=== PATIENT | female | born 1975 | race Caucasian/White ===

== ENCOUNTER 2017-12-13 01:00 | Emergency (ER) | payer SELFPAY ==
[2017-12-13 01:10] VITALS: BP 169/105; PULSE 89; RESP 18; TEMP 98.4
--- NOTE | 2017-12-13 01:27 | ED ---
Upper Extremity HPI - General Chief Complaint: Extremity Injury, Lower Stated Complaint: R Thumb Injury Time Seen by Provider: 12/13/17 01:17 Source: patient Mode of arrival: ambulatory Limitations: no limitations - History of Present Illness Initial Comments: This patient is a 42-year-old woman who presents to be evaluated for right thumb injury. The patient states that about 3 days ago she was doing some work with her hands and then "jammed" her thumb. She states that when she moved her hand she struck the end of her thumb directly. She indicates pain through the entire length of her thumb and the nail as well. Complaint: Injury to:: right, finger Onset/Timin -: days(s) (First) Other Extremity Injury: Fingers: Right (Thumb) Other Injuries: none Handedness: right Improves With: immobilization, medication Worsens With: movement of extremity Context: direct blow Associated Symptoms: denies other symptoms - Related Data Home Medications Medication Instructions Recorded Confirmed Ibuprofen [Motrin] 800 mg PO Q8HR PRN 12/22/15 10/17/16 Loperamide [Imodium] 2 mg PO QID 12/22/15 10/17/16 Dicyclomine HCl [Bentyl] 20 mg PO TID 04/02/16 10/17/16 Hydrochlorothiazide [Hydrodiuril] 12.5 mg PO DAILY 10/17/16 10/17/16 Previous Rx's Medication Instructions Recorded Cyclobenzaprine [Flexeril] 10 mg PO TID #14 tab 10/17/16 Ibuprofen [Motrin] 800 mg PO Q6HR PRN #20 tab 10/17/16 traMADol HCl [Ultram] 50 mg PO Q6H PRN #20 tab 12/13/17 Allergies Allergy/AdvReac Type Severity Reaction Status Date / Time Penicillins Allergy Unknown Verified 12/13/17 01:10 prochlorperazine edisylate Allergy Unknown Verified 12/13/17 01:10 [From Compazine] prochlorperazine maleate Allergy Unknown Verified 12/13/17 01:10 [From Compazine] Review of Systems ROS Statement: Those systems with pertinent positive or pertinent negative responses have been documented in the HPI. ROS Other: All systems not noted in ROS Statement are negative. Constitutional: Denies: fever, chills, weakness Musculoskeletal: Reports: as per HPI, arthralgia Skin: Denies: lesions Neurological: Denies: weakness, numbness, paresthesias Past Medical History Additional Past Medical History / Comment(s): anxiety,depression, irritable bowel, ptsd, crohn's disease History of Any Multi-Drug Resistant Organisms: None Reported Past Surgical History: No Surgical Hx Reported Additional Past Surgical History / Comment(s): laprascopy Past Psychological History: Anxiety, Depression, Panic Disorder, PTSD Smoking Status: Never smoker Past Alcohol Use History: None Reported Past Drug Use History: Marijuana General Exam Limitations: no limitations General appearance: alert, in no apparent distress Cardiovascular Exam: Present: other (Normal radial pulse and normal capillary refill) Right Forearm Wrist exam: Present: normal inspection, full ROM. Absent: tenderness, swelling Hand Wrist exam: Present: normal inspection, full ROM, tenderness (Right thumb) , swelling (Right thumb), subungual hematoma (There is approximately 5% subungual hematoma, not large enough for drainage), other (Patient does have some mild swelling and diffuse tenderness or upper thumb without point tenderness or palpable deformity.). Absent: abrasion, laceration, deformity, crepitus, dislocation, erythema, amputation, nail avulsion Neuro motor exam: Present: thumb opposition intact, thumb IP flexion intact, thumb adduction intact Neurosensory exam: Present: 2-point discrimination, radial nerve intact, ulnar nerve intact, median nerve intact Vascular: Present: normal capillary refill, radial pulse (Normal) Neurological exam: Present: alert. Absent: motor sensory deficit Course Vital Signs 12/13/17 01:06 Temperature 98.4 F Pulse Rate 89 Respiratory 18 Rate Blood Pressure 169/105 O2 Sat by Pulse 100 Oximetry Procedures - Orthopedic Splinting/Casting Injury #1 Side: right Upper Extremity Injury Location: finger (Thumb) Upper Extremity Immobilizer: thumb spica Disposition Clinical Impression: Sprain of hand, thumb, right Disposition: HOME SELF-CARE Condition: Good Instructions: Finger Sprain (ED) Prescriptions: traMADol HCl [Ultram] 50 mg PO Q6H PRN #20 tab PRN Reason: Pain Referrals: None,Stated [Primary Care Provider] - 1-2 days
--- NOTE | 2017-12-13 01:40 | XR ---
EXAMINATION TYPE: XR hand complete RT DATE OF EXAM: 12/13/2017 COMPARISON: NONE HISTORY: Thumb injury and pain TECHNIQUE: 4 views FINDINGS: I see no fracture nor dislocation. There is minor spurring of the IP joints. There are no e rosions. The thumb appears intact. Metacarpals are intact. IMPRESSION: No acute abnormality of the right hand.
[2017-12-13] MEDS ORDERED: traMADol 50 MG TAB PO STA (01:43)
== END 2017-12-13 02:25 | disposition home or self-care (01) ==
LOC: EC 01:00
DX: S63.601A Unspecified sprain of right thumb, initial encounter (principal); K58.9 Irritable bowel syndrome, unspecified; K50.90 Crohn's disease, unspecified, without complications; Z79.899 Other long term (current) drug therapy; Z88.0 Allergy status to penicillin; Z88.8 Allergy status to other drugs, medicaments and biological substances; W22.8XXA Striking against or struck by other objects, initial encounter; Y93.89 Activity, other specified
CPT/HCPCS: 29125; 99283

== ENCOUNTER 2018-02-03 13:49 | Emergency (ER) | payer OTHER ==
[2018-02-03 14:45] LABS: Basophils % (A) 1 %; Eosinophils # (A) 0.1 k/uL (0-0.7); Eosinophils % (A) 2 %; HCT 38.7 % (34.0-46.0); HGB 13.5 gm/dL (11.4-16.0); Lymphocytes # (A) 1.5 k/uL (1.0-4.8); Lymphocytes % (A) 19 %; MCH 30.3 pg (25.0-35.0); MCHC 34.8 g/dL (31.0-37.0); MCV 87.1 fL (80.0-100.0); Mean Platelet Volume 6.6; Monocytes # (A) 0.5 k/uL (0-1.0); Monocytes % (A) 6 %; Neutrophils # (A) 5.7 k/uL (1.3-7.7); Neutrophils % (A) 71 %; Platelet Count 323 k/uL (150-450); RBC 4.44 m/uL (3.80-5.40); RDW 12.8 % (11.5-15.5)
[2018-02-03 14:51] LABS: ALT 32 U/L (9-52); AST 26 U/L (14-36); Albumin 3.9 g/dL (3.5-5.0); Alkaline Phosphatase 65 U/L (38-126); Anion Gap 14 mmol/L; Blood Urea Nitrogen 12 mg/dL (7-17); Calcium 9.5 mg/dL (8.4-10.2); Carbon Dioxide 26 mmol/L (22-30); Chloride 105 mmol/L (98-107); Glucose 76 mg/dL (74-99); Potassium 3.3 mmol/L (3.5-5.1); Sodium 145 mmol/L (137-145); Total Bilirubin 0.4 mg/dL (0.2-1.3); Total Protein 7.2 g/dL (6.3-8.2)
[2018-02-03] MEDS ORDERED: SODIUM CHLORIDE 0.9% 1,000 ML IV STA (16:52)
[2018-02-03] MEDS ORDERED: MECLIZINE 12.5 MG TAB PO STA (16:53)
[2018-02-03] MEDS ORDERED: METOCLOPRAMIDE 5 MG/ML 2 ML VIAL IVP STA (16:54)
[2018-02-03 17:33] LABS: Partial Thromboplastin Time 24.1 sec (22.0-30.0); Prothrombin Time 9.7 sec (9.0-12.0)
[2018-02-03 17:35] LABS: Creatine Kinase 225 U/L (30-135)
[2018-02-03 17:48] LABS: Troponin I <0.012 ng/mL (0.000-0.034)
--- NOTE | 2018-02-03 18:02 | ED ---
Dizziness HPI - General Chief Complaint: Dizziness Stated Complaint: Weakness Time Seen by Provider: 02/03/18 16:03 Source: patient, RN notes reviewed, old records reviewed Mode of arrival: ambulatory Limitations: no limitations - History of Present Illness Initial Comments: 42-year-old female presents emergency department today chief complaint of back of balance. She reports that she's been having some headaches and complains of some right sharp ear pain. She also states that she is just been feeling generally weak and fatigued. Complains of chest pain, short of breath and some nausea episodes. She relates that she's been having some chest pain and dyspnea with exertion. Denies any fever or chills. She states she has no significant cardiac history. She reports that she feels like the room is spinning when she is at work. - Related Data Home Medications Medication Instructions Recorded Confirmed Loperamide [Imodium] 2 mg PO TID 12/22/15 02/03/18 Dextroamphetamine/Amphetamine 30 mg PO BID 02/03/18 02/03/18 [Adderall] Escitalopram [Lexapro] 5 mg PO DAILY 02/03/18 02/03/18 Ibuprofen [Motrin Ib] 400 mg PO Q6H PRN 02/03/18 02/03/18 clonazePAM [KlonoPIN] 0.5 mg PO BID 02/03/18 02/03/18 traZODone HCL 100 mg PO HS 02/03/18 02/03/18 Previous Rx's Medication Instructions Recorded Meclizine [Antivert] 25 mg PO BID #15 tab 02/03/18 Ondansetron Odt [Zofran Odt] 4 mg PO Q12HR PRN #20 tab 02/03/18 Allergies Allergy/AdvReac Type Severity Reaction Status Date / Time Penicillins Allergy Unknown Verified 02/03/18 16:39 prochlorperazine edisylate Allergy Unknown Verified 02/03/18 16:39 [From Compazine] prochlorperazine maleate Allergy Unknown Verified 02/03/18 16:39 [From Compazine] Review of Systems ROS Statement: Those systems with pertinent positive or pertinent negative responses have been documented in the HPI. ROS Other: All systems not noted in ROS Statement are negative. Past Medical History Additional Past Medical History / Comment(s): anxiety,depression, irritable bowel, ptsd, crohn's disease History of Any Multi-Drug Resistant Organisms: None Reported Past Surgical History: No Surgical Hx Reported Additional Past Surgical History / Comment(s): laprascopy Past Psychological History: Anxiety, Depression, Panic Disorder, PTSD Smoking Status: Never smoker Past Alcohol Use History: None Reported Past Drug Use History: Marijuana General Exam - General Exam Comments Initial Comments: 42-year-old female multiple chief complaints. Does not appear to be in any acute distress. Does complain of some dizziness. Only onto the bed rail to keep her per stable. Limitations: no limitations General appearance: alert, in no apparent distress Head exam: Present: atraumatic, normocephalic, normal inspection Eye exam: Present: normal appearance, PERRL, EOMI. Absent: scleral icterus, conjunctival injection, periorbital swelling ENT exam: Present: normal exam, normal oropharynx, mucous membranes moist Neck exam: Present: normal inspection. Absent: tenderness, meningismus, lymphadenopathy Respiratory exam: Present: normal lung sounds bilaterally. Absent: respiratory distress, wheezes, rales, rhonchi, stridor Cardiovascular Exam: Present: regular rate, normal rhythm, normal heart sounds. Absent: systolic murmur, diastolic murmur, rubs, gallop, clicks GI/Abdominal exam: Present: soft, normal bowel sounds. Absent: distended, tenderness, guarding, rebound, rigid Extremities exam: Present: normal inspection, full ROM, normal capillary refill. Absent: tenderness, pedal edema, joint swelling, calf tenderness Back exam: Present: normal inspection Neurological exam: Present: alert, oriented X3, CN II-XII intact Psychiatric exam: Present: normal affect, normal mood Skin exam: Present: warm, dry, intact, normal color. Absent: rash Course Vital Signs 02/03/18 02/03/18 02/03/18 13:50 17:47 19:04 Temperature 98.6 F Pulse Rate 100 91 76 Respiratory 18 16 16 Rate Blood Pressure 169/94 138/93 140/81 O2 Sat by Pulse 100 99 98 Oximetry - Reevaluation(s) Reevaluation #1: 02/03/18 20:04 Patient is reevaluated and resting comfortably in bed and sleeping. She reports her dizziness is resolving. At this time I discussed with the patient possible admission. 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 Medical Decision Making - Medical Decision Making This patient's a 42-year-old female presents emergency department today chief complaint of dizziness, room spinning. She also reports occasional chest pain and dyspnea on exertion. At this time patient is given IV fluids and lab work obtained. She is given Reglan and Benadryl for dizziness and nausea. She also given meclizine. Patient reports she's also had some episodes of hitting her head due to dizziness. CT brain was ordered negative for any abnormality's. Chest x-ray and EKG reviewed and normal. Patient's other lab work was unremarkable. She did have a mildly elevated CK-MB. When I review out of patient she was sleeping and resting comfortably. I informed her of all the results. I discussed possible admission for workup for the dyspnea on exertion and occasional chest pain. Patient states that she would actually prefer to go home. I will give the patient referral for us for cardiology and primary care provider. Discussed with normal EKG and normal troponin at that time they can be acceptable. I did discuss very strict return parameters and regards to further episodes of chest pain or shortness of breath. I at this time I do believe patient's dizziness is consistent with vertigo with her description of the room spinning. I will discharge the patient with meclizine nausea medication. Patient agrees to treatment plan will comply. - Lab Data Result diagrams: 02/03/18 14:21 02/03/18 14:21 Lab Results 02/03/18 02/03/18 02/03/18 Range/Units 14:21 14:21 14:21 WBC 8.0 (3.8-10.6) k/uL RBC 4.44 (3.80-5.40) m/uL Hgb 13.5 (11.4-16.0) gm/dL Hct 38.7 (34.0-46.0) % MCV 87.1 (80.0-100.0) fL MCH 30.3 (25.0-35.0) pg MCHC 34.8 (31.0-37.0) g/dL RDW 12.8 (11.5-15.5) % Plt Count 323 (150-450) k/uL Neutrophils % 71 % Lymphocytes % 19 % Monocytes % 6 % Eosinophils % 2 % Basophils % 1 % Neutrophils # 5.7 (1.3-7.7) k/uL Lymphocytes # 1.5 (1.0-4.8) k/uL Monocytes # 0.5 (0-1.0) k/uL Eosinophils # 0.1 (0-0.7) k/uL Basophils # 0.0 (0-0.2) k/uL PT (9.0-12.0) sec INR (<1.2) APTT (22.0-30.0) sec Sodium 145 (137-145) mmol/L Potassium 3.3 L (3.5-5.1) mmol/L Chloride 105 (98-107) mmol/L Carbon Dioxide 26 (22-30) mmol/L Anion Gap 14 mmol/L BUN 12 (7-17) mg/dL Creatinine 0.63 (0.52-1.04) mg/dL Est GFR (CKD-EPI)AfAm >90 (>60 ml/min/1.73 sqM) Est GFR (CKD-EPI)NonAf >90 (>60 ml/min/1.73 sqM) Glucose 76 (74-99) mg/dL Calcium 9.5 (8.4-10.2) mg/dL Magnesium (1.6-2.3) mg/dL Total Bilirubin 0.4 (0.2-1.3) mg/dL AST 26 (14-36) U/L ALT 32 (9-52) U/L Alkaline Phosphatase 65 (38-126) U/L Total Creatine Kinase 225 H (30-135) U/L CK-MB (CK-2) 5.0 H* (0.0-2.4) ng/mL CK-MB (CK-2) Rel Index 2.2 Troponin I <0.012 (0.000-0.034) ng/mL Total Protein 7.2 (6.3-8.2) g/dL Albumin 3.9 (3.5-5.0) g/dL Urine Color Urine Appearance (Clear) Urine pH (5.0-8.0) Ur Specific [place] (1.001-1.035) Urine Protein (Negative) Urine Glucose (UA) (Negative) Urine Ketones (Negative) Urine Blood (Negative) Urine Nitrite (Negative) Urine Bilirubin (Negative) Urine Urobilinogen (<2.0) mg/dL Ur Leukocyte Esterase (Negative) Ur Squamous Epith Cells (0-4) /hpf Urine Mucus (None) /hpf Urine Yeast (Budding) (None) /hpf Urine HCG, Qual (Not Detectd) 02/03/18 02/03/18 02/03/18 Range/Units 14:21 14:21 18:04 WBC (3.8-10.6) k/uL RBC (3.80-5.40) m/uL Hgb (11.4-16.0) gm/dL Hct (34.0-46.0) % MCV (80.0-100.0) fL MCH (25.0-35.0) pg MCHC (31.0-37.0) g/dL RDW (11.5-15.5) % Plt Count (150-450) k/uL Neutrophils % % Lymphocytes % % Monocytes % % Eosinophils % % Basophils % % Neutrophils # (1.3-7.7) k/uL Lymphocytes # (1.0-4.8) k/uL Monocytes # (0-1.0) k/uL Eosinophils # (0-0.7) k/uL Basophils # (0-0.2) k/uL PT 9.7 (9.0-12.0) sec INR 1.0 (<1.2) APTT 24.1 (22.0-30.0) sec Sodium (137-145) mmol/L Potassium (3.5-5.1) mmol/L Chloride (98-107) mmol/L Carbon Dioxide (22-30) mmol/L Anion Gap mmol/L BUN (7-17) mg/dL Creatinine (0.52-1.04) mg/dL Est GFR (CKD-EPI)AfAm (>60 ml/min/1.73 sqM) Est GFR (CKD-EPI)NonAf (>60 ml/min/1.73 sqM) Glucose (74-99) mg/dL Calcium (8.4-10.2) mg/dL Magnesium 1.8 (1.6-2.3) mg/dL Total Bilirubin (0.2-1.3) mg/dL AST (14-36) U/L ALT (9-52) U/L Alkaline Phosphatase (38-126) U/L Total Creatine Kinase (30-135) U/L CK-MB (CK-2) (0.0-2.4) ng/mL CK-MB (CK-2) Rel Index Troponin I (0.000-0.034) ng/mL Total Protein (6.3-8.2) g/dL Albumin (3.5-5.0) g/dL Urine Color Yellow Urine Appearance Cloudy H (Clear) Urine pH 6.5 (5.0-8.0) Ur Specific [place] 1.022 (1.001-1.035) Urine Protein Trace H (Negative) Urine Glucose (UA) Negative (Negative) Urine Ketones Negative (Negative) Urine Blood Negative (Negative) Urine Nitrite Negative (Negative) Urine Bilirubin Negative (Negative) Urine Urobilinogen <2.0 (<2.0) mg/dL Ur Leukocyte Esterase Negative (Negative) Ur Squamous Epith Cells 5 H (0-4) /hpf Urine Mucus Rare H (None) /hpf Urine Yeast (Budding) Many H (None) /hpf Urine HCG, Qual (Not Detectd) 02/03/18 Range/Units 18:04 WBC (3.8-10.6) k/uL RBC (3.80-5.40) m/uL Hgb (11.4-16.0) gm/dL Hct (34.0-46.0) % MCV (80.0-100.0) fL MCH (25.0-35.0) pg MCHC (31.0-37.0) g/dL RDW (11.5-15.5) % Plt Count (150-450) k/uL Neutrophils % % Lymphocytes % % Monocytes % % Eosinophils % % Basophils % % Neutrophils # (1.3-7.7) k/uL Lymphocytes # (1.0-4.8) k/uL Monocytes # (0-1.0) k/uL Eosinophils # (0-0.7) k/uL Basophils # (0-0.2) k/uL PT (9.0-12.0) sec INR (<1.2) APTT (22.0-30.0) sec Sodium (137-145) mmol/L Potassium (3.5-5.1) mmol/L Chloride (98-107) mmol/L Carbon Dioxide (22-30) mmol/L Anion Gap mmol/L BUN (7-17) mg/dL Creatinine (0.52-1.04) mg/dL Est GFR (CKD-EPI)AfAm (>60 ml/min/1.73 sqM) Est GFR (CKD-EPI)NonAf (>60 ml/min/1.73 sqM) Glucose (74-99) mg/dL Calcium (8.4-10.2) mg/dL Magnesium (1.6-2.3) mg/dL Total Bilirubin (0.2-1.3) mg/dL AST (14-36) U/L ALT (9-52) U/L Alkaline Phosphatase (38-126) U/L Total Creatine Kinase (30-135) U/L CK-MB (CK-2) (0.0-2.4) ng/mL CK-MB (CK-2) Rel Index Troponin I (0.000-0.034) ng/mL Total Protein (6.3-8.2) g/dL Albumin (3.5-5.0) g/dL Urine Color Urine Appearance (Clear) Urine pH (5.0-8.0) Ur Specific [place] (1.001-1.035) Urine Protein (Negative) Urine Glucose (UA) (Negative) Urine Ketones (Negative) Urine Blood (Negative) Urine Nitrite (Negative) Urine Bilirubin (Negative) Urine Urobilinogen (<2.0) mg/dL Ur Leukocyte Esterase (Negative) Ur Squamous Epith Cells (0-4) /hpf Urine Mucus (None) /hpf Urine Yeast (Budding) (None) /hpf Urine HCG, Qual Not Detected (Not Detectd) 02/03/18 20:04 EKG performed at 1421 cm number sinus rhythm, ventricular rate 94 bpm. VT interval 140 ms. QRS duration 96 ms. QT QTc is 366/457 ms. No evidence of ST elevation or T-wave inversion. No evidence of atrial or ventricular arrhythmias. - Radiology Data Radiology results: report reviewed Chest x-ray was reviewed and negative for any abnormalities. CT brain was negative for any abnormalities. Disposition Clinical Impression: Vertigo, Dizziness Disposition: HOME SELF-CARE Condition: Good Instructions: Dizziness (ED) Additional Instructions: Patient advised to follow-up with primary care provider. Return to emergency department if any alarming signs or symptoms occur. Prescriptions: Meclizine [Antivert] 25 mg PO BID #15 tab Ondansetron Odt [Zofran Odt] 4 mg PO Q12HR PRN #20 tab PRN Reason: Nausea Referrals: None,Stated [Primary Care Provider] - 1-2 days Trae Yanes MD [STAFF PHYSICIAN] - 1-2 days Silva Paredes MD [STAFF PHYSICIAN] - 1-2 days Carson East MD [STAFF PHYSICIAN] - 1-2 days Sukhdev Winters MD [STAFF PHYSICIAN] - 1-2 days Time of Disposition: 20:07
[2018-02-03 18:19] LABS: Appearance,Urine Cloudy (Clear); Bilirubin,Urine Negative (Negative); Blood,Urine Negative (Negative); Budding Yeast,Urine Many /hpf; Color,Urine Yellow; Glucose,Urine (UA) Negative (Negative); Ketones,Urine Negative (Negative); Leukocyte Esterase,Urine Negative (Negative); Mucus,Urine Rare /hpf; Nitrite,Urine Negative (Negative); PH, Urine 6.5 (5.0-8.0); Protein,Urine Trace (Negative); Specific Gravity,Urine 1.022 (1.001-1.035); Squamous Epithelial Cell,Urine 5 /hpf (0-4); Urobilinogen,Urine <2.0 mg/dL (<2.0)
--- NOTE | 2018-02-03 18:49 | CT ---
EXAMINATION TYPE: CT brain wo con DATE OF EXAM: 02/03/2018 COMPARISON: NONE HISTORY: Weakness and dizziness CT DLP: 822.6 mGycm. Automated Exposure Control for Dose Reduction was Utilized. TECHNIQUE: CT scan of the head is performed without contrast. FINDINGS: Ventricles and sulci appear normal. There is no mass effect nor midline shift. There is n o sign of intracranial hemorrhage. The calvarium is intact. CONCLUSION: Normal CT scan of the brain.
[2018-02-03] MEDS ORDERED: SODIUM CHLORIDE 0.9% 1,000 ML IV SCH (19:00)
--- NOTE | 2018-02-03 19:30 | XR ---
EXAMINATION TYPE: XR chest 2V DATE OF EXAM: 02/03/2018 COMPARISON: 10/17/2016 HISTORY: Weakness TECHNIQUE: Frontal and lateral views of the chest are obtained. FINDINGS: Heart and mediastinum are within normal limits. Lungs are clear. Diaphragm is normal. Bony thorax appears intact. IMPRESSION: Normal chest. No change.
[2018-02-03 20:31] VITALS: BP 119/84; PULSE 84; RESP 18; TEMP 97.8
== END 2018-02-03 20:30 | disposition home or self-care (01) ==
LOC: EC 13:49
DX: R42 Dizziness and giddiness (principal); R51 Headache; H92.01 Otalgia, right ear; R07.9 Chest pain, unspecified; R06.02 Shortness of breath; R11.0 Nausea; R53.83 Other fatigue; R53.1 Weakness; K58.9 Irritable bowel syndrome, unspecified; F32.9 Major depressive disorder, single episode, unspecified; F41.9 Anxiety disorder, unspecified; F41.0 Panic disorder [episodic paroxysmal anxiety]; Z79.899 Other long term (current) drug therapy; Z88.0 Allergy status to penicillin; Z88.8 Allergy status to other drugs, medicaments and biological substances
CPT/HCPCS: 36415; 93005; 80053; 82550; 82553; 83735; 84484; 85025; 85610; 85730; 81001; 81025; 71046; 70450; 99285; 96374; 96361; J2765

== ENCOUNTER 2018-04-02 20:46 | Emergency (ER) | payer SELFPAY ==
[2018-04-02] MEDS ORDERED: SODIUM CHLORIDE 0.9% 500 ML IV STA (21:56)
[2018-04-02] MEDS ORDERED: LORazepam 2 MG/ML INJ IV STA (21:56)
[2018-04-02] MEDS ORDERED: SCOPOLAMINE 1.5MG/72HR PATCH TRANSDERM STA (21:57)
--- NOTE | 2018-04-02 22:01 | ED ---
General Adult HPI - General Chief complaint: Dizziness Stated complaint: Dizziness Time Seen by Provider: 04/02/18 21:36 Source: patient, RN notes reviewed Mode of arrival: wheelchair Limitations: no limitations - History of Present Illness Initial comments: Patient is a pleasant 42-year-old female presenting to the emergency department complaining of dizziness. Symptoms have been intermittent for the past couple of days. Patient does have a history of similar symptoms previously at least 6 times. Patient has been seen in the emergency department previously for this and had reported negative head CT. Patient states symptoms are worse with getting up and better with lying down or rest. Patient just started new job and feels stress is a contributing factor. No confusion. No weakness. Patient also adds that she has lumps in her breast for over a year. - Related Data Home Medications Medication Instructions Recorded Confirmed Loperamide [Imodium] 2 mg PO TID 12/22/15 04/02/18 Dextroamphetamine/Amphetamine 30 mg PO BID 02/03/18 04/02/18 [Adderall] Escitalopram [Lexapro] 5 mg PO DAILY 02/03/18 04/02/18 Ibuprofen [Motrin Ib] 400 mg PO Q6H PRN 02/03/18 04/02/18 clonazePAM [KlonoPIN] 0.5 mg PO BID 02/03/18 04/02/18 traZODone HCL 100 mg PO HS 02/03/18 04/02/18 Previous Rx's Medication Instructions Recorded Meclizine [Antivert] 25 mg PO BID #15 tab 02/03/18 Ondansetron Odt [Zofran Odt] 4 mg PO Q12HR PRN #20 tab 02/03/18 Allergies Allergy/AdvReac Type Severity Reaction Status Date / Time Penicillins Allergy Unknown Verified 04/02/18 22:02 prochlorperazine edisylate Allergy Unknown Verified 04/02/18 22:02 [From Compazine] prochlorperazine maleate Allergy Unknown Verified 04/02/18 22:02 [From Compazine] Review of Systems ROS Statement: Those systems with pertinent positive or pertinent negative responses have been documented in the HPI. ROS Other: All systems not noted in ROS Statement are negative. Constitutional: Denies: fever Eyes: Denies: eye pain ENT: Denies: ear pain Respiratory: Denies: cough, dyspnea Cardiovascular: Denies: chest pain Endocrine: Reports: fatigue Gastrointestinal: Reports: nausea. Denies: abdominal pain Genitourinary: Denies: dysuria Musculoskeletal: Denies: back pain Skin: Denies: rash Neurological: Reports: vertigo. Denies: headache, weakness, confusion Psychiatric: Reports: anxiety Past Medical History Additional Past Medical History / Comment(s): anxiety,depression, irritable bowel, ptsd, crohn's disease. vertigo. History of Any Multi-Drug Resistant Organisms: None Reported Past Surgical History: No Surgical Hx Reported Additional Past Surgical History / Comment(s): laprascopy Past Psychological History: Anxiety, Depression, Panic Disorder, PTSD Smoking Status: Never smoker Past Alcohol Use History: None Reported Past Drug Use History: Marijuana General Exam Limitations: no limitations General appearance: alert, in no apparent distress, other (left breast Exam with mild fibrotic feeling lumps. Nontender and mobile. Small. RN Claudette is present.) Head exam: Present: atraumatic Eye exam: Present: normal appearance, PERRL, EOMI. Absent: nystagmus ENT exam: Present: normal oropharynx Neck exam: Present: normal inspection Respiratory exam: Present: normal lung sounds bilaterally Cardiovascular Exam: Present: regular rate, normal rhythm GI/Abdominal exam: Present: soft. Absent: tenderness Extremities exam: Present: normal inspection Neurological exam: Present: alert, oriented X3, CN II-XII intact. Absent: motor sensory deficit Expanded Cranial nerves: EOM's Intact: Normal, Facial Sensation: Normal Cerebellar function: Finger to Nose: Normal Sensory exam: Upper Extremity Light Touch: Normal, Lower Extremity Light Touch: Normal Motor strength exam: RUE: 5, LUE: 5, RLE: 5, LLE: 5 Eye Response: (4) open spontaneously Motor Response: (6) obeys commands Verbal Response: (5) oriented Psychiatric exam: Present: anxious Skin exam: Present: normal color Course Vital Signs 04/02/18 20:57 Temperature 98.7 F Pulse Rate 93 Respiratory 20 Rate Blood Pressure 132/88 O2 Sat by Pulse 100 Oximetry - Reevaluation(s) Reevaluation #1: 04/02/18 21:59 Patient is advised of need for follow-up regarding concerns for her breast. Patient is advised follow-up with the primary care physician and possible surgeon. Patient is advised that she should have ultrasound done as well as mammogram. EKG Findings - EKG Comments: EKG Findings:: Normal sinus rhythm 80. W[place] 158. QRS 82. QT 408. QTC 470. Normal axis. Normal QRS. No acute ST change. Medical Decision Making - Medical Decision Making Patient requesting discharge. Patient states she feels much better after scopolamine patch. Patient had refused further evaluation or other medications. Patient requests a work note for tonight. Patient was again advised for need for close follow-up with primary care physician and breast surgeon. Disposition Clinical Impression: Dizziness Disposition: HOME SELF-CARE Condition: Stable Instructions: Dizziness (ED) Additional Instructions: Please follow-up with primary care physician in the next day or 2 for recheck. Also consider follow-up with breast surgeon, numbers have been provided. Consider mammogram and ultrasound of the breast. Return for confusion, weakness , increased dizziness, speech problems, worsening or changing symptoms or other concerns. Is patient prescribed a controlled substance at d/c from ED?: No Referrals: Amelia Anna MD [STAFF PHYSICIAN] - 1-2 days Funmi Rao MD [STAFF PHYSICIAN] - 1-2 days Time of Disposition: 23:06
[2018-04-02 23:17] VITALS: BP 125/83; PULSE 82; RESP 18; TEMP 98.1
== END 2018-04-02 23:16 | disposition home or self-care (01) ==
LOC: EC 20:46
DX: R42 Dizziness and giddiness (principal); K58.9 Irritable bowel syndrome, unspecified; F32.9 Major depressive disorder, single episode, unspecified; F41.0 Panic disorder [episodic paroxysmal anxiety]; F43.10 Post-traumatic stress disorder, unspecified; Z79.899 Other long term (current) drug therapy; Z88.0 Allergy status to penicillin; Z88.8 Allergy status to other drugs, medicaments and biological substances; Z53.29 Procedure and treatment not carried out because of patient's decision for other reasons
CPT/HCPCS: 93005; 99284

== ENCOUNTER 2018-05-30 08:11 | Emergency (ER) | payer OTHER ==
[2018-05-30 08:17] VITALS: RESP 18; TEMP 98.4
--- NOTE | 2018-05-30 08:32 | ED ---
General Adult HPI - General Chief complaint: Skin/Abscess/Foreign Body Stated complaint: FB left ear (insect) Time Seen by Provider: 05/30/18 08:26 Source: patient, RN notes reviewed Mode of arrival: ambulatory Limitations: no limitations - History of Present Illness Initial comments: Patient is a 43-year-old female presenting to the emergency room today with a chief complaint of a bump to the left ear. She states she woke up this morning and she felt something crawling. She felt the inside of her ear. She states she pushed down on the tragus and believes she killed it. She states she does not feel it moving anymore been strapped. Patient denies any other complaints or symptoms. - Related Data Home Medications Medication Instructions Recorded Confirmed Loperamide [Imodium] 2 mg PO TID 12/22/15 05/30/18 Dextroamphetamine/Amphetamine 30 mg PO BID 02/03/18 05/30/18 [Adderall] Escitalopram [Lexapro] 5 mg PO DAILY 02/03/18 05/30/18 Ibuprofen [Motrin Ib] 400 mg PO Q6H PRN 02/03/18 05/30/18 clonazePAM [KlonoPIN] 0.5 mg PO BID 02/03/18 05/30/18 traZODone HCL 100 mg PO HS 02/03/18 05/30/18 Previous Rx's Medication Instructions Recorded Meclizine [Antivert] 25 mg PO BID #15 tab 02/03/18 Ondansetron Odt [Zofran Odt] 4 mg PO Q12HR PRN #20 tab 02/03/18 Allergies Allergy/AdvReac Type Severity Reaction Status Date / Time Penicillins Allergy Unknown Verified 05/30/18 08:17 prochlorperazine edisylate Allergy Unknown Verified 05/30/18 08:17 [From Compazine] prochlorperazine maleate Allergy Unknown Verified 05/30/18 08:17 [From Compazine] Review of Systems ROS Statement: Those systems with pertinent positive or pertinent negative responses have been documented in the HPI. ROS Other: All systems not noted in ROS Statement are negative. Past Medical History Additional Past Medical History / Comment(s): anxiety,depression, irritable bowel, ptsd, crohn's disease. vertigo. hypoglycemia History of Any Multi-Drug Resistant Organisms: None Reported Past Surgical History: No Surgical Hx Reported Additional Past Surgical History / Comment(s): laprascopy Past Psychological History: Anxiety, Depression, Panic Disorder, PTSD Smoking Status: Never smoker Past Alcohol Use History: None Reported Past Drug Use History: Marijuana General Exam - General Exam Comments Initial Comments: General: The patient is awake and alert, in no distress, and does not appear acutely ill. Ears, nose, mouth and throat: There are moist mucous membranes and no oral lesions. There is a insect located to left ear canal. Right TM is clear. Neck: The neck is supple. Musculoskeletal: Normal ROM, no tenderness. Strength 5/5. Sensation intact. Neurological: A&O x 3. CN II-XII intact, There are no obvious motor or sensory deficits. Coordination appears grossly intact. Speech is normal. Skin: Skin is warm and dry and no rashes or lesions are noted. Psychiatric: Cooperative, appropriate mood & affect, normal judgment. Limitations: no limitations Course Vital Signs 05/30/18 05/30/18 08:15 08:40 Temperature 98.4 F Pulse Rate 87 84 Respiratory 18 18 Rate Blood Pressure 119/80 126/82 O2 Sat by Pulse 100 98 Oximetry Procedures - Procedures Initial comment: Attempt was made by nursing staff to irrigate the ear. Patient became dizzy. Does have a history of vertigo. She was given meclizine. Patient did have a insect located to the left ear canal. Forceps were used by attending physician Dr. Emmanuel was able to retrieve the insect intact. TM behind it is not clear Disposition Clinical Impression: Ear foreign body Disposition: HOME SELF-CARE Condition: Good Instructions: Ear Foreign Body (ED) Additional Instructions: Please follow-up with family doctor or ENT specialist if symptoms do not completely resolve over the next 2-5 days. Please return to emergency room for any other concerns. Is patient prescribed a controlled substance at d/c from ED?: No Referrals: None,Stated [Primary Care Provider] - 1-2 days Time of Disposition: 09:34
[2018-05-30] MEDS ORDERED: MECLIZINE 12.5 MG TAB PO STA (08:36)
[2018-05-30 08:46] VITALS: BP 126/82; PULSE 84
== END 2018-05-30 09:49 | disposition home or self-care (01) ==
LOC: EC 08:11
DX: T16.2XXA Foreign body in left ear, initial encounter (principal); F41.9 Anxiety disorder, unspecified; F32.9 Major depressive disorder, single episode, unspecified; F43.10 Post-traumatic stress disorder, unspecified; K58.9 Irritable bowel syndrome, unspecified; Z79.899 Other long term (current) drug therapy; Z88.0 Allergy status to penicillin; Z88.8 Allergy status to other drugs, medicaments and biological substances
CPT/HCPCS: 69200; 99282

== ENCOUNTER 2018-06-17 05:19 | Emergency (ER) | payer OTHER ==
[2018-06-17 05:25] VITALS: RESP 16
[2018-06-17 06:24] LABS: Basophils # (A) 0.1 k/uL (0-0.2); Basophils % (A) 0 %; Eosinophils # (A) 0.1 k/uL (0-0.7); Eosinophils % (A) 1 %; HGB 14.9 gm/dL (11.4-16.0); Lymphocytes # (A) 3.1 k/uL (1.0-4.8); Lymphocytes % (A) 21 %; MCH 30.5 pg (25.0-35.0); MCHC 33.1 g/dL (31.0-37.0); MCV 92.1 fL (80.0-100.0); Mean Platelet Volume 6.7; Monocytes # (A) 1.2 k/uL (0-1.0); Monocytes % (A) 8 %; Neutrophils # (A) 9.9 k/uL (1.3-7.7); Neutrophils % (A) 68 %; Platelet Count 352 k/uL (150-450); RBC 4.89 m/uL (3.80-5.40); WBC 14.6 k/uL (3.8-10.6)
[2018-06-17 06:30] LABS: Appearance,Urine Clear (Clear); Bacteria,Urine Rare /hpf; Bilirubin,Urine Negative (Negative); Blood,Urine Trace (Negative); Color,Urine Yellow; Glucose,Urine (UA) Negative (Negative); Hyaline Casts,Urine 36 /lpf (0-2); Ketones,Urine Negative (Negative); Leukocyte Esterase,Urine Negative (Negative); Mucus,Urine Rare /hpf; Nitrite,Urine Negative (Negative); PH, Urine 5.5 (5.0-8.0); Protein,Urine Trace (Negative); RBC,Urine 1 /hpf (0-5); Specific Gravity,Urine 1.022 (1.001-1.035); Urobilinogen,Urine <2.0 mg/dL (<2.0); WBC,Urine 7 /hpf (0-5)
[2018-06-17 06:34] LABS: Albumin 5.1 g/dL (3.5-5.0); Calcium 11.5 mg/dL (8.4-10.2); Total Bilirubin 0.8 mg/dL (0.2-1.3); Total Protein 9.4 g/dL (6.3-8.2)
[2018-06-17 07:05] LABS: Potassium 4.3 mmol/L (3.5-5.1)
[2018-06-17] MEDS ORDERED: SODIUM CHLORIDE 0.9% 1,000 ML IV ONE ×2 (07:20→07:28)
--- NOTE | 2018-06-17 07:23 | ED ---
General Adult HPI - General Chief complaint: Abdominal Pain Stated complaint: Abd pain Time Seen by Provider: 06/17/18 05:30 Source: patient Mode of arrival: ambulatory Limitations: no limitations - History of Present Illness Initial comments: Tabitha is a 43-year-old female with past medical history of Crohn's disease since the emergency department today for evaluation of lower abdominal pain. 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 She reports that she's been doing well. However the past couple days she's developed some lower abdominal pain. Pain is primarily in the suprapubic and right lower abdomen but radiates as a cramping throughout the entire abdomen. Pain is worse with palpation or movement. Pain improved somewhat when laying flat and relaxing. Pain is not associated with eating the patient reports that she's had decreased appetite today. Her last bowel movement was 2 days ago. Patient denies any dysuria or hematuria. Patient does report that approximately 2 years ago she was hospitalized at an outside hospital for a bowel obstruction, she reports that this pain is somewhat similar but lower in her abdomen than previous. Patient reports that her last period was last month, she reports that she is currently sexually active and not use any form of control. She reports there is possibility that she is . - Related Data Home Medications Medication Instructions Recorded Confirmed Loperamide [Imodium] 2 mg PO TID 12/22/15 05/30/18 Dextroamphetamine/Amphetamine 30 mg PO BID 02/03/18 05/30/18 [Adderall] Escitalopram [Lexapro] 5 mg PO DAILY 02/03/18 05/30/18 Ibuprofen [Motrin Ib] 400 mg PO Q6H PRN 02/03/18 05/30/18 clonazePAM [KlonoPIN] 0.5 mg PO BID 02/03/18 05/30/18 traZODone HCL 100 mg PO HS 02/03/18 05/30/18 Previous Rx's Medication Instructions Recorded Meclizine [Antivert] 25 mg PO BID #15 tab 02/03/18 Ondansetron Odt [Zofran Odt] 4 mg PO Q12HR PRN #20 tab 02/03/18 Allergies Allergy/AdvReac Type Severity Reaction Status Date / Time Penicillins Allergy Unknown Verified 08/05/18 08:17 prochlorperazine edisylate Allergy Unknown Verified 05/30/18 08:17 [From Compazine] prochlorperazine maleate Allergy Unknown Verified 05/30/18 08:17 [From streamitazine] Review of Systems ROS Statement: Those systems with pertinent positive or pertinent negative responses have been documented in the HPI. ROS Other: All systems not noted in ROS Statement are negative. Past Medical History Additional Past Medical History / Comment(s): anxiety,depression, irritable bowel, ptsd, crohn's disease. vertigo. hypoglycemia History of Any Multi-Drug Resistant Organisms: None Reported Past Surgical History: No Surgical Hx Reported Additional Past Surgical History / Comment(s): laprascopy Past Psychological History: Anxiety, Depression, Panic Disorder, PTSD Smoking Status: Never smoker Past Alcohol Use History: None Reported Past Drug Use History: Marijuana General Exam Limitations: no limitations Course Vital Signs 06/17/18 05:22 Temperature 97.7 F Pulse Rate 108 H Respiratory 16 Rate Blood Pressure 155/92 O2 Sat by Pulse 100 Oximetry Medical Decision Making - Medical Decision Making Patient with vague abdominal pain, history of Crohn's and bowel obstructions per the patient Labs and imaging were ordered Labs with mild leukocytosis as well as significant acute kidney injury with a creatinine of 1.7, baseline creatinine was 0.6 Urine with no evidence of urinary tract infection or hematuria, however multiple hyaline casts 2L fluid bolus was ordered Computed tomography scan of the abdomen revealed no acute pathology Results were discussed with the patient, patient expresses relief. Patient requesting Motrin for her rheumatoid arthritis pain. I advised patient that due to her kidney injury we should avoid Motrin but she can have Tylenol. Bise patient to follow up with primary care physician and pharmacologist for management of room toyed pain. Also advised her to follow up with gastroenterology due to her history of Crohn's disease not currently being treated Questions pertaining to care were answered to the best of my ability, return parameters were discussed, patient was discharged home in stable condition - Lab Data Result diagrams: 06/17/18 06:08 06/17/18 06:08 Lab Results 06/17/18 06/17/18 06/17/18 Range/Units 06:08 06:08 06:08 WBC 14.6 H (3.8-10.6) k/uL RBC 4.89 (3.80-5.40) m/uL Hgb 14.9 (11.4-16.0) gm/dL Hct 45.0 (34.0-46.0) % MCV 92.1 (80.0-100.0) fL MCH 30.5 (25.0-35.0) pg MCHC 33.1 (31.0-37.0) g/dL RDW 13.0 (11.5-15.5) % Plt Count 352 (150-450) k/uL Neutrophils % 68 % Lymphocytes % 21 % Monocytes % 8 % Eosinophils % 1 % Basophils % 0 % Neutrophils # 9.9 H (1.3-7.7) k/uL Lymphocytes # 3.1 (1.0-4.8) k/uL Monocytes # 1.2 H (0-1.0) k/uL Eosinophils # 0.1 (0-0.7) k/uL Basophils # 0.1 (0-0.2) k/uL Sodium 139 (137-145) mmol/L Potassium 4.3 (3.5-5.1) mmol/L Chloride 99 (98-107) mmol/L Carbon Dioxide 25 (22-30) mmol/L Anion Gap 15 mmol/L BUN 36 H (7-17) mg/dL Creatinine 1.70 H (0.52-1.04) mg/dL Est GFR (CKD-EPI)AfAm 42 (>60 ml/min/1.73 sqM) Est GFR (CKD-EPI)NonAf 36 (>60 ml/min/1.73 sqM) Glucose 85 (74-99) mg/dL Calcium 11.5 H (8.4-10.2) mg/dL Total Bilirubin 0.8 (0.2-1.3) mg/dL AST 35 (14-36) U/L ALT 79 H (9-52) U/L Alkaline Phosphatase 70 (38-126) U/L Total Protein 9.4 H (6.3-8.2) g/dL Albumin 5.1 H (3.5-5.0) g/dL Lipase 34 (23-300) U/L Urine Color Yellow Urine Appearance Clear (Clear) Urine pH 5.5 (5.0-8.0) Ur Specific [place] 1.022 (1.001-1.035) Urine Protein Trace H (Negative) Urine Glucose (UA) Negative (Negative) Urine Ketones Negative (Negative) Urine Blood Trace H (Negative) Urine Nitrite Negative (Negative) Urine Bilirubin Negative (Negative) Urine Urobilinogen <2.0 (<2.0) mg/dL Ur Leukocyte Esterase Negative (Negative) Urine RBC 1 (0-5) /hpf Urine WBC 7 H (0-5) /hpf Urine Bacteria Rare H (None) /hpf Hyaline Casts 36 H (0-2) /lpf Urine Mucus Rare H (None) /hpf Urine HCG, Qual (Not Detectd) 06/17/18 Range/Units 06:08 WBC (3.8-10.6) k/uL RBC (3.80-5.40) m/uL Hgb (11.4-16.0) gm/dL Hct (34.0-46.0) % MCV (80.0-100.0) fL MCH (25.0-35.0) pg MCHC (31.0-37.0) g/dL RDW (11.5-15.5) % Plt Count (150-450) k/uL Neutrophils % % Lymphocytes % % Monocytes % % Eosinophils % % Basophils % % Neutrophils # (1.3-7.7) k/uL Lymphocytes # (1.0-4.8) k/uL Monocytes # (0-1.0) k/uL Eosinophils # (0-0.7) k/uL Basophils # (0-0.2) k/uL Sodium (137-145) mmol/L Potassium (3.5-5.1) mmol/L Chloride (98-107) mmol/L Carbon Dioxide (22-30) mmol/L Anion Gap mmol/L BUN (7-17) mg/dL Creatinine (0.52-1.04) mg/dL Est GFR (CKD-EPI)AfAm (>60 ml/min/1.73 sqM) Est GFR (CKD-EPI)NonAf (>60 ml/min/1.73 sqM) Glucose (74-99) mg/dL Calcium (8.4-10.2) mg/dL Total Bilirubin (0.2-1.3) mg/dL AST (14-36) U/L ALT (9-52) U/L Alkaline Phosphatase (38-126) U/L Total Protein (6.3-8.2) g/dL Albumin (3.5-5.0) g/dL Lipase (23-300) U/L Urine Color Urine Appearance (Clear) Urine pH (5.0-8.0) Ur Specific [place] (1.001-1.035) Urine Protein (Negative) Urine Glucose (UA) (Negative) Urine Ketones (Negative) Urine Blood (Negative) Urine Nitrite (Negative) Urine Bilirubin (Negative) Urine Urobilinogen (<2.0) mg/dL Ur Leukocyte Esterase (Negative) Urine RBC (0-5) /hpf Urine WBC (0-5) /hpf Urine Bacteria (None) /hpf Hyaline Casts (0-2) /lpf Urine Mucus (None) /hpf Urine HCG, Qual Not Detected (Not Detectd) Disposition Clinical Impression: Abdominal pain, Dehydration, Acute kidney injury Disposition: HOME SELF-CARE Condition: Good Instructions: Abdominal Pain (ED), Dehydration (ED) Is patient prescribed a controlled substance at d/c from ED?: No Referrals: None,Stated [Primary Care Provider] - 1-2 days Ayala Phelps MD [REFERRING] - 1-2 days Sahra Bernstein MD [STAFF PHYSICIAN] - 1-2 days Time of Disposition: 08:13
--- NOTE | 2018-06-17 07:41 | CT ---
EXAMINATION TYPE: CT abdomen pelvis w con DATE OF EXAM: 06/17/2018 COMPARISON: None INDICATION: Abdominal pain DLP: 991.00 mGycm, Automated exposure control for dose reduction was used. CONTRAST: 100 ml mL of Isovue 300. Study performed without Oral Contrast TECHNIQUE: Axial images were obtained from above the diaphragm to the pubic rami in the axial plane a t 5 mm thick sections. Reconstructed images are reviewed on the computer in the coronal plane. FINDINGS: Limited CT sections are obtained the lung bases. The lung bases are clear. CT ABDOMEN: Liver: Normal Spleen: Normal Pancreas: Normal Adrenal glands: The adrenal glands are normal. Gallbladder: Surgically absent Kidneys: No masses are evident. No hydronephrosis is present. No cysts are present. Delayed images were obtained through the kidneys, which remain unremarkable. There is a 0.5 cm calcification within the lateral right renal cortex. Aorta: Vascular calcification is within the aorta. Inferior vena cava: Normal. CT PELVIS: Loops of bowel within the abdomen and pelvis are normal. There are loops of bowel which are incom pletely distended or lack oral contrast limiting their evaluation. Appendix: Not identified. No suspicious inflammatory changes are identified. Urinary bladder: Decompressed with some limitation on evaluation Genitourinary structures: Uterus is unremarkable. Adnexal regions are clear. Osseous structures: No suspicious lytic or sclerotic lesions. IMPRESSIONS: 1. No suspicious abnormality to account for abdominal pain.
[2018-06-17] MEDS ORDERED: ACETAMINOPHEN TAB 325 MG TAB PO STA (08:13)
[2018-06-17 10:08] VITALS: BP 142/90; PULSE 100; TEMP 97.2
== END 2018-06-17 10:08 | disposition home or self-care (01) ==
LOC: EC 05:19
DX: E86.0 Dehydration (principal); N17.9 Acute kidney failure, unspecified; D72.829 Elevated white blood cell count, unspecified; R10.84 Generalized abdominal pain; R63.8 Other symptoms and signs concerning food and fluid intake; F32.9 Major depressive disorder, single episode, unspecified; F41.9 Anxiety disorder, unspecified; Z88.0 Allergy status to penicillin; Z88.8 Allergy status to other drugs, medicaments and biological substances; Z79.899 Other long term (current) drug therapy
CPT/HCPCS: 99284; 96360; 96361 ×2; 36415; 80053; 83690; 85025; 81001; 81025; 87086; 74177; Q9967

== ENCOUNTER 2018-07-01 04:36 | Emergency (ER) | payer OTHER ==
[2018-07-01 04:43] VITALS: BP 162/104; PULSE 89; RESP 18; TEMP 98.2
[2018-07-01 05:03] LABS: Glucose,Whole Blood 96 mg/dL (75-99)
[2018-07-01 06:48] LABS: Basophils # (A) 0.1 k/uL (0-0.2); Basophils % (A) 0 %; Eosinophils # (A) 0.1 k/uL (0-0.7); Eosinophils % (A) 1 %; HCT 43.1 % (34.0-46.0); HGB 14.2 gm/dL (11.4-16.0); Lymphocytes # (A) 2.6 k/uL (1.0-4.8); Lymphocytes % (A) 19 %; MCH 30.4 pg (25.0-35.0); Mean Platelet Volume 6.5; Monocytes # (A) 0.8 k/uL (0-1.0); Monocytes % (A) 6 %; Neutrophils # (A) 9.8 k/uL (1.3-7.7); Neutrophils % (A) 72 %; Platelet Count 374 k/uL (150-450); RBC 4.68 m/uL (3.80-5.40); RDW 13.1 % (11.5-15.5); WBC 13.6 k/uL (3.8-10.6)
[2018-07-01 06:59] LABS: Albumin 4.7 g/dL (3.5-5.0); Anion Gap 13 mmol/L; Calcium 9.6 mg/dL (8.4-10.2); Carbon Dioxide 25 mmol/L (22-30); Chloride 102 mmol/L (98-107); Glucose 87 mg/dL (74-99); Sodium 140 mmol/L (137-145); Total Bilirubin 0.7 mg/dL (0.2-1.3); Total Protein 8.7 g/dL (6.3-8.2)
[2018-07-01 07:16] LABS: ALT 34 U/L (9-52); AST 35 U/L (14-36); Alkaline Phosphatase 62 U/L (38-126); Blood Urea Nitrogen 22 mg/dL (7-17)
[2018-07-01] MEDS ORDERED: ONDANSETRON 4 MG/2 ML VIAL IVP STA (08:22)
[2018-07-01] MEDS ORDERED: MECLIZINE 12.5 MG TAB PO STA (08:22)
[2018-07-01] MEDS ORDERED: KETOROLAC 30 MG/ML 1 ML VIAL IVP STA (08:22)
--- NOTE | 2018-07-01 08:23 | ED ---
General Adult HPI - General Chief complaint: Dizziness Stated complaint: Dizziness Time Seen by Provider: 07/01/18 07:27 Source: patient, RN notes reviewed, old records reviewed Mode of arrival: EMS Limitations: no limitations - History of Present Illness Initial comments: This is a 43-year-old female to the ER for evaluation. Patient was essay for evaluation regards to dizziness. Spinning, vertiginous type symptoms. Patient denies any headache no chest pain or shortness of breath no abdominal pain, no nausea vomiting or diarrhea. No recent medication changes denies drugs rel call. No modifying factors for symptoms. Patient currently symptom free. She does admit that it feels like prior ear infection - Related Data Home Medications Medication Instructions Recorded Confirmed Loperamide [Imodium] 2 mg PO TID 12/22/15 07/07/18 Dextroamphetamine/Amphetamine 30 mg PO BID 02/03/18 07/07/18 [Adderall] Escitalopram [Lexapro] 20 mg PO DAILY 02/03/18 07/07/18 clonazePAM [KlonoPIN] 0.5 mg PO BID 02/03/18 07/07/18 traZODone HCL 150 mg PO HS 02/03/18 07/07/18 Lisinopril [Prinivil] 20 mg PO DAILY 07/07/18 07/07/18 Meclizine [Antivert] 25 mg PO TID PRN 07/07/18 07/07/18 Previous Rx's Medication Instructions Recorded Ondansetron Odt [Zofran ODT] 4 mg PO Q8HR PRN #30 tab 07/01/18 Lisinopril [Prinivil] 20 mg PO DAILY #30 tablet 07/07/18 Allergies Allergy/AdvReac Type Severity Reaction Status Date / Time Penicillins Allergy Unknown Verified 07/07/18 14:25 prochlorperazine edisylate Allergy Unknown Verified 07/07/18 14:25 [From Compazine] prochlorperazine maleate Allergy Unknown Verified 07/07/18 14:25 [From Compazine] Review of Systems ROS Statement: Those systems with pertinent positive or pertinent negative responses have been documented in the HPI. ROS Other: All systems not noted in ROS Statement are negative. Past Medical History Additional Past Medical History / Comment(s): anxiety,depression, irritable bowel, ptsd, crohn's disease. vertigo. hypoglycemia History of Any Multi-Drug Resistant Organisms: None Reported Past Surgical History: No Surgical Hx Reported Additional Past Surgical History / Comment(s): laprascopy, Past Psychological History: Anxiety, Depression, Panic Disorder, PTSD Smoking Status: Never smoker Past Alcohol Use History: None Reported Past Drug Use History: None Reported General Exam Limitations: no limitations General appearance: anxious Head exam: Present: atraumatic, normocephalic, normal inspection Eye exam: Present: normal appearance, PERRL, EOMI. Absent: scleral icterus, conjunctival injection, periorbital swelling ENT exam: Present: normal exam, mucous membranes moist Neck exam: Present: normal inspection. Absent: tenderness, meningismus, lymphadenopathy Respiratory exam: Present: normal lung sounds bilaterally. Absent: respiratory distress, wheezes, rales, rhonchi, stridor Cardiovascular Exam: Present: regular rate, normal rhythm, normal heart sounds. Absent: systolic murmur, diastolic murmur, rubs, gallop, clicks GI/Abdominal exam: Present: soft, normal bowel sounds. Absent: distended, tenderness, guarding, rebound, rigid Extremities exam: Present: normal inspection, full ROM, normal capillary refill. Absent: tenderness, pedal edema, joint swelling, calf tenderness Back exam: Present: normal inspection Neurological exam: Present: alert, oriented X3, CN II-XII intact Psychiatric exam: Present: normal affect, normal mood Skin exam: Present: warm, dry, intact, normal color. Absent: rash Course Vital Signs 07/01/18 04:37 Temperature 98.2 F Pulse Rate 89 Respiratory 18 Rate Blood Pressure 162/104 O2 Sat by Pulse 100 Oximetry Medical Decision Making - Medical Decision Making 43 female with nonspecific dizziness, vertiginous type symptoms. Occasional chest pain. Patient is really without symptoms currently. Does feel mildly anxious. Lab values are normal. Patient can be discharged home - Lab Data Result diagrams: 07/01/18 06:27 07/01/18 06:27 Lab Results 07/01/18 07/01/18 07/01/18 Range/Units 04:44 06:27 06:27 WBC 13.6 H (3.8-10.6) k/uL RBC 4.68 (3.80-5.40) m/uL Hgb 14.2 (11.4-16.0) gm/dL Hct 43.1 (34.0-46.0) % MCV 92.0 (80.0-100.0) fL MCH 30.4 (25.0-35.0) pg MCHC 33.0 (31.0-37.0) g/dL RDW 13.1 (11.5-15.5) % Plt Count 374 (150-450) k/uL Neutrophils % 72 % Lymphocytes % 19 % Monocytes % 6 % Eosinophils % 1 % Basophils % 0 % Neutrophils # 9.8 H (1.3-7.7) k/uL Lymphocytes # 2.6 (1.0-4.8) k/uL Monocytes # 0.8 (0-1.0) k/uL Eosinophils # 0.1 (0-0.7) k/uL Basophils # 0.1 (0-0.2) k/uL Sodium 140 (137-145) mmol/L Potassium 4.0 (3.5-5.1) mmol/L Chloride 102 (98-107) mmol/L Carbon Dioxide 25 (22-30) mmol/L Anion Gap 13 mmol/L BUN 22 H (7-17) mg/dL Creatinine 0.76 (0.52-1.04) mg/dL Est GFR (CKD-EPI)AfAm >90 (>60 ml/min/1.73 sqM) Est GFR (CKD-EPI)NonAf >90 (>60 ml/min/1.73 sqM) Glucose 87 (74-99) mg/dL POC Glucose (mg/dL) 96 (75-99) mg/dL POC Glu Seed Laboratory Technician ID Damaris Edward Calcium 9.6 (8.4-10.2) mg/dL Total Bilirubin 0.7 (0.2-1.3) mg/dL AST 35 (14-36) U/L ALT 34 (9-52) U/L Alkaline Phosphatase 62 (38-126) U/L Total Protein 8.7 H (6.3-8.2) g/dL Albumin 4.7 (3.5-5.0) g/dL - Radiology Data Radiology results: report reviewed (Chest x-rays negative), image reviewed Disposition Clinical Impression: Dizziness, Anxiety Disposition: HOME SELF-CARE Condition: Good Instructions: Dizziness (ED) Prescriptions: Ondansetron Odt [Zofran ODT] 4 mg PO Q8HR PRN #30 tab PRN Reason: nausea/vomiting Is patient prescribed a controlled substance at d/c from ED?: No Referrals: None,Stated [Primary Care Provider] - 1-2 days
== END 2018-07-01 08:36 | disposition home or self-care (01) ==
LOC: EC 04:36
DX: F41.9 Anxiety disorder, unspecified (principal); R42 Dizziness and giddiness; R07.9 Chest pain, unspecified; F32.9 Major depressive disorder, single episode, unspecified; Z88.0 Allergy status to penicillin; Z88.8 Allergy status to other drugs, medicaments and biological substances; Z79.899 Other long term (current) drug therapy
CPT/HCPCS: 36415; 93005; 80053; 85025; 99285; 96374; 96375; J2405; J1885

== ENCOUNTER 2018-07-07 13:19 | Emergency (ER) | payer OTHER ==
[2018-07-07 13:30] VITALS: RESP 16
[2018-07-07] MEDS ORDERED: KETOROLAC 30 MG/ML 1 ML VIAL IM STA (13:48)
[2018-07-07] MEDS ORDERED: LORazepam 1 MG TAB PO STA (13:48)
--- NOTE | 2018-07-07 13:53 | ED ---
General Adult HPI - General Chief complaint: Chest Pain Stated complaint: HYPERTENSION, HEADACHE, ANXIETY Source: patient Mode of arrival: EMS Limitations: no limitations - History of Present Illness Initial comments: Dictation was produced using [employer] dictation software. please excuse any grammatical, word or spelling errors. Chief Complaint: 43-year-old female presents with chest tightness, neuro symptoms after having argument with her boyfriend. History of Present Illness: Patient is tearful upon giving HPI. Patient states that over the past week patient has been having a lot of confrontations with her boyfriend. She states that over the weekend she had an argument. She is a recovering narcotic abuser. She was upset because her boyfriend brought narcotic pills to the house. They had a huge argument. Today patient was at the cell phone store when she began receiving texts from her boyfriend which caused her to become severely anxious. Patient has any cardiac history. Patient denies any medical history. The ROS documented in this emergency department record has been reviewed and confirmed by me. Those systems with pertinent positive or negative responses have been documented in the HPI. All other systems are other negative and/or noncontributory. - Related Data Home Medications Medication Instructions Recorded Confirmed Loperamide [Imodium] 2 mg PO TID 12/22/15 07/07/18 Dextroamphetamine/Amphetamine 30 mg PO BID 02/03/18 07/07/18 [Adderall] Escitalopram [Lexapro] 20 mg PO DAILY 02/03/18 07/07/18 clonazePAM [KlonoPIN] 0.5 mg PO BID 02/03/18 07/07/18 traZODone HCL 150 mg PO HS 02/03/18 07/07/18 Lisinopril [Prinivil] 20 mg PO DAILY 07/07/18 07/07/18 Meclizine [Antivert] 25 mg PO TID PRN 07/07/18 07/07/18 Previous Rx's Medication Instructions Recorded Ondansetron Odt [Zofran ODT] 4 mg PO Q8HR PRN #30 tab 07/01/18 Lisinopril [Prinivil] 20 mg PO DAILY #30 tablet 07/07/18 Allergies Allergy/AdvReac Type Severity Reaction Status Date / Time Penicillins Allergy Unknown Verified 07/07/18 14:25 prochlorperazine edisylate Allergy Unknown Verified 07/07/18 14:25 [From Compazine] prochlorperazine maleate Allergy Unknown Verified 07/07/18 14:25 [From Compazine] Review of Systems ROS Statement: Those systems with pertinent positive or pertinent negative responses have been documented in the HPI. ROS Other: All systems not noted in ROS Statement are negative. Past Medical History Additional Past Medical History / Comment(s): anxiety,depression, irritable bowel, ptsd, crohn's disease. vertigo. hypoglycemia History of Any Multi-Drug Resistant Organisms: None Reported Past Surgical History: No Surgical Hx Reported Additional Past Surgical History / Comment(s): laprascopy, Past Psychological History: Anxiety, Depression, Panic Disorder, PTSD Smoking Status: Never smoker Past Alcohol Use History: None Reported Past Drug Use History: None Reported General Exam - General Exam Comments Initial Comments: PHYSICAL EXAM: General Impression: Alert and oriented x3, not in acute distress HEENT: Normocephalic atraumatic, extra-ocular movements intact, pupils equal and reactive to light bilaterally, mucous membranes moist. Cardiovascular: Heart regular rate and rhythm, S1&S2 audible, no murmurs, rubs or gallops Chest: Lungs clear to auscultation bilaterally, no rhonchi, no wheeze, no rales Abdomen: Bowel sounds present, abdomen soft, non-tender, non-distended, no organomegaly Musculoskeletal: Pulses present and equal in all extremities, no peripheral edema Motor: Power 5/5 bilaterally, no focal deficits noted Neurological: CN II-XII grossly intact, no focal motor or sensory deficits noted Skin: Intact with no visualized rashes Limitations: no limitations Course Vital Signs 07/07/18 07/07/18 13:22 14:56 Temperature 98.5 F Pulse Rate 102 H 95 Respiratory 16 16 Rate Blood Pressure 183/100 179/95 O2 Sat by Pulse 99 98 Oximetry Medical Decision Making - Medical Decision Making ED course: 43-year-old female no significant past medical history presents with anxiety reaction. She is well-appearing at this time no acute distress. She does appear anxious and tearful. Vital signs upon arrival shows heart rate of 102, rest of vital signs within normal limits. Patient has a blood pressure 183. 100. She specifically lisinopril however is not taken due to financial reasons. EKG is obtained with no acute processes. Patient given Ativan by mouth and IM Toradol for request to alleviate some of her back symptoms. Patient reevaluated found to be stable medical condition. She feels she feels a lot better. Patient has a primary care physician. She is told to follow up with that person. Refill provided for lisinopril per patient request. Patient's critical presentation is consistent with anxiety reaction. Patient denies any chest pain at this time. EKG Interpretation: A 12 lead EKG was obtained. It was interpreted by myself and attending physician. There is a P wave before every QRS complex. Rate is 102. Rhythm is sinus tachycardia, IA interval 124, care is 84, QTC 479. QT is not prolonged. No ST segment depression or elevation.. Overall, this EKG is unremarkable Disposition Clinical Impression: Anxiety reaction Disposition: HOME SELF-CARE Condition: Good Instructions: Anxiety (ED) Prescriptions: Lisinopril [Prinivil] 20 mg PO DAILY #30 tablet Is patient prescribed a controlled substance at d/c from ED?: No Referrals: None,Stated [Primary Care Provider] - 1-2 days Time of Disposition: 15:48
[2018-07-07 16:26] VITALS: BP 164/70; PULSE 79; TEMP 97.9
== END 2018-07-07 16:24 | disposition home or self-care (01) ==
LOC: EC 13:19
DX: F41.0 Panic disorder [episodic paroxysmal anxiety] (principal); R07.89 Other chest pain; K58.9 Irritable bowel syndrome, unspecified; F32.9 Major depressive disorder, single episode, unspecified; F43.11 Post-traumatic stress disorder, acute; Z87.19 Personal history of other diseases of the digestive system; Z79.899 Other long term (current) drug therapy; Z88.0 Allergy status to penicillin; Z88.8 Allergy status to other drugs, medicaments and biological substances
CPT/HCPCS: 93005; 99285; 96372; J1885

== ENCOUNTER 2018-08-24 00:21 | Emergency (ER) | payer OTHER ==
[2018-08-24] MEDS ORDERED: SODIUM CHLORIDE 0.9% 1,000 ML IV ONE ×2 (00:48)
[2018-08-24 01:11] LABS: Basophils % (A) 1 %; Eosinophils # (A) 0.1 k/uL (0-0.7); Eosinophils % (A) 1 %; HCT 38.6 % (34.0-46.0); HGB 12.9 gm/dL (11.4-16.0); Lymphocytes # (A) 3.3 k/uL (1.0-4.8); Lymphocytes % (A) 36 %; MCH 30.5 pg (25.0-35.0); MCHC 33.3 g/dL (31.0-37.0); MCV 91.5 fL (80.0-100.0); Mean Platelet Volume 6.7; Monocytes # (A) 0.7 k/uL (0-1.0); Monocytes % (A) 8 %; Neutrophils # (A) 4.8 k/uL (1.3-7.7); Neutrophils % (A) 52 %; Platelet Count 283 k/uL (150-450); RBC 4.22 m/uL (3.80-5.40); WBC 9.1 k/uL (3.8-10.6)
[2018-08-24 01:16] LABS: ALT 86 U/L (9-52); AST 157 U/L (14-36); Albumin 3.6 g/dL (3.5-5.0); Alkaline Phosphatase 53 U/L (38-126); Anion Gap 5 mmol/L; Blood Urea Nitrogen 15 mg/dL (7-17); Calcium 8.6 mg/dL (8.4-10.2); Carbon Dioxide 26 mmol/L (22-30); Chloride 107 mmol/L (98-107); Glucose 74 mg/dL (74-99); Potassium 3.8 mmol/L (3.5-5.1); Sodium 138 mmol/L (137-145); Total Bilirubin 0.6 mg/dL (0.2-1.3); Total Protein 7.1 g/dL (6.3-8.2)
[2018-08-24 01:21] LABS: Partial Thromboplastin Time 24.3 sec (22.0-30.0); Prothrombin Time 9.8 sec (9.0-12.0)
[2018-08-24 01:22] LABS: Appearance,Urine Clear (Clear); Bilirubin,Urine Negative (Negative); Blood,Urine Large (Negative); Color,Urine Yellow; Glucose,Urine (UA) Negative (Negative); Ketones,Urine Negative (Negative); Leukocyte Esterase,Urine Negative (Negative); Mucus,Urine Rare /hpf; Nitrite,Urine Negative (Negative); PH, Urine 6.5 (5.0-8.0); Protein,Urine Trace (Negative); RBC,Urine >182 /hpf (0-5); Specific Gravity,Urine 1.024 (1.001-1.035); Squamous Epithelial Cell,Urine 2 /hpf (0-4); WBC,Urine 5 /hpf (0-5)
--- NOTE | 2018-08-24 01:43 | ED ---
Female Urogenital HPI - General Source: patient, RN notes reviewed, old records reviewed Mode of arrival: wheelchair Limitations: no limitations - History of Present Illness Last Menstrual Period: 08/23/18 <Eugenia Adames - Last Filed: 08/24/18 02:39> <Ladi Gomes - Last Filed: 08/24/18 04:23> - General Chief complaint: Vaginal Bleeding Stated complaint: Vaginal bleeding, weak Time Seen by Provider: 08/24/18 00:31 - History of Present Illness Initial comments: Patient is a 43-year-old female who presents emergency Department today with chief complaint of increased vaginal bleeding. Patient reports she started having heavy vaginal bleeding today. She states she just feels generally weak and ill. She states that she also complains of vertigo like dizziness. Patient states that she has been using multiple tampons. Patient reports that she has not seen HEM INSPECTOR at this time. Patient states that she's had some lower abdominal pain and cramping. She denies any fevers or chills. Normal urination or bowel habits. She reports history of IBS. (Eugenia Adames) - Related Data Home Medications Medication Instructions Recorded Confirmed Loperamide [Imodium] 2 mg PO TID 12/22/15 07/07/18 Dextroamphetamine/Amphetamine 30 mg PO BID 02/03/18 07/07/18 [Adderall] Escitalopram [Lexapro] 20 mg PO DAILY 02/03/18 07/07/18 clonazePAM [KlonoPIN] 0.5 mg PO BID 02/03/18 07/07/18 traZODone HCL 150 mg PO HS 02/03/18 07/07/18 Lisinopril [Prinivil] 20 mg PO DAILY 07/07/18 07/07/18 Meclizine [Antivert] 25 mg PO TID PRN 07/07/18 07/07/18 Previous Rx's Medication Instructions Recorded Ondansetron Odt [Zofran ODT] 4 mg PO Q8HR PRN #30 tab 07/01/18 Lisinopril [Prinivil] 20 mg PO DAILY #30 tablet 07/07/18 Ibuprofen 600 mg PO TID #20 tablet 08/24/18 Orphenadrine [Norflex] 100 mg PO ONCE #10 tablet.er 08/24/18 Allergies Allergy/AdvReac Type Severity Reaction Status Date / Time Penicillins Allergy Unknown Verified 08/24/18 00:26 prochlorperazine edisylate Allergy Unknown Verified 08/24/18 00:26 [From Compazine] prochlorperazine maleate Allergy Unknown Verified 08/24/18 00:26 [From Compazine] Review of Systems ROS Other: All systems not noted in ROS Statement are negative. <Eugenia Adames - Last Filed: 08/24/18 02:39> ROS Other: All systems not noted in ROS Statement are negative. <Ladi Gomes - Last Filed: 08/24/18 04:23> ROS Statement: Those systems with pertinent positive or pertinent negative responses have been documented in the HPI. Past Medical History Additional Past Medical History / Comment(s): anxiety,depression, irritable bowel, ptsd, crohn's disease. vertigo. hypoglycemia History of Any Multi-Drug Resistant Organisms: None Reported Past Surgical History: No Surgical Hx Reported Additional Past Surgical History / Comment(s): laprascopy, Past Psychological History: Anxiety, Depression, Panic Disorder, PTSD Smoking Status: Never smoker Past Alcohol Use History: None Reported Past Drug Use History: None Reported <Eugenia Adames - Last Filed: 08/24/18 02:39> General Exam Limitations: no limitations General appearance: alert, in no apparent distress Head exam: Present: atraumatic, normocephalic, normal inspection Eye exam: Present: normal appearance, PERRL, EOMI. Absent: scleral icterus, conjunctival injection, periorbital swelling ENT exam: Present: normal exam, mucous membranes moist Neck exam: Present: normal inspection. Absent: tenderness, meningismus, lymphadenopathy Respiratory exam: Present: normal lung sounds bilaterally Cardiovascular Exam: Present: regular rate, normal rhythm, normal heart sounds. Absent: systolic murmur, diastolic murmur, rubs, gallop, clicks GI/Abdominal exam: Present: soft, normal bowel sounds. Absent: distended, tenderness, guarding, rebound, rigid External exam: Absent: normal external exam Speculum exam: Present: vaginal bleeding. Absent: normal speculum exam, erythema, vaginal discharge By manual exam: Present: normal by manual exam. Absent: cervical motion tenderness, adnexal tenderness Extremities exam: Present: normal inspection, full ROM, normal capillary refill. Absent: tenderness, pedal edema, joint swelling, calf tenderness Back exam: Present: normal inspection Neurological exam: Present: alert, oriented X3, CN II-XII intact Psychiatric exam: Present: normal affect, normal mood Skin exam: Present: warm, dry, intact, normal color. Absent: rash <Eugenia Adames - Last Filed: 08/24/18 02:39> <Ladi Gomes - Last Filed: 08/24/18 04:23> - General Exam Comments Initial Comments: 43-year-old female who presents emergency Department today. Patient appears in no acute distress. (Eugenia Adames) Vital Signs 08/24/18 08/24/18 00:23 03:21 Temperature 98.4 F 98.3 F Pulse Rate 114 H 97 Respiratory 18 16 Rate Blood Pressure 164/94 148/82 O2 Sat by Pulse 92 L 97 Oximetry Medical Decision Making - Lab Data Result diagrams: 08/24/18 00:58 08/24/18 00:58 - Radiology Data Radiology results: report reviewed <Eugenia dAames - Last Filed: 08/24/18 02:39> - Lab Data Result diagrams: 08/24/18 00:58 08/24/18 00:58 <Ladi Gomes - Last Filed: 08/24/18 04:23> - Medical Decision Making 43-year-old female presents returns a with onset of heavy vaginal bleeding times one day. She reports she feels more weak and lightheaded. Patient was given IV fluids labwork obtained. She did have significant bleeding on pelvic exam. No cervical motion tenderness. No palpable masses. Abdomen is soft and nontender. Patient's EKG was reviewed and negative for any acute process. Her hemoglobin is stable at 12.9. Transfer attacks. Patient states that she did believe that she could possibly be and having this abnormal bleeding due to a miscarriage. Her hCG level was negative at this time. (Eugenia Adames ) I was available for consultation in the emergency department. The history and physical exam were done by the midlevel provider. I was consulted for this patient's care. I reviewed the case with the midlevel provider and based on their presentation of the patient, I agree with the assessment, medical decision making and plan of care as documented. (Ladi Gomes) - Lab Data Lab Results 08/24/18 08/24/18 08/24/18 Range/Units 00:58 00:58 00:58 WBC 9.1 (3.8-10.6) k/uL RBC 4.22 (3.80-5.40) m/uL Hgb 12.9 (11.4-16.0) gm/dL Hct 38.6 (34.0-46.0) % MCV 91.5 (80.0-100.0) fL MCH 30.5 (25.0-35.0) pg MCHC 33.3 (31.0-37.0) g/dL RDW 13.0 (11.5-15.5) % Plt Count 283 (150-450) k/uL Neutrophils % 52 % Lymphocytes % 36 % Monocytes % 8 % Eosinophils % 1 % Basophils % 1 % Neutrophils # 4.8 (1.3-7.7) k/uL Lymphocytes # 3.3 (1.0-4.8) k/uL Monocytes # 0.7 (0-1.0) k/uL Eosinophils # 0.1 (0-0.7) k/uL Basophils # 0.0 (0-0.2) k/uL PT 9.8 (9.0-12.0) sec INR 1.0 (<1.2) APTT 24.3 (22.0-30.0) sec Sodium 138 (137-145) mmol/L Potassium 3.8 (3.5-5.1) mmol/L Chloride 107 (98-107) mmol/L Carbon Dioxide 26 (22-30) mmol/L Anion Gap 5 mmol/L BUN 15 (7-17) mg/dL Creatinine 0.62 (0.52-1.04) mg/dL Est GFR (CKD-EPI)AfAm >90 (>60 ml/min/1.73 sqM) Est GFR (CKD-EPI)NonAf >90 (>60 ml/min/1.73 sqM) Glucose 74 (74-99) mg/dL Calcium 8.6 (8.4-10.2) mg/dL Total Bilirubin 0.6 (0.2-1.3) mg/dL AST 157 H (14-36) U/L ALT 86 H (9-52) U/L Alkaline Phosphatase 53 (38-126) U/L Total Protein 7.1 (6.3-8.2) g/dL Albumin 3.6 (3.5-5.0) g/dL Urine Color Urine Appearance (Clear) Urine pH (5.0-8.0) Ur Specific [place] (1.001-1.035) Urine Protein (Negative) Urine Glucose (UA) (Negative) Urine Ketones (Negative) Urine Blood (Negative) Urine Nitrite (Negative) Urine Bilirubin (Negative) Urine Urobilinogen (<2.0) mg/dL Ur Leukocyte Esterase (Negative) Urine RBC (0-5) /hpf Urine WBC (0-5) /hpf Ur Squamous Epith Cells (0-4) /hpf Urine Mucus (None) /hpf Urine HCG, Qual (Not Detectd) Trichomonas Ag (Rapid) (Negative) Blood Type Blood Type Confirm Blood Type Recheck Antibody Screen Spec Expiration Date 08/24/18 08/24/18 08/24/18 Range/Units 00:58 01:06 01:06 WBC (3.8-10.6) k/uL RBC (3.80-5.40) m/uL Hgb (11.4-16.0) gm/dL Hct (34.0-46.0) % MCV (80.0-100.0) fL MCH (25.0-35.0) pg MCHC (31.0-37.0) g/dL RDW (11.5-15.5) % Plt Count (150-450) k/uL Neutrophils % % Lymphocytes % % Monocytes % % Eosinophils % % Basophils % % Neutrophils # (1.3-7.7) k/uL Lymphocytes # (1.0-4.8) k/uL Monocytes # (0-1.0) k/uL Eosinophils # (0-0.7) k/uL Basophils # (0-0.2) k/uL PT (9.0-12.0) sec INR (<1.2) APTT (22.0-30.0) sec Sodium (137-145) mmol/L Potassium (3.5-5.1) mmol/L Chloride (98-107) mmol/L Carbon Dioxide (22-30) mmol/L Anion Gap mmol/L BUN (7-17) mg/dL Creatinine (0.52-1.04) mg/dL Est GFR (CKD-EPI)AfAm (>60 ml/min/1.73 sqM) Est GFR (CKD-EPI)NonAf (>60 ml/min/1.73 sqM) Glucose (74-99) mg/dL Calcium (8.4-10.2) mg/dL Total Bilirubin (0.2-1.3) mg/dL AST (14-36) U/L ALT (9-52) U/L Alkaline Phosphatase (38-126) U/L Total Protein (6.3-8.2) g/dL Albumin (3.5-5.0) g/dL Urine Color Yellow Urine Appearance Clear (Clear) Urine pH 6.5 (5.0-8.0) Ur Specific [place] 1.024 (1.001-1.035) Urine Protein Trace H (Negative) Urine Glucose (UA) Negative (Negative) Urine Ketones Negative (Negative) Urine Blood Large H (Negative) Urine Nitrite Negative (Negative) Urine Bilirubin Negative (Negative) Urine Urobilinogen 6.0 (<2.0) mg/dL Ur Leukocyte Esterase Negative (Negative) Urine RBC >182 H (0-5) /hpf Urine WBC 5 (0-5) /hpf Ur Squamous Epith Cells 2 (0-4) /hpf Urine Mucus Rare H (None) /hpf Urine HCG, Qual Not Detected (Not Detectd) Trichomonas Ag (Rapid) (Negative) Blood Type A Positive Blood Type Confirm Blood Type Recheck CABO Indicated Antibody Screen NEGATIVE Spec Expiration Date 08/27/2018235708/24/18 08/24/18 Range/Units 01:14 01:48 WBC (3.8-10.6) k/uL RBC (3.80-5.40) m/uL Hgb (11.4-16.0) gm/dL Hct (34.0-46.0) % MCV (80.0-100.0) fL MCH (25.0-35.0) pg MCHC (31.0-37.0) g/dL RDW (11.5-15.5) % Plt Count (150-450) k/uL Neutrophils % % Lymphocytes % % Monocytes % % Eosinophils % % Basophils % % Neutrophils # (1.3-7.7) k/uL Lymphocytes # (1.0-4.8) k/uL Monocytes # (0-1.0) k/uL Eosinophils # (0-0.7) k/uL Basophils # (0-0.2) k/uL PT (9.0-12.0) sec INR (<1.2) APTT (22.0-30.0) sec Sodium (137-145) mmol/L Potassium (3.5-5.1) mmol/L Chloride (98-107) mmol/L Carbon Dioxide (22-30) mmol/L Anion Gap mmol/L BUN (7-17) mg/dL Creatinine (0.52-1.04) mg/dL Est GFR (CKD-EPI)AfAm (>60 ml/min/1.73 sqM) Est GFR (CKD-EPI)NonAf (>60 ml/min/1.73 sqM) Glucose (74-99) mg/dL Calcium (8.4-10.2) mg/dL Total Bilirubin (0.2-1.3) mg/dL AST (14-36) U/L ALT (9-52) U/L Alkaline Phosphatase (38-126) U/L Total Protein (6.3-8.2) g/dL Albumin (3.5-5.0) g/dL Urine Color Urine Appearance (Clear) Urine pH (5.0-8.0) Ur Specific [place] (1.001-1.035) Urine Protein (Negative) Urine Glucose (UA) (Negative) Urine Ketones (Negative) Urine Blood (Negative) Urine Nitrite (Negative) Urine Bilirubin (Negative) Urine Urobilinogen (<2.0) mg/dL Ur Leukocyte Esterase (Negative) Urine RBC (0-5) /hpf Urine WBC (0-5) /hpf Ur Squamous Epith Cells (0-4) /hpf Urine Mucus (None) /hpf Urine HCG, Qual (Not Detectd) Trichomonas Ag (Rapid) Negative (Negative) Blood Type Blood Type Confirm A Positive Blood Type Recheck Antibody Screen Spec Expiration Date 08/24/18 02:42 EKG performed at 10 2 in the morning shows a sinus rhythm and normal EKG. Ventricular rate of 85 bpm. IA interval is 148 ms. QRS ration 88ms. QT QTc is 368/437 ms. (Eugenia Adames) - Radiology Data Unremarkable appearnace to the uterus. No free fluid noted. Left and Right ovaries are obscured by bowel gas (Eugenia Adames) Disposition Is patient prescribed a controlled substance at d/c from ED?: No Time of Disposition: 02:49 <Eugenia Adames - Last Filed: 08/24/18 02:39> <Ladi Gomes - Last Filed: 08/24/18 04:23> Clinical Impression: Abnormal uterine bleeding Disposition: HOME SELF-CARE Condition: Good Instructions: Menstruation (ED) Additional Instructions: Patient is advised to follow-up with HEM INSPECTOR. Take the medication as prescribed. Return to emergency department if any alarming signs or symptoms occur. Prescriptions: Ibuprofen 600 mg PO TID #20 tablet Orphenadrine [Norflex] 100 mg PO ONCE #10 tablet.er Referrals: None,Stated [Primary Care Provider] - 1-2 days Zoë Ha MD [STAFF PHYSICIAN] - 1-2 days
--- NOTE | 2018-08-24 02:15 | US ---
EXAM: US Pelvis, Transvaginal CLINICAL HISTORY: Pain TECHNIQUE: Real-time transvaginal pelvic ultrasound (complete) with image documentation. Transvaginal imaging was used for better evaluation of the endometrium and adnexa. COMPARISON: No relevant prior studies available. FINDINGS: Uterus/cervix: Uterus measures 8.8 x 4.0 5.2 cm. Normal endometrial stripe thickness of 3.8 mm. No myometrial mass. Right ovary: Obscured by bowel gas Left ovary: Obscured by bowel gas Free fluid: No free fluid. IMPRESSION: Unremarkable appearance to the uterus. No free fluid noted. Left and right ovaries are obscured by bowel gas
[2018-08-24] MEDS ORDERED: KETOROLAC 30 MG/ML 1 ML VIAL IVP STA (02:47)
[2018-08-24] MEDS ORDERED: ORPHENADRINE 30 MG/ML 2 ML VIAL IVP STA (02:47)
[2018-08-24 03:21] VITALS: BP 148/82; PULSE 97; RESP 16; TEMP 98.3
== END 2018-08-24 03:21 | disposition home or self-care (01) ==
LOC: EC 00:21
DX: N93.8 Other specified abnormal uterine and vaginal bleeding (principal); R53.1 Weakness; R10.30 Lower abdominal pain, unspecified; R42 Dizziness and giddiness; K58.9 Irritable bowel syndrome, unspecified; F41.9 Anxiety disorder, unspecified; F32.9 Major depressive disorder, single episode, unspecified; F43.10 Post-traumatic stress disorder, unspecified; Z87.19 Personal history of other diseases of the digestive system; Z79.899 Other long term (current) drug therapy; Z88.0 Allergy status to penicillin; Z88.8 Allergy status to other drugs, medicaments and biological substances
CPT/HCPCS: 36415; 93005; 86900; 86901; 80053; 85025; 85610; 85730; 86850; 81001; 81025; 87808; 87491; 87591; 87070; 87205; 76830; 99285; 96374; 96375; 96361; J2360; J1885

== ENCOUNTER 2018-11-20 18:55 | Emergency (ER) | payer OTHER ==
[2018-11-21 00:45] LABS: Appearance,Urine Clear (Clear); Bilirubin,Urine Negative (Negative); Blood,Urine Negative (Negative); Color,Urine Yellow; Glucose,Urine (UA) Negative (Negative); Ketones,Urine Trace (Negative); Leukocyte Esterase,Urine Negative (Negative); Mucus,Urine Rare /hpf; Nitrite,Urine Negative (Negative); PH, Urine 6.5 (5.0-8.0); Protein,Urine Negative (Negative); RBC,Urine <1 /hpf (0-5); Specific Gravity,Urine 1.008 (1.001-1.035); Squamous Epithelial Cell,Urine 2 /hpf (0-4); Urobilinogen,Urine <2.0 mg/dL (<2.0); WBC,Urine 1 /hpf (0-5)
[2018-11-21 00:46] LABS: Amphetamine Screen,Urine Detected (NotDetected); Barbiturate Screen,Urine Not Detected (NotDetected); Benzodiazepines Screen,Urine Not Detected (NotDetected); Cocaine Screen,Urine Not Detected (NotDetected); Methadone Screen, Urine Not Detected (NotDetected); Opiate Screen,Urine Not Detected (NotDetected); Oxycodone Screen, Urine Not Detected (NotDetected); Phencyclidine Screen,Urine Not Detected (NotDetected); Tricyclic Antidepressant,Urine Not Detected (NotDetected); Urn Cannabinoid Scrn Not Detected (NotDetected)
[2018-11-21 02:31] LABS: Basophils # (A) 0.1 k/uL (0-0.2); Basophils % (A) 1 %; Eosinophils # (A) 0.1 k/uL (0-0.7); Eosinophils % (A) 1 %; HCT 41.7 % (34.0-46.0); Lymphocytes # (A) 2.8 k/uL (1.0-4.8); Lymphocytes % (A) 44 %; MCH 30.3 pg (25.0-35.0); MCHC 33.7 g/dL (31.0-37.0); MCV 89.9 fL (80.0-100.0); Mean Platelet Volume 6.4; Monocytes # (A) 0.4 k/uL (0-1.0); Monocytes % (A) 6 %; Neutrophils # (A) 2.9 k/uL (1.3-7.7); Neutrophils % (A) 45 %; Platelet Count 316 k/uL (150-450); RBC 4.64 m/uL (3.80-5.40); RDW 13.3 % (11.5-15.5); WBC 6.5 k/uL (3.8-10.6)
[2018-11-21 12:08] LABS: ALT 34 U/L (9-52); AST 26 U/L (14-36); Albumin 4.6 g/dL (3.5-5.0); Alkaline Phosphatase 73 U/L (38-126); Anion Gap 13 mmol/L; Blood Urea Nitrogen 11 mg/dL (7-17); Calcium 9.8 mg/dL (8.4-10.2); Carbon Dioxide 20 mmol/L (22-30); Chloride 109 mmol/L (98-107); Glucose 113 mg/dL (74-99); Potassium 2.9 mmol/L (3.5-5.1); Sodium 142 mmol/L (137-145); Total Bilirubin 1.4 mg/dL (0.2-1.3); Total Protein 8.4 g/dL (6.3-8.2)
== END 2018-11-20 21:05 | disposition left against medical advice (07) ==
LOC: EC 18:55
DX: R06.4 Hyperventilation (principal); F41.9 Anxiety disorder, unspecified; R06.82 Tachypnea, not elsewhere classified; F17.200 Nicotine dependence, unspecified, uncomplicated; Z53.29 Procedure and treatment not carried out because of patient's decision for other reasons; Z88.0 Allergy status to penicillin; Z88.8 Allergy status to other drugs, medicaments and biological substances
CPT/HCPCS: 36415; 80053; 80306; 81003; 85025; 99285

== ENCOUNTER 2019-06-06 10:19 | Emergency (ER) | payer OTHER ==
[2019-06-06 10:35] VITALS: RESP 18
[2019-06-06] MEDS ORDERED: ONDANSETRON 4 MG/2 ML VIAL IVP STA (11:13)
[2019-06-06] MEDS ORDERED: SODIUM CHLORIDE 0.9% 1,000 ML IV STA (11:13)
[2019-06-06] MEDS ORDERED: KETOROLAC 30 MG/ML 1 ML VIAL IVP STA (11:13)
--- NOTE | 2019-06-06 11:20 | ED ---
Abdominal Pain HPI - General Chief Complaint: Abdominal Pain Stated Complaint: UTI Time Seen by Provider: 06/06/19 10:39 Source: patient Mode of arrival: ambulatory Limitations: no limitations - History of Present Illness Initial Comments: Patient is a 44-year-old female presenting to the emergency Department with complaints of lower abdominal pain, right-sided flank pain, vaginal discharge 4 days. Patient admits to having history of kidney stones. Patient states pain started in the right flank area and has progressed down to the right groin area. Patient admits to urinary frequency, pain, pressure, and cramping. Patient states her boyfriend admitted to testing positive for Trichomonas, so she is worried that she has that. Patient has not been tested for this before. Patient has a fear of vaginal exams due to history of right. Patient denies fever, chills, vomiting, diarrhea. No recent changes in medication. No other complaints at this time. - Related Data Home Medications Medication Instructions Recorded Confirmed Loperamide [Imodium] 2 mg PO TID PRN 12/22/15 06/06/19 Dextroamphetamine/Amphetamine 30 mg PO BID 02/03/18 06/06/19 [Adderall] clonazePAM [KlonoPIN] 0.5 mg PO BID 02/03/18 06/06/19 traZODone HCL 150 mg PO HS 02/03/18 06/06/19 Lisinopril [Prinivil] 20 mg PO DAILY 07/07/18 06/06/19 Meclizine [Antivert] 25 mg PO TID PRN 07/07/18 06/06/19 Escitalopram Oxalate [Lexapro] 20 mg PO DAILY 06/06/19 06/06/19 lamoTRIgine [LaMICtal] 25 mg PO BID 06/06/19 06/06/19 Previous Rx's Medication Instructions Recorded Ibuprofen 600 mg PO TID #20 tablet 08/24/18 Cephalexin [Keflex] 500 mg PO BID 14 Days #28 cap 06/06/19 Fluconazole [Diflucan] 150 mg PO ONCE #1 tab 06/06/19 Allergies Allergy/AdvReac Type Severity Reaction Status Date / Time latex Allergy Unknown Verified 06/06/19 11:01 Penicillins Allergy Unknown Verified 06/06/19 11:01 prochlorperazine edisylate Allergy Unknown Verified 06/06/19 11:01 [From Compazine] prochlorperazine maleate Allergy Unknown Verified 06/06/19 11:01 [From Compazine] Review of Systems ROS Statement: Those systems with pertinent positive or pertinent negative responses have been documented in the HPI. ROS Other: All systems not noted in ROS Statement are negative. Past Medical History Additional Past Medical History / Comment(s): anxiety,depression, irritable bowel, ptsd, crohn's disease. vertigo. hypoglycemia History of Any Multi-Drug Resistant Organisms: None Reported Past Surgical History: No Surgical Hx Reported Additional Past Surgical History / Comment(s): laprascopy, Past Psychological History: Anxiety, Depression, Panic Disorder, PTSD Smoking Status: Never smoker Past Alcohol Use History: None Reported Past Drug Use History: None Reported General Exam - General Exam Comments Initial Comments: GENERAL: Well-appearing, well-nourished and in no acute distress. HEAD: Atraumatic, normocephalic. EYES: Pupils equal round and reactive to light, extraocular movements intact, sclera anicteric, conjunctiva are normal. ENT: TMs normal, nares patent, oropharynx clear without exudates. Moist mucous membranes. NECK: Normal range of motion, supple without lymphadenopathy or JVD. LUNGS: Breath sounds clear to auscultation bilaterally and equal. No wheezes rales or rhonchi. HEART: Regular rate and rhythm without murmurs, rubs or gallops. ABDOMEN: Mild tenderness to the right lower quadrant, right flank. Soft, nontender, normoactive bowel sounds. No guarding, no rebound. No masses appreciated. : Deferred, patient declined at this time. EXTREMITIES: Normal range of motion, no pitting or edema. No clubbing or cyanosis. NEUROLOGICAL: Cranial nerves II through XII grossly intact. Normal speech, normal gait. PSYCH: Normal mood, normal affect. SKIN: Warm, Dry, normal turgor, no rashes or lesions noted. Limitations: no limitations Course Vital Signs 06/06/19 06/06/19 06/06/19 10:30 14:00 14:56 Temperature 98.2 F 98.0 F 97.8 F Pulse Rate 88 70 70 Respiratory 18 18 18 Rate Blood Pressure 127/93 132/79 124/80 O2 Sat by Pulse 98 99 97 Oximetry Medical Decision Making - Medical Decision Making Patient is a 44-year-old female presenting with right-sided flank pain, dysuria 4 days. Upon arrival, vital signs stable, afebrile. On exam patient has right-sided tenderness and right lower quadrant pain. CBC shows 17.2 white count with neutrophils 14.7. BMP is within normal limits. UA shows large amount of blood, greater than 182 WBCs. Moderate amount of bacteria. Urine will be cultured. CT was obtained to rule out infected stone. Tiny nonobstructive bilateral renal calculi. No hydronephrosis. Patient will be treated for pyelonephritis. Patient was given fluids, Zofran, Toradol which did improve her pain. Patient was also given 1 g of Rocephin. Patient will continue outpatient with Keflex for 14 days. Patient will follow up with PCP. Return parameters were discussed with the patient she verbalized understanding. Case discussed with Dr. Munoz. - Lab Data Result diagrams: 06/06/19 11:55 06/06/19 11:55 Lab Results 06/06/19 06/06/19 06/06/19 Range/Units 11:55 11:55 11:55 WBC 17.2 H (3.8-10.6) k/uL RBC 4.88 (3.80-5.40) m/uL Hgb 15.0 (11.4-16.0) gm/dL Hct 45.5 (34.0-46.0) % MCV 93.3 (80.0-100.0) fL MCH 30.7 (25.0-35.0) pg MCHC 32.9 (31.0-37.0) g/dL RDW 13.5 (11.5-15.5) % Plt Count 285 (150-450) k/uL Neutrophils % 85 % Lymphocytes % 9 % Monocytes % 4 % Eosinophils % 1 % Basophils % 0 % Neutrophils # 14.7 H (1.3-7.7) k/uL Lymphocytes # 1.6 (1.0-4.8) k/uL Monocytes # 0.7 (0-1.0) k/uL Eosinophils # 0.1 (0-0.7) k/uL Basophils # 0.0 (0-0.2) k/uL Sodium 140 (137-145) mmol/L Potassium 4.1 (3.5-5.1) mmol/L Chloride 106 (98-107) mmol/L Carbon Dioxide 26 (22-30) mmol/L Anion Gap 8 mmol/L BUN 11 (7-17) mg/dL Creatinine 0.66 (0.52-1.04) mg/dL Est GFR (CKD-EPI)AfAm >90 (>60 ml/min/1.73 sqM) Est GFR (CKD-EPI)NonAf >90 (>60 ml/min/1.73 sqM) Glucose 89 (74-99) mg/dL Calcium 9.1 (8.4-10.2) mg/dL Urine Color Urine Appearance (Clear) Urine pH (5.0-8.0) Ur Specific [place] (1.001-1.035) Urine Protein (Negative) Urine Glucose (UA) (Negative) Urine Ketones (Negative) Urine Blood (Negative) Urine Nitrite (Negative) Urine Bilirubin (Negative) Urine Urobilinogen (<2.0) mg/dL Ur Leukocyte Esterase (Negative) Urine RBC (0-5) /hpf Urine WBC (0-5) /hpf Urine WBC Clumps (None) /hpf Ur Squamous Epith Cells (0-4) /hpf Urine Bacteria (None) /hpf Urine HCG, Qual Not Detected (Not Detectd) 06/06/19 Range/Units 11:55 WBC (3.8-10.6) k/uL RBC (3.80-5.40) m/uL Hgb (11.4-16.0) gm/dL Hct (34.0-46.0) % MCV (80.0-100.0) fL MCH (25.0-35.0) pg MCHC (31.0-37.0) g/dL RDW (11.5-15.5) % Plt Count (150-450) k/uL Neutrophils % % Lymphocytes % % Monocytes % % Eosinophils % % Basophils % % Neutrophils # (1.3-7.7) k/uL Lymphocytes # (1.0-4.8) k/uL Monocytes # (0-1.0) k/uL Eosinophils # (0-0.7) k/uL Basophils # (0-0.2) k/uL Sodium (137-145) mmol/L Potassium (3.5-5.1) mmol/L Chloride (98-107) mmol/L Carbon Dioxide (22-30) mmol/L Anion Gap mmol/L BUN (7-17) mg/dL Creatinine (0.52-1.04) mg/dL Est GFR (CKD-EPI)AfAm (>60 ml/min/1.73 sqM) Est GFR (CKD-EPI)NonAf (>60 ml/min/1.73 sqM) Glucose (74-99) mg/dL Calcium (8.4-10.2) mg/dL Urine Color Yellow Urine Appearance Turbid H (Clear) Urine pH 6.5 (5.0-8.0) Ur Specific [place] 1.020 (1.001-1.035) Urine Protein 1+ H (Negative) Urine Glucose (UA) Negative (Negative) Urine Ketones Negative (Negative) Urine Blood Large H (Negative) Urine Nitrite Negative (Negative) Urine Bilirubin Negative (Negative) Urine Urobilinogen <2.0 (<2.0) mg/dL Ur Leukocyte Esterase Large H (Negative) Urine RBC >182 H (0-5) /hpf Urine WBC >182 H (0-5) /hpf Urine WBC Clumps Many H (None) /hpf Ur Squamous Epith Cells 7 H (0-4) /hpf Urine Bacteria Moderate H (None) /hpf Urine HCG, Qual (Not Detectd) Disposition Clinical Impression: Abdominal pain, Pyelonephritis Disposition: HOME SELF-CARE Condition: Stable Instructions (If sedation given, give patient instructions): Kidney Infection (ED) Additional Instructions: Please return to the Emergency Department if symptoms worsen or any other concerns. Follow-up with PCP in 3-4 days. Prescriptions: Fluconazole [Diflucan] 150 mg PO ONCE #1 tab Cephalexin [Keflex] 500 mg PO BID 14 Days #28 cap Is patient prescribed a controlled substance at d/c from ED?: No Referrals: None,Stated [Primary Care Provider] - 1-2 days Ayala Phelps MD [REFERRING] - 1-2 days
[2019-06-06 12:10] LABS: Basophils % (A) 0 %; Eosinophils # (A) 0.1 k/uL (0-0.7); Eosinophils % (A) 1 %; HCT 45.5 % (34.0-46.0); Lymphocytes # (A) 1.6 k/uL (1.0-4.8); Lymphocytes % (A) 9 %; MCH 30.7 pg (25.0-35.0); MCHC 32.9 g/dL (31.0-37.0); MCV 93.3 fL (80.0-100.0); Mean Platelet Volume 6.9; Monocytes # (A) 0.7 k/uL (0-1.0); Monocytes % (A) 4 %; Neutrophils # (A) 14.7 k/uL (1.3-7.7); Neutrophils % (A) 85 %; Platelet Count 285 k/uL (150-450); RBC 4.88 m/uL (3.80-5.40); RDW 13.5 % (11.5-15.5); WBC 17.2 k/uL (3.8-10.6)
[2019-06-06 12:15] LABS: Appearance,Urine Turbid (Clear); Bacteria,Urine Moderate /hpf; Bilirubin,Urine Negative (Negative); Blood,Urine Large (Negative); Color,Urine Yellow; Glucose,Urine (UA) Negative (Negative); Ketones,Urine Negative (Negative); Leukocyte Esterase,Urine Large (Negative); Nitrite,Urine Negative (Negative); PH, Urine 6.5 (5.0-8.0); Protein,Urine 1+ (Negative); RBC,Urine >182 /hpf (0-5); Squamous Epithelial Cell,Urine 7 /hpf (0-4); Urobilinogen,Urine <2.0 mg/dL (<2.0); WBC,Urine >182 /hpf (0-5)
[2019-06-06 12:20] LABS: African American GFR (CKD) >90 (>60 ml/min/1.73 sqM); Anion Gap 8 mmol/L; Blood Urea Nitrogen 11 mg/dL (7-17); Calcium 9.1 mg/dL (8.4-10.2); Carbon Dioxide 26 mmol/L (22-30); Chloride 106 mmol/L (98-107); Glucose 89 mg/dL (74-99); Non-African American GFR(CKD) >90 (>60 ml/min/1.73 sqM); Potassium 4.1 mmol/L (3.5-5.1); Sodium 140 mmol/L (137-145)
--- NOTE | 2019-06-06 13:57 | CT ---
EXAMINATION TYPE: CT abdomen pelvis wo con DATE OF EXAM: 06/06/2019 COMPARISON: 06/17/2018 HISTORY: UTI, abdominal pain CT DLP: 548.9 mGycm Automated exposure control for dose reduction was used. TECHNIQUE: Helical acquisition of images was performed from the lung bases through the pelvis. FINDINGS: LUNG BASES: No significant abnormality is appreciated. LIVER/GB: Gallbladder surgically absent. Liver is normal in size. No intrahepatic lesion identified. PANCREAS: No significant abnormality is seen. SPLEEN: No significant abnormality is seen. ADRENALS: No significant abnormality is seen. KIDNEYS: Parenchymal calcification is seen in the superior pole on the right measuring up to 0.5 cm, similar to prior. Additional nonobstructive tiny calculus is seen in the inferior pole on the left me asuring less than 1 mm. No hydronephrosis. No perinephric stranding. FREE AIR: No free air is visualized RETROPERITONEAL ADENOPATHY: None visualized REPRODUCTIVE ORGANS: No significant abnormality is seen URINARY BLADDER: No significant abnormality is seen. PELVIC ADENOPATHY: None visualized. OSSEOUS STRUCTURES: Moderate severe facet arthropathy at T9-T10 and T10-11 causing spinal canal sten osis and right-sided neural foraminal stenosis. Mild degenerative changes are seen in the lumbar spin e. BOWEL: No significant abnormality is seen. OTHER: No significant abnormality is seen. IMPRESSION: TINY NONOBSTRUCTIVE BILATERAL RENAL CALCULI. NO HYDRONEPHROSIS. CHOLECYSTECTOMY. T9-10 AND T10-11 SPINAL CANAL STENOSIS MOST SEVERE AT T10-11. IF FOCAL NEUROLOGIC SYMPTOMS ARE PRESEN T, CONSIDER MRI OF THE THORACIC SPINE FOR FURTHER EVALUATION.
[2019-06-06 14:02] VITALS: PULSE 70
[2019-06-06] MEDS ORDERED: cefTRIAXone IN SWFI 1,000 MG/10 ML SYRINGE IVP STA (14:21)
[2019-06-06 14:57] VITALS: BP 124/80; TEMP 97.8
[2019-06-08 15:53] LABS: C. trachomatis,PCR Equivocal (Neg,Equiv); Chlamydia trachomatis Source Urine; N. gonorrhoeae,PCR Equivocal (Neg,Equiv); Neisseria Source Urine
== END 2019-06-06 14:56 | disposition home or self-care (01) ==
LOC: EC 10:19
DX: N20.0 Calculus of kidney (principal); F41.9 Anxiety disorder, unspecified; F32.9 Major depressive disorder, single episode, unspecified; F43.10 Post-traumatic stress disorder, unspecified; Z87.19 Personal history of other diseases of the digestive system; Z79.899 Other long term (current) drug therapy; Z91.040 Latex allergy status; Z88.0 Allergy status to penicillin; Z88.8 Allergy status to other drugs, medicaments and biological substances
CPT/HCPCS: 36415; 80048; 85025; 81001; 81025; 87491; 87591; 87086; 87077; 87186; 74176; 99284; 96374; 96375 ×2; 96361 ×2; J2405; J0696; J1885

== ENCOUNTER 2020-06-09 05:37 | Inpatient (IN) | payer BC, OTHER ==
[2020-06-09] MEDS ORDERED: ALBUTEROL NEBULIZED 2.5 MG/3 ML INHALATION STA (06:18)
--- NOTE | 2020-06-09 06:40 | ED ---
General Adult HPI - General Chief complaint: Upper Respiratory Infection Stated complaint: SOB, Cough Time Seen by Provider: 06/09/20 06:07 Source: patient, RN notes reviewed, old records reviewed Mode of arrival: ambulatory Limitations: no limitations - History of Present Illness Initial comments: Tabitha is a 45-year-old female who presents emergency room today with chief complaint of cough shortness of breath muscle aches and a headache for the past few days. She initially thought related to taking Macrobid for urinary tract infection. Patient states that she's had UTI symptoms with frequent urination the past week. She started on Macrobid at urgent care. Patient states that she's had a hard time catching her breath. - Related Data Home Medications Medication Instructions Recorded Confirmed Loperamide [Imodium] 2 mg PO TID PRN 12/22/15 06/06/19 Dextroamphetamine/Amphetamine 30 mg PO BID 02/03/18 06/06/19 [Adderall] clonazePAM [KlonoPIN] 0.5 mg PO BID 02/03/18 06/06/19 traZODone HCL 150 mg PO HS 02/03/18 06/06/19 Meclizine [Antivert] 25 mg PO TID PRN 07/07/18 06/06/19 lisinopriL [Prinivil] 20 mg PO DAILY 07/07/18 06/06/19 Escitalopram Oxalate [Lexapro] 20 mg PO DAILY 06/06/19 06/06/19 lamoTRIgine [LaMICtal] 25 mg PO BID 06/06/19 06/06/19 Previous Rx's Medication Instructions Recorded Ibuprofen 600 mg PO TID #20 tablet 08/24/18 Cephalexin [Keflex] 500 mg PO BID 14 Days #28 cap 06/06/19 Fluconazole [Diflucan] 150 mg PO ONCE #1 tab 06/06/19 Allergies Allergy/AdvReac Type Severity Reaction Status Date / Time latex Allergy Unknown Verified 06/09/20 05:45 Penicillins Allergy Unknown Verified 06/09/20 05:45 prochlorperazine edisylate Allergy Unknown Verified 06/09/20 05:45 [From Compazine] prochlorperazine maleate Allergy Unknown Verified 06/09/20 05:45 [From Compazine] Review of Systems ROS Statement: Those systems with pertinent positive or pertinent negative responses have been documented in the HPI. ROS Other: All systems not noted in ROS Statement are negative. Past Medical History Additional Past Medical History / Comment(s): anxiety,depression, irritable bowel, ptsd, crohn's disease. vertigo. hypoglycemia History of Any Multi-Drug Resistant Organisms: None Reported Past Surgical History: No Surgical Hx Reported Additional Past Surgical History / Comment(s): laprascopy, Past Psychological History: Anxiety, Depression, Panic Disorder, PTSD Smoking Status: Never smoker Past Alcohol Use History: None Reported Past Drug Use History: None Reported General Exam - General Exam Comments Initial Comments: 45-year-old female. Limitations: no limitations General appearance: alert, in no apparent distress Head exam: Present: atraumatic, normocephalic, normal inspection Eye exam: Present: normal appearance, PERRL, EOMI. Absent: scleral icterus, conjunctival injection, periorbital swelling ENT exam: Present: normal exam, mucous membranes moist Neck exam: Present: normal inspection. Absent: tenderness, meningismus, lymphadenopathy Respiratory exam: Present: normal lung sounds bilaterally. Absent: respiratory distress, wheezes, rales, rhonchi, stridor Cardiovascular Exam: Present: regular rate, normal rhythm, normal heart sounds. Absent: systolic murmur, diastolic murmur, rubs, gallop, clicks GI/Abdominal exam: Present: soft, normal bowel sounds. Absent: distended, tenderness, guarding, rebound, rigid Extremities exam: Present: normal inspection, full ROM, normal capillary refill. Absent: tenderness, pedal edema, joint swelling, calf tenderness Back exam: Present: normal inspection Neurological exam: Present: alert, oriented X3, CN II-XII intact Psychiatric exam: Present: normal affect, normal mood Skin exam: Present: warm, dry, intact, normal color. Absent: rash Course Vital Signs 06/09/20 06/09/20 06/09/20 05:42 06:05 06:50 Temperature 98.9 F Pulse Rate 101 H 94 Respiratory 20 18 Rate Blood Pressure 165/98 O2 Sat by Pulse 100 Oximetry 06/09/20 06:57 Temperature Pulse Rate 96 Respiratory Rate Blood Pressure O2 Sat by Pulse Oximetry EKG Findings - EKG Comments: EKG Findings:: EKG performed at 6:01 AM shows normal sinus rhythm possible left atrial enlargement. Prolonged QT. Abnormal EKG. Ventricular rate 94 bpm. Verbal 152 ms. Restriction 74 ms. QT QTc is 386/482 ms. Medical Decision Making - Medical Decision Making 35-year-old female presents to return today with shortness of breath dry cough stating she has difficulty breathing with lying down flat. She never had history of this before. She denies any significant chest pain at this time. Patient is given IV fluids labwork obtained. Chest x-ray showed small pleural effusions and central venous congestion. She denies any pleuritic chest pain at this time. Patient's BNP is mildly elevated 1000. She never had this history before. I discussed the case with Dr. Brandon who recommended admission. Discussed the case with sounds physician. - Lab Data Result diagrams: 06/09/20 07:48 06/09/20 07:48 Lab Results 06/09/20 06/09/20 06/09/20 Range/Units 06:34 07:48 07:48 WBC 11.3 H (3.8-10.6) k/uL RBC 4.70 (3.80-5.40) m/uL Hgb 14.3 (11.4-16.0) gm/dL Hct 43.4 (34.0-46.0) % MCV 92.3 (80.0-100.0) fL MCH 30.4 (25.0-35.0) pg MCHC 32.9 (31.0-37.0) g/dL RDW 13.4 (11.5-15.5) % Plt Count 286 (150-450) k/uL Neutrophils % 61 % Lymphocytes % 28 % Monocytes % 7 % Eosinophils % 2 % Basophils % 1 % Neutrophils # 6.9 (1.3-7.7) k/uL Lymphocytes # 3.1 (1.0-4.8) k/uL Monocytes # 0.7 (0-1.0) k/uL Eosinophils # 0.2 (0-0.7) k/uL Basophils # 0.1 (0-0.2) k/uL PT 10.1 (9.0-12.0) sec INR 1.0 (<1.2) APTT 24.7 (22.0-30.0) sec Sodium (137-145) mmol/L Potassium (3.5-5.1) mmol/L Chloride (98-107) mmol/L Carbon Dioxide (22-30) mmol/L Anion Gap mmol/L BUN (7-17) mg/dL Creatinine (0.52-1.04) mg/dL Est GFR (CKD-EPI)AfAm (>60 ml/min/1.73 sqM) Est GFR (CKD-EPI)NonAf (>60 ml/min/1.73 sqM) Glucose (74-99) mg/dL Calcium (8.4-10.2) mg/dL Total Bilirubin (0.2-1.3) mg/dL AST (14-36) U/L ALT (4-34) U/L Alkaline Phosphatase (38-126) U/L Troponin I (0.000-0.034) ng/mL NT-Pro-B Natriuret Pep pg/mL Total Protein (6.3-8.2) g/dL Albumin (3.5-5.0) g/dL Urine Color Molly Urine Appearance Slightly Cloudy H (Clear) Urine pH 7.0 (5.0-8.0) Ur Specific [place] 1.005 (1.001-1.035) Urine Protein Negative (Negative) Urine Glucose (UA) Negative (Negative) Urine Ketones Negative (Negative) Urine Blood Negative (Negative) Urine Nitrite Negative (Negative) Urine Bilirubin Negative (Negative) Urine Urobilinogen <2.0 (<2.0) mg/dL Ur Leukocyte Esterase Negative (Negative) Urine RBC <1 (0-5) /hpf Urine WBC 5 (0-5) /hpf Ur Squamous Epith Cells 3 (0-4) /hpf Urine Mucus Occasional H (None) /hpf 06/09/20 06/09/20 06/09/20 Range/Units 07:48 07:48 07:48 WBC (3.8-10.6) k/uL RBC (3.80-5.40) m/uL Hgb (11.4-16.0) gm/dL Hct (34.0-46.0) % MCV (80.0-100.0) fL MCH (25.0-35.0) pg MCHC (31.0-37.0) g/dL RDW (11.5-15.5) % Plt Count (150-450) k/uL Neutrophils % % Lymphocytes % % Monocytes % % Eosinophils % % Basophils % % Neutrophils # (1.3-7.7) k/uL Lymphocytes # (1.0-4.8) k/uL Monocytes # (0-1.0) k/uL Eosinophils # (0-0.7) k/uL Basophils # (0-0.2) k/uL PT (9.0-12.0) sec INR (<1.2) APTT (22.0-30.0) sec Sodium 138 (137-145) mmol/L Potassium 3.8 (3.5-5.1) mmol/L Chloride 104 (98-107) mmol/L Carbon Dioxide 26 (22-30) mmol/L Anion Gap 8 mmol/L BUN 9 (7-17) mg/dL Creatinine 0.50 L (0.52-1.04) mg/dL Est GFR (CKD-EPI)AfAm >90 (>60 ml/min/1.73 sqM) Est GFR (CKD-EPI)NonAf >90 (>60 ml/min/1.73 sqM) Glucose 86 (74-99) mg/dL Calcium 9.2 (8.4-10.2) mg/dL Total Bilirubin 1.3 (0.2-1.3) mg/dL AST 51 H (14-36) U/L ALT 25 (4-34) U/L Alkaline Phosphatase 67 (38-126) U/L Troponin I <0.012 (0.000-0.034) ng/mL NT-Pro-B Natriuret Pep 1030 pg/mL Total Protein 8.0 (6.3-8.2) g/dL Albumin 4.3 (3.5-5.0) g/dL Urine Color Urine Appearance (Clear) Urine pH (5.0-8.0) Ur Specific [place] (1.001-1.035) Urine Protein (Negative) Urine Glucose (UA) (Negative) Urine Ketones (Negative) Urine Blood (Negative) Urine Nitrite (Negative) Urine Bilirubin (Negative) Urine Urobilinogen (<2.0) mg/dL Ur Leukocyte Esterase (Negative) Urine RBC (0-5) /hpf Urine WBC (0-5) /hpf Ur Squamous Epith Cells (0-4) /hpf Urine Mucus (None) /hpf - Radiology Data Radiology results: report reviewed Chest x-ray shows no acute infiltrate. Correlate for mild fluid overload status as this tiny bilateral pleural effusions seen on the lateral view with blunting of the posterior costophrenic angles and mild central vascular congestion both felt new from prior chest x-ray. Disposition Clinical Impression: Shortness of breath, Pleural effusion Disposition: ADMITTED IP TO THIS HOSP Condition: Stable Is patient prescribed a controlled substance at d/c from ED?: No Referrals: None,Stated [Primary Care Provider] - 1-2 days Time of Disposition: 09:03
[2020-06-09 06:51] LABS: Color,Urine Amber
[2020-06-09 06:52] LABS: Appearance,Urine Slightly Cloudy (Clear); Bilirubin,Urine Negative (Negative); Blood,Urine Negative (Negative); Glucose,Urine (UA) Negative (Negative); Ketones,Urine Negative (Negative); Protein,Urine Negative (Negative); Specific Gravity,Urine 1.005 (1.001-1.035); Urobilinogen,Urine <2.0 mg/dL (<2.0)
[2020-06-09 06:53] LABS: Leukocyte Esterase,Urine Negative (Negative); Nitrite,Urine Negative (Negative)
--- NOTE | 2020-06-09 06:55 | XR ---
EXAMINATION TYPE: XR chest 2V DATE OF EXAM: 06/09/2020 COMPARISON: Chest x-ray February 03, 2018 HISTORY: Cough. TECHNIQUE: Frontal and lateral views of the chest are obtained. FINDINGS: There is no focal air space opacity or pneumothorax seen. The cardiac silhouette size rem ains within normal limits. Some atherosclerotic change in the aortic knob. Some increased central va scular congestion and tiny bilateral pleural effusions seen best on lateral view. The osseous structu res are intact. Cholecystectomy clips noted on lateral view. IMPRESSION: No new acute infiltrate. Correlate for mild fluid overload status there are tiny bilater al pleural effusions seen on lateral view with blunting of posterior costophrenic angles and mild hannah tral vascular congestion both felt new from prior x-ray.
[2020-06-09 08:11] LABS: Basophils # (A) 0.1 k/uL (0-0.2); Basophils % (A) 1 %; Eosinophils # (A) 0.2 k/uL (0-0.7); Eosinophils % (A) 2 %; HCT 43.4 % (34.0-46.0); HGB 14.3 gm/dL (11.4-16.0); Lymphocytes # (A) 3.1 k/uL (1.0-4.8); Lymphocytes % (A) 28 %; MCH 30.4 pg (25.0-35.0); MCHC 32.9 g/dL (31.0-37.0); MCV 92.3 fL (80.0-100.0); Mean Platelet Volume 7.7; Monocytes # (A) 0.7 k/uL (0-1.0); Monocytes % (A) 7 %; Neutrophils # (A) 6.9 k/uL (1.3-7.7); Neutrophils % (A) 61 %; Platelet Count 286 k/uL (150-450); RDW 13.4 % (11.5-15.5); WBC 11.3 k/uL (3.8-10.6)
[2020-06-09 08:20] LABS: ALT 25 U/L (4-34); African American GFR (CKD) >90 (>60 ml/min/1.73 sqM); Albumin 4.3 g/dL (3.5-5.0); Anion Gap 8 mmol/L; Blood Urea Nitrogen 9 mg/dL (7-17); Calcium 9.2 mg/dL (8.4-10.2); Carbon Dioxide 26 mmol/L (22-30); Chloride 104 mmol/L (98-107); Glucose 86 mg/dL (74-99); Non-African American GFR(CKD) >90 (>60 ml/min/1.73 sqM); Sodium 138 mmol/L (137-145); Total Bilirubin 1.3 mg/dL (0.2-1.3)
[2020-06-09 08:24] LABS: Mucus,Urine Occasional /hpf; RBC,Urine <1 /hpf (0-5); Squamous Epithelial Cell,Urine 3 /hpf (0-4); WBC,Urine 5 /hpf (0-5)
[2020-06-09 08:24] LABS: Partial Thromboplastin Time 24.7 sec (22.0-30.0); Prothrombin Time 10.1 sec (9.0-12.0)
[2020-06-09 08:30] LABS: AST 51 U/L (14-36); Alkaline Phosphatase 67 U/L (38-126)
[2020-06-09 08:41] LABS: Potassium 3.8 mmol/L (3.5-5.1)
[2020-06-09] MEDS ORDERED: KETOROLAC 15 MG/ML 1 ML VIAL IVP PRN (09:03)
[2020-06-09] MEDS ORDERED: NALOXONE 0.4 MG/ML 1 ML VIAL IV PRN ×2 (09:03→11:58)
[2020-06-09] MEDS ORDERED: IBUPROFEN 400 MG TAB PO PRN (09:03)
[2020-06-09] MEDS: ACETAMINOPHEN TAB 325 MG TAB PO PRN ×2 (09:25→19:19)
[2020-06-09] MEDS: clonazePAM 0.5 MG TAB PO SCH ×2 (12:59→20:10)
--- NOTE | 2020-06-09 15:00 | ECHOF ---
Referral Reason:pleural effusion, sob MEASUREMENTS -------- HEIGHT: 172.7 cm WEIGHT: 81.6 kg BP: RVIDd: 2.0 cm (< 3.3) IVSd: 1.2 cm (0.6 - 1.1) LVIDd: 3.8 cm (3.9 - 5.3) LVPWd: 1.1 cm (0.6 - 1.1) IVSs: 1.5 cm LVIDs: 1.9 cm LVPWs: 1.9 cm LAESV Index (A-L): 31.44 ml/m Ao Diam: 2.5 cm (2.0 - 3.7) AV Cusp: 1.8 cm (1.5 - 2.6) LA Diam: 3.9 cm (2.7 - 3.8) MV EXCURSION: 13.536 mm (> 18.000) MV EF SLOPE: 39 mm/s (70 - 150) EPSS: 0.4 cm MV E Dieter: 2.38 m/s MV DecT: 175 ms MV A Dieter: 2.34 m/s MV E/A Ratio: 1.02 AR PHT: 334 ms RAP: 5.00 mmHg RVSP: 52.33 mmHg FINDINGS -------- Sinus rhythm. This was a technically good study. The left ventricular size is normal. There is borderline concentric left ventricular hypertrophy. Overall left ventricular systolic function is normal with, an EF between 55 - 60 %. Sigmoid shaped septum with focal hypertrophy of the basal septum. The remaining wall thickness is normal. Increas ed LAP Grade 2 Diastolic Dysfunction. The right ventricle is normal in size. LA is midly dilated 29-33ml/m2. The right atrial size is normal. Interatrial and interventricular septum intact. The aortic valve was not well visualized. There is moderate aortic regurgitation. The mitral valve leaflets are mildly thickened. Severe mitral regurgitation is present. The tricuspid valve appears structurally normal. Mild tricuspid regurgitation present. There is m oderate pulmonary hypertension. The right ventricular systolic pressure, as measured by Doppler, is 52.33mmHg. Trace/mild (physiologic) pulmonic regurgitation. The aortic root size is normal. Normal inferior vena cava with normal inspiratory collapse consistent with estimated right atrial pre ssure of 5 mmHg. There is no pericardial effusion. CONCLUSIONS -------- 1. The left ventricular size is normal. 2. There is borderline concentric left ventricular hypertrophy. 3. Overall left ventricular systolic function is normal with, an EF between 55 - 60 %. 4. Sigmoid shaped septum with focal hypertrophy of the basal septum. The remaining wall thickness is normal. 5. Increased LAP Grade 2 Diastolic Dysfunction. 6. LA is midly dilated 29-33ml/m2. 7. There is moderate aortic regurgitation. 8. The mitral valve leaflets are mildly thickened. 9. Severe mitral regurgitation is present. 10. Mild tricuspid regurgitation present. 11. There is moderate pulmonary hypertension. 12. Trace/mild (physiologic) pulmonic regurgitation. GRADE CHECKER: Raisa Hernandez RDCS
--- NOTE | 2020-06-09 16:29 | P.HPIM ---
History of Present Illness H&P Date: 06/09/20 Chief Complaint: Gen weakness, muscle aches, orthopnea, dyspnea 45-year-old woman past medical history of anxiety/depression, Crohn's disease, ADHD, hypertension presented with complaints of muscle aches, generalized weakness/fatigue, chills, increasing dyspnea on exertion/orthopnea for the last several weeks, worsening last several days. Patient tells me that these sympt oms have become so severe that she can barely get out of bed to her bathroom without feeling significantly fatigued afterwards. She also feels such restriction of oxygen that if her puts her arm around her chest she starts to feel dyspneic. She doesn't have much energy to go to work/B at work for very long. She is also started to notice some increase in swelling in her belly, which feels different than her Crohn's flares. She denies fevers, nausea, vomiting, abdominal pain, diarrhea, hematochezia, melena, chest pain, syncope. She does report weakness, intermittent palpitations. On arrival patient was afebrile, 174/91, heart rate 96, 99% on room air. CBC showed a mild leukocytosis to 11.3, otherwise unremarkable. Chemistries are unremarkable. LFTs show an AST to ALT value of 51-25, otherwise unremarkable. BNP was over thousand. Troponin is negative. EKG showed normal sinus rhythm with evidence of increased left atrial enlargement. Chest x-ray showed mild vascular congestion with trace bilateral effusions. Review of Systems All Systems reviewed and pertinent positives and negatives noted in HPI, all other symptoms are negative Past Medical History Past Medical History: Fibromyalgia, Hypertension, Memory Impairment, Rheumatoid Arthritis (RA) Additional Past Medical History / Comment(s): anxiety,depression, irritable bowel, ptsd, crohn's disease. vertigo. hypoglycemia History of Any Multi-Drug Resistant Organisms: None Reported Past Surgical History: No Surgical Hx Reported, Cholecystectomy Additional Past Surgical History / Comment(s): laprascopy 1994 D&C Past Anesthesia/Blood Transfusion Reactions: No Reported Reaction Past Psychological History: ADD/ADHD, Anxiety, Depression, Panic Disorder, PTSD Smoking Status: Never smoker Past Alcohol Use History: None Reported Past Drug Use History: None Reported - Past Family History Mother Family Medical History: Congestive Heart Failure (CHF) Medications and Allergies Home Medications Medication Instructions Recorded Confirmed Type Loperamide [Imodium] 2 mg PO TID PRN 12/22/15 06/09/20 History clonazePAM [KlonoPIN] 0.5 mg PO BID 02/03/18 06/09/20 History traZODone HCL 150 mg PO HS 02/03/18 06/09/20 History Acetaminophen [Tylenol Extra 1,000 mg PO Q6H PRN 06/09/20 06/09/20 History Strength] Cranberry Fruit Extract [Cranberry] 500 mg PO DAILY 06/09/20 06/09/20 History Dextroamphetamine/Amphetamine 20 mg PO BID 06/09/20 06/09/20 History [Adderall] Escitalopram Oxalate [Lexapro] 10 mg PO HS 06/09/20 06/09/20 History Nitrofurantoin Monohyd/M-Cryst 100 mg PO BID 06/09/20 06/09/20 History [Macrobid] Allergies Allergy/AdvReac Type Severity Reaction Status Date / Time latex Allergy Unknown Verified 06/09/20 12:31 Penicillins Allergy Unknown Verified 06/09/20 12:31 prochlorperazine edisylate Allergy Unknown Verified 06/09/20 12:31 [From Compazine] prochlorperazine maleate Allergy Unknown Verified 06/09/20 12:31 [From Compazine] Physical Exam Osteopathic Statement: *. No significant issues noted on an osteopathic structural exam other than those noted in the History and Physical/Consult. Vitals: Vital Signs Temp Pulse Pulse Resp BP BP Pulse Ox 06/09/20 16:00 16 06/09/20 12:00 96 16 06/09/20 11:13 97.1 F L 96 16 171/91 99 06/09/20 09:49 98.9 F 891 H 18 136/98 99 06/09/20 09:00 89 18 136/98 99 06/09/20 08:00 18 06/09/20 06:57 96 06/09/20 06:50 94 06/09/20 06:05 18 06/09/20 05:42 98.9 F 101 H 20 165/98 100 Intake and Output 06/09/20 06/09/20 06/09/20 06:59 14:59 22:59 Intake Total 230 Balance 230 Intake: Oral 230 Other: Weight 81.647 kg 81.647 kg Gen: awake, alert HEENT: normocephalic, atraumatic, good hearing acuity, moist mucous membranes Resp: Bilateral posterior crackles, good air exchange, adequate lung expansion, no accessory muscle use CVS: Regular rhythm, normal rate, loud crescendo/decrescendo murmur GI: soft, NTTP, mildly distended : no SPT, no CVAT, hernandez catheter not present MSK: no pitting edema, no clubbing Neuro: non-focal, no sensory deficits, appropriate tone Psych: cooperative, euthymic mood Results CBC & Chem 7: 06/09/20 07:48 06/09/20 07:48 Labs: Abnormal Lab Results - Last 24 Hours (Table) 06/09/20 06/09/20 06/09/20 Range/Units 06:34 07:48 07:48 WBC 11.3 H (3.8-10.6) k/uL Creatinine 0.50 L (0.52-1.04) mg/dL AST 51 H (14-36) U/L Cholesterol (<200) mg/dL LDL Cholesterol, Calc (0-99) mg/dL HDL Cholesterol (40-60) mg/dL Urine Appearance Slightly Cloudy H (Clear) Urine Mucus Occasional H (None) /hpf 06/09/20 Range/Units 07:48 WBC (3.8-10.6) k/uL Creatinine (0.52-1.04) mg/dL AST (14-36) U/L Cholesterol 202 H (<200) mg/dL LDL Cholesterol, Calc 113 H (0-99) mg/dL HDL Cholesterol 71 H (40-60) mg/dL Urine Appearance (Clear) Urine Mucus (None) /hpf Thrombosis Risk Factor Assmnt - Choose All That Apply Each Factor Represents 1 point: Age 41-60 years Thrombosis Risk Factor Assessment Total Risk Factor Score: 1 Thrombosis Risk Factor Assessment Level: Low Risk Assessment and Plan Assessment: 1. Congestive heart failure exacerbation 2. Anxiety and depression 3. Hypertension, essential 4. ADHD 5. Crohn's disease next 45-year-old woman with past medical history of Crohn's disease, ADHD, hypertension, anxiety/depression presented with several weeks of increasing chills, muscle aches, with new onset dyspnea on exertion and orthopnea and was found to have elevated BNP, where chest x-ray concerning for newly diagnosed heart failure exacerbation. Plan: #HF exacerbation - I/Os, daily weights - f/u echo - cardiology c/s - lasix 40mg IV daily - BCx - Procalcitonin, ESR/CRP, if elevated consider SAMUEL, ANCA panel - TSH, A1c, Lipid Panel - monitor on telemetry Chronic Medical Conditions: #Anxiety/Depression #HTN #ADHD #Crohn's - continue home meds as per med rec Full Code is DPOA DVT PPx: early ambulation + enoxaparin 40mg SQ
--- NOTE | 2020-06-09 18:40 | CONS ---
CONSULTATION Mrs. Knox is a 45-year-old female who does not follow with a physician on a regular basis, who presented with symptoms of recurrent dyspnea, PND, not feeling well with cough. She had multiple visits to Urgent Care with the same symptoms recently. She has been having worsening dyspnea and because of that, came into the emergency room and subsequently admitted. In the emergency room, she was noted to have mild NT proBNP elevation. The patient has been told that she has a heart murmur in the past when she was a child, but not evaluated recently. She is active physically and has been having dyspnea on exertion. She has some chest discomfort recently, but some of the discomfort is worse with deep breathing and coughing. She has noted symptoms of PND. No palpitation. No syncope, but she feels quite anxious and does not feel well. She has no prior documented history of obstructive coronary disease or congestive heart failure. Her coronary risk factors are remarkable for hypertension. She is a nonsmoker, nondiabetic. Her lipid profile is not available. Past medical is remarkable for history of anxiety. MEDICATION: Prinivil 20 mg daily, Klonopin 0.5 mg twice a day, trazodone, Lexapro and Adderall. REVIEW OF SYSTEMS: RESPIRATORY system: She has the dyspnea on exertion and the cough. No fever. Occasional wheezing. She has been told that she had asthma in the past. system: No dysuria or hematuria. NERVOUS SYSTEM: No history of stroke or seizure. PHYSICAL EXAMINATION: 45-year-old female, alert, oriented, in no apparent distress. Blood pressure running in the 130s-170s with a heart rate in the 80s. HEAD: Normocephalic. EYES: Sclerae anicteric. NECK: No bruit. LUNGS: No wheezes or rales appreciated. HEART: Regular rate and rhythm S1, S2. No S3 with a systolic murmur at the base 2/6 and a holosystolic murmur at the apex 2/6. ABDOMEN: Soft, nontender. Positive bowel sounds. No organomegaly. EXTREMITIES: No significant edema. LAB DATA: Revealed a hemoglobin 14.3, white blood cell of 11.3, BUN and creatinine of 9 and 0.5. Troponin less than 0.012. NT proBNP of 1030. EKG revealed a sinus mechanism, normal axis and intervals. No acute changes. Chest x-ray shows a small pleural effusion with mild congestion. IMPRESSION: 1. Symptoms of progressive dyspnea with mild elevation of NT proBNP suggestive of congestive heart failure, of unclear etiology. Patient has what appears to be a mitral regurgitation murmur. She has been told that she had a heart murmur in the past. 2. History of anxiety. 3. Hypertension. RECOMMENDATIONS: I will re-initiate treatment with the lisinopril. Continue IV diuretics. I will await the results for echocardiogram and depending on that, further recommendation will be made. Thank you for this consult. We will follow with you. MMODL / IJN: [id number] /
[2020-06-09] MEDS: FUROSEMIDE 10 MG/ML 4 ML VIAL IV SCH (20:09)
[2020-06-09] MEDS: traZODone HCL 100 MG TAB PO SCH (20:10)
[2020-06-09] MEDS: ESCITALOPRAM 10 MG TAB PO SCH (20:10)
[2020-06-09] MEDS ORDERED: clonazePAM 0.5 MG TAB PO SCH (21:00)
[2020-06-09 23:32] LABS: Urine Alcohol Negative (Negative); Urine Barbiturate Negative (Negative); Urine Cocaine Negative (Negative); Urine Methadone Negative (Negative); Urine Opiates Negative (Negative); Urine Phencyclidine Negative (Negative)
[2020-06-09 23:53] LABS: Hemoglobin A1C 4.7 % (4.0-6.0)
[2020-06-10] MEDS: ACETAMINOPHEN TAB 325 MG TAB PO PRN ×3 (03:43→20:28)
[2020-06-10 06:28] LABS: Basophils # (A) 0.1 k/uL (0-0.2); Basophils % (A) 1 %; Eosinophils # (A) 0.3 k/uL (0-0.7); Eosinophils % (A) 4 %; HCT 42.6 % (34.0-46.0); HGB 13.6 gm/dL (11.4-16.0); Lymphocytes # (A) 2.3 k/uL (1.0-4.8); Lymphocytes % (A) 35 %; MCH 29.7 pg (25.0-35.0); MCHC 31.9 g/dL (31.0-37.0); Mean Platelet Volume 7.5; Monocytes # (A) 0.5 k/uL (0-1.0); Monocytes % (A) 8 %; Neutrophils # (A) 3.1 k/uL (1.3-7.7); Neutrophils % (A) 48 %; Platelet Count 286 k/uL (150-450); RBC 4.58 m/uL (3.80-5.40); RDW 13.4 % (11.5-15.5); WBC 6.5 k/uL (3.8-10.6)
[2020-06-10 06:34] LABS: African American GFR (CKD) >90 (>60 ml/min/1.73 sqM); Anion Gap 8 mmol/L; Blood Urea Nitrogen 12 mg/dL (7-17); Calcium 8.7 mg/dL (8.4-10.2); Carbon Dioxide 24 mmol/L (22-30); Chloride 105 mmol/L (98-107); Glucose 90 mg/dL (74-99); Magnesium 1.8 mg/dL (1.6-2.3); Non-African American GFR(CKD) >90 (>60 ml/min/1.73 sqM); Potassium 4.1 mmol/L (3.5-5.1); Sodium 137 mmol/L (137-145)
[2020-06-10] MEDS: FUROSEMIDE 10 MG/ML 4 ML VIAL IV SCH (08:56)
[2020-06-10] MEDS: ENOXAPARIN 40 MG/0.4 ML SYRINGE SQ SCH (08:57)
[2020-06-10] MEDS: clonazePAM 0.5 MG TAB PO SCH ×2 (08:57→21:22)
[2020-06-10] MEDS ORDERED: FUROSEMIDE 10 MG/ML 4 ML VIAL IV SCH (09:00)
[2020-06-10] MEDS ORDERED: lisinopriL 20 MG TAB PO SCH (09:00)
[2020-06-10] MEDS ORDERED: NON FORMULARY DRUG (Cranberry Fruit Extract [Cranberry] 500 MG) PO SCH (09:00)
--- NOTE | 2020-06-10 11:24 | P.PN ---
Subjective Progress Note Date: 06/10/20 Pt has no new complaints today. Continues to report anxiety. Objective - Vital Signs Vital signs: Vital Signs Temp 98.3 F 06/10/20 08:00 Pulse 87 06/10/20 08:00 Resp 17 06/10/20 08:00 BP 133/73 06/10/20 08:00 Pulse Ox 97 06/10/20 08:00 Intake & Output 06/09/20 06/10/20 06/10/20 18:59 06:59 18:59 Intake Total 410 Output Total 1300 Balance 410 -1300 Weight 81.647 kg 83.4 kg Intake: Oral 410 Output: Urine 1300 Other: Voiding Method Toilet Toilet # Voids 1 - Exam Gen: awake, alert HEENT: normocephalic, atraumatic, good hearing acuity, moist mucous membranes Resp: Bilateral posterior crackles, good air exchange, adequate lung expansion, no accessory muscle use CVS: Regular rhythm, normal rate, loud crescendo/decrescendo murmur GI: soft, NTTP, mildly distended : no SPT, no CVAT, hernandez catheter not present MSK: no pitting edema, no clubbing Neuro: non-focal, no sensory deficits, appropriate tone Psych: cooperative, euthymic mood - Labs CBC & Chem 7: 06/10/20 05:31 06/10/20 05:31 Labs: Abnormal Lab Results - Last 24 Hours (Table) 06/09/20 06/09/20 06/09/20 Range/Units 07:48 14:57 14:57 C-Reactive Protein 24.3 H (<10.0) mg/L Cholesterol 202 H (<200) mg/dL LDL Cholesterol, Calc 113 H (0-99) mg/dL HDL Cholesterol 71 H (40-60) mg/dL Procalcitonin 0.11 H (0.02-0.09) ng/mL Ur Amphetamine Screen (Negative) ng/mL U Cannabinoids Screen (Negative) ng/mL 06/09/20 Range/Units 20:03 C-Reactive Protein (<10.0) mg/L Cholesterol (<200) mg/dL LDL Cholesterol, Calc (0-99) mg/dL HDL Cholesterol (40-60) mg/dL Procalcitonin (0.02-0.09) ng/mL Ur Amphetamine Screen Positive H (Negative) ng/mL U Cannabinoids Screen Positive H (Negative) ng/mL Assessment and Plan Assessment: 1. Congestive heart failure exacerbation 2. Anxiety and depression 3. Hypertension, essential 4. ADHD 5. Crohn's disease next 45-year-old woman with past medical history of Crohn's disease, ADHD, hypertension, anxiety/depression presented with several weeks of increasing chills, muscle aches, with new onset dyspnea on exertion and orthopnea and was found to have elevated BNP, where chest x-ray concerning for newly diagnosed heart failure exacerbation. Plan: #HF exacerbation - I/Os, daily weights - f/u echo = significant valvular disease, grade II diastolic dysfunction + pulm HTN - cardiology c/s, pending - lasix 40mg IV daily - BCx, pending - Procalcitonin = 0.11, ESR/CRP = 20/24.3, - will consider SAMUEL, ANCA panel if cardiology agrees - TSH, A1c, Lipid Panel = 2.25, 4.7, HDL/LDL/TG = 71/113/90 - monitor on telemetry = no events overnight Chronic Medical Conditions: #Anxiety/Depression #HTN #ADHD #Crohn's - continue home meds as per med rec Full Code is DPOA DVT PPx: early ambulation + enoxaparin 40mg SQ
--- NOTE | 2020-06-10 16:02 | PN ---
PROGRESS NOTE Mrs. Knox is a 45-year-old female who presented with symptoms of progressive dyspnea and evidence of congestive heart failure. She is feeling better today. Her breathing is better. She denies any chest pain. She denies any dizziness or palpitation. She denies any nausea. She continues to be on furosemide 40 mg IV q.12 hours, lisinopril 20 mg daily, Klonopin. PHYSICAL EXAMINATION: Blood pressure 113/70 with a heart rate in the 80s. LUNGS: Clear. HEART: Regular rate and rhythm S1, S2. No S3 with a holosystolic murmur in the apex and a systolic ejection murmur at the base. No rub. ABDOMEN: Soft and nontender. EXTREMITIES: No edema. LAB DATA: BUN and creatinine 12 and 0.6, hemoglobin of 13.6. Her echocardiogram showed a preserved ventricular systolic function with severe mitral regurgitation and moderate aortic regurgitation with moderate pulmonary hypertension. IMPRESSION: 1. Symptoms of congestive heart failure with severe mitral regurgitation of unclear etiology. 2. Moderate pulmonary hypertension and moderate aortic regurgitation. 3. History of heart murmur as a child, although details are not available. 4. History of anxiety. 5. History of hypertension. RECOMMENDATION: I will stop the IV Lasix and switch her to oral. I would recommend to proceed with transesophageal echocardiogram to further assess her mitral valve apparatus and guide her treatment. I have discussed with her the findings and recommendation, as well as the risks of the procedure. Depending on results of testing, further recommendation will be made. MMODL / IJN: [id number] /
[2020-06-10] MEDS: LOPERAMIDE 2 MG CAP PO PRN (16:10)
[2020-06-10] MEDS: FUROSEMIDE 40 MG TAB PO SCH (16:10)
[2020-06-10] MEDS: traZODone HCL 100 MG TAB PO SCH (21:21)
[2020-06-10] MEDS: ESCITALOPRAM 10 MG TAB PO SCH (21:22)
[2020-06-10] MEDS: SODIUM CHLORIDE 0.9% 1,000 ML IV SCH ×2 (21:23→21:24)
[2020-06-11] MEDS ORDERED: SODIUM CHLORIDE 0.9% 250 ML IV SCH ×2 (04:30)
[2020-06-11] MEDS ORDERED: SODIUM CHLORIDE 0.9% 1,000 ML IV SCH (04:30)
[2020-06-11 07:01] LABS: Calcium 8.2 mg/dL (8.4-10.2); Potassium 4.1 mmol/L (3.5-5.1)
[2020-06-11] MEDS: ENOXAPARIN 40 MG/0.4 ML SYRINGE SQ SCH (08:01)
[2020-06-11] MEDS ORDERED: IV FLUID CONTINUATION 1,000 ML IV ONE (11:21)
[2020-06-11] MEDS: BENZOCAINE SPRAY 1 CAN MUCOUS MEM ONE ×2 (11:21→11:29)
--- NOTE | 2020-06-11 11:30 | P.PN ---
Subjective Progress Note Date: 06/11/20 No new complaints at this time. Pending SHELBY today for further evaluation of mitral valve. Objective - Vital Signs Vital signs: Vital Signs Temp 97.9 F 06/11/20 08:00 Pulse 85 06/11/20 11:22 Resp 19 06/11/20 11:22 BP 123/70 06/11/20 11:22 Pulse Ox 100 06/11/20 11:22 Intake & Output 06/10/20 06/11/20 06/11/20 18:59 06:59 18:59 Intake Total 230 Output Total 1200 Balance -970 Weight 83.2 kg Intake: Oral 230 Output: Urine 1200 Other: Voiding Method Toilet Toilet Toilet # Voids 2 1 - Exam Gen: awake, alert HEENT: normocephalic, atraumatic, good hearing acuity, moist mucous membranes Resp: Bilateral posterior crackles, good air exchange, adequate lung expansion, no accessory muscle use CVS: Regular rhythm, normal rate, loud crescendo/decrescendo murmur GI: soft, NTTP, mildly distended : no SPT, no CVAT, hernandez catheter not present MSK: no pitting edema, no clubbing Neuro: non-focal, no sensory deficits, appropriate tone Psych: cooperative, euthymic mood - Labs CBC & Chem 7: 06/10/20 05:31 06/11/20 06:00 Labs: Abnormal Lab Results - Last 24 Hours (Table) 06/11/20 Range/Units 06:00 Sodium 135 L (137-145) mmol/L BUN 23 H (7-17) mg/dL Creatinine 1.09 H (0.52-1.04) mg/dL Calcium 8.2 L (8.4-10.2) mg/dL Microbiology - Last 24 Hours (Table) 06/09/20 16:52 Blood Culture - Preliminary Blood No Growth after 24 hours Assessment and Plan Assessment: 1. Congestive heart failure exacerbation 2. Anxiety and depression 3. Hypertension, essential 4. ADHD 5. Crohn's disease next 45-year-old woman with past medical history of Crohn's disease, ADHD, hypertension, anxiety/depression presented with several weeks of increasing chills, muscle aches, with new onset dyspnea on exertion and orthopnea and was found to have elevated BNP, where chest x-ray concerning for newly diagnosed heart failure exacerbation. Plan: #HF exacerbation - I/Os, daily weights - f/u echo = significant valvular disease, grade II diastolic dysfunction + pulm HTN - cardiology c/s, SHELBY pending today. - lasix 40mg IV daily --> lasix 40mg PO BID - BCx, NGTD - Procalcitonin = 0.11, ESR/CRP = 20/24.3, - will consider SAMUEL, ANCA panel if cardiology agrees - TSH, A1c, Lipid Panel = 2.25, 4.7, HDL/LDL/TG = 71/113/90 - monitor on telemetry = no events overnight Chronic Medical Conditions: #Anxiety/Depression #HTN #ADHD #Crohn's - continue home meds as per med rec Full Code is DPOA DVT PPx: early ambulation + enoxaparin 40mg SQ
[2020-06-11] MEDS ORDERED: fentaNYL (PF) 50 MCG/ML 2 ML AMP IV ONE (11:43)
[2020-06-11] MEDS ORDERED: MIDAZOLAM 2 MG/2 ML VIAL IV ONE (11:43)
[2020-06-11] MEDS: MIDAZOLAM 2 MG/2 ML VIAL IV ONE (11:45)
[2020-06-11] MEDS ORDERED: SODIUM CHLORIDE 0.9% 1,000 ML in EMPTY BAG 1 BAG IV ONE (12:03)
[2020-06-11] MEDS ORDERED: ASPIRIN 325 MG TAB PO STA (12:03)
[2020-06-11] MEDS ORDERED: ALPRAZolam 0.25 MG TAB PO PRN (12:03)
[2020-06-11] MEDS ORDERED: ALPRAZolam 0.5 MG TAB PO PRN (12:03)
[2020-06-11] MEDS ORDERED: ATORVASTATIN 80 MG TAB PO STA (12:03)
[2020-06-11] MEDS ORDERED: NITROGLYCERIN SL TABS 0.4 MG TAB SUBLINGUAL PRN (12:03)
[2020-06-11] MEDS: clonazePAM 0.5 MG TAB PO SCH ×2 (12:25→21:09)
--- NOTE | 2020-06-11 12:37 | ECHOT ---
TRANSESOPHAGEAL ECHOCARDIOGRAM DATE OF SERVICE: 06/11/2020 PERFORMING PHYSICIAN: Dr. Winters PROCEDURE PERFORMED: Transesophageal echocardiogram INDICATIONS: Evaluation of mitral valve. COMPLICATIONS: LEVEL OF SEDATION: PROCEDURE DESCRIPTION: After explaining the procedure to the patient, risks and complications, blood pressure, heart rate and O2 saturation was monitored. The throat was sprayed with Cetacaine. She received 3 mg intravenous Versed, 50 mcg intravenous fentanyl. The probe was introduced into the esophagus without difficulties. Images were obtained. Following that, the probe was removed. There was no immediate complications. FINDINGS: Left atrial size is dilated. Left atrial appendage is normal. Left ventricular size and systolic function normal. The aortic valve and tricuspid and pulmonic valve is normal. The mitral valve is mildly thickened with mild prolapse of the posterior mitral valve leaflets. The descending thoracic aorta appears to be normal. Contrast bubble study revealed no evidence of shunting across the interatrial septum. Pulse wave and color Doppler obtained and revealed severe eccentric mitral regurgitation with moderate aortic regurgitation and mild tricuspid regurgitation. There was no shunting by color Doppler study. CONCLUSION: 1. Dilated left atrium. 2. Normal left ventricular size and systolic function. 3. Mild thickening of the mitral valve leaflets with prolapse of the posterior mitral leaflet and severe eccentric mitral regurgitation. 4. Moderate aortic and mild tricuspid regurgitation. 5. No shunting across the interatrial septum. 6. Normal appearance of the descending thoracic aorta. MMODL / IJN: [id number] / MTDD
[2020-06-11] MEDS: traZODone HCL 100 MG TAB PO SCH (21:09)
[2020-06-11] MEDS: ESCITALOPRAM 10 MG TAB PO SCH (21:09)
[2020-06-11] MEDS: SODIUM CHLORIDE 0.9% 1,000 ML IV SCH (21:10)
[2020-06-11] MEDS: ACETAMINOPHEN TAB 325 MG TAB PO PRN (21:10)
[2020-06-11 21:34] VITALS: RESP 18
[2020-06-12] MEDS: SODIUM CHLORIDE 0.9% 1,000 ML IV SCH ×3 (00:29→12:45)
[2020-06-12] MEDS ORDERED: ASPIRIN 325 MG TAB PO STA (07:20)
[2020-06-12 07:30] LABS: African American GFR (CKD) >90 (>60 ml/min/1.73 sqM); Anion Gap 4 mmol/L; Blood Urea Nitrogen 12 mg/dL (7-17); Calcium 8.3 mg/dL (8.4-10.2); Carbon Dioxide 23 mmol/L (22-30); Chloride 109 mmol/L (98-107); Glucose 92 mg/dL (74-99); Non-African American GFR(CKD) >90 (>60 ml/min/1.73 sqM); Potassium 4.2 mmol/L (3.5-5.1); Sodium 136 mmol/L (137-145)
[2020-06-12] MEDS ORDERED: IV FLUID CONTINUATION 1,000 ML IV ONE (07:30)
[2020-06-12] MEDS ORDERED: VERAPAMIL 2.5 MG/ML 2 ML AMP ONE ×2 (07:39→08:12)
[2020-06-12] MEDS ORDERED: LIDOCAINE 1% INJ 10MG/ML (20 ML MDV) ONE (07:39)
[2020-06-12] MEDS ORDERED: fentaNYL (PF) 50 MCG/ML 2 ML AMP ONE (07:39)
[2020-06-12] MEDS ORDERED: fentaNYL (PF) 50 MCG/ML 2 ML AMP IV ONE (07:50)
[2020-06-12] MEDS ORDERED: MIDAZOLAM 2 MG/2 ML VIAL IV ONE ×2 (07:54→08:14)
[2020-06-12] MEDS ORDERED: LIDOCAINE 1% INJ 10MG/ML (20 ML MDV) SQ ONE (07:55)
[2020-06-12] MEDS: VERAPAMIL SYRINGE (5 MG/10 ML) INTRAARTER ONE ×2 (07:56→08:10)
[2020-06-12] MEDS: MIDAZOLAM 2 MG/2 ML VIAL IV ONE (08:07)
[2020-06-12] MEDS ORDERED: HYDROmorphone 1 MG/ML 1 ML SYRINGE IVP ONE (08:10)
[2020-06-12] MEDS ORDERED: VERAPAMIL SYRINGE (5 MG/10 ML) INTRAARTER ONE (08:14)
[2020-06-12] MEDS ORDERED: HEPARIN SODIUM 1,000 UN/ML (10ML VL) ONE (08:17)
[2020-06-12] MEDS ORDERED: IOPAMIDOL-370 100ML BTL INJ ONE (08:21)
[2020-06-12] MEDS ORDERED: RX INFO: IV CONTRAST WAS GIVEN 1 EACH MISC MISCELLANE PRN (08:37)
[2020-06-12 08:40] LABS: O2 Sat Blood Gas 71.3 %
[2020-06-12 08:42] LABS: O2 Sat Blood Gas 72.4 %
[2020-06-12 08:44] LABS: O2 Sat Blood Gas 94.3 %
[2020-06-12] MEDS ORDERED: SODIUM CHLORIDE 0.9% 1,000 ML IV SCH (08:45)
--- NOTE | 2020-06-12 09:20 | CDI ---
Documentation Clarification Form Date: 06/12/2020 08:53:06 AM From: Susan Pineda RN, CCDS Admit Date: 06/11/2020 09:50:00 AM Patient Name: Tabitha Knox Visit Number: [id number] Discharge Date: ATTENTION: The Clinical Documentation Specialists (CDI) and [facility] Coding Staff appreciate your assistance in clarifying documentation. Please respond to the clarification below the line at the bottom and electronically sign. The CDI & [facility] Coding staff will review the response and follow-up if needed. Please note: Queries are made part of the Legal Health Record. If you have any questions, please contact the author of this message via ITS. Dr. Sukhdev Winters CHF is documented in the consult and subsequent progress notes. ECHO results has EF between 55-60 %. Please clarify acuity and type of congestive heart failure. History/Risk Factors: Chron's disease, ,ADHD, Hypertension, Rhumatoid Arthritis Clinical Indicators: 45-year-old female present to ED on 06/09 with complaints of muscle ache, generalized weakness, fatigue, chills, increasing dyspnea on exertion, orthopnea for the last sever weeks per ED evaluation. 06/09 Vital signs 05:42: 165/98 101 20 98.9 100 % RA 06/09 Chest x-ray: mild vascular congestion with trace bilateral effusions 06/09 Labs: WBC 11.3 BNP 1030, Troponin < 0.012, 06/09 Echocardiogram Results: Overall left ventricular systolic function is normal with, an EF between 55-60 %. Severe mitral regurgitation is present. There is moderate pulmonary hypertension. Treatment: Lasix 40 mg IV q 12 06/09-06/10, change to 40 po bid 06/10 06/11 SHELBY (Transesophageal Echocardiogram): Left atrial size is dilated. The mitral valve is mildly thickened with mild prolapse of the posterior mitral valve leaflets and severe eccentric mitral regurgitation In your professional opinion, can you please clarify the acuity and type of CHF if known? Acute Systolic Heart Failure: Acute on Chronic Systolic Heart Failure Acute Diastolic Heart Failure: Acute on Chronic Diastolic Heart Failure Acute Systolic & Diastolic Heart Failure Unable to Determine Other, please specify Severe MR (Last Revision: January 2018) MTDD
--- NOTE | 2020-06-12 09:33 | CC ---
CARDIAC CATHETERIZATION REPORT PROCEDURE PERFORMED: Cardiac catheterization. Mrs. Knox is a 45-year-old female who presented with symptoms of progressive dyspnea and evidence of congestive heart failure. She was found to have severe mitral regurgitation. In view of that, recommendation regarding cardiac catheterization. The procedures, risks, and complication were discussed with the patient who is in full understanding and agreement. PROCEDURE: Patient was brought to laboratory clerk in a fasting state. After receiving fentanyl and Benadryl and achieving moderate conscious sedated state, using Xylocaine anesthesia and Seldinger technique, a 6-Icelandic sheath was introduced in the right radial artery and an 8-Icelandic sheath in the right femoral vein. Selective right and left coronary angiography performed using 5-Icelandic, 3.5 bend right and left Gissell catheter multiple views of coronary arteries including isabelle-axial views were obtained. Following that, right heart catheterization was performed using [place] catheter. Multiple pressure and samples were obtained. Cardiac output by thermodilution was calculated. Following that, catheter and sheath were removed. Hemostasis was obtained with deployment of a TR band on the right radial artery and compression of the right femoral vein. Of note, the patient received 4500 units of intravenous heparin as well intra-arterial verapamil. She had severe vasospasm in the radial artery. FINDINGS: Left main: This is a short size vessel bifurcating in the left circumflex, left anterior descending artery. Left main coronary artery has no evidence of high-grade stenosis. Left anterior descending artery: This is a large-sized vessel reaching toward the apex, tapers down distal third. The left anterior descending artery gives rise to 2 diagonal branches of moderate caliber. The left anterior descending artery as well as branches have no evidence of obstructive coronary artery disease. Left circumflex: This is a nondominant vessel giving rise to a large obtuse marginal branch. The left circumflex as well as its branches have no evidence of obstructive coronary artery disease. Right coronary artery: This is a large dominant vessel bifurcating into PDA and posterolateral segment branches. The right coronary artery as well as branches have no evidence of obstructive coronary artery disease. HEMODYNAMICS: Pulmonary artery systolic pressure of 36 with a diastolic of 14 and a mean of 26 mmHg. Pulmonary capillary wedge pressure A-wave of 20 and a V-wave of 30 with a mean of 18 mmHg. Right ventricle systolic pressure of 40 with an end-diastolic of 6 mmHg. Right atrial A-wave of 6, V-wave of 4 with a mean of 3 mmHg. CARDIAC OUTPUT: Cardiac output by thermodilution is 6.9 L/minute. Pulmonary artery saturation 71%, right atrial saturation 72%, arterial saturation 94%. CONCLUSION: 1. Normal coronary arteries. 2. Giant V-wave consistent with severe mitral regurgitation. RECOMMENDATION: In view of finding anatomy, I recommend proceeding with evaluation for mitral valve repair. Those findings and recommendation were discussed with the patient and her family and they are in full understanding and agreement. Duration of procedure was 42 minutes. MMODL / IJN: [id number] /
[2020-06-12] MEDS: ACETAMINOPHEN TAB 325 MG TAB PO PRN (12:43)
[2020-06-12] MEDS: clonazePAM 0.5 MG TAB PO SCH ×2 (12:43→20:36)
[2020-06-12] MEDS: ENOXAPARIN 40 MG/0.4 ML SYRINGE SQ SCH (12:44)
[2020-06-12] MEDS: FUROSEMIDE 40 MG TAB PO SCH (12:44)
[2020-06-12] MEDS: CYCLOBENZAPRINE 5 MG TAB PO PRN (12:46)
--- NOTE | 2020-06-12 12:46 | P.PN ---
Subjective Progress Note Date: 06/12/20 Pt tolerated LHC/RHC today well. C/o right arm pain on LHC access side. CT Sx recommendations pending. Objective - Vital Signs Vital signs: Vital Signs Temp 98.0 F 06/12/20 09:00 Pulse 73 06/12/20 09:00 Resp 18 06/12/20 09:00 BP 98/56 06/12/20 09:00 Pulse Ox 97 06/12/20 09:00 Intake & Output 06/11/20 06/12/20 06/12/20 18:59 06:59 18:59 Intake Total 420 100 Output Total 250 Balance 420 -250 100 Weight 83 kg Intake: IV 100 100 Intake, IV Titration 320 Amount Sodium Chloride 0.9% 1, 320 000 ml In Empty Bag 1 bag @ 1 ML/KG/HR 83.2 mls/hr IV .Q12H2M ONE Rx#: [id number] Output: Urine 250 Other: Voiding Method Toilet Toilet # Voids 1 # Bowel Movements 1 - Exam Gen: awake, alert HEENT: normocephalic, atraumatic, good hearing acuity, moist mucous membranes Resp: Bilateral posterior crackles, good air exchange, adequate lung expansion, no accessory muscle use CVS: Regular rhythm, normal rate, loud crescendo/decrescendo murmur GI: soft, NTTP, mildly distended : no SPT, no CVAT, hernandez catheter not present MSK: no pitting edema, no clubbing Neuro: non-focal, no sensory deficits, appropriate tone Psych: cooperative, euthymic mood - Labs CBC & Chem 7: 06/10/20 05:31 06/12/20 06:43 Labs: Abnormal Lab Results - Last 24 Hours (Table) 06/12/20 Range/Units 06:43 Sodium 136 L (137-145) mmol/L Chloride 109 H (98-107) mmol/L Calcium 8.3 L (8.4-10.2) mg/dL Microbiology - Last 24 Hours (Table) 06/09/20 16:52 Blood Culture - Preliminary Blood No Growth after 48 hours Assessment and Plan Assessment: 1. Congestive heart failure exacerbation 2. Anxiety and depression 3. Hypertension, essential 4. ADHD 5. Crohn's disease next 45-year-old woman with past medical history of Crohn's disease, ADHD, hypertension, anxiety/depression presented with several weeks of increasing chills, muscle aches, with new onset dyspnea on exertion and orthopnea and was found to have elevated BNP, where chest x-ray concerning for newly diagnosed heart failure exacerbation. Plan: #HF exacerbation - I/Os, daily weights - f/u echo = significant valvular disease, grade II diastolic dysfunction + pulm HTN - cardiology c/s, s/p SHELBY/RHC/LHC - plan for eval by CT surgery. - lasix 40mg IV daily --> lasix 40mg PO BID - BCx, NGTD - Procalcitonin = 0.11, ESR/CRP = 20/24.3, - will consider SAMUEL, ANCA panel if cardiology agrees - TSH, A1c, Lipid Panel = 2.25, 4.7, HDL/LDL/TG = 71/113/90 - monitor on telemetry = no events overnight Chronic Medical Conditions: #Anxiety/Depression #HTN #ADHD #Crohn's - continue home meds as per med rec Full Code is DPOA DVT PPx: early ambulation + enoxaparin 40mg SQ
[2020-06-12] MEDS: LOPERAMIDE 2 MG CAP PO PRN (12:58)
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
--- NOTE | 2020-06-12 14:20 | US ---
EXAMINATION TYPE: US carotid duplex BILAT DATE OF EXAM: 06/12/2020 COMPARISON: NONE CLINICAL HISTORY: preop open heart. Pre op open heart, exam done portable. EXAM MEASUREMENTS: RIGHT: Peak Systolic Velocity (PSV) cm/sec ----- Right CCA: 76.5 ----- Right ICA: 101.7 ----- Right ECA: 102.9 ICA/CCA ratio: 1.3 RIGHT: End Diastole cm/sec ----- Right CCA: 23.7 ----- Right ICA: 34.0 ----- Right ECA: 22.1 LEFT: Peak Systolic Velocity (PSV) cm/sec ----- Left CCA: 87.5 ----- Left ICA: 99.3 ----- Left ECA: 84.2 ICA/CCA ratio: 1.1 LEFT: End Diastole cm/sec ----- Left CCA: 27.0 ----- Left ICA: 41.1 ----- Left ECA: 13.1 VERTEBRALS (direction of flow): Right Vertebral: Antegrade Left Vertebral: Antegrade Rhythm: Normal garcia scale images show no significant focal plaque at carotid bulb level. IMPRESSION: No hemodynamically significant stenosis seen in either internal carotid artery. Criteria for Assigning % of Stenosis / Diameter reduction (Estimation based on the indirect measurements of the internal carotid artery velocities (ICA PSV). 1. Normal (no stenosis)=ICA PSV < 125 cm/s: ratio < 2.0: ICA EDV<40 cm/s. 2. Less than 50% stenosis=ICA PSV < 125 cm/s: ratio < 2.0: ICA EDV<40 cm/s. 3. 50 to 69% stenosis=ICA PSV of 125 to 230 cm/s: ration 2.0 ? 4.0: ICA EDV 40-100 cm/s. 4. Greater than 70% stenosis to near occlusion= ICA PSV > 230 cm/s: ratio > 4.0: ICA EDV > 100 cm/s. 5. Near occlusion= ICA PSV velocities may be low or undetectable: variable ratio and ICA EDV. 6. Total occlusion=unable to detect flow.
--- NOTE | 2020-06-12 15:58 | CT ---
EXAMINATION TYPE: CT facial bones wo con DATE OF EXAM: 06/12/2020 COMPARISON: None HISTORY: Pre op for mitral valve surgery, tooth decay CT DLP: 457.5 mGycm Automated exposure control for dose reduction was used. TECHNIQUE: CT scan of the sinuses is performed without contrast, axial images are obtained, coronal r eformatted images are also reviewed. FINDINGS: There are no remaining maxillary teeth. The floors of the maxillary sinuses are intact with no eviden ce of erosion. The maxillary sinuses are clear. The remaining frontal mandibular teeth demonstrate di ffuse periapical lucency of up to 2 mm, and multiple teeth with dental caries. No adjacent sclerosis of the mandibular bone. The paranasal sinuses including the frontal, ethmoid, sphenoid, and maxillary sinuses bilaterally ar e well-aerated without abnormal opacification. The ostiomeatal complex is patent bilaterally on the coronal images. Visualized portion of mastoid air cells show no abnormal opacification. The globes are grossly symme tric. IMPRESSION: The remaining frontal mandibular teeth demonstrate diffuse periapical lucencies up to 2 mm, likely ti ny periapical abscesses, and multiple dental caries.
[2020-06-12] MEDS: ESCITALOPRAM 10 MG TAB PO SCH (20:36)
[2020-06-12] MEDS: traZODone HCL 100 MG TAB PO SCH (20:36)
[2020-06-13 06:39] LABS: African American GFR (CKD) >90 (>60 ml/min/1.73 sqM); Anion Gap 5 mmol/L; Blood Urea Nitrogen 10 mg/dL (7-17); Calcium 8.3 mg/dL (8.4-10.2); Carbon Dioxide 24 mmol/L (22-30); Chloride 107 mmol/L (98-107); Glucose 86 mg/dL (74-99); Non-African American GFR(CKD) >90 (>60 ml/min/1.73 sqM); Potassium 4.1 mmol/L (3.5-5.1); Sodium 136 mmol/L (137-145)
[2020-06-13] MEDS: clonazePAM 0.5 MG TAB PO SCH ×2 (09:27→21:59)
[2020-06-13] MEDS: FUROSEMIDE 40 MG TAB PO SCH (09:27)
[2020-06-13] MEDS: ENOXAPARIN 40 MG/0.4 ML SYRINGE SQ SCH (09:27)
[2020-06-13] MEDS: SODIUM CHLORIDE 0.9% 1,000 ML IV SCH (10:40)
--- NOTE | 2020-06-13 11:31 | P.PN ---
Subjective Progress Note Date: 06/13/20 No new complaints. Ongoing pre-operative work up prior to scheduling elective mitral valve repair. PFTs pending. Dental evaluation due today. Objective - Vital Signs Vital signs: Vital Signs Temp 98.9 F 06/13/20 09:00 Pulse 79 06/13/20 09:00 Resp 18 06/13/20 09:00 BP 114/64 06/13/20 09:00 Pulse Ox 97 06/13/20 09:00 Intake & Output 06/12/20 06/13/20 06/13/20 18:59 06:59 18:59 Intake Total 1000 120 Balance 1000 120 Weight 82.6 kg Intake: IV 100 Intake, IV Titration 300 Amount Sodium Chloride 0.9% 1, 300 000 ml @ 100 mls/hr IV . Q10H KOKI Rx#:[id number] Oral 600 120 Other: Voiding Method Toilet # Voids 2 1 - Exam Gen: awake, alert HEENT: normocephalic, atraumatic, good hearing acuity, moist mucous membranes Resp: Bilateral posterior crackles, good air exchange, adequate lung expansion, no accessory muscle use CVS: Regular rhythm, normal rate, loud crescendo/decrescendo murmur GI: soft, NTTP, mildly distended : no SPT, no CVAT, hernandez catheter not present MSK: no pitting edema, no clubbing Neuro: non-focal, no sensory deficits, appropriate tone Psych: cooperative, euthymic mood - Labs CBC & Chem 7: 06/10/20 05:31 06/13/20 05:51 Labs: Abnormal Lab Results - Last 24 Hours (Table) 06/13/20 Range/Units 05:51 Sodium 136 L (137-145) mmol/L Calcium 8.3 L (8.4-10.2) mg/dL Microbiology - Last 24 Hours (Table) 06/09/20 16:52 Blood Culture - Preliminary Blood No Growth after 72 hours Assessment and Plan Assessment: 1. Congestive heart failure exacerbation 2. Anxiety and depression 3. Hypertension, essential 4. ADHD 5. Crohn's disease next 45-year-old woman with past medical history of Crohn's disease, ADHD, hypertension, anxiety/depression presented with several weeks of increasing chills, muscle aches, with new onset dyspnea on exertion and orthopnea and was found to have elevated BNP, where chest x-ray concerning for newly diagnosed heart failure exacerbation. Plan: #HF exacerbation - I/Os, daily weights - f/u echo = significant valvular disease, grade II diastolic dysfunction + pulm HTN - cardiology c/s, s/p SHELBY/RHC/LHC - CT surgery following --> Dental evaluation pending today, PFTs completed - lasix 40mg IV daily --> lasix 40mg PO BID - BCx, NGTD - Procalcitonin = 0.11, ESR/CRP = 20/24.3, - TSH, A1c, Lipid Panel = 2.25, 4.7, HDL/LDL/TG = 71/113/90 - monitor on telemetry = no events overnight Chronic Medical Conditions: #Anxiety/Depression #HTN #ADHD #Crohn's - continue home meds as per med rec Full Code is DPOA DVT PPx: early ambulation + enoxaparin 40mg SQ
[2020-06-13] MEDS: ACETAMINOPHEN TAB 325 MG TAB PO PRN ×2 (11:37→17:39)
[2020-06-13] MEDS: CYCLOBENZAPRINE 5 MG TAB PO PRN (11:37)
[2020-06-13] MEDS ORDERED: CLINDAMYCIN 600 MG in DEXTROSE 5% IN WATER 50 ML IVPB STA ×2 (11:46)
--- NOTE | 2020-06-13 12:34 | CDI ---
Documentation Clarification Form Date: 06/12/2020 08:53:00 AM From: Susan Pineda RN, CCDS Admit Date: 06/11/2020 09:50:00 AM Patient Name: Tabitha Knox Visit Number: [id number] Discharge Date: ATTENTION: The Clinical Documentation Specialists (CDI) and [facility] Coding Staff appreciate your assistance in clarifying documentation. Please respond to the clarification below the line at the bottom and electronically sign. The CDI & [facility] Coding staff will review the response and follow-up if needed. Please note: Queries are made part of the Legal Health Record. If you have any questions, please contact the author of this message via ITS. Dr. Sukhdev Winters CHF is documented in the consult and subsequent progress notes. ECHO results has EF between 55-60 %. Please clarify acuity and type of congestive heart failure History/Risk Factors: Chron's disease, ,ADHD, Hypertension, Rheumatoid Arthritis Clinical Indicators: 45-year-old female present to ED on 06/09 with complaints of muscle ache, generalized weakness, fatigue, chills, increasing dyspnea on exertion, orthopnea for the last sever weeks per ED evaluation. 06/09 Vital signs 05:42: 165/98 101 20 98.9 100 % RA 06/09 Chest x-ray: mild vascular congestion with trace bilateral effusions 06/09 Labs: WBC 11.3 BNP 1030, Troponin < 0.012, 06/09 Echocardiogram Results: Overall left ventricular systolic function is normal with, an EF between 55-60 %. Severe mitral regurgitation is present. There is moderate pulmonary hypertension. Treatment: Lasix 40 mg IV q 12 06/09-06/10, change to 40 po bid 06/10 06/11 SHELBY (Transesophageal Echocardiogram): Left atrial size is dilated. The mitral valve is mildly thickened with mild prolapse of the posterior mitral valve leaflets and severe eccentric mitral regurgitation In your professional opinion, can you please clarify the acuity and type of CHF if known? Acute Systolic Heart Failure: Acute on Chronic Systolic Heart Failure Acute Diastolic Heart Failure: Acute on Chronic Diastolic Heart Failure Acute Systolic & Diastolic Heart Failure Unable to Determine Other, please specify Severe mr XXX (Last Revision: January 2018) MTDD
--- NOTE | 2020-06-13 12:46 | P.GSCN ---
History of Present Illness Consult date: 06/13/20 Reason for Consult: Dental Clearance for heart surgery Past Medical History Past Medical History: Chest Pain / Angina, Fibromyalgia, Hypertension, Memory Impairment, Rheumatoid Arthritis (RA), Syncope Additional Past Medical History / Comment(s): anxiety,depression, irritable bowel, ptsd, crohn's disease. vertigo. hypoglycemia History of Any Multi-Drug Resistant Organisms: None Reported Past Surgical History: No Surgical Hx Reported, Cholecystectomy Additional Past Surgical History / Comment(s): laprascopy 1994 D&C Past Anesthesia/Blood Transfusion Reactions: No Reported Reaction Past Psychological History: ADD/ADHD, Anxiety, Depression, Panic Disorder, PTSD Smoking Status: Never smoker Past Alcohol Use History: None Reported Past Drug Use History: None Reported Additional Drug Use History / Comment(s): Drug screen positive for cannabis, amphetamine - Past Family History Mother Family Medical History: Congestive Heart Failure (CHF) Father Additional Family Medical History / Comment(s): ETOH, unknown history Medications and Allergies Home Medications Medication Instructions Recorded Confirmed Type Loperamide [Imodium] 2 mg PO TID PRN 12/22/15 06/09/20 History clonazePAM [KlonoPIN] 0.5 mg PO BID 02/03/18 06/09/20 History traZODone HCL 150 mg PO HS 02/03/18 06/09/20 History Acetaminophen [Tylenol Extra 1,000 mg PO Q6H PRN 06/09/20 06/09/20 History Strength] Cranberry Fruit Extract [Cranberry] 500 mg PO DAILY 06/09/20 06/09/20 History Dextroamphetamine/Amphetamine 20 mg PO BID 06/09/20 06/09/20 History [Adderall] Escitalopram Oxalate [Lexapro] 10 mg PO HS 06/09/20 06/09/20 History Nitrofurantoin Monohyd/M-Cryst 100 mg PO BID 06/09/20 06/09/20 History [Macrobid] Allergies Allergy/AdvReac Type Severity Reaction Status Date / Time latex Allergy Unknown Verified 06/09/20 12:31 Penicillins Allergy Unknown Verified 06/09/20 12:31 prochlorperazine edisylate Allergy Unknown Verified 06/09/20 12:31 [From Compazine] prochlorperazine maleate Allergy Unknown Verified 06/09/20 12:31 [From Compazine] Surgical - Exam Vital Signs Temp Pulse Resp BP Pulse Ox 98.9 F 101 H 20 165/98 100 06/09/20 05:42 06/09/20 05:42 06/09/20 05:42 06/09/20 05:42 06/09/20 05:42 Examination revealed multiple mandibular teeth with periapical radiolucencies requiring extractions prior to heart surgery. Results Patient had retained root tips #28, 27, 26, 25, 24, 23, 22, 21 with perioapical radiolucencies requiring extractions. Anesthetic: 5 carpules Citanest plain local infiltration on buccal and lingual. -21-Simple EXT -22-Sipmle EXT -23-Siples EXT -24-Simple EXT -25-Simple EXT -26-Simple EXT -27-Simple EXT -28-Simple EXT Gauze placed under pressure. Pt tolerated procedure well. Pt is cleared dentally for heart surgery - Labs 06/10/20 05:31 06/13/20 05:51 Abnormal Lab Results - Last 24 Hours (Table) 06/13/20 Range/Units 05:51 Sodium 136 L (137-145) mmol/L Calcium 8.3 L (8.4-10.2) mg/dL Microbiology - Last 24 Hours (Table) 06/09/20 16:52 Blood Culture - Preliminary Blood No Growth after 72 hours Diabetes panel 06/13/20 Range/Units 05:51 Sodium 136 L (137-145) mmol/L Potassium 4.1 (3.5-5.1) mmol/L Chloride 107 (98-107) mmol/L Carbon Dioxide 24 (22-30) mmol/L BUN 10 (7-17) mg/dL Creatinine 0.60 (0.52-1.04) mg/dL Glucose 86 (74-99) mg/dL Calcium 8.3 L (8.4-10.2) mg/dL Calcium panel 06/13/20 Range/Units 05:51 Calcium 8.3 L (8.4-10.2) mg/dL Pituitary panel 06/13/20 Range/Units 05:51 Sodium 136 L (137-145) mmol/L Potassium 4.1 (3.5-5.1) mmol/L Chloride 107 (98-107) mmol/L Carbon Dioxide 24 (22-30) mmol/L BUN 10 (7-17) mg/dL Creatinine 0.60 (0.52-1.04) mg/dL Glucose 86 (74-99) mg/dL Calcium 8.3 L (8.4-10.2) mg/dL Adrenal panel 06/13/20 Range/Units 05:51 Sodium 136 L (137-145) mmol/L Potassium 4.1 (3.5-5.1) mmol/L Chloride 107 (98-107) mmol/L Carbon Dioxide 24 (22-30) mmol/L BUN 10 (7-17) mg/dL Creatinine 0.60 (0.52-1.04) mg/dL Glucose 86 (74-99) mg/dL Calcium 8.3 L (8.4-10.2) mg/dL
--- NOTE | 2020-06-13 14:04 | P.PN ---
<Awilda Soto - Last Filed: 06/13/20 14:03> Subjective Progress Note Date: 06/13/20 CHIEF COMPLAINT: Mitral regurg HISTORY OF PRESENT ILLNESS: Patient underwent cardiac cath yesterday revealing severe mitral regurgitation. Cardiothoracic surgery was consulted for further e valuation. They are recommending patient to undergo elective mitral valve repair. She is agreeable to proceed. She denies chest pain or shortness of breath. BP 114/64. HR 70s PHYSICAL EXAM: VITAL SIGNS: Reviewed. GENERAL: Well-developed in no acute distress. NECK: Supple. No JVD or thyromegaly LUNGS: Respirations even and unlabored. Lungs essentially clear to auscultation bilaterally. HEART: Regular rate and rhythm. S1 and S2 heard. Systolic murmur. EXTREMITIES: Normal range of motion. No clubbing or cyanosis. Peripheral pulses intact. No lower extremity edema ASSESSMENT: 1. Severe mitral regurgitation 2. Hypertension PLAN: -Continue current cardiac medications -Patient to undergo elective mitral valve repair with cardiothoracic surgery. Timing to be determined by CTS. Nurse practitioner note has been reviewed by physician. Signing provider agrees with the documented findings, assessment, and plan of care. Objective - Vital Signs Vital signs: Vital Signs Temp 98.9 F 06/13/20 09:00 Pulse 79 06/13/20 09:00 Resp 18 06/13/20 09:00 BP 114/64 06/13/20 09:00 Pulse Ox 97 06/13/20 09:00 Intake & Output 06/12/20 06/13/20 06/13/20 18:59 06:59 18:59 Intake Total 1000 120 Balance 1000 120 Weight 82.6 kg Intake: IV 100 Intake, IV Titration 300 Amount Sodium Chloride 0.9% 1, 300 000 ml @ 100 mls/hr IV . Q10H [facility] Rx#:[id number] Oral 600 120 Other: Voiding Method Toilet # Voids 2 1 - Labs CBC & Chem 7: 06/10/20 05:31 06/13/20 05:51 Labs: Abnormal Lab Results - Last 24 Hours (Table) 06/13/20 Range/Units 05:51 Sodium 136 L (137-145) mmol/L Calcium 8.3 L (8.4-10.2) mg/dL Microbiology - Last 24 Hours (Table) 06/09/20 16:52 Blood Culture - Preliminary Blood No Growth after 72 hours <Shiva Mittal - Last Filed: 06/13/20 16:14> Subjective Patient had teeth pulled this afternoon and report of an underlying infection and was placed on antibiotics. SHELBY with severe mitral regurgitation she is eccentric and heart catheterization showing normal coronary arteries. We will continue to monitor and await further recommendations from cardiothoracic surgery. Objective - Vital Signs Vital signs: Vital Signs Temp 98.9 F 06/13/20 09:00 Pulse 79 06/13/20 09:00 Resp 18 06/13/20 09:00 BP 114/64 06/13/20 09:00 Pulse Ox 97 06/13/20 09:00 Intake & Output 06/12/20 06/13/20 06/13/20 18:59 06:59 18:59 Intake Total 1000 120 Balance 1000 120 Weight 82.6 kg Intake: IV 100 Intake, IV Titration 300 Amount Sodium Chloride 0.9% 1, 300 000 ml @ 100 mls/hr IV . Q10H [facility] Rx#:[id number] Oral 600 120 Other: Voiding Method Toilet # Voids 2 1 - Labs CBC & Chem 7: 06/10/20 05:31 06/13/20 05:51 Labs: Abnormal Lab Results - Last 24 Hours (Table) 06/13/20 Range/Units 05:51 Sodium 136 L (137-145) mmol/L Calcium 8.3 L (8.4-10.2) mg/dL Microbiology - Last 24 Hours (Table) 06/09/20 16:52 Blood Culture - Preliminary Blood No Growth after 72 hours
--- NOTE | 2020-06-13 14:32 | P.PN ---
Subjective Progress Note Date: 06/13/20 Principal diagnosis: Severe mitral regurgitation. Previous medical history of hypertension, Crohn's disease, anxiety/depression, ADHD, rheumatoid arthritis, PTSD. Patient's currently laying in bed in no acute distress. Denies any chest pain or shortness of breath. She was seen yesterday by Dr. Powell and recommendations were made for mitral valve repair. Preoperative testing was initiated. Consultation was placed for dentist for dental clearance. All questions were answered. No new concerns Objective - Vital Signs Vital signs: Vital Signs Temp 98.9 F 06/13/20 09:00 Pulse 79 06/13/20 09:00 Resp 18 06/13/20 09:00 BP 114/64 06/13/20 09:00 Pulse Ox 97 06/13/20 09:00 Intake & Output 06/12/20 06/13/20 06/13/20 18:59 06:59 18:59 Intake Total 1000 120 Balance 1000 120 Weight 82.6 kg Intake: IV 100 Intake, IV Titration 300 Amount Sodium Chloride 0.9% 1, 300 000 ml @ 100 mls/hr IV . Q10H [facility] Rx#:[id number] Oral 600 120 Other: Voiding Method Toilet # Voids 2 1 - Constitutional General appearance: Present: cooperative, no acute distress - Respiratory Details: Lungs clear to auscultation. Respirations equal and symmetrical, in no acute distress. Currently on room air with oxygen saturation 97%. Able to achieve 3000 mL on incentive spirometry. - Cardiovascular Details: S1/soft S2, systolic murmur noted. Regular rate and rhythm, NSR on telemetry. Palpable peripheral pulses bilaterally. No edema present. - Gastrointestinal Gastrointestinal Comment(s): Abdomen soft, nontender, nondistended. Active bowel sounds present 4 quadrants. Tolerating diet. - Genitourinary Genitourinary Comment(s): Continues to void - Integumentary Integumentary Comment(s): Skin is dry with evidence of good perfusion - Neurologic Neurologic: Present: CNII-XII intact - Musculoskeletal Musculoskeletal: Present: gait normal, strength equal bilaterally - Psychiatric Psychiatric: Present: A&O x's 3, appropriate affect, intact judgment & insight - Allied health notes Allied health notes reviewed: nursing - Labs CBC & Chem 7: 06/10/20 05:31 06/13/20 05:51 Labs: Abnormal Lab Results - Last 24 Hours (Table) 06/13/20 Range/Units 05:51 Sodium 136 L (137-145) mmol/L Calcium 8.3 L (8.4-10.2) mg/dL Microbiology - Last 24 Hours (Table) 06/09/20 16:52 Blood Culture - Preliminary Blood No Growth after 72 hours Assessment and Plan Assessment: 1. Severe mitral regurgitation with an EF of 55-60% 2. History of hypertension 3. History Crohn's disease 4. History anxiety/depression 5. History of ADHD 6. History of PTSD 7. History of rheumatoid arthritis 9. History of cholecystectomy Plan: 1. Our plan is for elective mitral valve repair, possible replacement, date to be determined 2. Patient had 8 retained root extractions today by dentist, patient is cleared for mitral valve surgery 3. Continue to encourage incentive spirometry use 4. Increase activity, ambulate as tolerated 5. We will calculate STS risk score and discussed with the patient 6. Medical management of other comorbidities per primary care service. 7. More recommendations to follow Time with Patient: Greater than 30
[2020-06-13] MEDS: MORPHINE SULFATE 2 MG/ML SYRINGE IVP PRN ×2 (15:23→20:21)
[2020-06-13] MEDS: ESCITALOPRAM 10 MG TAB PO SCH (21:59)
[2020-06-13] MEDS: traZODone HCL 100 MG TAB PO SCH (22:00)
[2020-06-13] MEDS: HYDROcodone/APAP 5-325MG 1 EACH TAB PO PRN (22:00)
[2020-06-14] MEDS: MORPHINE SULFATE 2 MG/ML SYRINGE IVP PRN ×2 (01:56→08:44)
[2020-06-14] MEDS: HYDROcodone/APAP 5-325MG 1 EACH TAB PO PRN ×3 (03:32→13:43)
[2020-06-14] MEDS: CYCLOBENZAPRINE 5 MG TAB PO PRN ×2 (03:32→13:43)
[2020-06-14] MEDS: SODIUM CHLORIDE 0.9% 1,000 ML IV SCH ×3 (08:36→13:00)
[2020-06-14] MEDS: FUROSEMIDE 40 MG TAB PO SCH ×2 (08:37→08:45)
[2020-06-14] MEDS: ENOXAPARIN 40 MG/0.4 ML SYRINGE SQ SCH (08:45)
[2020-06-14] MEDS: clonazePAM 0.5 MG TAB PO SCH (08:45)
--- NOTE | 2020-06-14 11:25 | P.DS ---
Providers Date of admission: 06/11/20 09:50 Attending physician: Nellie Dale MD Consults: 06/09/20 09:03 Consult Physician Stat Consulting Provider: Sukhdev Winters Consult Reason/Comments: Pleural effusion Do you want consulting provider notified?: Yes 06/12/20 08:39 Consult Physician Routine Consulting Provider: Agustin Powell Consult Reason/Comments: mvr Do you want consulting provider notified?: Already Contacted 06/13/20 06:48 Consult Physician Routine Consulting Provider: Bronwyn Barrett Consult Reason/Comments: dental clearance for mitral valve surgery Do you want consulting provider notified?: Yes Primary care physician: Stated None Hospital Course: 1. Congestive heart failure exacerbation secondary to severe Mitral Regurgitation. 2. Anxiety and depression 3. Hypertension, essential 4. ADHD 5. Crohn's disease next 45-year-old woman with past medical history of Crohn's disease, ADHD, hypertension, anxiety/depression presented with several weeks of increasing chills, muscle aches, with new onset dyspnea on exertion and orthopnea and was found to have elevated BNP, where chest x-ray concerning for newly diagnosed heart failure exacerbation. Echo demonstrated significant valvular disease, grade II diastolic dysfunction + pulm HTN. Cardiology was consulted for severe MR shown on SHELBY. She underwent LHC/RHC, PFTs, dental clearance. Evaluated by CT surgery for mitral valve repair, and will be scheduled for this on an outpatient basis. Had several teeth pulled for preparation for surgery. She was volume optimized and transitioned to PO diuretics. She was given short script for PO narcotics for dental pain. Remainder of outpatient care regarding mitral valve will be coordinated via CT surgery, appreciate their help. Pt will follow up with PCP and cardiology as well. I spent more than 30 minutes coordinating this discharge. Patient Condition at Discharge: Stable Plan - Discharge Summary Discharge Rx Participant: No New Discharge Prescriptions: New Cyclobenzaprine [Flexeril] 5 mg PO TID PRN #30 tab PRN Reason: Muscle Spasm Furosemide [Lasix] 40 mg PO DAILY #30 tab Nitroglycerin Sl Tabs [Nitrostat] 0.4 mg SUBLINGUAL Q5M PRN #30 tab PRN Reason: Chest Pain HYDROcodone/APAP 5-325MG [[place] 5-325] 1 each PO Q4HR PRN #18 tab PRN Reason: Pain Continue Loperamide [Imodium] 2 mg PO TID PRN PRN Reason: Diarrhea traZODone HCL 150 mg PO HS clonazePAM [KlonoPIN] 0.5 mg PO BID Acetaminophen [Tylenol Extra Strength] 1,000 mg PO Q6H PRN PRN Reason: Pain Escitalopram Oxalate [Lexapro] 10 mg PO HS Cranberry Fruit Extract [Cranberry] 500 mg PO DAILY Discontinued Nitrofurantoin Monohyd/M-Cryst [Macrobid] 100 mg PO BID Dextroamphetamine/Amphetamine [Adderall] 20 mg PO BID Discharge Medication List Loperamide [Imodium] 2 mg PO TID PRN 12/22/15 [History] clonazePAM [KlonoPIN] 0.5 mg PO BID 02/03/18 [History] traZODone HCL 150 mg PO HS 02/03/18 [History] Acetaminophen [Tylenol Extra Strength] 1,000 mg PO Q6H PRN 06/09/20 [History] Cranberry Fruit Extract [Cranberry] 500 mg PO DAILY 06/09/20 [History] Escitalopram Oxalate [Lexapro] 10 mg PO HS 06/09/20 [History] Cyclobenzaprine [Flexeril] 5 mg PO TID PRN #30 tab 06/14/20 [Rx] Furosemide [Lasix] 40 mg PO DAILY #30 tab 06/14/20 [Rx] HYDROcodone/APAP 5-325MG [[place]ona 5-325] 1 each PO Q4HR PRN #18 tab 06/14/20 [Rx] Nitroglycerin Sl Tabs [Nitrostat] 0.4 mg SUBLINGUAL Q5M PRN #30 tab 06/14/20 [Rx] Follow up Appointment(s)/Referral(s): Agustin Powell MD [STAFF PHYSICIAN] - 06/21/20 (Plan is for Mitral valve repair, possible replacement on 06/21/[address] Powell. The OR will call the day before to tell you what time to be at the hospital) None,Stated [Primary Care Provider] - 1-2 days
--- NOTE | 2020-06-14 11:25 | P.PN ---
Subjective Progress Note Date: 06/14/20 Principal diagnosis: Severe mitral regurgitation. Previous medical history of hypertension, Crohn's disease, anxiety/depression, ADHD, rheumatoid arthritis, PTSD. Patient's currently laying in bed in no acute distress. Denies any chest pain or shortness of breath. She was seen today by Dr. Powell and recommendations were made for mitral valve repair next week now that she has dental clearance. All questions were answered. No new concerns Objective - Vital Signs Vital signs: Vital Signs Temp 97.9 F 06/14/20 03:56 Pulse 79 06/14/20 03:56 Resp 18 06/14/20 03:56 BP 126/77 06/14/20 03:56 Pulse Ox 96 06/14/20 03:56 Intake & Output 06/13/20 06/14/20 06/14/20 18:59 06:59 18:59 Intake Total 370 236 Balance 370 236 Weight 82.7 kg Intake: Intake, IV Titration 50 Amount Clindamycin 600 mg In 50 Dextrose 5% in Water 50 ml @ 50 mls/hr IVPB [facility] Rx#:[id number] Oral 320 236 Other: Voiding Method Toilet # Voids 1 1 - Constitutional General appearance: Present: cooperative, no acute distress - Respiratory Details: Lungs clear to auscultation. Respirations equal and symmetrical, in no acute distress. Currently on room air with oxygen saturation 96%. Able to achieve 3000 mL on incentive spirometry. - Cardiovascular Details: S1/soft S2, systolic murmur noted. Regular rate and rhythm, NSR on telemetry. Palpable peripheral pulses bilaterally. No edema present. - Gastrointestinal Gastrointestinal Comment(s): Abdomen soft, nontender, nondistended. Active bowel sounds present 4 quadrants. Tolerating diet. - Genitourinary Genitourinary Comment(s): Continues to void - Integumentary Integumentary Comment(s): Skin is dry with evidence of good perfusion - Neurologic Neurologic: Present: CNII-XII intact - Musculoskeletal Musculoskeletal: Present: gait normal, strength equal bilaterally - Psychiatric Psychiatric: Present: A&O x's 3, appropriate affect, intact judgment & insight - Allied health notes Allied health notes reviewed: nursing - Labs CBC & Chem 7: 06/10/20 05:31 06/13/20 05:51 Labs: Microbiology - Last 24 Hours (Table) 06/09/20 16:52 Blood Culture - Preliminary Blood No Growth after 96 hours Assessment and Plan Assessment: 1. Severe mitral regurgitation with an EF of 55-60% 2. History of hypertension 3. History Crohn's disease 4. History anxiety/depression 5. History of ADHD 6. History of PTSD 7. History of rheumatoid arthritis 9. History of cholecystectomy Plan: 1. Our plan is for elective mitral valve repair, possible replacement next June 21 Dr. Powell. This was discussed with the patient and she is in agreement 2. Patient had 8 retained root extractions yesterday by dentist, patient is cleared for mitral valve surgery 3. Continue to encourage incentive spirometry use 4. Increase activity, ambulate as tolerated 5. STS risk score calculated and discussed with the patient 6. Medical management of other comorbidities per primary care service. 7. Patient may be discharged home from cardiothoracic surgery standpoint to return next week for elective surgery Time with Patient: Greater than 30
[2020-06-14 12:57] VITALS: BP 104/76; PULSE 77; TEMP 98.8
== END 2020-06-14 14:12 | disposition home or self-care (01) | DRG 287 ==
LOC: EC 05:37 → 3SCARD 09:03 → OBSVTOIN 06-11 09:50
PROVIDERS: ADMIT Internal Medicine; ATTEND Internal Medicine
PROC: B24BZZ4 Ultrasonography of Heart with Aorta, Transesophageal (ICD-10-PCS; 2020-06-11)
PROC: B2111ZZ Fluoroscopy of Multiple Coronary Arteries using Low Osmolar Contrast (ICD-10-PCS; 2020-06-12)
PROC: 4A023N6 Measurement of Cardiac Sampling and Pressure, Right Heart, Percutaneous Approach (ICD-10-PCS; principal; 2020-06-12 07:30)
PROC: 0CDXXZ1 Extraction of Lower Tooth, Multiple, External Approach (ICD-10-PCS; 2020-06-13)
DX: I11.0 Hypertensive heart disease with heart failure (principal); N39.0 Urinary tract infection, site not specified; K50.90 Crohn's disease, unspecified, without complications; I50.33 Acute on chronic diastolic (congestive) heart failure; I27.20 Pulmonary hypertension, unspecified; M06.9 Rheumatoid arthritis, unspecified; Z20.828 Contact with and (suspected) exposure to other viral communicable diseases; I08.3 Combined rheumatic disorders of mitral, aortic and tricuspid valves; M79.7 Fibromyalgia; F32.9 Major depressive disorder, single episode, unspecified; F41.0 Panic disorder [episodic paroxysmal anxiety]; F43.10 Post-traumatic stress disorder, unspecified; K58.9 Irritable bowel syndrome, unspecified; F90.9 Attention-deficit hyperactivity disorder, unspecified type; K08.3 Retained dental root; K08.9 Disorder of teeth and supporting structures, unspecified; K08.89 Other specified disorders of teeth and supporting structures; Z79.899 Other long term (current) drug therapy; Z90.49 Acquired absence of other specified parts of digestive tract; Z87.42 Personal history of other diseases of the female genital tract; Z98.890 Other specified postprocedural states; Z62.810 Personal history of physical and sexual abuse in childhood; Z88.0 Allergy status to penicillin; Z88.8 Allergy status to other drugs, medicaments and biological substances; Z91.040 Latex allergy status; Z82.49 Family history of ischemic heart disease and other diseases of the circulatory system
CPT/HCPCS: 36415; 70486; 71046; 80048; 80053; 80061; 80074; 80306; 81001; 82810; 83036; 83735; 83880; 84145; 84443; 84484; 85018; 85025; 85610; 85652; 85730; 86140; 86850; 86900; 86901; 86920; 87040; 87070; 93005; 93306; 93312; 93320; 93325; 93460; 93880; 94150; 94640; 99285

== ENCOUNTER 2020-06-21 05:32 | Inpatient (IN) | payer BC ==
[2020-06-14 20:07] LABS: Hepatitis A Antibody IgM Non-Reactive (Non-Reactive); Hepatitis B Core IgM Non-Reactive (Non-Reactive); Hepatitis B Surface Antigen Non-Reactive (Non-Reactive); Hepatitis C IgG Antibody Non-Reactive (Non-Reactive)
[~2020-06-21 05:32] MED LIST: ALBUMIN HUMAN 25% 50 ML IV ONE; ASPIRIN 325 MG TAB PO ONE; ATORVASTATIN 10 MG TAB PO ONE; CALCIUM CHLORIDE 100 MG/ML 10 ML SYRINGE IV ONE; CARDIOPLEGIC SOLN (K+ 16 MEQ/L 1,000 ML with SODIUM BICARB (1 MEQ/ML) 20 ML, LIDOCAINE ... PERFUSION ONE; CHLORHEXIDINE GLUCONATE 15 ML CUP MUCOUS MEM ONE; CLEVIDIPINE BUTYRATE 25 MG in EMPTY BAG 1 BAG IV ONE; HEPARIN SODIUM 1,000 UN/ML (10ML VL) IV ONE; HEPARIN SODIUM,PORCINE 5,000 UNIT in SODIUM CHLORIDE 0.9% 500 ML 500 ML IV ONE; INSULIN REGULAR 100 UNIT in SODIUM CHLORIDE 0.9% 100 ML IV ONE; LACTATED RINGERS 1,000 ML IV ONE; MAGNESIUM SULFATE MG 500 MG/ML IV ONE; MANNITOL 25% 12.5 GM/50 ML VIAL IV ONE; METOPROLOL TARTRATE 12.5 MG TAB PO ONE; NITROGLYCERIN-D5W PMX 25 MG/250 ML BTL IV ONE; NITROGLYCERIN-D5W PMX 50 MG in DEXTROSE/WATER 1 250ML.BAG IV ONE; NOREPINEPHRINE 4 MG in SODIUM CHLORIDE 0.9% 250 ML IV ONE; PHENYLEPHRINE 10 MG/ML VIAL IV ONE; PHENYLEPHRINE 40 MG in SODIUM CHLORIDE 0.9% 250 ML IV ONE; PROTAMINE SULFATE 10 MG/ML 25 ML VIAL IV ONE; PROTAMINE SULFATE 250 MG in EMPTY BAG 1 BAG IV ONE; SODIUM BICARB 8.4% 50 ML SYR (1 MEQ/ML) IV ONE; SODIUM CHLORIDE 0.9% 1,000 ML IV ONE; TRANEXAMIC ACID 2,000 MG in SODIUM CHLORIDE 0.9% 80 ML IV ONE; VANCOMYCIN 1,000 MG in SODIUM CHLORIDE 0.9% IRRIGATIO 1,000 ML IRRIGATION ONE; VANCOMYCIN 1,250 MG in SODIUM CHLORIDE 0.9% 100 ML IVPB ONE; propofoL 1,000 MG/100 ML VIAL IV ONE
[2020-06-21] MEDS ORDERED: LACTATED RINGERS 1,000 ML IV ONE (06:01)
[2020-06-21 06:13] LABS: Glucose,Whole Blood 89 mg/dL (75-99)
--- NOTE | 2020-06-21 06:24 | P.PN ---
Progress Note - Text Progress Note Date: 06/21/20 5 meter walk test completed: #1 3.37 sec #2 3.44 sec #3 3.64 sec Patient tolerated well without chest pain or shortness of breath
[2020-06-21] MEDS ORDERED: POTASSIUM CHLORIDE OPEN HEART 20 MEQ/50 ML BAG IVPB ONE (07:24)
[2020-06-21] MEDS ORDERED: PROPOFOL 10 MG/ML 20 ML VIAL IV ONE (07:24)
[2020-06-21] MEDS ORDERED: HEPARIN SODIUM,PORCINE 5,000 UNIT/ML 1 ML VIAL ONE (07:24)
[2020-06-21] MEDS ORDERED: LIDOCAINE 2% SYG (PF) 100 MG/5 ML ONE (07:24)
[2020-06-21] MEDS ORDERED: PROTAMINE SULFATE 10 MG/ML 25 ML VIAL IV ONE (07:24)
[2020-06-21] MEDS ORDERED: SODIUM CHLORIDE 0.9% IRRIG 1,000 ML BTL IRRIGATION ONE (07:24)
[2020-06-21] MEDS ORDERED: fentaNYL (PF) 50 MCG/ML 2 ML AMP ONE (07:24)
[2020-06-21] MEDS ORDERED: ELECTROLYTE-R (PH 7.4) 1,000 ML IV.SOLN IV ONE (07:24)
[2020-06-21] MEDS ORDERED: SODIUM CHLORIDE 0.9% 250 ML BAG ONE (07:24)
[2020-06-21] MEDS ORDERED: VECURONIUM 10 MG VIAL IV ONE (07:24)
[2020-06-21] MEDS ORDERED: HEPARIN SODIUM,PORCINE 10,000 UNIT/ML 1 ML VIAL ONE (07:24)
[2020-06-21] MEDS ORDERED: fentaNYL (PF) 50 MCG/ML 50 ML VIAL ONE (07:24)
[2020-06-21] MEDS ORDERED: TRANEXAMIC ACID 1,000 MG/10 ML VIAL ONE (07:24)
[2020-06-21] MEDS ORDERED: MIDAZOLAM 2 MG/2 ML VIAL ONE (07:24)
[2020-06-21 08:12] LABS: ABG Base Excess -0.9 mmol/L; ABG Glucose Whole Blood 86 mg/dL (75-99); ABG HCO3 23 mmol/L (21-25); ABG Hematocrit 35 % (34.0-46.0); ABG Ionized Calcium 4.5 mg/dL (4.5-5.3); ABG Lactic Acid Whole Blood 1.6 mmol/L (0.5-1.6); ABG PCO2 36 mmHg (35-45); ABG PH 7.42 (7.35-7.45); ABG Potassium Whole Blood 3.9 mmol/L (3.4-4.5); ABG Sodium Whole Blood 139 mmol/L (135-146); ABG TCO2 24 mmol/L (19-24)
[2020-06-21 09:08] LABS: ABG Glucose Whole Blood 112 mg/dL (75-99); ABG HCO3 23 mmol/L (21-25); ABG Hematocrit 35 % (34.0-46.0); ABG Ionized Calcium 4.4 mg/dL (4.5-5.3); ABG Lactic Acid Whole Blood 1.8 mmol/L (0.5-1.6); ABG Oxygen Saturation 99.8 % (94-97); ABG PCO2 40 mmHg (35-45); ABG PH 7.37 (7.35-7.45); ABG PO2 224 mmHg (83-108); ABG Potassium Whole Blood 4.2 mmol/L (3.4-4.5); ABG Sodium Whole Blood 137 mmol/L (135-146); ABG TCO2 24 mmol/L (19-24)
[2020-06-21] MEDS ORDERED: SODIUM CHLORIDE 0.9% 500 ML 500 ML with HEPARIN SODIUM,PORCINE 5,000 UNIT IV ONE ×2 (09:08)
[2020-06-21] MEDS ORDERED: ceFAZolin 1,000 MG in SODIUM CHLORIDE 0.9% 1,000 ML IRRIGATION ONE (09:10)
[2020-06-21 09:44] LABS: ABG Base Excess -4.5 mmol/L; ABG Glucose Whole Blood 108 mg/dL (75-99); ABG HCO3 22 mmol/L (21-25); ABG Hematocrit 26 % (34.0-46.0); ABG Ionized Calcium 4.3 mg/dL (4.5-5.3); ABG Lactic Acid Whole Blood 1.6 mmol/L (0.5-1.6); ABG PCO2 45 mmHg (35-45); ABG PO2 379 mmHg (83-108); ABG Potassium Whole Blood 4.7 mmol/L (3.4-4.5); ABG Sodium Whole Blood 136 mmol/L (135-146); ABG TCO2 23 mmol/L (19-24)
[2020-06-21 10:17] LABS: ABG Glucose Whole Blood 132 mg/dL (75-99); ABG HCO3 24 mmol/L (21-25); ABG Hematocrit 26 % (34.0-46.0); ABG Ionized Calcium 4.1 mg/dL (4.5-5.3); ABG Lactic Acid Whole Blood 1.8 mmol/L (0.5-1.6); ABG Oxygen Saturation 99.9 % (94-97); ABG PCO2 48 mmHg (35-45); ABG PO2 338 mmHg (83-108); ABG Potassium Whole Blood 4.1 mmol/L (3.4-4.5); ABG Sodium Whole Blood 136 mmol/L (135-146); ABG TCO2 25 mmol/L (19-24)
[2020-06-21 10:25] LABS: ABG Base Excess 2.8 mmol/L; ABG Glucose Whole Blood 141 mg/dL (75-99); ABG HCO3 28 mmol/L (21-25); ABG Hematocrit 27 % (34.0-46.0); ABG Lactic Acid Whole Blood 1.8 mmol/L (0.5-1.6); ABG PCO2 43 mmHg (35-45); ABG PH 7.42 (7.35-7.45); ABG PO2 363 mmHg (83-108); ABG Potassium Whole Blood 4.5 mmol/L (3.4-4.5); ABG Sodium Whole Blood 140 mmol/L (135-146); ABG TCO2 29 mmol/L (19-24)
[2020-06-21] MEDS ORDERED: CYCLOBENZAPRINE 5 MG TAB PO PRN (10:50)
[2020-06-21] MEDS ORDERED: VANCOMYCIN 1,000 MG in SODIUM CHLORIDE 0.9% IRRIGATIO 1,000 ML IRRIGATION ONE (11:18)
[2020-06-21 11:21] LABS: ABG Base Excess -1.5 mmol/L; ABG Glucose Whole Blood 117 mg/dL (75-99); ABG HCO3 24 mmol/L (21-25); ABG Hematocrit 31 % (34.0-46.0); ABG Ionized Calcium 4.3 mg/dL (4.5-5.3); ABG Oxygen Saturation 99.4 % (94-97); ABG PCO2 42 mmHg (35-45); ABG PH 7.36 (7.35-7.45); ABG PO2 190 mmHg (83-108); ABG Potassium Whole Blood 3.8 mmol/L (3.4-4.5); ABG Sodium Whole Blood 139 mmol/L (135-146); ABG TCO2 25 mmol/L (19-24)
[2020-06-21 11:46] LABS: ABG PO2 >420 mmHg (83-108)
[2020-06-21] MEDS ORDERED: INSULIN REGULAR 100 UNIT in SODIUM CHLORIDE 0.9% 100 ML IV SCH (11:52)
[2020-06-21] MEDS ORDERED: DEXTROSE 5% IN WATER 100 ML with AMIODARONE 150 MG IV PRN (11:52)
[2020-06-21] MEDS ORDERED: METOCLOPRAMIDE 5 MG/ML 2 ML VIAL IVP PRN (11:52)
[2020-06-21] MEDS ORDERED: BENZOCAINE/MENTHOL LOZENG 1 EACH LOZENGE MUCOUS MEM PRN (11:52)
[2020-06-21] MEDS ORDERED: VANCOMYCIN IV PER PHARMACY 1 EACH MISC MISCELLANE PRN (11:52)
[2020-06-21] MEDS ORDERED: AMIODARONE 300 MG in DEXTROSE 5% IN WATER 250 ML IV PRN ×2 (11:52)
[2020-06-21] MEDS ORDERED: hydrALAZINE HCL 20 MG/ML 1 ML VIAL IVP PRN (11:52)
[2020-06-21] MEDS ORDERED: CLEVIDIPINE BUTYRATE 25 MG in EMPTY BAG 1 BAG IV SCH (11:52)
[2020-06-21] MEDS ORDERED: DEXMEDETOMIDINE/0.9% NACL(PMX) 400 MCG in EMPTY BAG 1 BAG IV SCH (11:52)
[2020-06-21] MEDS ORDERED: Potassium Replacement Protocol 1 EACH MISC MISCELLANE PRN (11:52)
[2020-06-21] MEDS ORDERED: Magnesium Replacement Protocol 1 EACH MISC MISCELLANE PRN (11:52)
[2020-06-21] MEDS ORDERED: IPRATROPIUM-ALBUTEROL 3 ML NEB INHALATION PRN (11:52)
[2020-06-21] MEDS ORDERED: Phosphorus Replacement Protoco 1 EACH MISC MISCELLANE PRN (11:52)
[2020-06-21] MEDS ORDERED: AMIODARONE 360 MG in DEXTROSE 5% IN WATER 200 ML IV PRN ×2 (11:52)
--- NOTE | 2020-06-21 11:52 | P.ANPRN ---
Procedure Note - Anesthesia - Invasive Line Right Central Line Time Out Performed: Yes (704) Date of Procedure: 06/21/20 Time of Procedure: 07:05 Location of Patient: PreOp Preparation: Sterile Prep Arterial Line Location: Radial Ultrasound Used: Yes Purpose - Visualization and Identification of Vasculature: Yes Needle Guage: 18g ang Image Stored and Saved: Yes Narrative: Central line placement per sterile protocol utilized. + local + angio +CVP +j wire + uneventful introduction and dilation right IJ cordis. Free flow. Nonpulsitile. Right [place] Time Out Performed: Yes (704) Date of Procedure: 06/21/20 Time of Procedure: 07:15 Location of Patient: PreOp Preparation: Sterile Prep Arterial Line Location: Radial Ultrasound Used: No Purpose - Visualization and Identification of Vasculature: No Image Stored and Saved: No Narrative: Central line placement per sterile protocol utilized. [place] floated sterile fashion in sheath to PA @ 46 cm no wedge.
[2020-06-21] MEDS: IPRATROPIUM-ALBUTEROL 3 ML NEB INHALATION SCH ×4 (12:00→19:47)
--- NOTE | 2020-06-21 12:11 | P.OP ---
Date of Procedure: 06/21/20 Preoperative Diagnosis: Mitral regurgitation Postoperative Diagnosis: Same Procedure(s) Performed: Mitral valve replacement with a 25/33 mm On-X mechanical mitral valve, ligation of the left atrial appendage, epi-aortic ultrasonography Implants: 25/33 mm On-X mechanical mitral valve prosthesis Anesthesia: GETA Surgeon: Agustin Powell Etiquette Teacher #1: Fab Napier Etiquette Teacher #2: Gordo Page Estimated Blood Loss (ml): 100 IV fluids (ml): 1,500 Urine output (ml): 500 Pathology: other (Mitral valve) Condition: stable Disposition: ICU Indications for Procedure: 45-year-old female who presents with heart failure and shortness of breath. She was treated for heart failure. She was noted to have severe mitral regurgitation. This appeared to be central with a slightly eccentric jet however the exact etiology of the mitral regurgitation cannot be precisely determined by either surface or transesophageal echocardiography. Ventricular function was good. Cardiac catheterization demonstrated normal coronary arteries. Mitral valve repair versus replacement was recommended and the patient was scheduled electively. Operative Findings: Heart was of normal size. Examining the mitral valve, it was immediately evident that the leaflets were markedly thickened and the chordae were severely thickened and shortened with fusion of the leaflets basically directly to the papillary muscles a large amount of scar tissue. This was consistent with rheumatic valvular heart disease. We therefore decided to replace the valve. Postoperative SHELBY demonstrated excellent function of the mitral valve with no evidence of obstruction of the left ventricular outflow tract and only trivial aortic valve regurgitation. The aortic valve leaflets themselves appeared fairly supple. There was no evidence of aortic stenosis. Ventricular function was good. Description of Procedure: The patient was brought to the operating room, placed supine on the operating table, anesthetized and intubated. T probe was placed. Again we couldn't demonstrate central slightly eccentric severe mitral regurgitation with out o bvious etiology. Ventricular function was good. The aortic valve had mild regurgitation preoperatively. The anterior torso and lower extremities were sterilely prepped and draped in standard fashion. After appropriate timeout midline sternotomy was performed. Bilateral pleural spaces were opened. The pericardium was opened in the midline. Patient was systemically heparinized. The heart was exposed with pericardial sutures. Epi-aortic ultrasonography was performed in the ascending aorta appeared normal. Patient was cannulated for cardiopulmonary bypass with a 7 mm soft flow cannula in the distal ascending aorta, 36 straight venous cannula through the right atrial appendage into the inferior vena cava and a 30 right angle cannula superior vena cava antegrade and retrograde cardioplegia lines were placed in standard fashion. The patient was placed on court-appointed bypass and stabilized. The interatrial groove was developed. The aorta was crossclamped and the heart arrested with cold crystalloid antegrade cardioplegia followed by retrograde cardioplegia. Left atrium was opened through the interatrial groove and the mitral valve was exposed with the [place] retractor. The left atrial appendage was oversewn from within the left atrium using a 2 layer running closure of 3-0 Prolene. Excellent fit examined the mitral valve. It was clearly a rheumatic valve. The valve was excised. Circumferential valve sutures of pledgeted 2-0 Tycron were placed with the pledgets on the ventricular side. The annulus was sized and a 27 mm sizer passed fairly easily. We chose a 25/33 On-X valve. This was brought up onto the field. Valve sutures were placed through the sewing cuff of the next valve and the valve was seated without difficulty. Valve sutures were tied and cut. The valve was noted to seat well. The leaflets moved easily without obstruction. We now proceeded with closure of the left atrium with a running single layer 3-0 Prolene closure. On completion of the closure the atrium was de-aired and the suture was tied. The cross-clamp was removed. Patient returned to a spontaneous sinus rhythm. Atrial and ventricular pacing wires were placed but not used. The inferior vena caval cannula was pulled back into the left atrium the superior vena caval cannula removed. The left ventricle was de-aired under SHELBY guidance with a 16 Angiocath in the apex of the left ventricle. Following this, the aortic vent line was removed and site reinforced with a 40 pledgeted Prolene suture. Patient was weaned from cardioplegic bypass without the use of inotropic support. She easily. Heparin was reversed with protamine and the heart decannulated in standard fashion. The aortic cannulation site was reinforced with a 4 pledgeted Prolene suture. Bilateral pleural spaces were drained with 32-[place] chest tubes in the mediastinum with a 36-[place] chest tube. Which we assured good hemostasis the mediastinum was irrigated with antibiotic solution. The pericardium was tacked closed in the midline. The sternum was closed with 8 sternal wires. 3 double wires were used in the sternal body. Fascia was closed with 0 Ethibond suture. Continue subcuticular layers were closed with layers of Vicryl suture. Dry sterile dressings were applied and the patient was transferred to the CVICU in stable hemodynamic condition on no inotropic agents. She did not receive any blood transfusions of banked blood or blood products.
[2020-06-21 12:18] LABS: Glucose,Whole Blood 102 mg/dL (75-99)
[2020-06-21 12:36] LABS: Basophils % (A) 0 %; Eosinophils # (A) 0.1 k/uL (0-0.7); Eosinophils % (A) 0 %; HCT 34.3 % (34.0-46.0); HGB 11.1 gm/dL (11.4-16.0); Lymphocytes # (A) 1.4 k/uL (1.0-4.8); Lymphocytes % (A) 8 %; MCH 29.9 pg (25.0-35.0); MCHC 32.4 g/dL (31.0-37.0); MCV 92.3 fL (80.0-100.0); Mean Platelet Volume 7.2; Monocytes # (A) 0.7 k/uL (0-1.0); Monocytes % (A) 4 %; Neutrophils # (A) 15.7 k/uL (1.3-7.7); Neutrophils % (A) 87 %; Platelet Count 164 k/uL (150-450); RBC 3.72 m/uL (3.80-5.40); RDW 13.4 % (11.5-15.5)
[2020-06-21 12:41] LABS: ABG Base Excess -0.2 mmol/L; ABG HCO3 27 mmol/L (21-25); ABG Oxygen Saturation 99.4 % (94-97); ABG PCO2 59 mmHg (35-45); ABG PH 7.27 (7.35-7.45); ABG PO2 >400 mmHg (83-108); ABG TCO2 29 mmol/L (19-24); Allen Test Performed? Yes
[2020-06-21 12:44] LABS: INR 1.1 (<1.2); Partial Thromboplastin Time 29.4 sec (22.0-30.0); Prothrombin Time 11.4 sec (9.0-12.0)
[2020-06-21 12:45] LABS: Ionized Calcium 4.7 mg/dL (4.5-5.3)
[2020-06-21 12:55] LABS: ALT 143 U/L (4-34); AST 363 U/L (14-36); African American GFR (CKD) >90 (>60 ml/min/1.73 sqM); Albumin 2.6 g/dL (3.5-5.0); Alkaline Phosphatase 54 U/L (38-126); Anion Gap 4 mmol/L; Blood Urea Nitrogen 12 mg/dL (7-17); Calcium 7.8 mg/dL (8.4-10.2); Carbon Dioxide 24 mmol/L (22-30); Chloride 108 mmol/L (98-107); Glucose 102 mg/dL (74-99); Magnesium 3.1 mg/dL (1.6-2.3); Non-African American GFR(CKD) >90 (>60 ml/min/1.73 sqM); Potassium 4.8 mmol/L (3.5-5.1); Sodium 136 mmol/L (137-145); Total Bilirubin 1.1 mg/dL (0.2-1.3); Total Protein 4.9 g/dL (6.3-8.2)
--- NOTE | 2020-06-21 13:04 | XR ---
EXAMINATION TYPE: XR chest 1V portable DATE OF EXAM: 06/21/2020 Comparison: 06/09/2020 Clinical History: 45-year-old female Post Operative Cardiac Surgery Findings: Satisfactory ET and NG tubes. Median sternotomy wires are present with an prosthetic cardiac valve. M ediastinal drain is demonstrated with bilateral chest tubes. Right IJ [place] catheter with tip in the proximal right main pulmonary artery. Unable to exclude a trace 4 mm right apical pneumothorax. Some strandy atelectasis in the mid and low er lungs. No pleural effusion. Heart normal size. Impression: Bilateral chest tubes. Postoperative changes with strandy bibasilar atelectasis. Unable to exclude a trace 4 mm right apical pneumothorax.
[2020-06-21 13:05] LABS: Glucose,Whole Blood 109 mg/dL (75-99)
[2020-06-21] MEDS: LACTATED RINGERS 1,000 ML IV SCH (13:21)
[2020-06-21] MEDS ORDERED: KETOROLAC 15 MG/ML 1 ML VIAL IM SCH (13:30)
[2020-06-21] MEDS: ALBUMIN HUMAN 5% 250 ML in EMPTY BAG 1 BAG IVPB PRN ×3 (13:48→23:38)
[2020-06-21 14:12] LABS: Glucose,Whole Blood 132 mg/dL (75-99)
--- NOTE | 2020-06-21 14:41 | P.CNPUL ---
History of Present Illness Consult date: 06/21/20 Requesting physician: Agustin Powell Chief complaint: Mitral regurgitation, CHF History of present illness: 45-year-old white female patient, who was recently hospitalized from 06/09/2020 through 06/14/2020 and the patient presented to the emergency department for evaluation of progressive shortness of breath, orthopnea and her evaluation revealed elevated proBNP, chest x-ray showed congestive heart failure, echocard iogram demonstrated significant valvular disease, grade 2 diastolic dysfunction and pulmonary hypertension with right-sided pressures of 52 mmHg. Cardiology was consulted, transesophageal echocardiogram showed severe mitral regurgitation, cardiac catheterization showed normal coronary arteries. Patient was a volume optimized and transitioned to oral diuretics, CT surgery was consulted for mitral valve repair surgery. On 06/21/2020 patient had mitral valve replacement with a 25/33 mm On-X mechanical mitral valve, ligation of the left atrial appendage, appendectomy aortic ultrasonography. She was seen in the postoperative period in the intensive care unit, sedated, on mechanical ventilator, with current vent settings of SIMV mode of ventilation with a rate of 12, tidal volume of 400, FiO2 of 100%, and PEEP of 5, postoperative blood gases showed pO2 of greater than 400, pCO2 59, and pH of 7.26. Hemodynamically patient is very stable, [address], mediastinal chest tube with 100 mL of saline was output, left pleural and right pleural chest tubes with the 30 mL of sanguinous output. His rhythm on the monitor, AV wires connected to external pacemaker with the backup rate of 50, on DDD mode. PA pressures 20/7, CVP is 4, cardiac output is 4.0, cardiac index is 2.0. Lactated Ringer's at a rate of 50, Diprivan infusing only at a rate of 10 mics per kilo per minute, and is currently off. Postoperative blood work shows white blood cell count of 18.0, hemoglobin of 11.1, sodium is 136, potassium is 4.8, chloride is 108, BUN is 12 creatinine 0.47, AST is 363, ALT of 143. Postoperative chest x-ray shows bilateral chest tubes, postoperative changes with straining bibasilar atelectasis and trace 4 mm right apical pneumothorax. Review of Systems All systems: negative Constitutional: Denies chills, Denies fever Eyes: denies blurred vision, denies pain Ears, nose, mouth and throat: Denies headache, Denies sore throat Cardiovascular: Denies chest pain, Denies shortness of breath Respiratory: Reports dyspnea, Denies cough Gastrointestinal: Denies abdominal pain, Denies diarrhea, Denies nausea, Denies vomiting Genitourinary: Denies dysuria, Denies hematuria Musculoskeletal: Denies myalgias Integumentary: Denies pruritus, Denies rash Neurological: Denies numbness, Denies weakness Psychiatric: Denies anxiety, Denies depression Endocrine: Denies fatigue, Denies weight change Past Medical History Past Medical History: Chest Pain / Angina, Fibromyalgia, Hypertension, Memory Impairment, Rheumatoid Arthritis (RA), Syncope Additional Past Medical History / Comment(s): irritable bowel, crohn's disease, vertigo, hypoglycemia History of Any Multi-Drug Resistant Organisms: None Reported Past Surgical History: Cholecystectomy, Heart Catheterization Additional Past Surgical History / Comment(s): laparoscopy 1994, D&C, colonoscopies Past Anesthesia/Blood Transfusion Reactions: No Reported Reaction Additional Past Anesthesia/Blood Transfusion Reaction / Comment(s): slow to wake up @times Smoking Status: Never smoker - Past Family History Mother Family Medical History: Congestive Heart Failure (CHF) Father Additional Family Medical History / Comment(s): ETOH, unknown history Medications and Allergies Home Medications Medication Instructions Recorded Confirmed Type Loperamide [Imodium] 2 mg PO TID PRN 12/22/15 06/19/20 History clonazePAM [KlonoPIN] 0.5 mg PO BID 02/03/18 06/19/20 History traZODone HCL 150 mg PO HS 02/03/18 06/19/20 History Acetaminophen [Tylenol Extra 1,000 mg PO Q6H PRN 06/09/20 06/19/20 History Strength] Cranberry Fruit Extract [Cranberry] 500 mg PO DAILY 06/09/20 06/19/20 History Escitalopram Oxalate [Lexapro] 10 mg PO HS 06/09/20 06/19/20 History Cyclobenzaprine [Flexeril] 5 mg PO TID PRN #30 tab 06/14/20 06/19/20 Rx Furosemide [Lasix] 40 mg PO DAILY #30 tab 06/14/20 06/19/20 Rx Nitroglycerin Sl Tabs [Nitrostat] 0.4 mg SUBLINGUAL Q5M PRN #30 tab 06/14/20 06/19/20 Rx Allergies Allergy/AdvReac Type Severity Reaction Status Date / Time latex Allergy Rash/Hives Verified 06/19/20 10:23 Penicillins Allergy Anaphylaxis Verified 06/19/20 10:23 prochlorperazine edisylate Allergy Anaphylaxis Verified 06/19/20 10:23 [From Compazine] prochlorperazine maleate Allergy Anaphylaxis Verified 06/19/20 10:23 [From Compazine] Physical Exam Vitals: Vital Signs Temp Pulse Pulse Resp BP BP Pulse Ox 06/21/20 13:45 74 16 98 06/21/20 13:30 76 18 97 06/21/20 13:15 74 18 82 L 06/21/20 13:00 70 12 100 06/21/20 12:45 70 12 100 06/21/20 12:30 96.8 F L 67 12 100 06/21/20 12:20 64 12 100 06/21/20 06:01 99.8 F H 82 18 112/77 112/78 99 Intake and Output 06/20/20 06/21/20 06/21/20 22:59 06:59 14:59 Intake Total 108.226 Output Total 150 Balance -41.774 Intake: IV 3 Intake, IV Titration 105.226 Amount Lactated Ringers 1,000 ml 100 @ 50 mls/hr IV .Q20H [facility] Rx#:[id number] propofoL 1,000 mg In 5.226 Empty Bag 1 bag @ Titrate IV .Q0M [facility] Rx#: [id number] Output: Chest Tube Drainage 70 Chest Tube Bilateral 5 Chest Tube Mediastinal 65 Urine 80 Other: Weight 87.1 kg ABP, PAP, CO, CI - Last 8 Hours Arterial Blood Pressure 114/68 Arterial Blood Pressure 131/79 Arterial Blood Pressure 134/77 Arterial Blood Pressure 116/66 Arterial Blood Pressure 121/69 Arterial Blood Pressure 138/80 Arterial Blood Pressure 130/78 Pulmonary Artery Pressure 20/7 Pulmonary Artery Pressure 22/9 Pulmonary Artery Pressure 27/9 Pulmonary Artery Pressure 30/13 Pulmonary Artery Pressure 29/14 Pulmonary Artery Pressure 27/13 Pulmonary Artery Pressure 31/18 Cardiac Output 4.0 Cardiac Index 2.0 GENERAL EXAM: Sedated 45 -year-old white female, intubated, sedated, on SIMV mode of ventilation, with FiO2 at 50%, comfortable in no apparent distress. HEAD: Normocephalic/atraumatic. EYES: Normal reaction of pupils, equal size. Conjunctiva pink, sclera white. NOSE: Clear with pink turbinates. THROAT: No erythema or exudates. NECK: No masses, no JVD, no thyroid enlargement, no adenopathy. CHEST: No chest wall deformity. Symmetrical expansion. Midsternal incision is clean dry and intact, 3 chest tubes, one mediastinal, right and left pleural, AV wires connected to the external pacemaker box, with backup rate of 50, with the DDD mode LUNGS: Equal air entry with no crackles, wheeze, rhonchi or dullness. CVS: Regular rate and rhythm, normal S1 and S2, no gallops, no murmurs, no rubs ABDOMEN: Soft, nontender. No hepatosplenomegaly, normal bowel sounds, no guarding or rigidity. EXTREMITIES: No clubbing, no edema, no cyanosis, 2+ pulses and upper and lower extremities. MUSCULOSKELETAL: Muscle strength and tone normal. SPINE: No scoliosis or deformity SKIN: No rashes CENTRAL NERVOUS SYSTEM: No focal deficits, tone is normal in all 4 extremities. Results - Laboratory Findings CBC and BMP: 06/21/20 12:15 06/21/20 12:15 ABG ABG pH 7.27 (7.35-7.45) L 06/21/20 12:35 ABG pCO2 59 mmHg (35-45) H 06/21/20 12:35 ABG pO2 >400 mmHg (83-108) H 06/21/20 12:35 ABG O2 Saturation 99.4 % (94-97) H 06/21/20 12:35 PT/INR, D-dimer PT 11.4 sec (9.0-12.0) 06/21/20 12:15 INR 1.1 (<1.2) 06/21/20 12:15 Abnormal lab findings: Abnormal Labs 06/14/20 06/21/20 06/21/20 10:59 08:18 09:12 WBC RBC Hgb Neutrophils # ABG pH ABG pCO2 ABG pO2 >420 H 224 H ABG HCO3 ABG Total CO2 ABG O2 Saturation 100.0 H 99.8 H ABG Hematocrit ABG Potassium ABG Ionized Calcium 4.4 L ABG Glucose 112 H ABG Lactic Acid 1.8 H Hemoglobin 11.2 L Sodium Chloride Creatinine Glucose POC Glucose (mg/dL) Calcium Magnesium AST ALT Total Protein Albumin Arterial Blood Potassium Arterial Blood Glucose 112 H Crossmatch See Detail 06/21/20 06/21/20 06/21/20 09:48 10:21 10:29 WBC RBC Hgb Neutrophils # ABG pH 7.30 L 7.30 L ABG pCO2 48 H ABG pO2 379 H 338 H 363 H ABG HCO3 28 H ABG Total CO2 25 H 29 H ABG O2 Saturation 100.0 H 99.9 H 100.0 H ABG Hematocrit 26 L 26 L 27 L ABG Potassium 4.7 H ABG Ionized Calcium 4.3 L 4.1 L 4.0 L ABG Glucose 108 H 132 H 141 H ABG Lactic Acid 1.8 H 1.8 H Hemoglobin 8.5 L 8.4 L 8.7 L Sodium Chloride Creatinine Glucose POC Glucose (mg/dL) Calcium Magnesium AST ALT Total Protein Albumin Arterial Blood Potassium 4.7 H Arterial Blood Glucose 108 H 132 H 141 H Crossmatch 06/21/20 06/21/20 06/21/20 11:25 12:15 12:15 WBC 18.0 H RBC 3.72 L Hgb 11.1 L Neutrophils # 15.7 H ABG pH ABG pCO2 ABG pO2 190 H ABG HCO3 ABG Total CO2 25 H ABG O2 Saturation 99.4 H ABG Hematocrit 31 L ABG Potassium ABG Ionized Calcium 4.3 L ABG Glucose 117 H ABG Lactic Acid 2.0 H Hemoglobin 10.1 L Sodium Chloride Creatinine Glucose POC Glucose (mg/dL) 102 H Calcium Magnesium AST ALT Total Protein Albumin Arterial Blood Potassium Arterial Blood Glucose 117 H Crossmatch 06/21/20 06/21/20 06/21/20 12:15 12:35 13:03 WBC RBC Hgb Neutrophils # ABG pH 7.27 L ABG pCO2 59 H ABG pO2 >400 H ABG HCO3 27 H ABG Total CO2 29 H ABG O2 Saturation 99.4 H ABG Hematocrit ABG Potassium ABG Ionized Calcium ABG Glucose ABG Lactic Acid Hemoglobin Sodium 136 L Chloride 108 H Creatinine 0.47 L Glucose 102 H POC Glucose (mg/dL) 109 H Calcium 7.8 L Magnesium 3.1 H AST 363 H ALT 143 H Total Protein 4.9 L Albumin 2.6 L Arterial Blood Potassium Arterial Blood Glucose Crossmatch - Diagnostic Findings Chest x-ray: report reviewed, image reviewed Assessment and Plan Plan: Assessment: #1. Severe mitral valve regurgitation, CHF, with diastolic dysfunction, status post mitral valve replacement, ligation of the left atrial appendage, and AP aortic ultrasonography, postoperative day 0, OR exit time at 1212 #2. Routine postoperative ventilator management #3. Leukocytosis, possibly reactive #4. Recent hospitalization for acute exacerbation of CHF secondary to severe mitral regurgitation, and diastolic dysfunction #5. Straight of anxiety and depression #6. Essential hypertension #7. History of Crohn's disease #8. ADHD #9. History of pulmonary hypertension likely related to valvular heart disease Plan: Hemodynamically patient is stable, no significant bleeding from the chest tubes, not on any vasoactive drips, wean FiO2 per protocol, patient is waking up, she started to follow commands, chest x-ray has been reviewed, postoperative gas has been reviewed. Once the patient is more awake, we'll proceed with spontaneous breathing trials, Incentive spirometry to the bedside after extubation, breathing treatments as needed after extubation, 4 times a day while on the ventilator. Maintain pain control, GI and DVT prophylaxis per CT surgery, daily chest x-ray daily lab work. Close hemodynamic monitoring, monitor for arrhythmias. I performed a history & physical examination of the patient and discussed their management with my nurse practitioner, Silva Pepper. I reviewed the nurse practitioner's note and agree with the documented findings and plan of care. Lung sounds are positive for clear breath sounds. The findings and the impression was discussed with the patient. I attest to the documentation by the nurse practitioner. Time with Patient: Greater than 30
[2020-06-21 14:54] LABS: Glucose,Whole Blood 140 mg/dL (75-99)
[2020-06-21] MEDS: KETOROLAC 15 MG/ML 1 ML VIAL IVP SCH ×2 (14:55→20:12)
[2020-06-21 16:12] LABS: Glucose,Whole Blood 145 mg/dL (75-99)
[2020-06-21 16:32] LABS: ABG Base Excess -1.9 mmol/L; ABG HCO3 24 mmol/L (21-25); ABG PCO2 45 mmHg (35-45); ABG PH 7.33 (7.35-7.45); ABG PO2 168 mmHg (83-108); ABG TCO2 25 mmol/L (19-24); Allen Test Performed? Yes
[2020-06-21 17:04] LABS: Glucose,Whole Blood 133 mg/dL (75-99)
--- NOTE | 2020-06-21 17:26 | P.CONS ---
History of Present Illness - Reason for Consult Consult date: 06/21/20 crohn's disease, fibromyalgia Requesting physician: Agustin Powell - Chief Complaint mitral regurg - History of Present Illness Patient is a 45-year-old female with a history of hypertension, fibromyalgia, rheumatoid arthritis, IBS, and severe mitral regurgitation who presented to the hospital for mitral valve replacement. She was recently hospitalized here from 06/09/2020 - 06/14/2020 secondary to acute congestive heart failure. During that evaluation she was found to have severe mitral regurgitation, and normal coronary arteries on cath. Subsequently they've planned for mitral valve replacement. On 06/21/2020 she underwent mitral valve replacement, ligation of the last atrial appendage, and epi-aortic US. She was subsequently admitted to the ICU. She is intubated, sedated, with mediastinal and chest tubes in place. Patient seen and examined at bedside. Propofol was recently turned off and she is guarding to wake up and is minimally responsive. She is requiring some albumin secondary to elevated liver enzymes. Vital signs have been stable. Urine output good. Due to patient being sedated all information is obtained from prior hospitali zation from 06/09-06/14/2020. Review of Systems ROS unobtainable: due to endotracheal tube Past Medical History Past Medical History: Chest Pain / Angina, Fibromyalgia, Hypertension, Memory Impairment, Rheumatoid Arthritis (RA), Syncope Additional Past Medical History / Comment(s): irritable bowel, crohn's disease, vertigo, hypoglycemia History of Any Multi-Drug Resistant Organisms: None Reported Past Surgical History: Cholecystectomy, Heart Catheterization Additional Past Surgical History / Comment(s): laparoscopy 1994, D&C, colonoscopies Past Anesthesia/Blood Transfusion Reactions: No Reported Reaction Additional Past Anesthesia/Blood Transfusion Reaction / Comm: slow to wake up @times Smoking Status: Never smoker - Past Family History Mother Family Medical History: Congestive Heart Failure (CHF) Father Additional Family Medical History / Comment(s): ETOH, unknown history Medications and Allergies Home Medications Medication Instructions Recorded Confirmed Type Loperamide [Imodium] 2 mg PO TID PRN 12/22/15 06/19/20 History clonazePAM [KlonoPIN] 0.5 mg PO BID 02/03/18 06/19/20 History traZODone HCL 150 mg PO HS 02/03/18 06/19/20 History Acetaminophen [Tylenol Extra 1,000 mg PO Q6H PRN 06/09/20 06/19/20 History Strength] Cranberry Fruit Extract [Cranberry] 500 mg PO DAILY 06/09/20 06/19/20 History Escitalopram Oxalate [Lexapro] 10 mg PO HS 06/09/20 06/19/20 History Cyclobenzaprine [Flexeril] 5 mg PO TID PRN #30 tab 06/14/20 06/19/20 Rx Furosemide [Lasix] 40 mg PO DAILY #30 tab 06/14/20 06/19/20 Rx Nitroglycerin Sl Tabs [Nitrostat] 0.4 mg SUBLINGUAL Q5M PRN #30 tab 06/14/20 06/19/20 Rx Allergies Allergy/AdvReac Type Severity Reaction Status Date / Time latex Allergy Rash/Hives Verified 06/19/20 10:23 Penicillins Allergy Anaphylaxis Verified 06/19/20 10:23 prochlorperazine edisylate Allergy Anaphylaxis Verified 06/19/20 10:23 [From Compazine] prochlorperazine maleate Allergy Anaphylaxis Verified 06/19/20 10:23 [From Compazine] Physical Exam Osteopathic Statement: *. No significant issues noted on an osteopathic structural exam other than those noted in the History and Physical/Consult. Vitals: Vital Signs Temp Pulse Pulse Resp BP BP Pulse Ox 06/21/20 17:00 75 17 99 06/21/20 16:30 74 13 98 06/21/20 16:00 98.4 F 72 13 98 06/21/20 15:30 98.4 F 74 22 98 06/21/20 15:12 74 06/21/20 15:00 74 16 99 06/21/20 14:30 73 18 99 06/21/20 14:00 97.2 F L 72 16 100 06/21/20 13:45 74 16 98 06/21/20 13:30 76 18 97 06/21/20 13:15 74 18 82 L 06/21/20 13:00 70 12 100 06/21/20 12:45 70 12 100 06/21/20 12:30 96.8 F L 67 12 100 06/21/20 12:20 64 12 100 06/21/20 06:01 99.8 F H 82 18 112/77 112/78 99 Intake and Output 06/21/20 06/21/20 06/21/20 06:59 14:59 22:59 Intake Total 408.226 150 Output Total 395 365 Balance 13.226 -215 Intake: IV 3 Intake, IV Titration 405.226 150 Amount Albumin Human 5% 250 ml 250 In Empty Bag 1 bag @ 250 mls/hr IVPB Q1HR PRN Rx#: [id number] Lactated Ringers 1,000 ml 150 150 @ 50 mls/hr IV .Q20H [facility] Rx#:[id number] propofoL 1,000 mg In 5.226 Empty Bag 1 bag @ Titrate IV .Q0M [facility] Rx#: [id number] Output: Chest Tube Drainage 160 95 Chest Tube Bilateral 40 45 Chest Tube Mediastinal 120 50 Urine 235 270 Other: Voiding Method Indwelling Catheter Indwelling Catheter Weight 87.1 kg ABP, PAP, CO, CI - Last 8 Hours Arterial Blood Pressure 117/68 Arterial Blood Pressure 122/118 Arterial Blood Pressure 92/57 Arterial Blood Pressure 117/73 Arterial Blood Pressure 134/79 Arterial Blood Pressure 132/76 Arterial Blood Pressure 109/71 Arterial Blood Pressure 114/68 Arterial Blood Pressure 131/79 Arterial Blood Pressure 134/77 Arterial Blood Pressure 116/66 Arterial Blood Pressure 121/69 Arterial Blood Pressure 138/80 Arterial Blood Pressure 130/78 Pulmonary Artery Pressure 19/6 Pulmonary Artery Pressure 24/8 Pulmonary Artery Pressure 22/9 Pulmonary Artery Pressure 21/10 Pulmonary Artery Pressure 26/10 Pulmonary Artery Pressure 28/11 Pulmonary Artery Pressure 19/10 Pulmonary Artery Pressure 20/7 Pulmonary Artery Pressure 22/9 Pulmonary Artery Pressure 27/9 Pulmonary Artery Pressure 30/13 Pulmonary Artery Pressure 29/14 Pulmonary Artery Pressure 27/13 Pulmonary Artery Pressure 31/18 Cardiac Output 4.7 Cardiac Output 5.0 Cardiac Output 4.0 Cardiac Index 2.4 Cardiac Index 2.5 Cardiac Index 2.0 General: non toxic, mod distress, appears at stated age Derm: warm, dry Head: atraumatic, normocephalic, symmetric Eyes: EOMI, no lid lag, anicteric sclera, pupils equal round reactive to light ENT: Nose and ears atraumatic, no thrush, Neck: No thyromegaly, no cervical lymphadenopathy, trachea midline, supple Mouth: no lip lesion, mucus membranes dry, ET tube in place Cardiovascular: S1S2 reg, no murmur, no edema, capillary refill less than 2 seconds Lungs: course bs b/l, no wheeze, no accessory muscle use, Mediastinal and Chest tubes Abdominal: soft, nontender to palpation, no guarding, no appreciable organomegaly, normal bowel sounds Ext: b/l LE ACEI wraps, no gross muscle atrophy, no contractures Neuro: Moving all extremities independently. Psych: sedated on vent Results CBC & Chem 7: 06/21/20 12:15 06/21/20 12:15 Labs: Abnormal Lab Results - Last 24 Hours (Table) 06/14/20 06/21/20 06/21/20 Range/Units 10:59 08:18 09:12 WBC (3.8-10.6) k/uL RBC (3.80-5.40) m/uL Hgb (11.4-16.0) gm/dL Neutrophils # (1.3-7.7) k/uL ABG pH (7.35-7.45) ABG pCO2 (35-45) mmHg ABG pO2 >420 H 224 H (83-108) mmHg ABG HCO3 (21-25) mmol/L ABG Total CO2 (19-24) mmol/L ABG O2 Saturation 100.0 H 99.8 H (94-97) % ABG Hematocrit (34.0-46.0) % ABG Potassium (3.4-4.5) mmol/L ABG Ionized Calcium 4.4 L (4.5-5.3) mg/dL ABG Glucose 112 H (75-99) mg/dL ABG Lactic Acid 1.8 H (0.5-1.6) mmol/L Hemoglobin 11.2 L (11.4-16.0) gm/dL Sodium (137-145) mmol/L Chloride (98-107) mmol/L Creatinine (0.52-1.04) mg/dL Glucose (74-99) mg/dL POC Glucose (mg/dL) (75-99) mg/dL Calcium (8.4-10.2) mg/dL Magnesium (1.6-2.3) mg/dL AST (14-36) U/L ALT (4-34) U/L Total Protein (6.3-8.2) g/dL Albumin (3.5-5.0) g/dL Arterial Blood Potassium (3.4-4.5) mmol/L Arterial Blood Glucose 112 H (75-99) mg/dL Crossmatch See Detail 06/21/20 06/21/20 06/21/20 Range/Units 09:48 10:21 10:29 WBC (3.8-10.6) k/uL RBC (3.80-5.40) m/uL Hgb (11.4-16.0) gm/dL Neutrophils # (1.3-7.7) k/uL ABG pH 7.30 L 7.30 L (7.35-7.45) ABG pCO2 48 H (35-45) mmHg ABG pO2 379 H 338 H 363 H (83-108) mmHg ABG HCO3 28 H (21-25) mmol/L ABG Total CO2 25 H 29 H (19-24) mmol/L ABG O2 Saturation 100.0 H 99.9 H 100.0 H (94-97) % ABG Hematocrit 26 L 26 L 27 L (34.0-46.0) % ABG Potassium 4.7 H (3.4-4.5) mmol/L ABG Ionized Calcium 4.3 L 4.1 L 4.0 L (4.5-5.3) mg/dL ABG Glucose 108 H 132 H 141 H (75-99) mg/dL ABG Lactic Acid 1.8 H 1.8 H (0.5-1.6) mmol/L Hemoglobin 8.5 L 8.4 L 8.7 L (11.4-16.0) gm/dL Sodium (137-145) mmol/L Chloride (98-107) mmol/L Creatinine (0.52-1.04) mg/dL Glucose (74-99) mg/dL POC Glucose (mg/dL) (75-99) mg/dL Calcium (8.4-10.2) mg/dL Magnesium (1.6-2.3) mg/dL AST (14-36) U/L ALT (4-34) U/L Total Protein (6.3-8.2) g/dL Albumin (3.5-5.0) g/dL Arterial Blood Potassium 4.7 H (3.4-4.5) mmol/L Arterial Blood Glucose 108 H 132 H 141 H (75-99) mg/dL Crossmatch 06/21/20 06/21/20 06/21/20 Range/Units 11:25 12:15 12:15 WBC 18.0 H (3.8-10.6) k/uL RBC 3.72 L (3.80-5.40) m/uL Hgb 11.1 L (11.4-16.0) gm/dL Neutrophils # 15.7 H (1.3-7.7) k/uL ABG pH (7.35-7.45) ABG pCO2 (35-45) mmHg ABG pO2 190 H (83-108) mmHg ABG HCO3 (21-25) mmol/L ABG Total CO2 25 H (19-24) mmol/L ABG O2 Saturation 99.4 H (94-97) % ABG Hematocrit 31 L (34.0-46.0) % ABG Potassium (3.4-4.5) mmol/L ABG Ionized Calcium 4.3 L (4.5-5.3) mg/dL ABG Glucose 117 H (75-99) mg/dL ABG Lactic Acid 2.0 H (0.5-1.6) mmol/L Hemoglobin 10.1 L (11.4-16.0) gm/dL Sodium (137-145) mmol/L Chloride (98-107) mmol/L Creatinine (0.52-1.04) mg/dL Glucose (74-99) mg/dL POC Glucose (mg/dL) 102 H (75-99) mg/dL Calcium (8.4-10.2) mg/dL Magnesium (1.6-2.3) mg/dL AST (14-36) U/L ALT (4-34) U/L Total Protein (6.3-8.2) g/dL Albumin (3.5-5.0) g/dL Arterial Blood Potassium (3.4-4.5) mmol/L Arterial Blood Glucose 117 H (75-99) mg/dL Crossmatch 06/21/20 06/21/20 06/21/20 Range/Units 12:15 12:35 13:03 WBC (3.8-10.6) k/uL RBC (3.80-5.40) m/uL Hgb (11.4-16.0) gm/dL Neutrophils # (1.3-7.7) k/uL ABG pH 7.27 L (7.35-7.45) ABG pCO2 59 H (35-45) mmHg ABG pO2 >400 H (83-108) mmHg ABG HCO3 27 H (21-25) mmol/L ABG Total CO2 29 H (19-24) mmol/L ABG O2 Saturation 99.4 H (94-97) % ABG Hematocrit (34.0-46.0) % ABG Potassium (3.4-4.5) mmol/L ABG Ionized Calcium (4.5-5.3) mg/dL ABG Glucose (75-99) mg/dL ABG Lactic Acid (0.5-1.6) mmol/L Hemoglobin (11.4-16.0) gm/dL Sodium 136 L (137-145) mmol/L Chloride 108 H (98-107) mmol/L Creatinine 0.47 L (0.52-1.04) mg/dL Glucose 102 H (74-99) mg/dL POC Glucose (mg/dL) 109 H (75-99) mg/dL Calcium 7.8 L (8.4-10.2) mg/dL Magnesium 3.1 H (1.6-2.3) mg/dL AST 363 H (14-36) U/L ALT 143 H (4-34) U/L Total Protein 4.9 L (6.3-8.2) g/dL Albumin 2.6 L (3.5-5.0) g/dL Arterial Blood Potassium (3.4-4.5) mmol/L Arterial Blood Glucose (75-99) mg/dL Crossmatch 06/21/20 06/21/20 06/21/20 Range/Units 14:11 14:53 15:54 WBC (3.8-10.6) k/uL RBC (3.80-5.40) m/uL Hgb (11.4-16.0) gm/dL Neutrophils # (1.3-7.7) k/uL ABG pH (7.35-7.45) ABG pCO2 (35-45) mmHg ABG pO2 (83-108) mmHg ABG HCO3 (21-25) mmol/L ABG Total CO2 (19-24) mmol/L ABG O2 Saturation (94-97) % ABG Hematocrit (34.0-46.0) % ABG Potassium (3.4-4.5) mmol/L ABG Ionized Calcium (4.5-5.3) mg/dL ABG Glucose (75-99) mg/dL ABG Lactic Acid (0.5-1.6) mmol/L Hemoglobin (11.4-16.0) gm/dL Sodium (137-145) mmol/L Chloride (98-107) mmol/L Creatinine (0.52-1.04) mg/dL Glucose (74-99) mg/dL POC Glucose (mg/dL) 132 H 140 H 145 H (75-99) mg/dL Calcium (8.4-10.2) mg/dL Magnesium (1.6-2.3) mg/dL AST (14-36) U/L ALT (4-34) U/L Total Protein (6.3-8.2) g/dL Albumin (3.5-5.0) g/dL Arterial Blood Potassium (3.4-4.5) mmol/L Arterial Blood Glucose (75-99) mg/dL Crossmatch 06/21/20 06/21/20 Range/Units 16:30 17:02 WBC (3.8-10.6) k/uL RBC (3.80-5.40) m/uL Hgb (11.4-16.0) gm/dL Neutrophils # (1.3-7.7) k/uL ABG pH 7.33 L (7.35-7.45) ABG pCO2 (35-45) mmHg ABG pO2 168 H (83-108) mmHg ABG HCO3 (21-25) mmol/L ABG Total CO2 25 H (19-24) mmol/L ABG O2 Saturation 99.0 H (94-97) % ABG Hematocrit (34.0-46.0) % ABG Potassium (3.4-4.5) mmol/L ABG Ionized Calcium (4.5-5.3) mg/dL ABG Glucose (75-99) mg/dL ABG Lactic Acid (0.5-1.6) mmol/L Hemoglobin (11.4-16.0) gm/dL Sodium (137-145) mmol/L Chloride (98-107) mmol/L Creatinine (0.52-1.04) mg/dL Glucose (74-99) mg/dL POC Glucose (mg/dL) 133 H (75-99) mg/dL Calcium (8.4-10.2) mg/dL Magnesium (1.6-2.3) mg/dL AST (14-36) U/L ALT (4-34) U/L Total Protein (6.3-8.2) g/dL Albumin (3.5-5.0) g/dL Arterial Blood Potassium (3.4-4.5) mmol/L Arterial Blood Glucose (75-99) mg/dL Crossmatch Chest x-ray: report reviewed Assessment and Plan Assessment: Severe mitral regurg s/p replacement- management by CVT Transaminitis - suspect reactive to volume changes - repeat in AM - hepatitis profile is negative Diastolic CHF, EF 55%, pulm HTN - no exacerbated - Metoprolol Leukocytosis - suspect reactive - follow CBC HTN, currently controlled - lopressor - follow BP Fibromyalgia - anticipate this will make pain management more difficult - resume flexaril IBS - not chronically on treatment - As need immodium if needed Anxiety - Klonopin - Lexapro Thank you for allowing us to participate in the care of this pleasant patient. Do not hesitate to contact us with questions. Someone can be reached from the [facility] hospitalist group all hours of the day at [phone] or via perfect serve.
[2020-06-21 18:32] LABS: Glucose,Whole Blood 119 mg/dL (75-99)
[2020-06-21 18:34] LABS: Basophils % (A) 0 %; Eosinophils % (A) 0 %; HCT 32.5 % (34.0-46.0); HGB 10.5 gm/dL (11.4-16.0); Lymphocytes # (A) 0.7 k/uL (1.0-4.8); Lymphocytes % (A) 4 %; MCHC 32.4 g/dL (31.0-37.0); MCV 92.8 fL (80.0-100.0); Mean Platelet Volume 7.6; Monocytes # (A) 0.8 k/uL (0-1.0); Monocytes % (A) 5 %; Neutrophils # (A) 14.8 k/uL (1.3-7.7); Neutrophils % (A) 90 %; Platelet Count 172 k/uL (150-450); RDW 13.4 % (11.5-15.5); WBC 16.4 k/uL (3.8-10.6)
[2020-06-21] MEDS: VANCOMYCIN 1,500 MG in SODIUM CHLORIDE 0.9% 250 ML IVPB SCH (18:38)
[2020-06-21] MEDS: HEPARIN SODIUM,PORCINE 5,000 UNIT/ML 1 ML VIAL SQ SCH (18:38)
[2020-06-21 19:00] LABS: Glucose,Whole Blood 103 mg/dL (75-99)
[2020-06-21 20:10] LABS: Glucose,Whole Blood 125 mg/dL (75-99)
[2020-06-21 20:59] LABS: Glucose,Whole Blood 143 mg/dL (75-99)
[2020-06-21] MEDS: ESCITALOPRAM 10 MG TAB PO SCH (21:01)
[2020-06-21] MEDS: clonazePAM 0.5 MG TAB PO SCH (21:01)
[2020-06-21] MEDS: CYCLOBENZAPRINE 10 MG TAB PO PRN (21:02)
[2020-06-21] MEDS ORDERED: traZODone HCL 50 MG TAB PO ONE (21:24)
[2020-06-21 21:59] LABS: Glucose,Whole Blood 134 mg/dL (75-99)
[2020-06-21] MEDS: HYDROcodone/APAP 5-325MG 1 EACH TAB PO PRN (22:43)
[2020-06-21] MEDS ORDERED: HYDROcodone/APAP 5-325MG 1 EACH TAB PO PRN (22:55)
[2020-06-21 23:00] LABS: Glucose,Whole Blood 114 mg/dL (75-99)
[2020-06-21 23:52] LABS: Glucose,Whole Blood 108 mg/dL (75-99)
[2020-06-22 00:51] LABS: Glucose,Whole Blood 121 mg/dL (75-99)
[2020-06-22] MEDS: KETOROLAC 15 MG/ML 1 ML VIAL IVP SCH ×4 (01:31→20:22)
[2020-06-22] MEDS: ONDANSETRON 4 MG/2 ML VIAL IVP PRN (02:23)
[2020-06-22 02:50] LABS: Glucose,Whole Blood 124 mg/dL (75-99)
[2020-06-22] MEDS: CYCLOBENZAPRINE 10 MG TAB PO PRN ×3 (02:54→20:22)
[2020-06-22] MEDS: VANCOMYCIN 1,500 MG in SODIUM CHLORIDE 0.9% 250 ML IVPB SCH ×3 (02:54→18:26)
[2020-06-22 04:12] LABS: Glucose,Whole Blood 109 mg/dL (75-99)
[2020-06-22 04:30] LABS: Ionized Calcium 4.3 mg/dL (4.5-5.3)
[2020-06-22 04:31] LABS: INR 1.2 (<1.2); Prothrombin Time 12.1 sec (9.0-12.0)
[2020-06-22 04:34] LABS: Basophils % (A) 0 %; Eosinophils # (A) 0.1 k/uL (0-0.7); Eosinophils % (A) 1 %; HCT 23.8 % (34.0-46.0); Lymphocytes # (A) 1.3 k/uL (1.0-4.8); Lymphocytes % (A) 11 %; MCH 30.4 pg (25.0-35.0); MCHC 31.8 g/dL (31.0-37.0); MCV 95.6 fL (80.0-100.0); Mean Platelet Volume 7.8; Monocytes # (A) 0.7 k/uL (0-1.0); Monocytes % (A) 6 %; Neutrophils # (A) 9.5 k/uL (1.3-7.7); Neutrophils % (A) 81 %; Platelet Count 126 k/uL (150-450); RBC 2.49 m/uL (3.80-5.40); RDW 13.1 % (11.5-15.5); WBC 11.7 k/uL (3.8-10.6)
[2020-06-22 04:36] LABS: HGB 7.6 gm/dL (11.4-16.0)
[2020-06-22 04:40] LABS: ALT 107 U/L (4-34); AST 134 U/L (14-36); African American GFR (CKD) >90 (>60 ml/min/1.73 sqM); Albumin 2.6 g/dL (3.5-5.0); Alkaline Phosphatase 45 U/L (38-126); Anion Gap 2 mmol/L; Blood Urea Nitrogen 9 mg/dL (7-17); Calcium 6.5 mg/dL (8.4-10.2); Carbon Dioxide 21 mmol/L (22-30); Chloride 110 mmol/L (98-107); Glucose 105 mg/dL (74-99); Magnesium 1.8 mg/dL (1.6-2.3); Non-African American GFR(CKD) >90 (>60 ml/min/1.73 sqM); Potassium 4.2 mmol/L (3.5-5.1); Sodium 133 mmol/L (137-145); Total Protein 4.5 g/dL (6.3-8.2)
[2020-06-22] MEDS: MAGNESIUM SULFATE-D5W PMX 1 GM in DEXTROSE/WATER 1 100ML.BAG IVPB SCH ×2 (05:12→08:01)
[2020-06-22 05:58] LABS: Glucose,Whole Blood 102 mg/dL (75-99)
[2020-06-22] MEDS: HYDROcodone/APAP 5-325MG 1 EACH TAB PO PRN ×2 (06:15→10:57)
[2020-06-22] MEDS: CALCIUM GLUCONATE 2 GM in SODIUM CHLORIDE 0.9% 100 ML IVPB PRN ×2 (06:17→06:20)
[2020-06-22] MEDS: clonazePAM 0.5 MG TAB PO SCH ×2 (06:23→20:22)
--- NOTE | 2020-06-22 07:08 | XR ---
EXAMINATION TYPE: XR chest 1V portable DATE OF EXAM: 06/22/2020 COMPARISON: NONE HISTORY: SOB, Follow Up FINDINGS: Indwelling tubes and catheters are unchanged. Tiny right apical pneumothorax persists. No evidence fo r left-sided pneumothorax. Increasing perihilar opacities may reflect atelectasis or developing infiltrate. Stable appearance of the cardio-mediastinal structures at this time. IMPRESSION: 1. Increasing perihilar opacities may reflect atelectasis or developing infiltrate. Tiny right apica l pneumothorax persists.
[2020-06-22 07:11] LABS: Glucose,Whole Blood 112 mg/dL (75-99)
[2020-06-22] MEDS: IPRATROPIUM-ALBUTEROL 3 ML NEB INHALATION SCH ×4 (07:27→19:56)
--- NOTE | 2020-06-22 07:42 | P.PN ---
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 Previous medical history of hypertension, chronic grade 2 diastolic heart failur e, chronic low back pain/fibromyalgia, Crohn's disease, anxiety/depression, ADHD, rheumatoid arthritis, PTSD, obesity POD #1 mitral valve replacement with a 25/33 mm On-X mechanical mitral valve, ligation of the left atrial appendage, epi-aortic ultrasonography Postoperative acute blood loss anemia, expected outcome of surgery given hemodilution and cardiopulmonary bypass pump Postoperative transaminitis, unexpected, likely due to volume changes Postoperative leukocytosis, likely reactive The patient is currently sitting up in a recliner in no acute distress. Successfully extubated last night at 17:00. Was complaining of significant lower back pain and spasms this morning, states she was only given 5 mg of Flexeril but her home dose is 20 mg. Denies shortness of breath. Remains in normal sinus rhythm and hemodynamically stable on no inotropes or pressors. Currently has right internal jugular [place]/Cordis and epicardial pacemaker wires present along with mediastinal, left and right pleural chest tubes. Uneventful night other than issues with pain control Objective - Vital Signs Vital signs: Vital Signs Temp 99.1 F 06/22/20 04:00 Pulse 84 06/22/20 06:00 Resp 28 H 06/22/20 06:00 BP 98/65 06/22/20 06:00 Pulse Ox 96 06/22/20 06:00 Intake & Output 06/21/20 06/22/20 06/22/20 18:59 06:59 18:59 Intake Total 236.830 8993.618 Output Total 965 980 Balance -42.027 1079.618 Intake: IV 63 367 0.9 ns CO/CI 60 280 Pressure bags 87 Intake, IV Titration 482.324 8854.618 Amount Albumin Human 5% 250 ml 250 500 In Empty Bag 1 bag @ 250 mls/hr IVPB Q1HR PRN Rx#: [id number] Insulin Regular 100 unit 4.747 2.618 In Sodium Chloride 0.9% 100 ml @ Per Protocol IV .Q0M [facility] Rx#:[id number] Lactated Ringers 1,000 ml 350 550 @ 50 mls/hr IV .Q20H [facility] Rx#:[id number] Magnesium Sulfate-D5w Pmx 100 1 gm In Dextrose/Water 1 100ml.bag @ 100 mls/hr IVPB Q1H [facility] Rx#: [id number] Vancomycin 1,500 mg In 250 250 Sodium Chloride 0.9% 250 ml @ 125 mls/hr IVPB Q8H [facility] Rx#:[id number] propofoL 1,000 mg In 5.226 Empty Bag 1 bag @ Titrate IV .Q0M [facility] Rx#: [id number] Oral 290 Output: Chest Tube Drainage 270 340 Chest Tube Bilateral 85 155 Chest Tube Mediastinal 185 185 Urine 695 640 Other: Voiding Method Indwelling Catheter Indwelling Catheter ABP, PAP, CO, CI - Last Documented Arterial Blood Pressure 91/56 Pulmonary Artery Pressure 36/18 Cardiac Output 5.5 Cardiac Index 2.8 - Constitutional General appearance: Present: cooperative, no acute distress, obese - Respiratory Details: Lungs sounds diminished bilaterally. Respirations even, nonlabored. Currently on room air with oxygen saturation 96%. Weak cough. Mediastinal chest tubes present continuous wall suction, 120 mL of serosanguineous drainage overnight, 400 mL since surgery. Left/right pleural chest tubes present to continuous wall suction, 110 mL serosanguineous drainage overnight, 250 mL since surgery. No air leaks present. - Cardiovascular Details: S1, S2 present. Regular rate and rhythm, sinus rhythm on telemetry. Sternum stable. A/V epicardial pacemaker wires present, connected to generator, VVI mode with backup rate 50 bpm. Palpable peripheral pulses bilaterally. Trace bilateral lower extremity edema present. Right internal jugular [place]/Cordis present. Last CO/CI 5.5/2.8 on no inotropes or pressors. Heart hugger in place with patient demonstrating appropriate use. Antiembolism stockings, SCDs present. - Gastrointestinal Gastrointestinal Comment(s): Abdomen soft, nontender, nondistended. Hypoactive bowel sounds present 4 quadrants. Tolerating sips of liquids. Negative flatus. - Genitourinary Genitourinary Comment(s): Carvajal present draining clear, yellow urine. Output 30-50 mL per hour overnight. - Integumentary Integumentary Comment(s): Skin is warm and dry with evidence of good perfusion. Anterior chest incision well approximated and covered with dry intact dressing. - Neurologic Neurologic: Present: CNII-XII intact - Musculoskeletal Musculoskeletal: Present: strength equal bilaterally - Psychiatric Psychiatric: Present: A&O x's 3, appropriate affect, intact judgment & insight - Allied health notes Allied health notes reviewed: nursing - Labs CBC & Chem 7: 06/22/20 04:10 06/22/20 04:10 Labs: Abnormal Lab Results - Last 24 Hours (Table) 06/14/20 06/21/20 06/21/20 Range/Units 10:59 08:18 09:12 WBC (3.8-10.6) k/uL RBC (3.80-5.40) m/uL Hgb (11.4-16.0) gm/dL Hct (34.0-46.0) % Plt Count (150-450) k/uL Neutrophils # (1.3-7.7) k/uL Lymphocytes # (1.0-4.8) k/uL PT (9.0-12.0) sec INR (<1.2) ABG pH (7.35-7.45) ABG pCO2 (35-45) mmHg ABG pO2 >420 H 224 H (83-108) mmHg ABG HCO3 (21-25) mmol/L ABG Total CO2 (19-24) mmol/L ABG O2 Saturation 100.0 H 99.8 H (94-97) % ABG Hematocrit (34.0-46.0) % ABG Potassium (3.4-4.5) mmol/L ABG Ionized Calcium 4.4 L (4.5-5.3) mg/dL ABG Glucose 112 H (75-99) mg/dL ABG Lactic Acid 1.8 H (0.5-1.6) mmol/L Hemoglobin 11.2 L (11.4-16.0) gm/dL Sodium (137-145) mmol/L Chloride (98-107) mmol/L Carbon Dioxide (22-30) mmol/L Creatinine (0.52-1.04) mg/dL Glucose (74-99) mg/dL POC Glucose (mg/dL) (75-99) mg/dL Calcium (8.4-10.2) mg/dL Ionized Calcium Brenda (4.5-5.3) mg/dL Magnesium (1.6-2.3) mg/dL AST (14-36) U/L ALT (4-34) U/L Total Protein (6.3-8.2) g/dL Albumin (3.5-5.0) g/dL Arterial Blood Potassium (3.4-4.5) mmol/L Arterial Blood Glucose 112 H (75-99) mg/dL Crossmatch See Detail 06/21/20 06/21/20 06/21/20 Range/Units 09:48 10:21 10:29 WBC (3.8-10.6) k/uL RBC (3.80-5.40) m/uL Hgb (11.4-16.0) gm/dL Hct (34.0-46.0) % Plt Count (150-450) k/uL Neutrophils # (1.3-7.7) k/uL Lymphocytes # (1.0-4.8) k/uL PT (9.0-12.0) sec INR (<1.2) ABG pH 7.30 L 7.30 L (7.35-7.45) ABG pCO2 48 H (35-45) mmHg ABG pO2 379 H 338 H 363 H (83-108) mmHg ABG HCO3 28 H (21-25) mmol/L ABG Total CO2 25 H 29 H (19-24) mmol/L ABG O2 Saturation 100.0 H 99.9 H 100.0 H (94-97) % ABG Hematocrit 26 L 26 L 27 L (34.0-46.0) % ABG Potassium 4.7 H (3.4-4.5) mmol/L ABG Ionized Calcium 4.3 L 4.1 L 4.0 L (4.5-5.3) mg/dL ABG Glucose 108 H 132 H 141 H (75-99) mg/dL ABG Lactic Acid 1.8 H 1.8 H (0.5-1.6) mmol/L Hemoglobin 8.5 L 8.4 L 8.7 L (11.4-16.0) gm/dL Sodium (137-145) mmol/L Chloride (98-107) mmol/L Carbon Dioxide (22-30) mmol/L Creatinine (0.52-1.04) mg/dL Glucose (74-99) mg/dL POC Glucose (mg/dL) (75-99) mg/dL Calcium (8.4-10.2) mg/dL Ionized Calcium Brenda (4.5-5.3) mg/dL Magnesium (1.6-2.3) mg/dL AST (14-36) U/L ALT (4-34) U/L Total Protein (6.3-8.2) g/dL Albumin (3.5-5.0) g/dL Arterial Blood Potassium 4.7 H (3.4-4.5) mmol/L Arterial Blood Glucose 108 H 132 H 141 H (75-99) mg/dL Crossmatch 06/21/20 06/21/20 06/21/20 Range/Units 11:25 12:15 12:15 WBC 18.0 H (3.8-10.6) k/uL RBC 3.72 L (3.80-5.40) m/uL Hgb 11.1 L (11.4-16.0) gm/dL Hct (34.0-46.0) % Plt Count (150-450) k/uL Neutrophils # 15.7 H (1.3-7.7) k/uL Lymphocytes # (1.0-4.8) k/uL PT (9.0-12.0) sec INR (<1.2) ABG pH (7.35-7.45) ABG pCO2 (35-45) mmHg ABG pO2 190 H (83-108) mmHg ABG HCO3 (21-25) mmol/L ABG Total CO2 25 H (19-24) mmol/L ABG O2 Saturation 99.4 H (94-97) % ABG Hematocrit 31 L (34.0-46.0) % ABG Potassium (3.4-4.5) mmol/L ABG Ionized Calcium 4.3 L (4.5-5.3) mg/dL ABG Glucose 117 H (75-99) mg/dL ABG Lactic Acid 2.0 H (0.5-1.6) mmol/L Hemoglobin 10.1 L (11.4-16.0) gm/dL Sodium (137-145) mmol/L Chloride (98-107) mmol/L Carbon Dioxide (22-30) mmol/L Creatinine (0.52-1.04) mg/dL Glucose (74-99) mg/dL POC Glucose (mg/dL) 102 H (75-99) mg/dL Calcium (8.4-10.2) mg/dL Ionized Calcium Brenda (4.5-5.3) mg/dL Magnesium (1.6-2.3) mg/dL AST (14-36) U/L ALT (4-34) U/L Total Protein (6.3-8.2) g/dL Albumin (3.5-5.0) g/dL Arterial Blood Potassium (3.4-4.5) mmol/L Arterial Blood Glucose 117 H (75-99) mg/dL Crossmatch 06/21/20 06/21/20 06/21/20 Range/Units 12:15 12:35 13:03 WBC (3.8-10.6) k/uL RBC (3.80-5.40) m/uL Hgb (11.4-16.0) gm/dL Hct (34.0-46.0) % Plt Count (150-450) k/uL Neutrophils # (1.3-7.7) k/uL Lymphocytes # (1.0-4.8) k/uL PT (9.0-12.0) sec INR (<1.2) ABG pH 7.27 L (7.35-7.45) ABG pCO2 59 H (35-45) mmHg ABG pO2 >400 H (83-108) mmHg ABG HCO3 27 H (21-25) mmol/L ABG Total CO2 29 H (19-24) mmol/L ABG O2 Saturation 99.4 H (94-97) % ABG Hematocrit (34.0-46.0) % ABG Potassium (3.4-4.5) mmol/L ABG Ionized Calcium (4.5-5.3) mg/dL ABG Glucose (75-99) mg/dL ABG Lactic Acid (0.5-1.6) mmol/L Hemoglobin (11.4-16.0) gm/dL Sodium 136 L (137-145) mmol/L Chloride 108 H (98-107) mmol/L Carbon Dioxide (22-30) mmol/L Creatinine 0.47 L (0.52-1.04) mg/dL Glucose 102 H (74-99) mg/dL POC Glucose (mg/dL) 109 H (75-99) mg/dL Calcium 7.8 L (8.4-10.2) mg/dL Ionized Calcium Brenda (4.5-5.3) mg/dL Magnesium 3.1 H (1.6-2.3) mg/dL AST 363 H (14-36) U/L ALT 143 H (4-34) U/L Total Protein 4.9 L (6.3-8.2) g/dL Albumin 2.6 L (3.5-5.0) g/dL Arterial Blood Potassium (3.4-4.5) mmol/L Arterial Blood Glucose (75-99) mg/dL Crossmatch 06/21/20 06/21/20 06/21/20 Range/Units 14:11 14:53 15:54 WBC (3.8-10.6) k/uL RBC (3.80-5.40) m/uL Hgb (11.4-16.0) gm/dL Hct (34.0-46.0) % Plt Count (150-450) k/uL Neutrophils # (1.3-7.7) k/uL Lymphocytes # (1.0-4.8) k/uL PT (9.0-12.0) sec INR (<1.2) ABG pH (7.35-7.45) ABG pCO2 (35-45) mmHg ABG pO2 (83-108) mmHg ABG HCO3 (21-25) mmol/L ABG Total CO2 (19-24) mmol/L ABG O2 Saturation (94-97) % ABG Hematocrit (34.0-46.0) % ABG Potassium (3.4-4.5) mmol/L ABG Ionized Calcium (4.5-5.3) mg/dL ABG Glucose (75-99) mg/dL ABG Lactic Acid (0.5-1.6) mmol/L Hemoglobin (11.4-16.0) gm/dL Sodium (137-145) mmol/L Chloride (98-107) mmol/L Carbon Dioxide (22-30) mmol/L Creatinine (0.52-1.04) mg/dL Glucose (74-99) mg/dL POC Glucose (mg/dL) 132 H 140 H 145 H (75-99) mg/dL Calcium (8.4-10.2) mg/dL Ionized Calcium Brenda (4.5-5.3) mg/dL Magnesium (1.6-2.3) mg/dL AST (14-36) U/L ALT (4-34) U/L Total Protein (6.3-8.2) g/dL Albumin (3.5-5.0) g/dL Arterial Blood Potassium (3.4-4.5) mmol/L Arterial Blood Glucose (75-99) mg/dL Crossmatch 06/21/20 06/21/20 06/21/20 Range/Units 16:30 17:02 18:22 WBC 16.4 H (3.8-10.6) k/uL RBC 3.50 L (3.80-5.40) m/uL Hgb 10.5 L (11.4-16.0) gm/dL Hct 32.5 L (34.0-46.0) % Plt Count (150-450) k/uL Neutrophils # 14.8 H (1.3-7.7) k/uL Lymphocytes # 0.7 L (1.0-4.8) k/uL PT (9.0-12.0) sec INR (<1.2) ABG pH 7.33 L (7.35-7.45) ABG pCO2 (35-45) mmHg ABG pO2 168 H (83-108) mmHg ABG HCO3 (21-25) mmol/L ABG Total CO2 25 H (19-24) mmol/L ABG O2 Saturation 99.0 H (94-97) % ABG Hematocrit (34.0-46.0) % ABG Potassium (3.4-4.5) mmol/L ABG Ionized Calcium (4.5-5.3) mg/dL ABG Glucose (75-99) mg/dL ABG Lactic Acid (0.5-1.6) mmol/L Hemoglobin (11.4-16.0) gm/dL Sodium (137-145) mmol/L Chloride (98-107) mmol/L Carbon Dioxide (22-30) mmol/L Creatinine (0.52-1.04) mg/dL Glucose (74-99) mg/dL POC Glucose (mg/dL) 133 H (75-99) mg/dL Calcium (8.4-10.2) mg/dL Ionized Calcium Brenda (4.5-5.3) mg/dL Magnesium (1.6-2.3) mg/dL AST (14-36) U/L ALT (4-34) U/L Total Protein (6.3-8.2) g/dL Albumin (3.5-5.0) g/dL Arterial Blood Potassium (3.4-4.5) mmol/L Arterial Blood Glucose (75-99) mg/dL Crossmatch 06/21/20 06/21/20 06/21/20 Range/Units 18:22 18:59 20:08 WBC (3.8-10.6) k/uL RBC (3.80-5.40) m/uL Hgb (11.4-16.0) gm/dL Hct (34.0-46.0) % Plt Count (150-450) k/uL Neutrophils # (1.3-7.7) k/uL Lymphocytes # (1.0-4.8) k/uL PT (9.0-12.0) sec INR (<1.2) ABG pH (7.35-7.45) ABG pCO2 (35-45) mmHg ABG pO2 (83-108) mmHg ABG HCO3 (21-25) mmol/L ABG Total CO2 (19-24) mmol/L ABG O2 Saturation (94-97) % ABG Hematocrit (34.0-46.0) % ABG Potassium (3.4-4.5) mmol/L ABG Ionized Calcium (4.5-5.3) mg/dL ABG Glucose (75-99) mg/dL ABG Lactic Acid (0.5-1.6) mmol/L Hemoglobin (11.4-16.0) gm/dL Sodium (137-145) mmol/L Chloride (98-107) mmol/L Carbon Dioxide (22-30) mmol/L Creatinine (0.52-1.04) mg/dL Glucose (74-99) mg/dL POC Glucose (mg/dL) 119 H 103 H 125 H (75-99) mg/dL Calcium (8.4-10.2) mg/dL Ionized Calcium Brenda (4.5-5.3) mg/dL Magnesium (1.6-2.3) mg/dL AST (14-36) U/L ALT (4-34) U/L Total Protein (6.3-8.2) g/dL Albumin (3.5-5.0) g/dL Arterial Blood Potassium (3.4-4.5) mmol/L Arterial Blood Glucose (75-99) mg/dL Crossmatch 06/21/20 06/21/20 06/21/20 Range/Units 20:58 21:58 22:59 WBC (3.8-10.6) k/uL RBC (3.80-5.40) m/uL Hgb (11.4-16.0) gm/dL Hct (34.0-46.0) % Plt Count (150-450) k/uL Neutrophils # (1.3-7.7) k/uL Lymphocytes # (1.0-4.8) k/uL PT (9.0-12.0) sec INR (<1.2) ABG pH (7.35-7.45) ABG pCO2 (35-45) mmHg ABG pO2 (83-108) mmHg ABG HCO3 (21-25) mmol/L ABG Total CO2 (19-24) mmol/L ABG O2 Saturation (94-97) % ABG Hematocrit (34.0-46.0) % ABG Potassium (3.4-4.5) mmol/L ABG Ionized Calcium (4.5-5.3) mg/dL ABG Glucose (75-99) mg/dL ABG Lactic Acid (0.5-1.6) mmol/L Hemoglobin (11.4-16.0) gm/dL Sodium (137-145) mmol/L Chloride (98-107) mmol/L Carbon Dioxide (22-30) mmol/L Creatinine (0.52-1.04) mg/dL Glucose (74-99) mg/dL POC Glucose (mg/dL) 143 H 134 H 114 H (75-99) mg/dL Calcium (8.4-10.2) mg/dL Ionized Calcium Brenda (4.5-5.3) mg/dL Magnesium (1.6-2.3) mg/dL AST (14-36) U/L ALT (4-34) U/L Total Protein (6.3-8.2) g/dL Albumin (3.5-5.0) g/dL Arterial Blood Potassium (3.4-4.5) mmol/L Arterial Blood Glucose (75-99) mg/dL Crossmatch 06/21/20 06/22/20 06/22/20 Range/Units 23:50 00:49 02:49 WBC (3.8-10.6) k/uL RBC (3.80-5.40) m/uL Hgb (11.4-16.0) gm/dL Hct (34.0-46.0) % Plt Count (150-450) k/uL Neutrophils # (1.3-7.7) k/uL Lymphocytes # (1.0-4.8) k/uL PT (9.0-12.0) sec INR (<1.2) ABG pH (7.35-7.45) ABG pCO2 (35-45) mmHg ABG pO2 (83-108) mmHg ABG HCO3 (21-25) mmol/L ABG Total CO2 (19-24) mmol/L ABG O2 Saturation (94-97) % ABG Hematocrit (34.0-46.0) % ABG Potassium (3.4-4.5) mmol/L ABG Ionized Calcium (4.5-5.3) mg/dL ABG Glucose (75-99) mg/dL ABG Lactic Acid (0.5-1.6) mmol/L Hemoglobin (11.4-16.0) gm/dL Sodium (137-145) mmol/L Chloride (98-107) mmol/L Carbon Dioxide (22-30) mmol/L Creatinine (0.52-1.04) mg/dL Glucose (74-99) mg/dL POC Glucose (mg/dL) 108 H 121 H 124 H (75-99) mg/dL Calcium (8.4-10.2) mg/dL Ionized Calcium Brenda (4.5-5.3) mg/dL Magnesium (1.6-2.3) mg/dL AST (14-36) U/L ALT (4-34) U/L Total Protein (6.3-8.2) g/dL Albumin (3.5-5.0) g/dL Arterial Blood Potassium (3.4-4.5) mmol/L Arterial Blood Glucose (75-99) mg/dL Crossmatch 06/22/20 06/22/2020 Range/Units 04:09 04:10 04:10 WBC 11.7 H (3.8-10.6) k/uL RBC 2.49 L (3.80-5.40) m/uL Hgb 7.6 L D (11.4-16.0) gm/dL Hct 23.8 L (34.0-46.0) % Plt Count 126 L (150-450) k/uL Neutrophils # 9.5 H (1.3-7.7) k/uL Lymphocytes # (1.0-4.8) k/uL PT (9.0-12.0) sec INR (<1.2) ABG pH (7.35-7.45) ABG pCO2 (35-45) mmHg ABG pO2 (83-108) mmHg ABG HCO3 (21-25) mmol/L ABG Total CO2 (19-24) mmol/L ABG O2 Saturation (94-97) % ABG Hematocrit (34.0-46.0) % ABG Potassium (3.4-4.5) mmol/L ABG Ionized Calcium (4.5-5.3) mg/dL ABG Glucose (75-99) mg/dL ABG Lactic Acid (0.5-1.6) mmol/L Hemoglobin (11.4-16.0) gm/dL Sodium 133 L (137-145) mmol/L Chloride 110 H (98-107) mmol/L Carbon Dioxide 21 L (22-30) mmol/L Creatinine 0.39 L (0.52-1.04) mg/dL Glucose 105 H (74-99) mg/dL POC Glucose (mg/dL) 109 H (75-99) mg/dL Calcium 6.5 L (8.4-10.2) mg/dL Ionized Calcium Rbenda 4.3 L (4.5-5.3) mg/dL Magnesium (1.6-2.3) mg/dL AST 134 H (14-36) U/L ALT 107 H (4-34) U/L Total Protein 4.5 L (6.3-8.2) g/dL Albumin 2.6 L (3.5-5.0) g/dL Arterial Blood Potassium (3.4-4.5) mmol/L Arterial Blood Glucose (75-99) mg/dL Crossmatch 06/22/20 06/22/20 06/22/20 Range/Units 04:10 05:56 07:09 WBC (3.8-10.6) k/uL RBC (3.80-5.40) m/uL Hgb (11.4-16.0) gm/dL Hct (34.0-46.0) % Plt Count (150-450) k/uL Neutrophils # (1.3-7.7) k/uL Lymphocytes # (1.0-4.8) k/uL PT 12.1 H (9.0-12.0) sec INR 1.2 H (<1.2) ABG pH (7.35-7.45) ABG pCO2 (35-45) mmHg ABG pO2 (83-108) mmHg ABG HCO3 (21-25) mmol/L ABG Total CO2 (19-24) mmol/L ABG O2 Saturation (94-97) % ABG Hematocrit (34.0-46.0) % ABG Potassium (3.4-4.5) mmol/L ABG Ionized Calcium (4.5-5.3) mg/dL ABG Glucose (75-99) mg/dL ABG Lactic Acid (0.5-1.6) mmol/L Hemoglobin (11.4-16.0) gm/dL Sodium (137-145) mmol/L Chloride (98-107) mmol/L Carbon Dioxide (22-30) mmol/L Creatinine (0.52-1.04) mg/dL Glucose (74-99) mg/dL POC Glucose (mg/dL) 102 H 112 H (75-99) mg/dL Calcium (8.4-10.2) mg/dL Ionized Calcium Brenda (4.5-5.3) mg/dL Magnesium (1.6-2.3) mg/dL AST (14-36) U/L ALT (4-34) U/L Total Protein (6.3-8.2) g/dL Albumin (3.5-5.0) g/dL Arterial Blood Potassium (3.4-4.5) mmol/L Arterial Blood Glucose (75-99) mg/dL Crossmatch - Imaging and Cardiology Chest x-ray: report reviewed, image reviewed Assessment and Plan Assessment: 1. 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 Hypertension 3. Chronic grade 2 diastolic heart failure 4. Chronic low back pain/fibromyalgia 5. Crohn's disease 6. Anxiety/depression 7. ADHD 8. Rheumatoid arthritis 9. PTSD 10. Obesity 11. Postoperative acute blood loss anemia 12. Postoperative transaminitis 13. Postoperative leukocytosis Plan: 1. Continue aspirin, statin, beta imani therapy. Will increase beta imani therapy as tolerated 2. Encourage and so spirometry is 10 times every hour while awake. [facility] hodilators per pulmonology 3. Increase activity, ambulate as tolerated. PT/OT/cardiac rehab following 4. Will initiate anticoagulation with Coumadin when appropriate. Goal INR 2-3 for 3 months, then 1.5-2 thereafter. Will draw daily PT/INR 5. Will monitor daily labs and x-rays. Electrolyte replacement per protocol. No transfusion at this time 6. GI/DVT prophylaxis 7. Pain control with current medication regimen. 8. Will increase Flexeril to 10 mg 3 times daily. We will inquire with the patient's pharmacy ([facility]) as to patient's home dose 9. Insulin management per primary care service. Patient is not diabetic, preoperative hemoglobin A1c 4.7% 10. Discontinue [place]. Connect cordis to continuous CVP monitoring 11. Will continue chest tubes for another 24 hours 12. Continue Carvajal for another 24 hours for strict accurate intake and output 13. More recommendations to follow Time with Patient: Greater than 30
[2020-06-22 07:59] LABS: Glucose,Whole Blood 107 mg/dL (75-99)
[2020-06-22] MEDS: ASPIRIN 325 MG TAB PO SCH (07:59)
[2020-06-22] MEDS: ASCORBIC ACID 500 MG TAB PO SCH ×2 (08:00→17:07)
[2020-06-22] MEDS: HEPARIN SODIUM,PORCINE 5,000 UNIT/ML 1 ML VIAL SQ SCH ×2 (08:00→15:36)
[2020-06-22] MEDS: METOPROLOL TARTRATE 12.5 MG TAB PO SCH ×3 (08:00→20:22)
[2020-06-22] MEDS: ATORVASTATIN 40 MG TAB PO SCH (08:01)
[2020-06-22] MEDS: LACTATED RINGERS 1,000 ML IV SCH (08:02)
[2020-06-22] MEDS: FERROUS SULFATE 325 MG TAB PO SCH ×2 (08:04→17:09)
[2020-06-22] MEDS ORDERED: PANTOPRAZOLE 40 MG/10 ML VIAL IVP SCH (09:00)
[2020-06-22] MEDS ORDERED: bisacodyL 10 MG SUPP RECTAL PRN (09:00)
--- NOTE | 2020-06-22 11:45 | P.CRDCN ---
History of Present Illness Consult date: 06/22/20 History of present illness: This is a 45-year-old female with history of mitral regurgitation and moderate aortic regurgitation and history of congestive heart failure. Patient had outpatient evaluation to [facility] and cardiac catheterization. [facility] was reported as showing eccentric severe mitral regurgitation and prolapse of the posterior leaflet. Moderate aortic regurgitation was seen. A cardiac catheterization revealed normal coronary arteries. Patient had mild pulmonary hypertension. She underwent surgery yesterday with replacement of the mitral valve with mecha nical valve. Aortic valve disease did not appear to be severe coronary intervention. Patient is sitting up in the chair. Complaining of chest pain. He is maintaining sinus rhythm. Liver enzymes are elevated. The kidney functions are normal. [place] was removed. Overall patient seemed to make good progress. We'll continue current management. We'll follow Review of Systems As per the chart Past Medical History Past Medical History: Chest Pain / Angina, Fibromyalgia, Hypertension, Memory Impairment, Rheumatoid Arthritis (RA), Syncope Additional Past Medical History / Comment(s): irritable bowel, crohn's disease, vertigo, hypoglycemia History of Any Multi-Drug Resistant Organisms: None Reported Past Surgical History: Cholecystectomy, Heart Catheterization Additional Past Surgical History / Comment(s): laparoscopy 1994, D&C, colonoscopies Past Anesthesia/Blood Transfusion Reactions: No Reported Reaction Additional Past Anesthesia/Blood Transfusion Reaction / Comment(s): slow to wake up @times Smoking Status: Never smoker - Past Family History Mother Family Medical History: Congestive Heart Failure (CHF) Father Additional Family Medical History / Comment(s): ETOH, unknown history Medications and Allergies Home Medications Medication Instructions Recorded Confirmed Type Loperamide [Imodium] 2 mg PO TID PRN 12/22/15 06/19/20 History clonazePAM [KlonoPIN] 0.5 mg PO BID 02/03/18 06/19/20 History traZODone HCL 150 mg PO HS 02/03/18 06/19/20 History Acetaminophen [Tylenol Extra 1,000 mg PO Q6H PRN 06/09/20 06/19/20 History Strength] Cranberry Fruit Extract [Cranberry] 500 mg PO DAILY 06/09/20 06/19/20 History Escitalopram Oxalate [Lexapro] 10 mg PO HS 06/09/20 06/19/20 History Cyclobenzaprine [Flexeril] 5 mg PO TID PRN #30 tab 06/14/20 06/19/20 Rx Furosemide [Lasix] 40 mg PO DAILY #30 tab 06/14/20 06/19/20 Rx Nitroglycerin Sl Tabs [Nitrostat] 0.4 mg SUBLINGUAL Q5M PRN #30 tab 06/14/20 06/19/20 Rx Allergies Allergy/AdvReac Type Severity Reaction Status Date / Time latex Allergy Rash/Hives Verified 06/19/20 10:23 Penicillins Allergy Anaphylaxis Verified 06/19/20 10:23 prochlorperazine edisylate Allergy Anaphylaxis Verified 06/19/20 10:23 [From Compazine] prochlorperazine maleate Allergy Anaphylaxis Verified 06/19/20 10:23 [From Compazine] Physical Exam Vitals: Vital Signs Temp Pulse Resp BP Pulse Ox 06/22/20 11:00 83 24 88/54 96 06/22/20 10:30 84 23 85/57 95 06/22/20 10:00 85 14 92/49 98 06/22/20 09:30 105 H 32 H 96/70 97 06/22/20 09:00 94 18 100/63 93 L 06/22/20 08:30 93 20 96/47 93 L 06/22/20 08:00 98.5 F 92 24 103/62 95 06/22/20 07:39 17 06/22/20 07:37 88 06/22/20 07:30 84 27 H 90/61 97 06/22/20 07:27 84 06/22/20 07:00 89 17 95/61 97 06/22/20 06:30 85 24 99/55 96 06/22/20 06:00 84 28 H 98/65 96 06/22/20 05:30 83 22 94/56 95 06/22/20 05:00 84 20 96/61 95 06/22/20 04:30 85 18 95/63 96 06/22/20 04:00 99.1 F 84 20 96/61 95 06/22/20 03:30 82 26 H 91/63 95 06/22/20 03:00 81 20 102/58 96 06/22/20 02:30 80 28 H 97/57 96 06/22/20 02:00 78 18 90/59 98 08/28/20 01:30 78 20 96/56 98 06/22/20 01:00 77 16 103/64 97 06/22/20 00:30 77 20 116/70 100 06/22/20 00:02 75 18 116/70 100 06/22/20 00:00 75 20 100 06/21/20 23:30 98.2 F 75 11 L 116/70 99 06/21/20 23:00 75 22 100 06/21/20 22:30 76 20 100 06/21/20 22:00 75 22 114/71 100 06/21/20 21:30 75 18 100 06/21/20 21:00 76 24 100 06/21/20 20:30 75 20 99 06/21/20 20:05 74 06/21/20 20:00 98.2 F 73 12 99 06/21/20 19:51 70 06/21/20 19:30 73 13 98 06/21/20 19:00 75 19 100 06/21/20 18:30 74 22 100 06/21/20 18:00 73 12 98 06/21/20 17:30 73 20 99 06/21/20 17:00 75 17 99 06/21/20 16:30 74 13 98 06/21/20 16:00 98.4 F 72 13 98 06/21/20 15:30 98.4 F 74 22 98 06/21/20 15:22 74 06/21/20 15:12 74 06/21/20 15:00 74 16 99 06/21/20 14:30 73 18 99 06/21/20 14:00 97.2 F L 72 16 100 06/21/20 13:45 74 16 98 06/21/20 13:30 76 18 97 06/21/20 13:15 74 18 82 L 06/21/20 13:00 70 12 100 06/21/20 12:45 70 12 100 06/21/20 12:30 96.8 F L 67 12 100 06/21/20 12:20 64 12 100 Intake and Output 06/21/20 06/22/20 06/22/20 22:59 06:59 14:59 Intake Total 5009.698 4102.96 704 Output Total 955 675 550 Balance 148.405 801.96 154 Intake: IV 157 276 204 0.9 ns CO/CI 130 210 20 Lactated Ringers 1,000 ml 160 @ 20 mls/hr IV .Q24H [facility] Rx#:[id number] Pressure bags 27 66 24 Intake, IV Titration 489.768 7929.96 100 Amount Albumin Human 5% 250 ml 500 In Empty Bag 1 bag @ 250 mls/hr IVPB Q1HR PRN Rx#: [id number] Calcium Gluconate 2 gm In 100 Sodium Chloride 0.9% 100 ml @ 100 mls/hr IVPB ONCE PRN Rx#:[id number] Insulin Regular 100 unit 6.405 0.96 In Sodium Chloride 0.9% 100 ml @ Per Protocol IV .Q0M [facility] Rx#:[id number] Lactated Ringers 1,000 ml 400 350 @ 20 mls/hr IV .Q24H [facility] Rx#:[id number] Magnesium Sulfate-D5w Pmx 100 1 gm In Dextrose/Water 1 100ml.bag @ 100 mls/hr IVPB Q1H [facility] Rx#: [id number] Vancomycin 1,500 mg In 250 250 Sodium Chloride 0.9% 250 ml @ 125 mls/hr IVPB Q8H [facility] Rx#:[id number] Oral 290 400 Output: Chest Tube Drainage 220 270 290 Chest Tube Bilateral 90 120 140 Chest Tube Mediastinal 130 150 150 Urine 735 405 260 Other: Voiding Method Indwelling Catheter Indwelling Catheter Indwelling Catheter ABP, PAP, CO, CI - Last 8 Hours Pulmonary Artery Pressure 42/25 Pulmonary Artery Pressure 29/16 Pulmonary Artery Pressure 25/15 Pulmonary Artery Pressure 23/13 Pulmonary Artery Pressure 29/16 Pulmonary Artery Pressure 28/15 Pulmonary Artery Pressure 36/18 Pulmonary Artery Pressure 34/16 Pulmonary Artery Pressure 33/17 Pulmonary Artery Pressure 39/23 Pulmonary Artery Pressure 32/15 Cardiac Output 7.9 Cardiac Output 7.9 Cardiac Output 7.9 Cardiac Output 7.9 Cardiac Output 7.9 Cardiac Output 7.9 Cardiac Output 5.5 Cardiac Output 5.5 Cardiac Output 5.5 Cardiac Output 5.6 Cardiac Output 6.2 Cardiac Index 4 Cardiac Index 4 Cardiac Index 4 Cardiac Index 4 Cardiac Index 4 Cardiac Index 4 Cardiac Index 2.8 Cardiac Index 2.8 Cardiac Index 2.8 Cardiac Index 2.8 Cardiac Index 3.1 GENERAL EXAM: Patient is alert and oriented and doesn't appear to be in any acute distress HEENT: Normocephalic. Normal reaction of pupils, equal size, normal range of extraocular motion. No erythema or exudates in the throat. NECK: No masses, no nuchal rigidity. CHEST: No chest wall deformity. LUNGS: Diminished breath sounds at bases HEART: Distant heart sounds ABDOMEN: No hepatosplenomegaly, normal bowel sounds, no guarding or rigidity. SKIN: No rashes CENTRAL NERVOUS SYSTEM: No focal deficits. EXTREMITIES: No cyanosis, clubbing or edema. Results 06/22/20 04:10 06/22/20 04:10 Cardiac Enzymes 06/21/20 06/22/20 Range/Units 12:15 04:10 AST 363 H 134 H (14-36) U/L Coagulation 06/21/20 06/22/20 Range/Units 12:15 04:10 PT 11.4 12.1 H (9.0-12.0) sec APTT 29.4 (22.0-30.0) sec CBC 06/21/20 06/21/20 06/22/20 Range/Units 12:15 18:22 04:10 WBC 18.0 H 16.4 H 11.7 H (3.8-10.6) k/uL RBC 3.72 L 3.50 L 2.49 L (3.80-5.40) m/uL Hgb 11.1 L 10.5 L 7.6 L D (11.4-16.0) gm/dL Hct 34.3 32.5 L 23.8 L (34.0-46.0) % Plt Count 164 172 126 L (150-450) k/uL Comprehensive Metabolic Panel 06/21/20 06/22/20 Range/Units 12:15 04:10 Sodium 136 L 133 L (137-145) mmol/L Potassium 4.8 4.2 (3.5-5.1) mmol/L Chloride 108 H 110 H (98-107) mmol/L Carbon Dioxide 24 21 L (22-30) mmol/L BUN 12 9 (7-17) mg/dL Creatinine 0.47 L 0.39 L (0.52-1.04) mg/dL Glucose 102 H 105 H (74-99) mg/dL Calcium 7.8 L 6.5 L (8.4-10.2) mg/dL AST 363 H 134 H (14-36) U/L ALT 143 H 107 H (4-34) U/L Alkaline Phosphatase 54 45 (38-126) U/L Total Protein 4.9 L 4.5 L (6.3-8.2) g/dL Albumin 2.6 L 2.6 L (3.5-5.0) g/dL Current Medications Generic Name Dose Route Start Last Admin Trade Name Freq PRN Reason Stop Dose Admin Acetaminophen 1,000 mg 06/22/20 06:21 Tylenol Tab PO Q6HR PRN Fever and/ or Pain Hydrocodone Bitart/Acetaminophen 2 each 06/21/20 22:55 06/22/20 10:57 [place] 5-325 PO 2 each Q4HR PRN Administration Severe Pain Hydrocodone Bitart/Acetaminophen 1 each 06/21/20 22:55 [place] 5-325 PO Q4HR PRN Moderate Pain Albuterol/Ipratropium 3 ml 06/21/20 11:52 Duoneb 0.5 Mg-3 Mg/3 Ml Soln INHALATION RT-Q2H PRN Shortness Of Breath Or Wheezing Albuterol/Ipratropium 3 ml 06/21/20 16:57 06/22/20 07:27 Duoneb 0.5 Mg-3 Mg/3 Ml Soln INHALATION 3 ml RT-QID [facility] Administration Ascorbic Acid 500 mg 06/22/20 07:30 06/22/20 08:00 Vitamin C PO 500 mg BID-W/MEALS [facility] Administration Aspirin 325 mg 06/22/20 09:00 06/22/20 07:59 Aspirin PO 325 mg DAILY [facility] Administration Atorvastatin Calcium 40 mg 06/22/20 09:00 06/22/20 08:01 Lipitor PO 40 mg DAILY [facility] Administration Benzocaine/Menthol 1 each 06/21/20 11:52 Cepacol Lozenge MUCOUS MEM Q2H PRN Sore Throat Bisacodyl 10 mg 06/22/20 09:00 Dulcolax RECTAL DAILY PRN Constipation Clonazepam 0.5 mg 06/21/20 21:00 06/22/20 06:23 Klonopin PO 0.5 mg BID [facility] Administration Cyclobenzaprine HCl 10 mg 06/22/20 06:49 06/22/20 08:01 Flexeril PO 10 mg TID PRN Administration Muscle Spasm Escitalopram Oxalate 10 mg 06/21/20 21:00 06/21/20 21:01 Lexapro PO 10 mg HS [facility] Administration Ferrous Sulfate 325 mg 06/22/20 07:30 06/22/20 08:04 Feosol PO 325 mg BID-W/MEALS [facility] Administration Furosemide 20 mg 06/22/20 10:00 Lasix IV Q12HR [facility] Heparin Sodium (Porcine) 5,000 unit 06/21/20 19:00 06/22/20 08:00 Heparin SQ 5,000 unit Q8HR [facility] Administration Hydralazine HCl 10 mg 06/21/20 11:52 Apresoline IVP Q1H PRN Blood Pressure - High Clevidipine 25 mg/ IV Solution 50 mls @ 2 mls/hr 06/21/20 11:52 06/21/20 13:23 IV Not Given .Q24H [facility] Protocol 1 MG/HR Amiodarone HCl 150 mg/ 103 mls @ 618 mls/hr 06/21/20 11:52 Dextrose/Water IV .Q10M PRN A.FIB/FLUTTER Protocol Amiodarone HCl 360 mg/ 200 mls @ 33.333 mls/hr 06/21/20 11:52 Dextrose/Water IV .Q6H PRN A.FIB/FLUTTER Protocol 1 MG/MIN Amiodarone HCl 300 mg/ 250 mls @ 25 mls/hr 06/21/20 11:52 Dextrose/Water IV .Q10H PRN A.FIB/FLUTTER Protocol 0.5 MG/MIN Albumin Human 250 ml/ IV 250 mls @ 250 mls/hr 06/21/20 11:52 06/21/20 23:38 Solution IVPB 06/23/20 11:53 250 mls/hr Q1HR PRN Administration For Volume Lactated Ringer's 1,000 mls @ 20 mls/hr 06/21/20 11:52 06/22/20 08:02 Lactated Ringers IV 20 mls/hr .Q24H [facility] Administration Vancomycin HCl 1,500 mg/ 250 mls @ 125 mls/hr 06/21/20 18:00 06/22/20 09:57 Sodium Chloride IVPB 125 mls/hr Q8H [facility] Administration Insulin Aspart 0 unit 06/22/20 12:30 Novolog SQ ACHS [facility] Protocol Ketorolac Tromethamine 15 mg 06/21/20 15:00 06/22/20 08:04 Toradol IVP 06/24/20 15:01 15 mg Q6H [facility] Administration Magnesium Hydroxide 2,400 mg 06/22/20 09:00 Milk Of Magnesia PO BID PRN Constipation Metoclopramide HCl 10 mg 06/21/20 11:52 Reglan IVP Q4H PRN Nausea And Vomiting Metoprolol Tartrate 12.5 mg 06/22/20 09:00 06/22/20 09:57 Lopressor PO 12.5 mg BID [facility] Administration Miscellaneous Information 1 each 06/21/20 11:52 Potassium Per Protocol MISCELLANE DAILY PRN Per Protocol Protocol Miscellaneous Information 1 each 06/21/20 11:52 Magnesium Per Protocol MISCELLANE DAILY PRN Per Protocol Protocol Miscellaneous Information 1 each 06/21/20 11:52 Phosphorus Per Protocol MISCELLANE DAILY PRN Per Protocol Protocol Miscellaneous Information 0 each 06/22/20 17:00 Vancomycin Trough Due MISCELLANE 06/22/20 17:01 DIRECTED ONE Ondansetron HCl 4 mg 06/21/20 11:52 06/22/20 02:23 Zofran IVP 4 mg Q6HR PRN Administration Nausea And Vomiting Pantoprazole Sodium 40 mg 06/23/20 07:30 Protonix PO AC-[id number] [facility] Senna/Docusate Sodium 2 each 06/22/20 21:00 Senokot-S PO HS [facility] Sodium Chloride 10 ml 06/21/20 21:00 06/22/20 09:59 Saline Flush IV 10 ml BID [facility] Administration Trazodone HCl 150 mg 06/22/20 21:00 Desyrel PO HS [facility] Intake and Output 06/21/20 06/22/20 06/22/20 22:59 06:59 14:59 Intake Total 8163.939 2221.96 704 Output Total 955 675 550 Balance 148.405 801.96 154 Intake: IV 157 276 204 0.9 ns CO/CI 130 210 20 Lactated Ringers 1,000 ml 160 @ 20 mls/hr IV .Q24H [facility] Rx#:[id number] Pressure bags 27 66 24 Intake, IV Titration 737.689 3533.96 100 Amount Albumin Human 5% 250 ml 500 In Empty Bag 1 bag @ 250 mls/hr IVPB Q1HR PRN Rx#: [id number] Calcium Gluconate 2 gm In 100 Sodium Chloride 0.9% 100 ml @ 100 mls/hr IVPB ONCE PRN Rx#:[id number] Insulin Regular 100 unit 6.405 0.96 In Sodium Chloride 0.9% 100 ml @ Per Protocol IV .Q0M [facility] Rx#:[id number] Lactated Ringers 1,000 ml 400 350 @ 20 mls/hr IV .Q24H [facility] Rx#:[id number] Magnesium Sulfate-D5w Pmx 100 1 gm In Dextrose/Water 1 100ml.bag @ 100 mls/hr IVPB Q1H [facility] Rx#: [id number] Vancomycin 1,500 mg In 250 250 Sodium Chloride 0.9% 250 ml @ 125 mls/hr IVPB Q8H [facility] Rx#:[id number] Oral 290 400 Output: Chest Tube Drainage 220 270 290 Chest Tube Bilateral 90 120 140 Chest Tube Mediastinal 130 150 150 Urine 735 405 260 Other: Voiding Method Indwelling Catheter Indwelling Catheter Indwelling Catheter 06/22/20 04:10 06/22/20 04:10 Assessment and Plan (1) Status post mitral valve replacement Current Visit: Yes Status: Acute Code(s): Z95.2 - PRESENCE OF PROSTHETIC HEART VALVE SNOMED Code(s): 2641902755664 (2) History of mitral valve prolapse Current Visit: Yes Status: Acute Code(s): Z86.79 - PERSONAL HISTORY OF OTHER DISEASES OF THE CIRCULATORY SYSTEM SNOMED Code(s): 705402789 (3) History of congestive heart failure Current Visit: Yes Status: Acute Code(s): Z86.79 - PERSONAL HISTORY OF OTHER DISEASES OF THE CIRCULATORY SYSTEM SNOMED Code(s): 493437546 Plan: Continue current management. Incentive spirometry. Increase activity as t olerated. We will follow
[2020-06-22 11:51] VITALS: BMI 29.2
[2020-06-22 11:57] LABS: Glucose,Whole Blood 127 mg/dL (75-99)
[2020-06-22] MEDS ORDERED: HYDROcodone/APAP 7.5-325MG 1 EACH TAB PO PRN (13:27)
[2020-06-22 13:32] LABS: Glucose,Whole Blood 148 mg/dL (75-99)
--- NOTE | 2020-06-22 13:51 | P.PN ---
Subjective Progress Note Date: 06/22/20 Principal diagnosis: Severe mitral regurgitation, CHF 45-year-old white female patient, who was recently hospitalized from 06/09/2020 through 06/14/2020 and the patient presented to the emergency department for evaluation of progressive shortness of breath, orthopnea and her evaluation revealed elevated proBNP, chest x-ray showed congestive heart failure, echocardiogram demonstrated significant valvular disease, grade 2 diastolic dysfunction and pulmonary hypertension with right-sided pressures of 52 mmHg. Cardiology was consulted, transesophageal echocardiogram showed severe mitral regurgitation, cardiac catheterization showed normal coronary arteries. Patient was a volume optimized and transitioned to oral diuretics, CT surgery was consulted for mitral valve repair surgery. On 06/21/2020 patient had mitral valve replacement with a 25/33 mm On-X mechanical mitral valve, ligation of the left atrial appendage, appendectomy aortic ultrasonography. She was seen in the postoperative period in the intensive care unit, sedated, on mechanical ventilator, with current vent settings of SIMV mode of ventilation with a rate of 12, tidal volume of 400, FiO2 of 100%, and PEEP of 5, postoperative blood gases showed pO2 of greater than 400, pCO2 59, and pH of 7.26. Hemodynamically patient is very stable, [address], mediastinal chest tube with 100 mL of saline was output, left pleural and right pleural chest tubes with the 30 mL of sanguinous output. His rhythm on the monitor, AV wires connected to external pacemaker with the backup rate of 50, on DDD mode. PA pressures 20/7, CVP is 4, cardiac output is 4.0, cardiac index is 2.0. Lactated Ringer's at a rate of 50, Diprivan infusing only at a rate of 10 mics per kilo per minute, and is currently off. Postoperative blood work shows white blood cell count of 18.0, hemoglobin of 11.1, sodium is 136, potassium is 4.8, chloride is 108, BUN is 12 creatinine 0.47, AST is 363, ALT of 143. Postoperative chest x-ray shows bilateral chest tubes, postoperative changes with straining bibasilar atele ctasis and trace 4 mm right apical pneumothorax. On 06/22/2020 patient seen in follow-up in the intensive care unit, today is postoperative day #1, status post mitral valve replacement, ligation of the left atrial appendage, and epiaortic ultrasonography. Patient was successfully weaned and extubated from mechanical ventilator at 1700 on postop day 0. Hemodynamically patient is very stable, she is awake and alert, oriented 3, room air pulse ox is 96%, PA catheter was discontinued this morning, Patient is on lactated Ringer's at a rate of 40 mL per hour, no vasoactive drips, she is on room air, denies any shortness of breath, she is achieving 1000 mL on the incentive spirometer today. Lung sounds are clear, diminished at the bases, today's labs have been reviewed, showing white blood cell count of 11.7, hemoglobin 7.6, sodium is 133, potassium is 4.2, chloride is 110, CO2 is 21, BUN of 9, creatinine 0.39. Right and left pleural chest tubes, and mediastinal chest tube are in place, mediastinal chest tube output is 150 ML in the last 24 hours, bilateral pleural chest tube output is about 140 mL. Patient is ambulating with physical therapy, tolerating activity very well. Chest x-ray today showed increasing perihilar opacities that may reflect atelectasis or developing infiltrate. An tiny right apical pneumothorax. Objective - Vital Signs Vital signs: Vital Signs Temp 98.5 F 06/22/20 08:00 Pulse 83 06/22/20 11:00 Resp 24 06/22/20 11:00 BP 88/54 06/22/20 11:00 Pulse Ox 96 06/22/20 11:00 Intake & Output 06/21/20 06/22/20 06/22/20 18:59 06:59 18:59 Intake Total 775.187 6302.618 704 Output Total 965 1060 550 Balance -42.027 1035.618 154 Weight 87.1 kg Intake: IV 63 403 204 0.9 ns CO/CI 60 310 20 Lactated Ringers 1,000 ml 160 @ 20 mls/hr IV .Q24H [facility] Rx#:[id number] Pressure bags 93 24 Intake, IV Titration 743.858 7084.618 100 Amount Albumin Human 5% 250 ml 250 500 In Empty Bag 1 bag @ 250 mls/hr IVPB Q1HR PRN Rx#: [id number] Calcium Gluconate 2 gm In 100 Sodium Chloride 0.9% 100 ml @ 100 mls/hr IVPB ONCE PRN Rx#:[id number] Insulin Regular 100 unit 4.747 2.618 In Sodium Chloride 0.9% 100 ml @ Per Protocol IV .Q0M [facility] Rx#:[id number] Lactated Ringers 1,000 ml 350 550 @ 20 mls/hr IV .Q24H [facility] Rx#:[id number] Magnesium Sulfate-D5w Pmx 100 1 gm In Dextrose/Water 1 100ml.bag @ 100 mls/hr IVPB Q1H [facility] Rx#: [id number] Vancomycin 1,500 mg In 250 250 Sodium Chloride 0.9% 250 ml @ 125 mls/hr IVPB Q8H [facility] Rx#:[id number] propofoL 1,000 mg In 5.226 Empty Bag 1 bag @ Titrate IV .Q0M [facility] Rx#: [id number] Oral 290 400 Output: Chest Tube Drainage 270 380 290 Chest Tube Bilateral 85 165 140 Chest Tube Mediastinal 185 215 150 Urine 695 680 260 Other: Voiding Method Indwelling Catheter Indwelling Catheter Indwelling Catheter ABP, PAP, CO, CI - Last Documented Arterial Blood Pressure 91/56 Pulmonary Artery Pressure 42/25 Cardiac Output 7.9 Cardiac Index 4 - Exam GENERAL EXAM: Sedated 45 -year-old white female, on room air pulse ox of 96% comfortable in no apparent distress. HEAD: Normocephalic/atraumatic. EYES: Normal reaction of pupils, equal size. Conjunctiva pink, sclera white. NOSE: Clear with pink turbinates. THROAT: No erythema or exudates. NECK: No masses, no JVD, no thyroid enlargement, no adenopathy. CHEST: No chest wall deformity. Symmetrical expansion. Midsternal incision is clean dry and intact, 3 chest tubes, one mediastinal, right and left pleural, AV wires connected to the external pacemaker box, with backup rate of 50, with the DDD mode LUNGS: Equal air entry with no crackles, wheeze, rhonchi or dullness. CVS: Regular rate and rhythm, normal S1 and S2, no gallops, no murmurs, no rubs ABDOMEN: Soft, nontender. No hepatosplenomegaly, normal bowel sounds, no guard ing or rigidity. EXTREMITIES: No clubbing, no edema, no cyanosis, 2+ pulses and upper and lower extremities. MUSCULOSKELETAL: Muscle strength and tone normal. SPINE: No scoliosis or deformity SKIN: No rashes CENTRAL NERVOUS SYSTEM: No focal deficits, tone is normal in all 4 extremities. - Labs CBC & Chem 7: 06/22/20 04:10 06/22/20 04:10 Labs: Abnormal Lab Results - Last 24 Hours (Table) 06/14/20 06/21/20 06/21/20 Range/Units 10:59 14:11 14:53 WBC (3.8-10.6) k/uL RBC (3.80-5.40) m/uL Hgb (11.4-16.0) gm/dL Hct (34.0-46.0) % Plt Count (150-450) k/uL Neutrophils # (1.3-7.7) k/uL Lymphocytes # (1.0-4.8) k/uL PT (9.0-12.0) sec INR (<1.2) ABG pH (7.35-7.45) ABG pO2 (83-108) mmHg ABG Total CO2 (19-24) mmol/L ABG O2 Saturation (94-97) % Sodium (137-145) mmol/L Chloride (98-107) mmol/L Carbon Dioxide (22-30) mmol/L Creatinine (0.52-1.04) mg/dL Glucose (74-99) mg/dL POC Glucose (mg/dL) 132 H 140 H (75-99) mg/dL Calcium (8.4-10.2) mg/dL Ionized Calcium Brenda (4.5-5.3) mg/dL AST (14-36) U/L ALT (4-34) U/L Total Protein (6.3-8.2) g/dL Albumin (3.5-5.0) g/dL Crossmatch See Detail 06/21/20 06/21/20 06/21/20 Range/Units 15:54 16:30 17:02 WBC (3.8-10.6) k/uL RBC (3.80-5.40) m/uL Hgb (11.4-16.0) gm/dL Hct (34.0-46.0) % Plt Count (150-450) k/uL Neutrophils # (1.3-7.7) k/uL Lymphocytes # (1.0-4.8) k/uL PT (9.0-12.0) sec INR (<1.2) ABG pH 7.33 L (7.35-7.45) ABG pO2 168 H (83-108) mmHg ABG Total CO2 25 H (19-24) mmol/L ABG O2 Saturation 99.0 H (94-97) % Sodium (137-145) mmol/L Chloride (98-107) mmol/L Carbon Dioxide (22-30) mmol/L Creatinine (0.52-1.04) mg/dL Glucose (74-99) mg/dL POC Glucose (mg/dL) 145 H 133 H (75-99) mg/dL Calcium (8.4-10.2) mg/dL Ionized Calcium Brenda (4.5-5.3) mg/dL AST (14-36) U/L ALT (4-34) U/L Total Protein (6.3-8.2) g/dL Albumin (3.5-5.0) g/dL Crossmatch 06/21/20 06/21/20 06/21/20 Range/Units 18:22 18:22 18:59 WBC 16.4 H (3.8-10.6) k/uL RBC 3.50 L (3.80-5.40) m/uL Hgb 10.5 L (11.4-16.0) gm/dL Hct 32.5 L (34.0-46.0) % Plt Count (150-450) k/uL Neutrophils # 14.8 H (1.3-7.7) k/uL Lymphocytes # 0.7 L (1.0-4.8) k/uL PT (9.0-12.0) sec INR (<1.2) ABG pH (7.35-7.45) ABG pO2 (83-108) mmHg ABG Total CO2 (19-24) mmol/L ABG O2 Saturation (94-97) % Sodium (137-145) mmol/L Chloride (98-107) mmol/L Carbon Dioxide (22-30) mmol/L Creatinine (0.52-1.04) mg/dL Glucose (74-99) mg/dL POC Glucose (mg/dL) 119 H 103 H (75-99) mg/dL Calcium (8.4-10.2) mg/dL Ionized Calcium Brenda (4.5-5.3) mg/dL AST (14-36) U/L ALT (4-34) U/L Total Protein (6.3-8.2) g/dL Albumin (3.5-5.0) g/dL Crossmatch 06/21/20 06/21/20 06/21/20 Range/Units 20:08 20:58 21:58 WBC (3.8-10.6) k/uL RBC (3.80-5.40) m/uL Hgb (11.4-16.0) gm/dL Hct (34.0-46.0) % Plt Count (150-450) k/uL Neutrophils # (1.3-7.7) k/uL Lymphocytes # (1.0-4.8) k/uL PT (9.0-12.0) sec INR (<1.2) ABG pH (7.35-7.45) ABG pO2 (83-108) mmHg ABG Total CO2 (19-24) mmol/L ABG O2 Saturation (94-97) % Sodium (137-145) mmol/L Chloride (98-107) mmol/L Carbon Dioxide (22-30) mmol/L Creatinine (0.52-1.04) mg/dL Glucose (74-99) mg/dL POC Glucose (mg/dL) 125 H 143 H 134 H (75-99) mg/dL Calcium (8.4-10.2) mg/dL Ionized Calcium Brenda (4.5-5.3) mg/dL AST (14-36) U/L ALT (4-34) U/L Total Protein (6.3-8.2) g/dL Albumin (3.5-5.0) g/dL Crossmatch 06/21/20 06/21/20 06/22/20 Range/Units 22:59 23:50 00:49 WBC (3.8-10.6) k/uL RBC (3.80-5.40) m/uL Hgb (11.4-16.0) gm/dL Hct (34.0-46.0) % Plt Count (150-450) k/uL Neutrophils # (1.3-7.7) k/uL Lymphocytes # (1.0-4.8) k/uL PT (9.0-12.0) sec INR (<1.2) ABG pH (7.35-7.45) ABG pO2 (83-108) mmHg ABG Total CO2 (19-24) mmol/L ABG O2 Saturation (94-97) % Sodium (137-145) mmol/L Chloride (98-107) mmol/L Carbon Dioxide (22-30) mmol/L Creatinine (0.52-1.04) mg/dL Glucose (74-99) mg/dL POC Glucose (mg/dL) 114 H 108 H 121 H (75-99) mg/dL Calcium (8.4-10.2) mg/dL Ionized Calcium Brenda (4.5-5.3) mg/dL AST (14-36) U/L ALT (4-34) U/L Total Protein (6.3-8.2) g/dL Albumin (3.5-5.0) g/dL Crossmatch 06/22/20 06/22/20 06/22/20 Range/Units 02:49 04:09 04:10 WBC 11.7 H (3.8-10.6) k/uL RBC 2.49 L (3.80-5.40) m/uL Hgb 7.6 L D (11.4-16.0) gm/dL Hct 23.8 L (34.0-46.0) % Plt Count 126 L (150-450) k/uL Neutrophils # 9.5 H (1.3-7.7) k/uL Lymphocytes # (1.0-4.8) k/uL PT (9.0-12.0) sec INR (<1.2) ABG pH (7.35-7.45) ABG pO2 (83-108) mmHg ABG Total CO2 (19-24) mmol/L ABG O2 Saturation (94-97) % Sodium (137-145) mmol/L Chloride (98-107) mmol/L Carbon Dioxide (22-30) mmol/L Creatinine (0.52-1.04) mg/dL Glucose (74-99) mg/dL POC Glucose (mg/dL) 124 H 109 H (75-99) mg/dL Calcium (8.4-10.2) mg/dL Ionized Calcium Brenda (4.5-5.3) mg/dL AST (14-36) U/L ALT (4-34) U/L Total Protein (6.3-8.2) g/dL Albumin (3.5-5.0) g/dL Crossmatch 06/22/20 06/22/20 06/22/20 Range/Units 04:10 04:10 05:56 WBC (3.8-10.6) k/uL RBC (3.80-5.40) m/uL Hgb (11.4-16.0) gm/dL Hct (34.0-46.0) % Plt Count (150-450) k/uL Neutrophils # (1.3-7.7) k/uL Lymphocytes # (1.0-4.8) k/uL PT 12.1 H (9.0-12.0) sec INR 1.2 H (<1.2) ABG pH (7.35-7.45) ABG pO2 (83-108) mmHg ABG Total CO2 (19-24) mmol/L ABG O2 Saturation (94-97) % Sodium 133 L (137-145) mmol/L Chloride 110 H (98-107) mmol/L Carbon Dioxide 21 L (22-30) mmol/L Creatinine 0.39 L (0.52-1.04) mg/dL Glucose 105 H (74-99) mg/dL POC Glucose (mg/dL) 102 H (75-99) mg/dL Calcium 6.5 L (8.4-10.2) mg/dL Ionized Calcium Brenda 4.3 L (4.5-5.3) mg/dL AST 134 H (14-36) U/L ALT 107 H (4-34) U/L Total Protein 4.5 L (6.3-8.2) g/dL Albumin 2.6 L (3.5-5.0) g/dL Crossmatch 06/22/20 06/22/20 06/22/20 Range/Units 07:09 07:58 11:55 WBC (3.8-10.6) k/uL RBC (3.80-5.40) m/uL Hgb (11.4-16.0) gm/dL Hct (34.0-46.0) % Plt Count (150-450) k/uL Neutrophils # (1.3-7.7) k/uL Lymphocytes # (1.0-4.8) k/uL PT (9.0-12.0) sec INR (<1.2) ABG pH (7.35-7.45) ABG pO2 (83-108) mmHg ABG Total CO2 (19-24) mmol/L ABG O2 Saturation (94-97) % Sodium (137-145) mmol/L Chloride (98-107) mmol/L Carbon Dioxide (22-30) mmol/L Creatinine (0.52-1.04) mg/dL Glucose (74-99) mg/dL POC Glucose (mg/dL) 112 H 107 H 127 H (75-99) mg/dL Calcium (8.4-10.2) mg/dL Ionized Calcium Brenda (4.5-5.3) mg/dL AST (14-36) U/L ALT (4-34) U/L Total Protein (6.3-8.2) g/dL Albumin (3.5-5.0) g/dL Crossmatch 06/22/20 Range/Units 13:29 WBC (3.8-10.6) k/uL RBC (3.80-5.40) m/uL Hgb (11.4-16.0) gm/dL Hct (34.0-46.0) % Plt Count (150-450) k/uL Neutrophils # (1.3-7.7) k/uL Lymphocytes # (1.0-4.8) k/uL PT (9.0-12.0) sec INR (<1.2) ABG pH (7.35-7.45) ABG pO2 (83-108) mmHg ABG Total CO2 (19-24) mmol/L ABG O2 Saturation (94-97) % Sodium (137-145) mmol/L Chloride (98-107) mmol/L Carbon Dioxide (22-30) mmol/L Creatinine (0.52-1.04) mg/dL Glucose (74-99) mg/dL POC Glucose (mg/dL) 148 H (75-99) mg/dL Calcium (8.4-10.2) mg/dL Ionized Calcium Brenda (4.5-5.3) mg/dL AST (14-36) U/L ALT (4-34) U/L Total Protein (6.3-8.2) g/dL Albumin (3.5-5.0) g/dL Crossmatch Assessment and Plan Plan: Assessment: #1. Severe mitral valve regurgitation, CHF, with diastolic dysfunction, status post mitral valve replacement, ligation of the left atrial appendage, and AP aortic ultrasonography, postoperative day 1, OR exit time at 1212 #2. Routine postoperative ventilator management, and patient was successfully extubated at 5 hours and 12 minutes following OR exit time, at 1700 on postoperative day 0 #3. Leukocytosis, possibly reactive, improving #4. Recent hospitalization for acute exacerbation of CHF secondary to severe mitral regurgitation, and diastolic dysfunction #5. Straight of anxiety and depression #6. Essential hypertension #7. History of Crohn's disease #8. ADHD #9. History of pulmonary hypertension likely related to valvular heart disease #10. Acute blood loss anemia, expected outcome of mitral valve repair surgery Plan: Continue encouraging deep breathing and coughing, continue encouraging ambulation, incentive spirometry use, hemodynamically patient is very stable, PA catheter has been removed, chest tube output noted, today's chest x-ray has been reviewed, patient is on room air. Patient is doing well postoperative day 1. We'll continue to closely follow with CT surgery. Continue breathing treatments as needed, deep breathing and coughing, continue monitoring the intensive care unit. I performed a history & physical examination of the patient and discussed their management with my nurse practitioner, Silva Pepper. I reviewed the nurse practitioner's note and agree with the documented findings and plan of care. L zoe sounds are positive for clear breath sounds. The findings and the impression was discussed with the patient. I attest to the documentation by the nurse practitioner. Time with Patient: Less than 30
[2020-06-22] MEDS: INSULIN ASPART (NovoLOG) 100 UNIT/ML VIAL SQ SCH ×3 (15:34→20:25)
[2020-06-22] MEDS: LIDOCAINE 5% PATCH TOPICAL SCH (15:36)
[2020-06-22] MEDS: FUROSEMIDE 10 MG/ML 2 ML VIAL IV SCH ×2 (15:45→21:59)
--- NOTE | 2020-06-22 16:09 | P.PN ---
Subjective Progress Note Date: 06/22/20 (delayed charting seen at 1100) Principal diagnosis: CHF Patient is a 45-year-old female with a history of hypertension, fibromyalgia, rheumatoid arthritis, IBS, and severe mitral regurgitation who presented to the hospital for mitral valve replacement. She was recently hospitalized here from 06/09/2020 - 06/14/2020 secondary to acute congestive heart failure. During that evaluation she was found to have severe mitral regurgitation, and normal coronary arteries on cath. Subsequently they've planned for mitral valve replacement. On 06/21/2020 she underwent mitral valve replacement, ligation of the last atrial appendage, and epi-aortic US. She was subsequently admitted to the ICU. She was intubated, sedated, with mediastinal and chest tubes in place. She was successfully extubated the evening of 06/21. Patient seen and examined at bedside. She states she was having back spasms earlier today but those have resolved. She denies any nausea, her chest disc omfort is well controlled, back pain getting better, no shortness of breath. Feels overall well. We discussed that she would like a new PCP and is considering Ladi Sanon. She also is in need of a new psychiatrist is Dr. Trujillo which has left. General: non toxic, mild distress, appears at stated age Derm: warm, dry Head: atraumatic, normocephalic, symmetric Eyes: EOMI, no lid lag, anicteric sclera Mouth: no lip lesion, mucus membranes moist Cardiovascular: S1S2 reg, no murmur, positive posterior tibial pulse bilateral, mediastinal and chest tubes Lungs: Decreased bs bilateral, no rhonchi, no rales , no accessory muscle use Abdominal: soft, nontender to palpation, no guarding, no appreciable organomegaly Ext: no gross muscle atrophy, no edema, no contractures Neuro: CN II-XI grossly intact, no focal neuro deficits Psych: Alert, oriented, appropriate affect Severe mitral regurg s/p replacement- management by CVT Transaminitis, improving - suspect reactive to volume changes - repeat in AM - hepatitis profile is negative Hyponatremia, - possibly related to fluids use - receiving Lasix - repeat in AM Acute blood loss anemia and thromobocytopenia, post op anticipated - follow CBC - After first post-op BM start oral iron X 30 days Diastolic CHF, EF 55%, pulm HTN - not exacerbated - Metoprolol Leukocytosis, improving - suspect reactive - follow CBC HTN, currently controlled - lopressor - follow BP Fibromyalgia - anticipate this will make pain management more difficult - resume flexaril, norco IBS - not chronically on treatment - As need immodium if needed Anxiety - Klonopin - Lexapro Thank you for allowing us to participate in the care of this pleasant patient. Do not hesitate to contact us with questions. Someone can be reached from the [facility] hospitalist group all hours of the day at [phone] or via perfect serve. Objective - Vital Signs Vital signs: Vital Signs Temp 98 F 06/22/20 12:00 Pulse 77 06/22/20 15:00 Resp 19 06/22/20 15:00 BP 84/56 06/22/20 15:00 Pulse Ox 93 L 06/22/20 15:00 Intake & Output 06/21/20 06/22/20 06/22/20 18:59 06:59 18:59 Intake Total 971.621 8925.618 1196 Output Total 965 1060 794 Balance -42.027 1035.618 402 Weight 94.8 kg Intake: IV 63 403 336 0.9 ns CO/CI 60 310 20 Lactated Ringers 1,000 ml 280 @ 20 mls/hr IV .Q24H [facility] Rx#:[id number] Pressure bags 93 36 Intake, IV Titration 907.900 9482.618 100 Amount Albumin Human 5% 250 ml 250 500 In Empty Bag 1 bag @ 250 mls/hr IVPB Q1HR PRN Rx#: [id number] Calcium Gluconate 2 gm In 100 Sodium Chloride 0.9% 100 ml @ 100 mls/hr IVPB ONCE PRN Rx#:[id number] Insulin Regular 100 unit 4.747 2.618 In Sodium Chloride 0.9% 100 ml @ Per Protocol IV .Q0M [facility] Rx#:[id number] Lactated Ringers 1,000 ml 350 550 @ 20 mls/hr IV .Q24H [facility] Rx#:[id number] Magnesium Sulfate-D5w Pmx 100 1 gm In Dextrose/Water 1 100ml.bag @ 100 mls/hr IVPB Q1H [facility] Rx#: [id number] Vancomycin 1,500 mg In 250 250 Sodium Chloride 0.9% 250 ml @ 125 mls/hr IVPB Q8H [facility] Rx#:[id number] propofoL 1,000 mg In 5.226 Empty Bag 1 bag @ Titrate IV .Q0M [facility] Rx#: [id number] Oral 290 760 Output: Chest Tube Drainage 270 380 390 Chest Tube Bilateral 85 165 180 Chest Tube Mediastinal 185 215 210 Urine 695 680 404 Other: Voiding Method Indwelling Catheter Indwelling Catheter Indwelling Catheter ABP, PAP, CO, CI - Last Documented Arterial Blood Pressure 91/56 Pulmonary Artery Pressure 42/25 Cardiac Output 7.9 Cardiac Index 4 - Labs CBC & Chem 7: 06/22/20 04:10 06/22/20 04:10 Labs: Abnormal Lab Results - Last 24 Hours (Table) 06/14/20 06/21/20 06/21/20 Range/Units 10:59 15:54 16:30 WBC (3.8-10.6) k/uL RBC (3.80-5.40) m/uL Hgb (11.4-16.0) gm/dL Hct (34.0-46.0) % Plt Count (150-450) k/uL Neutrophils # (1.3-7.7) k/uL Lymphocytes # (1.0-4.8) k/uL PT (9.0-12.0) sec INR (<1.2) ABG pH 7.33 L (7.35-7.45) ABG pO2 168 H (83-108) mmHg ABG Total CO2 25 H (19-24) mmol/L ABG O2 Saturation 99.0 H (94-97) % Sodium (137-145) mmol/L Chloride (98-107) mmol/L Carbon Dioxide (22-30) mmol/L Creatinine (0.52-1.04) mg/dL Glucose (74-99) mg/dL POC Glucose (mg/dL) 145 H (75-99) mg/dL Calcium (8.4-10.2) mg/dL Ionized Calcium Brenda (4.5-5.3) mg/dL AST (14-36) U/L ALT (4-34) U/L Total Protein (6.3-8.2) g/dL Albumin (3.5-5.0) g/dL Crossmatch See Detail 08/27/20 08/27/20 08/27/20 Range/Units 17:02 18:22 18:22 WBC 16.4 H (3.8-10.6) k/uL RBC 3.50 L (3.80-5.40) m/uL Hgb 10.5 L (11.4-16.0) gm/dL Hct 32.5 L (34.0-46.0) % Plt Count (150-450) k/uL Neutrophils # 14.8 H (1.3-7.7) k/uL Lymphocytes # 0.7 L (1.0-4.8) k/uL PT (9.0-12.0) sec INR (<1.2) ABG pH (7.35-7.45) ABG pO2 (83-108) mmHg ABG Total CO2 (19-24) mmol/L ABG O2 Saturation (94-97) % Sodium (137-145) mmol/L Chloride (98-107) mmol/L Carbon Dioxide (22-30) mmol/L Creatinine (0.52-1.04) mg/dL Glucose (74-99) mg/dL POC Glucose (mg/dL) 133 H 119 H (75-99) mg/dL Calcium (8.4-10.2) mg/dL Ionized Calcium Brenda (4.5-5.3) mg/dL AST (14-36) U/L ALT (4-34) U/L Total Protein (6.3-8.2) g/dL Albumin (3.5-5.0) g/dL Crossmatch 06/21/20 06/21/20 06/21/20 Range/Units 18:59 20:08 20:58 WBC (3.8-10.6) k/uL RBC (3.80-5.40) m/uL Hgb (11.4-16.0) gm/dL Hct (34.0-46.0) % Plt Count (150-450) k/uL Neutrophils # (1.3-7.7) k/uL Lymphocytes # (1.0-4.8) k/uL PT (9.0-12.0) sec INR (<1.2) ABG pH (7.35-7.45) ABG pO2 (83-108) mmHg ABG Total CO2 (19-24) mmol/L ABG O2 Saturation (94-97) % Sodium (137-145) mmol/L Chloride (98-107) mmol/L Carbon Dioxide (22-30) mmol/L Creatinine (0.52-1.04) mg/dL Glucose (74-99) mg/dL POC Glucose (mg/dL) 103 H 125 H 143 H (75-99) mg/dL Calcium (8.4-10.2) mg/dL Ionized Calcium Brenda (4.5-5.3) mg/dL AST (14-36) U/L ALT (4-34) U/L Total Protein (6.3-8.2) g/dL Albumin (3.5-5.0) g/dL Crossmatch 06/21/20 06/21/20 06/21/20 Range/Units 21:58 22:59 23:50 WBC (3.8-10.6) k/uL RBC (3.80-5.40) m/uL Hgb (11.4-16.0) gm/dL Hct (34.0-46.0) % Plt Count (150-450) k/uL Neutrophils # (1.3-7.7) k/uL Lymphocytes # (1.0-4.8) k/uL PT (9.0-12.0) sec INR (<1.2) ABG pH (7.35-7.45) ABG pO2 (83-108) mmHg ABG Total CO2 (19-24) mmol/L ABG O2 Saturation (94-97) % Sodium (137-145) mmol/L Chloride (98-107) mmol/L Carbon Dioxide (22-30) mmol/L Creatinine (0.52-1.04) mg/dL Glucose (74-99) mg/dL POC Glucose (mg/dL) 134 H 114 H 108 H (75-99) mg/dL Calcium (8.4-10.2) mg/dL Ionized Calcium Brenda (4.5-5.3) mg/dL AST (14-36) U/L ALT (4-34) U/L Total Protein (6.3-8.2) g/dL Albumin (3.5-5.0) g/dL Crossmatch 06/22/20 06/22/20 06/22/20 Range/Units 00:49 02:49 04:09 WBC (3.8-10.6) k/uL RBC (3.80-5.40) m/uL Hgb (11.4-16.0) gm/dL Hct (34.0-46.0) % Plt Count (150-450) k/uL Neutrophils # (1.3-7.7) k/uL Lymphocytes # (1.0-4.8) k/uL PT (9.0-12.0) sec INR (<1.2) ABG pH (7.35-7.45) ABG pO2 (83-108) mmHg ABG Total CO2 (19-24) mmol/L ABG O2 Saturation (94-97) % Sodium (137-145) mmol/L Chloride (98-107) mmol/L Carbon Dioxide (22-30) mmol/L Creatinine (0.52-1.04) mg/dL Glucose (74-99) mg/dL POC Glucose (mg/dL) 121 H 124 H 109 H (75-99) mg/dL Calcium (8.4-10.2) mg/dL Ionized Calcium Brenda (4.5-5.3) mg/dL AST (14-36) U/L ALT (4-34) U/L Total Protein (6.3-8.2) g/dL Albumin (3.5-5.0) g/dL Crossmatch 06/22/20 06/22/20 06/22/20 Range/Units 04:10 04:10 04:10 WBC 11.7 H (3.8-10.6) k/uL RBC 2.49 L (3.80-5.40) m/uL Hgb 7.6 L D (11.4-16.0) gm/dL Hct 23.8 L (34.0-46.0) % Plt Count 126 L (150-450) k/uL Neutrophils # 9.5 H (1.3-7.7) k/uL Lymphocytes # (1.0-4.8) k/uL PT 12.1 H (9.0-12.0) sec INR 1.2 H (<1.2) ABG pH (7.35-7.45) ABG pO2 (83-108) mmHg ABG Total CO2 (19-24) mmol/L ABG O2 Saturation (94-97) % Sodium 133 L (137-145) mmol/L Chloride 110 H (98-107) mmol/L Carbon Dioxide 21 L (22-30) mmol/L Creatinine 0.39 L (0.52-1.04) mg/dL Glucose 105 H (74-99) mg/dL POC Glucose (mg/dL) (75-99) mg/dL Calcium 6.5 L (8.4-10.2) mg/dL Ionized Calcium Brenda 4.3 L (4.5-5.3) mg/dL AST 134 H (14-36) U/L ALT 107 H (4-34) U/L Total Protein 4.5 L (6.3-8.2) g/dL Albumin 2.6 L (3.5-5.0) g/dL Crossmatch 06/22/20 06/22/20 06/22/20 Range/Units 05:56 07:09 07:58 WBC (3.8-10.6) k/uL RBC (3.80-5.40) m/uL Hgb (11.4-16.0) gm/dL Hct (34.0-46.0) % Plt Count (150-450) k/uL Neutrophils # (1.3-7.7) k/uL Lymphocytes # (1.0-4.8) k/uL PT (9.0-12.0) sec INR (<1.2) ABG pH (7.35-7.45) ABG pO2 (83-108) mmHg ABG Total CO2 (19-24) mmol/L ABG O2 Saturation (94-97) % Sodium (137-145) mmol/L Chloride (98-107) mmol/L Carbon Dioxide (22-30) mmol/L Creatinine (0.52-1.04) mg/dL Glucose (74-99) mg/dL POC Glucose (mg/dL) 102 H 112 H 107 H (75-99) mg/dL Calcium (8.4-10.2) mg/dL Ionized Calcium Brenda (4.5-5.3) mg/dL AST (14-36) U/L ALT (4-34) U/L Total Protein (6.3-8.2) g/dL Albumin (3.5-5.0) g/dL Crossmatch 06/22/20 06/22/20 Range/Units 11:55 13:29 WBC (3.8-10.6) k/uL RBC (3.80-5.40) m/uL Hgb (11.4-16.0) gm/dL Hct (34.0-46.0) % Plt Count (150-450) k/uL Neutrophils # (1.3-7.7) k/uL Lymphocytes # (1.0-4.8) k/uL PT (9.0-12.0) sec INR (<1.2) ABG pH (7.35-7.45) ABG pO2 (83-108) mmHg ABG Total CO2 (19-24) mmol/L ABG O2 Saturation (94-97) % Sodium (137-145) mmol/L Chloride (98-107) mmol/L Carbon Dioxide (22-30) mmol/L Creatinine (0.52-1.04) mg/dL Glucose (74-99) mg/dL POC Glucose (mg/dL) 127 H 148 H (75-99) mg/dL Calcium (8.4-10.2) mg/dL Ionized Calcium Brenda (4.5-5.3) mg/dL AST (14-36) U/L ALT (4-34) U/L Total Protein (6.3-8.2) g/dL Albumin (3.5-5.0) g/dL Crossmatch
[2020-06-22 16:58] LABS: Glucose,Whole Blood 92 mg/dL (75-99)
[2020-06-22] MEDS ORDERED: VANCOMYCIN TROUGH DUE 1 EACH MISC MISCELLANE ONE (17:00)
[2020-06-22] MEDS: HYDROcodone/APAP 7.5-325MG 1 EACH TAB PO PRN (17:07)
[2020-06-22 20:21] LABS: Glucose,Whole Blood 96 mg/dL (75-99)
[2020-06-22] MEDS: SENNOSIDES-DOCUSATE SODIUM 1 EACH TAB PO SCH (20:22)
[2020-06-22] MEDS: ESCITALOPRAM 10 MG TAB PO SCH (20:48)
[2020-06-22] MEDS: traZODone HCL 50 MG TAB PO SCH (20:48)
[2020-06-22] MEDS ORDERED: traZODone HCL 50 MG TAB PO ONE (21:24)
[2020-06-23] MEDS: HYDROcodone/APAP 7.5-325MG 1 EACH TAB PO PRN ×4 (00:16→20:28)
[2020-06-23] MEDS: VANCOMYCIN 1,500 MG in SODIUM CHLORIDE 0.9% 250 ML IVPB SCH ×2 (02:38→10:38)
[2020-06-23] MEDS: KETOROLAC 15 MG/ML 1 ML VIAL IVP SCH ×4 (03:28→20:29)
[2020-06-23 05:17] LABS: Basophils % (A) 0 %; Eosinophils # (A) 0.1 k/uL (0-0.7); Eosinophils % (A) 1 %; HCT 23.7 % (34.0-46.0); HGB 7.7 gm/dL (11.4-16.0); Lymphocytes # (A) 1.6 k/uL (1.0-4.8); Lymphocytes % (A) 16 %; MCH 30.7 pg (25.0-35.0); MCHC 32.5 g/dL (31.0-37.0); MCV 94.6 fL (80.0-100.0); Mean Platelet Volume 8.1; Monocytes # (A) 0.6 k/uL (0-1.0); Monocytes % (A) 6 %; Neutrophils # (A) 7.7 k/uL (1.3-7.7); Neutrophils % (A) 76 %; Platelet Count 118 k/uL (150-450); RDW 13.4 % (11.5-15.5); WBC 10.2 k/uL (3.8-10.6)
[2020-06-23 05:22] LABS: Ionized Calcium 4.8 mg/dL (4.5-5.3)
[2020-06-23 05:24] LABS: INR 1.1 (<1.2)
[2020-06-23 05:29] LABS: ALT 80 U/L (4-34); AST 66 U/L (14-36); African American GFR (CKD) >90 (>60 ml/min/1.73 sqM); Albumin 2.8 g/dL (3.5-5.0); Alkaline Phosphatase 46 U/L (38-126); Anion Gap 4 mmol/L; Blood Urea Nitrogen 10 mg/dL (7-17); Calcium 8.1 mg/dL (8.4-10.2); Carbon Dioxide 25 mmol/L (22-30); Chloride 104 mmol/L (98-107); Glucose 122 mg/dL (74-99); Magnesium 1.8 mg/dL (1.6-2.3); Non-African American GFR(CKD) >90 (>60 ml/min/1.73 sqM); Potassium 4.5 mmol/L (3.5-5.1); Sodium 133 mmol/L (137-145); Total Bilirubin 0.4 mg/dL (0.2-1.3)
[2020-06-23] MEDS: INSULIN ASPART (NovoLOG) 100 UNIT/ML VIAL SQ SCH ×4 (06:37→20:21)
[2020-06-23] MEDS: ASCORBIC ACID 500 MG TAB PO SCH ×2 (06:50→17:39)
[2020-06-23] MEDS: PANTOPRAZOLE 40 MG TABLET PO SCH (06:50)
[2020-06-23] MEDS: CYCLOBENZAPRINE 10 MG TAB PO PRN ×3 (06:50→17:40)
[2020-06-23] MEDS: FERROUS SULFATE 325 MG TAB PO SCH ×2 (06:50→17:40)
[2020-06-23] MEDS: MAGNESIUM SULFATE-D5W PMX 1 GM in DEXTROSE/WATER 1 100ML.BAG IVPB SCH ×2 (07:46→09:16)
--- NOTE | 2020-06-23 07:58 | P.PN ---
Subjective Progress Note Date: 06/23/20 Principal diagnosis: Severe mitral regurgitation consistent with rheumatic valvular heart disease. Previous medical history of hypertension, chronic grade 2 diastolic heart failur e, chronic low back pain/fibromyalgia, Crohn's disease, anxiety/depression, ADHD, rheumatoid arthritis, PTSD, obesity POD #2 mitral valve replacement with a 25/33 mm On-X mechanical mitral valve, ligation of the left atrial appendage, epi-aortic ultrasonography Postoperative acute blood loss anemia, expected outcome of surgery given hemodilution and cardiopulmonary bypass pump Postoperative transaminitis, unexpected, likely due to volume changes Postoperative leukocytosis, likely reactive The patient is currently sitting up in a recliner in no acute distress. States pain is much better controlled. Denies shortness of breath. Remains in normal sinus rhythm and hemodynamically stable, blood pressures have been marginal-mid 80s to low 100s systolic but mean pressures have been adequate with mid 60s-mid 70s. Currently has epicardial pacemaker wires present along with left and right pleural chest tubes. Patient ambulated in the hallway multiple times yesterday without difficulty. No new concerns. Objective - Vital Signs Vital signs: Vital Signs Temp 98.4 F 06/23/20 04:00 Pulse 79 06/23/20 07:00 Resp 12 06/23/20 07:00 BP 93/62 06/23/20 07:00 Pulse Ox 95 06/23/20 07:00 Intake & Output 06/22/20 06/23/20 06/23/20 18:59 06:59 18:59 Intake Total 1275 913 Output Total 1329 1266 Balance -54 -353 Weight 94.8 kg Intake: IV 415 123 0.9 ns CO/CI 20 Lactated Ringers 1,000 ml 350 120 @ 20 mls/hr IV .Q24H [facility] Rx#:[id number] Pressure bags 45 3 Intake, IV Titration 100 Amount Calcium Gluconate 2 gm In 100 Sodium Chloride 0.9% 100 ml @ 100 mls/hr IVPB ONCE PRN Rx#:[id number] Oral 760 790 Output: Chest Tube Drainage 450 239 Chest Tube Bilateral 180 Chest Tube Mediastinal 210 Left Pleural 32 67 Right PLeural 28 172 Urine 879 1027 Other: Voiding Method Indwelling Catheter Indwelling Catheter ABP, PAP, CO, CI - Last Documented Arterial Blood Pressure 91/56 Pulmonary Artery Pressure 42/25 Cardiac Output 7.9 Cardiac Index 4 - Constitutional General appearance: Present: cooperative, no acute distress, obese - Respiratory Details: Lungs sounds diminished bilaterally. Respirations even, nonlabored. Currently on room air with oxygen saturation 96%. Able to achieve 750 mL on her incentive spirometry. Strong cough. Left pleural chest tube present to continuous wall suction, 35 mL serosanguineous drainage overnight, 150 mL since splitting tubes yesterday afternoon. Right pleural chest tube to continuous wall suction, 60 mL serosanguineous drainage overnight, 210 mL since splitting tubes yesterday a fternoon. No air leaks present. - Cardiovascular Details: S1, S2 present, positive valvular click. Regular rate and rhythm, sinus rhythm on telemetry. Sternum stable. A/V epicardial pacemaker wires present, grounded. Palpable peripheral pulses bilaterally. Trace bilateral lower extremity edema present. Heart hugger in place with patient demonstrating appropriate use. Antiembolism stockings, SCDs present. - Gastrointestinal Gastrointestinal Comment(s): Abdomen soft, nontender, nondistended. Active bowel sounds present 4 quadrants. Tolerating diet. Positive flatus, negative bowel movement. - Genitourinary Genitourinary Comment(s): Carvajal present draining clear, yellow urine. Output 30-50 mL per hour overnight, excellent diuresis with Lasix, 1876 mL output in the last 24 hours. - Integumentary Integumentary Comment(s): Skin is warm and dry with evidence of good perfusion. Anterior chest incision well approximated and covered with dry intact dressing. - Neurologic Neurologic: Present: CNII-XII intact - Musculoskeletal Musculoskeletal: Present: gait normal, strength equal bilaterally - Psychiatric Psychiatric: Present: A&O x's 3, appropriate affect, intact judgment & insight - Allied health notes Allied health notes reviewed: nursing - Labs CBC & Chem 7: 06/23/20 04:35 06/23/20 04:35 Labs: Abnormal Lab Results - Last 24 Hours (Table) 06/22/20 06/22/20 06/22/20 Range/Units 07:58 11:55 13:29 RBC (3.80-5.40) m/uL Hgb (11.4-16.0) gm/dL Hct (34.0-46.0) % Plt Count (150-450) k/uL Sodium (137-145) mmol/L Glucose (74-99) mg/dL POC Glucose (mg/dL) 107 H 127 H 148 H (75-99) mg/dL Calcium (8.4-10.2) mg/dL AST (14-36) U/L ALT (4-34) U/L Total Protein (6.3-8.2) g/dL Albumin (3.5-5.0) g/dL 06/23/20 06/23/20 Range/Units 04:35 04:35 RBC 2.50 L (3.80-5.40) m/uL Hgb 7.7 L (11.4-16.0) gm/dL Hct 23.7 L (34.0-46.0) % Plt Count 118 L (150-450) k/uL Sodium 133 L (137-145) mmol/L Glucose 122 H (74-99) mg/dL POC Glucose (mg/dL) (75-99) mg/dL Calcium 8.1 L (8.4-10.2) mg/dL AST 66 H (14-36) U/L ALT 80 H (4-34) U/L Total Protein 5.0 L (6.3-8.2) g/dL Albumin 2.8 L (3.5-5.0) g/dL - Imaging and Cardiology Chest x-ray: image reviewed Assessment and Plan Assessment: 1. 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 Hypertension 3. Chronic grade 2 diastolic heart failure 4. Chronic low back pain/fibromyalgia 5. Crohn's disease 6. Anxiety/depression 7. ADHD 8. Rheumatoid arthritis 9. PTSD 10. Obesity 11. Postoperative acute blood loss anemia 12. Postoperative transaminitis 13. Postoperative leukocytosis Plan: 1. Continue aspirin, statin, beta imani therapy. Will increase beta imani therapy as tolerated 2. Encourage incentive spirometry 10 times every hour while awake. Bronchodilators per pulmonology 3. Increase activity, ambulate as tolerated. PT/OT/cardiac rehab following 4. Will initiate anticoagulation with Coumadin, 7.5 mg today. Goal INR 2-3 for 3 months, then 1.5-2 thereafter. Will draw daily PT/INR 5. Will monitor daily labs and x-rays. Electrolyte replacement per protocol. No transfusion at this time, iron/vitamin C added yesterday. Continue IV Lasix 6. GI/DVT prophylaxis 7. Pain control with current medication regimen. 8. Continue Flexeril to 10 mg 3 times daily as needed. 9. Insulin management per primary care service. Patient is not diabetic, preoperative hemoglobin A1c 4.7% 10. Will discontinue epicardial pacemaker wires. Patient should remain on bedrest 1 hour post-removal 11. Will discontinue pleural chest tubes 12. Discontinue Carvajal. May bladder scan and straight cath for greater than [address] transfer orders for 3 S. cardiac stepdown unit. May transfer when bed available 14. Discharge planning in progress. Anticipate discharge to home with home care in 48-72 hours dependent on when patient's Coumadin level becomes therapeutic 15. More recommendations to follow Time with Patient: Greater than 30
--- NOTE | 2020-06-23 08:12 | XR ---
EXAMINATION TYPE: XR chest 1V portable DATE OF EXAM: 06/23/2020 Comparison: 06/22/2020 Clinical History: 45-year-old female Post Operative Cardiac Surgery Findings: Bilateral chest tubes are in place. No appreciable pneumothorax. Some linear external artifact projec ts over the apex but the density continues outside the thoracic cage. Some patchy bibasilar opacities remain. Median sternotomy wires with prosthetic cardiac valve. Heart normal size. Somewhat low lung volumes. Impression: Somewhat low lung volumes with bilateral chest tubes. No appreciable pneumothorax. Patchy bibasilar o pacities, likely atelectasis.
[2020-06-23] MEDS: IPRATROPIUM-ALBUTEROL 3 ML NEB INHALATION SCH ×4 (08:15→18:48)
[2020-06-23] MEDS: HEPARIN SODIUM,PORCINE 5,000 UNIT/ML 1 ML VIAL SQ SCH ×3 (08:42→15:39)
[2020-06-23] MEDS: ASPIRIN 325 MG TAB PO SCH (09:16)
[2020-06-23] MEDS: ATORVASTATIN 40 MG TAB PO SCH (09:16)
[2020-06-23] MEDS: LIDOCAINE 5% PATCH TOPICAL SCH (09:18)
[2020-06-23] MEDS: clonazePAM 0.5 MG TAB PO SCH ×2 (09:21→20:28)
[2020-06-23] MEDS: FUROSEMIDE 10 MG/ML 2 ML VIAL IV SCH ×2 (09:26→20:29)
--- NOTE | 2020-06-23 11:57 | P.PN ---
Subjective Progress Note Date: 06/23/20 On 06/23/2020, the patient is postop day #2 following a mitral valve replacement. She also underwent a left atrial appendage ligation. The patient was extubated without any major difficulties and currently she is on room air oxygen. Chest x-rays showing some limited atelectatic changes in the upper lo bes bilaterally. She is using incentive spirometer. She is ambulating. She is pulling and more than 1000 on incentive spirometer. She is hemodynamically stable. The mediastinal chest tube was removed yesterday. Is possible also that the patient will have the left-sided pleural chest tube also taken out. No evidence of any pneumothorax and a chest x-ray patient with limited stable. She is producing adequate amount of urine output. No altered mentation. Pain is under good control for now. Note that she had severe mitral valve regurgitation consistent with rheumatic heart disease. She also has history of hypertension, diastolic heart failure, chronic back pain and fibromyalgia in addition to chronic anxiety and depression. She has history of RA PTSD and ADHD. Objective - Vital Signs Vital signs: Vital Signs Temp 98.2 F 06/23/20 08:30 Pulse 80 06/23/20 11:30 Resp 18 06/23/20 11:30 BP 92/80 06/23/20 11:30 Pulse Ox 92 L 06/23/20 11:30 Intake & Output 06/22/20 06/23/20 06/23/20 18:59 06:59 18:59 Intake Total 1275 913 490 Output Total 1329 1266 495 Balance -54 -353 -5 Weight 94.8 kg Intake: IV 415 123 490 0.9 ns CO/CI 20 Lactated Ringers 1,000 ml 350 120 40 @ 20 mls/hr IV .Q24H [facility] Rx#:[id number] Magnesium Sulfate-D5w Pmx 200 1 gm In Dextrose/Water 1 100ml.bag @ 100 mls/hr IVPB Q1H [facility] Rx#: [id number] Pressure bags 45 3 Vancomycin 1,500 mg In 250 Sodium Chloride 0.9% 250 ml @ 125 mls/hr IVPB Q8H [facility] Rx#:[id number] Intake, IV Titration 100 Amount Calcium Gluconate 2 gm In 100 Sodium Chloride 0.9% 100 ml @ 100 mls/hr IVPB ONCE [facility]N Rx#:[id number] Oral 760 790 Output: Chest Tube Drainage 450 239 130 Chest Tube Bilateral 180 Chest Tube Mediastinal 210 Left Pleural 32 67 30 Right PLeural 28 172 100 Urine 879 1027 365 Other: Voiding Method Indwelling Catheter Indwelling Catheter Indwelling Catheter ABP, PAP, CO, CI - Last Documented Arterial Blood Pressure 91/56 Pulmonary Artery Pressure 42/25 Cardiac Output 7.9 Cardiac Index 4 - Exam - Constitutional General appearance: Present: cooperative, no acute distress, obese - Respiratory Details: Lungs sounds diminished bilaterally. Respirations even, nonlabored. Currently on room air with oxygen saturation 96%. Able to achieve 750 mL on her incentive spirometry. Strong cough. Left pleural chest tube present to continuous wall suction, 35 mL serosanguineous drainage overnight, 150 mL since splitting tubes yesterday afternoon. Right pleural chest tube to continuous wall suction, 60 mL serosanguineous drainage overnight, 210 mL since splitting tubes yesterday afternoon. No air leaks present. - Cardiovascular Details: S1, S2 present, positive valvular click. Regular rate and rhythm, sinus rhythm on telemetry. Sternum stable. A/V epicardial pacemaker wires present, grounded. Palpable peripheral pulses bilaterally. Trace bilateral lower extremity edema present. Heart hugger in place with patient demonstrating appropriate use. Antiembolism stockings, SCDs present. - Gastrointestinal Gastrointestinal Comment(s): Abdomen soft, nontender, nondistended. Active bowel sounds present 4 quadrants. Tolerating diet. Positive flatus, negative bowel movement. - Genitourinary Genitourinary Comment(s): Carvajal present draining clear, yellow urine. Output 30-50 mL per hour overnight, excellent diuresis with Lasix, 1876 mL output in the last 24 hours. - Integumentary Integumentary Comment(s): Skin is warm and dry with evidence of good perfusion. Anterior chest incision well approximated and covered with dry intact dressing. - Neurologic Neurologic: Present: CNII-XII intact - Musculoskeletal Musculoskeletal: Present: gait normal, strength equal bilaterally - Psychiatric Psychiatric: Present: A&O x's 3, appropriate affect, intact judgment & insight - Labs CBC & Chem 7: 06/23/20 04:35 06/23/20 04:35 Labs: Abnormal Lab Results - Last 24 Hours (Table) 06/22/20 06/22/20 06/23/20 Range/Units 11:55 13:29 04:35 RBC 2.50 L (3.80-5.40) m/uL Hgb 7.7 L (11.4-16.0) gm/dL Hct 23.7 L (34.0-46.0) % Plt Count 118 L (150-450) k/uL Sodium (137-145) mmol/L Glucose (74-99) mg/dL POC Glucose (mg/dL) 127 H 148 H (75-99) mg/dL Calcium (8.4-10.2) mg/dL AST (14-36) U/L ALT (4-34) U/L Total Protein (6.3-8.2) g/dL Albumin (3.5-5.0) g/dL 06/23/20 Range/Units 04:35 RBC (3.80-5.40) m/uL Hgb (11.4-16.0) gm/dL Hct (34.0-46.0) % Plt Count (150-450) k/uL Sodium 133 L (137-145) mmol/L Glucose 122 H (74-99) mg/dL POC Glucose (mg/dL) (75-99) mg/dL Calcium 8.1 L (8.4-10.2) mg/dL AST 66 H (14-36) U/L ALT 80 H (4-34) U/L Total Protein 5.0 L (6.3-8.2) g/dL Albumin 2.8 L (3.5-5.0) g/dL Assessment and Plan Plan: 1 severe mitral regurgitation post mitral valve replacement. The patient had a placement of a mechanical mitral valve and the patient is postop day #2. 2 post thoracotomy and the patient was extubated without any major difficulties and currently she is on room air oxygen, , and the patient has mediastinal chest tubes removed and the patient has bilateral pleural chest tube still in place with out any evidence of air leak. The chest x-ray from today shows some atelectatic changes in lung bilaterally. Nevertheless, the patient is using incentive spirometer. 3 grade 3 diastolic heart failure 4 hypertension 5 chronic disease 6 chronic back pain of her neurologic 7 chronic anxiety and depression 8 PTSD 9 rheumatoid arthritis 10 . ADHD Plan The patient will need to start on Coumadin. We'll start Unasyn 0.5 mg of Coumadin with an INR to be itchy between 2.5 and 3 Daily PT/INR monitoring Continue using incentive spirometer as today's chest x-ray shows some atelec tatic changes in the upper lobes Currently on room air oxygen We'll discontinue the epicardial pacemaker wires We'll discontinue pleural chest tube Discontinue the Carvajal catheter Continue aspirin and beta blockers May need to stay in ICU for 24 hours
[2020-06-23 12:02] LABS: Glucose,Whole Blood 122 mg/dL (75-99)
--- NOTE | 2020-06-23 12:20 | P.PN ---
Subjective Progress Note Date: 06/23/20 Principal diagnosis: CHF Patient is a 45-year-old female with a history of hypertension, fibromyalgia, rheumatoid arthritis, IBS, and severe mitral regurgitation who presented to the hospital for mitral valve replacement. She was recently hospitalized here from 06/09/2020 - 06/14/2020 secondary to acute congestive heart failure. During that evaluation she was found to have severe mitral regurgitation, and normal coronary arteries on cath. Subsequently they've plan armond for mitral valve replacement. On 06/21/2020 she underwent mitral valve replacement, ligation of the last atrial appendage, and epi-aortic US. She was subsequently admitted to the ICU. She was intubated, sedated, with mediastinal and chest tubes in place. She was successfully extubated the evening of 06/21 all tubes have been removed. Patient seen and examined at bedside. Had a rough night. Pain is better this morning does better sitting in a chair. No nausea, no shortness of breath, pain manageable Feels as though she will have a bowel movement today. Was up and walking yesterday and today. General: non toxic, mild distress, appears at stated age Derm: warm, dry Head: atraumatic, normocephalic, symmetric Eyes: EOMI, no lid lag, anicteric sclera Mouth: no lip lesion, mucus membranes moist Cardiovascular: S1S2 reg, no murmur, positive posterior tibial pulse bilateral Lungs: Decreased bs bilateral, no rhonchi, no rales , no accessory muscle use Abdominal: soft, nontender to palpation, no guarding, no appreciable organomegaly Ext: no gross muscle atrophy, no edema, no contractures Neuro: CN II-XI grossly intact, no focal neuro deficits Psych: Alert, oriented, appropriate affect Severe mitral regurg s/p valve replacement- management by CVT Transaminitis, improving - suspect reactive to volume changes - no need to continue to follow - hepatitis profile is negative Acute blood loss anemia and thromobocytopenia, post op anticipated - follow CBC - After first post-op BM start oral iron X 30 days Diastolic CHF, EF 55%, pulm HTN - not exacerbated - Metoprolol Hyponatremia, stable - likely related to volume status and lasix use - repeat in AM HTN, currently controlled - lopressor - follow BP Fibromyalgia - flexaril, norco IBS/ Crohn's disease - not chronically on treatment - As need immodium if needed Anxiety/ depression/ PTSD - Klonopin - Lexapro Obesity, BMI 31.8 - outpatient structured weight loss Leukocytosis, resolved Objective - Vital Signs Vital signs: Vital Signs Temp 98.2 F 06/23/20 08:30 Pulse 80 06/23/20 11:30 Resp 18 06/23/20 11:30 BP 92/80 06/23/20 11:30 Pulse Ox 92 L 06/23/20 11:30 Intake & Output 06/22/20 06/23/20 06/23/20 18:59 06:59 18:59 Intake Total 1275 913 490 Output Total 1329 1266 495 Balance -54 -353 -5 Weight 94.8 kg Intake: IV 415 123 490 0.9 ns CO/CI 20 Lactated Ringers 1,000 ml 350 120 40 @ 20 mls/hr IV .Q24H [facility] Rx#:[id number] Magnesium Sulfate-D5w Pmx 200 1 gm In Dextrose/Water 1 100ml.bag @ 100 mls/hr IVPB Q1H [facility] Rx#: [id number] Pressure bags 45 3 Vancomycin 1,500 mg In 250 Sodium Chloride 0.9% 250 ml @ 125 mls/hr IVPB Q8H [facility] Rx#:[id number] Intake, IV Titration 100 Amount Calcium Gluconate 2 gm In 100 Sodium Chloride 0.9% 100 ml @ 100 mls/hr IVPB ONCE [facility] Rx#:[id number] Oral 760 790 Output: Chest Tube Drainage 450 239 130 Chest Tube Bilateral 180 Chest Tube Mediastinal 210 Left Pleural 32 67 30 Right PLeural 28 172 100 Urine 879 1027 365 Other: Voiding Method Indwelling Catheter Indwelling Catheter Indwelling Catheter ABP, PAP, CO, CI - Last Documented Arterial Blood Pressure 91/56 Pulmonary Artery Pressure 42/25 Cardiac Output 7.9 Cardiac Index 4 - Labs CBC & Chem 7: 06/23/20 04:35 06/23/20 04:35 Labs: Abnormal Lab Results - Last 24 Hours (Table) 06/22/20 06/23/20 06/23/20 Range/Units 13:29 04:35 04:35 RBC 2.50 L (3.80-5.40) m/uL Hgb 7.7 L (11.4-16.0) gm/dL Hct 23.7 L (34.0-46.0) % Plt Count 118 L (150-450) k/uL Sodium 133 L (137-145) mmol/L Glucose 122 H (74-99) mg/dL POC Glucose (mg/dL) 148 H (75-99) mg/dL Calcium 8.1 L (8.4-10.2) mg/dL AST 66 H (14-36) U/L ALT 80 H (4-34) U/L Total Protein 5.0 L (6.3-8.2) g/dL Albumin 2.8 L (3.5-5.0) g/dL
[2020-06-23] MEDS: MAGNESIUM HYDROXIDE 2,400 MG/10 ML CUP PO PRN (13:02)
--- NOTE | 2020-06-23 14:47 | P.PN ---
Subjective Progress Note Date: 06/23/20 This is a 45-year-old female status post mitral replacement. Patient seemed to be doing well. Sitting in the chair without any discomfort. No respiratory distress. No arrhythmias. Overall patient is doing well, receiving incentive spirometry. Patient is being transferred to stepdown unit. Increase activity as tolerated. Possible discharge within next 48 hours Objective - Vital Signs Vital signs: Vital Signs Temp 98.4 F 06/23/20 12:30 Pulse 78 06/23/20 14:30 Resp 24 06/23/20 14:30 BP 88/51 06/23/20 14:30 Pulse Ox 92 L 06/23/20 14:30 Intake & Output 06/22/20 06/23/20 06/23/20 18:59 06:59 18:59 Intake Total 1275 913 490 Output Total 1329 1266 780 Balance -54 -353 -290 Weight 94.8 kg Intake: IV 415 123 490 0.9 ns CO/CI 20 Lactated Ringers 1,000 ml 350 120 40 @ 20 mls/hr IV .Q24H [facility] Rx#:[id number] Magnesium Sulfate-D5w Pmx 200 1 gm In Dextrose/Water 1 100ml.bag @ 100 mls/hr IVPB Q1H [facility] Rx#: [id number] Pressure bags 45 3 Vancomycin 1,500 mg In 250 Sodium Chloride 0.9% 250 ml @ 125 mls/hr IVPB Q8H [facility] Rx#:[id number] Intake, IV Titration 100 Amount Calcium Gluconate 2 gm In 100 Sodium Chloride 0.9% 100 ml @ 100 mls/hr IVPB ONCE [facility] Rx#:[id number] Oral 760 790 Output: Chest Tube Drainage 450 239 130 Chest Tube Bilateral 180 Chest Tube Mediastinal 210 Left Pleural 32 67 30 Right PLeural 28 172 100 Urine 879 1027 650 Other: Voiding Method Indwelling Catheter Indwelling Catheter Indwelling Catheter ABP, PAP, CO, CI - Last Documented Arterial Blood Pressure 91/56 Pulmonary Artery Pressure 42/25 Cardiac Output 7.9 Cardiac Index 4 - Exam GENERAL EXAM: Patient is alert and oriented and doesn't appear to be in any acute distress HEENT: Normocephalic. Normal reaction of pupils, equal size, normal range of extraocular motion. No erythema or exudates in the throat. NECK: No masses, no nuchal rigidity. CHEST: No chest wall deformity. LUNGS: Diminished air exchange HEART: S1 and S2 normal with no audible mumurs or gallops. Regular rhythm, femorals equal on both sides.. ABDOMEN: No hepatosplenomegaly, normal bowel sounds, no guarding or rigidity. SKIN: No rashes CENTRAL NERVOUS SYSTEM: No focal deficits. EXTREMITIES: No cyanosis, clubbing or edema. - Labs CBC & Chem 7: 06/23/20 04:35 06/23/20 04:35 Labs: Abnormal Lab Results - Last 24 Hours (Table) 06/23/20 06/23/20 06/23/20 Range/Units 04:35 04:35 12:00 RBC 2.50 L (3.80-5.40) m/uL Hgb 7.7 L (11.4-16.0) gm/dL Hct 23.7 L (34.0-46.0) % Plt Count 118 L (150-450) k/uL Sodium 133 L (137-145) mmol/L Glucose 122 H (74-99) mg/dL POC Glucose (mg/dL) 122 H (75-99) mg/dL Calcium 8.1 L (8.4-10.2) mg/dL AST 66 H (14-36) U/L ALT 80 H (4-34) U/L Total Protein 5.0 L (6.3-8.2) g/dL Albumin 2.8 L (3.5-5.0) g/dL Assessment and Plan (1) Status post mitral valve replacement Current Visit: Yes Status: Acute Code(s): Z95.2 - PRESENCE OF PROSTHETIC HEART VALVE SNOMED Code(s): 9329325104679 (2) History of mitral valve prolapse Current Visit: Yes Status: Acute Code(s): Z86.79 - PERSONAL HISTORY OF OTHER DISEASES OF THE CIRCULATORY SYSTEM SNOMED Code(s): 324388904 (3) History of congestive heart failure Current Visit: Yes Status: Acute Code(s): Z86.79 - PERSONAL HISTORY OF OTHER DISEASES OF THE CIRCULATORY SYSTEM SNOMED Code(s): 119503299 Plan: Status post mitral valve repair. Clinically stable. Increase activity and transfer to stepdown unit
[2020-06-23] MEDS: METOPROLOL TARTRATE 12.5 MG TAB PO SCH ×2 (15:54→20:28)
[2020-06-23 17:01] LABS: Glucose,Whole Blood 153 mg/dL (75-99)
[2020-06-23] MEDS ORDERED: WARFARIN 7.5 MG TAB PO ONE (18:00)
[2020-06-23 20:18] LABS: Glucose,Whole Blood 106 mg/dL (75-99)
[2020-06-23] MEDS: ESCITALOPRAM 10 MG TAB PO SCH (20:28)
[2020-06-23] MEDS: SENNOSIDES-DOCUSATE SODIUM 1 EACH TAB PO SCH (20:28)
[2020-06-23] MEDS: traZODone HCL 50 MG TAB PO SCH (20:28)
[2020-06-24] MEDS: HEPARIN SODIUM,PORCINE 5,000 UNIT/ML 1 ML VIAL SQ SCH ×3 (00:35→16:45)
[2020-06-24] MEDS: KETOROLAC 15 MG/ML 1 ML VIAL IVP SCH ×3 (03:45→16:45)
[2020-06-24] MEDS: INSULIN ASPART (NovoLOG) 100 UNIT/ML VIAL SQ SCH ×3 (06:06→17:31)
[2020-06-24 06:10] LABS: Glucose,Whole Blood 129 mg/dL (75-99)
[2020-06-24] MEDS: FERROUS SULFATE 325 MG TAB PO SCH ×2 (06:13→17:42)
[2020-06-24] MEDS: HYDROcodone/APAP 7.5-325MG 1 EACH TAB PO PRN (06:13)
[2020-06-24] MEDS: PANTOPRAZOLE 40 MG TABLET PO SCH (06:13)
[2020-06-24] MEDS: ASCORBIC ACID 500 MG TAB PO SCH ×2 (06:13→17:42)
[2020-06-24 07:34] LABS: HCT 23.4 % (34.0-46.0); HGB 7.4 gm/dL (11.4-16.0); MCH 30.1 pg (25.0-35.0); MCHC 31.7 g/dL (31.0-37.0); Mean Platelet Volume 7.9; Platelet Count 151 k/uL (150-450); RBC 2.47 m/uL (3.80-5.40); RDW 13.6 % (11.5-15.5); WBC 10.2 k/uL (3.8-10.6)
[2020-06-24 07:45] LABS: Prothrombin Time 10.1 sec (9.0-12.0)
[2020-06-24 07:52] LABS: African American GFR (CKD) >90 (>60 ml/min/1.73 sqM); Anion Gap 5 mmol/L; Blood Urea Nitrogen 16 mg/dL (7-17); Calcium 7.8 mg/dL (8.4-10.2); Carbon Dioxide 26 mmol/L (22-30); Chloride 105 mmol/L (98-107); Glucose 99 mg/dL (74-99); Magnesium 2.2 mg/dL (1.6-2.3); Non-African American GFR(CKD) >90 (>60 ml/min/1.73 sqM); Potassium 4.2 mmol/L (3.5-5.1); Sodium 136 mmol/L (137-145)
--- NOTE | 2020-06-24 07:52 | XR ---
EXAMINATION TYPE: XR chest 2V DATE OF EXAM: 06/24/2020 COMPARISON: 06/23/2020 INDICATION: Post cardiac surgery TECHNIQUE: Frontal and lateral views of the chest are obtained. FINDINGS: The heart size is normal. Cardiac valve surgery is evident. Sternotomy wires are present. The pulmonary vasculature is normal. There is mild left lower lobe infiltrate most likely on the basis of atelectasis. Pneumonia could be considered. Chest tubes been removed. No pneumothorax is evident. No radiopaque foreign body overlies the thoracic inlet region.. IMPRESSION: 1. Left lower lobe infiltrate likely atelectasis. 2. No pneumothorax post chest tube removal
[2020-06-24] MEDS: IPRATROPIUM-ALBUTEROL 3 ML NEB INHALATION SCH ×4 (08:03→19:56)
--- NOTE | 2020-06-24 08:56 | P.PN ---
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 Previous medical history of hypertension, chronic grade 2 diastolic heart failur e, chronic low back pain/fibromyalgia, Crohn's disease, anxiety/depression, ADHD, rheumatoid arthritis, PTSD, obesity POD #3 mitral valve replacement with a 25/33 mm On-X mechanical mitral valve, ligation of the left atrial appendage, epi-aortic ultrasonography Postoperative acute blood loss anemia, expected outcome of surgery given hemodilution and cardiopulmonary bypass pump Postoperative transaminitis, unexpected, likely due to volume changes Postoperative leukocytosis, likely reactive The patient is currently sitting up in a recliner in no acute distress. Was transferred to the cardiac stepdown unit yesterday evening. States pain is controlled. Denies shortness of breath. Remains in normal sinus rhythm and hemodynamically stable. All lines and tubes were discontinued yesterday. Patient was started on Coumadin. Patient ambulated in the hallway multiple times yesterday without difficulty. No new concerns. Objective - Vital Signs Vital signs: Vital Signs Temp 98.8 F 06/24/20 03:55 Pulse 77 06/24/20 08:14 Resp 17 06/24/20 03:55 BP 100/55 06/24/20 03:55 Pulse Ox 97 06/24/20 03:55 Intake & Output 06/23/20 06/24/20 06/24/20 18:59 06:59 18:59 Intake Total 1070 Output Total 880 350 Balance 190 -350 Weight 92.8 kg 92.5 kg Intake: IV 490 Lactated Ringers 1,000 ml 40 @ 20 mls/hr IV .Q24H [facility] Rx#:[id number] Magnesium Sulfate-D5w Pmx 200 1 gm In Dextrose/Water 1 100ml.bag @ 100 mls/hr IVPB Q1H [facility] Rx#: [id number] Vancomycin 1,500 mg In 250 Sodium Chloride 0.9% 250 ml @ 125 mls/hr IVPB Q8H [facility] Rx#:[id number] Oral 580 Output: Chest Tube Drainage 130 Left Pleural 30 Right PLeural 100 Urine 750 350 Other: Voiding Method Indwelling Catheter ABP, PAP, CO, CI - Last Documented Arterial Blood Pressure 91/56 Pulmonary Artery Pressure 42/25 Cardiac Output 7.9 Cardiac Index 4 - Constitutional General appearance: Present: cooperative, no acute distress, obese - Respiratory Details: Lungs sounds diminished bilaterally. Respirations even, nonlabored. Currently on room air with oxygen saturation 97%. Able to achieve 1000 mL on her incentive spirometry. Strong cough. - Cardiovascular Details: S1, S2 present, positive valvular click. Regular rate and rhythm, sinus rhythm on telemetry. Sternum stable. Palpable peripheral pulses bilaterally. Trace bilateral lower extremity edema present. Heart hugger in place with patient demonstrating appropriate use. Antiembolism stockings, SCDs present. - Gastrointestinal Gastrointestinal Comment(s): Abdomen soft, nontender, nondistended. Active bowel sounds present 4 quadrants. Tolerating diet. Positive flatus, negative bowel movement. - Genitourinary Genitourinary Comment(s): Carvajal discontinued yesterday. Patient has voided - Integumentary Integumentary Comment(s): Skin is warm and dry with evidence of good perfusion. Anterior chest incision well approximated and covered with dry intact dressing. - Neurologic Neurologic: Present: CNII-XII intact - Musculoskeletal Musculoskeletal: Present: gait normal, strength equal bilaterally - Psychiatric Psychiatric: Present: A&O x's 3, appropriate affect, intact judgment & insight - Allied health notes Allied health notes reviewed: nursing - Labs CBC & Chem 7: 06/24/20 06:57 06/24/20 06:57 Labs: Abnormal Lab Results - Last 24 Hours (Table) 06/23/20 06/23/20 06/23/20 Range/Units 12:00 16:51 20:16 RBC (3.80-5.40) m/uL Hgb (11.4-16.0) gm/dL Hct (34.0-46.0) % Sodium (137-145) mmol/L POC Glucose (mg/dL) 122 H 153 H 106 H (75-99) mg/dL Calcium (8.4-10.2) mg/dL 06/24/20 06/24/20 06/24/20 Range/Units 06:06 06:57 06:57 RBC 2.47 L (3.80-5.40) m/uL Hgb 7.4 L (11.4-16.0) gm/dL Hct 23.4 L (34.0-46.0) % Sodium 136 L (137-145) mmol/L POC Glucose (mg/dL) 129 H (75-99) mg/dL Calcium 7.8 L (8.4-10.2) mg/dL - Imaging and Cardiology Chest x-ray: report reviewed, image reviewed Assessment and Plan Assessment: 1. 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 Hypertension 3. Chronic grade 2 diastolic heart failure 4. Chronic low back pain/fibromyalgia 5. Crohn's disease 6. Anxiety/depression 7. ADHD 8. Rheumatoid arthritis 9. PTSD 10. Obesity 11. Postoperative acute blood loss anemia 12. Postoperative transaminitis 13. Postoperative leukocytosis Plan: 1. Continue aspirin, statin, beta imani therapy. Will increase beta imani therapy as tolerated 2. Encourage incentive spirometry 10 times every hour while awake. Bronchodilators per pulmonology 3. Increase activity, ambulate as tolerated. PT/OT/cardiac rehab following. First postop shower today 4. Will initiate anticoagulation with Coumadin, 5 mg today. Goal INR 2-3 for 3 months, then 1.5-2 thereafter. Will draw daily PT/INR 5. Will monitor daily labs and x-rays. Electrolyte replacement per protocol. No transfusion at this time, iron/vitamin C added yesterday. Continue IV Lasix 6. GI/DVT prophylaxis 7. Pain control with current medication regimen. 8. Continue Flexeril to 10 mg 3 times daily as needed. 9. Insulin management per primary care service. Patient is not diabetic, preoperative hemoglobin A1c 4.7% 10. Discharge planning in progress. Anticipate discharge to home with home care in 48-72 hours dependent on when patient's Coumadin level becomes therapeutic 11. More recommendations to follow Time with Patient: Greater than 30
[2020-06-24] MEDS ORDERED: VANCOMYCIN TROUGH DUE 1 EACH MISC MISCELLANE ONE (09:00)
[2020-06-24] MEDS ORDERED: CALCIUM GLUCONATE 2 GM in SODIUM CHLORIDE 0.9% 100 ML IVPB ONE (09:00)
[2020-06-24] MEDS: ASPIRIN 325 MG TAB PO SCH (09:07)
[2020-06-24] MEDS: ATORVASTATIN 40 MG TAB PO SCH (09:08)
[2020-06-24] MEDS: LIDOCAINE 5% PATCH TOPICAL SCH (09:08)
[2020-06-24] MEDS: clonazePAM 0.5 MG TAB PO SCH ×2 (09:08→20:33)
[2020-06-24] MEDS: FUROSEMIDE 10 MG/ML 2 ML VIAL IV SCH ×2 (09:08→20:33)
[2020-06-24] MEDS: MAGNESIUM HYDROXIDE 2,400 MG/10 ML CUP PO PRN (09:09)
--- NOTE | 2020-06-24 11:11 | P.PN ---
Subjective Progress Note Date: 06/24/20 Principal diagnosis: Mitral valve stenosis, mitral valve replacement postoperative day #3 The patient is seen today 06/24/2020 in follow-up on the selective care unit. She is currently sitting up in a chair at the bedside. This is postoperative day #3 following a mitral valve replacement. She is doing quite well. She is maintaining good O2 saturations in the 90s on room air. She's working well with the incentive spirometer. Chest tubes have been removed. Chest x-ray reveals left lower lobe infiltrate/atelectasis. No pneumothorax. White count 10.2. Hemoglobin 7.4. Platelet count 151. Sodium 136. Potassium 4.2. Creatinine 0.69. Remains on bronchodilators and IV diuretics. Objective - Vital Signs Vital signs: Vital Signs Temp 98.5 F 06/24/20 08:50 Pulse 92 06/24/20 09:05 Resp 18 06/24/20 09:05 BP 108/64 06/24/20 09:05 Pulse Ox 100 06/24/20 09:05 Intake & Output 06/23/20 06/24/20 06/24/20 18:59 06:59 18:59 Intake Total 1070 Output Total 880 350 Balance 190 -350 Weight 92.8 kg 92.5 kg Intake: IV 490 Lactated Ringers 1,000 ml 40 @ 20 mls/hr IV .Q24H [facility] Rx#:[id number] Magnesium Sulfate-D5w Pmx 200 1 gm In Dextrose/Water 1 100ml.bag @ 100 mls/hr IVPB Q1H [facility] Rx#: [id number] Vancomycin 1,500 mg In 250 Sodium Chloride 0.9% 250 ml @ 125 mls/hr IVPB Q8H [facility] Rx#:[id number] Oral 580 Output: Chest Tube Drainage 130 Left Pleural 30 Right PLeural 100 Urine 750 350 Other: Voiding Method Indwelling Catheter Indwelling Catheter ABP, PAP, CO, CI - Last Documented Arterial Blood Pressure 91/56 Pulmonary Artery Pressure 42/25 Cardiac Output 7.9 Cardiac Index 4 - Exam GENERAL EXAM: Alert, active, very pleasant 45-year-old female patient, on room air, comfortable in no apparent distress. HEAD: Normocephalic. EYES: Normal reaction of pupils, equal size. NOSE: Clear with pink turbinates. THROAT: No erythema or exudates. NECK: No masses, no JVD. CHEST: Sternal dressing dry and intact, her are in place LUNGS: Equal air entry with no crackles, wheeze, rhonchi or dullness. CVS: S1 and S2 normal with no audible murmur, regular rhythm. ABDOMEN: No hepatosplenomegaly, normal bowel sounds, no guarding or rigidity. SPINE: No scoliosis or deformity SKIN: No rashes CENTRAL NERVOUS SYSTEM: No focal deficits, tone is normal in all 4 extremities. EXTREMITIES: There is no peripheral edema. No clubbing, no cyanosis. Peripheral pulses are intact. - Labs CBC & Chem 7: 06/24/20 06:57 06/24/20 06:57 Labs: Abnormal Lab Results - Last 24 Hours (Table) 06/23/20 06/23/20 06/23/20 Range/Units 12:00 16:51 20:16 RBC (3.80-5.40) m/uL Hgb (11.4-16.0) gm/dL Hct (34.0-46.0) % Sodium (137-145) mmol/L POC Glucose (mg/dL) 122 H 153 H 106 H (75-99) mg/dL Calcium (8.4-10.2) mg/dL 06/24/20 06/24/20 06/24/20 Range/Units 06:06 06:57 06:57 RBC 2.47 L (3.80-5.40) m/uL Hgb 7.4 L (11.4-16.0) gm/dL Hct 23.4 L (34.0-46.0) % Sodium 136 L (137-145) mmol/L POC Glucose (mg/dL) 129 H (75-99) mg/dL Calcium 7.8 L (8.4-10.2) mg/dL Assessment and Plan Assessment: 1 severe mitral regurgitation post mitral valve replacement. The patient had a placement of a mechanical mitral valve and the patient is postop day #3. 2 post thoracotomy and the patient was extubated without any major difficulties and currently she is on room air oxygen, , and the patient has mediastinal chest tubes removed and the bilateral pleural chest tubes have been removed with no evidence of pneumothorax on the chest x-ray. The chest x-ray from today shows s ome atelectatic changes in lung bilaterally. Nevertheless, the patient is using incentive spirometer. 3 grade 3 diastolic heart failure 4 hypertension 5 chronic disease 6 chronic back pain of her neurologic 7 chronic anxiety and depression 8 PTSD 9 rheumatoid arthritis 10 ADHD Plan The patient was seen and evaluated by Dr. Zaragoza Chest x-ray and labs reviewed Increase her activity as tolerated Increase the use of the incentive spirometer and cough and deep breathing exercises Possible discharge in the a.m. Continue to follow I, the cosigning physician, performed a history & physical examination of the patient. Lungs sounds are clear. Maintaining good O2 saturations in the 90s on room air. I discussed the assessment and plan of care with my nurse practition er, Nadia Bishop. I attest to the above note as dictated by her.
[2020-06-24] MEDS ORDERED: LACTULOSE 20 GM/30 ML CUP PO PRN (11:20)
[2020-06-24 12:18] LABS: Glucose,Whole Blood 89 mg/dL (75-99)
[2020-06-24] MEDS: METOPROLOL TARTRATE 12.5 MG TAB PO SCH ×2 (12:46→20:33)
[2020-06-24] MEDS: HYDROcodone/APAP 5-325MG 1 EACH TAB PO PRN ×2 (12:47→20:34)
[2020-06-24] MEDS: CYCLOBENZAPRINE 10 MG TAB PO PRN ×2 (12:47→17:42)
--- NOTE | 2020-06-24 13:07 | P.PN ---
Subjective Patient is seen and examined sitting up in the chair in no acute distress. She is status post mitral valve replacement. She denies symptoms of chest pain, shortness of breath or palpitations. She states she feels dizzy and lightheaded when she ambulates. Blood pressure has been running on the low side. This morning was 84/53 heart rate of 80 afebrile maintaining oxygen saturation on room air. Laboratory data reviewed, WBC 10.2, hemoglobin 7.4, platelets 151, sodium 136, potassium 4.2, creatinine 0.69 and magnesium 2.2. Currently mainta ined on Lasix 20 mg IV twice a day and metoprolol 12.5 mg twice a day. GENERAL: Well-appearing, well-nourished and in no acute distress. NECK: Supple without JVD or thyromegaly. LUNGS: Breath sounds clear to auscultation bilaterally. Respiration equal and unlabored. No wheezes, rales or rhonchi. HEART: Regular rate and rhythm with mechanical click, no rubs or gallops. S1 and S2 heard. Heart heart rate in place. EXTREMITIES: Normal range of motion, trace bilateral lower extremity edema. No clubbing or cyanosis. Peripheral pulses intact. ASSESSMENT Severe mitral regurgitation status post mechanical mitral valve replacement maintained on coumadin Hypertension with episodes of hypotension History of diastolic heart failure PLAN Consider decreasing diuretic secondary to hypotension. Continue beta blockers. Nurse Practitioner note has been reviewed, I agree with a documented findings and plan of care. Patient was seen and examined. Objective - Vital Signs Vital signs: Vital Signs Temp 98.5 F 06/24/20 08:50 Pulse 82 06/24/20 12:41 Resp 18 06/24/20 11:00 BP 97/52 06/24/20 12:41 Pulse Ox 97 06/24/20 11:00 Intake & Output 06/23/20 06/24/20 06/24/20 18:59 06:59 18:59 Intake Total 1070 Output Total 880 350 200 Balance 190 -350 -200 Weight 92.8 kg 92.5 kg Intake: IV 490 Lactated Ringers 1,000 ml 40 @ 20 mls/hr IV .Q24H [facility] Rx#:[id number] Magnesium Sulfate-D5w Pmx 200 1 gm In Dextrose/Water 1 100ml.bag @ 100 mls/hr IVPB Q1H [facility] Rx#: [id number] Vancomycin 1,500 mg In 250 Sodium Chloride 0.9% 250 ml @ 125 mls/hr IVPB Q8H [facility] Rx#:[id number] Oral 580 Output: Chest Tube Drainage 130 Left Pleural 30 Right PLeural 100 Urine 750 350 200 Other: Voiding Method Indwelling Catheter Indwelling Catheter # Voids 1 ABP, PAP, CO, CI - Last Documented Arterial Blood Pressure 91/56 Pulmonary Artery Pressure 42/25 Cardiac Output 7.9 Cardiac Index 4 - Labs CBC & Chem 7: 06/24/20 06:57 06/24/20 06:57 Labs: Abnormal Lab Results - Last 24 Hours (Table) 06/23/20 06/23/20 06/24/20 Range/Units 16:51 20:16 06:06 RBC (3.80-5.40) m/uL Hgb (11.4-16.0) gm/dL Hct (34.0-46.0) % Sodium (137-145) mmol/L POC Glucose (mg/dL) 153 H 106 H 129 H (75-99) mg/dL Calcium (8.4-10.2) mg/dL 06/24/20 06/24/20 Range/Units 06:57 06:57 RBC 2.47 L (3.80-5.40) m/uL Hgb 7.4 L (11.4-16.0) gm/dL Hct 23.4 L (34.0-46.0) % Sodium 136 L (137-145) mmol/L POC Glucose (mg/dL) (75-99) mg/dL Calcium 7.8 L (8.4-10.2) mg/dL
--- NOTE | 2020-06-24 14:14 | P.PN ---
Subjective Progress Note Date: 06/24/20 (delayed charting seen at 1130) Principal diagnosis: CHF Patient is a 45-year-old female with a history of hypertension, fibromyalgia, rheumatoid arthritis, IBS, and severe mitral regurgitation who presented to the hospital for mitral valve replacement. She was recently hospitalized here from 06/09/2020 - 06/14/2020 secondary to acute congestive heart failure. During that evaluation she was found to have severe mitral regurgitation, and normal coronary arteries on cath. Subsequently they've planned for mitral valve replacement. On 06/21/2020 she underwent mitral valve replacement, ligation of the last atrial appendage, and epi-aortic US. She was subsequently admitted to the ICU. She was intubated, sedated, with mediastinal and chest tubes in place. She was successfully extubated the evening of 06/21 all tubes have been removed. Patient seen and examined at bedside. Slept better last night. Feeling good today. No shortness of breath, chest pain remains manageable. Was up and walking. Still no bowel movement. Does not feel a bowel movement coming. General: non toxic, no distress, appears at stated age Derm: warm, dry Head: atraumatic, normocephalic, symmetric Eyes: EOMI, no lid lag, anicteric sclera Mouth: no lip lesion, mucus membranes moist Cardiovascular: S1S2 reg, no murmur, positive posterior tibial pulse bilateral Lungs: Decreased bs bilateral, no rhonchi, no rales , no accessory muscle use Abdominal: soft, nontender to palpation, no guarding, no appreciable organomegaly Ext: no gross muscle atrophy, no edema, no contractures Neuro: CN II-XI grossly intact, no focal neuro deficits Psych: Alert, oriented, appropriate affect Severe mitral regurg s/p valve replacement- management by CVT, on coumadin goal INR 2.5-3.5 Acute blood loss anemia, post op anticipated - stable - follow CBC - oral iron X 30 days Constipation - add lactulose X 1 to bowel regiment as she refuses suppository Chronic Diastolic CHF, EF 55%, pulm HTN - Metoprolol Hyponatremia, stable - likely related to volume status - lasix stopped 06/24 - repeat in AM HTN, currently controlled - lopressor - follow BP Fibromyalgia - flexaril, norco IBS/ Crohn's disease - not chronically on treatment - As need immodium if needed Anxiety/ depression/ PTSD - Klonopin - Lexapro Obesity, BMI 31.8 - outpatient structured weight loss Leukocytosis, resolved Transaminitis, improved Thrombocytopenia resolved Objective - Vital Signs Vital signs: Vital Signs Temp 98.5 F 06/24/20 08:50 Pulse 82 06/24/20 12:41 Resp 18 06/24/20 11:00 BP 97/52 06/24/20 12:41 Pulse Ox 97 06/24/20 11:00 Intake & Output 06/23/20 06/24/20 06/24/20 18:59 06:59 18:59 Intake Total 1070 Output Total 880 350 200 Balance 190 -350 -200 Weight 92.8 kg 92.5 kg Intake: IV 490 Lactated Ringers 1,000 ml 40 @ 20 mls/hr IV .Q24H [facility] Rx#:[id number] Magnesium Sulfate-D5w Pmx 200 1 gm In Dextrose/Water 1 100ml.bag @ 100 mls/hr IVPB Q1H [facility] Rx#: [id number] Vancomycin 1,500 mg In 250 Sodium Chloride 0.9% 250 ml @ 125 mls/hr IVPB Q8H [facility] Rx#:[id number] Oral 580 Output: Chest Tube Drainage 130 Left Pleural 30 Right PLeural 100 Urine 750 350 200 Other: Voiding Method Indwelling Catheter Indwelling Catheter # Voids 1 ABP, PAP, CO, CI - Last Documented Arterial Blood Pressure 91/56 Pulmonary Artery Pressure 42/25 Cardiac Output 7.9 Cardiac Index 4 - Labs CBC & Chem 7: 06/24/20 06:57 06/24/20 06:57 Labs: Abnormal Lab Results - Last 24 Hours (Table) 06/23/20 06/23/20 06/24/20 Range/Units 16:51 20:16 06:06 RBC (3.80-5.40) m/uL Hgb (11.4-16.0) gm/dL Hct (34.0-46.0) % Sodium (137-145) mmol/L POC Glucose (mg/dL) 153 H 106 H 129 H (75-99) mg/dL Calcium (8.4-10.2) mg/dL 06/24/20 06/24/20 Range/Units 06:57 06:57 RBC 2.47 L (3.80-5.40) m/uL Hgb 7.4 L (11.4-16.0) gm/dL Hct 23.4 L (34.0-46.0) % Sodium 136 L (137-145) mmol/L POC Glucose (mg/dL) (75-99) mg/dL Calcium 7.8 L (8.4-10.2) mg/dL
[2020-06-24 17:06] LABS: Glucose,Whole Blood 102 mg/dL (75-99)
[2020-06-24] MEDS ORDERED: WARFARIN 5 MG TAB PO ONE (18:00)
[2020-06-24] MEDS: SENNOSIDES-DOCUSATE SODIUM 1 EACH TAB PO SCH (20:24)
[2020-06-24] MEDS: ESCITALOPRAM 10 MG TAB PO SCH (20:33)
[2020-06-24] MEDS: traZODone HCL 50 MG TAB PO SCH (20:33)
[2020-06-24 21:10] LABS: Glucose,Whole Blood 107 mg/dL (75-99)
[2020-06-25] MEDS: INSULIN ASPART (NovoLOG) 100 UNIT/ML VIAL SQ SCH ×5 (00:22→21:01)
[2020-06-25] MEDS: HEPARIN SODIUM,PORCINE 5,000 UNIT/ML 1 ML VIAL SQ SCH ×3 (00:24→16:59)
[2020-06-25] MEDS: HYDROcodone/APAP 5-325MG 1 EACH TAB PO PRN (02:20)
[2020-06-25] MEDS: PANTOPRAZOLE 40 MG TABLET PO SCH (06:10)
[2020-06-25] MEDS: ASCORBIC ACID 500 MG TAB PO SCH ×2 (06:10→16:59)
[2020-06-25] MEDS: CYCLOBENZAPRINE 10 MG TAB PO PRN ×3 (06:10→22:36)
[2020-06-25] MEDS: FERROUS SULFATE 325 MG TAB PO SCH ×2 (06:11→16:59)
[2020-06-25 06:15] LABS: Glucose,Whole Blood 106 mg/dL (75-99)
[2020-06-25] MEDS ORDERED: SENNOSIDES-DOCUSATE SODIUM 1 EACH TAB PO PRN (07:59)
[2020-06-25] MEDS ORDERED: KETOROLAC 15 MG/ML 1 ML VIAL IVP SCH (08:00)
--- NOTE | 2020-06-25 08:02 | P.PN ---
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 Previous medical history of hypertension, chronic grade 2 diastolic heart failur e, chronic low back pain/fibromyalgia, Crohn's disease, anxiety/depression, ADHD, rheumatoid arthritis, PTSD, obesity POD #4 mitral valve replacement with a 25/33 mm On-X mechanical mitral valve, ligation of the left atrial appendage, epi-aortic ultrasonography Postoperative acute blood loss anemia, expected outcome of surgery given hemodilution and cardiopulmonary bypass pump Postoperative transaminitis, unexpected, likely due to volume changes Postoperative leukocytosis, likely reactive The patient is currently sitting up in a recliner in no acute distress on the cardiac stepdown unit. States pain is controlled. Denies shortness of breath. Remains in normal sinus rhythm and hemodynamically stable. Patient was started on Coumadin. Patient ambulated in the hallway multiple times yesterday without difficulty, received first postop shower. No new concerns, anxious to go home. Objective - Vital Signs Vital signs: Vital Signs Temp 98.3 F 06/25/20 03:29 Pulse 77 06/25/20 03:29 Resp 16 06/25/20 03:29 BP 93/55 06/25/20 03:29 Pulse Ox 96 06/25/20 03:29 Intake & Output 06/24/20 06/25/20 06/25/20 18:59 06:59 18:59 Intake Total 600 Output Total 300 Balance -300 600 Weight 92.5 kg Intake: Oral 600 Output: Urine 300 Other: Voiding Method Indwelling Catheter # Voids 1 1 ABP, PAP, CO, CI - Last Documented Arterial Blood Pressure 91/56 Pulmonary Artery Pressure 42/25 Cardiac Output 7.9 Cardiac Index 4 - Constitutional General appearance: Present: cooperative, no acute distress, obese - Respiratory Details: Lungs sounds diminished bilaterally. Respirations even, nonlabored. Currently on room air with oxygen saturation 96%. Able to achieve 8760-5390 mL on her incentive spirometry. Strong dry cough. - Cardiovascular Details: S1, S2 present, positive valvular click. Regular rate and rhythm, sinus rhythm on telemetry. Sternum stable. Palpable peripheral pulses bilaterally. Trace bilateral lower extremity edema present. Heart hugger in place with patient demonstrating appropriate use. Antiembolism stockings, SCDs present. - Gastrointestinal Gastrointestinal Comment(s): Abdomen soft, nontender, nondistended. Active bowel sounds present 4 quadrants. Tolerating diet. Positive bowel movement 3 yesterday per patient. - Genitourinary Genitourinary Comment(s): Continues to void - Integumentary Integumentary Comment(s): Skin is warm and dry with evidence of good perfusion. Anterior chest incision well approximated and covered with dry intact dressing. - Neurologic Neurologic: Present: CNII-XII intact - Musculoskeletal Musculoskeletal: Present: gait normal, strength equal bilaterally - Psychiatric Psychiatric: Present: A&O x's 3, appropriate affect, intact judgment & insight - Allied health notes Allied health notes reviewed: nursing - Labs CBC & Chem 7: 06/24/20 06:57 06/24/20 06:57 Labs: Abnormal Lab Results - Last 24 Hours (Table) 06/24/20 06/24/20 06/25/20 Range/Units 16:39 20:55 06:14 POC Glucose (mg/dL) 102 H 107 H 106 H (75-99) mg/dL - Imaging and Cardiology Chest x-ray: image reviewed Assessment and Plan Assessment: 1. 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 Hypertension 3. Chronic grade 2 diastolic heart failure 4. Chronic low back pain/fibromyalgia 5. Crohn's disease 6. Anxiety/depression 7. ADHD 8. Rheumatoid arthritis 9. PTSD 10. Obesity 11. Postoperative acute blood loss anemia 12. Postoperative transaminitis, resolving 13. Postoperative leukocytosis, resolved Plan: 1. Continue aspirin, statin, beta imani therapy. Will increase beta imani therapy as tolerated 2. Encourage incentive spirometry 10 times every hour while awake. Br onchodilators per pulmonology 3. Increase activity, ambulate as tolerated. PT/OT/cardiac rehab following. Continue to shower daily 4. Continue anticoagulation with Coumadin, today's dose dependent on INR which is pending. Goal INR 2-3 for 3 months, then 1.5-2 thereafter. Will draw daily PT/INR 5. Will monitor daily labs and x-rays. Electrolyte replacement per protocol. No transfusion at this time. IV Lasix decreased to daily 6. GI/DVT prophylaxis 7. Pain control with current medication regimen. Narcotics discontinued 8. Continue Flexeril to 10 mg 3 times daily as needed. 9. Insulin management per primary care service. Patient is not diabetic, preoperative hemoglobin A1c 4.7% 10. Discharge planning in progress. Anticipate discharge to home with home care once patient's Coumadin level becomes therapeutic 11. More recommendations to follow Time with Patient: Greater than 30
[2020-06-25 08:33] LABS: HCT 22.1 % (34.0-46.0); HGB 7.2 gm/dL (11.4-16.0); MCHC 32.6 g/dL (31.0-37.0); MCV 94.9 fL (80.0-100.0); Mean Platelet Volume 7.7; Platelet Count 222 k/uL (150-450); RBC 2.33 m/uL (3.80-5.40); WBC 10.6 k/uL (3.8-10.6)
[2020-06-25] MEDS: clonazePAM 0.5 MG TAB PO SCH ×2 (08:40→21:01)
[2020-06-25] MEDS: METOPROLOL TARTRATE 12.5 MG TAB PO SCH ×2 (08:40→21:01)
[2020-06-25] MEDS: ATORVASTATIN 40 MG TAB PO SCH (08:40)
[2020-06-25] MEDS: ASPIRIN 325 MG TAB PO SCH (08:40)
[2020-06-25 08:45] LABS: INR 1.3 (<1.2); Prothrombin Time 12.6 sec (9.0-12.0)
[2020-06-25] MEDS ORDERED: KETOROLAC 15 MG/ML 1 ML VIAL IVP PRN (08:48)
[2020-06-25] MEDS: ACETAMINOPHEN TAB 500 MG TAB PO PRN ×3 (08:49→22:35)
[2020-06-25 08:57] LABS: ALT 39 U/L (4-34); AST 26 U/L (14-36); African American GFR (CKD) >90 (>60 ml/min/1.73 sqM); Albumin 2.8 g/dL (3.5-5.0); Alkaline Phosphatase 78 U/L (38-126); Anion Gap 7 mmol/L; Blood Urea Nitrogen 17 mg/dL (7-17); Calcium 7.9 mg/dL (8.4-10.2); Carbon Dioxide 25 mmol/L (22-30); Chloride 105 mmol/L (98-107); Glucose 120 mg/dL (74-99); Magnesium 1.8 mg/dL (1.6-2.3); Non-African American GFR(CKD) >90 (>60 ml/min/1.73 sqM); Sodium 137 mmol/L (137-145); Total Bilirubin 0.5 mg/dL (0.2-1.3); Total Protein 5.2 g/dL (6.3-8.2)
[2020-06-25] MEDS ORDERED: FUROSEMIDE 10 MG/ML 2 ML VIAL IV SCH (09:00)
[2020-06-25] MEDS: IPRATROPIUM-ALBUTEROL 3 ML NEB INHALATION SCH ×4 (09:05→19:54)
--- NOTE | 2020-06-25 09:09 | XR ---
EXAMINATION TYPE: XR chest 2V DATE OF EXAM: 06/25/2020 COMPARISON: 06/24/2020 INDICATION: Post cardiac surgery TECHNIQUE: Frontal and lateral views of the chest are obtained. FINDINGS: The heart size is normal. The pulmonary vasculature is normal. Mild subsegmental atelectasis is likely present at the left lung base. Sternotomy wires from cardiac valve surgery are evident.. IMPRESSION: 1. Mild infiltrate at the left base, likely subsegmental atelectasis. Continued follow-up is recommen ded.
[2020-06-25 12:19] LABS: Glucose,Whole Blood 135 mg/dL (75-99)
[2020-06-25] MEDS: FUROSEMIDE 20 MG TAB PO SCH (13:55)
[2020-06-25] MEDS: LIDOCAINE 5% PATCH TOPICAL SCH (13:55)
[2020-06-25] MEDS ORDERED: IBUPROFEN 400 MG TAB PO PRN (13:55)
[2020-06-25] MEDS: traMADol 50 MG TAB PO PRN ×2 (14:04→21:00)
[2020-06-25] MEDS: CALCIUM CARB-VIT D 500MG-200UN 1 EACH TAB PO SCH ×2 (14:05→19:01)
--- NOTE | 2020-06-25 14:05 | PN ---
PROGRESS NOTE Mrs. Knox is status post mitral valve replacement for significant mitral regurgitation performed by Dr. Powell. She has a mechanical mitral valve and she is currently being anticoagulated. INR is 1.3. Plan is to continue anticoagulation which is being addressed by the surgeons. At the time of my evaluation, she is resting comfortably without symptoms. She has no significant CAD. Blood pressure today is 108/70, pulse rate is 70, sinus. No JVD. S1- S2 heard normally. Prosthetic valve clicks are audible. Lungs revealed diminished air entry. Abdomen and lower extremity exam otherwise is unchanged. Plan is to continue incentive spirometry, pulmonary toilet and optimize anticoagulation prior to discharge. MMODL / IJN: [id number] /
[2020-06-25] MEDS: MAGNESIUM OXIDE 400 MG TAB PO SCH ×2 (14:06→21:01)
[2020-06-25 17:00] LABS: Glucose,Whole Blood 108 mg/dL (75-99)
[2020-06-25] MEDS ORDERED: WARFARIN 7.5 MG TAB PO ONE (18:00)
--- NOTE | 2020-06-25 18:05 | P.PN ---
Subjective Progress Note Date: 06/25/20 (Delayed charting seen at 1530) Principal diagnosis: CHF Patient is a 45-year-old female with a history of hypertension, fibromyalgia, rheumatoid arthritis, IBS, and severe mitral regurgitation who presented to the hospital for mitral valve replacement. She was recently hospitalized here from 06/09/2020 - 06/14/2020 secondary to acute congestive heart failure. During that evaluation she was found to have severe mitral regurgitation, and normal coronary arteries on cath. Subsequently they've planned for mitral valve replacement. On 06/21/2020 she underwent mitral valve replacement, ligation of the last atrial appendage, and epi-aortic US. She was subsequently admitted to the ICU. She was intubated, sedated, with mediastinal and chest tubes in place. She was successfully extubated the evening of 06/21 all tubes have been removed. Patient seen and examined at bedside. Feeling more depressed today as she cannot go home but she is waiting for her INR to gap. Denies any increased chest pain, difficulty breathing, or nausea and vomiting. General: non toxic, no distress, appears at stated age Derm: warm, dry Head: atraumatic, normocephalic, symmetric Eyes: EOMI, no lid lag, anicteric sclera Mouth: no lip lesion, mucus membranes moist Cardiovascular: S1S2 reg, no murmur, positive posterior tibial pulse bilateral Lungs: Decreased bs bilateral, no rhonchi, no rales , no accessory muscle use Abdominal: soft, nontender to palpation, no guarding, no appreciable organomegaly Ext: no gross muscle atrophy, no edema, no contractures Neuro: CN II-XI grossly intact, no focal neuro deficits Psych: Alert, oriented, appears depressed and anxious Severe mitral regurg s/p valve replacement- management by CVT, on coumadin goal INR 2.5-3.5 Acute blood loss anemia, post op anticipated - stable - follow CBC - oral iron X 30 days Chronic Diastolic CHF, EF 55%, pulm HTN - Metoprolol HTN, currently controlled - lopressor - follow BP Fibromyalgia - flexaril, norco IBS/ Crohn's disease - not chronically on treatment Anxiety/ depression/ PTSD - Klonopin - Lexapro Obesity, BMI 31.8 - outpatient structured weight loss Leukocytosis, resolved Transaminitis, improved Thrombocytopenia resolved Constipation, resolved Hyponatremia, resolved Outpatient follow-up with Ladi johnson for PCP and Osmin Solomon for psych on discharge tab. Objective - Vital Signs Vital signs: Vital Signs Temp 98.9 F 06/25/20 08:00 Pulse 80 06/25/20 12:37 Resp 17 06/25/20 12:00 BP 95/54 06/25/20 12:00 Pulse Ox 96 06/25/20 12:00 Intake & Output 06/24/20 06/25/20 06/25/20 18:59 06:59 18:59 Intake Total 600 240 Output Total 300 Balance -300 600 240 Weight 92.5 kg Intake: Oral 600 240 Output: Urine 300 Other: Voiding Method Indwelling Catheter # Voids 1 1 ABP, PAP, CO, CI - Last Documented Arterial Blood Pressure 91/56 Pulmonary Artery Pressure 42/25 Cardiac Output 7.9 Cardiac Index 4 - Labs CBC & Chem 7: 06/25/20 08:04 06/25/20 08:04 Labs: Abnormal Lab Results - Last 24 Hours (Table) 06/24/20 06/25/20 06/25/20 Range/Units 20:55 06:14 08:04 RBC (3.80-5.40) m/uL Hgb (11.4-16.0) gm/dL Hct (34.0-46.0) % PT 12.6 H (9.0-12.0) sec INR 1.3 H (<1.2) Glucose (74-99) mg/dL POC Glucose (mg/dL) 107 H 106 H (75-99) mg/dL Calcium (8.4-10.2) mg/dL ALT (4-34) U/L Total Protein (6.3-8.2) g/dL Albumin (3.5-5.0) g/dL 06/25/20 06/25/20 06/25/20 Range/Units 08:04 08:04 12:18 RBC 2.33 L (3.80-5.40) m/uL Hgb 7.2 L (11.4-16.0) gm/dL Hct 22.1 L (34.0-46.0) % PT (9.0-12.0) sec INR (<1.2) Glucose 120 H (74-99) mg/dL POC Glucose (mg/dL) 135 H (75-99) mg/dL Calcium 7.9 L (8.4-10.2) mg/dL ALT 39 H (4-34) U/L Total Protein 5.2 L (6.3-8.2) g/dL Albumin 2.8 L (3.5-5.0) g/dL 06/25/20 Range/Units 16:59 RBC (3.80-5.40) m/uL Hgb (11.4-16.0) gm/dL Hct (34.0-46.0) % PT (9.0-12.0) sec INR (<1.2) Glucose (74-99) mg/dL POC Glucose (mg/dL) 108 H (75-99) mg/dL Calcium (8.4-10.2) mg/dL ALT (4-34) U/L Total Protein (6.3-8.2) g/dL Albumin (3.5-5.0) g/dL
[2020-06-25 20:26] LABS: Glucose,Whole Blood 136 mg/dL (75-99)
[2020-06-25] MEDS: traZODone HCL 50 MG TAB PO SCH (20:59)
[2020-06-25] MEDS: ESCITALOPRAM 10 MG TAB PO SCH (21:01)
[2020-06-26] MEDS: traMADol 50 MG TAB PO PRN ×4 (03:21→21:03)
[2020-06-26] MEDS: HEPARIN SODIUM,PORCINE 5,000 UNIT/ML 1 ML VIAL SQ SCH ×3 (03:24→15:30)
[2020-06-26 05:23] VITALS: RESP 18
[2020-06-26 06:16] LABS: Glucose,Whole Blood 94 mg/dL (75-99)
[2020-06-26] MEDS: ACETAMINOPHEN TAB 500 MG TAB PO PRN ×3 (06:48→18:31)
[2020-06-26] MEDS: PANTOPRAZOLE 40 MG TABLET PO SCH (06:48)
[2020-06-26] MEDS: FERROUS SULFATE 325 MG TAB PO SCH ×2 (06:48→17:19)
[2020-06-26] MEDS: ASCORBIC ACID 500 MG TAB PO SCH ×2 (06:48→17:19)
[2020-06-26] MEDS: CALCIUM CARB-VIT D 500MG-200UN 1 EACH TAB PO SCH ×2 (06:48→17:19)
[2020-06-26 07:34] LABS: HCT 24.4 % (34.0-46.0); HGB 7.7 gm/dL (11.4-16.0); MCH 30.3 pg (25.0-35.0); MCHC 31.6 g/dL (31.0-37.0); Mean Platelet Volume 8.2; Platelet Count 276 k/uL (150-450); RBC 2.55 m/uL (3.80-5.40); RDW 14.1 % (11.5-15.5); WBC 9.9 k/uL (3.8-10.6)
[2020-06-26] MEDS: IPRATROPIUM-ALBUTEROL 3 ML NEB INHALATION SCH ×4 (07:40→20:09)
[2020-06-26 07:44] LABS: INR 1.4 (<1.2); Prothrombin Time 14.2 sec (9.0-12.0)
[2020-06-26 07:52] LABS: African American GFR (CKD) >90 (>60 ml/min/1.73 sqM); Anion Gap 5 mmol/L; Blood Urea Nitrogen 15 mg/dL (7-17); Calcium 8.2 mg/dL (8.4-10.2); Carbon Dioxide 27 mmol/L (22-30); Chloride 106 mmol/L (98-107); Glucose 89 mg/dL (74-99); Magnesium 1.8 mg/dL (1.6-2.3); Non-African American GFR(CKD) >90 (>60 ml/min/1.73 sqM); Potassium 3.8 mmol/L (3.5-5.1); Sodium 138 mmol/L (137-145)
[2020-06-26] MEDS: INSULIN ASPART (NovoLOG) 100 UNIT/ML VIAL SQ SCH ×4 (08:16→21:04)
[2020-06-26] MEDS: ATORVASTATIN 40 MG TAB PO SCH (08:32)
[2020-06-26] MEDS: MAGNESIUM OXIDE 400 MG TAB PO SCH ×2 (08:32→21:03)
[2020-06-26] MEDS: METOPROLOL TARTRATE 12.5 MG TAB PO SCH ×2 (08:33→21:03)
[2020-06-26] MEDS: clonazePAM 0.5 MG TAB PO SCH ×2 (08:33→21:02)
[2020-06-26] MEDS: ASPIRIN 325 MG TAB PO SCH (08:33)
[2020-06-26] MEDS: FUROSEMIDE 20 MG TAB PO SCH (08:33)
[2020-06-26] MEDS: CYCLOBENZAPRINE 10 MG TAB PO PRN ×2 (08:33→21:04)
[2020-06-26] MEDS: LIDOCAINE 5% PATCH TOPICAL SCH (08:34)
--- NOTE | 2020-06-26 08:39 | XR ---
EXAMINATION TYPE: XR chest 2V DATE OF EXAM: 06/26/2020 COMPARISON: Chest x-ray from yesterday and older studies. HISTORY: Post open cardiac surgery. TECHNIQUE: Frontal and lateral views of the chest are obtained. FINDINGS: Overlying sternal wires along with circular cardiac closure device redemonstrated. There ar e small bilateral pleural effusions with bibasilar atelectasis. Upper lungs remain clear without pneu mothorax. Cardiac silhouette size stable and within normal limits. Osseous structures are intact. IMPRESSION: Stable small bilateral pleural effusions and associated bibasilar compressive atelectasi s.
--- NOTE | 2020-06-26 09:46 | P.PN ---
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 Previous medical history of hypertension, chronic grade 2 diastolic heart failur e, chronic low back pain/fibromyalgia, Crohn's disease, anxiety/depression, ADHD, rheumatoid arthritis, PTSD, obesity POD #5 mitral valve replacement with a 25/33 mm On-X mechanical mitral valve, ligation of the left atrial appendage, epi-aortic ultrasonography Postoperative acute blood loss anemia, expected outcome of surgery given hemodilution and cardiopulmonary bypass pump Postoperative transaminitis, unexpected, likely due to volume changes, resolving Postoperative leukocytosis, likely reactive, resolved The patient is currently sitting up in a recliner in no acute distress [facility]. States pain is mostly controlled. Denies shortness of breath. Remains in normal sinus rhythm and hemodynamically stable. Patient was started on Coumadin, continue to wait for INR to be therapeutic. Patient is frustrated with being in the hospital, states she has not getting any sleep and really wants to go home. Discussed with the patient the importance of achieving and maintaining a therapeutic INR. Objective - Vital Signs Vital signs: Vital Signs Temp 98.9 F 06/26/20 08:00 Pulse 77 06/26/20 08:00 Resp 18 06/26/20 08:00 BP 88/56 06/26/20 08:00 Pulse Ox 95 06/26/20 08:00 Intake & Output 06/25/20 06/26/20 06/26/20 18:59 06:59 18:59 Intake Total 480 240 Balance 480 240 Weight 93.1 kg Intake: Oral 480 240 Other: Voiding Method Indwelling Catheter # Voids 3 ABP, PAP, CO, CI - Last Documented Arterial Blood Pressure 91/56 Pulmonary Artery Pressure 42/25 Cardiac Output 7.9 Cardiac Index 4 - Constitutional General appearance: Present: cooperative, no acute distress, obese - Respiratory Details: Lungs sounds diminished bilaterally. Respirations even, nonlabored. Currently on room air with oxygen saturation 94%. Able to achieve 1500 mL on her incentive spirometry. Strong dry cough. - Cardiovascular Details: S1, S2 present, positive valvular click. Regular rate and rhythm, sinus rhythm on telemetry. Sternum stable. Palpable peripheral pulses bilaterally. Trace bilateral lower extremity edema present. Heart hugger in place with patient demonstrating appropriate use. Antiembolism stockings, SCDs present. - Gastrointestinal Gastrointestinal Comment(s): Abdomen soft, nontender, nondistended. Active bowel sounds present 4 quadrants. Tolerating diet. Positive bowel movement - Genitourinary Genitourinary Comment(s): Continues to void - Integumentary Integumentary Comment(s): Skin is warm and dry with evidence of good perfusion. Anterior chest incision well approximated without redness or drainage - Neurologic Neurologic: Present: CNII-XII intact - Musculoskeletal Musculoskeletal: Present: gait normal, strength equal bilaterally - Psychiatric Psychiatric: Present: A&O x's 3, appropriate affect, intact judgment & insight - Allied health notes Allied health notes reviewed: nursing - Labs CBC & Chem 7: 06/26/20 07:04 06/26/20 07:04 Labs: Abnormal Lab Results - Last 24 Hours (Table) 06/25/20 06/25/20 06/25/20 Range/Units 12:18 16:59 20:24 RBC (3.80-5.40) m/uL Hgb (11.4-16.0) gm/dL Hct (34.0-46.0) % PT (9.0-12.0) sec INR (<1.2) POC Glucose (mg/dL) 135 H 108 H 136 H (75-99) mg/dL Calcium (8.4-10.2) mg/dL 06/26/20 06/26/20 06/26/20 Range/Units 07:04 07:04 07:04 RBC 2.55 L (3.80-5.40) m/uL Hgb 7.7 L (11.4-16.0) gm/dL Hct 24.4 L (34.0-46.0) % PT 14.2 H (9.0-12.0) sec INR 1.4 H (<1.2) POC Glucose (mg/dL) (75-99) mg/dL Calcium 8.2 L (8.4-10.2) mg/dL - Imaging and Cardiology Chest x-ray: report reviewed, image reviewed Assessment and Plan Assessment: 1. 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 Hypertension 3. Chronic grade 2 diastolic heart failure 4. Chronic low back pain/fibromyalgia 5. Crohn's disease 6. Anxiety/depression 7. ADHD 8. Rheumatoid arthritis 9. PTSD 10. Obesity 11. Postoperative acute blood loss anemia 12. Postoperative transaminitis, resolving 13. Postoperative leukocytosis, resolved Plan: 1. Continue aspirin, statin, beta imani therapy. Will increase beta imani therapy as tolerated 2. Encourage incentive spirometry 10 times every hour while awake. Bronchodilators per pulmonology 3. Increase activity, ambulate as tolerated. PT/OT/cardiac rehab following. Continue to shower daily 4. Continue anticoagulation with Coumadin, today's dose 10 mg for INR 1.4. Goal INR 2.5-3. Will draw daily PT/INR 5. Will monitor daily labs and x-rays. Electrolyte replacement per protocol. No transfusion at this time. 6. GI/DVT prophylaxis 7. Pain control with current medication regimen. 8. Continue Flexeril to 10 mg 3 times daily as needed. 9. Insulin management per primary care service. Patient is not diabetic, pr eoperative hemoglobin A1c 4.7% 10. Discharge planning in progress. Anticipate discharge to home with home care once patient's Coumadin level greater than 2. Post-discharge INR to be drawn on Mondays and with results sent to Dr. Powell's office for Coumadin dosage adjustment 11. More recommendations to follow Time with Patient: Greater than 30
[2020-06-26 11:18] LABS: Glucose,Whole Blood 104 mg/dL (75-99)
[2020-06-26] MEDS: POTASSIUM CHLORIDE ER 20 MEQ TAB.ER PO SCH (11:24)
--- NOTE | 2020-06-26 12:12 | P.PN ---
Subjective Progress Note Date: 06/26/20 Principal diagnosis: CHF Patient seen and examined at chair side. Patient is in good spirits today. Patient is just awaiting for her INR to be between 2.5 and 3.5. Today INR love btherapeutic at 1.4. She denies shortness of breath, postsurgical chest pain is minimal, denies nausea vomiting fevers or chills. Patient is a 45-year-old female with a history of hypertension, fibromyalgia, rheumatoid arthritis, IBS, and severe mitral regurgitation who presented to the hospital for mitral valve replacement. She was recently hospitalized here from 06/09/2020 - 06/14/2020 secondary to acute congestive heart failure. During that evaluation she was found to have severe mitral regurgitation, and normal coronary arteries on cath. Subsequently they've planned for mitral valve replacement. On 06/21/2020 she underwent mitral valve replacement, ligation of the last atrial appendage, and epi-aortic US. She was subsequently admitted to the ICU. She was intubated, sedated, with mediastinal and chest tubes in place. She was successfully extubated the evening of 06/21 all tubes have been removed. Objective - Vital Signs Vital signs: Vital Signs Temp 98.9 F 06/26/20 08:00 Pulse 76 06/26/20 11:29 Resp 18 06/26/20 11:29 BP 107/60 06/26/20 11:29 Pulse Ox 96 06/26/20 11:29 Intake & Output 06/25/20 06/26/20 06/26/20 18:59 06:59 18:59 Intake Total 480 240 Balance 480 240 Weight 93.1 kg Intake: Oral 480 240 Other: Voiding Method Indwelling Catheter # Voids 3 ABP, PAP, CO, CI - Last Documented Arterial Blood Pressure 91/56 Pulmonary Artery Pressure 42/25 Cardiac Output 7.9 Cardiac Index 4 - Exam General: [non toxic], [no distress], [appears at stated age] Derm: [warm], [dry] Head: [atraumatic], [normocephalic], [symmetric] Eyes: [EOMI], [no lid lag], [anicteric sclera] Mouth: [no lip lesion], [mucus membranes moist] Cardiovascular: [S1S2 reg], [no murmur], [positive posterior tibial pulse bilateral], Lungs: [CTA bilateral], [no rhonchi, no rales] , [no accessory muscle use] Abdominal: [soft], [ nontender to palpation], [no guarding], [no appreciable organomegaly] Ext: [no gross muscle atrophy], [no edema], [no contractures] Neuro: [ CN II-XI grossly intact], [no focal neuro deficits] Psych: [Alert], [oriented], [appropriate affect] - Labs CBC & Chem 7: 06/26/20 07:04 06/26/20 07:04 Labs: Abnormal Lab Results - Last 24 Hours (Table) 06/25/20 06/25/20 06/25/20 Range/Units 12:18 16:59 20:24 RBC (3.80-5.40) m/uL Hgb (11.4-16.0) gm/dL Hct (34.0-46.0) % PT (9.0-12.0) sec INR (<1.2) POC Glucose (mg/dL) 135 H 108 H 136 H (75-99) mg/dL Calcium (8.4-10.2) mg/dL 06/26/20 06/26/20 06/26/20 Range/Units 07:04 07:04 07:04 RBC 2.55 L (3.80-5.40) m/uL Hgb 7.7 L (11.4-16.0) gm/dL Hct 24.4 L (34.0-46.0) % PT 14.2 H (9.0-12.0) sec INR 1.4 H (<1.2) POC Glucose (mg/dL) (75-99) mg/dL Calcium 8.2 L (8.4-10.2) mg/dL 06/26/20 Range/Units 11:16 RBC (3.80-5.40) m/uL Hgb (11.4-16.0) gm/dL Hct (34.0-46.0) % PT (9.0-12.0) sec INR (<1.2) POC Glucose (mg/dL) 104 H (75-99) mg/dL Calcium (8.4-10.2) mg/dL Assessment and Plan Assessment: 1. Severe mitral regurg s/p valve replacement - management by CVT, - on coumadin goal INR 2.5-3.5 - INR is subtherapeutic at 1.4 today patient will be given 10 mg of Coumadin tonight 2. Acute blood loss anemia, post op anticipated - stable - follow CBC - oral iron X 30 days 3. Chronic Diastolic CHF, EF 55%, pulm HTN - Metoprolol 4. HTN, currently controlled - lopressor - follow BP 5. Fibromyalgia - flexaril, norco 6. IBS/ Crohn's disease - not chronically on treatment 7. Anxiety/ depression/ PTSD - Klonopin - Lexapro 8. Obesity, BMI 31.8 - outpatient structured weight loss Leukocytosis, resolved Transaminitis, improved Thrombocytopenia resolved Constipation, resolved Hyponatremia, resolved Outpatient follow-up with Ladi johnson for PCP and Osmin Solomon for psych on discharge tab. Time with Patient: Greater than 30
--- NOTE | 2020-06-26 14:05 | PN ---
PROGRESS NOTE This is the lady who has had a mitral valve replacement performed by Dr. Powell. She has a mechanical mitral valve. She is doing well, maintaining sinus rhythm. Denies chest pain. She is ambulating without symptoms. Vitals are stable, no JVD, S1, S2 heard normally. Prosthetic valve clicks are audible. Lungs are clear. Abdomen and lower extremity exam unchanged. The patient's INR is not therapeutic yet. She is going to be staying one more day with additional Coumadin given today. From a cardiac standpoint, I would recommend that we continue current medications. Check PT, INR tomorrow. She can hopefully be discharged tomorrow if the PT, INR is acceptable. MMODL / IJN: [id number] /
[2020-06-26 17:00] LABS: Glucose,Whole Blood 108 mg/dL (75-99)
[2020-06-26] MEDS ORDERED: WARFARIN 10 MG TAB PO ONE (18:00)
[2020-06-26] MEDS: traZODone HCL 50 MG TAB PO SCH (21:04)
[2020-06-26] MEDS: ESCITALOPRAM 10 MG TAB PO SCH (21:04)
[2020-06-27] MEDS: ACETAMINOPHEN TAB 500 MG TAB PO PRN ×2 (01:00→06:58)
[2020-06-27] MEDS: HEPARIN SODIUM,PORCINE 5,000 UNIT/ML 1 ML VIAL SQ SCH ×2 (02:25→08:28)
[2020-06-27] MEDS: traMADol 50 MG TAB PO PRN ×2 (03:46→09:33)
[2020-06-27 06:18] LABS: Glucose,Whole Blood 103 mg/dL (75-99)
[2020-06-27 06:39] LABS: Basophils # (A) 0.1 k/uL (0-0.2); Basophils % (A) 1 %; Eosinophils # (A) 0.3 k/uL (0-0.7); Eosinophils % (A) 4 %; HCT 25.1 % (34.0-46.0); HGB 8.1 gm/dL (11.4-16.0); Lymphocytes % (A) 21 %; MCH 30.3 pg (25.0-35.0); MCHC 32.4 g/dL (31.0-37.0); MCV 93.5 fL (80.0-100.0); Mean Platelet Volume 7.9; Monocytes # (A) 0.9 k/uL (0-1.0); Monocytes % (A) 9 %; Neutrophils # (A) 6.3 k/uL (1.3-7.7); Neutrophils % (A) 65 %; Platelet Count 323 k/uL (150-450); RBC 2.68 m/uL (3.80-5.40); WBC 9.7 k/uL (3.8-10.6)
[2020-06-27 06:45] LABS: INR 2.7 (<1.2); Prothrombin Time 25.9 sec (9.0-12.0)
[2020-06-27] MEDS: PANTOPRAZOLE 40 MG TABLET PO SCH (06:52)
[2020-06-27] MEDS: CYCLOBENZAPRINE 10 MG TAB PO PRN (06:52)
[2020-06-27] MEDS: ASCORBIC ACID 500 MG TAB PO SCH (06:52)
[2020-06-27] MEDS: CALCIUM CARB-VIT D 500MG-200UN 1 EACH TAB PO SCH (06:52)
[2020-06-27] MEDS: FERROUS SULFATE 325 MG TAB PO SCH (06:52)
[2020-06-27 07:01] LABS: ALT 28 U/L (4-34); AST 27 U/L (14-36); African American GFR (CKD) >90 (>60 ml/min/1.73 sqM); Albumin 2.9 g/dL (3.5-5.0); Alkaline Phosphatase 84 U/L (38-126); Anion Gap 7 mmol/L; Blood Urea Nitrogen 15 mg/dL (7-17); Calcium 8.1 mg/dL (8.4-10.2); Carbon Dioxide 25 mmol/L (22-30); Chloride 107 mmol/L (98-107); Glucose 94 mg/dL (74-99); Non-African American GFR(CKD) >90 (>60 ml/min/1.73 sqM); Potassium 4.1 mmol/L (3.5-5.1); Sodium 139 mmol/L (137-145); Total Bilirubin 0.4 mg/dL (0.2-1.3); Total Protein 5.9 g/dL (6.3-8.2)
[2020-06-27] MEDS: IPRATROPIUM-ALBUTEROL 3 ML NEB INHALATION SCH ×2 (07:29→12:31)
--- NOTE | 2020-06-27 07:40 | XR ---
EXAMINATION TYPE: XR chest 2V DATE OF EXAM: 06/27/2020 COMPARISON: 06/26/2020 HISTORY: Chest pain TECHNIQUE: Frontal and lateral views of the chest are obtained. FINDINGS: Basilar infiltrates and/or atelectasis persist without significant interval change. No evidence for pneumothorax. No pleural effusion. The cardiac silhouette size is within normal limits. The osseous structures are grossly intact. IMPRESSION: 1. Basilar infiltrates and/or atelectasis persist without significant interval change.
--- NOTE | 2020-06-27 08:15 | P.PN ---
Subjective Principal diagnosis: CHF. Patient seen and examined at chair side. Patient's INR is 2.7 today and will be discharged by cardiothoracic surgery. Patient denies chest pain, shortness of breath, nausea, vomiting, fever, or chills. Patient is a 45-year-old female with a history of hypertension, fibromyalgia, rheumatoid arthritis, IBS, and severe mitral regurgitation who presented to the hospital for mitral valve replacement. She was recently hospitalized here from 06/09/2020 - 06/14/2020 secondary to acute congestive h eart failure. During that evaluation she was found to have severe mitral regurgitation, and normal coronary arteries on cath. Subsequently they've planned for mitral valve replacement. On 06/21/2020 she underwent mitral valve replacement, ligation of the last atrial appendage, and epi-aortic US. She was subsequently admitted to the ICU. She was intubated, sedated, with mediastinal and chest tubes in place. She was successfully extubated the evening of 06/21 all tubes have been removed. Objective - Vital Signs Vital signs: Vital Signs Temp 98.5 F 06/27/20 04:00 Pulse 72 06/27/20 07:45 Resp 18 06/27/20 04:00 BP 102/65 06/27/20 04:00 Pulse Ox 97 06/27/20 04:00 Intake & Output 06/26/20 06/27/20 06/27/20 18:59 06:59 18:59 Intake Total 480 100 Balance 480 100 Weight 92.8 kg Intake: Oral 480 100 Other: Voiding Method Toilet # Voids 1 ABP, PAP, CO, CI - Last Documented Arterial Blood Pressure 91/56 Pulmonary Artery Pressure 42/25 Cardiac Output 7.9 Cardiac Index 4 - Exam General: [non toxic], [no distress], [appears at stated age] Derm: [warm], [dry] Head: [atraumatic], [normocephalic], [symmetric] Eyes: [EOMI], [no lid lag], [anicteric sclera] Mouth: [no lip lesion], [mucus membranes moist] Cardiovascular: [S1S2 reg], [no murmur], [positive posterior tibial pulse bilateral], Lungs: [CTA bilateral], [no rhonchi, no rales] , [no accessory muscle use] Abdominal: [soft], [ nontender to palpation], [no guarding], [no appreciable organomegaly] Ext: [no gross muscle atrophy], [no edema], [no contractures] Neuro: [ CN II-XI grossly intact], [no focal neuro deficits] Psych: [Alert], [oriented], [appropriate affect.] - Labs CBC & Chem 7: 06/27/20 06:15 06/27/20 06:15 Labs: Abnormal Lab Results - Last 24 Hours (Table) 06/26/20 06/26/20 06/27/20 Range/Units 11:16 16:58 06:15 RBC 2.68 L (3.80-5.40) m/uL Hgb 8.1 L (11.4-16.0) gm/dL Hct 25.1 L (34.0-46.0) % PT (9.0-12.0) sec INR (<1.2) POC Glucose (mg/dL) 104 H 108 H (75-99) mg/dL Calcium (8.4-10.2) mg/dL Total Protein (6.3-8.2) g/dL Albumin (3.5-5.0) g/dL 06/27/20 06/27/20 06/27/20 Range/Units 06:15 06:15 06:16 RBC (3.80-5.40) m/uL Hgb (11.4-16.0) gm/dL Hct (34.0-46.0) % PT 25.9 H (9.0-12.0) sec INR 2.7 H (<1.2) POC Glucose (mg/dL) 103 H (75-99) mg/dL Calcium 8.1 L (8.4-10.2) mg/dL Total Protein 5.9 L (6.3-8.2) g/dL Albumin 2.9 L (3.5-5.0) g/dL Assessment and Plan Assessment: 1. Severe mitral regurg s/p valve replacement - management by CVT, - on coumadin goal INR 2.5-3.5 - INR is therapeutic at 2.7 - discharge planning initiated by cardiothoracic surgery 2. Acute blood loss anemia, post op anticipated - stable - follow CBC - oral iron X 30 days 3. Chronic Diastolic CHF, EF 55%, pulm HTN - Metoprolol 4. HTN, currently controlled - lopressor - follow BP 5. Fibromyalgia - flexaril, norco 6. IBS/ Crohn's disease - not chronically on treatment 7. Anxiety/ depression/ PTSD - Klonopin - Lexapro 8. Obesity, BMI 31.8 - outpatient structured weight loss Leukocytosis, resolved Transaminitis, improved Thrombocytopenia resolved Constipation, resolved Hyponatremia, resolved Outpatient follow-up with Ladi johnson for PCP and Osmin Solomon for psych on discharge tab. Time with Patient: Greater than 30
[2020-06-27] MEDS: INSULIN ASPART (NovoLOG) 100 UNIT/ML VIAL SQ SCH ×2 (08:28→12:05)
[2020-06-27] MEDS: ASPIRIN 325 MG TAB PO SCH (08:35)
[2020-06-27] MEDS: ATORVASTATIN 40 MG TAB PO SCH (08:35)
[2020-06-27] MEDS: clonazePAM 0.5 MG TAB PO SCH (08:35)
[2020-06-27] MEDS: FUROSEMIDE 20 MG TAB PO SCH (08:35)
[2020-06-27] MEDS: MAGNESIUM OXIDE 400 MG TAB PO SCH (08:35)
[2020-06-27] MEDS: LIDOCAINE 5% PATCH TOPICAL SCH (08:35)
[2020-06-27] MEDS: METOPROLOL TARTRATE 12.5 MG TAB PO SCH (08:36)
[2020-06-27] MEDS: POTASSIUM CHLORIDE ER 20 MEQ TAB.ER PO SCH (08:36)
[2020-06-27] MEDS ORDERED: METOPROLOL TARTRATE 12.5 MG TAB PO STA (09:15)
--- NOTE | 2020-06-27 10:19 | P.PN ---
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 Previous medical history of hypertension, chronic grade 2 diastolic heart failur e, chronic low back pain/fibromyalgia, Crohn's disease, anxiety/depression, ADHD, rheumatoid arthritis, PTSD, obesity POD #6 mitral valve replacement with a 25/33 mm On-X mechanical mitral valve, ligation of the left atrial appendage, epi-aortic ultrasonography Postoperative acute blood loss anemia, expected outcome of surgery given hemodilution and cardiopulmonary bypass pump Postoperative transaminitis, unexpected, likely due to volume changes, resolved Postoperative leukocytosis, likely reactive, resolved The patient is currently sitting up in a recliner in no acute distress on the cardiac stepdown unit. States pain is mostly controlled. Denies shortness of breath. Remains in normal sinus rhythm and hemodynamically stable. Patient was started on Coumadin, INR therapeutic this morning at 2.7. Anticipate discharge to home this afternoon. Patient has been ambulatory in the hallway without difficulty Objective - Vital Signs Vital signs: Vital Signs Temp 98.8 F 06/27/20 08:00 Pulse 78 06/27/20 08:00 Resp 18 06/27/20 08:00 BP 107/63 06/27/20 08:00 Pulse Ox 95 06/27/20 08:00 Intake & Output 06/26/20 06/27/20 06/27/20 18:59 06:59 18:59 Intake Total 480 100 Balance 480 100 Weight 92.8 kg Intake: Oral 480 100 Other: Voiding Method Toilet # Voids 1 ABP, PAP, CO, CI - Last Documented Arterial Blood Pressure 91/56 Pulmonary Artery Pressure 42/25 Cardiac Output 7.9 Cardiac Index 4 - Constitutional General appearance: Present: cooperative, no acute distress, obese - Respiratory Details: Lungs sounds diminished bilaterally. Respirations even, nonlabored. Currently on room air with oxygen saturation 97%. Able to achieve 1250 mL on her incentive spirometry. Strong dry cough. - Cardiovascular Details: S1, S2 present, positive valvular click. Regular rate and rhythm, sinus rhythm on telemetry. Sternum stable. Palpable peripheral pulses bilaterally. Trace bilateral lower extremity edema present. Heart hugger in place with patient demonstrating appropriate use. Antiembolism stockings, SCDs present. - Gastrointestinal Gastrointestinal Comment(s): Abdomen soft, nontender, nondistended. Active bowel sounds present 4 quadrants. Tolerating diet. Positive bowel movement - Genitourinary Genitourinary Comment(s): Continues to void - Integumentary Integumentary Comment(s): Skin is warm and dry with evidence of good perfusion. Anterior chest incision well approximated without redness or drainage - Neurologic Neurologic: Present: CNII-XII intact - Musculoskeletal Musculoskeletal: Present: gait normal, strength equal bilaterally - Psychiatric Psychiatric: Present: A&O x's 3, appropriate affect, intact judgment & insight - Allied health notes Allied health notes reviewed: nursing - Labs CBC & Chem 7: 06/27/20 06:15 06/27/20 06:15 Labs: Abnormal Lab Results - Last 24 Hours (Table) 06/26/20 06/26/20 06/27/20 Range/Units 11:16 16:58 06:15 RBC 2.68 L (3.80-5.40) m/uL Hgb 8.1 L (11.4-16.0) gm/dL Hct 25.1 L (34.0-46.0) % PT (9.0-12.0) sec INR (<1.2) POC Glucose (mg/dL) 104 H 108 H (75-99) mg/dL Calcium (8.4-10.2) mg/dL Total Protein (6.3-8.2) g/dL Albumin (3.5-5.0) g/dL 06/27/20 06/27/20 06/27/20 Range/Units 06:15 06:15 06:16 RBC (3.80-5.40) m/uL Hgb (11.4-16.0) gm/dL Hct (34.0-46.0) % PT 25.9 H (9.0-12.0) sec INR 2.7 H (<1.2) POC Glucose (mg/dL) 103 H (75-99) mg/dL Calcium 8.1 L (8.4-10.2) mg/dL Total Protein 5.9 L (6.3-8.2) g/dL Albumin 2.9 L (3.5-5.0) g/dL - Imaging and Cardiology Chest x-ray: report reviewed, image reviewed Assessment and Plan Assessment: 1. 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 Hypertension 3. Chronic grade 2 diastolic heart failure 4. Chronic low back pain/fibromyalgia 5. Crohn's disease 6. Anxiety/depression 7. ADHD 8. Rheumatoid arthritis 9. PTSD 10. Obesity 11. Postoperative acute blood loss anemia 12. Postoperative transaminitis, resolving 13. Postoperative leukocytosis, resolved Plan: 1. Continue aspirin, statin, beta imani therapy. 2. Encourage incentive spirometry 10 times every hour while awake. Bronchodilators per pulmonology 3. Increase activity, ambulate as tolerated. PT/OT/cardiac rehab following. Continue to shower daily 4. Continue anticoagulation with Coumadin, today's dose 5 mg for INR 2.7. Goal INR 2.5-3. Will draw daily PT/INR 5. Will monitor daily labs and x-rays. Electrolyte replacement per protocol. No transfusion at this time. 6. GI/DVT prophylaxis 7. Pain control with current medication regimen. 8. Continue Flexeril to 10 mg 3 times daily as needed. 9. Insulin management per primary care service. Patient is not diabetic, preoperative hemoglobin A1c 4.7% 10. Discharge planning in progress. Anticipate discharge to home with home care this afternoon. Post-discharge INR to be drawn on Mondays and with results sent to Dr. Powell's office for Coumadin dosage adjustment 11. More recommendations to follow Time with Patient: Greater than 30
[2020-06-27 11:16] VITALS: BP 103/53; PULSE 103; TEMP 98.4
[2020-06-27 11:57] LABS: Glucose,Whole Blood 92 mg/dL (75-99)
--- NOTE | 2020-06-27 12:17 | PN ---
PROGRESS NOTE This lady is status post mitral valve repair and vent replacement. She is doing well, maintaining sinus rhythm. INR is 2.7, asymptomatic, ambulating without symptoms. Vitals are stable, JVD not evident, S1-S2 heard normally. Prosthetic valve clicks are audible. Lungs are clear. Abdomen and lower extremity exam unchanged. Patient is being prepared for discharge today and she will see Dr. Winters in 10-14 days. Advised to continue current medical regimen. MMODL / IJN: [id number] /
[2020-06-27] MEDS: ONDANSETRON 4 MG/2 ML VIAL IVP PRN (12:57)
--- NOTE | 2020-06-27 15:10 | P.DS ---
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 History of hypertension 3. Chronic grade 2 diastolic heart failure 4. Chronic low back pain/fibromyalgia 5. IVS/Crohn's disease 6. Anxiety/depression 7. ADHD 8. Rheumatoid arthritis 9. PTSD 10. Obesity 11. Postoperative acute blood loss anemia 12. Postoperative transaminitis 13. Postoperative leukocytosis PRINCIPAL PROCEDURE: 1. Mitral valve replacement with 25/33 mm On-X mechanical mitral valve 2. Ligation of the left atrial appendage 3. Epi-aortic ultrasonography HISTORY OF PRESENT ILLNESS: This is a 45-year-old active female who does not follow with a primary care physician on an outpatient basis. She presented to [facility] emergency department a couple of weeks, complaints of cough and shortness of breath after multiple visits to urgent care for the same symptoms. She also reported's periods of dizziness and syncope occurring for the last 7-8 years. She was admitted for evaluation and treatment which included a transthoracic echocardiogram revealing normal systolic function, EF 55-60%, grade 2 diastolic dysfunction, moderate aortic regurgitation, mildly thickened mitral valve leaflets, severe mitral regurgitation, mild tricuspid regurgitation with moderate pulmonary hypertension. In addition she had a heart catheterization which revealed normal coronary arteries but confirmed severe mitral regurgitation. Further workup included transesophageal echocardiogram which again confirmed severe eccentric mitral regurgitation with mild thickening of the mitral valve leaflets with prolapse of the posterior mitral leaflet. Consultation was placed at that time to Dr. Powell from cardiothoracic surgery. She was recommended to undergo mitral valve repair, possible replacement. The usual perioperative course was discussed in detail with the patient and her family, all risks and benefits were explained, all questions were answered, and consent was obtained to proceed with surgery. The patient was discharged to home on maximal medical therapy to return as an outpatient for surgery. She did receive a dental clearance after having multiple teeth extracted. HOSPITAL COURSE: The patient was brought to the hospital on 06/21/2020, taken to the preoperative area, prepared in the usual fashion, and subsequently taken to the operating room where Dr. Powell found evidence of severe mitral regurgitation consistent with rheumatic valvular heart disease and he performed a mitral valve replacement with a mechanical mitral valve. Upon completion of surgery the patient was transferred to the cardiovascular intensive care unit where she was recovered, monitored hemodynamically, and where she progressed to cardiac rehabilitation phase 1. She was extubated, all lines, tubes, and drips were discontinued when appropriate, and she was transferred to S cardiac stepdown unit for further monitoring and rehabilitation. She was initiated on Coumadin. Her oxygen was titrated down, she continued to work with physical and occupational therapy, she was tolerating oral diet, her pain was controlled, her INR became therapeutic at 2.7, and she was ready to be discharged to home with [facility] on postoperative day #6. She received written and verbal instruction regarding her medications, activity restrictions, signs and symptoms requiring physician notification, and follow-up appointments. The patient is to have her PT/INR drawn every Thursday and with results called to cardiothoracic surgeon for dosing of Coumadin. COMPLICATIONS: The patient experienced postoperative acute blood loss anemia, transaminitis, and leukocytosis, all which required no treatment. Patient Condition at Discharge: Stable Plan - Discharge Summary Discharge Rx Participant: Yes New Discharge Prescriptions: New Aspirin 325 mg PO DAILY #30 tab Warfarin [Coumadin] 5 mg PO DAILY@1800 #30 tab Ferrous Sulfate [Iron (65 MG Elemental)] 325 mg PO BID-W/MEALS #60 tab Furosemide [Lasix] 20 mg PO DAILY #30 tab Atorvastatin [Lipitor] 40 mg PO DAILY #30 tab Metoprolol Tartrate [Lopressor] 25 mg PO BID #60 tab Pantoprazole [Protonix] 40 mg PO AC-BRKFST #[address] tablet.[address] Chow-Docusate Sodium [Senokot-S] 2 each PO HS PRN tab PRN Reason: Constipation traMADol HCl [Ultram] 50 mg PO Q6HR PRN #12 tab PRN Reason: Pain Ascorbic Acid [Vitamin C] 500 mg PO BID-W/MEALS #60 tab Continue traZODone HCL 150 mg PO HS clonazePAM [KlonoPIN] 0.5 mg PO BID Acetaminophen [Tylenol Extra Strength] 1,000 mg PO Q6H PRN PRN Reason: Pain Escitalopram Oxalate [Lexapro] 10 mg PO HS Cranberry Fruit Extract [Cranberry] 500 mg PO DAILY Cyclobenzaprine [Flexeril] 5 mg PO TID PRN #30 tab PRN Reason: Muscle Spasm Discontinued Loperamide [Imodium] 2 mg PO TID PRN PRN Reason: Diarrhea Furosemide [Lasix] 40 mg PO DAILY #30 tab Nitroglycerin Sl Tabs [Nitrostat] 0.4 mg SUBLINGUAL Q5M PRN #30 tab PRN Reason: Chest Pain Discharge Medication List clonazePAM [KlonoPIN] 0.5 mg PO BID 02/03/18 [History] traZODone HCL 150 mg PO HS 02/03/18 [History] Acetaminophen [Tylenol Extra Strength] 1,000 mg PO Q6H PRN 06/09/20 [History] Cranberry Fruit Extract [Cranberry] 500 mg PO DAILY 06/09/20 [History] Escitalopram Oxalate [Lexapro] 10 mg PO HS 06/09/20 [History] Cyclobenzaprine [Flexeril] 5 mg PO TID PRN #30 tab 06/14/20 [Rx] Ascorbic Acid [Vitamin C] 500 mg PO BID-W/MEALS #60 tab 06/27/20 [Rx] Aspirin 325 mg PO DAILY #30 tab 06/27/20 [Rx] Atorvastatin [Lipitor] 40 mg PO DAILY #30 tab 06/27/20 [Rx] Ferrous Sulfate [Iron (65 MG Elemental)] 325 mg PO BID-W/MEALS #60 tab 06/27/20 [Rx] Furosemide [Lasix] 20 mg PO DAILY #30 tab 06/27/20 [Rx] Metoprolol Tartrate [Lopressor] 25 mg PO BID #60 tab 06/27/20 [Rx] Pantoprazole [Protonix] 40 mg PO AC-BRKFST #30 tablet. 06/27/20 [Rx] Sennosides-Docusate Sodium [Senokot-S] 2 each PO HS PRN tab 06/27/20 [Rx] Warfarin [Coumadin] 5 mg PO DAILY@1800 #30 tab 06/27/20 [Rx] traMADol HCl [Ultram] 50 mg PO Q6HR PRN #12 tab 06/27/20 [Rx] Follow up Appointment(s)/Referral(s): Raisa Ly, LON [Nurse Practitioner] - 07/05/20 12:00 pm (in the surgeons office, [address] [facility] [address], [address], ([facility]) behind the hospital) Sukhdev Winters MD [STAFF PHYSICIAN] - 2 Weeks (Dr. Winters's office will call with appointment) Rehab [facility],Cardiac [NON-STAFF] - 4 Weeks (You will receive a phone call for evaluation for cardiac rehab approximately 4-6 weeks after surgery) Osmin Solomon NPC [REFERRING] - 1 Week (Psychiatry nurse practitioner) Nadia Bishop NPC [Nurse Practitioner] - 07/19/20 3:00 pm Agustin Powell MD [STAFF PHYSICIAN] - 07/12/20 9:30 am Ladi Sanon PAC [REFERRING] - 07/11/20 9:15 am ([place] office @ [address] [place] [address] ) [facility] Visiting Nurse, [NON-STAFF] - 1-2 Days Ambulatory/Diagnostic Orders: Complete Blood Count w/diff [LAB.AMB] Time Frame: 3 Days, Location: None Selected Comprehensive Metabolic Panel [LAB.AMB] Time Frame: 3 Days, Location: None Selected Prothrombin Time INR [LAB.AMB] Location: None Selected Activity/Diet/Wound Care/Special Instructions: DISCHARGE INSTRUCTIONS: 1. No driving for 4 weeks, or until physician gives their ok. 2. The patient should sleep in their own bed, no medical bed needed. 3. Stairs are not an issue. If the bedroom is upstairs, it is advised that the patient go up at night and down in the morning for the first week. Go slowly, using handrail and take 1 step at a time. 4. LISBETH hose are to be worn for 30 days or until physician discontinues. 5. Heart hugger is to be worn 100% of the time until physician discontinues.(except when showering) 6. No lifting, pushing, or pulling more than 10 pounds for 12 weeks. The physician will advise of any restriction changes. 7. The patient is expected to continue the prescribed walking program. 8. Continue pain control per as needed orders. 9. Continue with incentive spirometry and splinting/heart hugger until otherwise directed by the physician. 10. Must shower daily using liquid antibacterial soap and a separate white washcloth for each individual incision. 11. Routine sternal incision care. No powders, lotions, ointments on incisions. No dressings are necessary on incisions unless they are draining. Dermabond tape is to remain on sternal incision until surgeon follow-up. 12. Please call surgeon/DROP WIRER for temp greater than 101 F or purulent drainage from incisions. 13. Narcotic medications were discussed with the patient, including the potential for misuse, addiction, and abuse. Opiod Start Talking form was reviewed with the patient. 14. All prescriptions given by surgeon for 30 days. Refills need to be filled through bisque placer/primary care physician. 15. A Red armband has been placed on the patient. It should be worn for 30 days post surgery and will be removed by the cardiac surgeons. If an ER visit is necessary, please make sure the number on the Red armband is called. 16. You have been referred to and are expected to begin Cardiac Rehab in approximately 4-6 weeks. HOME HEALTH SERVICES TO PROVIDE: RN SKILLED HOME CARE SERVICES FOR POST-OP SURGICAL PATIENTS WITH THE FOLLOWING: Coronary Artery Bypass Surgery (CABG), Mitral Valve Replacement/Repair ( MVR), Aortic Valve Replacement/Repair (AVR) RN TO CONTINUE EDUCATION FROM ``ROAD TO A HEALTH HEART PATIENT EDUCATION MANUAL (GIVEN TO PATIENT IN THE HOSPITAL) MEDICATION RECONCILIATION WITH EDUCATION NEEDED ON FIRST HOME VISIT EMPHASIZE IMPORTANCE OF WEARING BREAST SUPPORT/HEART HUGGER ENCOURAGE USE OF INCENTIVE SPIROMETER 10 X EVERY HOUR WHILE AWAKE ENCOURAGE UTILIZATION OF LOWER EXTREMITY COMPRESSION STOCKINGS/LISBETH HOSE and ELEVATE LEGS ABOVE LEVEL OF HEART WHILE AT REST. ENCOURAGE AMBULATION 3-5x/day INCREASING TOLERATES, WHILE AVOIDING EXTREMES IN TEMPERATURE FREQUENCY: RN TO OPEN THE PATIENT WITHIN 24 HOURS OF DISCHARGE FROM THE HOSPITAL WITH TELEHEALTH INSTALLED AT [facility], RN TO VISIT 2-3 X A WEEK FOR 4 WEEKS ESTABLISHED BY PATIENT NEEDS. LABORATORY: CBC, CMP TO BE DRAWN ON THE THIRD DAY HOME, (RAN STAT) FAX RESULTS TO [phone]. For patients on Coumadin, PT/INR to be drawn every and Thursday, ran as STAT, and results called to Cardiothoracic Surgery at or . TELEHEALTH PARAMETERS: WEIGHT: NOTIFY MD OF WEIGHT GAIN OF 2 LBS IN 24 HOURS OR 5 LBS IN ONE WEEK HR: NOTIFY MD OF HR <55 BPM OR HR>100 BPM BP: NOTIFY MD IF BP <90/55 OR BP>140/100 O2 SAT: NOTIFY MD IF PO2<93% ON ROOM AIR SEND TELEHEALTH REPORT TO FINANCIAL INVESTIGATOR AND CARDIOVASCULAR SURGEON THE FIRST WEEK OF CARE AND THEN BI-WEEKLY. PLEASE ADDITIONALLY COMMUNICATE ANY ABNORMALS AND NEW FINDINGS TO THE SURGEONS OFFICE. For any questions or concerns please call drag down Raisa @ or Michael @
[2020-06-27] MEDS ORDERED: WARFARIN 5 MG TAB PO SCH (18:00)
[2020-06-27] MEDS ORDERED: METOPROLOL TARTRATE 25 MG TAB PO SCH (21:00)
--- NOTE | 2020-06-28 15:26 | CDI ---
Documentation Clarification Form Date: 06/28/20 From: Kely Wagner CCS Phone: If you have a question about this query, please contact Elizabeth Lozano, Erp Consultant at [phone] between 8am and 5pm. Admit Date: 06/21/20 Discharge Date:06/27/20 Patient Name: Tabitha Knox Visit Number: [id number] ATTENTION: The Clinical Documentation Specialists (CDI) and [facility] Coding Staff appreciate your assistance in clarifying documentation. Please respond to the clarification below the line at the bottom and electronically sign. The CDI & [facility] Coding staff will review the response and follow-up if needed. Please note: Queries are made part of the Legal Health Record. If you have any questions, please contact the author of this message via ITS. Dear Dr. Powell, Hypotension is documented in the PN dated 06/24. PLAN : Consider decreasing diuretic secondary to hypotension. Continue beta blockers History/Risk Factors: Post valve replacement, ABLA, HHD, CHF Clinical Indicators: Hypotension Patients B/P: 84/53, 81/45 , 97/52 Labs: Hgb 7.4, Hct 23.4, Treatment: Monitor, Decrease diuretic In your professional opinion, can you please specify the etiology of the hypotension if known? Drug Induced Hypotension (please specify drug) Postoperative Hypotension - complication of procedure Postoperative Hypotension- expected outcome of procedure Other Condition, please specify Unable to determine Hypotension not clinically significant MTDD
== END 2020-06-27 14:55 | disposition home health service (06) | DRG 220 ==
LOC: 2ORMAIN 05:32 → 2SICU 12:33 → 3SCARD 06-23 16:20
PROVIDERS: ADMIT Thoracic Surgery (Cardiothoracic Vascular Surgery); ATTEND Thoracic Surgery (Cardiothoracic Vascular Surgery)
PROC: 5A1221Z Performance of Cardiac Output, Continuous (ICD-10-PCS; principal; 2020-06-21 08:00)
PROC: 02L70ZK Occlusion of Left Atrial Appendage, Open Approach (ICD-10-PCS; principal; 2020-06-21 08:00)
PROC: 3E033XZ Introduction of Vasopressor into Peripheral Vein, Percutaneous Approach (ICD-10-PCS; principal; 2020-06-21 08:00)
PROC: 02RG0JZ Replacement of Mitral Valve with Synthetic Substitute, Open Approach (ICD-10-PCS; principal; 2020-06-21 08:00)
DX: I08.0 Rheumatic disorders of both mitral and aortic valves (principal); I50.32 Chronic diastolic (congestive) heart failure; K50.90 Crohn's disease, unspecified, without complications; D62 Acute posthemorrhagic anemia; J98.11 Atelectasis; E87.1 Hypo-osmolality and hyponatremia; I27.22 Pulmonary hypertension due to left heart disease; D69.6 Thrombocytopenia, unspecified; I11.0 Hypertensive heart disease with heart failure; I95.9 Hypotension, unspecified; M06.9 Rheumatoid arthritis, unspecified; D72.829 Elevated white blood cell count, unspecified; F32.9 Major depressive disorder, single episode, unspecified; F43.10 Post-traumatic stress disorder, unspecified; M79.7 Fibromyalgia; F41.9 Anxiety disorder, unspecified; F90.9 Attention-deficit hyperactivity disorder, unspecified type; R74.8 Abnormal levels of other serum enzymes; R74.0 Nonspecific elevation of levels of transaminase and lactic acid dehydrogenase [LDH]; E66.9 Obesity, unspecified; M62.830 Muscle spasm of back; K59.00 Constipation, unspecified; Z68.29 Body mass index [BMI] 29.0-29.9, adult; Z71.3 Dietary counseling and surveillance; Z79.899 Other long term (current) drug therapy; Z90.49 Acquired absence of other specified parts of digestive tract; Z98.890 Other specified postprocedural states; Z88.0 Allergy status to penicillin; Z88.8 Allergy status to other drugs, medicaments and biological substances; Z91.040 Latex allergy status; Z82.49 Family history of ischemic heart disease and other diseases of the circulatory system
CPT/HCPCS: 71045; 71046; 80048; 80053; 80074; 80202; 81025; 82330; 82805; 83735; 85025; 85027; 85520; 85610; 85730; 86850; 86891; 86900; 86901; 86920; 88305; 94002; 94640

== ENCOUNTER → 2020-07-05 | Outpatient (CLI) | payer BC ==
[2020-07-05 20:19] LABS: INR 2.52 (0.90-1.11)
== END | disposition home or self-care (01) ==
LOC: LABWHC1 12:44
PROVIDERS: ATTEND Thoracic Surgery (Cardiothoracic Vascular Surgery)
DX: D68.9 Coagulation defect, unspecified (principal)
CPT/HCPCS: 36415; 85610

== ENCOUNTER → 2020-07-12 | Outpatient (CLI) | payer BC ==
[2020-07-12 14:25] LABS: Prothrombin Time 19.6 sec (9.0-12.0)
== END | disposition home or self-care (01) ==
LOC: LABWHC1 10:03
PROVIDERS: ATTEND Thoracic Surgery (Cardiothoracic Vascular Surgery)
DX: I34.0 Nonrheumatic mitral (valve) insufficiency (principal)
CPT/HCPCS: 36415; 85610

== ENCOUNTER → 2020-08-09 | Outpatient (CLI) | payer BC ==
[2020-08-10 00:50] LABS: INR 1.96 (0.90-1.11); Prothrombin Time 20.4 sec (9.9-11.9)
== END | disposition home or self-care (01) ==
LOC: LABWHC1 15:48
PROVIDERS: ATTEND Thoracic Surgery (Cardiothoracic Vascular Surgery)
DX: Z51.81 Encounter for therapeutic drug level monitoring (principal); Z79.01 Long term (current) use of anticoagulants
CPT/HCPCS: 36415; 85610

== ENCOUNTER 2020-10-30 20:07 | Observation (INO) | payer BC ==
[2020-10-30] MEDS ORDERED: ASPIRIN 81 MG PO STA (20:43)
[2020-10-30] MEDS ORDERED: NITROGLYCERIN OINT 1 INCH/GM PACKET TOPICAL STA (20:43)
--- NOTE | 2020-10-30 20:45 | ED ---
General Adult HPI - General Chief complaint: Chest Pain Stated complaint: Chest pain,SOB Time Seen by Provider: 10/30/20 20:20 Source: patient, RN notes reviewed Mode of arrival: wheelchair Limitations: no limitations - History of Present Illness Initial comments: Patient is a pleasant 45-year-old female presenting to the emergency Department with chest discomfort. Onset of symptoms was 2 days ago. Symptoms do worsen with exertion. Discomfort feels like pressure. Patient does have some associated exertional dyspnea. Patient has been more fatigued lately. Patient did have a mechanical heart valve of the mitral valve done back in May. Dee ent is on Coumadin for this. No leg pain or leg swelling. No fever. Patient did have a single episode of lightheadedness. - Related Data Home Medications Medication Instructions Recorded Confirmed traZODone HCL 150 mg PO HS 02/03/18 10/30/20 Acetaminophen [Tylenol Extra 1,000 mg PO Q6H PRN 06/09/20 10/30/20 Strength] Cranberry Fruit Extract [Cranberry] 500 mg PO DAILY 06/09/20 10/30/20 Ascorbic Acid [Vitamin C] 500 mg PO AC-BID 10/30/20 10/30/20 Cyclobenzaprine [Flexeril] 5 mg PO BID 10/30/20 10/30/20 Dextroamphetamine/Amphetamine 20 mg PO BID 10/30/20 10/30/20 [Adderall] Ferrous Sulfate [Iron (65 MG 325 mg PO AC-BID 10/30/20 10/30/20 Elemental)] Loperamide HCl [Imodium A-D] 2 mg PO BID 10/30/20 10/30/20 Sennosides-Docusate Sodium 2 tab PO HS PRN 10/30/20 10/30/20 [Senokot-S] Warfarin [Coumadin] 5 mg PO MOWEFR@1800 10/30/20 10/30/20 Warfarin [Coumadin] 7.5 mg PO SUTUTHSA@1800 10/30/20 10/30/20 clonazePAM [KlonoPIN] 1 mg PO BID 10/30/20 10/30/20 traMADol HCl [Ultram] 50 mg PO TID PRN 10/30/20 10/30/20 Previous Rx's Medication Instructions Recorded Aspirin 325 mg PO DAILY #30 tab 09/02/20 Furosemide [Lasix] 20 mg PO DAILY #30 tab 06/27/20 Pantoprazole [Protonix] 40 mg PO FABIANO-BRKFST #30 tablet. 06/27/20 Allergies Allergy/AdvReac Type Severity Reaction Status Date / Time latex Allergy Rash/Hives Verified 10/30/20 21:28 Penicillins Allergy Anaphylaxis Verified 10/30/20 21:28 prochlorperazine edisylate Allergy Anaphylaxis Verified 10/30/20 21:28 [From Compazine] prochlorperazine maleate Allergy Anaphylaxis Verified 10/30/20 21:28 [From Compazine] Review of Systems ROS Statement: Those systems with pertinent positive or pertinent negative responses have been documented in the HPI. ROS Other: All systems not noted in ROS Statement are negative. Constitutional: Denies: fever Eyes: Denies: eye pain ENT: Denies: ear pain Respiratory: Reports: dyspnea. Denies: cough Cardiovascular: Reports: chest pain Endocrine: Reports: fatigue Gastrointestinal: Denies: abdominal pain Genitourinary: Denies: dysuria Musculoskeletal: Denies: back pain Skin: Denies: rash Neurological: Denies: weakness Past Medical History Past Medical History: Chest Pain / Angina, Fibromyalgia, Hypertension, Memory Impairment, Rheumatoid Arthritis (RA), Syncope Additional Past Medical History / Comment(s): irritable bowel, crohn's disease, vertigo, hypoglycemia History of Any Multi-Drug Resistant Organisms: None Reported Past Surgical History: Cholecystectomy, Heart Catheterization Additional Past Surgical History / Comment(s): laparoscopy 1994, D&C, colonoscopies Past Anesthesia/Blood Transfusion Reactions: No Reported Reaction Additional Past Anesthesia/Blood Transfusion Reaction / Comment(s): slow to wake up @times Past Psychological History: ADD/ADHD, Anxiety, Depression, Panic Disorder, PTSD Smoking Status: Never smoker - Past Family History Mother Family Medical History: Congestive Heart Failure (CHF) Father Additional Family Medical History / Comment(s): ETOH, unknown history General Exam Limitations: no limitations General appearance: alert, in no apparent distress Head exam: Present: normocephalic Eye exam: Present: normal appearance, PERRL, EOMI Neck exam: Present: normal inspection Respiratory exam: Present: normal lung sounds bilaterally Cardiovascular Exam: Present: regular rate, normal rhythm, systolic murmur Expanded Peripheral pulses: 2+: Radial (R), Radial (L), Dorsalis Pedis (R), Dorsalis Pedis (L) GI/Abdominal exam: Present: soft. Absent: tenderness Extremities exam: Present: normal inspection. Absent: pedal edema, calf tenderness Neurological exam: Present: alert Psychiatric exam: Present: normal affect, normal mood Skin exam: Present: normal color Course Vital Signs 10/30/20 20:12 Temperature 98.4 F Pulse Rate 108 H Respiratory 18 Rate Blood Pressure 129/91 O2 Sat by Pulse 100 Oximetry EKG Findings - EKG Comments: EKG Findings:: Normal sinus rhythm and 97. [place] 144. QRS 82. QT 410. QTc 520. Normal axis. Q waves in leads V1 through V3. No acute ST change. Medical Decision Making - Medical Decision Making Patient reevaluated and resting comfortably in bed. Mild improvement from previous. Patient updated on results and plan. Case was discussed in detail with Carson Wright, who will admit his patient. - Lab Data Result diagrams: 10/30/20 20:52 10/30/20 20:52 Lab Results 10/30/20 10/30/20 10/30/20 Range/Units 20:52 20:52 20:52 WBC 6.5 (3.8-10.6) k/uL RBC 4.55 (3.80-5.40) m/uL Hgb 12.4 (11.4-16.0) gm/dL Hct 36.9 (34.0-46.0) % MCV 81.0 (80.0-100.0) fL MCH 27.2 (25.0-35.0) pg MCHC 33.6 (31.0-37.0) g/dL RDW 15.7 H (11.5-15.5) % Plt Count 312 (150-450) k/uL MPV 6.6 Neutrophils % 54 % Lymphocytes % 29 % Monocytes % 10 % Eosinophils % 3 % Basophils % 1 % Neutrophils # 3.5 (1.3-7.7) k/uL Lymphocytes # 1.9 (1.0-4.8) k/uL Monocytes # 0.7 (0-1.0) k/uL Eosinophils # 0.2 (0-0.7) k/uL Basophils # 0.1 (0-0.2) k/uL PT 29.7 H (9.0-12.0) sec INR 3.1 H (<1.2) APTT 40.0 H (22.0-30.0) sec Sodium 136 L (137-145) mmol/L Potassium 3.6 (3.5-5.1) mmol/L Chloride 104 (98-107) mmol/L Carbon Dioxide 26 (22-30) mmol/L Anion Gap 6 mmol/L BUN 12 (7-17) mg/dL Creatinine 0.59 (0.52-1.04) mg/dL Est GFR (CKD-EPI)AfAm >90 (>60 ml/min/1.73 sqM) Est GFR (CKD-EPI)NonAf >90 (>60 ml/min/1.73 sqM) Glucose 135 H (74-99) mg/dL Calcium 8.9 (8.4-10.2) mg/dL Magnesium 1.7 (1.6-2.3) mg/dL Total Bilirubin 0.7 (0.2-1.3) mg/dL AST 33 (14-36) U/L ALT 21 (4-34) U/L Alkaline Phosphatase 86 (38-126) U/L Troponin I (0.000-0.034) ng/mL NT-Pro-B Natriuret Pep pg/mL Total Protein 7.8 (6.3-8.2) g/dL Albumin 4.0 (3.5-5.0) g/dL 10/30/20 10/30/20 Range/Units 20:52 20:52 WBC (3.8-10.6) k/uL RBC (3.80-5.40) m/uL Hgb (11.4-16.0) gm/dL Hct (34.0-46.0) % MCV (80.0-100.0) fL MCH (25.0-35.0) pg MCHC (31.0-37.0) g/dL RDW (11.5-15.5) % Plt Count (150-450) k/uL MPV Neutrophils % % Lymphocytes % % Monocytes % % Eosinophils % % Basophils % % Neutrophils # (1.3-7.7) k/uL Lymphocytes # (1.0-4.8) k/uL Monocytes # (0-1.0) k/uL Eosinophils # (0-0.7) k/uL Basophils # (0-0.2) k/uL PT (9.0-12.0) sec INR (<1.2) APTT (22.0-30.0) sec Sodium (137-145) mmol/L Potassium (3.5-5.1) mmol/L Chloride (98-107) mmol/L Carbon Dioxide (22-30) mmol/L Anion Gap mmol/L BUN (7-17) mg/dL Creatinine (0.52-1.04) mg/dL Est GFR (CKD-EPI)AfAm (>60 ml/min/1.73 sqM) Est GFR (CKD-EPI)NonAf (>60 ml/min/1.73 sqM) Glucose (74-99) mg/dL Calcium (8.4-10.2) mg/dL Magnesium (1.6-2.3) mg/dL Total Bilirubin (0.2-1.3) mg/dL AST (14-36) U/L ALT (4-34) U/L Alkaline Phosphatase (38-126) U/L Troponin I <0.012 (0.000-0.034) ng/mL NT-Pro-B Natriuret Pep 406 pg/mL Total Protein (6.3-8.2) g/dL Albumin (3.5-5.0) g/dL - Radiology Data Radiology results: image reviewed (Chest x-ray shows no acute process.) Disposition Clinical Impression: Chest pain Disposition: ADMITTED IP TO THIS [facility] Is patient prescribed a controlled substance at d/c from ED?: No Referrals: Carson East MD [Primary Care Provider] - 1-2 days Decision Time: 22:07
[2020-10-30 21:13] LABS: Basophils # (A) 0.1 k/uL (0-0.2); Basophils % (A) 1 %; Eosinophils # (A) 0.2 k/uL (0-0.7); Eosinophils % (A) 3 %; HCT 36.9 % (34.0-46.0); HGB 12.4 gm/dL (11.4-16.0); Lymphocytes # (A) 1.9 k/uL (1.0-4.8); Lymphocytes % (A) 29 %; MCH 27.2 pg (25.0-35.0); MCHC 33.6 g/dL (31.0-37.0); Mean Platelet Volume 6.6; Monocytes # (A) 0.7 k/uL (0-1.0); Monocytes % (A) 10 %; Neutrophils # (A) 3.5 k/uL (1.3-7.7); Neutrophils % (A) 54 %; Platelet Count 312 k/uL (150-450); RBC 4.55 m/uL (3.80-5.40); RDW 15.7 % (11.5-15.5); WBC 6.5 k/uL (3.8-10.6)
[2020-10-30 21:24] LABS: ALT 21 U/L (4-34); AST 33 U/L (14-36); African American GFR (CKD) >90 (>60 ml/min/1.73 sqM); Alkaline Phosphatase 86 U/L (38-126); Anion Gap 6 mmol/L; Blood Urea Nitrogen 12 mg/dL (7-17); Calcium 8.9 mg/dL (8.4-10.2); Carbon Dioxide 26 mmol/L (22-30); Chloride 104 mmol/L (98-107); Glucose 135 mg/dL (74-99); Magnesium 1.7 mg/dL (1.6-2.3); Non-African American GFR(CKD) >90 (>60 ml/min/1.73 sqM); Potassium 3.6 mmol/L (3.5-5.1); Sodium 136 mmol/L (137-145); Total Bilirubin 0.7 mg/dL (0.2-1.3); Total Protein 7.8 g/dL (6.3-8.2)
[2020-10-30 21:29] LABS: INR 3.1 (<1.2); Prothrombin Time 29.7 sec (9.0-12.0)
--- NOTE | 2020-10-30 21:55 | XR ---
EXAMINATION TYPE: XR chest 2V DATE OF EXAM: 10/30/2020 COMPARISON: June 27, 2020 HISTORY: Chest pain TECHNIQUE: FINDINGS: Heart is normal. Lungs are clear. There are sternal wires. Costophrenic angles are clear. T here is cardiac valve surgery. There are chest leads. Bony thorax is intact. IMPRESSION: No active cardiopulmonary disease. There is clearing of the pleural fluid and infiltrates compared to old exam.
[2020-10-30] MEDS ORDERED: NITROGLYCERIN SL TABS 0.4 MG TAB SUBLINGUAL PRN (22:07)
[2020-10-31] MEDS ORDERED: traZODone HCL 50 MG TAB PO SCH
[2020-10-31] MEDS ORDERED: ACETAMINOPHEN TAB 500 MG TAB PO PRN
[2020-10-31] MEDS: clonazePAM 1 MG TAB PO SCH ×2 (00:19→08:55)
[2020-10-31] MEDS: NITROGLYCERIN OINT 1 INCH/GM PACKET TOPICAL SCH ×2 (00:19→06:09)
[2020-10-31 03:53] LABS: Cholesterol 165 mg/dL (<200); HDL Cholesterol 57 mg/dL (40-60); LDL Cholesterol,Calculated 94 mg/dL (0-99); Triglycerides 71 mg/dL (<150)
[2020-10-31 04:18] VITALS: RESP 18
[2020-10-31] MEDS ORDERED: PANTOPRAZOLE 40 MG TABLET PO SCH (07:30)
[2020-10-31] MEDS ORDERED: ASPIRIN 325 MG TAB PO SCH (09:00)
[2020-10-31] MEDS ORDERED: traMADol 50 MG TAB PO PRN (09:00)
[2020-10-31] MEDS ORDERED: NON FORMULARY DRUG (Dextroamphetamine/Amphetamine [Adderall] 20 MG Tablet) PO SCH (09:00)
[2020-10-31] MEDS ORDERED: CYCLOBENZAPRINE 5 MG TAB PO SCH (09:00)
[2020-10-31] MEDS ORDERED: ASPIRIN 81 MG PO SCH (09:00)
[2020-10-31] MEDS ORDERED: FUROSEMIDE 20 MG TAB PO SCH (09:00)
--- NOTE | 2020-10-31 09:10 | CONS ---
CONSULTATION Mrs. Knox is a 45-year-old female who presented with symptoms of progressive fatigue and vague chest discomfort. The patient was admitted in May with symptoms of progressive congestive heart failure, was found to have severe mitral regurgitation, underwent a cardiac catheterization, has no evidence of obstructive coronary artery disease with severe mitral regurgitation and subsequently underwent mitral valve replacement with an On-X mechanical valve. Recently, she has been complaining of some fatigue, although she has been working. She has vague chest discomfort. Her breathing has been stable. She has no dizziness or palpitation. No clear PND nor orthopnea. She denies any cough or fever. No dizziness and no palpitation. Her coronary risk factors negative for smoking. She is a nondiabetic. MEDICATION: Her medications include Lasix, Coumadin, Klonopin, and aspirin once a day. REVIEW OF SYSTEMS: RESPIRATORY SYSTEM: She has no recent wheezing or cough. No obstructive lung disease. GI SYSTEM: No recent GI bleeding. No peptic ulcer disease. SYSTEM: No dysuria or hematuria. NERVOUS SYSTEM: No stroke or seizure. PHYSICAL EXAMINATION: A 45-year-old female, alert, oriented, no apparent distress. Blood pressure 127/70 with the heart rate in the 90s. HEAD: Normocephalic. EYES: Sclerae anicteric. NECK: Good carotid upstroke. No bruit. No jugular venous distention. LUNGS: Clear to auscultation. HEART: Regular rate and rhythm. S1, S2. No S3 with prosthetic mitral sound. No significant murmur. ABDOMEN: Soft, nontender. Positive bowel sounds. No organomegaly. EXTREMITIES: No edema. Intact distal pulses. LAB DATA: Lab data revealed INR of 3.1. Troponin less than 0.012 for 3 samples. Cholesterol 165, LDL of 94. Hemoglobin of 12.4. EKG revealed a sinus mechanism normal axis and intervals. No acute ST-segment changes. Chest x-ray revealed no acute infiltrate. IMPRESSION: 1. Chest discomfort atypical for ischemic heart disease, probably noncardiac. 2. Status post mitral valve replacement in May with no evidence on examination of prosthetic failure. RECOMMENDATION: From the cardiac standpoint, I would stop her nitrate. I would recommend to obtain an echocardiogram with Doppler. Increase her activity. If there is no evidence of abnormality on her echo, then I would expect she should be able to be discharged home today and followed as an outpatient. Thank you for this consult. We will follow with you. MMODL / IJN: [id number] /
--- NOTE | 2020-10-31 12:15 | ECHOF ---
Referral Reason:mvr MEASUREMENTS -------- HEIGHT: 170.2 cm WEIGHT: 92.5 kg BP: RVIDd: 2.8 cm (< 3.3) IVSd: 1.4 cm (0.6 - 1.1) LVIDd: 3.3 cm (3.9 - 5.3) LVPWd: 1.0 cm (0.6 - 1.1) IVSs: 1.5 cm LVIDs: 2.8 cm LVPWs: 1.3 cm LA Diam: 3.8 cm (2.7 - 3.8) Ao Diam: 3.0 cm (2.0 - 3.7) AV Cusp: 1.8 cm (1.5 - 2.6) MV E Dieter: 0.91 m/s MV DecT: 383 ms MV A Dieter: 0.95 m/s MV E/A Ratio: 0.95 AR PHT: 593 ms RAP: 5.00 mmHg RVSP: 23.67 mmHg FINDINGS -------- Sinus rhythm. This was a technically adequate study. The left ventricular size is normal. There is mild concentric left ventricular hypertrophy. Overa ll left ventricular systolic function is low-normal with, an EF between 50 - 55 %. The right ventricle is normal in size. The left atrial size is normal. The right atrial size is normal. There is mild aortic regurgitation. Normal functioning mechanical mv. Mild tricuspid regurgitation present. Right ventricular systolic pressure is normal at < 35 mmHg. There is no pulmonic regurgitation present. The aortic root size is normal. There is a small, generalized pericardial effusion present. CONCLUSIONS -------- 1. The left ventricular size is normal. 2. There is mild concentric left ventricular hypertrophy. 3. Overall left ventricular systolic function is low-normal with, an EF between 50 - 55 %. 4. The right ventricle is normal in size. 5. The left atrial size is normal. 6. The right atrial size is normal. 7. There is mild aortic regurgitation. 8. Normal functioning mechanical mv. 9. Mild tricuspid regurgitation present. 10. There is no pulmonic regurgitation present. 11. The aortic root size is normal. 12. There is a small, generalized pericardial effusion present. STITCH MARKER: Christine Irwin RDCS
--- NOTE | 2020-10-31 17:23 | HP ---
HISTORY AND PHYSICAL This patient is a 45-year-old white female fatigue, atypical chest pain, progressive congestive heart failure, severe mitral regurgitation, underwent heart catheterization. Had no evidence of coronary artery disease. Severe mitral regurgitation, had mitral valve replacement. No clear PND, orthopnea, dizziness. Nondiabetic. Medications are Lasix, Coumadin, Klonopin, aspirin. INR is 3.2. Fourteen- point review of systems otherwise is negative. Blood pressure 127/70, heart rate in the 90s, respiratory rate 20 to 14, temperature afebrile. HEAD: Normocephalic, atraumatic. Pupils equal, round, reactive. Lungs are clear. HEART: S1, S2. ABDOMEN: Soft, nontender. EXTREMITIES: No cyanosis, clubbing, edema. Troponin negative x3. Cholesterol is low. Hemoglobin 12.4. No ST-T changes. Chest x- ray is negative. Noncardiac chest pain most likely, status post mitral valve replacement. Going to do an echo, possibly D-dimer. Rule out PE and then will possibly discharge home once cleared. MMODL / IJN: [id number] /
[2020-10-31 17:45] VITALS: BP 129/75; PULSE 92; TEMP 98.6
[2020-10-31] MEDS ORDERED: WARFARIN 5 MG TAB PO SCH (18:00)
[2020-10-31] MEDS ORDERED: SENNOSIDES-DOCUSATE SODIUM 1 EACH TAB PO PRN (21:00)
[2020-11-01] MEDS ORDERED: WARFARIN 7.5 MG TAB PO SCH (18:00)
== END 2020-10-31 20:01 | disposition left against medical advice (07) ==
LOC: EC 20:07 → 3SCARD 22:07
PROVIDERS: ADMIT Family Medicine; ATTEND Family Medicine
DX: R07.89 Other chest pain (principal); R53.83 Other fatigue; R06.02 Shortness of breath; R06.09 Other forms of dyspnea; R42 Dizziness and giddiness; Z95.2 Presence of prosthetic heart valve; I34.0 Nonrheumatic mitral (valve) insufficiency; I11.0 Hypertensive heart disease with heart failure; I50.9 Heart failure, unspecified; M79.7 Fibromyalgia; M06.9 Rheumatoid arthritis, unspecified; R41.3 Other amnesia; K58.9 Irritable bowel syndrome, unspecified; F41.0 Panic disorder [episodic paroxysmal anxiety]; F43.10 Post-traumatic stress disorder, unspecified; F32.9 Major depressive disorder, single episode, unspecified; F41.9 Anxiety disorder, unspecified; F90.9 Attention-deficit hyperactivity disorder, unspecified type; Z79.01 Long term (current) use of anticoagulants; Z79.899 Other long term (current) drug therapy; Z79.891 Long term (current) use of opiate analgesic; Z88.0 Allergy status to penicillin; Z88.8 Allergy status to other drugs, medicaments and biological substances; Z91.040 Latex allergy status; Z90.49 Acquired absence of other specified parts of digestive tract; Z82.49 Family history of ischemic heart disease and other diseases of the circulatory system
CPT/HCPCS: 93005 ×2; 99285; 36415; 93306; 85379; 83880; 80061; 80053; 83735; 84484 ×2; 85025; 85610; 85730; 71046; G0378 ×2

== ENCOUNTER → 2020-12-24 | Outpatient (CLI) | payer BC, OTHER ==
--- NOTE | 2020-12-24 11:45 | XR ---
EXAMINATION TYPE: XR knee complete RT DATE OF EXAM: 12/24/2020 COMPARISON: 05/13/2012 HISTORY: 45-year-old female M2 5.561 TECHNIQUE: 3 views FINDINGS: There has been interval progression and degenerative spurring within all 3 compartments of the knee. Weightbearing view could better assess the degree of joint space narrowing. Extensor mechanism is int act. No sizable joint effusion. No acute fracture, subluxation, or dislocation. IMPRESSION: Interval progression in tricompartmental degenerative spurring. A weight-bearing view could better as sess the degree of cartilage and joint space loss.
== END ==
LOC: RADXRMAIN 09:36
PROVIDERS: ATTEND Family Medicine
DX: M76.891 Other specified enthesopathies of right lower limb, excluding foot (principal)

== ENCOUNTER 2021-01-13 16:01 | Emergency (ER) | payer BC, OTHER ==
[2021-01-13 16:06] VITALS: TEMP 98.5
--- NOTE | 2021-01-13 16:09 | ED ---
General Adult HPI - General Chief complaint: Shortness of Breath Stated complaint: CALE, possible covid Time Seen by Provider: 01/13/21 16:07 Source: patient Mode of arrival: ambulatory Limitations: no limitations - History of Present Illness Initial comments: Patient presents the ED stating that her brother, who she was recently exposed to, recently tested positive for Covid, and she states that for the past 4 days, she has had diffuse myalgias, a cough, dyspnea and a headache. Patient denies trauma or injury, sudden onset of headache, LOC, neck pain or stiffness, fever or chills, focal numbness/weakness/neuro deficit, visual changes, speech diff iculty, chest pain, hemoptysis, palpitations, dizziness, abdominal pain, nausea/vomiting/diarrhea, dysuria or urinary symptoms, leg or calf swelling or pain, or any other symptoms or complaints. - Related Data Home Medications Medication Instructions Recorded Confirmed Acetaminophen [Tylenol Extra 1,000 mg PO Q6H PRN 06/09/20 01/13/21 Strength] Cyclobenzaprine [Flexeril] 5 mg PO BID 10/30/20 01/13/21 Dextroamphetamine/Amphetamine 20 mg PO BID 10/30/20 01/13/21 [Adderall] Warfarin [Coumadin] 5 mg PO MOWEFR@1800 10/30/20 01/13/21 Warfarin [Coumadin] 7.5 mg PO SUTUTHSA@1800 10/30/20 01/13/21 clonazePAM [KlonoPIN] 1 mg PO BID 10/30/20 01/13/21 traMADol HCl [Ultram] 50 mg PO TID PRN 10/30/20 01/13/21 Furosemide [Lasix] 40 mg PO DAILY 01/13/21 01/13/21 Meclizine [Antivert] 12.5 mg PO Q8H PRN 01/13/21 01/13/21 Ondansetron [Zofran] 4 mg PO Q6H PRN 01/13/21 01/13/21 traZODone HCL 150 mg PO HS 01/13/21 01/13/21 Previous Rx's Medication Instructions Recorded Aspirin 325 mg PO DAILY #30 tab 06/27/20 Pantoprazole [Protonix] 40 mg PO ROSEMARY #30 toby. 06/27/20 Allergies Allergy/AdvReac Type Severity Reaction Status Date / Time latex Allergy Rash/Hives Verified 01/13/21 17:19 Penicillins Allergy Anaphylaxis Verified 01/13/21 17:19 prochlorperazine edisylate Allergy Anaphylaxis Verified 01/13/21 17:19 [From Compazine] prochlorperazine maleate Allergy Anaphylaxis Verified 01/13/21 17:19 [From Compazine] Review of Systems ROS Statement: Those systems with pertinent positive or pertinent negative responses have been documented in the HPI. ROS Other: All systems not noted in ROS Statement are negative. Past Medical History Past Medical History: Chest Pain / Angina, Fibromyalgia, Hypertension, Memory Impairment, Rheumatoid Arthritis (RA), Syncope Additional Past Medical History / Comment(s): irritable bowel, crohn's disease, vertigo, hypoglycemia, mechanical heart valve History of Any Multi-Drug Resistant Organisms: None Reported Past Surgical History: Cardiac Valve Replacement, Cholecystectomy, Heart Catheterization Additional Past Surgical History / Comment(s): laparoscopy 1994, D&C, colonoscopies, mitral valve replacememnt in 06/14. Past Anesthesia/Blood Transfusion Reactions: No Reported Reaction Additional Past Anesthesia/Blood Transfusion Reaction / Comment(s): slow to wake up @times Past Psychological History: ADD/ADHD, Anxiety, Depression, Panic Disorder, PTSD Smoking Status: Never smoker Past Alcohol Use History: None Reported Past Drug Use History: Marijuana - Past Family History Mother Family Medical History: Congestive Heart Failure (CHF) Father Additional Family Medical History / Comment(s): ETOH, unknown history General Exam Limitations: no limitations General appearance: alert, in no apparent distress Head exam: Present: atraumatic, normocephalic Eye exam: Present: normal appearance, EOMI ENT exam: Present: normal oropharynx, mucous membranes moist Neck exam: Present: other (Trachea is in midline). Absent: tenderness, meningismus Respiratory exam: Present: normal lung sounds bilaterally. Absent: respiratory distress, wheezes, rales, rhonchi, stridor Cardiovascular Exam: Present: regular rate, normal rhythm, normal heart sounds, other (Normal radial pulses bilaterally) GI/Abdominal exam: Present: soft. Absent: distended, tenderness, guarding Extremities exam: Present: other (Negative Homans sign bilaterally). Absent: tenderness, pedal edema, calf tenderness Neurological exam: Present: alert, oriented X3, CN II-XII intact. Absent: motor sensory deficit Psychiatric exam: Present: normal affect, normal mood Skin exam: Present: warm, dry, intact, normal color Course Vital Signs 01/13/21 01/13/21 01/13/21 16:03 17:10 19:00 Temperature 98.5 F Pulse Rate 101 H 76 Respiratory 22 18 20 Rate Blood Pressure 190/102 151/105 O2 Sat by Pulse 98 100 Oximetry 01/13/21 19:22 Temperature Pulse Rate 76 Respiratory 16 Rate Blood Pressure 144/92 O2 Sat by Pulse 99 Oximetry - Reevaluation(s) Reevaluation #1: 01/13/21 19:30 Patient denies development of any new symptoms while in the ED. Patient remains alert and breathing comfortably with a normal room air oxygen saturation. Patient's vital signs remained stable and reassuring. Patient is aware of her t est results, and she feels comfortable going home at this time. Patient was counseled about her symptoms and viral URIs. Patient was clearly explained return and follow-up instructions, and she was instructed to follow up closely with her primary care provider. Patient was instructed to have a low threshold for return to the ED should she develop new or worsening symptoms. Patient feels comfortable with this plan. EKG Findings - EKG Comments: EKG Findings:: Normal sinus rhythm, ventricular rate of 84 bpm, no ectopy, normal NE and QRS intervals, slightly prolonged QTc interval of 482 ms, normal axis, no ST or T-wave abnormality Medical Decision Making - Medical Decision Making Patient's EKG, labs and chest x-ray are fairly unremarkable. Patient is afebrile and without leukocytosis. Patient's Covid study is negative. Patient's troponin and BNP are within normal limits. Patient's vital signs are stable and reassuring. I suspect the patient's symptoms may be secondary to a viral URI, and I do not think that they're from an emergent medical condition. Will discharge patient home at this time. Patient was given clear return and follow-up instructions. Patient feels comfortable with this plan. - Lab Data Result diagrams: 01/13/21 16:42 01/13/21 16:42 Lab Results 01/13/21 01/13/21 01/13/21 Range/Units 16:42 16:42 16:42 WBC 4.1 (3.8-10.6) k/uL RBC 4.43 (3.80-5.40) m/uL Hgb 12.1 (11.4-16.0) gm/dL Hct 36.7 (34.0-46.0) % MCV 82.7 (80.0-100.0) fL MCH 27.3 (25.0-35.0) pg MCHC 33.0 (31.0-37.0) g/dL RDW 15.3 (11.5-15.5) % Plt Count 208 (150-450) k/uL MPV 6.9 Neutrophils % 58 % Lymphocytes % 24 % Monocytes % 12 % Eosinophils % 2 % Basophils % 1 % Neutrophils # 2.4 (1.3-7.7) k/uL Lymphocytes # 1.0 (1.0-4.8) k/uL Monocytes # 0.5 (0-1.0) k/uL Eosinophils # 0.1 (0-0.7) k/uL Basophils # 0.0 (0-0.2) k/uL PT 19.3 H (9.0-12.0) sec INR 2.0 H (<1.2) APTT 29.9 (22.0-30.0) sec D-Dimer 0.33 (<0.60) mg/L FEU Sodium 134 L (137-145) mmol/L Potassium 3.4 L (3.5-5.1) mmol/L Chloride 104 (98-107) mmol/L Carbon Dioxide 24 (22-30) mmol/L Anion Gap 6 mmol/L BUN 8 (7-17) mg/dL Creatinine 0.53 (0.52-1.04) mg/dL Est GFR (CKD-EPI)AfAm >90 (>60 ml/min/1.73 sqM) Est GFR (CKD-EPI)NonAf >90 (>60 ml/min/1.73 sqM) Glucose 99 (74-99) mg/dL Plasma Lactic Acid Donnie (0.7-2.0) mmol/L Calcium 8.3 L (8.4-10.2) mg/dL Magnesium 1.5 L (1.6-2.3) mg/dL Total Bilirubin 0.5 (0.2-1.3) mg/dL AST 27 (14-36) U/L ALT 17 (4-34) U/L Alkaline Phosphatase 61 (38-126) U/L Lactate Dehydrogenase 526 (313-618) U/L Troponin I (0.000-0.034) ng/mL C-Reactive Protein <5.0 (<10.0) mg/L NT-Pro-B Natriuret Pep pg/mL Total Protein 7.1 (6.3-8.2) g/dL Albumin 3.7 (3.5-5.0) g/dL Coronavirus (PCR) (Not Detectd) 01/13/21 01/13/21 01/13/21 Range/Units 16:42 16:42 16:42 WBC (3.8-10.6) k/uL RBC (3.80-5.40) m/uL Hgb (11.4-16.0) gm/dL Hct (34.0-46.0) % MCV (80.0-100.0) fL MCH (25.0-35.0) pg MCHC (31.0-37.0) g/dL RDW (11.5-15.5) % Plt Count (150-450) k/uL MPV Neutrophils % % Lymphocytes % % Monocytes % % Eosinophils % % Basophils % % Neutrophils # (1.3-7.7) k/uL Lymphocytes # (1.0-4.8) k/uL Monocytes # (0-1.0) k/uL Eosinophils # (0-0.7) k/uL Basophils # (0-0.2) k/uL PT (9.0-12.0) sec INR (<1.2) APTT (22.0-30.0) sec D-Dimer (<0.60) mg/L FEU Sodium (137-145) mmol/L Potassium (3.5-5.1) mmol/L Chloride (98-107) mmol/L Carbon Dioxide (22-30) mmol/L Anion Gap mmol/L BUN (7-17) mg/dL Creatinine (0.52-1.04) mg/dL Est GFR (CKD-EPI)AfAm (>60 ml/min/1.73 sqM) Est GFR (CKD-EPI)NonAf (>60 ml/min/1.73 sqM) Glucose (74-99) mg/dL Plasma Lactic Acid Donnie 1.3 (0.7-2.0) mmol/L Calcium (8.4-10.2) mg/dL Magnesium (1.6-2.3) mg/dL Total Bilirubin (0.2-1.3) mg/dL AST (14-36) U/L ALT (4-34) U/L Alkaline Phosphatase (38-126) U/L Lactate Dehydrogenase (313-618) U/L Troponin I <0.012 (0.000-0.034) ng/mL C-Reactive Protein (<10.0) mg/L NT-Pro-B Natriuret Pep 347 pg/mL Total Protein (6.3-8.2) g/dL Albumin (3.5-5.0) g/dL Coronavirus (PCR) (Not Detectd) 01/13/21 Range/Units 17:09 WBC (3.8-10.6) k/uL RBC (3.80-5.40) m/uL Hgb (11.4-16.0) gm/dL Hct (34.0-46.0) % MCV (80.0-100.0) fL MCH (25.0-35.0) pg MCHC (31.0-37.0) g/dL RDW (11.5-15.5) % Plt Count (150-450) k/uL MPV Neutrophils % % Lymphocytes % % Monocytes % % Eosinophils % % Basophils % % Neutrophils # (1.3-7.7) k/uL Lymphocytes # (1.0-4.8) k/uL Monocytes # (0-1.0) k/uL Eosinophils # (0-0.7) k/uL Basophils # (0-0.2) k/uL PT (9.0-12.0) sec INR (<1.2) APTT (22.0-30.0) sec D-Dimer (<0.60) mg/L FEU Sodium (137-145) mmol/L Potassium (3.5-5.1) mmol/L Chloride (98-107) mmol/L Carbon Dioxide (22-30) mmol/L Anion Gap mmol/L BUN (7-17) mg/dL Creatinine (0.52-1.04) mg/dL Est GFR (CKD-EPI)AfAm (>60 ml/min/1.73 sqM) Est GFR (CKD-EPI)NonAf (>60 ml/min/1.73 sqM) Glucose (74-99) mg/dL Plasma Lactic Acid Donnie (0.7-2.0) mmol/L Calcium (8.4-10.2) mg/dL Magnesium (1.6-2.3) mg/dL Total Bilirubin (0.2-1.3) mg/dL AST (14-36) U/L ALT (4-34) U/L Alkaline Phosphatase (38-126) U/L Lactate Dehydrogenase (313-618) U/L Troponin I (0.000-0.034) ng/mL C-Reactive Protein (<10.0) mg/L NT-Pro-B Natriuret Pep pg/mL Total Protein (6.3-8.2) g/dL Albumin (3.5-5.0) g/dL Coronavirus (PCR) Not Detected (Not Detectd) - Radiology Data Radiology results: report reviewed (Chest x-ray shows no active cardiopulmonary disease) Disposition Clinical Impression: Upper respiratory infection Disposition: HOME SELF-CARE Condition: Stable Instructions (If sedation given, give patient instructions): Upper Respiratory Infection (ED) Additional Instructions: Return to the ER immediately should you develop increased shortness of breath, new or worsening pain, a high fever, feeling dizzy or faint, or new or worsening symptoms. Follow up closely with your primary care provider. Is patient prescribed a controlled substance at d/c from ED?: No Referrals: Carson East MD [Primary Care Provider] - 1-2 days Time of Disposition: 19:29
[2021-01-13 16:53] LABS: Basophils % (A) 1 %; Eosinophils # (A) 0.1 k/uL (0-0.7); Eosinophils % (A) 2 %; HCT 36.7 % (34.0-46.0); HGB 12.1 gm/dL (11.4-16.0); Lymphocytes % (A) 24 %; MCH 27.3 pg (25.0-35.0); MCV 82.7 fL (80.0-100.0); Mean Platelet Volume 6.9; Monocytes # (A) 0.5 k/uL (0-1.0); Monocytes % (A) 12 %; Neutrophils # (A) 2.4 k/uL (1.3-7.7); Neutrophils % (A) 58 %; Platelet Count 208 k/uL (150-450); RBC 4.43 m/uL (3.80-5.40); RDW 15.3 % (11.5-15.5); WBC 4.1 k/uL (3.8-10.6)
[2021-01-13 17:15] LABS: ALT 17 U/L (4-34); AST 27 U/L (14-36); African American GFR (CKD) >90 (>60 ml/min/1.73 sqM); Albumin 3.7 g/dL (3.5-5.0); Alkaline Phosphatase 61 U/L (38-126); Anion Gap 6 mmol/L; Blood Urea Nitrogen 8 mg/dL (7-17); C Reactive Protein <5.0 mg/L (<10.0); Calcium 8.3 mg/dL (8.4-10.2); Carbon Dioxide 24 mmol/L (22-30); Chloride 104 mmol/L (98-107); D-Dimer 0.33 mg/L FEU (<0.60); Glucose 99 mg/dL (74-99); LDH 526 U/L (313-618); Magnesium 1.5 mg/dL (1.6-2.3); Non-African American GFR(CKD) >90 (>60 ml/min/1.73 sqM); Partial Thromboplastin Time 29.9 sec (22.0-30.0); Potassium 3.4 mmol/L (3.5-5.1); Prothrombin Time 19.3 sec (9.0-12.0); Sodium 134 mmol/L (137-145); Total Bilirubin 0.5 mg/dL (0.2-1.3); Total Protein 7.1 g/dL (6.3-8.2)
--- NOTE | 2021-01-13 17:27 | XR ---
EXAMINATION TYPE: XR chest 1V portable DATE OF EXAM: 01/13/2021 COMPARISON: 10/30/2020 HISTORY: Short of breath. Cough TECHNIQUE: FINDINGS: There is no heart failure nor confluent pneumonic infiltrate. Costophrenic angles are clear . There are sternal wires. There are chest leads. IMPRESSION: No active cardiopulmonary disease. No change.
[2021-01-13 19:10] VITALS: PULSE 76
[2021-01-13 19:25] VITALS: BP 144/92; RESP 16
[2021-01-13 23:01] LABS: Ferritin 10.6 ng/mL (10.0-291.0)
== END 2021-01-13 19:36 | disposition home or self-care (01) ==
LOC: EC 16:01
DX: J06.9 Acute upper respiratory infection, unspecified (principal); I10 Essential (primary) hypertension; M06.9 Rheumatoid arthritis, unspecified; M79.7 Fibromyalgia; F32.9 Major depressive disorder, single episode, unspecified; F90.9 Attention-deficit hyperactivity disorder, unspecified type; F41.9 Anxiety disorder, unspecified
CPT/HCPCS: 36415; 71045; 80053; 82728; 83605; 83615; 83735; 83880; 84145; 84484; 85025; 85379; 85610; 85730; 86140; 87040; 87635; 93005; 99284

== ENCOUNTER 2021-01-19 11:15 | Emergency (ER) | payer BC, OTHER ==
--- NOTE | 2021-01-19 11:55 | XR ---
EXAMINATION TYPE: XR chest 2V DATE OF EXAM: 01/19/2021 COMPARISON: 01/13/2021 HISTORY: Chest pain TECHNIQUE: Frontal and lateral views of the chest are obtained. FINDINGS: There is no focal air space opacity. No evidence for pneumothorax. No pleural effusion. The cardiac silhouette size is within normal limits. The osseous structures are grossly intact. IMPRESSION: 1. No acute cardiopulmonary process.
[2021-01-19] MEDS ORDERED: ACETAMINOPHEN TAB 325 MG TAB PO STA (11:56)
--- NOTE | 2021-01-19 12:01 | ED ---
URI HPI - General Chief Complaint: Upper Respiratory Infection Stated Complaint: Chest pain,SOB Time Seen by Provider: 01/19/21 11:26 Source: patient, RN notes reviewed Mode of arrival: ambulatory Limitations: no limitations - History of Present Illness Initial Comments: This a 44-year-old female presents emergency Department chief complaint of cough congestion, loss of smell. Patient states started last few days. Patient states she was exposed multiple times with [employer]. Patient elopement. No sick for chest pain shortness of breath headache or dizziness. Patient denies any abdominal complaints including nausea vomiting diarrhea constipation. - Related Data Home Medications Medication Instructions Recorded Confirmed Acetaminophen [Tylenol Extra 1,000 mg PO Q6H PRN 06/09/20 01/13/21 Strength] Cyclobenzaprine [Flexeril] 5 mg PO BID 10/30/20 01/13/21 Dextroamphetamine/Amphetamine 20 mg PO BID 10/30/20 01/13/21 [Adderall] Warfarin [Coumadin] 5 mg PO MOWEFR@1800 10/30/20 01/13/21 Warfarin [Coumadin] 7.5 mg PO SUTUTHSA@1800 10/30/20 01/13/21 clonazePAM [KlonoPIN] 1 mg PO BID 10/30/20 01/13/21 traMADol HCl [Ultram] 50 mg PO TID PRN 10/30/20 01/13/21 Furosemide [Lasix] 40 mg PO DAILY 01/13/21 01/13/21 Meclizine [Antivert] 12.5 mg PO Q8H PRN 01/13/21 01/13/21 Ondansetron [Zofran] 4 mg PO Q6H PRN 01/13/21 01/13/21 traZODone HCL 150 mg PO HS 01/13/21 01/13/21 Previous Rx's Medication Instructions Recorded Aspirin 325 mg PO DAILY #30 tab 06/27/20 Pantoprazole [Protonix] 40 mg PO AC-BRKFST #30 tablet. 06/27/20 Allergies Allergy/AdvReac Type Severity Reaction Status Date / Time latex Allergy Rash/Hives Verified 01/19/21 11:19 Penicillins Allergy Anaphylaxis Verified 01/19/21 11:19 prochlorperazine edisylate Allergy Anaphylaxis Verified 01/19/21 11:19 [From Compazine] prochlorperazine maleate Allergy Anaphylaxis Verified 01/19/21 11:19 [From Compazine] Review of Systems ROS Statement: Those systems with pertinent positive or pertinent negative responses have been documented in the HPI. ROS Other: All systems not noted in ROS Statement are negative. Past Medical History Past Medical History: Chest Pain / Angina, Fibromyalgia, Hypertension, Memory Impairment, Rheumatoid Arthritis (RA), Syncope Additional Past Medical History / Comment(s): irritable bowel, crohn's disease, vertigo, hypoglycemia, mechanical heart valve History of Any Multi-Drug Resistant Organisms: None Reported Past Surgical History: Cardiac Valve Replacement, Cholecystectomy, Heart Catheterization Additional Past Surgical History / Comment(s): laparoscopy 1994, D&C, colonoscopies, mitral valve replacememnt in 06/14. Past Anesthesia/Blood Transfusion Reactions: No Reported Reaction Additional Past Anesthesia/Blood Transfusion Reaction / Comment(s): slow to wake up @times Past Psychological History: ADD/ADHD, Anxiety, Depression, Panic Disorder, PTSD Smoking Status: Never smoker Past Alcohol Use History: None Reported Past Drug Use History: None Reported - Past Family History Mother Family Medical History: Congestive Heart Failure (CHF) Father Additional Family Medical History / Comment(s): ETOH, unknown history General Exam Limitations: no limitations General appearance: alert, in no apparent distress Head exam: Present: atraumatic, normocephalic, normal inspection Eye exam: Present: normal appearance, PERRL, EOMI. Absent: scleral icterus, conjunctival injection, periorbital swelling ENT exam: Present: normal exam, normal oropharynx, mucous membranes moist, TM's normal bilaterally Neck exam: Present: normal inspection, full ROM. Absent: tenderness, meningismus, lymphadenopathy Respiratory exam: Present: normal lung sounds bilaterally. Absent: respiratory distress, wheezes, rales, rhonchi, stridor Cardiovascular Exam: Present: normal rhythm, tachycardia, normal heart sounds, systolic murmur (Mechanical valve). Absent: diastolic murmur, rubs, gallop, clicks Course Vital Signs 01/19/21 11:19 Temperature 99.5 F Pulse Rate 104 H Respiratory 18 Rate Blood Pressure 152/99 O2 Sat by Pulse 100 Oximetry Medical Decision Making - Medical Decision Making X-rays unremarkable patient is positive for covid19. Patient has a viral is stable and no hypoxia. Patient be discharged in stable condition. Patient does not qualify for monoclonal antibodies - Lab Data Lab Results 01/19/21 Range/Units 11:55 Coronavirus (PCR) Detected A (Not Detectd) Disposition Clinical Impression: COVID-19 Disposition: HOME SELF-CARE Condition: Stable Instructions (If sedation given, give patient instructions): Coronavirus Disease 2019 (COVID-19) Additional Instructions: Please return to the Emergency Department if symptoms worsen or any other concerns. Is patient prescribed a controlled substance at d/c from ED?: No Referrals: Carson East MD [Primary Care Provider] - 1-2 days Time of Disposition: 12:44
[2021-01-19 13:05] VITALS: BP 137/83; PULSE 82; RESP 20; TEMP 99.3
== END 2021-01-19 13:00 | disposition home or self-care (01) ==
LOC: EC 11:15
DX: U07.1 COVID-19 (principal); I10 Essential (primary) hypertension; F41.9 Anxiety disorder, unspecified; F32.9 Major depressive disorder, single episode, unspecified
CPT/HCPCS: 71046; 87635; 93005; 99285

== ENCOUNTER 2021-02-22 21:18 | Emergency (ER) | payer BC, OTHER ==
[2021-02-22 21:25] VITALS: TEMP 98.1
[2021-02-22] MEDS ORDERED: ONDANSETRON 4 MG/2 ML VIAL IVP STA (21:49)
[2021-02-22] MEDS ORDERED: SODIUM CHLORIDE 0.9% 1,000 ML IV STA (21:49)
[2021-02-22] MEDS ORDERED: diphenhydrAMINE 50 MG/ML 1 ML VIAL IVP STA (21:49)
[2021-02-22] MEDS ORDERED: methylPREDNISolone SOD SUCCI 125 MG/2 ML VIAL IV STA (21:51)
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
[2021-02-22 22:36] LABS: Basophils % (A) 1 %; Eosinophils # (A) 0.1 k/uL (0-0.7); Eosinophils % (A) 2 %; HCT 36.5 % (34.0-46.0); HGB 12.2 gm/dL (11.4-16.0); Lymphocytes # (A) 1.8 k/uL (1.0-4.8); Lymphocytes % (A) 38 %; MCH 28.3 pg (25.0-35.0); MCHC 33.6 g/dL (31.0-37.0); MCV 84.3 fL (80.0-100.0); Monocytes # (A) 0.4 k/uL (0-1.0); Monocytes % (A) 8 %; Neutrophils # (A) 2.3 k/uL (1.3-7.7); Neutrophils % (A) 49 %; Platelet Count 257 k/uL (150-450); RBC 4.32 m/uL (3.80-5.40); WBC 4.7 k/uL (3.8-10.6)
[2021-02-22 22:38] LABS: Amorphous Sediment,Urine Rare /hpf; Appearance,Urine Cloudy (Clear); Bacteria,Urine Rare /hpf; Bilirubin,Urine Negative (Negative); Blood,Urine Moderate (Negative); Color,Urine Yellow; Glucose,Urine (UA) Negative (Negative); Ketones,Urine Negative (Negative); Leukocyte Esterase,Urine Negative (Negative); Mucus,Urine Occasional /hpf; Nitrite,Urine Negative (Negative); Protein,Urine Trace (Negative); RBC,Urine 59 /hpf (0-5); Specific Gravity,Urine 1.031 (1.001-1.035); Squamous Epithelial Cell,Urine 2 /hpf (0-4); Urobilinogen,Urine <2.0 mg/dL (<2.0); WBC,Urine 2 /hpf (0-5)
--- NOTE | 2021-02-22 22:40 | XR ---
EXAMINATION TYPE: XR KUB DATE OF EXAM: 02/22/2021 COMPARISON: 11/11/2012 HISTORY: Abdominal pain TECHNIQUE: 2 views upright FINDINGS: There are clips from cholecystectomy. There is no sign of intestinal obstruction or pneumop eritoneum. Fecal pattern is normal. There is no evidence of a mass. Lung bases are clear. There are n o pathologic calcifications over the kidneys. IMPRESSION: Nonacute abdomen. No adverse change.
[2021-02-22 22:46] LABS: ALT 14 U/L (4-34); AST 24 U/L (14-36); African American GFR (CKD) >90 (>60 ml/min/1.73 sqM); Albumin 3.7 g/dL (3.5-5.0); Alkaline Phosphatase 71 U/L (38-126); Amylase 44 U/L (30-110); Anion Gap 8 mmol/L; Blood Urea Nitrogen 12 mg/dL (7-17); Carbon Dioxide 23 mmol/L (22-30); Chloride 107 mmol/L (98-107); Glucose 83 mg/dL (74-99); Lipase 39 U/L (23-300); Non-African American GFR(CKD) >90 (>60 ml/min/1.73 sqM); Sodium 138 mmol/L (137-145); Total Bilirubin 0.2 mg/dL (0.2-1.3); Total Protein 7.2 g/dL (6.3-8.2)
[2021-02-22 23:12] VITALS: BP 109/57; PULSE 78; RESP 16
[2021-02-22] MEDS ORDERED: cefTRIAXone 500 MG VIAL IM STA (23:34)
[2021-02-22] MEDS ORDERED: metroNIDAZOLE 500 MG TAB PO STA (23:34)
[2021-02-22] MEDS ORDERED: AZITHROMYCIN 250 MG TAB PO STA (23:35)
[2021-02-22] MEDS ORDERED: AZITHROMYCIN 500 MG TAB PO ONE (23:45)
== END 2021-02-23 00:08 | disposition home or self-care (01) ==
LOC: EC 21:18
DX: R51.9 Headache, unspecified (principal); M79.7 Fibromyalgia; I10 Essential (primary) hypertension; M06.9 Rheumatoid arthritis, unspecified; F32.9 Major depressive disorder, single episode, unspecified; Z90.49 Acquired absence of other specified parts of digestive tract; Z95.5 Presence of coronary angioplasty implant and graft
CPT/HCPCS: 36415; 80053; 82150; 83605; 83690; 85025; 81001; 81025; 74018; 99284; 96372; 96374; 96375 ×2; 96361 ×2; J1200; J2930; J2405; J0696

== ENCOUNTER 2021-09-09 08:09 | Emergency (ER) | payer BC, OTHER ==
[2021-09-09 08:19] VITALS: TEMP 98.7
[2021-09-09] MEDS ORDERED: MORPHINE SULFATE 4 MG/ML SYRINGE IM STA (10:29)
--- NOTE | 2021-09-09 10:52 | ED ---
General Adult HPI - General Source: patient, RN notes reviewed Mode of arrival: ambulatory Limitations: no limitations <Marvin Landis - Last Filed: 09/09/21 15:24> <Mian Ha - Last Filed: 09/09/21 20:35> - General Chief complaint: Fall Stated complaint: Fell on left side on coumadin Time Seen by Provider: 09/09/21 09:56 - History of Present Illness Initial comments: 46-year-old female with a past medical history of fibromyalgia, hypertension, DC, mechanical heart valve on Coumadin presents to the emergency room for fall. Patient fell down about 9 stairs earlier today. Patient is complaining of left elbow pain and left buttock pain. States she can ambulate without difficulty. She did not hit her head or lose consciousness. She does take Coumadin.Patient has no other complaints at this time including shortness of breath, chest pain, abdominal pain, nausea or vomiting, headache, or visual changes. (Marvin Landis) - Related Data Home Medications Medication Instructions Recorded Confirmed Acetaminophen [Tylenol Extra 1,000 mg PO Q6H PRN 06/09/20 09/09/21 Strength] Cyclobenzaprine [Flexeril] 5 mg PO BID 10/30/20 09/09/21 Dextroamphetamine/Amphetamine 20 mg PO BID 10/30/20 09/09/21 [Adderall] Warfarin [Coumadin] 5 mg PO MOWEFR@1800 10/30/20 09/09/21 Warfarin [Coumadin] 7.5 mg PO SUTUTHSA@1800 10/30/20 09/09/21 clonazePAM [KlonoPIN] 1 mg PO BID 10/30/20 09/09/21 traMADol HCl [Ultram] 50 mg PO TID PRN 10/30/20 09/09/21 traZODone HCL 150 mg PO HS 01/13/21 09/09/21 Butalb/APAP/Caff 50-325-40Mg 1 tab PO Q6H PRN 02/22/21 09/09/21 [Fioricet 50-325-40] Ibuprofen [Motrin Ib] 800 mg PO Q8H PRN 09/09/21 09/09/21 Previous Rx's Medication Instructions Recorded Pantoprazole [Protonix] 40 mg PO AC-ELVAKFST #30 tablet. 06/27/20 Allergies Allergy/AdvReac Type Severity Reaction Status Date / Time latex Allergy Rash/Hives Verified 09/09/21 10:45 Penicillins Allergy Anaphylaxis Verified 09/09/21 10:45 prochlorperazine edisylate Allergy Anaphylaxis Verified 09/09/21 10:45 [From Compazine] prochlorperazine maleate Allergy Anaphylaxis Verified 09/09/21 10:45 [From Compazine] Review of Systems ROS Other: All systems not noted in ROS Statement are negative. <Marvin Landis - Last Filed: 09/09/21 15:24> ROS Other: All systems not noted in ROS Statement are negative. <Mian Ha - Last Filed: 09/09/21 20:35> ROS Statement: Those systems with pertinent positive or pertinent negative responses have been documented in the HPI. Past Medical History Past Medical History: Chest Pain / Angina, Fibromyalgia, Hypertension, Memory Impairment, Rheumatoid Arthritis (RA), Syncope Additional Past Medical History / Comment(s): irritable bowel, crohn's disease, vertigo, hypoglycemia, mechanical heart valve History of Any Multi-Drug Resistant Organisms: None Reported Past Surgical History: Cardiac Valve Replacement, Cholecystectomy, Heart Catheterization Additional Past Surgical History / Comment(s): laparoscopy 1994, D&C, colonoscopies, mitral valve replacememnt in 06/14. Past Anesthesia/Blood Transfusion Reactions: No Reported Reaction Additional Past Anesthesia/Blood Transfusion Reaction / Comment(s): slow to wake up @times Past Psychological History: ADD/ADHD, Anxiety, Depression, Panic Disorder, PTSD Smoking Status: Never smoker Past Alcohol Use History: None Reported Past Drug Use History: None Reported - Past Family History Mother Family Medical History: Congestive Heart Failure (CHF) Father Additional Family Medical History / Comment(s): ETOH, unknown history <Marvin Landis P - Last Filed: 09/09/21 15:24> General Exam Limitations: no limitations General appearance: alert, in no apparent distress Head exam: Present: atraumatic Eye exam: Present: normal appearance, PERRL, EOMI. Absent: scleral icterus, conjunctival injection ENT exam: Present: normal exam, mucous membranes moist Neck exam: Present: normal inspection, full ROM. Absent: tenderness Respiratory exam: Present: normal lung sounds bilaterally. Absent: respiratory distress, wheezes Cardiovascular Exam: Present: regular rate, normal rhythm, normal heart sounds GI/Abdominal exam: Present: soft, normal bowel sounds. Absent: distended, tenderness <Marvin Landis - Last Filed: 09/09/21 15:24> - General Exam Comments Initial Comments: Arm: Patient has full range of motion of the left elbow. Generalized tenderness. No edema ecchymosis or external signs of trauma. Radial pulse 2+. Leg: Full range motion of the knee and hip. Patient does have some sacral tenderness into the tailbone. No lumbar spine tenderness. DP pulse 2+ (Marvin Landis) Course <Marvin Landis - Last Filed: 09/09/21 15:24> <Mian Ha - Last Filed: 09/09/21 20:35> Vital Signs 09/09/21 09/09/21 09/09/21 08:10 12:30 14:35 Temperature 98.7 F Pulse Rate 89 79 78 Respiratory 18 20 18 Rate Blood Pressure 137/81 129/71 136/82 O2 Sat by Pulse 100 100 100 Oximetry - Reevaluation(s) Reevaluation #2: 09/09/21 14:14 Patient was registered in the ER at 8:09 AM. She was brought back to room 13 at 9:44 AM. I signed up for her at 956 and saw her here 1020. CT was entered at 1029. She was not taken to CT until 1136 as she needed a nurse to take her to hold c-spine. I was not notified about CT report showing a possible hemorrhage, and until I read the report around 1245 or so was unaware. At that point it was decided to reconstruct the CAT scan after consulting with the radiologist and CAT scan techs. With reconstucted thin sliced model, addendum showed less likely to be a bleed. Dr. Buckner was paged at [phone]. at 215 pm discussed case w ith Dr Burrows about getting MRI in our hospital versus attempting to transfer for MRI. Given difficulty with transferring patient he did agree with trying to get an MRI here first. (Marvin Landis) Reevaluation #3: 09/09/21 14:25 Case discussed with technical systems architect. They can take her at 4:30. [id number] filling out MRI sheet. (Marvin Landis) Reevaluation #4: 09/09/21 20:33 The patient was endorsed me at our shift change pending MRI of the brain. MRI was performed and showed no evidence of bleeding. I did have a long discussion with patient regarding the findings she does have some pain in the left side of her body she slid down stairs no clinical evidence for fractures she will be discharged with appropriate follow-up with her doctor (Mian Ha) Medical Decision Making <Marvin Landis - Last Filed: 09/09/21 15:24> - Medical Decision Making CT cervical spine shows no acute fracture or dislocation. CT brain cannot exclude a petechial hemorrhage within the posterior fossa. No fracture seen in the left elbow pelvis or sacrum. Please see course of care. CT was repeated however although bleed was unlikely still able to completely exclude. Therefore MRI is ordered. case signed out to Dr Ha [id number] pending MRI results. (Marvin Landis) Disposition <Marvin Landis - Last Filed: 09/09/21 15:24> Is patient prescribed a controlled substance at d/c from ED?: No <Mian Ha - Last Filed: 09/09/21 20:35> Clinical Impression: Fall, Multiple contusions, Feared condition not demonstrated Disposition: HOME SELF-CARE Condition: Good Instructions (If sedation given, give patient instructions): Fall Prevention (ED), Contusion in Adults (ED) Additional Instructions: Ice 24-40 hours followed by warm compresses, Tylenol for pain Referrals: Carson East MD [Primary Care Provider] - 1-2 days
--- NOTE | 2021-09-09 12:01 | CT ---
EXAMINATION TYPE: CT brain cspine wo con DATE OF EXAM: 09/09/2021 COMPARISON: None HISTORY: Fall, hit back of head CT DLP: 1649.7 mGycm Automated exposure control for dose reduction was used. TECHNIQUE: CT scan of the head and cervical spine are performed without contrast. FINDINGS: Ventricular system is midline without evidence of displacement. Assessment of posterior f samaria limited due to artifact. Remaining portions demonstrate no sizable areas of abnormal attenuation . There is a tiny focal area of abnormal hyperdensity measuring 1 2 mm axial image 19 and sagittal im age 32 most likely related to lymph nodes. This is also noted on coronal image 14. Assessment spinal canal limited due to resolution and artifact. There is hypertrophic changes at mult iple levels. Prevertebral soft tissue appears within normal limits. The C1-C2 articulation is unrema rkable. Subpleural nodules are seen in the upper lungs measuring less than 5 mm and too small to lalo racterize. Carotid artery atherosclerotic changes IMPRESSION: 1. There is no acute fracture or dislocation evident in the cervical spine. 2. Cannot exclude a petechial hemorrhage within the posterior fossa. SPECT and may represent a tiny c alcification. Recommend repeat head CT with thin section images through the posterior fossa..
--- NOTE | 2021-09-09 12:18 | XR ---
EXAM: XR Elbow complete 3 views LT, XR 3 views sacrum coccyx, XR pelvis AP view DATE OF EXAM: 09/09/2021 COMPARISON: NONE HISTORY: 46-year-old female pain after fall FINDINGS: Left elbow: Some bony spurring of both medial and lateral epicondyles and also at the ulnotrochlear joint. No elb ow joint effusion. No acute fracture, subluxation, or dislocation. Pelvis SI joints appear symmetric and intact as is the pubic symphysis. There is degenerative spurring at jaclyn th hips. Several subchondral cystic change along the superolateral acetabula. No acute fracture, subl uxation, or dislocation. Sacrum and coccyx: Small delineation to the arcuate lines of the sacrum. Mild degenerative disc disease L5-S1. Facet art hropathy mid to lower lumbar spine. No displaced or angulated fracture. IMPRESSION: 1. Left elbow: No acute osseous abnormality seen. 2. Pelvis: Mild bilateral hip OA. No acute osseous abnormality seen. 3. Sacrum and coccyx: No displaced or angulated tailbone fracture identified.
--- NOTE | 2021-09-09 19:53 | MR ---
EXAMINATION TYPE: MR brain wo con DATE OF EXAM: 09/09/2021 COMPARISON: None HISTORY: Fall, pt is on coumadin, evaluate for bleed. Multiplanar multiecho imaging of the brain without contrast. Ventricles have normal size. There is no mass effect nor midline shift. There is no evidence of intra cranial hemorrhage. On the FLAIR images there are multiple foci of increased signal which measure up to 5 mm in the white matter both cerebral hemispheres. The brainstem is intact. Corpus callosum is in tact. Sella turcica appears normal. There is no evidence of a cortical infarct. There is no evidence of orbital mass. IMPRESSION: Multiple scattered white matter high signal foci. Total number is approximately 15 and these are nons pecific. This could relate to microvascular ischemia or demyelinating disease. No evidence of traumat ic injury. No evidence of cortical infarct.
[2021-09-09] MEDS ORDERED: ACETAMINOPHEN TAB 500 MG TAB PO STA (20:32)
[2021-09-09 21:11] VITALS: BP 132/77; PULSE 77; RESP 17
== END 2021-09-09 21:10 | disposition home or self-care (01) ==
LOC: EC 08:09
DX: T14.8XXA Other injury of unspecified body region, initial encounter (principal); I10 Essential (primary) hypertension; F41.9 Anxiety disorder, unspecified; F90.9 Attention-deficit hyperactivity disorder, unspecified type; I25.2 Old myocardial infarction; M06.9 Rheumatoid arthritis, unspecified; M79.7 Fibromyalgia; F32.9 Major depressive disorder, single episode, unspecified; Z79.01 Long term (current) use of anticoagulants; Z79.1 Long term (current) use of non-steroidal anti-inflammatories (NSAID); Z79.899 Other long term (current) drug therapy; Z88.0 Allergy status to penicillin; Z90.49 Acquired absence of other specified parts of digestive tract; Z95.2 Presence of prosthetic heart valve; Z88.8 Allergy status to other drugs, medicaments and biological substances; Z82.49 Family history of ischemic heart disease and other diseases of the circulatory system; W10.9XXA Fall (on) (from) unspecified stairs and steps, initial encounter
CPT/HCPCS: 72170; 72220; 73080; 72125; 70450; 70551; 99284; 96372; J2270

== ENCOUNTER 2021-10-31 10:50 | Emergency (ER) | payer OTHER ==
[2021-10-31 10:56] VITALS: TEMP 98.7
--- NOTE | 2021-10-31 12:41 | ED ---
Dizziness HPI - General Chief Complaint: Dizziness Stated Complaint: Dizziness Time Seen by Provider: 10/31/21 12:15 Source: EMS Mode of arrival: EMS Limitations: no limitations - History of Present Illness Initial Comments: This is a pleasant 46-year-old female with a history of probable multiple sclerosis. She presents to the emergency today with recurrent dizziness. Patient states this occurred at work after 10 AM. Patient states she had a profound episode of vertigo which cause nausea. An ambulance was called. She was given antiemetics in the ambulance and axis state she feels much better at this time. Patient essentially asymptomatic at this time. Patient states she had an episode of vertigo on Thursday which was very similar. Patient states she's had about 25 episodes of vertigo over the past 2 years. Patient has had recent appointments with neurology and had an MRI of her brain in August which showed multiple lesions consistent with multiple sclerosis. Patient actually had an appointment today at [facility] to a multiple sclerosis specialist. Patient states that she previously has had meclizine for her vertigo episodes which has been quite effective. However she was out of this medication. Patient denied any other symptomology. There was no vision change otherwise. No hearing change. No slurred speech. No focal weakness. No arm or leg weakness. No chest pain or shortness of breath. No neck pain. No abdominal pain. Nausea and vomiting secondary to vertigo. Positive bowel much urination. No fever or chills. - Related Data Home Medications Medication Instructions Recorded Confirmed Acetaminophen [Tylenol Extra 1,000 mg PO Q6H PRN 06/09/20 10/31/21 Strength] Cyclobenzaprine [Flexeril] 5 mg PO BID PRN 10/30/20 10/31/21 Dextroamphetamine/Amphetamine 20 mg PO BID 10/30/20 10/31/21 [Adderall] Warfarin [Coumadin] 5 mg PO MOWEFR@1800 10/30/20 10/31/21 Warfarin [Coumadin] 7.5 mg PO SUTUTHSA@1800 10/30/20 10/31/21 clonazePAM [KlonoPIN] 1 mg PO BID 10/30/20 10/31/21 traMADol HCl [Ultram] 50 mg PO TID PRN 10/30/20 10/31/21 traZODone HCL 150 mg PO HS 01/13/21 10/31/21 Ibuprofen [Motrin Ib] 800 mg PO Q8H PRN 09/09/21 10/31/21 Cranberry Fruit Extract [Cranberry] 500 mg PO DAILY 10/31/21 10/31/21 Previous Rx's Medication Instructions Recorded Pantoprazole [Protonix] 40 mg PO AC-BRKFST #30 tablet. 06/27/20 Meclizine [Antivert] 25 mg PO TID PRN #20 tab 10/31/21 Allergies Allergy/AdvReac Type Severity Reaction Status Date / Time latex Allergy Rash/Hives Verified 10/31/21 14:08 Penicillins Allergy Anaphylaxis Verified 10/31/21 14:08 prochlorperazine edisylate Allergy Anaphylaxis Verified 10/31/21 14:08 [From Compazine] prochlorperazine maleate Allergy Anaphylaxis Verified 10/31/21 14:08 [From Compazine] sulfamethoxazole Allergy Unknown Verified 10/31/21 14:08 [From Bactrim] trimethoprim [From Bactrim] Allergy Unknown Verified 10/31/21 14:08 Review of Systems ROS Statement: Those systems with pertinent positive or pertinent negative responses have been documented in the HPI. ROS Other: All systems not noted in ROS Statement are negative. Past Medical History Past Medical History: Chest Pain / Angina, Fibromyalgia, Hypertension, Memory Impairment, Rheumatoid Arthritis (RA), Seizure Disorder, Syncope Additional Past Medical History / Comment(s): irritable bowel, crohn's disease, vertigo, hypoglycemia, mechanical heart valve History of Any Multi-Drug Resistant Organisms: None Reported Past Surgical History: Cardiac Valve Replacement, Cholecystectomy, Heart Catheterization Additional Past Surgical History / Comment(s): laparoscopy 1994, D&C, colonoscopies, mitral valve replacememnt in 06/14. Past Anesthesia/Blood Transfusion Reactions: No Reported Reaction Additional Past Anesthesia/Blood Transfusion Reaction / Comment(s): slow to wake up @times Past Psychological History: ADD/ADHD, Anxiety, Depression, Panic Disorder, PTSD Smoking Status: Never smoker Past Alcohol Use History: None Reported Past Drug Use History: None Reported - Past Family History Mother Family Medical History: Congestive Heart Failure (CHF) Father Additional Family Medical History / Comment(s): ETOH, unknown history General Exam - General Exam Comments Initial Comments: Patient in no acute distress at the time I'm seeing her. Cranial nerves II through XII are intact. No focal neurologic deficits. Limitations: no limitations General appearance: alert, in no apparent distress Head exam: Present: atraumatic, normocephalic, normal inspection Eye exam: Present: normal appearance, PERRL, EOMI. Absent: scleral icterus, conjunctival injection, periorbital swelling Pupils: Present: normal accommodation ENT exam: Present: normal exam, normal oropharynx, mucous membranes moist, TM's normal bilaterally, normal external ear exam Neck exam: Present: normal inspection. Absent: tenderness, meningismus, lymphadenopathy Respiratory exam: Present: normal lung sounds bilaterally. Absent: respiratory distress, wheezes, rales, rhonchi, stridor Cardiovascular Exam: Present: regular rate, normal rhythm, normal heart sounds. Absent: systolic murmur, diastolic murmur, rubs, gallop, clicks GI/Abdominal exam: Present: soft, normal bowel sounds. Absent: distended, tende rness, guarding, rebound, rigid Extremities exam: Present: normal inspection, full ROM, normal capillary refill. Absent: tenderness, pedal edema, joint swelling, calf tenderness Back exam: Present: normal inspection Neurological exam: Present: alert, oriented X3, CN II-XII intact, normal gait. Absent: motor sensory deficit Expanded Patient oriented to: Present: person, place, time Speech: Present: fluid speech Ataxia: Absent: yes Cerebellar function: Finger to Nose: Normal, Heel to Solis: Normal, Romberg: Normal Sensory exam: Upper Extremity Light Touch: Normal, Lower Extremity Light Touch: Normal Motor strength exam: RUE: 5, LUE: 5, RLE: 5, LLE: 5 Eye Response: (4) open spontaneously Motor Response: (6) obeys commands Verbal Response: (5) oriented Psychiatric exam: Present: normal affect, normal mood Skin exam: Present: warm, dry, intact, normal color. Absent: rash Course Vital Signs 10/31/21 10/31/21 10/31/21 10:51 11:54 12:00 Temperature 98.7 F Pulse Rate 86 87 79 Respiratory 18 15 16 Rate Blood Pressure 134/98 134/98 127/89 O2 Sat by Pulse 99 98 99 Oximetry 10/31/21 13:00 Temperature Pulse Rate 81 Respiratory 17 Rate Blood Pressure 119/79 O2 Sat by Pulse 98 Oximetry - Reevaluation(s) Reevaluation #1: 10/31/21 14:51 Patient reevaluated prior to discharge and is again, asymptomatic, neurologically intact, no distress. EKG Findings - EKG Comments: EKG Findings:: EKG done at 11:51 AM and read by the ED attending physician reveals normal sinus rhythm with rate of 77. Normal intervals. Normal axis. Normal QRS morphology. No acute ST or T-wave changes. Medical Decision Making - Medical Decision Making patient presents with symptoms most consistent with recurrent vertigo. Patient has had this multiple times over the past 2 years has had an extensive workup recently with neurology. Patient had an MRI in August which showed multiple lesions consistent with multiple sclerosis. Had appointment today at [facility] with an MS specialist. Patient states of vertigo lasted about 30 minutes today and is now back to baseline. Patient is asymptomatic at time seeing her. Patient had an episode on Thursday which was similar. Patient requesting meclizine. We'll order a general cardiac workup to include troponin, EKG, magnesium, electrolytes just to ensure those look okay. Plan for discharge. Case discussed in detail with Dr. Ha. We'll have the patient follow-up with her neurologist today. Discussed EKG findings. All questions answered. Follow-up with your regular physician as directed. Return to the ER immediately if any symptoms worsen, new symptoms arise, or any other problems develop. Supervising physician, Dr. Ha - Lab Data Result diagrams: 10/31/21 12:42 10/31/21 12:42 Lab Results 10/31/21 10/31/21 10/31/21 Range/Units 12:42 12:42 12:42 WBC 6.4 (3.8-10.6) k/uL RBC 4.43 (3.80-5.40) m/uL Hgb 12.8 (11.4-16.0) gm/dL Hct 39.2 (34.0-46.0) % MCV 88.5 (80.0-100.0) fL MCH 28.9 (25.0-35.0) pg MCHC 32.7 (31.0-37.0) g/dL RDW 14.6 (11.5-15.5) % Plt Count 263 (150-450) k/uL MPV 7.9 Neutrophils % 59 % Lymphocytes % 31 % Monocytes % 7 % Eosinophils % 2 % Basophils % 1 % Neutrophils # 3.7 (1.3-7.7) k/uL Lymphocytes # 2.0 (1.0-4.8) k/uL Monocytes # 0.4 (0-1.0) k/uL Eosinophils # 0.1 (0-0.7) k/uL Basophils # 0.1 (0-0.2) k/uL PT (9.0-12.0) sec INR (<1.2) Sodium 137 (137-145) mmol/L Potassium 3.8 (3.5-5.1) mmol/L Chloride 108 H (98-107) mmol/L Carbon Dioxide 21 L (22-30) mmol/L Anion Gap 8 mmol/L BUN 10 (7-17) mg/dL Creatinine 0.59 (0.52-1.04) mg/dL Est GFR (CKD-EPI)AfAm >90 (>60 ml/min/1.73 sqM) Est GFR (CKD-EPI)NonAf >90 (>60 ml/min/1.73 sqM) Glucose 86 (74-99) mg/dL Calcium 8.5 (8.4-10.2) mg/dL Magnesium 1.7 (1.6-2.3) mg/dL Troponin I 0.016 (0.000-0.034) ng/mL 10/31/21 Range/Units 14:20 WBC (3.8-10.6) k/uL RBC (3.80-5.40) m/uL Hgb (11.4-16.0) gm/dL Hct (34.0-46.0) % MCV (80.0-100.0) fL MCH (25.0-35.0) pg MCHC (31.0-37.0) g/dL RDW (11.5-15.5) % Plt Count (150-450) k/uL MPV Neutrophils % % Lymphocytes % % Monocytes % % Eosinophils % % Basophils % % Neutrophils # (1.3-7.7) k/uL Lymphocytes # (1.0-4.8) k/uL Monocytes # (0-1.0) k/uL Eosinophils # (0-0.7) k/uL Basophils # (0-0.2) k/uL PT 33.8 H (9.0-12.0) sec INR 3.5 H (<1.2) Sodium (137-145) mmol/L Potassium (3.5-5.1) mmol/L Chloride (98-107) mmol/L Carbon Dioxide (22-30) mmol/L Anion Gap mmol/L BUN (7-17) mg/dL Creatinine (0.52-1.04) mg/dL Est GFR (CKD-EPI)AfAm (>60 ml/min/1.73 sqM) Est GFR (CKD-EPI)NonAf (>60 ml/min/1.73 sqM) Glucose (74-99) mg/dL Calcium (8.4-10.2) mg/dL Magnesium (1.6-2.3) mg/dL Troponin I (0.000-0.034) ng/mL Disposition Clinical Impression: Vertigo Disposition: HOME SELF-CARE Condition: Good Instructions (If sedation given, give patient instructions): Dizziness (ED) Additional Instructions: Call Dr. Hatch for follow-up appointment. Continue on with your specialty appointments as planned. Follow-up with your regular physician as directed. Return to the ER immediately if any symptoms worsen, new symptoms arise, or any other problems develop. Your INR was 3.5, this is the high end of normal for patient with a heart valve. Ensure that you monitor this with your regular physician. Prescriptions: Meclizine [Antivert] 25 mg PO TID PRN #20 tab PRN Reason: dizziness Is patient prescribed a controlled substance at d/c from ED?: No Referrals: Carson East MD [Primary Care Provider] - 1-2 days Time of Disposition: 14:51
[2021-10-31 13:02] LABS: Basophils # (A) 0.1 k/uL (0-0.2); Basophils % (A) 1 %; Eosinophils # (A) 0.1 k/uL (0-0.7); Eosinophils % (A) 2 %; HCT 39.2 % (34.0-46.0); HGB 12.8 gm/dL (11.4-16.0); Lymphocytes % (A) 31 %; MCH 28.9 pg (25.0-35.0); MCHC 32.7 g/dL (31.0-37.0); MCV 88.5 fL (80.0-100.0); Mean Platelet Volume 7.9; Monocytes # (A) 0.4 k/uL (0-1.0); Monocytes % (A) 7 %; Neutrophils # (A) 3.7 k/uL (1.3-7.7); Neutrophils % (A) 59 %; Platelet Count 263 k/uL (150-450); RBC 4.43 m/uL (3.80-5.40); RDW 14.6 % (11.5-15.5); WBC 6.4 k/uL (3.8-10.6)
[2021-10-31 13:12] LABS: African American GFR (CKD) >90 (>60 ml/min/1.73 sqM); Anion Gap 8 mmol/L; Blood Urea Nitrogen 10 mg/dL (7-17); Calcium 8.5 mg/dL (8.4-10.2); Carbon Dioxide 21 mmol/L (22-30); Chloride 108 mmol/L (98-107); Glucose 86 mg/dL (74-99); Magnesium 1.7 mg/dL (1.6-2.3); Non-African American GFR(CKD) >90 (>60 ml/min/1.73 sqM); Potassium 3.8 mmol/L (3.5-5.1); Sodium 137 mmol/L (137-145)
[2021-10-31 14:32] LABS: INR 3.5 (<1.2); Prothrombin Time 33.8 sec (9.0-12.0)
[2021-10-31 15:27] VITALS: BP 107/66; PULSE 80; RESP 16
== END 2021-10-31 15:27 | disposition home or self-care (01) ==
LOC: EC 10:50
DX: R42 Dizziness and giddiness (principal); M79.7 Fibromyalgia; I10 Essential (primary) hypertension; F90.9 Attention-deficit hyperactivity disorder, unspecified type; F41.9 Anxiety disorder, unspecified; F32.A Depression, unspecified; F43.12 Post-traumatic stress disorder, chronic; Z79.01 Long term (current) use of anticoagulants; Z91.040 Latex allergy status; Z88.0 Allergy status to penicillin; Z88.1 Allergy status to other antibiotic agents; Z88.2 Allergy status to sulfonamides; Z90.49 Acquired absence of other specified parts of digestive tract
CPT/HCPCS: 36415; 80048; 83735; 84484; 85025; 85610; 99284

== ENCOUNTER → 2022-01-14 | Outpatient (CLI) | payer OTHER ==
[2022-01-14 23:43] LABS: INR 2.4 (0.90-1.11)
== END | disposition home or self-care (01) ==
LOC: LABWHC1 15:41
PROVIDERS: ATTEND Family Medicine
DX: Z51.81 Encounter for therapeutic drug level monitoring (principal)
CPT/HCPCS: 36415; 85610

== ENCOUNTER 2022-07-18 17:07 | Emergency (ER) | payer OTHER ==
[2022-07-18 17:17] VITALS: BP 156/103; PULSE 80; RESP 18; TEMP 98.6
[2022-07-18 17:21] LABS: Glucose,Whole Blood 94 mg/dL (70-110)
== END 2022-07-18 19:24 | disposition left against medical advice (07) ==
LOC: EC 17:07
DX: Z53.29 Procedure and treatment not carried out because of patient's decision for other reasons (principal)
CPT/HCPCS: 36415; 99499

== ENCOUNTER 2022-10-14 06:15 | Emergency (ER) | payer OTHER ==
[2022-10-14 06:27] VITALS: TEMP 98.1
--- NOTE | 2022-10-14 06:51 | ED ---
Female Urogenital HPI - General Chief complaint: Vaginal Bleeding Stated complaint: vaginal bleeding Time Seen by Provider: 10/14/22 06:17 Source: patient, EMS, RN notes reviewed Mode of arrival: EMS Limitations: no limitations - History of Present Illness Initial comments: 47-year-old female returns emergency department via EMS chief complaint of vaginal bleeding. Patient states that she and her normal mental cycle 2 days ago states that she started bleeding again states that she passed a few clots there is only using one pad or tampon per hour at this point. Patient states she is on Coumadin for mechanical valve replacement. Patient states she has not had checked in a long period of time. Patient states that she has some bruising on her abdomen and which she is not sure whether this is from. Patient denies any chest pain palpitations shortness of breath fevers or chills and eyes any chance . Denies any medication changes. She has not follow-up with [facility] in several years. - Related Data Home Medications Medication Instructions Recorded Confirmed Acetaminophen [Tylenol Extra 1,000 mg PO Q6H PRN 06/09/20 11/21/21 Strength] Cyclobenzaprine [Flexeril] 5 mg PO BID PRN 10/30/20 11/21/21 Dextroamphetamine/Amphetamine 20 mg PO BID 10/30/20 11/21/21 [Adderall] Warfarin [Coumadin] 5 mg PO MOWEFR@1800 10/30/20 11/21/21 Warfarin [Coumadin] 7.5 mg PO SUTUTHSA@1800 10/30/20 11/21/21 clonazePAM [KlonoPIN] 1 mg PO BID 10/30/20 11/21/21 traMADol HCl [Ultram] 50 mg PO TID PRN 10/30/20 11/21/21 traZODone HCL 150 mg PO HS 01/13/21 11/21/21 Ibuprofen [Motrin Ib] 800 mg PO Q8H PRN 09/09/21 11/21/21 Cranberry Fruit Extract [Cranberry] 500 mg PO DAILY 10/31/21 11/21/21 Ciprofloxacin HCl 500 mg PO BID 11/21/21 11/21/21 Furosemide [Lasix] 40 mg PO DAILY 11/21/21 11/21/21 lisinopriL [Zestril] 20 mg PO DAILY 11/21/21 11/21/21 Previous Rx's Medication Instructions Recorded Pantoprazole [Protonix] 40 mg PO FABIANO-ELVAKFSEmery #30 tablet. 06/27/20 Meclizine [Antivert] 25 mg PO TID PRN #20 tab 10/31/21 Allergies Allergy/AdvReac Type Severity Reaction Status Date / Time latex Allergy Rash/Hives Verified 07/18/22 17:17 Penicillins Allergy Anaphylaxis Verified 07/18/22 17:17 prochlorperazine edisylate Allergy Anaphylaxis Verified 07/18/22 17:17 [From Compazine] prochlorperazine maleate Allergy Anaphylaxis Verified 07/18/22 17:17 [From Compazine] sulfamethoxazole Allergy Unknown Verified 07/18/22 17:17 [From Bactrim] trimethoprim [From Bactrim] Allergy Unknown Verified 07/18/22 17:17 Review of Systems ROS Statement: Those systems with pertinent positive or pertinent negative responses have been documented in the HPI. ROS Other: All systems not noted in ROS Statement are negative. Past Medical History Past Medical History: Chest Pain / Angina, Fibromyalgia, Hypertension, Memory Impairment, Rheumatoid Arthritis (RA), Seizure Disorder, Syncope Additional Past Medical History / Comment(s): irritable bowel, crohn's disease, vertigo, hypoglycemia, mechanical heart valve History of Any Multi-Drug Resistant Organisms: None Reported Past Surgical History: Cardiac Valve Replacement, Cholecystectomy, Heart Catheterization Additional Past Surgical History / Comment(s): laparoscopy 1994, D&C, colonoscopies, mitral valve replacememnt in 06/14. Past Anesthesia/Blood Transfusion Reactions: No Reported Reaction Additional Past Anesthesia/Blood Transfusion Reaction / Comment(s): slow to wake up @times Past Psychological History: ADD/ADHD, Anxiety, Depression, Panic Disorder, PTSD Smoking Status: Never smoker Past Alcohol Use History: None Reported Past Drug Use History: None Reported - Past Family History Mother Family Medical History: Congestive Heart Failure (CHF) Father Additional Family Medical History / Comment(s): ETOH, unknown history General Exam Limitations: no limitations General appearance: alert, in no apparent distress Head exam: Present: atraumatic, normocephalic, normal inspection Neck exam: Present: normal inspection, full ROM. Absent: tenderness, meningismus, lymphadenopathy Respiratory exam: Present: normal lung sounds bilaterally. Absent: respiratory distress, wheezes, rales, rhonchi, stridor Cardiovascular Exam: Present: regular rate, normal rhythm, normal heart sounds. Absent: systolic murmur, diastolic murmur, rubs, gallop, clicks GI/Abdominal exam: Present: soft, normal bowel sounds, other (Small amount of ecchymosis on right-sided abdomen.). Absent: distended, tenderness, guarding, rebound, rigid Back exam: Absent: CVA tenderness (R), CVA tenderness (L) Neurological exam: Present: alert, oriented X3 Course Vital Signs 10/14/22 06:19 Temperature 98.1 F Pulse Rate 90 Respiratory 16 Rate Blood Pressure 156/119 O2 Sat by Pulse 99 Oximetry Medical Decision Making - Medical Decision Making 47-year-old female presented for vaginal bleeding. Patient has dysfunctional uterine bleeding. Patient is on Coumadin INR 3.1 patient's hemoglobin is stable 13.6 patient does have thickened endometrial stripe may be causing some dysfunctional bleeding, patient needs a follow-up as she has not had as smear or [facility] evaluation she may require D&C or hysterectomy if symptoms persist. Patient instructed return for increasing bleeding, symptomatic bleeding or any other complaints. - Lab Data Result diagrams: 10/14/22 07:09 10/14/22 07:09 Lab Results 10/14/22 10/14/22 10/14/22 Range/Units 06:40 06:40 06:40 WBC (3.8-10.6) k/uL RBC (3.80-5.40) m/uL Hgb (11.4-16.0) gm/dL Hct (34.0-46.0) % MCV (80.0-100.0) fL MCH (25.0-35.0) pg MCHC (31.0-37.0) g/dL RDW (11.5-15.5) % Plt Count (150-450) k/uL MPV Neutrophils % % Lymphocytes % % Monocytes % % Eosinophils % % Basophils % % Neutrophils # (1.3-7.7) k/uL Lymphocytes # (1.0-4.8) k/uL Monocytes # (0-1.0) k/uL Eosinophils # (0-0.7) k/uL Basophils # (0-0.2) k/uL PT (9.0-12.0) sec INR (<1.2) APTT (22.0-30.0) sec Sodium (137-145) mmol/L Potassium (3.5-5.1) mmol/L Chloride (98-107) mmol/L Carbon Dioxide (22-30) mmol/L Anion Gap mmol/L BUN (7-17) mg/dL Creatinine (0.52-1.04) mg/dL Est GFR (CKD-EPI)AfAm (>60 ml/min/1.73 sqM) Est GFR (CKD-EPI)NonAf (>60 ml/min/1.73 sqM) Glucose (74-99) mg/dL Calcium (8.4-10.2) mg/dL Total Bilirubin (0.2-1.3) mg/dL AST (14-36) U/L ALT (4-34) U/L Alkaline Phosphatase (38-126) U/L Total Protein (6.3-8.2) g/dL Albumin (3.5-5.0) g/dL Urine Color Yellow Urine Appearance Clear (Clear) Urine pH 6.0 (5.0-8.0) Ur Specific Girdler 1.024 (1.001-1.035) Urine Protein Trace H (Negative) Urine Glucose (UA) Negative (Negative) Urine Ketones 1+ H (Negative) Urine Blood Large H (Negative) Urine Nitrite Negative (Negative) Urine Bilirubin Negative (Negative) Urine Urobilinogen 2.0 (<2.0) mg/dL Ur Leukocyte Esterase Negative (Negative) Urine RBC 1 (0-5) /hpf Urine WBC 3 (0-5) /hpf Ur Squamous Epith Cells 1 (0-4) /hpf Urine Bacteria Rare H (None) /hpf Hyaline Casts 4 H (0-2) /lpf Urine Mucus Moderate H (None) /hpf Urine HCG, Qual Not Detected (Not Detectd) Blood Type A Positive Blood Type Recheck A Pos Bld Type Recheck Status No Antibody Screen NEGATIVE Spec Expiration Date 10/17/2022 - 233910/14/22 10/14/22 10/14/22 Range/Units 07:09 07:09 07:09 WBC 10.9 H (3.8-10.6) k/uL RBC 4.45 (3.80-5.40) m/uL Hgb 13.6 (11.4-16.0) gm/dL Hct 38.5 (34.0-46.0) % MCV 86.6 (80.0-100.0) fL MCH 30.5 (25.0-35.0) pg MCHC 35.2 (31.0-37.0) g/dL RDW 13.3 (11.5-15.5) % Plt Count 355 (150-450) k/uL MPV 7.5 Neutrophils % 62 % Lymphocytes % 29 % Monocytes % 6 % Eosinophils % 1 % Basophils % 1 % Neutrophils # 6.7 (1.3-7.7) k/uL Lymphocytes # 3.2 (1.0-4.8) k/uL Monocytes # 0.7 (0-1.0) k/uL Eosinophils # 0.1 (0-0.7) k/uL Basophils # 0.1 (0-0.2) k/uL PT 30.0 H (9.0-12.0) sec INR 3.1 H (<1.2) APTT 42.0 H (22.0-30.0) sec Sodium 138 (137-145) mmol/L Potassium 3.3 L (3.5-5.1) mmol/L Chloride 105 (98-107) mmol/L Carbon Dioxide 26 (22-30) mmol/L Anion Gap 7 mmol/L BUN 9 (7-17) mg/dL Creatinine 0.60 (0.52-1.04) mg/dL Est GFR (CKD-EPI)AfAm >90 (>60 ml/min/1.73 sqM) Est GFR (CKD-EPI)NonAf >90 (>60 ml/min/1.73 sqM) Glucose 110 H (74-99) mg/dL Calcium 8.4 (8.4-10.2) mg/dL Total Bilirubin 1.4 H (0.2-1.3) mg/dL AST 32 (14-36) U/L ALT 26 (4-34) U/L Alkaline Phosphatase 75 (38-126) U/L Total Protein 8.1 (6.3-8.2) g/dL Albumin 4.3 (3.5-5.0) g/dL Urine Color Urine Appearance (Clear) Urine pH (5.0-8.0) Ur Specific Girdler (1.001-1.035) Urine Protein (Negative) Urine Glucose (UA) (Negative) Urine Ketones (Negative) Urine Blood (Negative) Urine Nitrite (Negative) Urine Bilirubin (Negative) Urine Urobilinogen (<2.0) mg/dL Ur Leukocyte Esterase (Negative) Urine RBC (0-5) /hpf Urine WBC (0-5) /hpf Ur Squamous Epith Cells (0-4) /hpf Urine Bacteria (None) /hpf Hyaline Casts (0-2) /lpf Urine Mucus (None) /hpf Urine HCG, Qual (Not Detectd) Blood Type Blood Type Recheck Bld Type Recheck Status Antibody Screen Spec Expiration Date Disposition Clinical Impression: Dysfunctional uterine bleeding, Thickened endometrium Disposition: HOME SELF-CARE Condition: Stable Instructions (If sedation given, give patient instructions): Abnormal (Dy sfunctional) Uterine Bleeding (ED) Additional Instructions: Please return to the Emergency Department if symptoms worsen or any other concerns. Is patient prescribed a controlled substance at d/c from ED?: No Referrals: Carosn East MD [Primary Care Provider] - 1-2 days Dione Ortega MD [STAFF PHYSICIAN] - 1-2 days Time of Disposition: 08:25
[2022-10-14 07:05] LABS: Appearance,Urine Clear (Clear); Bacteria,Urine Rare /hpf; Bilirubin,Urine Negative (Negative); Blood,Urine Large (Negative); Color,Urine Yellow; Glucose,Urine (UA) Negative (Negative); Hyaline Casts,Urine 4 /lpf (0-2); Ketones,Urine 1+ (Negative); Leukocyte Esterase,Urine Negative (Negative); Mucus,Urine Moderate /hpf; Nitrite,Urine Negative (Negative); Protein,Urine Trace (Negative); RBC,Urine 1 /hpf (0-5); Specific Gravity,Urine 1.024 (1.001-1.035); Squamous Epithelial Cell,Urine 1 /hpf (0-4); WBC,Urine 3 /hpf (0-5)
[2022-10-14 07:19] LABS: Basophils # (A) 0.1 k/uL (0-0.2); Basophils % (A) 1 %; Eosinophils # (A) 0.1 k/uL (0-0.7); Eosinophils % (A) 1 %; HCT 38.5 % (34.0-46.0); HGB 13.6 gm/dL (11.4-16.0); Lymphocytes # (A) 3.2 k/uL (1.0-4.8); Lymphocytes % (A) 29 %; MCH 30.5 pg (25.0-35.0); MCHC 35.2 g/dL (31.0-37.0); MCV 86.6 fL (80.0-100.0); Mean Platelet Volume 7.5; Monocytes # (A) 0.7 k/uL (0-1.0); Monocytes % (A) 6 %; Neutrophils # (A) 6.7 k/uL (1.3-7.7); Neutrophils % (A) 62 %; Platelet Count 355 k/uL (150-450); RBC 4.45 m/uL (3.80-5.40); RDW 13.3 % (11.5-15.5); WBC 10.9 k/uL (3.8-10.6)
[2022-10-14 07:27] LABS: INR 3.1 (<1.2)
[2022-10-14 07:43] LABS: ALT 26 U/L (4-34); AST 32 U/L (14-36); African American GFR (CKD) >90 (>60 ml/min/1.73 sqM); Albumin 4.3 g/dL (3.5-5.0); Alkaline Phosphatase 75 U/L (38-126); Anion Gap 7 mmol/L; Blood Urea Nitrogen 9 mg/dL (7-17); Calcium 8.4 mg/dL (8.4-10.2); Carbon Dioxide 26 mmol/L (22-30); Chloride 105 mmol/L (98-107); Glucose 110 mg/dL (74-99); Non-African American GFR(CKD) >90 (>60 ml/min/1.73 sqM); Potassium 3.3 mmol/L (3.5-5.1); Sodium 138 mmol/L (137-145); Total Bilirubin 1.4 mg/dL (0.2-1.3); Total Protein 8.1 g/dL (6.3-8.2)
--- NOTE | 2022-10-14 08:14 | US ---
EXAMINATION TYPE: US transvaginal DATE OF EXAM: 10/14/2022 COMPARISON: US 2018 CLINICAL HISTORY: Dysfunctional bleeding. Pt states abnormal heavy vaginal bleeding that started yest erday TECHNIQUE: Transvaginal (TV). Transvaginal sonographic images of the pelvis were acquired. Date of LMP: Started bleeding yesterday EXAM MEASUREMENTS: Uterus: 8.8 x 4.7 x 6.0 cm Endometrial Stripe: 1.5 cm Right Ovary: 2.9 x 2.3 x 2.5 cm 1. Uterus: Anteverted Heterogeneous 2. Endometrium: Mildly prominent. 3. Right Ovary: Small cyst= 2.0 x 1.8 x 1.7 cm 4. Left Ovary: Obscured by overlying bowel gas Spectral, color and waveform doppler imaging shows good arterial and venous flow within the right o vary; there is no evidence for ovarian torsion. 5. Bilateral Adnexa: wnl 6. Posterior cul-de-sac: wnl IMPRESSION: 1. Mildly prominent endometrium which could be due to phase of menstruation versus other etiologies. Consider follow-up ultrasound 6-12 weeks. 2. Right ovarian follicular cyst measuring up to 2 cm. 3. Heterogenous appearance of the uterus which could be seen with fibroid changes versus adenomyosis.
[2022-10-14] MEDS ORDERED: ACET/COD 300 MG/30 MG STARTER PACK 6 TAB BTL PO STA (08:38)
[2022-10-14 09:14] VITALS: BP 130/93; PULSE 85; RESP 15
== END 2022-10-14 09:14 | disposition home or self-care (01) ==
LOC: EC 06:15
DX: G40.909 Epilepsy, unspecified, not intractable, without status epilepticus (principal); N93.8 Other specified abnormal uterine and vaginal bleeding; R93.89 Abnormal findings on diagnostic imaging of other specified body structures; I10 Essential (primary) hypertension; F90.9 Attention-deficit hyperactivity disorder, unspecified type; F41.9 Anxiety disorder, unspecified; F32.A Depression, unspecified; Z79.899 Other long term (current) drug therapy; Z91.040 Latex allergy status; Z88.0 Allergy status to penicillin; Z88.2 Allergy status to sulfonamides; Z88.6 Allergy status to analgesic agent
CPT/HCPCS: 36415; 76830; 80053; 81001; 81025; 85025; 85610; 85730; 86850; 86900; 86901; 93976; 99284; 99285

== ENCOUNTER 2023-10-24 13:29 | Inpatient (IN) | payer OTHER ==
[2023-10-24] MEDS ORDERED: ONDANSETRON 4 MG/2 ML VIAL IVP STA (13:49)
--- NOTE | 2023-10-24 14:14 | ED ---
Arrhythmia/Palpitations HPI - General Chief Complaint: Arrhythmia/Palpitations Stated Complaint: Nausea, Vomiting Time Seen by Provider: 10/24/23 13:38 Source: patient, EMS, RN notes reviewed, old records reviewed Mode of arrival: EMS Limitations: no limitations - History of Present Illness Initial Comments: This is a 48-year-old female who presents today for evaluation regards to chest pain palpitations and arrhythmia elevated blood pressure elevated heart rate. Patient states she was recently discharged from her doctor's primary care and has not been taking all medications. Patient is having persistent occasional chest pain or shortness breath here in the emergency room. Does admit to see for anxiety and states she probably of urinary tract infection. MD Complaint: rapid heart beat, "heart racing", palpitations -: days(s) Arrhythmia History: SVT Associated Symptoms: chest pain, shortness of breath Treatments Prior to Arrival: other (0) - Related Data Home Medications Medication Instructions Recorded Confirmed Loperamide [Imodium] 2 mg PO QID 10/24/23 10/24/23 Previous Rx's Medication Instructions Recorded Cephalexin [Keflex] 500 mg PO Q6HR #40 cap 10/24/23 Furosemide [Lasix] 40 mg PO DAILY #60 tab 10/24/23 lisinopriL [Zestril] 20 mg PO DAILY #30 tab 10/24/23 traZODone HCL 150 mg PO HS #30 tab 10/24/23 Atorvastatin [Lipitor] 20 mg PO DAILY 90 Days #90 tab 10/30/23 Cholestyramine (with Sugar) 4 gm PO BID PRN 30 Days #60 packet 10/30/23 [Questran Packet] Fluconazole [Diflucan] 100 mg PO DAILY 5 Days #5 tab 10/30/23 Hydrocortisone Cream 1 applic TOPICAL BID PRN 30 Days 10/30/23 [Hydrocortisone 1% Cream] #60 each Metoclopramide [Reglan] 5 mg PO ACHS 15 Days #60 tab 10/30/23 Metoprolol Tartrate [Lopressor] 25 mg PO BID 90 Days #180 tab 10/30/23 Pantoprazole [Protonix] 40 mg PO AC-BID 30 Days #60 tab 10/30/23 Warfarin [Coumadin] 5 mg PO DAILY@1800 90 Days #90 tab 10/30/23 lisinopriL [Zestril] 20 mg PO DAILY 90 Days #90 tab 10/30/23 Budesonide-Formot 160-4.5 Mcg 2 puff INHALATION RT-BID 30 Days 11/01/23 [Symbicort 160-4.5 Mcg Inhaler] #1 each HYDROcodone/APAP 5-325MG [[place] 1 each PO Q6HR PRN 3 Days #12 tab 11/01/23 5-325] clonazePAM [KlonoPIN] 1 mg PO BID 7 Days #14 tab 11/01/23 Allergies Allergy/AdvReac Type Severity Reaction Status Date / Time latex Allergy Rash/Hives Verified 10/24/23 16:44 Penicillins Allergy Anaphylaxis Verified 10/24/23 16:44 prochlorperazine edisylate Allergy Anaphylaxis Verified 10/24/23 16:44 [From Compazine] prochlorperazine maleate Allergy Anaphylaxis Verified 10/24/23 16:44 [From Compazine] sulfamethoxazole Allergy Unknown Verified 10/24/23 16:44 [From Bactrim] trimethoprim [From Bactrim] Allergy Unknown Verified 10/24/23 16:44 Review of Systems ROS Statement: Those systems with pertinent positive or pertinent negative responses have been documented in the HPI. ROS Other: All systems not noted in ROS Statement are negative. Past Medical History Past Medical History: Chest Pain / Angina, Fibromyalgia, Hypertension, Memory Impairment, Rheumatoid Arthritis (RA), Seizure Disorder, Syncope Additional Past Medical History / Comment(s): irritable bowel, crohn's disease, vertigo, hypoglycemia, mechanical heart valve History of Any Multi-Drug Resistant Organisms: None Reported Past Surgical History: Cardiac Valve Replacement, Cholecystectomy, Heart Catheterization Additional Past Surgical History / Comment(s): laparoscopy 1994, D&C, colonoscopies, mitral valve replacememnt in 06/14. Past Anesthesia/Blood Transfusion Reactions: No Reported Reaction Additional Past Anesthesia/Blood Transfusion Reaction / Comment(s): slow to wake up @times Past Psychological History: ADD/ADHD, Anxiety, Depression, Panic Disorder, PTSD Smoking Status: Never smoker Past Alcohol Use History: None Reported Past Drug Use History: Marijuana - Past Family History Mother Family Medical History: Congestive Heart Failure (CHF) Father Additional Family Medical History / Comment(s): ETOH, unknown history General Exam Limitations: no limitations General appearance: alert, in no apparent distress, anxious, in distress Head exam: Present: atraumatic, normocephalic, normal inspection Eye exam: Present: normal appearance, PERRL, EOMI. Absent: scleral icterus, conjunctival injection, periorbital swelling ENT exam: Present: normal exam, mucous membranes moist Neck exam: Present: normal inspection. Absent: tenderness, meningismus, lymphadenopathy Respiratory exam: Present: normal lung sounds bilaterally. Absent: respiratory distress, wheezes, rales, rhonchi, stridor Cardiovascular Exam: Present: normal rhythm, tachycardia, normal heart sounds. Absent: systolic murmur, diastolic murmur, rubs, gallop, clicks GI/Abdominal exam: Present: soft, normal bowel sounds. Absent: distended, tenderness, guarding, rebound, rigid Extremities exam: Present: normal inspection, full ROM, normal capillary refill. Absent: tenderness, pedal edema, joint swelling, calf tenderness Back exam: Present: normal inspection Neurological exam: Present: alert, oriented X3, CN II-XII intact Psychiatric exam: Present: normal affect, normal mood Skin exam: Present: warm, dry, intact, normal color. Absent: rash Course Vital Signs 10/24/23 10/24/23 10/24/23 13:31 15:00 15:30 Temperature 98.5 F Pulse Rate 114 H 101 H 85 Respiratory 18 18 Rate Blood Pressure 169/114 178/112 191/127 O2 Sat by Pulse 98 98 98 Oximetry 10/24/23 10/24/23 10/24/23 16:00 16:30 17:00 Temperature Pulse Rate 94 Respiratory Rate Blood Pressure 182/102 177/94 144/93 O2 Sat by Pulse Oximetry 10/24/23 10/24/23 10/24/23 17:30 18:00 18:30 Temperature Pulse Rate 79 72 Respiratory 18 18 Rate Blood Pressure 137/86 131/77 133/75 O2 Sat by Pulse 96 Oximetry 10/24/23 10/25/23 10/25/23 21:32 03:53 04:30 Temperature 98.3 F 98.4 F Pulse Rate 89 98 82 Respiratory 16 18 18 Rate Blood Pressure 169/74 177/111 161/95 O2 Sat by Pulse 96 98 98 Oximetry 10/25/23 05:20 Temperature 98.4 F Pulse Rate 83 Respiratory 19 Rate Blood Pressure 131/73 O2 Sat by Pulse 97 Oximetry - Reevaluation(s) Reevaluation #1: 10/24/23 15:59 Records reviewed Reevaluation #2: 10/24/23 15:59 Patient still with chest pain here in the emergency department off medications Reevaluation #3: 10/24/23 16:00 Patient informed results questions answered no current chest pain Reevaluation #4: 10/24/23 16:00 Was pt. sent in by a medical professional or institution (, [facility], LICENSED SALES PRODUCER, urgent care, hospital, or retirement...) When possible be specific @ -no Did you speak to anyone other than the patient for history (EMS, parent, family, police, friend...)? What history was obtained from this source @ -no Did you review nursing and triage notes (agree or disagree)? Why? @ -agree Are old charts reviewed (outside hosp., previous admission, EMS record, old EKG, old radiological studies, urgent care reports/EKG's, retirement records)? Report findings @ -yes Differential Diagnosis (chest pain, altered mental status, abdominal pain women, abdominal pain men, vaginal bleeding, weakness, fever, dyspnea, syncope, headache, dizziness, GI bleed, back pain, seizure, CVA, palpatations, mental health, musculoskeletal)? @ -prior EKG interpreted by me (3pts min.). @ -yes X-rays interpreted by me (1pt min.). @ -yes positive CHF CT interpreted by me (1pt min.). @ -no U/S interpreted by me (1pt. min.). @ -no What testing was considered but not performed or refused? (CT, X-rays, U/S, labs)? Why? @ -none What meds were considered but not given or refused? Why? @ -none Did you discuss the management of the patient with other professionals (professionals i.e. BARBARA Aranda, LICENSED SALES PRODUCER, lab, RT, psych nurse, outreach and education social worker, biochemist, teacher, interface control officer, supportive employment case manager)? Give summary @ -no Was smoking cessation discussed for >3mins.? @ -no Was critical care preformed (if so, how long)? @ -yes31 Were there social determinants of health that impacted care today? How? (Homelessness, low income, unemployed, alcoholism, drug addiction, t ransportation, low edu. Level, literacy, decrease access to med. care, senior living, rehab)? @ -none Was there de-escalation of care discussed even if they declined (Discuss DNR or withdrawal of care, Hospice)? DNR status @ -no What co-morbidities impacted this encounter? (DM, HTN, Smoking, COPD, CAD, Can cer, CVA, ARF, Chemo, Hep., AIDS, mental health diagnosis, sleep apnea, morbid obesity)? @ -none Was patient admitted / discharged? Hospital course, mention meds given and route, prescriptions, significant lab abnormalities, going to OR and other pertinent info. @ - 48 female to the emergency department today for evaluation regards to severe shortness of breath. Patient presents today for evaluation regards to severe weakness palpitations and off medication. Patient be admitted for elevated troponin with palpitations and arrhythmia Admitted Undiagnosed new problem with uncertain prognosis? @ -no Drug Therapy requiring intensive monitoring for toxicity (Heparin, Nitro, Insulin, Cardizem)? @ -no Were any procedures done? @ -no Diagnosis/symptom? @ -CHF, non-STEMI, arrhythmia Acute, or Chronic, or Acute on Chronic? @ -Acute Uncomplicated (without systemic symptoms) or Complicated (systemic symptoms)? @ -Complicated Side effects of treatment? @ -no Exacerbation, Progression, or Severe Exacerbation? @ -exacerbation Poses a threat to life or bodily function? How? (Chest pain, USA, MD, pneumonia, PE, COPD, DKA, ARF, appy, cholecystitis, CVA, Diverticulitis, Homicidal, Suicidal, threat to staff... and all critical care pts) @ -yes with significant non-STEMI Reevaluation #5: 10/24/23 16:00 Differential Palpitations Ventricular arrhythmias, atrial arrhythmias, myocardial infarction, anemia, thyrotoxicosis, electrolyte imbalance, hypokalemia, pulmonary embolism, pulmonary disease, drugs, alcohol, anxiety, stress.... This is not meant to be an all-inclusive list. - Consultations Consultation #1: spoke with [facility] we'll admit this patient EKG Findings - EKG Comments: EKG Findings:: EKG is sinus 79 AK 140 QRS 84 QTc 450 - EKG Results: EKG: interpreted by TOMI Medical Decision Making - Medical Decision Making 48 female to the emergency department today for evaluation regards to severe shortness of breath. Patient presents today for evaluation regards to severe weakness palpitations and off medication. Patient be admitted for elevated troponin with palpitations and arrhythmia - Lab Data Result diagrams: 10/29/23 06:35 10/29/23 06:35 Lab Results 10/24/23 10/24/23 10/24/23 Range/Units 14:49 14:57 15:18 WBC 12.1 H (3.8-10.6) k/uL RBC 5.43 H (3.80-5.40) m/uL Hgb 15.9 (11.4-16.0) gm/dL Hct 46.0 (34.0-46.0) % MCV 84.7 (80.0-100.0) fL MCH 29.3 (25.0-35.0) pg MCHC 34.6 (31.0-37.0) g/dL RDW 13.3 (11.5-15.5) % Plt Count 209 (150-450) k/uL MPV 7.9 Neutrophils % 81 % Lymphocytes % 9 % Monocytes % 7 % Eosinophils % 1 % Basophils % 0 % Neutrophils # 9.7 H (1.3-7.7) k/uL Lymphocytes # 1.1 (1.0-4.8) k/uL Monocytes # 0.8 (0-1.0) k/uL Eosinophils # 0.1 (0-0.7) k/uL Basophils # 0.0 (0-0.2) k/uL Sodium (137-145) mmol/L Potassium (3.5-5.1) mmol/L Chloride (98-107) mmol/L Carbon Dioxide (22-30) mmol/L Anion Gap mmol/L BUN (7-17) mg/dL Creatinine (0.52-1.04) mg/dL Est GFR (CKD-EPI)AfAm (>60 ml/min/1.73 sqM) Est GFR (CKD-EPI)NonAf (>60 ml/min/1.73 sqM) Glucose (74-99) mg/dL Plasma Lactic Acid Donnie (0.7-2.0) mmol/L Calcium (8.4-10.2) mg/dL Phosphorus (2.5-4.5) mg/dL Magnesium (1.6-2.3) mg/dL Total Bilirubin (0.2-1.3) mg/dL AST (14-36) U/L ALT (4-34) U/L Alkaline Phosphatase (38-126) U/L Troponin I 0.573 H* (0.000-0.034) ng/mL NT-Pro-B Natriuret Pep pg/mL Total Protein (6.3-8.2) g/dL Albumin (3.5-5.0) g/dL Lipase (23-300) U/L Urine Color Yellow Urine Appearance Cloudy H (Clear) Urine pH 6.5 (5.0-8.0) Ur Specific Holder 1.017 (1.001-1.035) Urine Protein 1+ H (Negative) Urine Glucose (UA) Trace H (Negative) Urine Ketones Trace H (Negative) Urine Blood Trace H (Negative) Urine Nitrite Negative (Negative) Urine Bilirubin Negative (Negative) Urine Urobilinogen 3.0 (<2.0) mg/dL Ur Leukocyte Esterase Moderate H (Negative) Urine RBC 5 (0-5) /hpf Urine WBC 7 H (0-5) /hpf Ur Squamous Epith Cells 6 H (0-4) /hpf Urine Bacteria Moderate H (None) /hpf Hyaline Casts 38 H (0-2) /lpf Urine Mucus Many H (None) /hpf 10/24/23 10/24/23 Range/Units 15:18 15:18 WBC (3.8-10.6) k/uL RBC (3.80-5.40) m/uL Hgb (11.4-16.0) gm/dL Hct (34.0-46.0) % MCV (80.0-100.0) fL MCH (25.0-35.0) pg MCHC (31.0-37.0) g/dL RDW (11.5-15.5) % Plt Count (150-450) k/uL MPV Neutrophils % % Lymphocytes % % Monocytes % % Eosinophils % % Basophils % % Neutrophils # (1.3-7.7) k/uL Lymphocytes # (1.0-4.8) k/uL Monocytes # (0-1.0) k/uL Eosinophils # (0-0.7) k/uL Basophils # (0-0.2) k/uL Sodium 140 (137-145) mmol/L Potassium 3.6 (3.5-5.1) mmol/L Chloride 108 H (98-107) mmol/L Carbon Dioxide 17 L (22-30) mmol/L Anion Gap 15 mmol/L BUN 9 (7-17) mg/dL Creatinine 0.66 (0.52-1.04) mg/dL Est GFR (CKD-EPI)AfAm >90 (>60 ml/min/1.73 sqM) Est GFR (CKD-EPI)NonAf >90 (>60 ml/min/1.73 sqM) Glucose 102 H (74-99) mg/dL Plasma Lactic Acid Donnie 1.5 (0.7-2.0) mmol/L Calcium 9.2 (8.4-10.2) mg/dL Phosphorus 3.6 (2.5-4.5) mg/dL Magnesium 1.7 (1.6-2.3) mg/dL Total Bilirubin 1.3 (0.2-1.3) mg/dL AST 50 H (14-36) U/L ALT 48 H (4-34) U/L Alkaline Phosphatase 91 (38-126) U/L Troponin I (0.000-0.034) ng/mL NT-Pro-B Natriuret Pep 2380 pg/mL Total Protein 9.0 H (6.3-8.2) g/dL Albumin 4.4 (3.5-5.0) g/dL Lipase 128 (23-300) U/L Urine Color Urine Appearance (Clear) Urine pH (5.0-8.0) Ur Specific Holder (1.001-1.035) Urine Protein (Negative) Urine Glucose (UA) (Negative) Urine Ketones (Negative) Urine Blood (Negative) Urine Nitrite (Negative) Urine Bilirubin (Negative) Urine Urobilinogen (<2.0) mg/dL Ur Leukocyte Esterase (Negative) Urine RBC (0-5) /hpf Urine WBC (0-5) /hpf Ur Squamous Epith Cells (0-4) /hpf Urine Bacteria (None) /hpf Hyaline Casts (0-2) /lpf Urine Mucus (None) /hpf - EKG Data -: EKG Interpreted by Sd - Radiology Data Radiology results: report reviewed (Chest x-rays negative for acute disease), image reviewed Critical Care Time Critical Care Time: Yes Total Critical Care Time: 31 Disposition Clinical Impression: Palpitations, Hypertension, UTI (urinary tract infection), Chest pain, History of congestive heart failure, History of mitral valve prolapse, Status post mitral valve replacement, Abdominal pain, Shortness of breath Disposition: ADMITTED IP TO THIS HOSP Condition: Serious Is patient prescribed a controlled substance at d/c from ED?: No Time of Disposition: 15:40
[2023-10-24 15:05] LABS: Basophils % (A) 0 %; Eosinophils # (A) 0.1 k/uL (0-0.7); Eosinophils % (A) 1 %; HGB 15.9 gm/dL (11.4-16.0); Lymphocytes # (A) 1.1 k/uL (1.0-4.8); Lymphocytes % (A) 9 %; MCH 29.3 pg (25.0-35.0); MCHC 34.6 g/dL (31.0-37.0); MCV 84.7 fL (80.0-100.0); Mean Platelet Volume 7.9; Monocytes # (A) 0.8 k/uL (0-1.0); Monocytes % (A) 7 %; Neutrophils # (A) 9.7 k/uL (1.3-7.7); Neutrophils % (A) 81 %; Platelet Count 209 k/uL (150-450); RBC 5.43 m/uL (3.80-5.40); RDW 13.3 % (11.5-15.5); WBC 12.1 k/uL (3.8-10.6)
--- NOTE | 2023-10-24 15:15 | XR ---
EXAMINATION TYPE: XR chest 2V DATE OF EXAM: 10/24/2023 3:10 PM CLINICAL INDICATION:Female, 48 years old with history of Weakness; COMPARISON: Chest radiographs from 11/21/2021 TECHNIQUE: XR chest 2V Frontal and lateral views of the chest. FINDINGS: Lungs/Pleura: There is no evidence of pleural effusion, focal consolidation, or pneumothorax. Pulmonary vascularity: Unremarkable. Heart/mediastinum: Cardiomediastinal silhouette is prominent in size. Post valve repair changes. Musculoskeletal: No acute osseous pathology. Midline sternotomy wires and surgical clips project over the mediastinum. IMPRESSION: No acute cardiopulmonary disease/process.
[2023-10-24 15:23] LABS: Appearance,Urine Cloudy (Clear); Bacteria,Urine Moderate /hpf; Bilirubin,Urine Negative (Negative); Blood,Urine Trace (Negative); Color,Urine Yellow; Glucose,Urine (UA) Trace (Negative); Hyaline Casts,Urine 38 /lpf (0-2); Ketones,Urine Trace (Negative); Leukocyte Esterase,Urine Moderate (Negative); Mucus,Urine Many /hpf; Nitrite,Urine Negative (Negative); PH, Urine 6.5 (5.0-8.0); Protein,Urine 1+ (Negative); RBC,Urine 5 /hpf (0-5); Specific Gravity,Urine 1.017 (1.001-1.035); Squamous Epithelial Cell,Urine 6 /hpf (0-4); WBC,Urine 7 /hpf (0-5)
[2023-10-24 15:37] LABS: ALT 48 U/L (4-34); AST 50 U/L (14-36); African American GFR (CKD) >90 (>60 ml/min/1.73 sqM); Albumin 4.4 g/dL (3.5-5.0); Alkaline Phosphatase 91 U/L (38-126); Anion Gap 15 mmol/L; Blood Urea Nitrogen 9 mg/dL (7-17); Calcium 9.2 mg/dL (8.4-10.2); Carbon Dioxide 17 mmol/L (22-30); Chloride 108 mmol/L (98-107); Glucose 102 mg/dL (74-99); Lipase 128 U/L (23-300); Magnesium 1.7 mg/dL (1.6-2.3); Non-African American GFR(CKD) >90 (>60 ml/min/1.73 sqM); Phosphorus 3.6 mg/dL (2.5-4.5); Potassium 3.6 mmol/L (3.5-5.1); Sodium 140 mmol/L (137-145); Total Bilirubin 1.3 mg/dL (0.2-1.3)
[2023-10-24] MEDS ORDERED: cefTRIAXone IN SWFI 1,000 MG/10 ML SYRINGE IVP STA (15:43)
[2023-10-24] MEDS ORDERED: CEPHALEXIN 500MG STARTER PACK 4 CAP BTL PO STA (15:43)
[2023-10-24] MEDS ORDERED: LABETALOL 5 MG/ML VIAL MDV IVP STA (15:43)
[2023-10-24 15:45] LABS: NT-Pro-B-Type Natriuretic Pept 2380 pg/mL
[2023-10-24] MEDS ORDERED: NALOXONE 0.4 MG/ML 1 ML VIAL IV PRN (16:01)
[2023-10-24] MEDS ORDERED: HEPARIN SODIUM 1,000 UN/ML (10ML VL) IV ONE (16:01)
[2023-10-24] MEDS ORDERED: HEPARIN SODIUM 1,000 UN/ML (10ML VL) IV PRN (16:01)
[2023-10-24] MEDS ORDERED: KETOROLAC 15 MG/ML 1 ML VIAL IVP PRN (16:01)
[2023-10-24] MEDS: SODIUM CHLORIDE 0.9% 1,000 ML IV SCH (16:32)
[2023-10-24] MEDS: HEPARIN SOD,PORK IN 0.45% NACL 25,000 UNIT in 0.45% NACL 1 250ML.BAG IV SCH (16:48)
[2023-10-24 18:23] LABS: INR 1.2 (<1.2); Prothrombin Time 12.6 sec (10.0-12.5)
[2023-10-24 18:33] LABS: Partial Thromboplastin Time 100.4 sec (22.0-30.0)
[2023-10-24] MEDS: ACETAMINOPHEN TAB 325 MG TAB PO PRN (19:56)
[2023-10-24] MEDS: LOPERAMIDE 2 MG CAP PO PRN (21:29)
[2023-10-24 21:58] LABS: INR 1.2 (<1.2); Prothrombin Time 12.3 sec (10.0-12.5)
[2023-10-25 03:24] LABS: Basophils # (A) 0.1 k/uL (0-0.2); Basophils % (A) 1 %; Eosinophils # (A) 0.1 k/uL (0-0.7); Eosinophils % (A) 1 %; HCT 41.2 % (34.0-46.0); Lymphocytes # (A) 2.4 k/uL (1.0-4.8); Lymphocytes % (A) 23 %; MCV 85.5 fL (80.0-100.0); Mean Platelet Volume 7.4; Monocytes % (A) 10 %; Neutrophils # (A) 6.8 k/uL (1.3-7.7); Neutrophils % (A) 64 %; Platelet Count 276 k/uL (150-450); RBC 4.82 m/uL (3.80-5.40); RDW 13.7 % (11.5-15.5); WBC 10.8 k/uL (3.8-10.6)
[2023-10-25 03:49] LABS: ALT 37 U/L (4-34); AST 37 U/L (14-36); African American GFR (CKD) >90 (>60 ml/min/1.73 sqM); Albumin 3.9 g/dL (3.5-5.0); Alkaline Phosphatase 80 U/L (38-126); Anion Gap 12 mmol/L; Blood Urea Nitrogen 9 mg/dL (7-17); Calcium 8.6 mg/dL (8.4-10.2); Carbon Dioxide 19 mmol/L (22-30); Chloride 110 mmol/L (98-107); Glucose 92 mg/dL (74-99); Magnesium 1.8 mg/dL (1.6-2.3); Non-African American GFR(CKD) >90 (>60 ml/min/1.73 sqM); Phosphorus 3.7 mg/dL (2.5-4.5); Potassium 3.5 mmol/L (3.5-5.1); Sodium 141 mmol/L (137-145); Total Bilirubin 0.9 mg/dL (0.2-1.3)
[2023-10-25] MEDS ORDERED: ALPRAZolam 0.5 MG TAB PO STA (04:41)
[2023-10-25] MEDS: SODIUM CHLORIDE 0.9% 1,000 ML IV SCH (04:52)
[2023-10-25] MEDS: ONDANSETRON 4 MG/2 ML VIAL IVP PRN (09:08)
[2023-10-25] MEDS: LOPERAMIDE 2 MG CAP PO PRN (09:08)
[2023-10-25] MEDS: PANTOPRAZOLE 40 MG/10 ML VIAL IV SCH (09:08)
--- NOTE | 2023-10-25 09:47 | P.HPIM ---
History of Present Illness This is a pleasant 48 years old female with multiple medical problems. She is a patient of Dr. Carson East but she missed his visit with him after he dropped her care for leg payment, patient says that she got her insurance back and she willing to continue seeing Dr. East, staff contacted Dr. East which states he will see her tomorrow as he is not available today. Patient says she came because she was not feeling well for multiple medical problems, she is having nausea vomiting and diarrhea, she says she feels little sick to her stomach with some pain in the periumbilical area, has been going on for 2 weeks on and off, pain itself is nonradiating, nonspecific in character moderate in severity. However on examination her abdomen looks soft. Also patient reports diarrhea on and off for 2 weeks. She has history of Crohn disease. She states also she has been been a lot but no dysuria. She is complaining from palpitation and pain between her shoulder blades about 8/10 pain, nonradiating sharp pain with no splitting or relieving factor associated with some headache She denies smoking alcohol or drugs but she feels stressed because she lost her brother recently she denies suicidal or homicidal ideation. Vitals stable, BMP and lipase unremarkable, WBCs slightly elevated at 12,000, mild transaminitis. Troponin is elevated at 0.053 Urinalysis with moderate leukocyte esterase and moderate bacteria EKG showing normal sinus rhythm at [address]-T changes and QTC 450 Chest x-ray is negative for Acute process. Review of Systems Review of systems CONSTITUTIONAL: No fever, no malaise, no fatigue. HEENT: No recent visual problems or hearing problems. Denied any sore throat. CARDIOVASCULAR: No orthopnea, PND, no palpitations, no syncope. PULMONARY: No shortness of breath, no cough, no hemoptysis. GASTROINTESTINAL: No diarrhea, no nausea, no vomiting, no abdominal pain. Normoactive bowel sounds. NEUROLOGICAL: No headaches, no weakness, no numbness. HEMATOLOGICAL: Denies any bleeding or petechiae. GENITOURINARY: Denies any burning micturition, frequency, or urgency. MUSCULOSKELETAL/RHEUMATOLOGICAL: Denies any joint pain, swelling, or any muscle pain. ENDOCRINE: Denies any polyuria or polydipsia. Past Medical History Past Medical History: Chest Pain / Angina, Fibromyalgia, Hypertension, Memory Impairment, Rheumatoid Arthritis (RA), Seizure Disorder, Syncope Additional Past Medical History / Comment(s): irritable bowel, crohn's disease, vertigo, hypoglycemia, mechanical heart valve History of Any Multi-Drug Resistant Organisms: None Reported Past Surgical History: Cardiac Valve Replacement, Cholecystectomy, Heart Catheterization Additional Past Surgical History / Comment(s): laparoscopy 1994, D&C, colonoscopies, mitral valve replacememnt in 06/14. Past Anesthesia/Blood Transfusion Reactions: No Reported Reaction Additional Past Anesthesia/Blood Transfusion Reaction / Comment(s): slow to wake up @times Past Psychological History: ADD/ADHD, Anxiety, Depression, Panic Disorder, PTSD Additional Psychological History / Comment(s): brother may 2023 from drug OD Smoking Status: Never smoker Past Alcohol Use History: None Reported Past Drug Use History: Marijuana Additional Drug Use History / Comment(s): uses marijuana edibles daily for pain management - Past Family History Mother Family Medical History: Congestive Heart Failure (CHF) Father Additional Family Medical History / Comment(s): ETOH, unknown history Medications and Allergies Home Medications Medication Instructions Recorded Confirmed Type Cephalexin [Keflex] 500 mg PO Q6HR #40 cap 10/24/23 Rx Furosemide [Lasix] 40 mg PO DAILY #60 tab 10/24/23 Rx Loperamide [Imodium] 2 mg PO QID 10/24/23 10/24/23 History lisinopriL [Zestril] 20 mg PO DAILY #30 tab 10/24/23 Rx traZODone HCL 150 mg PO HS #30 tab 10/24/23 Rx Allergies Allergy/AdvReac Type Severity Reaction Status Date / Time latex Allergy Rash/Hives Verified 10/24/23 16:44 Penicillins Allergy Anaphylaxis Verified 10/24/23 16:44 prochlorperazine edisylate Allergy Anaphylaxis Verified 10/24/23 16:44 [From Compazine] prochlorperazine maleate Allergy Anaphylaxis Verified 10/24/23 16:44 [From Compazine] sulfamethoxazole Allergy Unknown Verified 10/24/23 16:44 [From Bactrim] trimethoprim [From Bactrim] Allergy Unknown Verified 10/24/23 16:44 Physical Exam Vitals: Vital Signs Temp Pulse Pulse Resp BP BP Pulse Ox 10/25/23 05:48 99.1 F 90 18 170/90 98 10/25/23 05:20 98.4 F 83 19 131/73 97 10/25/23 04:30 82 18 161/95 98 10/25/23 03:53 98.4 F 98 18 177/111 98 10/24/23 21:32 98.3 F 89 16 169/74 96 10/24/23 18:30 133/75 10/24/23 18:00 72 18 131/77 10/24/23 17:30 79 18 137/86 96 10/24/23 17:00 144/93 10/24/23 16:30 177/94 10/24/23 16:00 94 182/102 10/24/23 15:30 85 191/127 98 10/24/23 15:00 101 H 18 178/112 98 10/24/23 13:31 98.5 F 114 H 18 169/114 98 Intake and Output 10/24/23 10/25/23 10/25/23 22:59 06:59 14:59 Intake Total 55.554 Balance 55.554 Intake: Intake, IV Titration 55.554 Amount Heparin Sod,Pork in 0.45% 55.554 NaCl 25,000 unit In 0.45 % NaCl 1 250ml.bag @ 10.7 UNITS/KG/HR 9.95 mls/hr IV .Q24H [facility] Rx#: [id number] Other: Weight 92.986 kg GENERAL: The patient is alert and oriented x3, not in any acute distress. Well developed, well nourished. HEENT: Pupils are round and equally reacting to light. EOMI. No scleral icterus. No conjunctival pallor. Normocephalic, atraumatic. No pharyngeal erythema. No thyromegaly. CARDIOVASCULAR: S1 and S2 present. No murmurs, rubs, or gallops. PULMONARY: Chest is clear to auscultation, no wheezing , no crackles. ABDOMEN: Soft, nontender, nondistended, normoactive bowel sounds. No palpable organomegaly. MUSCULOSKELETAL: No joint swelling or deformity. EXTREMITIES: No cyanosis, clubbing, or pedal edema. NEUROLOGICAL: Gross neurological examination did not reveal any focal deficits. SKIN: No rashes. no petechiae. Results CBC & Chem 7: 10/25/23 03:05 10/25/23 03:05 Labs: Abnormal Lab Results - Last 24 Hours (Table) 10/24/23 10/24/23 10/24/23 Range/Units 14:49 14:57 15:18 WBC 12.1 H (3.8-10.6) k/uL RBC 5.43 H (3.80-5.40) m/uL Neutrophils # 9.7 H (1.3-7.7) k/uL PT (10.0-12.5) sec INR (<1.2) APTT (22.0-30.0) sec Chloride (98-107) mmol/L Carbon Dioxide (22-30) mmol/L Glucose (74-99) mg/dL AST (14-36) U/L ALT (4-34) U/L Troponin I 0.573 H* (0.000-0.034) ng/mL Total Protein (6.3-8.2) g/dL Urine Appearance Cloudy H (Clear) Urine Protein 1+ H (Negative) Urine Glucose (UA) Trace H (Negative) Urine Ketones Trace H (Negative) Urine Blood Trace H (Negative) Ur Leukocyte Esterase Moderate H (Negative) Urine WBC 7 H (0-5) /hpf Ur Squamous Epith Cells 6 H (0-4) /hpf Urine Bacteria Moderate H (None) /hpf Hyaline Casts 38 H (0-2) /lpf Urine Mucus Many H (None) /hpf 10/24/23 10/24/23 10/24/23 Range/Units 15:18 17:06 17:06 WBC (3.8-10.6) k/uL RBC (3.80-5.40) m/uL Neutrophils # (1.3-7.7) k/uL PT 12.6 H (10.0-12.5) sec INR 1.2 H (<1.2) APTT 100.4 H* (22.0-30.0) sec Chloride 108 H (98-107) mmol/L Carbon Dioxide 17 L (22-30) mmol/L Glucose 102 H (74-99) mg/dL AST 50 H (14-36) U/L ALT 48 H (4-34) U/L Troponin I 0.563 H* (0.000-0.034) ng/mL Total Protein 9.0 H (6.3-8.2) g/dL Urine Appearance (Clear) Urine Protein (Negative) Urine Glucose (UA) (Negative) Urine Ketones (Negative) Urine Blood (Negative) Ur Leukocyte Esterase (Negative) Urine WBC (0-5) /hpf Ur Squamous Epith Cells (0-4) /hpf Urine Bacteria (None) /hpf Hyaline Casts (0-2) /lpf Urine Mucus (None) /hpf 10/24/23 10/24/23 10/25/23 Range/Units 21:39 21:39 03:05 WBC 10.8 H (3.8-10.6) k/uL RBC (3.80-5.40) m/uL Neutrophils # (1.3-7.7) k/uL PT (10.0-12.5) sec INR 1.2 H (<1.2) APTT 50.0 H (22.0-30.0) sec Chloride (98-107) mmol/L Carbon Dioxide (22-30) mmol/L Glucose (74-99) mg/dL AST (14-36) U/L ALT (4-34) U/L Troponin I 0.573 H* (0.000-0.034) ng/mL Total Protein (6.3-8.2) g/dL Urine Appearance (Clear) Urine Protein (Negative) Urine Glucose (UA) (Negative) Urine Ketones (Negative) Urine Blood (Negative) Ur Leukocyte Esterase (Negative) Urine WBC (0-5) /hpf Ur Squamous Epith Cells (0-4) /hpf Urine Bacteria (None) /hpf Hyaline Casts (0-2) /lpf Urine Mucus (None) /hpf 10/25/23 10/25/23 Range/Units 03:05 07:27 WBC (3.8-10.6) k/uL RBC (3.80-5.40) m/uL Neutrophils # (1.3-7.7) k/uL PT (10.0-12.5) sec INR (<1.2) APTT 47.3 H (22.0-30.0) sec Chloride 110 H (98-107) mmol/L Carbon Dioxide 19 L (22-30) mmol/L Glucose (74-99) mg/dL AST 37 H (14-36) U/L ALT 37 H (4-34) U/L Troponin I (0.000-0.034) ng/mL Total Protein (6.3-8.2) g/dL Urine Appearance (Clear) Urine Protein (Negative) Urine Glucose (UA) (Negative) Urine Ketones (Negative) Urine Blood (Negative) Ur Leukocyte Esterase (Negative) Urine WBC (0-5) /hpf Ur Squamous Epith Cells (0-4) /hpf Urine Bacteria (None) /hpf Hyaline Casts (0-2) /lpf Urine Mucus (None) /hpf Thrombosis Risk Factor Assmnt - Choose All That Apply Any of the Below Risk Factors Present?: Yes Each Factor Represents 1 point: Age 41-60 years Other Risk Factors: No Other congenital or acquired thrombophilia - If yes, enter type in comment: No Thrombosis Risk Factor Assessment Total Risk Factor Score: 1 Thrombosis Risk Factor Assessment Level: Low Risk Assessment and Plan Assessment: Elevated troponin suspicious for none STEMI and patient was started with heparin drip and emergency room Possible acute urinary tract infection with symptoms of increased frequency Nausea vomiting and diarrhea could be reactive gastroenteritis, rule out Crohn's flareup History of from a cardiac disease Monitored valve prolapse History of seizure Hypertension, Hyperlipidemia History of rheumatoid arthritis Crohn's disease obesity with BMI of 32.1 bereavement with rah of family member Plan: Continue with normal saline 75 mm per hour Continue Rocephin Follow-up urine culture Check for C. diff Consider surgical consult with no improvement of her abdominal symptoms. We'll order ultrasound of the liver as her pain becomes worse right side Continue with heparin drip Cardiology consult Check ESR and C-reactive protein patient says she is to take Klonopin for seizure, she was taken Klonopin 0.5 mg twice a day Labs and medication were reviewed.. Continue same treatment. Continue with symptomatic treatment. Resume home medication. Monitor labs and vitals. DVT and GI prophylaxis. Further recommendations as per clinical course of the patient DVT prophylaxis: heparin GI Prophylaxis: Pepcid PT/OT: Pending Prognosis is guarded Dr. Carson East will resume the care of the patient tomorrow, he was informed by staff
[2023-10-25] MEDS ORDERED: POTASSIUM CHLORIDE ER 20 MEQ TAB.ER PO STA (09:50)
[2023-10-25] MEDS ORDERED: FUROSEMIDE 10 MG/ML 4 ML VIAL IV STA (09:50)
--- NOTE | 2023-10-25 11:58 | US ---
EXAMINATION TYPE: US liver DATE OF EXAM: 10/25/2023 COMPARISON: NONE CLINICAL INDICATION: Female, 48 years old with history of abd pain; Abdominal pain, nausea/vomiting, UTI. Cholecystectomy TECHNIQUE: Multiple sonographic images of the right upper quadrant are obtained. 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 No evidence for acute process. 2. Hyperechoic focus in the right upper renal pole favored to represent a nonobstructive calculus
--- NOTE | 2023-10-25 14:58 | XR ---
EXAMINATION TYPE: XR KUB portable DATE OF EXAM: 10/25/2023 10:05 AM CLINICAL INDICATION:Female, 48 years old with history of pain; [facility] COMPARISON: None. TECHNIQUE: Supine radiographic view/s of the abdomen/pelvis obtained. FINDINGS: The bowel gas pattern is nonspecific, likely nonobstructive without dilated loops of small or large b owel. Fecal material and gas are demonstrated throughout the colon and rectum. Mild colonic stool bur den. No gross evidence of organomegaly. No evidence of pneumoperitoneum in the limitations of supine technique. Ovoid calcification inferior to the diaphragm the medial left upper quadrant, likely dystr ophic. No clearly pathologic calcifications are seen. Pelvic phleboliths. Osseous structures appear g rossly intact with degenerative changes of the spine and hips noted. Clip started her quadrant likel y from cholecystectomy. Partially seen sternotomy wire and probable prosthetic heart valve. IMPRESSION: Nonspecific, likely nonobstructive bowel gas pattern. If concern persists, consider follow-up radiogr aphs and/or CT.
[2023-10-25] MEDS: LOSARTAN 25 MG TAB PO SCH (16:50)
[2023-10-25] MEDS: HEPARIN SOD,PORK IN 0.45% NACL 25,000 UNIT in 0.45% NACL 1 250ML.BAG IV SCH (17:47)
--- NOTE | 2023-10-25 18:03 | P.CRDCN ---
History of Present Illness Consult date: 10/25/23 History of present illness: HISTORY OF PRESENTING ILLNESS 48-year-old female with multiple medical problems. Has a past medical history of severe mitral regurgitation and mild nonobstructive coronary artery disease diagnosed in 2019. At that time she had a surgical mitral valve repair done. Since then she has been lost to follow-up and has not seen any collection systems technician. Next This time she present to the hospital because of worsening nausea, abdominal pain, GI upset and diarrhea. She does have history of Crohn's disease. Patient also reports that she has been going through significant emotional stress as her brother recently . On admission her ECG shows sinus rhythm with T-wave inversions in inferolateral leads, mild QTC prolongation at 450 ms She had elevation of troponin measuring at 0.5 with a flat pattern. Her creatinine was normal at 0.6. REVIEW OF SYSTEMS 14 point review of system is negative except what is mentioned above in HPI. PHYSICAL EXAMINATION Vital signs reviewed. Head: Normocephalic. Eyes: Sclerae nonicteric. Neck: Brisk carotid upstroke, no jugular venous distention. Lungs: Clear to auscultation. Heart: Regular rate and rhythm, S1-S2, no S3, no murmur or rub. Abdomen: Soft nontender, positive bowel sounds no organomegaly. Extremities: No edema, intact distal pulses. Neuro: Alert, oritented, no focal deficits ASSESSMENT Elevated troponin, likely type II nstemi from stress cardiomyopathy. Bereavement with loss of family member, they cause Takotsubo cardio myopathy T-wave inversions in inferolateral leads and mild QTC prolonged patient History of mitral valve repair 2019 Mild CAD as of 2019 Nausea, vomiting, abdominal pain, diarrhea History of Crohn's disease Hypertension Dyslipidemia Morbid obesity PLAN Continue IV heparin drip Start aspirin 81 mg, start Lipitor 20 mg daily Start metoprolol 25 mg twice a day start losartan 25 mg daily Obtain an echocardiogram Plan for cardiac catheterization on Thursday with Dr. Tolbert to rule out ischemic etiology Past Medical History Past Medical History: Chest Pain / Angina, Fibromyalgia, Hypertension, Memory Impairment, Rheumatoid Arthritis (RA), Seizure Disorder, Syncope Additional Past Medical History / Comment(s): irritable bowel, crohn's disease, vertigo, hypoglycemia, mechanical heart valve History of Any Multi-Drug Resistant Organisms: None Reported Past Surgical History: Cardiac Valve Replacement, Cholecystectomy, Heart Catheterization Additional Past Surgical History / Comment(s): laparoscopy 1994, D&C, colonoscopies, mitral valve replacememnt in 06/14. Past Anesthesia/Blood Transfusion Reactions: No Reported Reaction Additional Past Anesthesia/Blood Transfusion Reaction / Comment(s): slow to wake up @times Past Psychological History: ADD/ADHD, Anxiety, Depression, Panic Disorder, PTSD Additional Psychological History / Comment(s): brother may 2023 from drug OD Smoking Status: Never smoker Past Alcohol Use History: None Reported Past Drug Use History: Marijuana Additional Drug Use History / Comment(s): uses marijuana edibles daily for pain management - Past Family History Mother Family Medical History: Congestive Heart Failure (CHF) Father Additional Family Medical History / Comment(s): ETOH, unknown history Medications and Allergies Home Medications Medication Instructions Recorded Confirmed Type Cephalexin [Keflex] 500 mg PO Q6HR #40 cap 10/24/23 Rx Furosemide [Lasix] 40 mg PO DAILY #60 tab 10/24/23 Rx Loperamide [Imodium] 2 mg PO QID 10/24/23 10/24/23 History lisinopriL [Zestril] 20 mg PO DAILY #30 tab 10/24/23 Rx traZODone HCL 150 mg PO HS #30 tab 10/24/23 Rx Allergies Allergy/AdvReac Type Severity Reaction Status Date / Time latex Allergy Rash/Hives Verified 10/24/23 16:44 Penicillins Allergy Anaphylaxis Verified 10/24/23 16:44 prochlorperazine edisylate Allergy Anaphylaxis Verified 10/24/23 16:44 [From Compazine] prochlorperazine maleate Allergy Anaphylaxis Verified 10/24/23 16:44 [From Compazine] sulfamethoxazole Allergy Unknown Verified 10/24/23 16:44 [From Bactrim] trimethoprim [From Bactrim] Allergy Unknown Verified 10/24/23 16:44 Physical Exam Vitals: Vital Signs Temp Pulse Pulse Resp BP BP Pulse Ox 10/25/23 17:23 137/74 10/25/23 16:45 101 H 19 174/109 97 10/25/23 11:20 85 18 146/79 97 10/25/23 09:05 98.1 F 99 18 172/108 98 10/25/23 05:48 99.1 F 90 18 170/90 98 10/25/23 05:20 98.4 F 83 19 131/73 97 10/25/23 04:30 82 18 161/95 98 10/25/23 03:53 98.4 F 98 18 177/111 98 10/24/23 21:32 98.3 F 89 16 169/74 96 10/24/23 18:30 133/75 Intake and Output 10/25/23 10/25/23 10/25/23 06:59 14:59 22:59 Intake Total 311.03 Balance 311.03 Intake: Intake, IV Titration 193.03 Amount Heparin Sod,Pork in 0.45% 193.03 NaCl 25,000 unit In 0.45 % NaCl 1 250ml.bag @ 10.7 UNITS/KG/HR 9.95 mls/hr IV .Q24H [facility] Rx#: [id number] Oral 118 Other: # Voids 2 2 Weight 92.986 kg Results 10/25/23 03:05 10/25/23 03:05 Cardiac Enzymes 10/24/23 10/24/23 10/25/23 Range/Units 17:06 21:39 03:05 AST 37 H (14-36) U/L Troponin I 0.563 H* 0.573 H* (0.000-0.034) ng/mL Coagulation 10/24/23 10/24/23 10/25/23 Range/Units 17:06 21:39 07:27 PT 12.6 H 12.3 (10.0-12.5) sec APTT 100.4 H* 50.0 H 47.3 H (22.0-30.0) sec CBC 10/25/23 Range/Units 03:05 WBC 10.8 H (3.8-10.6) k/uL RBC 4.82 (3.80-5.40) m/uL Hgb 14.0 (11.4-16.0) gm/dL Hct 41.2 (34.0-46.0) % Plt Count 276 (150-450) k/uL Comprehensive Metabolic Panel 10/25/23 Range/Units 03:05 Sodium 141 (137-145) mmol/L Potassium 3.5 (3.5-5.1) mmol/L Chloride 110 H (98-107) mmol/L Carbon Dioxide 19 L (22-30) mmol/L BUN 9 (7-17) mg/dL Creatinine 0.59 (0.52-1.04) mg/dL Glucose 92 (74-99) mg/dL Calcium 8.6 (8.4-10.2) mg/dL AST 37 H (14-36) U/L ALT 37 H (4-34) U/L Alkaline Phosphatase 80 (38-126) U/L Total Protein 8.0 (6.3-8.2) g/dL Albumin 3.9 (3.5-5.0) g/dL Current Medications Generic Name Dose Route Start Last Admin Trade Name Freq PRN Reason Stop Dose Admin Acetaminophen 650 mg 10/24/23 19:13 10/24/23 19:56 Acetaminophen Tab 325 Mg Tab PO 650 mg Q6HR PRN Administration Fever and/ or Pain Aspirin 81 mg 10/25/23 18:15 Aspirin 81 Mg PO DAILY [facility] Atorvastatin Calcium 20 mg 10/25/23 18:15 Atorvastatin 20 Mg Tab PO DAILY [facility] Clonazepam 0.5 mg 10/25/23 21:00 Clonazepam 0.5 Mg Tab PO BID [facility] Heparin Sodium (Porcine) 0 unit 10/24/23 16:01 Heparin Sodium 1,000 Un/Ml (10ml Vl) IV PER PROTOCOL PRN Low PTT Protocol Heparin Sodium/Sodium Chloride 250 mls @ 9.95 mls/hr 10/24/23 16:15 10/25/23 17:47 25,000 unit/ Sodium Chloride IV 10.7 units/kg/hr .Q24H [facility] 9.95 mls/hr Administration Protocol 10.7 UNITS/KG/HR Ceftriaxone Sodium 1 gm/ 50 mls @ 100 mls/hr 10/25/23 11:00 10/25/23 11:20 Sodium Chloride IVPB 100 mls/hr Q24HR [facility] Administration Protocol Ketorolac Tromethamine 15 mg 10/24/23 16:01 Ketorolac 15 Mg/Ml 1 Ml Vial IVP 10/27/23 16:03 Q6HR PRN Moderate Pain (Scale 4 to 6) Loperamide HCl 2 mg 10/24/23 21:00 10/25/23 09:08 Loperamide 2 Mg Cap PO 2 mg QID PRN Administration Diarrhea Losartan Potassium 25 mg 10/25/23 16:46 10/25/23 16:50 Losartan 25 Mg Tab PO 25 mg DAILY [facility] Administration Metoprolol Tartrate 25 mg 10/25/23 21:00 Metoprolol Tartrate 25 Mg Tab PO BID [facility] Morphine Sulfate 4 mg 10/24/23 16:01 Morphine Sulfate 4 Mg/Ml Syringe IV Q4HR PRN Severe Pain (Scale 7 to 10) Naloxone HCl 0.2 mg 10/24/23 16:01 Naloxone 0.4 Mg/Ml 1 Ml Vial IV Q2M PRN Opioid Reversal Ondansetron HCl 4 mg 10/24/23 16:01 10/25/23 09:08 Ondansetron 4 Mg/2 Ml Vial IVP 4 mg Q8HR PRN Administration Nausea And Vomiting Pantoprazole Sodium 40 mg 10/25/23 09:00 10/25/23 09:08 Pantoprazole 40 Mg/10 Ml Vial IV 40 mg DAILY [facility] Administration Intake and Output 10/25/23 10/25/23 10/25/23 06:59 14:59 22:59 Intake Total 311.03 Balance 311.03 Intake: Intake, IV Titration 193.03 Amount Heparin Sod,Pork in 0.45% 193.03 NaCl 25,000 unit In 0.45 % NaCl 1 250ml.bag @ 10.7 UNITS/KG/HR 9.95 mls/hr IV .Q24H [facility] Rx#: [id number] Oral 118 Other: # Voids 2 2 Weight 92.986 kg 10/25/23 03:05 10/25/23 03:05
[2023-10-25] MEDS: ASPIRIN 81 MG PO SCH (19:58)
[2023-10-25] MEDS: METOPROLOL TARTRATE 25 MG TAB PO SCH (19:58)
[2023-10-25] MEDS: ATORVASTATIN 20 MG TAB PO SCH (19:58)
[2023-10-25] MEDS: clonazePAM 0.5 MG TAB PO SCH (19:58)
[2023-10-26] MEDS: traZODone HCL 50 MG TAB PO SCH ×2 (01:13→21:22)
[2023-10-26] MEDS: ATORVASTATIN 20 MG TAB PO SCH (08:24)
[2023-10-26] MEDS: ASPIRIN 81 MG PO SCH (08:37)
[2023-10-26] MEDS: LOSARTAN 25 MG TAB PO SCH (08:37)
[2023-10-26] MEDS: METOPROLOL TARTRATE 25 MG TAB PO SCH ×2 (08:37→21:22)
[2023-10-26] MEDS: PANTOPRAZOLE 40 MG/10 ML VIAL IV SCH (08:37)
[2023-10-26] MEDS: clonazePAM 0.5 MG TAB PO SCH ×2 (08:37→21:21)
[2023-10-26] MEDS ORDERED: LOSARTAN 25 MG TAB PO SCH (09:00)
--- NOTE | 2023-10-26 12:34 | P.GSCN ---
History of Present Illness Consult date: 10/26/23 Reason for Consult: Abdominal pain History of present illness: 48-year-old female came to the hospital because of nausea vomiting, pain, fevers . Patient describes history of chronic diarrhea. States she was told she had Crohn's disease. She takes Bentyl and Imodium for her bowel issues. History of previous cholecystectomy. Abdominal x-rays nonspecific. Ultrasound no acute abnormalities. Patient states she is worried she has a hernia. She was having vomiting for 3 days at home. Not bloody. No rectal bleeding or melena. Last colonoscopy she thinks was 1.5 years ago. She sees GI for this. Mild leukocytosis. Blood pressure was elevated. Consulted for abdominal pain. Review of Systems The patient denies any acute changes in vision or hearing, no dysphagia or odynophagia, no chest pain or shortness of breath, no dysuria or hematuria, no headache, no runny nose, no rectal bleeding or melena, no unexplained weight loss Past Medical History Past Medical History: Chest Pain / Angina, Fibromyalgia, Hypertension, Memory Impairment, Rheumatoid Arthritis (RA), Seizure Disorder, Syncope Additional Past Medical History / Comment(s): irritable bowel, crohn's disease, vertigo, hypoglycemia, mechanical heart valve History of Any Multi-Drug Resistant Organisms: None Reported Past Surgical History: Cardiac Valve Replacement, Cholecystectomy, Heart Catheterization Additional Past Surgical History / Comment(s): laparoscopy 1994, D&C, colonoscopies, mitral valve replacememnt in 06/14. Past Anesthesia/Blood Transfusion Reactions: No Reported Reaction Additional Past Anesthesia/Blood Transfusion Reaction / Comm: slow to wake up @times Past Psychological History: ADD/ADHD, Anxiety, Depression, Panic Disorder, PTSD Additional Psychological History / Comment(s): brother may 2023 from drug OD Smoking Status: Never smoker Past Alcohol Use History: None Reported Past Drug Use History: Marijuana Additional Drug Use History / Comment(s): uses marijuana edibles daily for pain management - Past Family History Mother Family Medical History: Congestive Heart Failure (CHF) Father Additional Family Medical History / Comment(s): ETOH, unknown history Medications and Allergies Home Medications Medication Instructions Recorded Confirmed Type Cephalexin [Keflex] 500 mg PO Q6HR #40 cap 10/24/23 Rx Furosemide [Lasix] 40 mg PO DAILY #60 tab 10/24/23 Rx Loperamide [Imodium] 2 mg PO QID 10/24/23 10/24/23 History lisinopriL [Zestril] 20 mg PO DAILY #30 tab 10/24/23 Rx traZODone HCL 150 mg PO HS #30 tab 10/24/23 Rx Allergies Allergy/AdvReac Type Severity Reaction Status Date / Time latex Allergy Rash/Hives Verified 10/24/23 16:44 Penicillins Allergy Anaphylaxis Verified 10/24/23 16:44 prochlorperazine edisylate Allergy Anaphylaxis Verified 10/24/23 16:44 [From Compazine] prochlorperazine maleate Allergy Anaphylaxis Verified 10/24/23 16:44 [From Compazine] sulfamethoxazole Allergy Unknown Verified 10/24/23 16:44 [From Bactrim] trimethoprim [From Bactrim] Allergy Unknown Verified 10/24/23 16:44 Surgical - Exam Vital Signs Temp Pulse Resp BP Pulse Ox 98.5 F 114 H 18 169/114 98 10/24/23 13:31 10/24/23 13:31 10/24/23 13:31 10/24/23 13:31 10/24/23 13:31 Physical exam: General: Well-developed, well-nourished HEENT: Normocephalic, sclerae nonicteric Abdomen: Mild periumbilical tenderness, nondistended Extremities: No edema Neuro: Alert and oriented Results - Labs 10/25/23 03:05 10/25/23 03:05 Abnormal Lab Results - Last 24 Hours (Table) 10/25/23 10/26/23 Range/Units 03:05 07:33 ESR 35 H (0-20) mm/Hr APTT 47.1 H (22.0-30.0) sec Assessment and Plan (1) Abdominal pain Narrative/Plan: 48-year-old female with abdominal pain. Etiology unclear but could be related to viral gastroenteritis. We'll order CT abdomen and pelvis. Continue diet for now. Current Visit: Yes Status: Acute Code(s): R10.9 - UNSPECIFIED ABDOMINAL PAIN SNOMED Code(s): 77678724
[2023-10-26] MEDS: ACETAMINOPHEN TAB 325 MG TAB PO PRN ×2 (12:41→22:08)
[2023-10-26] MEDS: ONDANSETRON 4 MG/2 ML VIAL IVP PRN ×2 (12:44→22:07)
[2023-10-26] MEDS: IOPAMIDOL CONTRAST (ORAL USE) VIAL PO PRN ×2 (13:36→14:27)
[2023-10-26] MEDS: HEPARIN SOD,PORK IN 0.45% NACL 25,000 UNIT in 0.45% NACL 1 250ML.BAG IV SCH (13:38)
--- NOTE | 2023-10-26 13:42 | P.PN ---
Subjective Progress Note Date: 10/26/23 Progress And patient is seen and examined with the exam. Patient denies any active chest pain chest pressure at this time. She is comfortable. She is less anxious as compared to yesterday HISTORY OF PRESENTING ILLNESS 48-year-old female with multiple medical problems. Has a past medical history of severe mitral regurgitation and mild nonobstructive coronary artery disease d iagnosed in 2019. At that time she had a surgical mitral valve repair done. Since then she has been lost to follow-up and has not seen any sales product manager. Next This time she present to the hospital because of worsening nausea, abdominal pain, GI upset and diarrhea. She does have history of Crohn's disease. Patient also reports that she has been going through significant emotional stress as her brother recently . On admission her ECG shows sinus rhythm with T-wave inversions in inferolateral leads, mild QTC prolongation at 450 ms She had elevation of troponin measuring at 0.5 with a flat pattern. Her creatinine was normal at 0.6. REVIEW OF SYSTEMS 14 point review of system is negative except what is mentioned above in HPI. PHYSICAL EXAMINATION Vital signs reviewed. Head: Normocephalic. Eyes: Sclerae nonicteric. Neck: Brisk carotid upstroke, no jugular venous distention. Lungs: Clear to auscultation. Heart: Regular rate and rhythm, S1-S2, no S3, no murmur or rub. Abdomen: Soft nontender, positive bowel sounds no organomegaly. Extremities: No edema, intact distal pulses. Neuro: Alert, oritented, no focal deficits ASSESSMENT Elevated troponin, likely type II nstemi from stress cardiomyopathy. Bereavement with loss of family member, they cause Takotsubo cardio myopathy T-wave inversions in inferolateral leads and mild QTC prolonged patient History of mitral valve repair 2019 Mild CAD as of 2019 Nausea, vomiting, abdominal pain, diarrhea History of Crohn's disease Hypertension Dyslipidemia Morbid obesity PLAN Continue IV heparin drip. Discontinue tomorrow as she will complete 48 hours Start aspirin 81 mg, start Lipitor 20 mg daily Start metoprolol 25 mg twice a day start losartan 25 mg daily Obtain an echocardiogram I had a discussion about cardiac catheterization with the patient. At this time patient does not want to have a cardiac catheterization and would like to be treated medically only. I have educated that she might need a heart catheterization. Patient states that she would like to wait for echocardiogram results before deciding if she is willing for heart catheterization Objective - Vital Signs Vital signs: Vital Signs Temp 98.8 F 10/26/23 12:00 Pulse 75 10/26/23 12:00 Resp 18 10/26/23 12:00 BP 97/49 10/26/23 12:00 Pulse Ox 96 10/26/23 12:00 FiO2 Intake & Output 10/25/23 10/26/23 10/26/23 18:59 06:59 18:59 Intake Total 311.03 1320 917.508 Balance 311.03 1320 917.508 Intake: Intake, IV Titration 193.03 197.508 Amount Heparin Sod,Pork in 0.45% 193.03 197.508 NaCl 25,000 unit In 0.45 % NaCl 1 250ml.bag @ 10.7 UNITS/KG/HR 9.95 mls/hr IV .Q24H [facility] Rx#: [id number] Oral 118 1320 720 Other: Voiding Method Toilet # Voids 2 1 2 - Labs CBC & Chem 7: 10/25/23 03:05 10/25/23 03:05 Labs: Abnormal Lab Results - Last 24 Hours (Table) 10/25/23 10/26/23 Range/Units 03:05 07:33 ESR 35 H (0-20) mm/Hr APTT 47.1 H (22.0-30.0) sec
--- NOTE | 2023-10-26 15:39 | CT ---
EXAMINATION TYPE: CT abdomen pelvis w con CT DLP: 1493.7 mGycm, Automated exposure control for dose reduction was used. DATE OF EXAM: 10/26/2023 3:17 PM COMPARISON: CT abdomen pelvis most recent from 06/06/2019. CLINICAL INDICATION:Female, 48 years old with history of Abdominal pain; abdominal pain TECHNIQUE: Axial CT abdomen pelvis w con;Sagittal and coronal reformats were created on a separate w orkstation. Contrast used:100 ml mL of Isovue 300 with IV Contrast, (none if empty) Oral contrast used: without Oral Contrast (none if empty) FINDINGS: LOWER CHEST: Unremarkable ABDOMEN LIVER: Unremarkable GALLBLADDER AND BILE DUCTS: Gallbladder surgically absent. PANCREAS: Unremarkable. SPLEEN: Unremarkable. ADRENAL GLANDS: Unremarkable. KIDNEYS AND URETERS: No evidence of hydronephrosis or renal calculus. The ureters are unremarkable. PELVIS BLADDER: Unremarkable REPRODUCTIVE: Unremarkable. ABDOMEN & PELVIS STOMACH AND BOWEL: No evidence of bowel obstruction. Scattered colonic diverticula. PERITONEUM/RETROPERITONEUM: No evidence of pneumoperitoneum or free fluid. VASCULATURE: Mild atherosclerotic calcifications are present throughout the abdominal aorta and its b ranches. No evidence of aortic aneurysm. MUSCULOSKELETAL: No acute osseous abnormalities. Mild disc degeneration changes are present throughou t the thoracolumbar spine. LYMPH NODES: Multiple prominent lymph nodes are seen in the upper abdomen in the in the aury hepatis measuring up to 12 mm in short axis which can be seen in normal anatomy. SOFT TISSUE/ABDOMINAL WALL: Fat-containing inguinal hernia. IMPRESSION: 1. No evidence for acute abdominal process. 2. No obstructive uropathy or renal calculus. 3. Colonic diverticulosis.
[2023-10-26] MEDS: LOPERAMIDE 2 MG CAP PO PRN (15:48)
--- NOTE | 2023-10-26 16:55 | CA ---
Transthoracic Echo Report Name: Tabitha Knox Age: 48 Gender: F : 1975 Exam Date: 10/26/2023 11:38 Exam Location: [facility] Ht (in): 67 Wt (lb): 205 Ordering Physician: Yaakov Tolbert MD ([id number]) Attending/Referring Phys: Pest Technician Stephanie Scott RDCS Procedure CPT: Indications: NSTEMI stress cardiomyopathy Cardiac Hx: Technical Quality: Fair Contrast 1: Definity Total Dose (mL): 2 Contrast 2: Total Dose (mL): MEASUREMENTS (Male / Female) Normal Values 2D ECHO LV Diastolic Diameter PLAX 3.6 cm 4.2 - 5.9 / 3.9 - 5.3 cm LV Systolic Diameter PLAX 2.5 cm IVS Diastolic Thickness 1.4 cm 0.6 - 1.0 / 0.6 - 0.9 cm LVPW Diastolic Thickness 1.2 cm 0.6 - 1.0 / 0.6 - 0.9 cm LV Relative Wall Thickness 0.7 RV Internal Dim ED PLAX 3.4 cm LA Systolic Diameter LX 3.6 cm 3.0 - 4.0 / 2.7 - 3.8 cm LV Diastolic Volume MOD BP 67.9 cm??? 67 - 155 / 56 - 104 cm??? LV Systolic Volume MOD BP 22.5 cm??? 22 - 58 / 19 - 49 cm??? LV Ejection Fraction MOD BP 66.8 % >= 55 % LV Cardiac Index MOD BP 1833.9 cm???/min???m??? LV Diastolic Volume MOD 4C 70.6 cm??? LV Systolic Volume MOD 4C 20.7 cm??? LV Ejection Fraction MOD 4C 70.7 % LV Cardiac Index MOD 4C 2018.9 cm???/min???m??? LV Diastolic Length 4C 6.7 cm LV Systolic Length 4C 5.8 cm LV Diastolic Volume MOD 2C 58.3 cm??? LV Systolic Volume MOD 2C 16.9 cm??? LV Ejection Fraction MOD 2C 71.0 % LV Cardiac Index MOD 2C 1674.3 cm???/min???m??? LV Diastolic Length 2C 7.7 cm LV Systolic Length 2C 3.5 cm LA Volume 59.2 cm??? 18 - 58 / 22 - 52 cm??? LA Volume Index 27.8 cm???/m??? 16 - 28 cm???/m??? M-MODE Aortic Root Diameter MM 3.1 cm AV Cusp Separation MM 1.9 cm DOPPLER AV Peak Velocity 161.5 cm/s AV Peak Gradient 10.4 mmHg AI Peak Velocity 351.1 cm/s AI Peak Gradient 49.3 mmHg AI Pressure Half Time 413.9 ms MV Peak Velocity 162.8 cm/s MV Peak Gradient 10.6 mmHg MV Mean Velocity 79.2 cm/s MV Mean Gradient 3.1 mmHg MV Velocity Time Integral 36.5 cm MV Area PHT 2.4 cm??? Mitral E Point Velocity 123.8 cm/s Mitral A Point Velocity 88.4 cm/s Mitral E to A Ratio 1.4 MV Deceleration Time 312.3 ms TR Peak Velocity 231.6 cm/s TR Peak Gradient 21.4 mmHg Right Ventricular Systolic Press 25.9 mmHg FINDINGS Left Ventricle Left ventricular ejection fraction is estimated at 55-60 %. Small left ventricular cavity. Mild concentric LVH. No obvious regional wall motion abnormality appreciated Right Ventricle Normal RV size and systolic function Right Atrium Normal right atrial size. Left Atrium Mildly increased left atrial volume. Mitral Valve Bioprosthetic MV normal function with mean gradient of 3 mmhg. No mitral stenosis, regurgitation or prolapse. Aortic Valve Trileaflet aortic valve. Mild aortic regurgitation. Tricuspid Valve Structurally normal tricuspid valve. Mild tricuspid regurgitation. Pulmonic Valve Pulmonic valve not well visualized. No pulmonic regurgitation. Pericardium No pericardial effusion. Aorta Normal size aortic root and proximal ascending aorta. CONCLUSIONS Left ventricular ejection fraction is estimated at 55-60 %. Mild concentric LVH. No obvious regional wall motion abnormality appreciated. Normal LV size and systolic function Mild LA dilatation Bioprosthetic mitral valve, appears to be normally functioning Mild AI Previewed by: Dr Yaakov Tolbert (Electronically Signed) Final Date: 26 October 2023 16:54
--- NOTE | 2023-10-26 23:08 | P.PN ---
Subjective This is a pleasant 48 years old female with multiple medical problems. She is a patient of Dr. Carson East but she missed his visit with him after he dropped her care for leg payment, patient says that she got her insurance back and she willing to continue seeing Dr. East, staff contacted Dr. East which states he will see her tomorrow as he is not available today. Patient says she came because she was not feeling well for multiple medical problems, she is having nausea vomiting and diarrhea, she says she feels little sick to her stomach with some pain in the periumbilical area, has been going on for 2 weeks on and off, pain itself is nonradiating, nonspecific in character moderate in severity. However on examination her abdomen looks soft. Also patient reports diarrhea on and off for 2 weeks. She has history of Crohn disease. She states also she has been been a lot but no dysuria. She is complaining from palpitation and pain between her shoulder blades about 8/10 pain, nonradiating sharp pain with no splitting or relieving factor associated with some headache She denies smoking alcohol or drugs but she feels stressed because she lost her brother recently she denies suicidal or homicidal ideation. Vitals stable, BMP and lipase unremarkable, WBCs slightly elevated at 12,000, mild transaminitis. Troponin is elevated at 0.053 Urinalysis with moderate leukocyte esterase and moderate bacteria EKG showing normal sinus rhythm at [address]-T changes and QTC 450 Chest x-ray is negative for Acute process. 10/26/2023 Patient reports improvement in all of her symptoms, no chest pain, no vomiting or diarrhea, abdominal pain is better. No urinary symptoms. No coughing. No shortness of breath no other new complaints Cardiology started the patient on aspirin and heparin drip which will be finished tomorrow also losartan and metoprolol and echocardiogram showed preserved ejection fraction 55-60% and the patient will decide tomorrow with cardiology team whether to proceed with cardiac cath as inpatient or no, Patient gastrointestinal symptoms are improved, patient tolerates diet 75-100%. CT of the abdomen and pelvis with contrast is negative for acute process. No evidence of bowel obstruction CRP is normal 0.9 and ESR is mildly up 35 making inflammatory bowel disease very unlikely especially patient's symptoms has improved without anti-inflammatory treatment Review of systems CONSTITUTIONAL: No fever, no malaise, no fatigue. HEENT: No recent visual problems or hearing problems. Denied any sore throat. CARDIOVASCULAR: No orthopnea, PND, no palpitations, no syncope. PULMONARY: No shortness of breath, no cough, no hemoptysis. GENITOURINARY: Denies any burning micturition, frequency, or urgency. MUSCULOSKELETAL/RHEUMATOLOGICAL: Denies any joint pain, swelling, or any muscle pain. Discharge Plan Active Medications Generic Name Dose Route Start Last Admin Trade Name Lester PRN Reason Stop Dose Admin Acetaminophen 650 mg 10/24/23 19:13 10/26/23 22:08 Acetaminophen Tab 325 Mg Tab PO 650 mg Q6HR PRN Administration Fever and/ or Pain Aspirin 81 mg 10/25/23 18:15 10/26/23 08:37 Aspirin 81 Mg PO 81 mg DAILY [facility] Administration Atorvastatin Calcium 20 mg 10/25/23 18:15 10/26/23 08:24 Atorvastatin 20 Mg Tab PO Not Given DAILY [facility] Clonazepam 0.5 mg 10/25/23 21:00 10/26/23 21:21 Clonazepam 0.5 Mg Tab PO 0.5 mg BID [facility] Administration Heparin Sodium (Porcine) 0 unit 10/24/23 16:01 Heparin Sodium 1,000 Un/Ml (10ml Vl) IV PER PROTOCOL PRN Low PTT Protocol Heparin Sodium/Sodium Chloride 250 mls @ 9.95 mls/hr 10/24/23 16:15 10/26/23 13:38 25,000 unit/ Sodium Chloride IV 10.7 units/kg/hr .Q24H [facility] 9.95 mls/hr Administration Protocol 10.7 UNITS/KG/HR Ceftriaxone Sodium 1 gm/ 50 mls @ 100 mls/hr 10/25/23 11:00 10/26/23 08:37 Sodium Chloride IVPB 100 mls/hr Q24HR [facility] Administration Protocol Ketorolac Tromethamine 15 mg 10/24/23 16:01 Ketorolac 15 Mg/Ml 1 Ml Vial IVP 10/27/23 16:03 Q6HR PRN Moderate Pain (Scale 4 to 6) Loperamide HCl 2 mg 10/24/23 21:00 10/26/23 15:48 Loperamide 2 Mg Cap PO 2 mg QID PRN Administration Diarrhea Losartan Potassium 25 mg 10/25/23 16:46 10/26/23 08:37 Losartan 25 Mg Tab PO 25 mg DAILY [facility] Administration Metoprolol Tartrate 25 mg 10/25/23 21:00 10/26/23 21:22 Metoprolol Tartrate 25 Mg Tab PO 25 mg BID [facility] Administration Morphine Sulfate 4 mg 10/24/23 16:01 Morphine Sulfate 4 Mg/Ml Syringe IV Q4HR PRN Severe Pain (Scale 7 to 10) Naloxone HCl 0.2 mg 10/24/23 16:01 Naloxone 0.4 Mg/Ml 1 Ml Vial IV Q2M PRN Opioid Reversal Ondansetron HCl 4 mg 10/24/23 16:01 10/26/23 22:07 Ondansetron 4 Mg/2 Ml Vial IVP 4 mg Q8HR PRN Administration Nausea And Vomiting Pantoprazole Sodium 40 mg 10/25/23 09:00 10/26/23 08:37 Pantoprazole 40 Mg/10 Ml Vial IV 40 mg DAILY [facility] Administration Trazodone HCl 150 mg 10/26/23 01:05 10/26/23 21:22 Trazodone Hcl 50 Mg Tab PO 150 mg HS [facility] Administration Objective - Vital Signs Vital signs: Vital Signs Temp 99.3 F 10/26/23 08:00 Pulse 84 10/26/23 08:00 Resp 20 10/26/23 08:00 BP 147/78 10/26/23 08:00 Pulse Ox 97 10/26/23 08:00 FiO2 Intake & Output 10/25/23 10/26/23 10/26/23 18:59 06:59 18:59 Intake Total 311.03 1320 480 Balance 311.03 1320 480 Intake: Intake, IV Titration 193.03 Amount Heparin Sod,Pork in 0.45% 193.03 NaCl 25,000 unit In 0.45 % NaCl 1 250ml.bag @ 10.7 UNITS/KG/HR 9.95 mls/hr IV .Q24H [facility] Rx#: [id number] Oral 118 1320 480 Other: Voiding Method Toilet # Voids 2 1 - Exam GENERAL: The patient is alert and oriented x3, not in any acute distress. Well developed, well nourished. HEENT: Pupils are round and equally reacting to light. EOMI. No scleral icterus. No conjunctival pallor. Normocephalic, atraumatic. No pharyngeal erythema. No thyromegaly. CARDIOVASCULAR: S1 and S2 present. No murmurs, rubs, or gallops. PULMONARY: Chest is clear to auscultation, no wheezing , no crackles. ABDOMEN: Soft, nontender, nondistended, normoactive bowel sounds. No palpable organomegaly. MUSCULOSKELETAL: No joint swelling or deformity. EXTREMITIES: No cyanosis, clubbing, or pedal edema. NEUROLOGICAL: Gross neurological examination did not reveal any focal deficits. SKIN: No rashes. no petechiae. - Labs CBC & Chem 7: 10/25/23 03:05 10/25/23 03:05 Labs: Abnormal Lab Results - Last 24 Hours (Table) 10/25/23 10/26/23 Range/Units 03:05 07:33 ESR 35 H (0-20) mm/Hr APTT 47.1 H (22.0-30.0) sec Assessment and Plan Assessment: Elevated troponin suspicious for none STEMI and patient was started with heparin drip Possible acute urinary tract infection with symptoms of increased frequency Nausea vomiting and diarrhea could be reactive gastroenteritis, rule out Crohn's flareup History of from a cardiac disease Monitored valve prolapse History of seizure Hypertension, Hyperlipidemia History of rheumatoid arthritis Crohn's disease obesity with BMI of 32.1 bereavement with rah of family member Plan: Discontinue normal saline 75 mm per hour Continue Rocephin Follow-up culture patient tolerated that well surgical consult Continue with heparin drip Cardiology consult Labs and medication were reviewed.. Continue same treatment. Continue with symptomatic treatment. Resume home medication. Monitor labs and vitals. DVT and GI prophylaxis. Further recommendations as per clinical course of the patient DVT prophylaxis: heparin GI Prophylaxis: Pepcid PT/OT: Pending Prognosis is guarded Dr. Carson East will resume the care of the patient he was paged pending response, he was informed by staff
[2023-10-27] MEDS: ATORVASTATIN 20 MG TAB PO SCH (08:02)
[2023-10-27] MEDS: clonazePAM 0.5 MG TAB PO SCH ×2 (08:10→20:19)
[2023-10-27] MEDS: METOPROLOL TARTRATE 25 MG TAB PO SCH ×2 (08:10→20:19)
[2023-10-27] MEDS: LOSARTAN 25 MG TAB PO SCH (08:10)
[2023-10-27] MEDS: PANTOPRAZOLE 40 MG/10 ML VIAL IV SCH (08:10)
[2023-10-27] MEDS: ASPIRIN 81 MG PO SCH (08:10)
[2023-10-27] MEDS: lisinopriL 20 MG TAB PO SCH (08:25)
[2023-10-27 08:55] LABS: INR 1.1 (<1.2); Prothrombin Time 11.9 sec (10.0-12.5)
[2023-10-27] MEDS: LOPERAMIDE 2 MG CAP PO PRN ×2 (10:03→16:38)
[2023-10-27] MEDS: HEPARIN SOD,PORK IN 0.45% NACL 25,000 UNIT in 0.45% NACL 1 250ML.BAG IV SCH (11:14)
--- NOTE | 2023-10-27 11:39 | P.PN ---
Subjective Progress Note Date: 10/27/23 HISTORY OF PRESENTING ILLNESS 48-year-old female with multiple medical problems. Has a past medical history of severe mitral regurgitation and mild nonobstructive coronary artery disease diagnosed in 2019. At that time she had a surgical mitral valve replacement with mechanical valve. Since then she has been lost to follow-up and has not seen any mill hand. This time she present to the hospital because of worsening nausea, abdominal pain, GI upset and diarrhea. She does have history of Crohn's disease. Patient also reports that she has been going through significant emotional stress as her brother recently . On admission her ECG shows sinus rhythm with T-wave inversions in inferolateral leads, mild QTC prolongation at 450 ms She had elevation of troponin measuring at 0.5 with a flat pattern. Her creatinine was normal at 0.6. 10/27 Patient is seen today in follow-up. Patient is on heparin drip. She is complaining of nausea this morning no chest pain. She denies any history of SVT in the past. She does state that she has had minimal sleep over the past month. Patient was on lisinopril at home but she ran out and due to billing issue she was not able to follow-up with her PCP and has been out of medication for some time. Patient is also been off Coumadin as well. She states that she was previously on 5 mg daily and maintained therapeutic INR. Echocardiogram reveals EF of 55-60%, mild concentric left hypertrophy. No obvious wall motion abnormality. Surgical mitral valve appears to be normally functioning. Will PHYSICAL EXAMINATION Vital signs reviewed. Head: Normocephalic. Eyes: Sclerae nonicteric. Neck: Brisk carotid upstroke, no jugular venous distention. Lungs: Clear to auscultation. Heart: Regular rate and rhythm, S1-S2, no S3, no murmur or rub. Abdomen: Soft nontender, positive bowel sounds no organomegaly. Extremities: No edema, intact distal pulses. Neuro: Alert, oritented, no focal deficits ASSESSMENT Elevated troponin T-wave inversions in inferolateral leads and mild QTC prolonged History of mitral valve replacement with mechanical valve [address] Powell Mild CAD as of 2019 Nausea, vomiting, abdominal pain, diarrhea History of Crohn's disease Hypertension Dyslipidemia Morbid obesity PLAN Continue IV heparin drip until INR is therapeutic. Resume patient on Coumadin 5 mg daily, no pharmacy dosing Obtain INR in the morning Continue Lipitor 20 mg daily Continue metoprolol 25 mg twice a day Transition losartan to lisinopril 20 mg daily as she was previously on No plan for cardiac catheterization at this time Obtain hemoglobin A1c and lipid panel Nurse practitioner note has been reviewed, I agree with the documented findings and plan of care. Patient was seen and examined. Objective - Vital Signs Vital signs: Vital Signs Temp 98.1 F 10/27/23 04:00 Pulse 71 10/27/23 04:00 Resp 16 10/27/23 04:00 BP 105/67 10/27/23 04:00 Pulse Ox 98 10/27/23 04:00 FiO2 Intake & Output 10/26/23 10/27/23 10/27/23 18:59 06:59 18:59 Intake Total 1275.508 357 Balance 1275.508 357 Intake: Intake, IV Titration 197.508 Amount Heparin Sod,Pork in 0.45% 197.508 NaCl 25,000 unit In 0.45 % NaCl 1 250ml.bag @ 10.7 UNITS/KG/HR 9.95 mls/hr IV .Q24H [facility] Rx#: [id number] Oral 1078 357 Other: Voiding Method Toilet Toilet # Voids 2 1 - Labs CBC & Chem 7: 10/25/23 03:05 10/25/23 03:05 Labs: Abnormal Lab Results - Last 24 Hours (Table) 10/26/23 10/27/23 Range/Units 07:33 06:42 APTT 47.1 H 47.2 H (22.0-30.0) sec
--- NOTE | 2023-10-27 15:42 | P.PN ---
Subjective Progress Note Date: 10/27/23 CHIEF COMPLAINT: Abdominal pain HISTORY OF PRESENT ILLNESS: Patient presented with nausea, vomiting, abdominal pain and fevers. History of Crohn's disease. She takes Bentyl and Imodium at home. Last colonoscopy was over a year ago with evidence: Polyps per patient. She does have a family history of colon cancer. She's never had EGD. Patient currently denies any abdominal pain. She reports she is feeling better. She reports that she was able to eat today. She's had no further vomiting for a few days. She does report some nausea. She did have some diarrhea which she reports is chronic. Denies any abdominal pain. Denies any blood in the stools. Computed tomography scan abdomen and pelvis from yesterday with no acute findings. Colonic diverticulosis. Patient followed by cardiology for elevated troponin and does have IV heparin drip going. History of mitral valve replacement PHYSICAL EXAM: VITAL SIGNS: Reviewed. GENERAL: Well-developed in no acute distress. ABDOMEN: Soft. Nondistended. Nontender. NEUROLOGIC: Alert and oriented. Cranial nerves II through XII grossly intact. ASSESSMENT: 1. Abdominal pain with nausea and vomiting improved PLAN: -Continue regular diet -No surgical intervention planned at this time -Continue workup per cardiology service Physician Trim Machine Adjuster note has been reviewed by physician. Signing provider agrees with the documented findings, assessment, and plan of care. Objective - Vital Signs Vital signs: Vital Signs Temp 97.9 F 10/27/23 11:17 Pulse 69 10/27/23 11:17 Resp 16 10/27/23 11:17 BP 123/77 10/27/23 11:17 Pulse Ox 97 10/27/23 11:17 FiO2 Intake & Output 10/26/23 10/27/23 10/27/23 18:59 06:59 18:59 Intake Total 1275.508 597 934.92 Balance 1275.508 597 934.92 Intake: Intake, IV Titration 197.508 214.92 Amount Heparin Sod,Pork in 0.45% 197.508 214.92 NaCl 25,000 unit In 0.45 % NaCl 1 250ml.bag @ 10.7 UNITS/KG/HR 9.95 mls/hr IV .Q24H [facility] Rx#: [id number] Oral 1078 [id number] 720 Other: Voiding Method Toilet Toilet # Voids 2 2 1 # Bowel Movements 1 1 - Labs CBC & Chem 7: 10/25/23 03:05 10/25/23 03:05 Labs: Abnormal Lab Results - Last 24 Hours (Table) 10/27/23 Range/Units 06:42 APTT 47.2 H (22.0-30.0) sec
[2023-10-27] MEDS: ACETAMINOPHEN TAB 325 MG TAB PO PRN (16:36)
[2023-10-27] MEDS: ONDANSETRON 4 MG/2 ML VIAL IVP PRN (16:37)
[2023-10-27] MEDS ORDERED: WARFARIN 5 MG TAB PO SCH (18:00)
[2023-10-27] MEDS: traZODone HCL 50 MG TAB PO SCH (20:19)
[2023-10-27] MEDS: MORPHINE SULFATE 4 MG/ML SYRINGE IV PRN (20:22)
[2023-10-27] MEDS ORDERED: clonazePAM 0.5 MG TAB PO STA (21:46)
[2023-10-27] MEDS ORDERED: CHOLESTYRAMINE (WITH SUGAR) 4 GM PACKET PO PRN (21:47)
--- NOTE | 2023-10-28 00:34 | PN ---
PROGRESS NOTE SUBJECTIVE: This 48-year-old white female was switched over to co apparently for care. She had abdominal pelvic CT recently, showed no obstructive uropathy, colon diverticulosis, multiple prominent lymph nodes in the upper abdomen and aury hepatis 12 mm, which can be seen, normal anatomy. Echocardiogram recently showed ejection fraction 55% to 60%, LVH. She has mechanical mitral valve. She is seen by surgery as well as Cardiology, Dr. Johnson. ASSESSMENT: Elevated troponin, type 2 non-STEMI from stress cardiomyopathy debridement with loss of family member, Dr. Fajardo, cardiomyopathy, T-wave inversions in the inferior lateral with mild QTc prolongation, history of mitral valve repair, history of Crohn disease, nausea, vomiting, abdominal pain, diarrhea, hypertension, dyslipidemia, morbid obesity, IV heparin, aspirin, Lipitor, metoprolol, losartan, echo, IV heparin for another 48 hours. Cardiology talked about a heart catheterization. She did not want to have 1. Discussed with the patient current treatments. PROGNOSIS: Guarded. Risk factor modification. Please see further orders. MMODL / IJN: [id number] /
[2023-10-28] MEDS: ONDANSETRON 4 MG/2 ML VIAL IVP PRN (06:47)
[2023-10-28] MEDS: MORPHINE SULFATE 4 MG/ML SYRINGE IV PRN ×3 (06:47→20:06)
[2023-10-28 06:51] LABS: INR 1.1 (<1.2); Partial Thromboplastin Time 63.4 sec (22.0-30.0); Prothrombin Time 11.6 sec (10.0-12.5)
[2023-10-28] MEDS: METOPROLOL TARTRATE 25 MG TAB PO SCH ×2 (09:28→20:02)
[2023-10-28] MEDS: PANTOPRAZOLE 40 MG/10 ML VIAL IV SCH (09:29)
[2023-10-28] MEDS: ATORVASTATIN 20 MG TAB PO SCH (09:29)
[2023-10-28] MEDS: lisinopriL 20 MG TAB PO SCH (09:29)
[2023-10-28] MEDS: clonazePAM 1 MG TAB PO SCH ×2 (09:29→20:02)
[2023-10-28 09:42] LABS: Chol/HDL Ratio 3.33 Ratio; LDL Cholesterol,Calculated 78.4 mg/dL (0.0-131.0)
[2023-10-28] MEDS: LOPERAMIDE 2 MG CAP PO PRN (12:55)
--- NOTE | 2023-10-28 13:41 | P.PN ---
Subjective Progress Note Date: 10/28/23 HISTORY OF PRESENTING ILLNESS 48-year-old female with multiple medical problems. Has a past medical history of severe mitral regurgitation and mild nonobstructive coronary artery disease diagnosed in 2019. At that time she had a surgical mitral valve replacement with mechanical valve. Since then she has been lost to follow-up and has not seen any production designer. This time she present to the hospital because of worsening nausea, abdominal pain, GI upset and diarrhea. She does have history of Crohn's disease. Patient also reports that she has been going through significant emotional stress as her brother recently . On admission her ECG shows sinus rhythm with T-wave inversions in inferolateral leads, mild QTC prolongation at 450 ms She had elevation of troponin measuring at 0.5 with a flat pattern. Her creatinine was normal at 0.6. 10/27 Patient is seen today in follow-up. Patient is on heparin drip. She is complaining of nausea this morning no chest pain. She denies any history of SVT in the past. She does state that she has had minimal sleep over the past month. Patient was on lisinopril at home but she ran out and due to billing issue she was not able to follow-up with her PCP and has been out of medication for some time. Patient is also been off Coumadin as well. She states that she was previously on 5 mg daily and maintained therapeutic INR. Echocardiogram reveals EF of 55-60%, mild concentric left hypertrophy. No obvious wall motion abnormality. Surgical mitral valve appears to be normally functioning. 10/28 Patient is seen today in follow-up. Her INR today is 1.1. She's been maintained on heparin drip and continue Coumadin 5 mg daily. Heart rate has been in the 60s, blood pressure 114/76, pulse ox 97% on room air. A1c 5.3. Cholesterol 154, LDL 78, HDL 46, triglycerides 147. PHYSICAL EXAMINATION Vital signs reviewed. Head: Normocephalic. Eyes: Sclerae nonicteric. Lungs: Clear to auscultation. Heart: Regular rate and rhythm, S1-S2, no S3, no murmur or rub. Extremities: No edema, intact distal pulses. ASSESSMENT Elevated troponin, acute coronary syndrome ruled out T-wave inversions in inferolateral leads and mild QTC prolonged History of mitral valve replacement with mechanical valve [address] Powell Mild CAD as of 2019 Nausea, vomiting, abdominal pain, diarrhea History of Crohn's disease Hypertension Dyslipidemia Morbid obesity PLAN Continue IV heparin drip until INR is therapeutic. Resume patient on Coumadin 5 mg daily, no pharmacy dosing Obtain INR in the morning Continue Lipitor 20 mg daily Continue metoprolol 25 mg twice a day Continue lisinopril 20 mg daily as she was previously on No plan for cardiac catheterization at this time Nurse practitioner note has been reviewed, I agree with the documented findings and plan of care. Patient was seen and examined. Objective - Vital Signs Vital signs: Vital Signs Temp 98.3 F 10/28/23 08:00 Pulse 62 10/28/23 08:00 Resp 18 10/28/23 08:00 BP 120/76 10/28/23 08:00 Pulse Ox 97 10/28/23 08:00 FiO2 Intake & Output 10/27/23 10/28/23 10/28/23 18:59 06:59 18:59 Intake Total 1294.92 685.849 0 Balance 1294.92 685.849 0 Intake: Intake, IV Titration 214.92 195.849 Amount Heparin Sod,Pork in 0.45% 214.92 195.849 NaCl 25,000 unit In 0.45 % NaCl 1 250ml.bag @ 10.7 UNITS/KG/HR 9.95 mls/hr IV .Q24H [facility] Rx#: [id number] Oral 1080 490 0 Other: Voiding Method Toilet Toilet # Voids 1 # Bowel Movements 1 - Labs CBC & Chem 7: 10/25/23 03:05 10/25/23 03:05 Labs: Abnormal Lab Results - Last 24 Hours (Table) 10/27/23 10/28/23 Range/Units 17:26 05:45 APTT 63.4 H (22.0-30.0) sec D-Dimer 0.93 H (<0.60) mg/L FEU
[2023-10-28] MEDS: HEPARIN SOD,PORK IN 0.45% NACL 25,000 UNIT in 0.45% NACL 1 250ML.BAG IV SCH (17:23)
[2023-10-28] MEDS: FLUCONAZOLE 100 MG TAB PO SCH (18:50)
[2023-10-28] MEDS: traZODone HCL 50 MG TAB PO SCH (20:02)
[2023-10-28 21:23] LABS: Appearance,Urine Clear (Clear); Bilirubin,Urine Negative (Negative); Blood,Urine Negative (Negative); Color,Urine Light Yellow; Glucose,Urine (UA) Negative (Negative); Ketones,Urine Negative (Negative); Leukocyte Esterase,Urine Negative (Negative); Nitrite,Urine Negative (Negative); Protein,Urine Negative (Negative); Specific Gravity,Urine 1.016 (1.001-1.035); Urobilinogen,Urine <2.0 mg/dL (<2.0)
--- NOTE | 2023-10-28 23:17 | PN ---
PROGRESS NOTE SUBJECTIVE: Tiera Knox comes in the hospital for multiple reasons. She ran out of all of her home medications at home, etc. for many months. Blood pressure currently is 119/78, O2 99 on room air, temperature 98, pulse 67, respiratory rate [address] is essentially normal. She feels better now that she is back on her home medications and is on a heparin drip. No chest pain. No history of any SVT. Minimal sleep in the last month, sounds like the sleeping pill at home ran out, also had been on Coumadin as well, previous 5 mg a day. Echo shows 55% to 60% ejection fraction. Mitral valve in place. OBJECTIVE: HEART: S1, S2. LUNGS: Clear. GI: Soft. PSYCH: Fair mood and affect. NEUROLOGIC: Alert and oriented x3. Elevated troponin, T-wave inversions, prolonged QTc, mitral valve replacement, mild coronary artery disease, gastroenteritis improved. Crohn disease improved. Vaginitis due to fungal infection. Give Diflucan, Questran for diarrhea, dyslipidemia, obesity. Started her back on her Coumadin, Lipitor, metoprolol, lisinopril. No heart catheterization. A1c, lipid panel, probably discharge home, stable tomorrow. MMODL / IJN: [id number] /
[2023-10-29] MEDS: MORPHINE SULFATE 4 MG/ML SYRINGE IV PRN ×3 (06:54→20:31)
[2023-10-29 07:55] LABS: HCT 36.4 % (34.0-46.0); HGB 12.2 gm/dL (11.4-16.0); MCH 29.4 pg (25.0-35.0); MCHC 33.6 g/dL (31.0-37.0); MCV 87.5 fL (80.0-100.0); Mean Platelet Volume 7.3; Platelet Count 247 k/uL (150-450); RBC 4.16 m/uL (3.80-5.40); RDW 13.8 % (11.5-15.5); WBC 5.1 k/uL (3.8-10.6)
[2023-10-29 08:01] LABS: INR 1.1 (<1.2); Prothrombin Time 11.4 sec (10.0-12.5)
[2023-10-29 08:29] LABS: African American GFR (CKD) >90 (>60 ml/min/1.73 sqM); Anion Gap 9 mmol/L; Blood Urea Nitrogen 10 mg/dL (7-17); Calcium 8.1 mg/dL (8.4-10.2); Carbon Dioxide 24 mmol/L (22-30); Chloride 106 mmol/L (98-107); Glucose 82 mg/dL (74-99); Non-African American GFR(CKD) 89 (>60 ml/min/1.73 sqM); Potassium 3.8 mmol/L (3.5-5.1); Sodium 139 mmol/L (137-145)
[2023-10-29] MEDS: FLUCONAZOLE 100 MG TAB PO SCH (08:40)
[2023-10-29] MEDS: ATORVASTATIN 20 MG TAB PO SCH ×2 (08:40→11:05)
[2023-10-29] MEDS: LOPERAMIDE 2 MG CAP PO PRN (08:41)
[2023-10-29] MEDS: clonazePAM 1 MG TAB PO SCH ×2 (08:41→20:34)
[2023-10-29] MEDS: METOPROLOL TARTRATE 25 MG TAB PO SCH ×2 (08:41→20:34)
[2023-10-29] MEDS: lisinopriL 20 MG TAB PO SCH (08:41)
--- NOTE | 2023-10-29 10:18 | P.PN ---
Subjective Progress Note Date: 10/28/23 CHIEF COMPLAINT: Abdominal pain HISTORY OF PRESENT ILLNESS: Patient presented with nausea, vomiting, abdominal pain and fevers. Patient continues with nausea. She reports having diarrhea. She is interested in having an EGD completed. She's had no further episodes of vomiting Afebrile. PHYSICAL EXAM: VITAL SIGNS: Reviewed. GENERAL: Well-developed in no acute distress. ABDOMEN: Soft. Nondistended. Nontender. NEUROLOGIC: Alert and oriented. Cranial nerves II through XII grossly intact. ASSESSMENT: 1. Abdominal pain with nausea and vomiting PLAN: -Patient scheduled for EGD tomorrow, 10/29/[address] Toscano -Hold IV heparin in a.m. -Hold coumadin Physician Golf Course Designer note has been reviewed by physician. Signing provider agrees with the documented findings, assessment, and plan of care. Objective - Vital Signs Vital signs: Vital Signs Temp 98 F 10/28/23 12:00 Pulse 60 10/28/23 12:00 Resp 18 10/28/23 12:00 BP 114/76 10/28/23 12:00 Pulse Ox 97 10/28/23 12:00 FiO2 Intake & Output 10/27/23 10/28/23 10/28/23 18:59 06:59 18:59 Intake Total 1294.92 685.849 442 Balance 1294.92 685.849 442 Intake: Intake, IV Titration 214.92 195.849 Amount Heparin Sod,Pork in 0.45% 214.92 195.849 NaCl 25,000 unit In 0.45 % NaCl 1 250ml.bag @ 10.7 UNITS/KG/HR 9.95 mls/hr IV .Q24H [facility] Rx#: [id number] Oral 1080 270 706 Other: Voiding Method Toilet Toilet # Voids 1 # Bowel Movements 1 - Labs CBC & Chem 7: 10/29/23 06:35 10/29/23 06:35 Labs: Abnormal Lab Results - Last 24 Hours (Table) 10/27/23 10/28/23 Range/Units 17:26 05:45 APTT 63.4 H (22.0-30.0) sec D-Dimer 0.93 H (<0.60) mg/L FEU
--- NOTE | 2023-10-29 10:19 | P.PN ---
Subjective Progress Note Date: 10/29/23 CHIEF COMPLAINT: Abdominal pain HISTORY OF PRESENT ILLNESS: Patient presented with nausea, vomiting, abdominal pain and fevers. Patient continues with nausea and complains of heartburn. She reports having diarrhea. Afebrile. WBC 5.1 Hgb 12.2 INR 1.1 PHYSICAL EXAM: VITAL SIGNS: Reviewed. GENERAL: Well-developed in no acute distress. ABDOMEN: Soft. Nondistended. Nontender. ASSESSMENT: 1. Abdominal pain with nausea and vomiting PLAN: -Patient scheduled for EGD today with Dr. Toscano Physician Clerical Methods Analyst note has been reviewed by physician. Signing provider agrees with the documented findings, assessment, and plan of care. Objective - Vital Signs Vital signs: Vital Signs Temp 97.9 F 10/29/23 03:53 Pulse 62 10/29/23 03:53 Resp 19 10/29/23 03:53 BP 96/53 10/29/23 03:53 Pulse Ox 94 L 10/29/23 03:53 FiO2 Intake & Output 10/28/23 10/29/23 10/29/23 18:59 06:59 18:59 Intake Total 560 Output Total 300 Balance 560 -300 Intake: Oral 560 Output: Urine 300 Other: Voiding Method Toilet Toilet # Voids 3 - Labs CBC & Chem 7: 10/29/23 06:35 10/29/23 06:35 Labs: Abnormal Lab Results - Last 24 Hours (Table) 10/29/23 10/29/23 Range/Units 06:35 06:35 APTT 58.5 H (22.0-30.0) sec Calcium 8.1 L (8.4-10.2) mg/dL
[2023-10-29] MEDS: PANTOPRAZOLE 40 MG/10 ML VIAL IV SCH (11:05)
[2023-10-29 11:27] VITALS: BMI 32.1
--- NOTE | 2023-10-29 12:06 | P.PN ---
Subjective Progress Note Date: 10/29/23 HISTORY OF PRESENTING ILLNESS 48-year-old female with multiple medical problems. Has a past medical history of severe mitral regurgitation and mild nonobstructive coronary artery disease diagnosed in 2019. At that time she had a surgical mitral valve replacement with mechanical valve. Since then she has been lost to follow-up and has not seen any loss control technician. This time she present to the hospital because of worsening nausea, abdominal pain, GI upset and diarrhea. She does have history of Crohn's disease. Patient also reports that she has been going through significant emotional stress as her brother recently . On admission her ECG shows sinus rhythm with T-wave inversions in inferolateral leads, mild QTC prolongation at 450 ms She had elevation of troponin measuring at 0.5 with a flat pattern. Her creatinine was normal at 0.6. 10/27 Patient is seen today in follow-up. Patient is on heparin drip. She is complaining of nausea this morning no chest pain. She denies any history of SVT in the past. She does state that she has had minimal sleep over the past month. Patient was on lisinopril at home but she ran out and due to billing issue she was not able to follow-up with her PCP and has been out of medication for some time. Patient is also been off Coumadin as well. She states that she was previously on 5 mg daily and maintained therapeutic INR. Echocardiogram reveals EF of 55-60%, mild concentric left hypertrophy. No obvious wall motion abnormality. Surgical mitral valve appears to be normally functioning. 10/28 Patient is seen today in follow-up. Her INR today is 1.1. She's been maintained on heparin drip and continue Coumadin 5 mg daily. Heart rate has been in the 60s, blood pressure 114/76, pulse ox 97% on room air. A1c 5.3. Cholesterol 154, LDL 78, HDL 46, triglycerides 147. 10/29 Patient is seen today in follow-up. INR is 1.1. Patient did receive Coumadin 5 mg last evening. She states that in the past she was on 7.54 initial treatment and then transition to 5 mg which seemed to maintain her INR appropriately. Goal for INR for her is 33 0.5. Patient is complaining of diarrhea today. She is nothing by mouth after midnight with plan for EGD this afternoon with general surgery. PHYSICAL EXAMINATION Vital signs reviewed. Head: Normocephalic. Eyes: Sclerae nonicteric. Lungs: Clear to auscultation. Heart: Regular rate and rhythm, S1-S2, no S3, no murmur or rub. Extremities: No edema, intact distal pulses. ASSESSMENT Elevated troponin, likely demand ischemia T-wave inversions in inferolateral leads and mild QTC prolonged History of mitral valve replacement with mechanical valve [address] Powell Mild CAD as of 2019 Nausea, vomiting, abdominal pain, diarrhea History of Crohn's disease Hypertension Dyslipidemia Morbid obesity PLAN Continue IV heparin drip until INR is therapeutic. Continue patient on Coumadin 7.5 mg daily, no pharmacy dosing Obtain INR in the morning, goal is 33.5. No discharge until patient's INR is at therapeutic level. Continue Lipitor 20 mg daily Continue metoprolol 25 mg twice a day Continue lisinopril 20 mg daily as she was previously on No plan for cardiac catheterization at this time Nurse practitioner note has been reviewed, I agree with the documented findings and plan of care. Patient was seen and examined. Objective - Vital Signs Vital signs: Vital Signs Temp 97.9 F 10/29/23 03:53 Pulse 62 10/29/23 03:53 Resp 19 10/29/23 03:53 BP 96/53 10/29/23 03:53 Pulse Ox 94 L 10/29/23 03:53 FiO2 Intake & Output 10/28/23 10/29/23 10/29/23 18:59 06:59 18:59 Intake Total 560 Output Total 300 Balance 560 -300 Intake: Oral 560 Output: Urine 300 Other: Voiding Method Toilet Toilet # Voids 3 - Labs CBC & Chem 7: 10/29/23 06:35 10/29/23 06:35 Labs: Abnormal Lab Results - Last 24 Hours (Table) 10/29/23 Range/Units 06:35 APTT 58.5 H (22.0-30.0) sec
[2023-10-29] MEDS ORDERED: PROPOFOL 10 MG/ML 20 ML VIAL IV ONE (14:09)
[2023-10-29] MEDS ORDERED: IV FLUID CONTINUATION 1,000 ML IV ONE (14:18)
--- NOTE | 2023-10-29 14:23 | P.OP ---
Date of Procedure: 10/29/23 Preoperative Diagnosis: Gastritis Postoperative Diagnosis: Mild antral gastritis Procedure(s) Performed: EGD Anesthesia: MAC Surgeon: Len Toscano Pathology: other (Antrum) Condition: stable Disposition: PACU Description of Procedure: The patient's placed on the endoscopy table in the lateral position. She received IV sedation. The gastro-/oropharynx passed in the esophagus and stomach. Scope was placed through the pylorus. The first and second portion of the duodenum appeared normal. The scope was then brought back the antrum this was mildly inflamed. A biopsy was performed. The scope was then retroflexed and the remainder of the stomach appeared normal. The GE junction was at 40 cm. The distal esophagus appeared normal. The proximal esophagus appeared normal. Scope withdrawn for patient.
[2023-10-29] MEDS: HEPARIN SOD,PORK IN 0.45% NACL 25,000 UNIT in 0.45% NACL 1 250ML.BAG IV SCH ×2 (16:16→21:40)
[2023-10-29] MEDS ORDERED: WARFARIN 7.5 MG TAB PO SCH (18:00)
[2023-10-29] MEDS: traZODone HCL 50 MG TAB PO SCH (20:33)
--- NOTE | 2023-10-30 02:20 | PN ---
PROGRESS NOTE SUBJECTIVE: This is a 48-year-old white female, remains on for vaginitis, heparin subcu until Coumadin has been recontinued, hypertension, dyslipidemia, UTI. OBJECTIVE: VITAL SIGNS: Blood pressure is 114/71, O2 is 98% on room air, pulse 57, temp 98. CARDIOVASCULAR: S1, S2. LUNGS: Transmitted upper sounds. MUSCULOSKELETAL: Palpation of lumbar spine. Negative Homans. ASSESSMENT: UTI, Coumadin treatment, history of DVT, PE, hypertension, COPD. Prognosis guarded. Please see further orders with Coumadin INR to get over to prior to discharge. Continue on heparin while she is on Coumadin. Prognosis guarded. UTI with Rocephin, wait for urine culture. MMODL / IJN: [id number] /
[2023-10-30] MEDS: MORPHINE SULFATE 4 MG/ML SYRINGE IV PRN ×5 (04:58→23:39)
[2023-10-30 04:59] LABS: INR 1.2 (<1.2); Partial Thromboplastin Time 76.5 sec (22.0-30.0); Prothrombin Time 12.6 sec (10.0-12.5)
[2023-10-30] MEDS: ATORVASTATIN 20 MG TAB PO SCH (08:59)
[2023-10-30] MEDS: lisinopriL 20 MG TAB PO SCH (09:03)
[2023-10-30] MEDS: clonazePAM 1 MG TAB PO SCH ×2 (09:03→21:06)
[2023-10-30] MEDS: PANTOPRAZOLE 40 MG/10 ML VIAL IV SCH (09:03)
[2023-10-30] MEDS: METOPROLOL TARTRATE 25 MG TAB PO SCH ×2 (09:03→21:06)
--- NOTE | 2023-10-30 09:03 | CT ---
EXAMINATION TYPE: CT lumbar spine wo con DATE OF EXAM: 10/30/2023 8:52 AM COMPARISON: None HISTORY: Lumbar neuritis CT DLP: 1101.4 mGycm Automated exposure control for dose reduction was used. Unenhanced CT of the lumbar spine was performed. Bone and soft tissue window settings are submitted as well as coronal and sagittal reconstructions. There are 5 lumbar-type vertebra. Lumbar spine shows satisfactory alignment without evidence of acute fracture or dislocation. Vertebral body heights and disc space heights are fairly well preserved. Th ere is mild multilevel anterior and lateral spurring seen. No large posterior disc herniations are pr esent on the sagittal images. Axial images at L2-L3 and L3-L4 levels show [id number] facet arthropathy bilaterally with sligh t effacement of the posterior lateral thecal sac. Axial images at L4-L5 level show moderate facet arthropathy bilaterally. There is mild broad-based po sterior disc protrusion minimally effacing the anterior thecal sac. Axial images at L5-S1 level show moderate to advanced facet arthropathy. There is focal left paracent ral spur disc complex on axial images 67 and 68. Spinal canal is fairly well maintained. There is mild to moderate left-sided neural foraminal narrowing at L3-L4 through the L5-S1 levels and mild right-sided neural foraminal narrowing at L3-L4 level on sagittal images. Paraspinal muscle bulk is maintained. Some colonic diverticula are partially imaged. Mild calcified p laque of the overlying abdominal aorta is seen. IMPRESSION: Multilevel degenerative changes in the mid to lower lumbar spine as detailed above.
[2023-10-30] MEDS: LOPERAMIDE 2 MG CAP PO PRN ×3 (09:04→21:11)
[2023-10-30] MEDS: FLUCONAZOLE 100 MG TAB PO SCH (09:04)
--- NOTE | 2023-10-30 10:49 | P.PN ---
Subjective Progress Note Date: 10/30/23 CHIEF COMPLAINT: Abdominal pain HISTORY OF PRESENT ILLNESS: Patient is status post EGD with results showing mild antral gastritis. Patient reports nausea. But she is tolerating diet. Abdominal pain improved. Vomiting resolved. She continues to have her chronic diarrhea. But has been taking Imodium. Patient reports history of Crohns disease. PHYSICAL EXAM: VITAL SIGNS: Reviewed. GENERAL: Well-developed in no acute distress. ABDOMEN: Soft. Nondistended. Nontender. ASSESSMENT: 1. Abdominal pain with nausea and vomiting 2. Gastritis PLAN: -Continue Protonix -Continue regular diet -Okay to resume Coumadin and IV heparin Physician Chop Saw Operator note has been reviewed by physician. Signing provider agrees with the documented findings, assessment, and plan of care. Objective - Vital Signs Vital signs: Vital Signs Temp 98.0 F 10/30/23 09:14 Pulse 71 10/30/23 09:14 Resp 16 10/30/23 09:14 BP 133/77 10/30/23 09:14 Pulse Ox 100 10/30/23 09:14 FiO2 Intake & Output 10/29/23 10/30/23 10/30/23 18:59 06:59 18:59 Intake Total 340 20 Balance 340 20 Weight 92.986 kg Intake: IV 100 20 Invasive Line 2 20 Oral 240 0 Other: Voiding Method Toilet Toilet Toilet # Voids 3 0 - Labs CBC & Chem 7: 10/29/23 06:35 10/29/23 06:35 Labs: Abnormal Lab Results - Last 24 Hours (Table) 10/29/23 10/30/23 Range/Units 21:26 03:11 PT 12.6 H (10.0-12.5) sec INR 1.2 H (<1.2) APTT 41.7 H 76.5 H (22.0-30.0) sec
[2023-10-30] MEDS ORDERED: HYDROCORTISONE 1% CREAM 30 GM TUBE TOPICAL PRN (12:08)
--- NOTE | 2023-10-30 12:13 | P.PN ---
Subjective Progress Note Date: 10/30/23 HISTORY OF PRESENTING ILLNESS 48-year-old female with multiple medical problems. Has a past medical history of severe mitral regurgitation and mild nonobstructive coronary artery disease diagnosed in 2019. At that time she had a surgical mitral valve replacement with mechanical valve. Since then she has been lost to follow-up and has not seen any correspondence transcriber. This time she present to the hospital because of worsening nausea, abdominal pain, GI upset and diarrhea. She does have history of Crohn's disease. Patient also reports that she has been going through significant emotional stress as her brother recently . On admission her ECG shows sinus rhythm with T-wave inversions in inferolateral leads, mild QTC prolongation at 450 ms She had elevation of troponin measuring at 0.5 with a flat pattern. Her creatinine was normal at 0.6. 10/27 Patient is seen today in follow-up. Patient is on heparin drip. She is complaining of nausea this morning no chest pain. She denies any history of SVT in the past. She does state that she has had minimal sleep over the past month. Patient was on lisinopril at home but she ran out and due to billing issue she was not able to follow-up with her PCP and has been out of medication for some time. Patient is also been off Coumadin as well. She states that she was previously on 5 mg daily and maintained therapeutic INR. Echocardiogram reveals EF of 55-60%, mild concentric left hypertrophy. No obvious wall motion abnormality. Surgical mitral valve appears to be normally functioning. 10/28 Patient is seen today in follow-up. Her INR today is 1.1. She's been maintained on heparin drip and continue Coumadin 5 mg daily. Heart rate has been in the 60s, blood pressure 114/76, pulse ox 97% on room air. A1c 5.3. Cholesterol 154, LDL 78, HDL 46, triglycerides 147. 10/29 Patient is seen today in follow-up. INR is 1.1. Patient did receive Coumadin 5 mg last evening. She states that in the past she was on 7.54 initial treatment and then transition to 5 mg which seemed to maintain her INR appropriately. Goal for INR for her is 33 0.5. Patient is complaining of diarrhea today. She is nothing by mouth after midnight with plan for EGD this afternoon with general surgery. 10/30 Patient underwent EGD with Dr. Toscano which revealed mild antral gastritis. Patient has been continued on heparin and Coumadin 7.5 mg daily with goal of INR of 33 0.5. No new concerns. PHYSICAL EXAMINATION Vital signs reviewed. Head: Normocephalic. Eyes: Sclerae nonicteric. Lungs: Clear to auscultation. Heart: Regular rate and rhythm, S1-S2, no S3, no murmur or rub. Extremities: No edema, intact distal pulses. ASSESSMENT Elevated troponin, likely demand ischemia T-wave inversions in inferolateral leads and mild QTC prolonged History of mitral valve replacement with mechanical valve [address] Powell Mild CAD as of 2019 Nausea, vomiting, abdominal pain, diarrhea History of Crohn's disease Hypertension Dyslipidemia Morbid obesity PLAN Continue IV heparin drip until INR is therapeutic. Continue patient on Coumadin 7.5 mg daily, no pharmacy dosing Obtain INR in the morning, goal is 33.5. No discharge until patient's INR is at therapeutic level. Continue Lipitor 20 mg daily Continue metoprolol 25 mg twice a day Continue lisinopril 20 mg daily as she was previously on No plan for cardiac catheterization at this time Nurse practitioner note has been reviewed, I agree with the documented findings and plan of care. Patient was seen and examined. Objective - Vital Signs Vital signs: Vital Signs Temp 98.0 F 10/30/23 09:14 Pulse 71 10/30/23 09:14 Resp 16 10/30/23 09:14 BP 133/77 10/30/23 09:14 Pulse Ox 100 10/30/23 09:14 FiO2 Intake & Output 10/29/23 10/30/23 10/30/23 18:59 06:59 18:59 Intake Total 340 20 Balance 340 20 Weight 92.986 kg Intake: IV 100 20 Invasive Line 2 20 Oral 240 0 Other: Voiding Method Toilet Toilet Toilet # Voids 3 0 - Labs CBC & Chem 7: 10/29/23 06:35 10/29/23 06:35 Labs: Abnormal Lab Results - Last 24 Hours (Table) 10/29/23 10/30/23 Range/Units 21:26 03:11 PT 12.6 H (10.0-12.5) sec INR 1.2 H (<1.2) APTT 41.7 H 76.5 H (22.0-30.0) sec
[2023-10-30] MEDS: PANTOPRAZOLE 40 MG TABLET PO SCH (16:58)
[2023-10-30] MEDS: HEPARIN SOD,PORK IN 0.45% NACL 25,000 UNIT in 0.45% NACL 1 250ML.BAG IV SCH (16:59)
[2023-10-30] MEDS: METOCLOPRAMIDE 5 MG TAB PO SCH ×2 (17:00→21:06)
[2023-10-30] MEDS ORDERED: WARFARIN 7.5 MG TAB PO ONE (18:00)
[2023-10-30] MEDS: traZODone HCL 50 MG TAB PO SCH (21:05)
--- NOTE | 2023-10-31 06:26 | PN ---
PROGRESS NOTE 48-year-old white female. We are going to discharge her home since her INR is a little bit more therapeutic. It is up to 1.2 from 1.1. She is getting 7.5 of Coumadin every day. Hemoglobin is 12.2. She was treated for UTI when she came in. No urine culture has been done, but the repeat urine is negative. Since the INR is more therapeutic, she can go home. Her home medications have been restarted. She is on oral PPIs for nausea and Reglan, Diflucan for vaginitis. Medications have all been reviewed. Possibly send her home as soon as possible. I think she will be able to go home as she is improving. History of mitral valve prolapse, congestive heart failure, COPD, pulmonary hypertension. Please see further orders. MMODL / IJN: [id number] /
[2023-10-31] MEDS: METOCLOPRAMIDE 5 MG TAB PO SCH ×4 (06:46→20:39)
[2023-10-31] MEDS: PANTOPRAZOLE 40 MG TABLET PO SCH ×2 (06:46→16:43)
[2023-10-31] MEDS: MORPHINE SULFATE 4 MG/ML SYRINGE IV PRN ×4 (06:48→20:46)
[2023-10-31] MEDS: FLUCONAZOLE 100 MG TAB PO SCH (08:32)
[2023-10-31] MEDS: clonazePAM 1 MG TAB PO SCH ×2 (08:32→20:39)
[2023-10-31] MEDS: ATORVASTATIN 20 MG TAB PO SCH (08:32)
[2023-10-31] MEDS: LOPERAMIDE 2 MG CAP PO PRN ×2 (08:32→15:28)
[2023-10-31 08:33] LABS: INR 2.1 (<1.2); Partial Thromboplastin Time 98.3 sec (22.0-30.0); Prothrombin Time 21.1 sec (10.0-12.5)
[2023-10-31] MEDS: METOPROLOL TARTRATE 25 MG TAB PO SCH ×2 (08:33→20:39)
--- NOTE | 2023-10-31 10:25 | P.PN ---
Subjective Progress Note Date: 10/31/23 (Surgery) Objective - Vital Signs Vital signs: Vital Signs Temp 98.0 F 10/31/23 08:38 Pulse 63 10/31/23 08:38 Resp 16 10/31/23 08:38 BP 92/52 10/31/23 08:38 Pulse Ox 98 10/31/23 08:38 FiO2 Intake & Output 10/30/23 10/31/23 10/31/23 18:59 06:59 18:59 Intake Total 430.834 0 186.818 Balance 430.834 0 186.818 Intake: IV 20 Invasive Line 2 20 Intake, IV Titration 230.834 186.818 Amount Heparin Sod,Pork in 0.45% 230.834 186.818 NaCl 25,000 unit In 0.45 % NaCl 1 250ml.bag @ 10.7 UNITS/KG/HR 9.95 mls/hr IV .Q24H [facility] Rx#: [id number] Oral 180 0 Other: Voiding Method Toilet Toilet Toilet # Voids 1 2 # Bowel Movements 1 - Labs CBC & Chem 7: 10/29/23 06:35 10/29/23 06:35 Labs: Abnormal Lab Results - Last 24 Hours (Table) 10/31/23 Range/Units 07:29 PT 21.1 H (10.0-12.5) sec INR 2.1 H (<1.2) APTT 98.3 H (22.0-30.0) sec Assessment and Plan Assessment: CHIEF COMPLAINT: Abdominal pain HISTORY OF PRESENT ILLNESS: Patient is status post EGD with results showing mild antral gastritis. Patient reports nausea. But she is tolerating diet. Abdominal pain improved. Vomiting resolved. She continues to have her chronic diarrhea. But has been taking Imodium. Patient reports history of Crohns disease. PHYSICAL EXAM: VITAL SIGNS: Reviewed. GENERAL: Well-developed in no acute distress. ABDOMEN: Soft. Nondistended. Nontender. ASSESSMENT: 1. Abdominal pain with nausea and vomiting 2. Gastritis PLAN: -Continue Protonix -Continue regular diet -Okay to resume Coumadin and IV heparin -No surgical interventions
[2023-10-31] MEDS: lisinopriL 20 MG TAB PO SCH (11:26)
--- NOTE | 2023-10-31 13:10 | P.PN ---
Subjective Progress Note Date: 10/31/23 The patient is a 48-year-old female with multiple comorbid conditions who presented to the hospital with nausea and abdominal discomfort. She has a history of Crohn's disease. Cardiology was consulted as the patient has a history of a mechanical valve replacement and was subtherapeutic on her INR. The patient had her surgery completed in 2019, however has not followed up regularly with a gaggerman thereafter. Patient was interviewed and examined resting comfortably in bed. She denies any dyspnea or orthopnea. No chest pain. GENERAL: Well-appearing, well-nourished and in no acute distress. NECK: Supple without JVD or thyromegaly. LUNGS: Breath sounds clear to auscultation bilaterally. Respiration equal and unlabored. No wheezes, rales or rhonchi. HEART: Regular rate and rhythm without murmurs, rubs or gallops. S1 and S2 heard. EXTREMITIES: Normal range of motion, no edema. No clubbing or cyanosis. Peripheral pulses intact and strong. TELEMETRY: Sinus rhythm overnight. No reported arrhythmias IMPRESSION: Elevated troponin, likely demand ischemia T-wave inversions in inferolateral leads and mild QTC prolonged History of mitral valve replacement with mechanical valve [address] Powell Mild CAD as of 2019 Nausea, vomiting, abdominal pain, diarrhea History of Crohn's disease Hypertension Dyslipidemia Morbid obesity PLAN: Continue IV heparin until INR is therapeutic at 3-3.5 Agree with warfarin 5 mg dosing tonight Patient may be discharged for outpatient follow-up once INR is therapeutic I am dictating on behalf of Dr Christopher Tucker's history/physical and assessment/pl an. Objective - Vital Signs Vital signs: Vital Signs Temp 98.2 F 10/31/23 11:24 Pulse 68 10/31/23 11:24 Resp 16 10/31/23 11:24 BP 121/90 10/31/23 11:24 Pulse Ox 97 10/31/23 11:24 FiO2 Intake & Output 10/30/23 10/31/23 10/31/23 18:59 06:59 18:59 Intake Total 430.834 0 186.818 Balance 430.834 0 186.818 Intake: IV 20 Invasive Line 2 20 Intake, IV Titration 230.834 186.818 Amount Heparin Sod,Pork in 0.45% 230.834 186.818 NaCl 25,000 unit In 0.45 % NaCl 1 250ml.bag @ 10.7 UNITS/KG/HR 9.95 mls/hr IV .Q24H [facility] Rx#: [id number] Oral 180 0 Other: Voiding Method Toilet Toilet Toilet # Voids 1 2 # Bowel Movements 1 - Labs CBC & Chem 7: 10/29/23 06:35 10/29/23 06:35 Labs: Abnormal Lab Results - Last 24 Hours (Table) 10/31/23 Range/Units 07:29 PT 21.1 H (10.0-12.5) sec INR 2.1 H (<1.2) APTT 98.3 H (22.0-30.0) sec
[2023-10-31] MEDS: HEPARIN SOD,PORK IN 0.45% NACL 25,000 UNIT in 0.45% NACL 1 250ML.BAG IV SCH (14:21)
[2023-10-31] MEDS ORDERED: LACTULOSE 20 GM/30 ML CUP PO PRN (15:37)
[2023-10-31] MEDS ORDERED: bisacodyL 5 MG TABLET.DR PO STA (15:37)
[2023-10-31] MEDS: WARFARIN 5 MG TAB PO SCH (16:43)
--- NOTE | 2023-10-31 19:13 | PN ---
PROGRESS NOTE SUBJECTIVE: A 48-year-old white female. Waiting for INR to improve. Blood pressure is stable. Vital signs are stable. OBJECTIVE: VITAL SIGNS: Temp 98.2, pulse 68, respiratory rate 16 to 18, blood pressure 121/90, O2 sat 97% on room air. LABORATORY DATA: INR is 2.1. PLAN: She possibly could go home today if she is doing better. Follow up in the next 24 to 48 hours in the office. Prognosis guarded. Continue current treatment. Please see further orders. MMODL / IJN: [id number] /
[2023-10-31] MEDS: traZODone HCL 50 MG TAB PO SCH (20:39)
[2023-10-31 20:49] VITALS: RESP 18
[2023-11-01] MEDS: MORPHINE SULFATE 4 MG/ML SYRINGE IV PRN ×3 (02:25→13:50)
[2023-11-01] MEDS: METOCLOPRAMIDE 5 MG TAB PO SCH ×2 (06:11→11:37)
[2023-11-01] MEDS: PANTOPRAZOLE 40 MG TABLET PO SCH (06:11)
[2023-11-01] MEDS: FLUCONAZOLE 100 MG TAB PO SCH (09:02)
[2023-11-01] MEDS: lisinopriL 20 MG TAB PO SCH (09:02)
[2023-11-01] MEDS: ATORVASTATIN 20 MG TAB PO SCH (09:03)
[2023-11-01] MEDS: METOPROLOL TARTRATE 25 MG TAB PO SCH (09:03)
[2023-11-01] MEDS: clonazePAM 1 MG TAB PO SCH (09:03)
[2023-11-01] MEDS: LOPERAMIDE 2 MG CAP PO PRN (09:12)
[2023-11-01 10:00] LABS: Prothrombin Time 29.8 sec (10.0-12.5)
--- NOTE | 2023-11-01 10:52 | P.PN ---
Objective - Vital Signs Vital signs: Vital Signs Temp 98.1 F 11/01/23 08:00 Pulse 69 11/01/23 08:00 Resp 18 11/01/23 08:00 BP 144/67 11/01/23 08:00 Pulse Ox 98 11/01/23 08:00 FiO2 Intake & Output 10/31/23 11/01/23 11/01/23 18:59 06:59 18:59 Intake Total 294.662 108.755 236 Output Total 3 403 3 Balance 291.662 -294.245 233 Intake: Intake, IV Titration 294.662 108.755 Amount Heparin Sod,Pork in 0.45% 244.662 108.755 NaCl 25,000 unit In 0.45 % NaCl 1 250ml.bag @ 10.7 UNITS/KG/HR 9.95 mls/hr IV .Q24H [facility] Rx#: [id number] cefTRIAXone 1 gm In 50 Sodium Chloride 0.9% 50 ml @ 100 mls/hr IVPB Q24HR [facility] Rx#:[id number] Oral 0 236 Output: Urine 400 Stool 3 3 3 Other: Voiding Method Toilet Toilet Toilet # Voids 2 - Labs CBC & Chem 7: 10/29/23 06:35 10/29/23 06:35 Labs: Abnormal Lab Results - Last 24 Hours (Table) 10/31/23 11/01/23 11/01/23 Range/Units 14:29 01:45 09:26 PT 29.8 H (10.0-12.5) sec INR 3.0 H (<1.2) APTT 89.8 H 74.5 H (22.0-30.0) sec Assessment and Plan Assessment: Patient appears stable. Her abdomen is soft. She is tolerating a diet. She's had some mild nausea. She'll continue to have supportive care.
[2023-11-01 10:59] VITALS: TEMP 98.1
[2023-11-01] MEDS ORDERED: HYDROcodone/APAP 5-325MG 1 EACH TAB PO PRN (14:03)
--- NOTE | 2023-11-01 14:08 | P.PN ---
Subjective Progress Note Date: 11/01/23 This is Pito Hernandez NP, I'm dictating on behalf of Dr. Tucker's H&P and A&P. Patient was interviewed and examined. Patient is a pleasant 48-year-old female who presented to hospital with nausea and abdominal discomfort. Patient has history of Crohn's disease, and cardiology was consulted secondary to a mechanical valve replacement and was found to be subtherapeutic on her INR. Patient has not really followed up with a dedicated intermodal truck driver after having her surgery. Today the patient reports that she is feeling okay. She has no complaints at this time. Patient's INR was noted to be therapeutic at 3. Now that the patient is therapeutic on her INR, from a cardiology standpoint she can be discharged. GENERAL: Well-appearing, well-nourished and in no acute distress. NECK: Supple without JVD or thyromegaly. LUNGS: Breath sounds clear to auscultation bilaterally. Respiration equal and unlabored. No wheezes, rales or rhonchi. HEART: Regular rate and rhythm without murmurs, rubs or gallops. S1 and S2 heard. EXTREMITIES: Normal range of motion, no edema. No clubbing or cyanosis. Peripheral pulses intact and strong. VITALS: Temp 98.1, pulse 69, respirations 18, blood pressure 144/67, O2 saturation 98% on room air TELEMETRY: Normal sinus rhythm LABS: PTT 29.8, INR 3.0, APTT 74.5 IMPRESSION: 1. Elevated troponin, demand ischemia 2. T-wave inversions and mild QTC prolongation 3. Mild CAD 4. Mitral valve replacement with mechanical valve in 2019 5. Hypertension 6. Dyslipidemia 7. Morbid obesity PLAN: Patient's INR came back at 3. Discontinue heparin drip. Patient may be discharged home on current dose of warfarin. Patient should follow-up with her dedicated intermodal truck driver on a regular basis. Thank you for allowing us to participate in the care of this patient. Objective - Vital Signs Vital signs: Vital Signs Temp 98.1 F 11/01/23 08:00 Pulse 59 L 11/01/23 12:00 Resp 18 11/01/23 12:00 BP 116/61 11/01/23 12:00 Pulse Ox 98 11/01/23 12:00 FiO2 Intake & Output 10/31/23 11/01/2311/01/24 18:59 06:59 18:59 Intake Total 294.662 108.755 354 Output Total 3 403 3 Balance 291.662 -294.245 351 Intake: Intake, IV Titration 294.662 108.755 Amount Heparin Sod,Pork in 0.45% 244.662 108.755 NaCl 25,000 unit In 0.45 % NaCl 1 250ml.bag @ 10.7 UNITS/KG/HR 9.95 mls/hr IV .Q24H [facility] Rx#: [id number] cefTRIAXone 1 gm In 50 Sodium Chloride 0.9% 50 ml @ 100 mls/hr IVPB Q24HR [facility] Rx#:[id number] Oral 0 354 Output: Urine 400 Stool 3 3 3 Other: Voiding Method Toilet Toilet Toilet # Voids 2 - Labs CBC & Chem 7: 10/29/23 06:35 10/29/23 06:35 Labs: Abnormal Lab Results - Last 24 Hours (Table) 10/31/23 11/01/23 11/01/23 Range/Units 14:29 01:45 09:26 PT 29.8 H (10.0-12.5) sec INR 3.0 H (<1.2) APTT 89.8 H 74.5 H (22.0-30.0) sec
[2023-11-01] MEDS: WARFARIN 5 MG TAB PO SCH (17:27)
[2023-11-01 18:13] VITALS: BP 123/73; PULSE 85
[2023-11-01] MEDS ORDERED: SYMBICORT 160-4.5 MCG INHALER INHALATION SCH (20:00)
== END 2023-11-01 18:14 | disposition home or self-care (01) | DRG 207 ==
LOC: EC 13:29 → 3SCARD 16:02
PROVIDERS: ADMIT Family Medicine; ATTEND Family Medicine
PROC: 0DB78ZX Excision of Stomach, Pylorus, Via Natural or Artificial Opening Endoscopic, Diagnostic (ICD-10-PCS; principal; 2023-10-29 14:35)
DX: I51.81 Takotsubo syndrome (principal); F41.0 Panic disorder [episodic paroxysmal anxiety]; F32.A Depression, unspecified; E66.01 Morbid (severe) obesity due to excess calories; E78.5 Hyperlipidemia, unspecified; F90.9 Attention-deficit hyperactivity disorder, unspecified type; F43.10 Post-traumatic stress disorder, unspecified; G40.909 Epilepsy, unspecified, not intractable, without status epilepticus; I21.A1 Myocardial infarction type 2; I27.20 Pulmonary hypertension, unspecified; I25.10 Atherosclerotic heart disease of native coronary artery without angina pectoris; I34.0 Nonrheumatic mitral (valve) insufficiency; I50.9 Heart failure, unspecified; J44.9 Chronic obstructive pulmonary disease, unspecified; K52.9 Noninfective gastroenteritis and colitis, unspecified; R94.31 Abnormal electrocardiogram [ECG] [EKG]; K50.90 Crohn's disease, unspecified, without complications; I42.9 Cardiomyopathy, unspecified; M06.9 Rheumatoid arthritis, unspecified; K57.30 Diverticulosis of large intestine without perforation or abscess without bleeding; M79.7 Fibromyalgia; Z68.32 Body mass index [BMI] 32.0-32.9, adult; K29.70 Gastritis, unspecified, without bleeding; Z95.2 Presence of prosthetic heart valve; N39.0 Urinary tract infection, site not specified; Z63.4 Disappearance and death of family member; Z79.01 Long term (current) use of anticoagulants; Z79.51 Long term (current) use of inhaled steroids; Z79.899 Other long term (current) drug therapy; Z82.49 Family history of ischemic heart disease and other diseases of the circulatory system; Z86.718 Personal history of other venous thrombosis and embolism; Z88.0 Allergy status to penicillin; Z88.2 Allergy status to sulfonamides; Z91.040 Latex allergy status; Z71.3 Dietary counseling and surveillance
CPT/HCPCS: 36415; 43239; 71046; 72131; 74018; 74177; 76705; 80048; 80053; 80061; 81001; 81003; 83036; 83605; 83690; 83735; 83880; 84100; 84484; 85025; 85027; 85379; 85610; 85652; 85730; 86140; 87324; 88305; 93005; 93306; 96361; 96374; 96375; 99291

== ENCOUNTER → 2023-11-26 | Outpatient (CLI) | payer OTHER ==
--- NOTE | 2023-11-27 07:57 | XR ---
EXAMINATION TYPE: XR lumbosacral spine min 4V DATE OF EXAM: 11/26/2023 CLINICAL HISTORY: pain COMPARISON: NONE TECHNIQUE: Frontal, lateral, and oblique images of the lumbar spine are obtained. FINDINGS: There are 5 lumbar type vertebral bodies identified. The lumbar spine shows satisfactory alignment without evidence of acute fracture or dislocation. Vertebral body heights are within normal limits. [id number] multilevel degenerative disc space narrowing. Moderate facet joint arthropa thy. Ventral spondylosis. The overlying soft tissue appears unremarkable. IMPRESSION: No acute fracture or dislocation is seen in the lumbar spine.ICD 10 NO FRACTURE, INITIAL EVALUATION
--- NOTE | 2023-11-27 07:59 | XR ---
EXAMINATION TYPE: XR sacroiliac joint comp BILAT DATE OF EXAM: 11/26/2023 COMPARISON: NONE HISTORY: Pain TECHNIQUE: 4 views of the sacroiliac joints are submitted. FINDINGS: The sacroiliac joints are symmetric without evidence for abnormal widening or sclerosis. No bony destructive change seen. IMPRESSION: Unremarkable
== END | disposition home or self-care (01) ==
LOC: RADXRMAIN 16:03
PROVIDERS: ATTEND Family Medicine
DX: M54.41 Lumbago with sciatica, right side (principal); G89.29 Other chronic pain
CPT/HCPCS: 72110; 72202

== ENCOUNTER 2024-04-22 09:35 | Inpatient (IN) | payer OTHER ==
--- NOTE | 2024-04-22 10:37 | ED ---
Chest Pain HPI - General Chief Complaint: Chest Pain Stated Complaint: Chest pain Time Seen by Provider: 04/22/24 10:10 Source: EMS Mode of arrival: EMS Limitations: no limitations - History of Present Illness Initial Comments: 49-year-old female with past medical history of mitral valve repair status post mitral valve replacement, rheumatoid arthritis who presents emergency department reporting chest pain. States for the past 3 days she has had difficulty breathing especially with exertion. States that she cannot lay flat due to her shortness of breath. Prior to hospital arrival she began developing extreme squeezing in her chest. She called EMS who gave her aspirin and nitro. Reports that the nitro did alleviate her symptoms. She takes Coumadin for her mitral valve replacement. Denies history of coronary disease. She denies fevers, chills or cough. Patient is not on a diuretic currently. Her last cardiac workup with echo was in October. Patient denies to me a history of congestive heart failure. No other alleviating, precipitating or modifying factors - Related Data Home Medications Medication Instructions Recorded Confirmed Dicyclomine [Bentyl] 20 mg PO TID-W/MEALS PRN 04/22/24 04/22/24 Loratadine [Claritin] 10 mg PO DAILY 04/22/24 04/22/24 Pantoprazole [Protonix] 40 mg PO DAILY 04/22/24 04/22/24 Venlafaxine HCl [Effexor XR] 150 mg PO DAILY 04/22/24 04/22/24 busPIRone HCL 15 mg PO BID 04/22/24 04/22/24 Previous Rx's Medication Instructions Recorded lisinopriL [Zestril] 20 mg PO DAILY #30 tab 10/24/23 traZODone HCL 150 mg PO HS #30 tab 10/24/23 Metoprolol Tartrate [Lopressor] 25 mg PO BID 90 Days #180 tab 10/30/23 Warfarin [Coumadin] 5 mg PO DAILY@1800 90 Days #90 tab 10/30/23 Budesonide-Formot 160-4.5 Mcg 2 puff INHALATION RT-BID 30 Days 11/01/23 [Symbicort 160-4.5 Mcg Inhaler] #1 each Allergies Allergy/AdvReac Type Severity Reaction Status Date / Time latex Allergy Rash/Hives Verified 04/22/24 11:06 Penicillins Allergy Anaphylaxis Verified 04/22/24 11:06 prochlorperazine edisylate Allergy Anaphylaxis Verified 04/22/24 11:06 [From Compazine] prochlorperazine maleate Allergy Anaphylaxis Verified 04/22/24 11:06 [From Compazine] sulfamethoxazole Allergy Unknown Verified 04/22/24 11:06 [From Bactrim] trimethoprim [From Bactrim] Allergy Unknown Verified 04/22/24 11:06 atorvastatin [From Lipitor] AdvReac Diarrhea Verified 04/22/24 11:06 Review of Systems ROS Statement: Those systems with pertinent positive or pertinent negative responses have been documented in the HPI. ROS Other: All systems not noted in ROS Statement are negative. Past Medical History Past Medical History: Chest Pain / Angina, Fibromyalgia, Hypertension, Memory Impairment, Rheumatoid Arthritis (RA), Seizure Disorder, Syncope Additional Past Medical History / Comment(s): irritable bowel, crohn's disease, vertigo, hypoglycemia, mechanical heart valve History of Any Multi-Drug Resistant Organisms: None Reported Past Surgical History: Cardiac Valve Replacement, Cholecystectomy, Heart Catheterization Additional Past Surgical History / Comment(s): laparoscopy 1994, D&C, colonoscopies, mitral valve replacememnt in 06/14. Past Anesthesia/Blood Transfusion Reactions: No Reported Reaction Additional Past Anesthesia/Blood Transfusion Reaction / Comment(s): slow to wake up @times Past Psychological History: ADD/ADHD, Anxiety, Depression, Panic Disorder, PTSD Smoking Status: Never smoker Past Alcohol Use History: None Reported Past Drug Use History: Marijuana - Past Family History Mother Family Medical History: Congestive Heart Failure (CHF) Father Additional Family Medical History / Comment(s): ETOH, unknown history General Exam Limitations: no limitations General appearance: alert, in no apparent distress Head exam: Present: atraumatic, normocephalic, normal inspection Eye exam: Present: normal appearance, PERRL, EOMI. Absent: scleral icterus, conjunctival injection, periorbital swelling ENT exam: Present: normal exam, mucous membranes moist Neck exam: Present: normal inspection. Absent: tenderness, meningismus, lymphadenopathy Respiratory exam: Present: rales, decreased breath sounds. Absent: respiratory distress, wheezes, rhonchi, stridor Cardiovascular Exam: Present: regular rate, normal rhythm, normal heart sounds. Absent: systolic murmur, diastolic murmur, rubs, gallop, clicks GI/Abdominal exam: Present: soft, normal bowel sounds. Absent: distended, tenderness, guarding, rebound, rigid Extremities exam: Present: normal inspection, full ROM, normal capillary refill. Absent: tenderness, pedal edema, joint swelling, calf tenderness Back exam: Present: normal inspection Neurological exam: Present: alert, oriented X3, CN II-XII intact Psychiatric exam: Present: normal affect, normal mood Skin exam: Present: warm, dry, intact, normal color. Absent: rash Course Vital Signs 04/22/24 04/22/24 04/22/24 09:36 09:45 10:15 Temperature 98.4 F Pulse Rate 81 Respiratory 20 Rate Blood Pressure 158/98 O2 Sat by Pulse 95 92 L 96 Oximetry 04/22/24 04/22/24 04/22/24 12:27 13:43 15:26 Temperature Pulse Rate 70 75 76 Respiratory 22 18 20 Rate Blood Pressure 143/87 141/98 153/96 O2 Sat by Pulse 98 96 97 Oximetry 04/22/24 04/22/24 04/22/24 17:00 18:34 19:32 Temperature 98.5 F Pulse Rate 80 82 84 Respiratory 22 20 18 Rate Blood Pressure 159/95 143/94 151/89 O2 Sat by Pulse 96 97 95 Oximetry 04/22/24 20:51 Temperature 98.3 F Pulse Rate 86 Respiratory 18 Rate Blood Pressure 153/97 O2 Sat by Pulse 95 Oximetry Chest Pain MDM - MDM Was pt. sent in by a medical professional or institution (, PA, [employer], urgent care, hospital, or halfway...) When possible be specific @ -No Did you speak to anyone other than the patient for history (EMS, parent, family, police, friend...)? What history was obtained from this source @ -Spoke with EMS for history Did you review nursing and triage notes (agree or disagree)? Why? @ -I reviewed and agree with nursing and triage notes Were old charts reviewed (outside hosp., previous admission, EMS record, old EKG, old radiological studies, urgent care reports/EKG's, halfway records)? Report findings @ -No old charts were reviewed Differential Diagnosis (chest pain, altered mental status, abdominal pain women, abdominal pain men, vaginal bleeding, weakness, fever, dyspnea, syncope, headache, dizziness, GI bleed, back pain, seizure, CVA, palpatations, mental health, musculoskeletal)? @ -Differential Dyspnea: Coronary syndrome, arrhythmia, tamponade, asthma, COPD, pulmonary embolism, pneumonia, pneumothorax, pulmonary effusion, anaphylaxis, diabetic ketoacidosis, flailed chest, pulmonary contusion, diaphragmatic rupture, anemia, neuromuscular, this is not meant to be an all-inclusive list. EKG interpreted by me (3pts min.). @ -Yes and demonstrates sinus rhythm rate of 73. MD interval 162. QRS 93. QTc of 458. No acute ST segment elevations or depressions X-rays interpreted by me (1pt min.). @ -Yes and demonstrates signs of pulmonary vascular congestion CT interpreted by me (1pt min.). @ -None done U/S interpreted by me (1pt. min.). @ -None done What testing was considered but not performed or refused? (CT, X-rays, U/S, labs)? Why? @ -None What meds were considered but not given or refused? Why? @ -None Did you discuss the management of the patient with other professionals (professionals i.e. , PA, [employer], lab, RT, psych nurse, aids social worker, insole and outsole splitter, teacher, postal sorting officer, behavioral health case manager)? Give summary @ -Spoke with Sheet for admission Was smoking cessation discussed for >3mins.? @ -No Was critical care preformed (if so, how long)? @ -No Were there social determinants of health that impacted care today? How? (Homelessness, low income, unemployed, alcoholism, drug addiction, transportation, low edu. Level, literacy, decrease access to med. care, custodial, rehab)? @ -No Was there de-escalation of care discussed even if they declined (Discuss DNR or withdrawal of care, Hospice)? DNR status @ -No What co-morbidities impacted this encounter? (DM, HTN, Smoking, COPD, CAD, Cancer, CVA, ARF, Chemo, Hep., AIDS, mental health diagnosis, sleep apnea, morbid obesity)? @ -Cardiac valve replacement Was patient admitted / discharged? Hospital course, mention meds given and route, prescriptions, significant lab abnormalities, going to OR and other pertinent info. @ -Upon arrival patient seen and evaluated in room 6. Thorough history and physical exam was performed. Twelve-lead EKG is obtained. Laboratory studies are conducted. Chest x-ray was performed. It appears that the patient is in co ngestive heart failure. She has a history of valve replacement. She will be admitted for cardiology consultation and diuresis. Patient agreeable to this and was admitted to the floor in stable condition Undiagnosed new problem with uncertain prognosis? @ -Yes Drug Therapy requiring intensive monitoring for toxicity (Heparin, Nitro, Insulin, Cardizem)? @ -No Were any procedures done? @ -No Diagnosis/symptom? @ -Acute CHF, history of valvular repair, supratherapeutic INR Acute, or Chronic, or Acute on Chronic? @Acute Uncomplicated (without systemic symptoms) or Complicated (systemic symptoms)? @ -Complicated Side effects of treatment? @ -No Exacerbation, Progression, or Severe Exacerbation? @ -No Poses a threat to life or bodily function? How? (Chest pain, [place], [place], pneumonia, PE, COPD, DKA, ARF, appy, cholecystitis, CVA, Diverticulitis, Homicidal, Suicidal, threat to staff... and all critical care pts) @ -Yes as patient appears to be in heart failure Disposition Clinical Impression: History of congestive heart failure, Chest pain, Status post mitral valve replacement, Exertional dyspnea, Supratherapeutic INR Disposition: ADMITTED IP TO THIS [facility] Condition: Stable Is patient prescribed a controlled substance at d/c from ED?: No Time of Disposition: 12:48 Decision to Admit Reason: Admit from EC Decision Date: 04/22/24 Decision Time: 12:48
[2024-04-22 10:48] LABS: Basophils # (A) 0.1 k/uL (0-0.2); Basophils % (A) 0 %; Eosinophils # (A) 0.2 k/uL (0-0.7); Eosinophils % (A) 2 %; HCT 41.7 % (34.0-46.0); HGB 13.7 gm/dL (11.4-16.0); Hypochromasia Slight; Lymphocytes # (A) 1.1 k/uL (1.0-4.8); Lymphocytes % (A) 7 %; MCH 28.4 pg (25.0-35.0); MCHC 32.8 g/dL (31.0-37.0); MCV 86.5 fL (80.0-100.0); Mean Platelet Volume 8.8; Monocytes # (A) 0.7 k/uL (0-1.0); Monocytes % (A) 5 %; Neutrophils # (A) 13.8 k/uL (1.3-7.7); Neutrophils % (A) 86 %; Platelet Count 365 k/uL (150-450); RBC 4.82 m/uL (3.80-5.40); RDW 15.2 % (11.5-15.5); WBC 16.1 k/uL (3.8-10.6)
--- NOTE | 2024-04-22 10:55 | XR ---
EXAMINATION TYPE: XR chest 2V DATE OF EXAM: 04/22/2024 COMPARISON: 10/24/2023 HISTORY: 49-year-old female with chest pain and shortness of breath TECHNIQUE: AP and lateral views FINDINGS: Heart borderline in size. Bilateral perihilar and diffuse interstitial and patchy lower lung opacitie s are now present. Median sternotomy wires prosthetic cardiac valve. Small pleural effusions on the l ateral view. IMPRESSION: Findings suggest CHF with interstitial pulmonary edema and small bilateral pleural effusions.
[2024-04-22 10:59] LABS: ALT 27 U/L (4-34); African American GFR (CKD) >90 (>60 ml/min/1.73 sqM); Albumin 3.8 g/dL (3.5-5.0); Anion Gap 9 mmol/L; Blood Urea Nitrogen 8 mg/dL (7-17); Calcium 8.2 mg/dL (8.4-10.2); Carbon Dioxide 22 mmol/L (22-30); Chloride 107 mmol/L (98-107); Glucose 170 mg/dL (74-99); Non-African American GFR(CKD) >90 (>60 ml/min/1.73 sqM); Sodium 138 mmol/L (137-145); Total Bilirubin 1.1 mg/dL (0.2-1.3); Total Protein 7.6 g/dL (6.3-8.2)
[2024-04-22 11:00] LABS: AST 45 U/L (14-36); Alkaline Phosphatase 96 U/L (38-126); Potassium 3.4 mmol/L (3.5-5.1)
[2024-04-22 11:01] LABS: Magnesium 1.4 mg/dL (1.6-2.3)
[2024-04-22 11:07] LABS: Partial Thromboplastin Time 44.3 sec (22.0-30.0); Prothrombin Time 51.2 sec (10.0-12.5)
[2024-04-22 11:08] LABS: NT-Pro-B-Type Natriuretic Pept 2530 pg/mL
[2024-04-22 11:33] LABS: INR 5.2 (<1.2)
[2024-04-22] MEDS: FUROSEMIDE 10 MG/ML 4 ML VIAL IV STA (12:27)
[2024-04-22] MEDS ORDERED: NALOXONE 0.4 MG/ML 1 ML VIAL IV PRN (12:49)
[2024-04-22] MEDS: ACETAMINOPHEN TAB 325 MG TAB PO PRN (15:13)
[2024-04-22] MEDS ORDERED: Magnesium Replacement Protocol 1 EACH MISC MISCELLANE PRN (16:35)
[2024-04-22] MEDS ORDERED: Potassium Replacement Protocol 1 EACH MISC MISCELLANE PRN (16:35)
[2024-04-22] MEDS: ASPIRIN 81 MG PO SCH (16:36)
[2024-04-22] MEDS: WARFARIN 0.5 MG TAB PO ONE (17:00)
[2024-04-22] MEDS: FUROSEMIDE 10 MG/ML 4 ML VIAL IV SCH (17:35)
[2024-04-22] MEDS: HYDROcodone/APAP 5-325MG 1 EACH TAB PO PRN (18:35)
[2024-04-22] MEDS: SYMBICORT 160-4.5 MCG INHALER INHALATION SCH (19:27)
[2024-04-22] MEDS: busPIRone HCl 5 MG TAB PO SCH (21:51)
[2024-04-22] MEDS: METOPROLOL TARTRATE 25 MG TAB PO SCH (21:52)
--- NOTE | 2024-04-22 23:10 | HP ---
HISTORY AND PHYSICAL CHIEF COMPLAINT: Chest pain. HISTORY OF PRESENT ILLNESS: This is a 49-year-old woman with a past medical history of multiple medical problems including mitral valve replacement, rheumatoid arthritis, is complaining of chest pain. The patient also has difficulty walking, especially on ambulation and a chest x-ray done in the ER showed features of CHF, and troponin is also elevated up to 0.682 and the EKG shows nonspecific ST-T changes. The patient will be admitted for further evaluation and treatment. There is no history of any fever, rigors, or chills. The patient is following Dr. Mercado in the outpatient setting. PAST MEDICAL HISTORY: History of hypertension, memory impairment, mitral valve replacement. Rest of the history and rest of the chart is also reviewed. HOME MEDICATIONS: Reviewed include Zestril. Dose and rest of medications reviewed. ALLERGIES: Latex. FAMILY HISTORY: History of CHF and EtOH. SOCIAL HISTORY: No history of smoking. REVIEW OF SYSTEMS: Fourteen-point review is negative except as mentioned earlier. PHYSICAL EXAMINATION: VITAL SIGNS: Pulse is 76, blood pressure 153/96, respirations 20. HEENT: Conjunctivae normal. NECK: No JVD. CARDIOVASCULAR: S1, S2. RESPIRATIONS: Breath sounds diminished at the bases. A few scattered rhonchi and crackles. ABDOMEN: Soft, nontender. LEGS: Minimal edema. NERVOUS SYSTEM: Nonfocal. SKIN: No ulcer, rash, bleeding. JOINTS: No active deforming arthropathy. LABORATORY DATA: WBC 16.1. INR 3.2. Rest of the labs are noted. ASSESSMENT: 1. Chest pain, possible acute nbd-EJ-dhyobzf elevation myocardial infarction. Troponin 0.68. 2. Congestive heart failure acute exacerbation, ejection fraction unknown. 3. History of mitral valve replacement. 4. Supratherapeutic INR. 5. Fibromyalgia. 6. Hypertension. 7. History of rheumatoid arthritis. 8. History of seizure disorder. 9. History of Crohn disease. 10.History of cholecystectomy. 11.History of attention deficit disorder, attention deficit hyperactivity disorder, anxiety, depression, posttraumatic stress disorder. RECOMMENDATIONS AND DISCUSSION: This is a 49-year-old woman, who presented with multiple complex medical issues, we will monitor the patient closely. We will initiate intravenous diuretics. Cardiology consultation. Antiplatelet agent. Overall prognosis guarded because of multiple complex medical issues. We will also obtain a 2D echo with Doppler. Resume the home medications. Hold Coumadin for now. Pharmacy will monitor. Prognosis guarded because of multiple complex medical issues. Discussed with the patient. Further recommendations to follow. The patient also had some insurance issues and not seeing Dr. Holder at this time. MMODL / IJN: [id number] /
[2024-04-22] MEDS: traZODone HCL 50 MG TAB PO SCH (23:48)
[2024-04-22] MEDS: ALPRAZolam 0.25 MG TAB PO STA (23:48)
--- NOTE | 2024-04-23 05:46 | XR ---
EXAMINATION TYPE: XR chest 1V portable DATE OF EXAM: 04/23/2024 CLINICAL HISTORY: Difficulty breathing and CHF progress study. TECHNIQUE: Single AP portable upright view of the chest is obtained. COMPARISON: Chest x-ray from one day earlier FINDINGS: Overlying sternal wires are redemonstrated. Persistent Mild to moderate central vascular congestion. Cardiac size stable and within normal limits. Osseous s tructures are intact. IMPRESSION: Mild to moderate central vascular congestion redemonstrated. No significant change from m ost recent prior. Correlate for fluid overload state.
[2024-04-23 06:22] LABS: Basophils # (A) 0.1 k/uL (0-0.2); Basophils % (A) 0 %; Eosinophils # (A) 0.2 k/uL (0-0.7); Eosinophils % (A) 1 %; HCT 45.2 % (34.0-46.0); HGB 14.5 gm/dL (11.4-16.0); Lymphocytes # (A) 1.6 k/uL (1.0-4.8); Lymphocytes % (A) 11 %; MCH 27.5 pg (25.0-35.0); MCV 85.8 fL (80.0-100.0); Mean Platelet Volume 7.9; Monocytes # (A) 0.8 k/uL (0-1.0); Monocytes % (A) 5 %; Neutrophils # (A) 12.5 k/uL (1.3-7.7); Neutrophils % (A) 82 %; Platelet Count 413 k/uL (150-450); RBC 5.27 m/uL (3.80-5.40); RDW 15.4 % (11.5-15.5); WBC 15.3 k/uL (3.8-10.6)
[2024-04-23 06:33] LABS: INR 4.6 (<1.2)
[2024-04-23 06:41] LABS: African American GFR (CKD) >90 (>60 ml/min/1.73 sqM); Anion Gap 10 mmol/L; Blood Urea Nitrogen 11 mg/dL (7-17); Calcium 8.5 mg/dL (8.4-10.2); Carbon Dioxide 22 mmol/L (22-30); Chloride 108 mmol/L (98-107); Glucose 137 mg/dL (74-99); Magnesium 1.6 mg/dL (1.6-2.3); Non-African American GFR(CKD) >90 (>60 ml/min/1.73 sqM); Potassium 3.8 mmol/L (3.5-5.1); Sodium 140 mmol/L (137-145)
[2024-04-23] MEDS: LORATADINE 10 MG TAB PO SCH (09:32)
[2024-04-23] MEDS: VENLAFAXINE HCL ER 150 MG CAP PO SCH (09:33)
[2024-04-23] MEDS: lisinopriL 20 MG TAB PO SCH (09:33)
[2024-04-23] MEDS: PANTOPRAZOLE 40 MG TABLET PO SCH (09:33)
[2024-04-23] MEDS: POTASSIUM CHLORIDE ER 20 MEQ TAB.ER PO STA (11:53)
[2024-04-23] MEDS: MAGNESIUM SULFATE-D5W PMX 1 GM in DEXTROSE/WATER 1 100ML.BAG IVPB SCH (11:54)
[2024-04-23] MEDS: ALPRAZolam 0.25 MG TAB PO PRN (12:20)
--- NOTE | 2024-04-23 12:38 | CA ---
Transthoracic Echo Report Name: Tabitha Knox Age: 49 Gender: F : 1975 Exam Date: 04/23/2024 07:53 Exam Location: [facility] Ht (in): 69 Wt (lb): 220 Ordering Physician: Dariel Hernandez MD Attending/Referring Phys: Unemployment Inspector Stephanie Scott RDCS Procedure CPT: Indications: chf Cardiac Hx: Mechanical MV Technical Quality: Fair Contrast 1: Total Dose (mL): Contrast 2: Total Dose (mL): MEASUREMENTS (Male / Female) Normal Values 2D ECHO LV Diastolic Diameter PLAX 3.9 cm 4.2 - 5.9 / 3.9 - 5.3 cm LV Systolic Diameter PLAX 2.8 cm IVS Diastolic Thickness 1.3 cm 0.6 - 1.0 / 0.6 - 0.9 cm LVPW Diastolic Thickness 1.3 cm 0.6 - 1.0 / 0.6 - 0.9 cm LV Relative Wall Thickness 0.6 RV Internal Dim ED PLAX 3.1 cm LA Systolic Diameter LX 4.6 cm 3.0 - 4.0 / 2.7 - 3.8 cm LV Diastolic Volume MOD BP 113.6 cm??? 67 - 155 / 56 - 104 cm??? LV Systolic Volume MOD BP 64.9 cm??? 22 - 58 / 19 - 49 cm??? LV Ejection Fraction MOD BP 42.9 % >= 55 % LV Cardiac Index MOD BP 1809.3 cm???/min???m??? LV Diastolic Volume MOD 4C 109.3 cm??? LV Systolic Volume MOD 4C 76.0 cm??? LV Ejection Fraction MOD 4C 30.5 % LV Cardiac Index MOD 4C 1235.8 cm???/min???m??? LV Diastolic Length 4C 8.6 cm LV Systolic Length 4C 7.1 cm LV Diastolic Volume MOD 2C 103.5 cm??? LV Systolic Volume MOD 2C 52.8 cm??? LV Ejection Fraction MOD 2C 49.0 % LV Cardiac Index MOD 2C 1882.5 cm???/min???m??? LV Diastolic Length 2C 8.4 cm LV Systolic Length 2C 7.0 cm LA Volume 91.7 cm??? 18 - 58 / 22 - 52 cm??? LA Volume Index 41.0 cm???/m??? 16 - 28 cm???/m??? M-MODE Aortic Root Diameter MM 3.1 cm AV Cusp Separation MM 2.2 cm DOPPLER AV Peak Velocity 150.2 cm/s AV Peak Gradient 9.0 mmHg AI Peak Velocity 378.4 cm/s AI Peak Gradient 57.3 mmHg AI Pressure Half Time 297.0 ms MV Peak Velocity 193.1 cm/s MV Peak Gradient 14.9 mmHg MV Mean Velocity 98.5 cm/s MV Mean Gradient 4.9 mmHg MV Velocity Time Integral 46.5 cm MV Area PHT 3.8 cm??? MV Deceleration Time 125.7 ms TR Peak Velocity 332.7 cm/s TR Peak Gradient 44.3 mmHg Right Ventricular Systolic Press 47.9 mmHg FINDINGS Left Ventricle Left ventricular ejection fraction is estimated at 30-35 %. Mildly increased septal wall thickness. Mildly increased posterior wall thickness. Mildly increased left ventricular diastolic volume. Moderately increased left ventricular systolic volume. Moderately decreased left ventricular ejection fraction. Apical inferior wall akinesis, apical anterior akinesis, aptical septal wall akinesis Right Ventricle Normal right ventricular size. Mildly reduced right ventricular global systolic function. Moderate pulmonary hypertension. Right ventricular systolic pressure estimated at 48 mm hg. Right Atrium Normal right atrial size. No right atrial thrombus or mass seen. Left Atrium Moderately increased left atrial diameter. Severely increased left atrial volume. Mildly increased left atrial area. Mitral Valve Normaly functioning MV with peak gradient of 15 mmHg and mean gradient of 5 mmHg Aortic Valve Aortic valve sclerosis. Moderate to severe aortic regurgitation. No aortic stenosis. Tricuspid Valve Structurally normal tricuspid valve. Mild tricuspid regurgitation. Pulmonic Valve Structurally normal pulmonic valve. Mild pulmonic regurgitation. Pericardium No pericardial effusion. No pleural effusion. Aorta Normal size aortic root and proximal ascending aorta. CONCLUSIONS Left ventricular ejection fraction 30-35% Mildly increased left ventricular wall thickness RVSP 48 Moderately dilated left atrium Normally functioning mitral mechanical valve Moderate to severe aortic regurgitation Previewed by: Dr. Shiva Mittal DO (Electronically Signed) Final Date: 23 April 2024 12:37
--- NOTE | 2024-04-23 15:55 | P.CRDCN ---
History of Present Illness Consult date: 04/23/24 Consult reason: chest pain, congestive heart failure, shortness of breath Chief complaint: shortness of breath, chest pain History of present illness: History of present illness: Patient is a pleasant 49-year-old significant past medical history of mitral valve replacement in 2019, rheumatoid arthritis seizure disorder, Crohn's disease, 8 presented to the emergency department with complaints of shortness of breath and chest pain. She does not smoke, no alcohol. She reports over the past 3 days her shortness of breath has been getting worse to the point where she was unable to lay flat and unable to walk short distances. She did have episode of chest pain yesterday, describes it as a pain of pain on her left chest. She also has been breaking out in sweats for the past 1 week and has been significantly worse over the past 2 days. He had followed with Dr. Winters previously but has had insurance issues and has not seen a wheel shop supervisor recently. She reports she is having difficulty controlling her INR levels. She was last seen in the hospital 09/2023 and echocardiogram at that time with EF 55-60%, mild LVH, mitral valve prosthesis with normal function. Labs reviewed troponin abnormal 0.082, 0.682, 0.796. BNP 2530, INR on arrival was 5.2, 4.6 this morning. WBC 15.3. She denies any recent illness, fevers or chills. She was started on Lasix 40 mg IV every 8 hours. Chest x-ray shows mildmoderate central vascular congestion. She does not have any chest pain today. She still has shortness of breath but is able to walk to the bathroom easier. She denies any swelling in her legs but feels like her abdomen is more distended swollen. She has been more fatigued. Blood pressures have been higher recently at other appointmens. ECHO 04/23/24 with EF 30-35%, normal mitral valve prosthesis, mode rate to severe aortic regurgitation. She does see a psychiatrist for her depression, no recent increase in stressors. REVIEW OF SYSTEMS: No fever or chills. No cough or expectoration. No diaphoresi s. Patient denies headache, dizziness, blurred vision, double vision. Patient denies any stomach discomfort. No nausea, vomiting. No hematochezia. No hematemesis. Denies any black stools or blood in his stools. Denies dysuria or hematuria. No muscle weakness or numbness. No chest pain or pressure. Reports shortness of breath and diaphoresis. + abdominal swelling. + Orthopnea. PHYSICAL EXAMINATION: This is a 49-year-old female in no apparent distress at the time of my examination. HEENT: Head is atraumatic, normocephalic. Pupils are equal, round. Sclerae anicteric. Conjunctivae are clear. Mucous membranes of the mouth are moist. Neck is supple. There is no jugular venous distention. No carotid bruit is heard. CHEST EXAMINATION: Lungs are clear to auscultation. No chest wall tenderness is noted on palpation or with deep breathing. HEART EXAMINATION: Heart regular rate and rhythm. S1, S2 heard. No murmurs, gallops or rub. ABDOMEN: Soft, nontender. Bowel sounds are heard. obese. EXTREMITIES: 2+ peripheral pulses with no evidence of peripheral edema and no calf tenderness noted. NEUROLOGIC EXAMINATION: Patient is awake, alert and oriented x3. IMPRESSION AND PLAN: History of mitral valve replacement 2020 Supratherapeutic INR on Coumadin NSTEMI Dyspnea Chest pain Cardiomyopathy, EF 30-35% PLAN: We did check ECHO, decrease EF to 30-35%. Blood pressure not well controlled, will increase lisinopril and aldactone. Continue to hold warfarin. Will start heparin drip once INR is less than 2.5. Will plan for left heart catheterization to rule out blockage once INR is within appropriate range. Check blood cultures x 2 to rule out infection. We will follow. I am dictating on behalf of Dr. Shiva Mittal's history/physical and assessment/plan. Past Medical History Past Medical History: Chest Pain / Angina, Fibromyalgia, Hypertension, Memory Impairment, Rheumatoid Arthritis (RA), Seizure Disorder, Syncope Additional Past Medical History / Comment(s): irritable bowel, crohn's disease, vertigo, hypoglycemia, mechanical heart valve, diverticulosis History of Any Multi-Drug Resistant Organisms: None Reported Past Surgical History: Cardiac Valve Replacement, Cholecystectomy, Heart Catheterization Additional Past Surgical History / Comment(s): laparoscopy 1994, D&C, colonoscopies, mitral valve replacememnt in 06/14. Past Anesthesia/Blood Transfusion Reactions: No Reported Reaction Additional Past Anesthesia/Blood Transfusion Reaction / Comment(s): slow to wake up @times Past Psychological History: ADD/ADHD, Anxiety, Depression, Panic Disorder, PTSD Additional Psychological History / Comment(s): brother may 2023 from drug OD Smoking Status: Never smoker Past Alcohol Use History: None Reported Past Drug Use History: Marijuana Additional Drug Use History / Comment(s): uses marijuana edibles daily for pain management - Past Family History Mother Family Medical History: Congestive Heart Failure (CHF) Father Additional Family Medical History / Comment(s): ETOH, unknown history Medications and Allergies Home Medications Medication Instructions Recorded Confirmed Type lisinopriL [Zestril] 20 mg PO DAILY #30 tab 10/24/23 04/22/24 Rx traZODone HCL 150 mg PO HS #30 tab 10/24/23 04/22/24 Rx Metoprolol Tartrate [Lopressor] 25 mg PO BID 90 Days #180 tab 10/30/23 04/22/24 Rx Warfarin [Coumadin] 5 mg PO DAILY@1800 90 Days #90 tab 10/30/23 04/22/24 Rx Budesonide-Formot 160-4.5 Mcg 2 puff INHALATION RT-BID 30 Days 11/01/23 04/22/24 Rx [Symbicort 160-4.5 Mcg Inhaler] #1 each Dicyclomine [Bentyl] 20 mg PO TID-W/MEALS PRN 04/22/24 04/22/24 History Loratadine [Claritin] 10 mg PO DAILY 04/22/24 04/22/24 History Pantoprazole [Protonix] 40 mg PO DAILY 04/22/24 04/22/24 History Venlafaxine HCl [Effexor XR] 150 mg PO DAILY 04/22/24 04/22/24 History busPIRone HCL 15 mg PO BID 04/22/24 04/22/24 History Allergies Allergy/AdvReac Type Severity Reaction Status Date / Time latex Allergy Rash/Hives Verified 04/22/24 11:06 Penicillins Allergy Anaphylaxis Verified 04/22/24 11:06 prochlorperazine edisylate Allergy Anaphylaxis Verified 04/22/24 11:06 [From Compazine] prochlorperazine maleate Allergy Anaphylaxis Verified 04/22/24 11:06 [From Compazine] sulfamethoxazole Allergy Unknown Verified 04/22/24 11:06 [From Bactrim] trimethoprim [From Bactrim] Allergy Unknown Verified 04/22/24 11:06 atorvastatin [From Lipitor] AdvReac Diarrhea Verified 04/22/24 11:06 Physical Exam Vitals: Vital Signs Temp Pulse Pulse Resp BP BP Pulse Ox 04/23/24 09:23 98.5 F 84 18 122/80 97 04/23/24 08:43 97 04/23/24 03:55 97.9 F 78 16 125/85 95 04/22/24 23:21 98.1 F 75 17 134/87 97 04/22/24 21:12 98.0 F 87 16 160/100 94 L 04/22/24 20:51 98.3 F 86 18 153/97 95 04/22/24 19:32 84 18 151/89 95 04/22/24 18:34 98.5 F 82 20 143/94 97 04/22/24 17:00 80 22 159/95 96 04/22/24 15:26 76 20 153/96 97 04/22/24 13:43 75 18 141/98 96 04/22/24 12:27 70 22 143/87 98 04/22/24 10:15 96 Intake and Output 04/22/24 04/23/24 04/23/24 22:59 06:59 14:59 Intake Total 250 Output Total 1000 425 Balance -1000 -425 250 Intake: IV 10 Invasive Line 1 10 Oral 240 Output: Urine 1000 425 Other: Voiding Method Toilet Toilet # Voids 6 1 Weight 99.79 kg 102.2 kg Results 04/23/24 05:49 04/23/24 05:49 Cardiac Enzymes 04/22/24 04/22/24 04/22/24 Range/Units 10:35 10:35 14:48 AST 45 H (14-36) U/L Troponin I 0.082 H* 0.682 H* (0.000-0.034) ng/mL 04/22/24 Range/Units 17:55 AST (14-36) U/L Troponin I 0.796 H* (0.000-0.034) ng/mL Coagulation 04/22/24 04/23/24 Range/Units 10:35 05:49 PT 51.2 H 45.0 H (10.0-12.5) sec APTT 44.3 H (22.0-30.0) sec CBC 04/22/24 04/23/24 Range/Units 10:35 05:49 WBC 16.1 H 15.3 H (3.8-10.6) k/uL RBC 4.82 5.27 (3.80-5.40) m/uL Hgb 13.7 14.5 (11.4-16.0) gm/dL Hct 41.7 45.2 (34.0-46.0) % Plt Count 365 413 (150-450) k/uL Comprehensive Metabolic Panel 04/22/24 04/23/24 Range/Units 10:35 05:49 Sodium 138 140 (137-145) mmol/L Potassium 3.4 L 3.8 (3.5-5.1) mmol/L Chloride 107 108 H (98-107) mmol/L Carbon Dioxide 22 22 (22-30) mmol/L BUN 8 11 (7-17) mg/dL Creatinine 0.64 0.60 (0.52-1.04) mg/dL Glucose 170 H 137 H (74-99) mg/dL Calcium 8.2 L 8.5 (8.4-10.2) mg/dL AST 45 H (14-36) U/L ALT 27 (4-34) U/L Alkaline Phosphatase 96 (38-126) U/L Total Protein 7.6 (6.3-8.2) g/dL Albumin 3.8 (3.5-5.0) g/dL Current Medications Generic Name Dose Route Start Last Admin Trade Name Freq PRN Reason Stop Dose Admin Acetaminophen 650 mg 04/22/24 15:09 04/22/24 15:13 Acetaminophen Tab 325 Mg Tab PO 650 mg Q6HR PRN Administration Fever and/ or Pain Hydrocodone Bitart/Acetaminophen 1 each 04/22/24 18:19 04/23/24 05:51 Hydrocodone/Apap 5-325mg 1 Each Tab PO 1 each Q6HR PRN Administration Pain Aspirin 81 mg 04/22/24 16:30 04/23/24 09:35 Aspirin 81 Mg PO Not Given DAILY [facility] Budesonide/Formoterol Fumarate 2 puff 04/22/24 20:00 04/23/24 08:41 Symbicort 160-4.5 Mcg Inhaler INHALATION Not Given RT-BID KOKI Buspirone HCl 15 mg 04/22/24 21:00 04/23/24 09:33 Buspirone Hcl 5 Mg Tab PO 15 mg BID KOKI Administration Dicyclomine HCl 20 mg 04/22/24 14:52 Dicyclomine 20 Mg Tab PO TID-W/MEALS PRN IBS Furosemide 40 mg 04/22/24 16:30 04/23/24 09:33 Furosemide 10 Mg/Ml 4 Ml Vial IV 40 mg Q8HR KOKI Administration Lisinopril 20 mg 04/23/24 09:00 04/23/24 09:33 Lisinopril 20 Mg Tab PO 20 mg DAILY KOKI Administration Loratadine 10 mg 04/23/24 09:00 04/23/24 09:32 Loratadine 10 Mg Tab PO 10 mg DAILY KOKI Administration Metoprolol Tartrate 25 mg 04/22/24 21:00 04/23/24 09:33 Metoprolol Tartrate 25 Mg Tab PO 25 mg BID KOKI Administration Miscellaneous Information 1 each 04/22/24 14:53 Warfarin Per Pharmacy MISCELLANE DIRECTED PRN Per Protocol Protocol Miscellaneous Information 1 each 04/22/24 16:35 Magnesium Replacement Protocol 1 Each Misc MISCELLANE DAILY PRN Per Protocol Protocol Miscellaneous Information 1 each 04/22/24 16:35 Potassium Replacement Protocol 1 Each Misc MISCELLANE DAILY PRN Per Protocol Protocol Naloxone HCl 0.2 mg 04/22/24 12:49 Naloxone 0.4 Mg/Ml 1 Ml Vial IV Q2M PRN Opioid Reversal Pantoprazole Sodium 40 mg 04/23/24 09:00 04/23/24 09:33 Pantoprazole 40 Mg Tablet PO 40 mg DAILY KOKI Administration Trazodone HCl 150 mg 04/22/24 21:00 04/22/24 23:48 Trazodone Hcl 50 Mg Tab PO 150 mg HS KOKI Administration Venlafaxine HCl 150 mg 04/23/24 09:00 04/23/24 09:33 Venlafaxine Hcl Er 150 Mg Cap PO 150 mg DAILY KOKI Administration Warfarin Sodium 0 mg 04/23/24 18:00 Warfarin 0.5 Mg Tab PO 04/23/24 18:01 ONCE@1800 ONE Intake and Output 04/22/24 04/23/24 04/23/24 22:59 06:59 14:59 Intake Total 250 Output Total 1000 425 Balance -1000 -425 250 Intake: IV 10 Invasive Line 1 10 Oral 240 Output: Urine 1000 425 Other: Voiding Method Toilet Toilet # Voids 6 1 Weight 99.79 kg 102.2 kg 04/23/24 05:49 04/23/24 05:49
[2024-04-23] MEDS: SPIRONOLACTONE 25 MG TAB PO SCH (16:18)
[2024-04-23] MEDS: WARFARIN 0.5 MG TAB PO ONE (18:31)
[2024-04-23] MEDS: LOPERAMIDE 2 MG CAP PO PRN (18:36)
[2024-04-23] MEDS ORDERED: ONDANSETRON 4 MG in SODIUM CHLORIDE 0.9% 50 ML IVPB PRN (20:05)
[2024-04-23] MEDS: ONDANSETRON 4 MG/2 ML VIAL IVP PRN (20:51)
--- NOTE | 2024-04-24 00:16 | PN ---
PROGRESS NOTE DATE OF SERVICE: 04/23/2024 SUBJECTIVE: This 49-year-old woman was admitted with chest pain and CHF, is closely monitored. No chest pain, no palpitation. shortness of breath complaint. A 2D echo showed ejection fraction of about 30% to 35% and normal mechanical mitral valves also. OBJECTIVE: VITAL SIGNS: Pulse is 88, blood pressure 150/90, respirations 20. CHEST: Clear, few scattered rhonchi. CARDIOVASCULAR: S1, S2 noted. ABDOMEN: Soft. LABORATORY DATA: INR is 4.6. ASSESSMENT: 1. Chest pain, possible acute pai-DZ-rqssycx elevation myocardial infarction, troponin 0.68. 2. CHF acute exacerbation with acute on chronic systolic dysfunction, ejection fraction 30% to 35%. 3. Mechanical mitral valve. 4. Supratherapeutic INR. 5. Fibromyalgia. 6. Hypertension. 7. Multiple complex medical issues. RECOMMENDATIONS: Recommended to continue current management, continue symptomatic treatment otherwise. Once the INR is down to 3, Coumadin may be restarted. Closely follow with Cardiology. The chest x-ray today shows significant CHF still. We will continue to monitor. Prognosis guarded. Further recommendations to follow. MMODL / IJN: [id number] / MTDD
[2024-04-24] MEDS: lisinopriL 20 MG TAB PO SCH (07:58)
[2024-04-24 08:14] LABS: INR 3.1 (<1.2); Prothrombin Time 30.7 sec (10.0-12.5)
[2024-04-24 08:39] LABS: Basophils # (A) 0.1 k/uL (0-0.2); Basophils % (A) 1 %; Eosinophils # (A) 0.2 k/uL (0-0.7); Eosinophils % (A) 2 %; HCT 47.6 % (34.0-46.0); HGB 14.8 gm/dL (11.4-16.0); Lymphocytes # (A) 1.6 k/uL (1.0-4.8); Lymphocytes % (A) 19 %; MCH 27.3 pg (25.0-35.0); MCHC 31.1 g/dL (31.0-37.0); MCV 87.6 fL (80.0-100.0); Monocytes # (A) 0.7 k/uL (0-1.0); Monocytes % (A) 8 %; Neutrophils # (A) 5.7 k/uL (1.3-7.7); Neutrophils % (A) 68 %; Platelet Count 428 k/uL (150-450); RBC 5.43 m/uL (3.80-5.40); RDW 15.6 % (11.5-15.5); WBC 8.3 k/uL (3.8-10.6)
[2024-04-24 08:50] LABS: African American GFR (CKD) 89 (>60 ml/min/1.73 sqM); Anion Gap 9 mmol/L; Blood Urea Nitrogen 19 mg/dL (7-17); Calcium 8.6 mg/dL (8.4-10.2); Carbon Dioxide 24 mmol/L (22-30); Chloride 104 mmol/L (98-107); Glucose 109 mg/dL (74-99); Non-African American GFR(CKD) 77 (>60 ml/min/1.73 sqM); Sodium 137 mmol/L (137-145)
[2024-04-24 08:55] LABS: Potassium 3.9 mmol/L (3.5-5.1)
--- NOTE | 2024-04-24 10:45 | XR ---
EXAM: XR chest 1V portable CLINICAL INDICATION:Female, 49 years old with history of chf; [facility] COMPARISON: 04/23/2024 TECHNIQUE: Chest single view. FINDINGS: Heart size upper normal. Partially calcified mildly tortuous aorta. Sternotomy wires. Improving central vascular congestion and overall slightly improved aeration of the lungs. No acute a irspace disease, sizable effusion, or pneumothorax. Osseous structures appear unchanged. IMPRESSION: Interval improved central vascular congestion and improved aeration of the lungs.
--- NOTE | 2024-04-24 13:36 | P.PN ---
Subjective Progress Note Date: 04/24/24 History of present illness: Patient is a pleasant 49-year-old significant past medical history of mitral v alve replacement in 2019, rheumatoid arthritis seizure disorder, Crohn's disease, 8 presented to the emergency department with complaints of shortness of breath and chest pain. She does not smoke, no alcohol. She reports over the past 3 days her shortness of breath has been getting worse to the point where she was unable to lay flat and unable to walk short distances. She did have episode of chest pain yesterday, describes it as a pain of pain on her left chest. She also has been breaking out in sweats for the past 1 week and has been significantly worse over the past 2 days. He had followed with Dr. Winters previously but has had insurance issues and has not seen a stunt performer recently . She reports she is having difficulty controlling her INR levels. She was last seen in the hospital 09/2023 and echocardiogram at that time with EF 55- 60%, mild LVH, mitral valve prosthesis with normal function. Labs reviewed troponin abnormal 0.082, 0.682, 0.796. BNP 2530, INR on arrival was 5.2, 4.6 this morning. WBC 15.3. She denies any recent illness, fevers or chills. She was started on Lasix 40 mg IV every 8 hours. Chest x-ray shows mildmoderate central vascular congestion. She does not have any chest pain today. She still has shortness of breath but is able to walk to the bathroom easier. She denies any swelling in her legs but feels like her abdomen is more distended swollen. She has been more fatigued. Blood pressures have been higher recently at other appointmens. ECHO 04/23/24 with EF 30-35%, normal mitral valve prosthesis, moderate to severe aortic regurgitation. She does see a psychiatrist for her depression, no recent increase in stressors. 04/24 She reports that her breathing is significantly better. Denies any chest pain or pressure. She is still having occasional sweats. Was reviewed this morning: INR 3.1, potassium 3.9, creatinine 0.88. Chest x-ray is showing some improvement. Blood pressure is better controlled with systolic BP 110s, she did have 1 episode in the 90s overnight but was asymptomatic. REVIEW OF SYSTEMS: No fever or chills. No cough or expectoration. No diaphoresis. Patient denies headache, dizziness, blurred vision, double vision. Patient denies any stomach discomfort. No nausea, vomiting. No hematochezia. No hematemesis. Denies any black stools or blood in his stools. Denies dysuria or hematuria. No muscle weakness or numbness. No chest pain or pressure. Reports shortness of breath and diaphoresis. + abdominal swelling. + Orthopnea. PHYSICAL EXAMINATION: This is a 49-year-old female in no apparent distress at the time of my examination. HEENT: Head is atraumatic, normocephalic. Pupils are equal, round. Sclerae anicteric. Conjunctivae are clear. Mucous membranes of the mouth are moist. Neck is supple. There is no jugular venous distention. No carotid bruit is heard. CHEST EXAMINATION: Lungs are clear to auscultation. No chest wall tenderness is noted on palpation or with deep breathing. HEART EXAMINATION: Heart regular rate and rhythm. S1, S2 heard. No murmurs, gallops or rub. ABDOMEN: Soft, nontender. Bowel sounds are heard. obese. EXTREMITIES: 2+ peripheral pulses with no evidence of peripheral edema and no calf tenderness noted. NEUROLOGIC EXAMINATION: Patient is awake, alert and oriented x3. IMPRESSION AND PLAN: History of mitral valve replacement 2020 Supratherapeutic INR on Coumadin NSTEMI Dyspnea Chest pain Cardiomyopathy, EF 30-35% PLAN: We did check ECHO, decrease EF to 30-35%. Blood pressure better controlled. Continue to hold warfarin. Will start heparin drip once INR is les s than 2.5. Will plan for left heart catheterization to rule out blockage once INR is within appropriate range. Check blood cultures x 2 to rule out infection- pending. We will follow. I am dictating on behalf of Dr. Shiva Mittal's history/physical and assessment/plan. Objective - Vital Signs Vital signs: Vital Signs Temp 98.4 F 04/24/24 07:50 Pulse 89 04/24/24 07:50 Resp 18 04/24/24 07:50 BP 113/73 04/24/24 07:50 Pulse Ox 97 04/24/24 07:50 FiO2 Intake & Output 04/23/24 04/24/24 04/24/24 18:59 06:59 18:59 Intake Total 260 250 Output Total 1300 650 Balance -1040 -650 250 Weight 100.4 kg Intake: IV 20 10 Invasive Line 1 20 10 Oral 240 240 Output: Urine 1300 650 Other: Voiding Method Toilet Toilet Toilet - Labs CBC & Chem 7: 04/24/24 06:43 04/24/24 06:43 Labs: Abnormal Lab Results - Last 24 Hours (Table) 04/24/24 04/24/24 04/24/24 Range/Units 06:43 06:43 06:43 RBC 5.43 H (3.80-5.40) m/uL Hct 47.6 H (34.0-46.0) % RDW 15.6 H (11.5-15.5) % PT 30.7 H (10.0-12.5) sec INR 3.1 H (<1.2) BUN 19 H (7-17) mg/dL Glucose 109 H (74-99) mg/dL
[2024-04-24] MEDS ORDERED: WARFARIN 2 MG TAB PO ONE (18:00)
--- NOTE | 2024-04-25 02:10 | PN ---
PROGRESS NOTE DATE OF SERVICE: 04/24/2024 SUBJECTIVE: This is a 49-year-old woman, who was admitted with chest pain, CHF is being closely monitored. The patient on mechanical mitral valve. Most recent chest x-ray, which I reviewed personally showed some clearance. OBJECTIVE: VITAL SIGNS: Pulse is 89, blood pressure n respirations 18. HEENT: Conjunctivae normal. CARDIOVASCULAR: S1, S2. RESPIRATIONS: A few scattered rhonchi. ABDOMEN: Soft. LABORATORY DATA: Noted. ASSESSMENT: 1. Chest pain, possible acute yav-SU-azpndgl elevation myocardial infarction, troponin 0.68. 2. CHF acute exacerbation, acute on chronic systolic dysfunction, ejection fraction 30% to 35%. 3. Mechanical heart valve. 4. Supratherapeutic INR. 5. Fibromyalgia. 6. Hypertension. 7. Multiple complex medical issues. RECOMMENDATIONS: Recommend to continue current management and symptomatic treatment, otherwise, closely follow with Cardiology. At this time, I would recommend initiate Coumadin if Cardiology is not planning any invasive evaluations. Otherwise, continue the rest of the medications. Aeration is improved. Further recommendations to follow. MMODL / IJN: [id number] / MIAH
[2024-04-25 07:18] LABS: INR 1.9 (<1.2); Prothrombin Time 19.6 sec (10.0-12.5)
[2024-04-25] MEDS ORDERED: HEPARIN SODIUM 1,000 UN/ML (10ML VL) IV PRN (07:31)
[2024-04-25 07:33] LABS: Basophils # (A) 0.1 k/uL (0-0.2); Basophils % (A) 1 %; Eosinophils # (A) 0.3 k/uL (0-0.7); Eosinophils % (A) 4 %; HCT 43.9 % (34.0-46.0); HGB 13.9 gm/dL (11.4-16.0); Lymphocytes # (A) 1.5 k/uL (1.0-4.8); Lymphocytes % (A) 20 %; MCH 27.2 pg (25.0-35.0); MCHC 31.7 g/dL (31.0-37.0); MCV 85.9 fL (80.0-100.0); Mean Platelet Volume 7.8; Monocytes # (A) 0.8 k/uL (0-1.0); Monocytes % (A) 11 %; Neutrophils # (A) 4.6 k/uL (1.3-7.7); Neutrophils % (A) 63 %; Platelet Count 383 k/uL (150-450); RBC 5.11 m/uL (3.80-5.40); RDW 15.6 % (11.5-15.5); WBC 7.3 k/uL (3.8-10.6)
[2024-04-25 07:47] LABS: African American GFR (CKD) 87 (>60 ml/min/1.73 sqM); Anion Gap 7 mmol/L; Blood Urea Nitrogen 26 mg/dL (7-17); Calcium 8.7 mg/dL (8.4-10.2); Carbon Dioxide 28 mmol/L (22-30); Chloride 103 mmol/L (98-107); Glucose 107 mg/dL (74-99); Non-African American GFR(CKD) 75 (>60 ml/min/1.73 sqM); Potassium 3.5 mmol/L (3.5-5.1); Sodium 138 mmol/L (137-145)
[2024-04-25 07:54] LABS: Partial Thromboplastin Time 28.6 sec (22.0-30.0)
[2024-04-25] MEDS: HEPARIN SOD,PORK IN 0.45% NACL 25,000 UNIT in 0.45% NACL 1 250ML.BAG IV SCH (08:56)
[2024-04-25] MEDS: HEPARIN SODIUM 1,000 UN/ML (10ML VL) IV ONE (08:57)
[2024-04-25] MEDS: POTASSIUM CHLORIDE ER 20 MEQ TAB.ER PO STA (08:57)
[2024-04-25] MEDS ORDERED: NITROGLYCERIN SL TABS 0.4 MG TAB SUBLINGUAL PRN (09:55)
[2024-04-25] MEDS: ASPIRIN 325 MG TAB PO STA (11:14)
[2024-04-25] MEDS: ALPRAZolam 0.25 MG TAB PO PRN (11:14)
[2024-04-25 11:24] LABS: Glucose,Whole Blood 89 mg/dL (70-110)
--- NOTE | 2024-04-25 12:21 | P.PN ---
Subjective Progress Note Date: 04/25/24 History of present illness: Patient is a pleasant 49-year-old significant past medical history of mitral v alve replacement in 2019, rheumatoid arthritis seizure disorder, Crohn's disease, 8 presented to the emergency department with complaints of shortness of breath and chest pain. She does not smoke, no alcohol. She reports over the past 3 days her shortness of breath has been getting worse to the point where she was unable to lay flat and unable to walk short distances. She did have episode of chest pain yesterday, describes it as a pain of pain on her left chest. She also has been breaking out in sweats for the past 1 week and has been significantly worse over the past 2 days. He had followed with Dr. Winters previously but has had insurance issues and has not seen a tailor women's garment alteration recently . She reports she is having difficulty controlling her INR levels. She was last seen in the hospital 09/2023 and echocardiogram at that time with EF 55- 60%, mild LVH, mitral valve prosthesis with normal function. Labs reviewed troponin abnormal 0.082, 0.682, 0.796. BNP 2530, INR on arrival was 5.2, 4.6 this morning. WBC 15.3. She denies any recent illness, fevers or chills. She was started on Lasix 40 mg IV every 8 hours. Chest x-ray shows mildmoderate central vascular congestion. She does not have any chest pain today. She still has shortness of breath but is able to walk to the bathroom easier. She denies any swelling in her legs but feels like her abdomen is more distended swollen. She has been more fatigued. Blood pressures have been higher recently at other appointmens. ECHO 04/23/24 with EF 30-35%, normal mitral valve prosthesis, moderate to severe aortic regurgitation. She does see a psychiatrist for her depression, no recent increase in stressors. 04/24 She reports that her breathing is significantly better. Denies any chest pain or pressure. She is still having occasional sweats. Was reviewed this morning: INR 3.1, potassium 3.9, creatinine 0.88. INR 1.9 chest x-ray is showing some improvement. Blood pressure is better controlled with systolic BP 110s, she did have 1 episode in the 90s overnight but was asymptomatic. 04/25 Patient is scheduled for cardiac catheterization today with Dr. Mittal. She denies having any chest pain or shortness of breath at this time. Blood pressure 134/86, heart rate 85, pulse ox 97% on room air. Repeat blood work r eveals hemoglobin 13.9. Creatinine 0.89 and BUN 26, potassium 3.5. Patient has been maintained on heparin drip. Echocardiogram reveals EF of 30 to 35%. RVSP 48. Normally functioning mitral mechanical valve. Moderate to severe aortic regurgitation. PHYSICAL EXAMINATION: This is a 49-year-old female in no apparent distress at the time of my examination. HEENT: Head is atraumatic, normocephalic. Pupils are equal, round. Sclerae anicteric. Conjunctivae are clear. Mucous membranes of the mouth are moist. Neck is supple. There is no jugular venous distention. No carotid bruit is heard. CHEST EXAMINATION: Lungs are clear to auscultation. No chest wall tenderness is noted on palpation or with deep breathing. HEART EXAMINATION: Heart regular rate and rhythm. S1, S2 heard. No murmurs, gallops or rub. ABDOMEN: Soft, nontender. Bowel sounds are heard. obese. EXTREMITIES: 2+ peripheral pulses with no evidence of peripheral edema and no calf tenderness noted. NEUROLOGIC EXAMINATION: Patient is awake, alert and oriented x3. IMPRESSION AND PLAN: History of mitral valve replacement 2020 Supratherapeutic INR on Coumadin NSTEMI Dyspnea Chest pain Cardiomyopathy, EF 30-35% PLAN: Continue patient on heparin drip, warfarin on hold Patient is scheduled for cardiac catheterization today with Dr. Mittal Blood cultures no growth at 24 hours We will follow. Nurse practitioner note has been reviewed, I agree with documented findings and plan of care. Patient was seen and examined. Objective - Vital Signs Vital signs: Vital Signs Temp 98.2 F 04/25/24 08:37 Pulse 81 04/25/24 08:37 Resp 18 04/25/24 08:37 BP 103/71 04/25/24 08:37 Pulse Ox 98 04/25/24 08:37 FiO2 Intake & Output 04/24/24 04/25/24 04/25/24 18:59 06:59 18:59 Intake Total 480 370 Output Total 250 700 Balance 230 -700 370 Intake: IV 30 10 Invasive Line 1 20 Invasive Line 2 10 10 Oral 450 360 Output: Urine 250 700 Other: Voiding Method Toilet Toilet Toilet # Voids 1 1 - Labs CBC & Chem 7: 04/25/24 06:48 04/25/24 06:48 Labs: Abnormal Lab Results - Last 24 Hours (Table) 04/25/24 04/25/24 04/25/24 Range/Units 06:48 06:48 06:48 RDW 15.6 H (11.5-15.5) % PT 19.6 H (10.0-12.5) sec INR 1.9 H (<1.2) BUN 26 H (7-17) mg/dL Glucose 107 H (74-99) mg/dL Microbiology - Last 24 Hours (Table) 04/23/24 17:59 Blood Culture - Preliminary Blood 04/23/24 17:53 Blood Culture - Preliminary Blood
[2024-04-25] MEDS: ATORVASTATIN 80 MG TAB PO STA (13:06)
[2024-04-25] MEDS: CYCLOBENZAPRINE 5 MG TAB PO PRN (13:09)
[2024-04-25] MEDS ORDERED: LIDOCAINE 1% INJ 10MG/ML (20 ML MDV) ONE (14:42)
[2024-04-25] MEDS ORDERED: fentaNYL (PF) 50 MCG/ML 2 ML AMP ONE (14:42)
[2024-04-25] MEDS ORDERED: VERAPAMIL 2.5 MG/ML 2 ML AMP ONE (14:42)
[2024-04-25] MEDS: fentaNYL (PF) 50 MCG/1 ML VIAL IVP ONE ×2 (14:59→15:11)
[2024-04-25] MEDS: LIDOCAINE 1% INJ 10MG/ML (20 ML MDV) SQ ONE (14:59)
[2024-04-25] MEDS: MIDAZOLAM 2 MG/2 ML VIAL IVP ONE ×2 (14:59→15:11)
[2024-04-25] MEDS: SODIUM CHLORIDE 0.9% 500 ML 500 ML IV ONE (15:15)
[2024-04-25] MEDS: HEPARIN SODIUM,PORCINE 10,000 UNIT in SODIUM CHLORIDE 0.9% 1,000 ML IRRIGATION ONE (15:15)
[2024-04-25] MEDS: HEPARIN SODIUM,PORCINE (1 ML) 2,500 UNIT in SODIUM CHLORIDE 0.9% 250 ML IRRIGATION ONE (15:15)
[2024-04-25] MEDS: IOPAMIDOL-370 100ML BTL INTRATHECA ONE (15:16)
[2024-04-25 19:53] LABS: Glucose,Whole Blood 95 mg/dL (70-110)
[2024-04-25] MEDS: HYDROmorphone 0.5 MG/0.5 ML SYRINGE IVP PRN (20:11)
[2024-04-25] MEDS: ALPRAZolam 0.5 MG TAB PO PRN (21:21)
--- NOTE | 2024-04-25 22:16 | PN ---
PROGRESS NOTE DATE OF SERVICE: 04/25/2024 SUBJECTIVE: This is a 49-year-old woman who was admitted with CHF acute exacerbation, also had possible acute ewc-YA-llxmzcq-elevation myocardial infarction. The patient is scheduled for cardiac cath today. No chest pain, no palpitation. OBJECTIVE: VITAL SIGNS: Pulse 85, blood pressure 135/86, respirations 18. CHEST: Few scattered rhonchi. CARDIOVASCULAR: S1, S2. ABDOMEN: Soft. NERVOUS SYSTEM: Nonfocal. LABORATORY DATA: Reviewed. ASSESSMENT: 1. Chest pain, possible acute oxs-PX-lyqiuvo-elevation myocardial infarction, troponin 0.68. 2. CHF acute exacerbation with acute on chronic systolic dysfunction, ejection fraction 30% to 35%. 3. Mechanical mitral valve. 4. Supratherapeutic INR on admission. 5. Fibromyalgia. 6. Hypertension. 7. Multiple complex medical issues. RECOMMENDATIONS: Recommended to continue current management, continue symptomatic treatment, otherwise cardiac cath per Cardiology. Recommended repeat labs. Guarded prognosis. Further recommendations to follow. Continue with the antiplatelet agents, Lipitor also. MMODL / IJN: [id number] /
[2024-04-26] MEDS ORDERED: HEPARIN SODIUM,PORCINE 10,000 UNIT in SODIUM CHLORIDE 0.9% 1,000 ML IRRIGATION PRN (07:00)
[2024-04-26] MEDS ORDERED: HEPARIN SODIUM,PORCINE (1 ML) 2,500 UNIT in SODIUM CHLORIDE 0.9% 250 ML IRRIGATION PRN (07:00)
[2024-04-26] MEDS: DAPAGLIFLOZIN PROPANEDIOL 10 MG TABLET PO SCH (10:12)
--- NOTE | 2024-04-26 11:52 | P.PN ---
Subjective Progress Note Date: 04/26/24 History of present illness: Patient is a pleasant 49-year-old significant past medical history of mitral v alve replacement in 2019, rheumatoid arthritis seizure disorder, Crohn's disease, presented to the emergency department with complaints of shortness of breath and chest pain. She does not smoke, no alcohol. She reports over the past 3 days her shortness of breath has been getting worse to the point where she was unable to lay flat and unable to walk short distances. She did have episode of chest pain yesterday, describes it as a pain of pain on her left chest. She also has been breaking out in sweats for the past 1 week and has been significantly worse over the past 2 days. He had followed with Dr. Winters previously but has had insurance issues and has not seen a electronics utility worker recently. She reports she is having difficulty controlling her INR levels. She was last seen in the hospital 09/2023 and echocardiogram at that time with EF 55-60%, mild LVH, mitral valve prosthesis with normal function. Labs reviewed troponin abnormal 0.082, 0.682, 0.796. BNP 2530, INR on arrival was 5.2, 4.6 this morning. WBC 15.3. She denies any recent illness, fevers or chills. She was started on Lasix 40 mg IV every 8 hours. Chest x-ray shows mildmoderate central vascular congestion. She does not have any chest pain today. She still has shortness of breath but is able to walk to the bathroom easier. She denies any swelling in her legs but feels like her abdomen is more distended swollen. She has been more fatigued. Blood pressures have been higher recently at other appointmens. ECHO 04/23/24 with EF 30-35%, normal mitral valve prosthesis, moderate to severe aortic regurgitation. She does see a psychiatrist for her depression, no recent increase in stressors. 04/24 She reports that her breathing is significantly better. Denies any chest pain or pressure. She is still having occasional sweats. Was reviewed this morning: INR 3.1, potassium 3.9, creatinine 0.88. INR 1.9 chest x-ray is showing some improvement. Blood pressure is better controlled with systolic BP 110s, she did have 1 episode in the 90s overnight but was asymptomatic. 04/25 Patient is scheduled for cardiac catheterization today with Dr. Mittal. She denies having any chest pain or shortness of breath at this time. Blood pressure 134/86, heart rate 85, pulse ox 97% on room air. Repeat blood work rev eals hemoglobin 13.9. Creatinine 0.89 and BUN 26, potassium 3.5. Patient has been maintained on heparin drip. Echocardiogram reveals EF of 30 to 35%. RVSP 48. Normally functioning mitral mechanical valve. Moderate to severe aortic regurgitation. 04/26 Yesterday, patient underwent cardiac catheterization which revealed no significant coronary artery disease. Approach was from the groin with no signs of hematoma. Patient is complaining of back pain and leg pain. She has been on IV Lasix 40 mg every 8 hours. She has been on a heparin drip and she will be resumed back on Coumadin. Pharmacy is dosing. Blood pressure 92/63, heart rate 71, pulse ox 97% on room air. PHYSICAL EXAMINATION: This is a 49-year-old female in no apparent distress at the time of my examination. HEENT: Head is atraumatic, normocephalic. Pupils are equal, round. Sclerae anicteric. Conjunctivae are clear. Mucous membranes of the mouth are moist. Neck is supple. There is no jugular venous distention. No carotid bruit is heard. CHEST EXAMINATION: Lungs are clear to auscultation. No chest wall tenderness is noted on palpation or with deep breathing. HEART EXAMINATION: Heart regular rate and rhythm. S1, S2 heard. No murmurs, gallops or rub. ABDOMEN: Soft, nontender. Bowel sounds are heard. obese. EXTREMITIES: 2+ peripheral pulses with no evidence of peripheral edema and no calf tenderness noted. NEUROLOGIC EXAMINATION: Patient is awake, alert and oriented x3. IMPRESSION AND PLAN: History of mitral valve replacement 2020 Supratherapeutic INR on Coumadin NSTEMI Dyspnea Chest pain Nonischemic cardiomyopathy, EF 30-35% PLAN: Continue patient on aspirin 81 mg daily, Lopressor 25 mg twice daily, Aldactone 25 mg daily Start patient on Farxiga 10 mg daily Continue patient on heparin drip, warfarin has been resumed, pharmacy dosing INR goal 2.5+ Discontinue IV Lasix Monitor DANNIELLE, daily weights, electrolytes and renal function Anticipate probable discharge home tomorrow. Patient will follow-up with Dr. Mittal in 1 to 2 weeks. Nurse practitioner note has been reviewed, I agree with documented findings and plan of care. Patient was seen and examined. Objective - Vital Signs Vital signs: Vital Signs Temp 97.8 F 04/26/24 08:04 Pulse 78 04/26/24 08:04 Resp 16 04/26/24 08:04 BP 109/74 04/26/24 08:04 Pulse Ox 97 04/26/24 08:04 FiO2 Intake & Output 04/25/24 04/26/24 04/26/24 18:59 06:59 18:59 Intake Total 943.833 120 Output Total 300 600 175 Balance 643.833 -480 -175 Weight 102.5 kg Intake: IV 260 Invasive Line 2 10 Intake, IV Titration 83.833 Amount Heparin Sod,Pork in 0.45% 83.833 NaCl 25,000 unit In 0.45 % NaCl 1 250ml.bag @ 9.96 UNITS/KG/HR 10 mls/hr IV .Q24H [facility] Rx#:[id number] Oral 600 120 Output: Urine 300 600 175 Other: Voiding Method Toilet Toilet External Catheter # Voids 1 1 - Labs CBC & Chem 7: 04/25/24 06:48 04/25/24 06:48 Labs: Microbiology - Last 24 Hours (Table) 04/23/24 17:59 Blood Culture - Preliminary Blood 04/23/24 17:53 Blood Culture - Preliminary Blood
[2024-04-26 12:36] LABS: Basophils % (A) 1 %; Eosinophils # (A) 0.2 k/uL (0-0.7); Eosinophils % (A) 3 %; HCT 41.7 % (34.0-46.0); Hypochromasia Slight; INR 1.5 (<1.2); Lymphocytes # (A) 1.2 k/uL (1.0-4.8); Lymphocytes % (A) 18 %; MCH 27.4 pg (25.0-35.0); MCHC 31.1 g/dL (31.0-37.0); MCV 88.2 fL (80.0-100.0); Mean Platelet Volume 7.7; Monocytes # (A) 0.5 k/uL (0-1.0); Monocytes % (A) 7 %; Neutrophils # (A) 4.5 k/uL (1.3-7.7); Neutrophils % (A) 68 %; Platelet Count 373 k/uL (150-450); Prothrombin Time 15.1 sec (10.0-12.5); RBC 4.73 m/uL (3.80-5.40); RDW 15.5 % (11.5-15.5); WBC 6.6 k/uL (3.8-10.6)
[2024-04-26 12:43] LABS: ALT 26 U/L (4-34); African American GFR (CKD) 79 (>60 ml/min/1.73 sqM); Albumin 3.9 g/dL (3.5-5.0); Alkaline Phosphatase 82 U/L (38-126); Blood Urea Nitrogen 19 mg/dL (7-17); Calcium 8.4 mg/dL (8.4-10.2); Carbon Dioxide 29 mmol/L (22-30); Chloride 94 mmol/L (98-107); Glucose 100 mg/dL (74-99); Non-African American GFR(CKD) 68 (>60 ml/min/1.73 sqM); Total Bilirubin 0.7 mg/dL (0.2-1.3); Total Protein 7.5 g/dL (6.3-8.2)
[2024-04-26 13:43] LABS: Anion Gap 13 mmol/L; Sodium 136 mmol/L (137-145)
--- NOTE | 2024-04-26 13:48 | PN ---
PROGRESS NOTE DATE OF SERVICE: 04/26/2024 SUBJECTIVE: This is a 49-year-old woman, who was admitted with CHF acute exacerbation, also had mechanical mitral valve. The patient had a 2D echo with Doppler, which was evaluated and showed ejection fraction of 30% to 35%. Mildly increased left ventricular thickness and normal functioning mitral valve and zjisrehn-zc-enknnl aortic regurgitation also. The chest x-ray improved significantly. Cardiology performed a cardiac cath. Official report is pending at this time. PAST MEDICAL HISTORY: Reviewed. REVIEW OF SYSTEMS: A 14-point review is negative except as mentioned earlier. CURRENT MEDICATIONS: Reviewed include Sterling. Rest of medications noted. PHYSICAL EXAMINATION: VITAL SIGNS: Pulse 71, blood pressure 192/60, respirations 16. HEENT: Conjunctivae normal. CARDIOVASCULAR: S1, S2. RESPIRATIONS: A few scattered rhonchi. ABDOMEN: Soft. NERVOUS SYSTEM: Nonfocal. LABORATORY DATA: INR 1.5. ASSESSMENT: 1. Chest pain, possible acute cyv-JW-mysrmbg-elevation myocardial infarction, troponin 0.68, status post cardiac catheterization, normal coronary arteries. 2. Congestive heart failure acute exacerbation, acute on chronic systolic dysfunction, ejection fraction 30% to 35%. 3. Moderate to severe aortic regurgitation with 2D echo. 4. Mechanical mitral valve, normal function. 5. Supratherapeutic INR and Coumadin monitored. 6. Fibromyalgia. 7. Hypertension. 8. Multiple complex medical issues. RECOMMENDATIONS AND DISCUSSION: Recommended to continue current management and continue symptomatic treatment. Closely follow with Cardiology. Continue with diuretics. Otherwise, I will do a repeat chest x- ray. Guarded prognosis. Further recommendations to follow. See orders for further details. The patient will also repeat a BMP. MMODL / IJN: [id number] /
[2024-04-26 15:49] LABS: AST 30 U/L (14-36)
--- NOTE | 2024-04-26 16:55 | P.CARDCATH ---
Description of Procedure: PROCEDURES PERFORMED: Left heart catheterization, bilateral coronary angiography, ultrasound guided arterial access INDICATION: NSTEMI CONSENT:I have discussed the risks, benefits and alternative therapies for the above-mentioned procedure and for both sedation/analgesia as well as necessary blood product administration, if indicated, as they pertain to this patient. The patient has indicated understanding and acceptance of the risks and procedures discussed. PROCEDURE: After the risks, benefits and alternatives of the above mentioned procedure explained in detail with the patient, informed consent was obtained. Patient was taken to the catheterization lab and prepped and draped in usual fashion. Ultrasound guidance was used to assess for arterial access. Patient had significant radial artery spasm previous cath and therefore desired femoral approach. 1% lidocaine was used to anesthetize the right femoral area. A 6- Armenian sheath was placed in the right femoraartery using modified Seldinger technique and ultrasound guidance. Left coronary angiography was performed with a 5-Armenian JL 4.0 catheter and right coronary angiography was performed with a 5-Armenian FR4.0 catheter in various views. A 5-Armenian FR4 catheter was inserted into the left ventricle and pressure measurements were obtained. The right radial sheath was removed and a TR band was placed with hemostasis achieved. The patient tolerated the procedure well. Patient was transported back to the post catheterization holding area in stable condition. Conscious Sedation: Patient was monitored under the direct supervision of myself for conscious sedation using Versed and fentanyl for a total duration of 22 minutes HEMODYNAMICS: Ao: 132/76 LV: 128/8, LVEDP 12 SELECTIVE CORONARY ARTERIOGRAPHY: LEFT MAIN: The left main is a large caliber vessel which bifurcates into the LAD and circumflex. There is no significant stenosis. LEFT ANTERIOR DESCENDING CORONARY ARTERY: LAD is a large caliber vessel which wraps around to the apex. There is no significant stenosis. LEFT CIRCUMFLEX CORONARY ARTERY: Left circumflex is a moderate caliber vessel without significant stenosis. RIGHT CORONARY ARTERY: The right coronary artery is a large caliber vessel which gives off a PDA and PLV branch and is the dominant vessel. There is no significant stenosis. FINAL IMPRESSION: 1. Normal coronary arteries as described above. 2. Normal left sided filling pressures PLAN: 1. Aggressive risk factor modification per most recent ACC/AHA guidelines. 2. Follow-up in the office in 1-2 weeks. 3. Given episodes of NSTEMI/ chest pain as well as recurrent loss of vision, consider workup of embolic source. Consider SHELBY.
[2024-04-26] MEDS: HEPARIN SODIUM 1,000 UN/ML (10ML VL) IV ONE (17:19)
[2024-04-26] MEDS: WARFARIN 2 MG TAB PO ONE (17:19)
[2024-04-26] MEDS: HEPARIN SOD,PORK IN 0.45% NACL 25,000 UNIT in 0.45% NACL 1 250ML.BAG IV SCH (17:20)
[2024-04-26 18:17] LABS: Basophils # (A) 0.1 k/uL (0-0.2); Basophils % (A) 1 %; Eosinophils # (A) 0.2 k/uL (0-0.7); Eosinophils % (A) 3 %; HCT 41.7 % (34.0-46.0); Hypochromasia Slight; Lymphocytes # (A) 1.9 k/uL (1.0-4.8); Lymphocytes % (A) 27 %; MCH 27.7 pg (25.0-35.0); MCHC 31.2 g/dL (31.0-37.0); MCV 88.9 fL (80.0-100.0); Mean Platelet Volume 7.6; Monocytes # (A) 0.5 k/uL (0-1.0); Monocytes % (A) 8 %; Neutrophils # (A) 4.1 k/uL (1.3-7.7); Neutrophils % (A) 59 %; Platelet Count 383 k/uL (150-450); RDW 15.4 % (11.5-15.5)
[2024-04-26 18:50] LABS: INR 1.5 (<1.2); Prothrombin Time 15.8 sec (10.0-12.5)
[2024-04-26 19:17] LABS: Partial Thromboplastin Time 143.8 sec (22.0-30.0)
[2024-04-27] MEDS ORDERED: fentaNYL (PF) 50 MCG/ML 5 ML AMP IVP PRN (08:05)
[2024-04-27] MEDS ORDERED: BENZOCAINE SPRAY 1 CAN TOPICAL PRN (08:05)
[2024-04-27] MEDS ORDERED: MIDAZOLAM 2 MG/2 ML VIAL IV PRN (08:05)
[2024-04-27] MEDS ORDERED: fentaNYL (PF) 50 MCG/ML 2 ML AMP ONE (08:42)
[2024-04-27] MEDS: BENZOCAINE SPRAY 1 CAN MUCOUS MEM ONE (08:55)
[2024-04-27] MEDS: fentaNYL (PF) 50 MCG/1 ML VIAL IVP ONE (08:55)
[2024-04-27] MEDS: IV FLUID CONTINUATION 1,000 ML IV ONE (08:55)
[2024-04-27] MEDS: MIDAZOLAM 2 MG/2 ML VIAL IVP ONE ×2 (08:55→09:05)
[2024-04-27] MEDS: fentaNYL (PF) 50 MCG/ML 2 ML AMP IVP ONE (09:05)
--- NOTE | 2024-04-27 09:32 | P.TEE ---
Description of Procedure(s): Procedure performed: Transesophageal Echocardiogram with color flow doppler, pulsed wave doppler and continuous wave doppler, moderate conscious sedation Moderate conscious sedation: Moderate conscious sedation was supplied with direct supervision of myself using Versed and Fentanyl. Complications: none Indications: Rule out cardiac source of emboli PROCEDURE: After the risks, benefits and alternatives of the above mentioned procedure was explained in detail with the patient, informed consent was obtained. Patient was brought to the lab in a fasting state. Patient was given IV Versed and Fentanyl for sedation. The throat was sprayed with Hurricane to anesthetize the throat. A lubricated Omni probe was then introduced into the esophagus and stomach and multiple views were obtained. 2D echo with color flow doppler, pulsed wave doppler and continuous wave doppler was utilized. Agitated saline bubbles were injected to assess for any intra-atrial shunt. The probe was then removed. Patient tolerated the procedure well. Patient was transferred to the post procedure area in stable and satisfactory condition. FINDINGS: 1. The aortic valve is tricuspid and function normally with moderate central aortic insufficiency. 2. There is a mechanical mitral valve with normal function of the mechanical leaflets. There is is mild paravalvular leak. There is mobile echodenisty which appears more consistent with vegetation than with a thrombus attached to the mitral ring/ leaflet. 3. Tricuspid valve appears to be normal. 4. The interatrial septum is intact. No evidence of PFO. 5. Left atrial appendage is free of clot. 6. Left ventricular EF is 55%
--- NOTE | 2024-04-27 09:51 | XR ---
EXAMINATION TYPE: XR chest 1V portable DATE OF EXAM: 04/27/2024 Comparison: 04/24/2024 Clinical History: 49-year-old female CHF Findings: Median sternotomy wires are present. Heart normal size. Additional prominence with some strandy densi ty at the left base. No consolidation or pleural effusion. Impression: No acute cardiopulmonary process.
[2024-04-27] MEDS: fentaNYL (PF) 50 MCG/ML 2 ML AMP ONE (11:02)
[2024-04-27 11:35] LABS: Basophils # (A) 0.1 k/uL (0-0.2); Basophils % (A) 1 %; Eosinophils # (A) 0.2 k/uL (0-0.7); Eosinophils % (A) 3 %; HCT 40.3 % (34.0-46.0); HGB 12.7 gm/dL (11.4-16.0); Lymphocytes # (A) 1.1 k/uL (1.0-4.8); Lymphocytes % (A) 20 %; MCH 27.9 pg (25.0-35.0); MCHC 31.5 g/dL (31.0-37.0); MCV 88.5 fL (80.0-100.0); Mean Platelet Volume 7.4; Monocytes # (A) 0.4 k/uL (0-1.0); Monocytes % (A) 6 %; Neutrophils # (A) 3.8 k/uL (1.3-7.7); Neutrophils % (A) 68 %; Platelet Count 374 k/uL (150-450); RBC 4.56 m/uL (3.80-5.40); RDW 15.3 % (11.5-15.5); WBC 5.7 k/uL (3.8-10.6)
[2024-04-27 11:44] LABS: INR 1.4 (<1.2); Prothrombin Time 14.2 sec (10.0-12.5)
[2024-04-27 12:45] LABS: Potassium 4.1 mmol/L (3.5-5.1)
[2024-04-27 12:46] LABS: African American GFR (CKD) >90 (>60 ml/min/1.73 sqM); Anion Gap 3 mmol/L; Blood Urea Nitrogen 15 mg/dL (7-17); Calcium 8.7 mg/dL (8.4-10.2); Carbon Dioxide 30 mmol/L (22-30); Chloride 103 mmol/L (98-107); Glucose 134 mg/dL (74-99); Non-African American GFR(CKD) 86 (>60 ml/min/1.73 sqM); Sodium 136 mmol/L (137-145)
--- NOTE | 2024-04-27 13:00 | P.GSCN ---
History of Present Illness Consult date: 04/27/24 Reason for Consult: possible mitral valve endocarditis Requesting physician: Desiree Dean History of present illness: This is a 49 year old female who follows outpatient with Dr. Guevara for primary care in the outpatient setting. She has a previous medical history of severe mitral regurgitation consistent with rheumatic valvular heart disease status post mechanical mitral valve replacement with On-X valve in 2019, hypertension, chronic grade 2 diastolic heart failure, chronic low back pain/fibromyalgia, Crohn's disease, anxiety/depression, ADHD, rheumatoid arthritis, PTSD, and obesity. She presented to the emergency department at [facility] with complaints of shortness of breath and chest pain which has been progressive over the previous few days. Labs on admission revealed elevated troponin 0.082, BNP 2530, INR 5.2, WBC 15.3. Chest x-ray demonstrated findings consistent with CHF. EKG demonstrated NSR. She was admitted for evaluation and treatment with consultation placed to cardiology. Transthoracic echo demonstrated reduced EF 30-35%, moderate to severe aortic insufficiency, mild tricuspid regurgitation. She underwent heart catheterization revealing no CAD. This morning she had a SHELBY demonstrating moderate aortic insufficiency, normally functioning mechanical mitral valve with mild paravalvular leak and mobile echodensity consistent with vegetation vs. thrombus. Due to this finding consultation was placed to cardiac surgery for recommendations. Review of Systems ROS was completed and was negative except as noted - Cardiovascular Reports as per HPI, Reports chest pain, Reports dyspnea on exertion Past Medical History Past Medical History: Chest Pain / Angina, Fibromyalgia, Hypertension, Memory Impairment, Rheumatoid Arthritis (RA), Seizure Disorder, Syncope Additional Past Medical History / Comment(s): irritable bowel, crohn's disease, vertigo, hypoglycemia, diverticulosis, mitral regurgitation History of Any Multi-Drug Resistant Organisms: None Reported Past Surgical History: Cardiac Valve Replacement, Cholecystectomy, Heart Catheterization Additional Past Surgical History / Comment(s): laparoscopy 1994, D&C, colonoscopies, mechanical mitral valve replacememnt in 06/14. Past Anesthesia/Blood Transfusion Reactions: No Reported Reaction Additional Past Anesthesia/Blood Transfusion Reaction / Comm: slow to wake up @times Past Psychological History: ADD/ADHD, Anxiety, Depression, Panic Disorder, PTSD Additional Psychological History / Comment(s): brother may 2023 from drug OD Smoking Status: Never smoker Past Alcohol Use History: None Reported Past Drug Use History: Marijuana Additional Drug Use History / Comment(s): uses marijuana edibles daily for pain management - Past Family History Mother Family Medical History: Congestive Heart Failure (CHF) Father Additional Family Medical History / Comment(s): ETOH, unknown history Medications and Allergies Home Medications Medication Instructions Recorded Confirmed Type lisinopriL [Zestril] 20 mg PO DAILY #30 tab 10/24/23 04/22/24 Rx traZODone HCL 150 mg PO HS #30 tab 10/24/23 04/22/24 Rx Metoprolol Tartrate [Lopressor] 25 mg PO BID 90 Days #180 tab 10/30/23 04/22/24 Rx Warfarin [Coumadin] 5 mg PO DAILY@1800 90 Days #90 tab 10/30/23 04/22/24 Rx Budesonide-Formot 160-4.5 Mcg 2 puff INHALATION RT-BID 30 Days 11/01/23 04/22/24 Rx [Symbicort 160-4.5 Mcg Inhaler] #1 each Dicyclomine [Bentyl] 20 mg PO TID-W/MEALS PRN 04/22/24 04/22/24 History Loratadine [Claritin] 10 mg PO DAILY 04/22/24 04/22/24 History Pantoprazole [Protonix] 40 mg PO DAILY 04/22/24 04/22/24 History Venlafaxine HCl [Effexor XR] 150 mg PO DAILY 04/22/24 04/22/24 History busPIRone HCL 15 mg PO BID 04/22/24 04/22/24 History Allergies Allergy/AdvReac Type Severity Reaction Status Date / Time latex Allergy Rash/Hives Verified 04/22/24 11:06 Penicillins Allergy Anaphylaxis Verified 04/22/24 11:06 prochlorperazine edisylate Allergy Anaphylaxis Verified 04/22/24 11:06 [From Compazine] prochlorperazine maleate Allergy Anaphylaxis Verified 04/22/24 11:06 [From Compazine] sulfamethoxazole Allergy Unknown Verified 04/22/24 11:06 [From Bactrim] trimethoprim [From Bactrim] Allergy Unknown Verified 04/22/24 11:06 atorvastatin [From Lipitor] AdvReac Diarrhea Verified 04/22/24 11:06 Surgical - Exam Vital Signs Temp Pulse Resp BP Pulse Ox 98.4 F 81 20 158/98 95 04/22/24 09:36 04/22/24 09:36 04/22/24 09:36 04/22/24 09:36 04/22/24 09:36 CONSTITUTIONAL: Awake and alert, appears comfortable, cooperative, well- developed, well-nourished, no pain, no acute distress EYES: Pupils equal, round, reactive to light, normal ocular movement ENT: Moist mucous membranes without oral lesions present, edentulous NECK: No masses, no bruits, trachea midline RESPIRATORY: Lungs sounds clear to auscultation bilaterally. Respirations even , nonlabored. Currently on room air with oxygen saturation 98%. Strong cough. No chest wall deformities. No clubbing or cyanosis present CARDIOVASCULAR: S1, S2 present. Regular rate and rhythm, sinus rhythm on telemetry. Palpable peripheral pulses bilaterally. No edema present GASTROINTESTINAL: Abdomen soft, nontender, nondistended without masses or organomegaly noted. There is no rebound or guarding present. Active bowel sounds present 4 quadrants. GENITOURINARY: Deferred INTEGUMENTARY: Skin is warm and dry NEUROLOGIC: Cranial nerves II through XII intact, normal coordination, no obvious motor or sensory deficits, speech is normal MUSKULOSKELETAL: Able to move all extremities, strength equal bilaterally, normal posture PSYCHIATRIC: Alert and oriented to person place and time Results - Labs 04/27/24 10:40 04/27/24 10:40 Abnormal Lab Results - Last 24 Hours (Table) 04/26/24 04/26/24 04/26/24 Range/Units 11:47 11:47 17:45 PT 15.1 H 15.8 H (10.0-12.5) sec INR 1.5 H 1.5 H (<1.2) APTT 143.8 H* (22.0-30.0) sec Sodium 136 L (137-145) mmol/L Chloride 94 L (98-107) mmol/L BUN 19 H (7-17) mg/dL Glucose 100 H (74-99) mg/dL 04/27/24 04/27/24 Range/Units 00:23 10:40 PT 14.2 H (10.0-12.5) sec INR 1.4 H (<1.2) APTT 42.4 H (22.0-30.0) sec Sodium (137-145) mmol/L Chloride (98-107) mmol/L BUN (7-17) mg/dL Glucose (74-99) mg/dL Microbiology - Last 24 Hours (Table) 04/23/24 17:59 Blood Culture - Preliminary Blood 04/23/24 17:53 Blood Culture - Preliminary Blood Diabetes panel 04/26/24 Range/Units 11:47 Sodium 136 L (137-145) mmol/L Potassium 4.0 (3.5-5.1) mmol/L Chloride 94 L (98-107) mmol/L Carbon Dioxide 29 (22-30) mmol/L BUN 19 H (7-17) mg/dL Creatinine 0.97 (0.52-1.04) mg/dL Glucose 100 H (74-99) mg/dL Calcium 8.4 (8.4-10.2) mg/dL AST 30 (14-36) U/L ALT 26 (4-34) U/L Alkaline Phosphatase 82 (38-126) U/L Total Protein 7.5 (6.3-8.2) g/dL Albumin 3.9 (3.5-5.0) g/dL Calcium panel 04/26/24 Range/Units 11:47 Calcium 8.4 (8.4-10.2) mg/dL Albumin 3.9 (3.5-5.0) g/dL Pituitary panel 04/26/24 Range/Units 11:47 Sodium 136 L (137-145) mmol/L Potassium 4.0 (3.5-5.1) mmol/L Chloride 94 L (98-107) mmol/L Carbon Dioxide 29 (22-30) mmol/L BUN 19 H (7-17) mg/dL Creatinine 0.97 (0.52-1.04) mg/dL Glucose 100 H (74-99) mg/dL Calcium 8.4 (8.4-10.2) mg/dL Adrenal panel 04/26/24 Range/Units 11:47 Sodium 136 L (137-145) mmol/L Potassium 4.0 (3.5-5.1) mmol/L Chloride 94 L (98-107) mmol/L Carbon Dioxide 29 (22-30) mmol/L BUN 19 H (7-17) mg/dL Creatinine 0.97 (0.52-1.04) mg/dL Glucose 100 H (74-99) mg/dL Calcium 8.4 (8.4-10.2) mg/dL Total Bilirubin 0.7 (0.2-1.3) mg/dL AST 30 (14-36) U/L ALT 26 (4-34) U/L Alkaline Phosphatase 82 (38-126) U/L Total Protein 7.5 (6.3-8.2) g/dL Albumin 3.9 (3.5-5.0) g/dL - Imaging Chest x-ray: report reviewed, image reviewed EKG: image reviewed (TTE and SHELBY films reviewed with Dr. Carvajal) Assessment and Plan Assessment: Echodensity on mechanical mitral valve Chest pain, shortness of breath on admission History of severe mitral regurgitation consistent with rheumatic valvular heart disease status post mechanical mitral valve replacement with On-X valve in 2019 Hypertension Acute on chronic diastolic heart failure Chronic low back pain/fibromyalgia Crohn's disease Anxiety/depression ADHD Rheumatoid arthritis PTSD Obesity Plan: The patient was seen and examined with Dr. Carvajal. Chart/diagnostics were reviewed, including echos. The patient admits to being off coumadin for 6 months due to insurance and loss of primary care physician. She is currently back on her coumadin but has had issues with regulating INR. She has remained afebrile, blood cultures from 04/23 have been negative, WBC normalized after 2 days despite no antibiotics being given. Doubt vegetation, much more likely thrombus. Recommend continuing heparin gtt and restarting coumadin. Repeat echo 2-3 weeks. No surgical intervention at this time. Management of other comorbidities per internal medicine, cardio. Thank you for this consult. Please call us with any further questions. I have personally seen and examined the patient, performed the documentation and the assessment and plan as written. Number of minutes spent on the visit: 30. GINETTE Gonzales Attending Addendum: Pt seen and evaluated with COMMUNITY MARKETING MANAGER above. Agree with her assessment and plan. This is a 49 year-old F s/p mechanical mitral valve replacement for rheumatic heart disease 3 years ago who presents with sob. SHELBY reveal small thrombus on her mechanical prosthetic valve. Of note, the patient stopped taking her coumadin for 6 months from March 2023-Oct 2023. Her blood cultures are negative and the prosthetic valve is functioning properly with a very small isacc-valvular leak. Recommend hep gtt while here and strict coumadin follow-up in the outpatient setting with repeat echo in 2-3 weeks. I spent 45 minutes reviewing the data and discussing the plan of care with the patient and the care team. Time with Patient: Greater than 30
--- NOTE | 2024-04-27 13:14 | CT ---
EXAMINATION TYPE: CT brain wo con CT DLP: 7.4 mGycm, Automated exposure control for dose reduction was used. DATE OF EXAM: 04/27/2024 12:55 PM COMPARISON: None. CLINICAL INDICATION:Female, 49 years old with history of vision loss with vegetation in heart., visio n loss TECHNIQUE: Brain: Axial CT images of the brain were obtained with coronal and sagittal reformats created and rev iewed. Contrast used: None. Oral contrast used: None. FINDINGS: Brain: Extra-axial spaces: No abnormal extra-axial fluid collections. Ventricular system: Within normal limits Cerebral parenchyma: Tiny hypodense area in the right basal ganglia which is new from 2018. No acute intraparenchymal hemorrhage or mass effect. The garcia-white junction is well differentiated. Cerebellum: Unremarkable. Mass effect: No evidence of midline shift. Intracranial vasculature: unremarkable Soft tissues: Normal. Calvarium/osseous structures: No depressed skull fracture. Paranasal sinuses and mastoid air cells: Mild scattered paranasal sinus disease. Visualized orbits: Orbital contents are intact. IMPRESSION: New from 2018 hypodense area in the right basal ganglia. Consider evaluation with MRI to rule out str shantelle.
--- NOTE | 2024-04-27 13:18 | CT ---
EXAMINATION TYPE: CT angio head neck CT DLP: 2087.4 mGycm, Automated exposure control for dose reduction was used. DATE OF EXAM: 04/27/2024 12:58 PM COMPARISON: None. CLINICAL INDICATION:Female, 49 years old with history of vision loss with vegatation in heart.; PHH, vision loss TECHNIQUE: Axially acquired helical CT angiogram of the head and neck was obtained with contrast. Axi al images are supplemented with 3D reconstructions and MIP images which were post-processed at an in dependent workstation. NASCET criteria used. Contrast used:65ml mL of Isovue 370 without and with IV Contrast, Oral contrast used: None. FINDINGS: CTA HEAD: No evidence of acute intracranial hemorrhage, mass effect, or midline shift. The ventricles, sulci, a nd cisterns are unremarkable. The visualized portions of the internal carotid arteries, middle cerebral arteries, anterior cerebral arteries, and posterior cerebral arteries are patent. The ophthalmic arteries bilaterally appear pat ent. The basilar and vertebral arteries are patent. CTA NECK: Right Carotid System: The common carotid artery and external carotid artery are patent. The carotid bifurcation demonstrate s no evidence of hemodynamically significant stenosis. The remaining portions of the internal carotid artery demonstrate normal size without significant narrowing. Left Carotid System: The common carotid artery and external carotid artery are patent. The carotid bifurcation demonstrate s no evidence of hemodynamically significant stenosis. The remaining portions of the internal carotid artery demonstrate normal size without significant narrowing. Vertebral arteries are patent without evidence hemodynamically significant stenosis. There is a three-vessel aortic arch. The origins of the great vessels are patent. No evidence of hemo dynamically significant stenosis. IMPRESSION: 1. No evidence of dissection of the cervical internal carotid arteries or vertebral arteries or any e vidence of significant stenosis at the carotid bifurcations. 2. No evidence of intracranial high-grade stenosis or intracranial aneurysm.
--- NOTE | 2024-04-27 13:34 | P.PN ---
Subjective Progress Note Date: 04/27/24 History of present illness: Patient is a pleasant 49-year-old significant past medical history of mitral v alve replacement in 2019, rheumatoid arthritis seizure disorder, Crohn's disease, presented to the emergency department with complaints of shortness of breath and chest pain. She does not smoke, no alcohol. She reports over the past 3 days her shortness of breath has been getting worse to the point where she was unable to lay flat and unable to walk short distances. She did have episode of chest pain yesterday, describes it as a pain of pain on her left chest. She also has been breaking out in sweats for the past 1 week and has been significantly worse over the past 2 days. He had followed with Dr. Winters previously but has had insurance issues and has not seen a development consultant recently. She reports she is having difficulty controlling her INR levels. She was last seen in the hospital 09/2023 and echocardiogram at that time with EF 55-60%, mild LVH, mitral valve prosthesis with normal function. Labs reviewed troponin abnormal 0.082, 0.682, 0.796. BNP 2530, INR on arrival was 5.2, 4.6 this morning. WBC 15.3. She denies any recent illness, fevers or chills. She was started on Lasix 40 mg IV every 8 hours. Chest x-ray shows mildmoderate central vascular congestion. She does not have any chest pain today. She still has shortness of breath but is able to walk to the bathroom easier. She denies any swelling in her legs but feels like her abdomen is more distended swollen. She has been more fatigued. Blood pressures have been higher recently at other appointmens. ECHO 04/23/24 with EF 30-35%, normal mitral valve prosthesis, moderate to severe aortic regurgitation. She does see a psychiatrist for her depression, no recent increase in stressors. 04/24 She reports that her breathing is significantly better. Denies any chest pain or pressure. She is still having occasional sweats. Was reviewed this morning: INR 3.1, potassium 3.9, creatinine 0.88. INR 1.9 chest x-ray is showing some improvement. Blood pressure is better controlled with systolic BP 110s, she did have 1 episode in the 90s overnight but was asymptomatic. 04/25 Patient is scheduled for cardiac catheterization today with Dr. Mittal. She denies having any chest pain or shortness of breath at this time. Blood pressure 134/86, heart rate 85, pulse ox 97% on room air. Repeat blood work rev eals hemoglobin 13.9. Creatinine 0.89 and BUN 26, potassium 3.5. Patient has been maintained on heparin drip. Echocardiogram reveals EF of 30 to 35%. RVSP 48. Normally functioning mitral mechanical valve. Moderate to severe aortic regurgitation. 04/26 Yesterday, patient underwent cardiac catheterization which revealed no significant coronary artery disease. Approach was from the groin with no signs of hematoma. Patient is complaining of back pain and leg pain. She has been on IV Lasix 40 mg every 8 hours. She has been on a heparin drip and she will be resumed back on Coumadin. Pharmacy is dosing. Blood pressure 92/63, heart rate 71, pulse ox 97% on room air. 04/27 Patient underwent SEHLBY today which revealed aortic valve tricuspid and functioning normally with moderate central aortic insufficiency. Mechanical mitral valve with normal functioning mechanical leaflets. Mild paravalvular leak. Mobile echodensity which appears more consistent with vegetation then with a thrombus attached to the mitral ring leaflet. No evidence of PFO. Left atrial appendage is free of clot. EF 55%. Patient returned to her room and consults were placed with neurology, cardiothoracic surgery and infectious disease. Patient apparently has been having transient vision loss. Blood pressure 111/69, heart rate 87. Pulse ox 98% on room air. Repeat blood work reveals INR 1.4. Patient has been resumed on Coumadin pharmacy dosing. Hemoglobin 12.7. Creatinine 0.8. Blood cultures are showing no growth PHYSICAL EXAMINATION: This is a 49-year-old female in no apparent distress at the time of my examination. HEENT: Head is atraumatic, normocephalic. Pupils are equal, round. Sclerae anic teric. Conjunctivae are clear. Mucous membranes of the mouth are moist. Neck is supple. There is no jugular venous distention. No carotid bruit is heard. CHEST EXAMINATION: Lungs are clear to auscultation. No chest wall tenderness is noted on palpation or with deep breathing. HEART EXAMINATION: Heart regular rate and rhythm. S1, S2 heard. No murmurs, gallops or rub. ABDOMEN: Soft, nontender. Bowel sounds are heard. obese. EXTREMITIES: 2+ peripheral pulses with no evidence of peripheral edema and no calf tenderness noted. NEUROLOGIC EXAMINATION: Patient is awake, alert and oriented x3. IMPRESSION AND PLAN: History of mitral valve replacement 2020 Supratherapeutic INR on Coumadin NSTEMI Dyspnea Chest pain Nonischemic cardiomyopathy, EF 30-35% Mechanical valve with possible vegetation on SHELBY PLAN: Continue patient on aspirin 81 mg daily, Lopressor 25 mg twice daily, Aldactone 25 mg daily Start patient on Farxiga 10 mg daily Continue warfarin, pharmacy dosing INR goal 2.5+ Consults added for infectious disease, cardiothoracic surgery, and neurology Nurse practitioner note has been reviewed, I agree with documented findings and plan of care. Patient was seen and examined. Objective - Vital Signs Vital signs: Vital Signs Temp 97.7 F 04/27/24 08:30 Pulse 69 04/27/24 08:30 Resp 20 04/27/24 08:30 BP 109/76 04/27/24 08:30 Pulse Ox 99 04/27/24 08:30 FiO2 Intake & Output 04/26/24 04/27/24 04/27/24 18:59 06:59 18:59 Intake Total 1250 52.778 50 Output Total 1150 350 Balance 100 -297.222 50 Weight 102.9 kg Intake: IV 50 Intake, IV Titration 52.778 Amount Heparin Sod,Pork in 0.45% 52.778 NaCl 25,000 unit In 0.45 % NaCl 1 250ml.bag @ 9.76 UNITS/KG/HR 10.004 mls/ hr IV .Q24H [facility] Rx#: [id number] Oral 1250 Output: Urine 1150 350 Other: Voiding Method Toilet Toilet External Catheter External Catheter # Voids 1 - Labs CBC & Chem 7: 04/27/24 10:40 04/27/24 10:40 Labs: Abnormal Lab Results - Last 24 Hours (Table) 04/26/24 04/26/24 04/26/24 Range/Units 11:47 11:47 17:45 PT 15.1 H 15.8 H (10.0-12.5) sec INR 1.5 H 1.5 H (<1.2) APTT 143.8 H* (22.0-30.0) sec Sodium 136 L (137-145) mmol/L Chloride 94 L (98-107) mmol/L BUN 19 H (7-17) mg/dL Glucose 100 H (74-99) mg/dL 04/27/24 Range/Units 00:23 PT (10.0-12.5) sec INR (<1.2) APTT 42.4 H (22.0-30.0) sec Sodium (137-145) mmol/L Chloride (98-107) mmol/L BUN (7-17) mg/dL Glucose (74-99) mg/dL Microbiology - Last 24 Hours (Table) 04/23/24 17:59 Blood Culture - Preliminary Blood 04/23/24 17:53 Blood Culture - Preliminary Blood
[2024-04-27] MEDS: WARFARIN 5 MG TAB PO ONE (17:26)
--- NOTE | 2024-04-27 17:43 | P.CNNES ---
History of Present Illness Consult date: 04/27/24 Requesting physician: Desiree Dean Reason for Consult: transient vision loss History of Present Illness: This is a 49-year-old woman with history of mitral valve replacement in 2019, rheumatoid arthritis, Crohn disease who present emergency department because of shortness of breath and chest pain. Neurology is consulted for transient vision loss. States that for the past 1 year she has been having transient blurry vision and happens maybe once a month and it lasts a few seconds at a. She states that she has been having headache and happens at different regions in half and over the temporal, occipital, parietal or central region and states the headache is usually 11/10 to a throbbing class IV hours does have nausea but no vomiting does have photophobia and phonophobia. She has to be in a quiet dark place. She states if she would have the headache then visual disturbance and sometimes without the headache. She sees Dr. Timmons for neurological care and had images and was told she has multiple white matter changes and there is a concern for demyelinating disease and she was referred to [facility] neurology team for further evaluation. She states her symptoms resolved with Topamax to 50 mg as needed. It seems that she had episode yesterday. Denies any history of strokes. Patient denies any tobacco use or illicit drug use During this hospital visit she Underwent transesophageal echocardiogram today which showed mobile echodensity which appears more consistent with vegetations than thrombus attached to the mitral ring leaflet per the cardiology team. This hospital visit her initial INR is 5.2 then because of the SHELBY the patient was placed on heparin drip. Reviewed the rest of the lab workup. Review of Systems The positive and negative as per HPI. Past Medical History Past Medical History: Chest Pain / Angina, Fibromyalgia, Hypertension, Memory Impairment, Rheumatoid Arthritis (RA), Seizure Disorder, Syncope Additional Past Medical History / Comment(s): irritable bowel, crohn's disease, vertigo, hypoglycemia, diverticulosis, mitral regurgitation History of Any Multi-Drug Resistant Organisms: None Reported Past Surgical History: Cardiac Valve Replacement, Cholecystectomy, Heart Catheterization Additional Past Surgical History / Comment(s): laparoscopy 1994, D&C, colonoscopies, mechanical mitral valve replacememnt in 06/14. Past Anesthesia/Blood Transfusion Reactions: No Reported Reaction Additional Past Anesthesia/Blood Transfusion Reaction / Comment(s): slow to wake up @times Past Psychological History: ADD/ADHD, Anxiety, Depression, Panic Disorder, PTSD Additional Psychological History / Comment(s): brother may 2023 from drug OD Smoking Status: Never smoker Past Alcohol Use History: None Reported Past Drug Use History: Marijuana Additional Drug Use History / Comment(s): uses marijuana edibles daily for pain management - Past Family History Mother Family Medical History: Congestive Heart Failure (CHF) Father Additional Family Medical History / Comment(s): ETOH, unknown history Medications and Allergies Home Medications Medication Instructions Recorded Confirmed Type lisinopriL [Zestril] 20 mg PO DAILY #30 tab 10/24/23 04/22/24 Rx traZODone HCL 150 mg PO HS #30 tab 10/24/23 04/22/24 Rx Metoprolol Tartrate [Lopressor] 25 mg PO BID 90 Days #180 tab 10/30/23 04/22/24 Rx Warfarin [Coumadin] 5 mg PO DAILY@1800 90 Days #90 tab 10/30/23 04/22/24 Rx Budesonide-Formot 160-4.5 Mcg 2 puff INHALATION RT-BID 30 Days 11/01/23 04/22/24 Rx [Symbicort 160-4.5 Mcg Inhaler] #1 each Dicyclomine [Bentyl] 20 mg PO TID-W/MEALS PRN 04/22/24 04/22/24 History Loratadine [Claritin] 10 mg PO DAILY 04/22/24 04/22/24 History Pantoprazole [Protonix] 40 mg PO DAILY 04/22/24 04/22/24 History Venlafaxine HCl [Effexor XR] 150 mg PO DAILY 04/22/24 04/22/24 History busPIRone HCL 15 mg PO BID 04/22/24 04/22/24 History Allergies Allergy/AdvReac Type Severity Reaction Status Date / Time latex Allergy Rash/Hives Verified 04/22/24 11:06 Penicillins Allergy Anaphylaxis Verified 04/22/24 11:06 prochlorperazine edisylate Allergy Anaphylaxis Verified 04/22/24 11:06 [From Compazine] prochlorperazine maleate Allergy Anaphylaxis Verified 04/22/24 11:06 [From Compazine] sulfamethoxazole Allergy Unknown Verified 04/22/24 11:06 [From Bactrim] trimethoprim [From Bactrim] Allergy Unknown Verified 04/22/24 11:06 atorvastatin [From Lipitor] AdvReac Diarrhea Verified 04/22/24 11:06 Physical Examination - Vital Signs Vital Signs: Vital Signs Temp Pulse Resp BP Pulse Ox 04/27/24 16:00 98.1 F 79 20 94/60 97 04/27/24 11:29 98.2 F 87 20 111/69 98 04/27/24 09:56 76 20 106/57 04/27/24 08:30 97.7 F 69 20 109/76 99 04/27/24 08:00 97.7 F 69 20 109/76 99 04/27/24 04:00 98 F 82 16 92/62 97 04/27/24 02:00 77 18 04/27/24 00:00 98 F 77 18 104/59 100 04/26/24 20:00 98.2 F 78 16 103/67 97 Intake and Output 04/27/24 04/27/24 04/27/24 06:59 14:59 22:59 Intake Total 29.102 50 Output Total 350 Balance -320.898 50 Intake: IV 50 Intake, IV Titration 29.102 Amount Heparin Sod,Pork in 0.45% 29.102 NaCl 25,000 unit In 0.45 % NaCl 1 250ml.bag @ 9.76 UNITS/KG/HR 10.004 mls/ hr IV .Q24H [facility] Rx#: [id number] Output: Urine 350 Other: Voiding Method Toilet External Catheter Weight 102.9 kg GENERAL: The patient is sitting in a recliner chair and is not in acute distress. NEUROLOGICAL: Higher mental function: The patient is awake, alert, oriented to self, place and time. Patient is following commands. No aphasia and no neglect. Cranial nerves: The pupils are round, equal and reactive to light and accommodation. Visual correa are full to confrontation throughout. Extraocular movement is intact no nystagmus is noted. Facial sensation is normal to touch throughout. The facial strength is normal throughout. Hearing is normal bilaterally to hand rub. Tongue is midline and moved [id number] without any difficulty. No dysarthria is noted. Shoulder shrug is normal bilaterally. Motor: The strength is 5 over 5 throughout. Normal tone and bulk. Cerebellum: Normal finger to nose heel to bethea bilaterally. Sensation: Sensation is normal to touch throughout. Reflexes (right/left): 2+ throughout. Plantars are downgoing bilaterally. Results - Laboratory Findings CBC and BMP: 04/27/24 10:40 04/27/24 10:40 Abnormal Lab Findings: Abnormal Labs 04/22/24 04/22/24 04/22/24 10:35 10:35 10:35 WBC 16.1 H RBC Hct RDW Neutrophils # 13.8 H PT 51.2 H INR 5.2 H* APTT 44.3 H Sodium Potassium 3.4 L Chloride BUN Glucose 170 H Calcium 8.2 L Magnesium 1.4 L AST 45 H Troponin I 04/22/24 04/22/24 04/22/24 10:35 14:48 17:55 WBC RBC Hct RDW Neutrophils # PT INR APTT Sodium Potassium Chloride BUN Glucose Calcium Magnesium AST Troponin I 0.082 H* 0.682 H* 0.796 H* 04/23/24 04/23/24 04/23/24 05:49 05:49 05:49 WBC 15.3 H RBC Hct RDW Neutrophils # 12.5 H PT 45.0 H INR 4.6 H APTT Sodium Potassium Chloride 108 H BUN Glucose 137 H Calcium Magnesium AST Troponin I 04/24/24 04/24/24 04/24/24 06:43 06:43 06:43 WBC RBC 5.43 H Hct 47.6 H RDW 15.6 H Neutrophils # PT 30.7 H INR 3.1 H APTT Sodium Potassium Chloride BUN 19 H Glucose 109 H Calcium Magnesium AST Troponin I 04/25/24 04/25/24 04/25/24 06:48 06:48 06:48 WBC RBC Hct RDW 15.6 H Neutrophils # PT 19.6 H INR 1.9 H APTT Sodium Potassium Chloride BUN 26 H Glucose 107 H Calcium Magnesium AST Troponin I 04/26/24 04/26/24 04/26/24 11:47 11:47 17:45 WBC RBC Hct RDW Neutrophils # PT 15.1 H 15.8 H INR 1.5 H 1.5 H APTT 143.8 H* Sodium 136 L Potassium Chloride 94 L BUN 19 H Glucose 100 H Calcium Magnesium AST Troponin I 04/27/24 04/27/24 04/27/24 00:23 10:40 10:40 WBC RBC Hct RDW Neutrophils # PT 14.2 H INR 1.4 H APTT 42.4 H Sodium 136 L Potassium Chloride BUN Glucose 134 H Calcium Magnesium AST Troponin I 04/27/24 15:58 WBC RBC Hct RDW Neutrophils # PT INR APTT 45.9 H Sodium Potassium Chloride BUN Glucose Calcium Magnesium AST Troponin I Assessment and Plan Assessment: This is a 49-year-old woman with history of mitral valve replacement in 2019 and is on Coumadin, rheumatoid arthritis, Crohn's disease who presented emergency department because of shortness of breath and chest pain. She underwent transesophageal echocardiogram and was felt to have mobile echodensity which appears more consistent with vegetation than a thrombus attached to the mitral ring leaflet per cardiology. She had an episode yesterday therefore neurology was consulted for concern for stroke. Patient states that she has been having these episodes for the past 1 year and she has headaches usually with them and sometimes she does not lasting for few seconds. She feels that episodes are and the headache resolved with Topamax and she follows up with a neurologist as outpatient. Recurrent Transient blurry vision for past one year and had one episode yesterday: Seems more ocular migraine. She feels her symptoms resolve with Topmax but is on PRN and was told by her neurologist (Dr. Ty she has mu ltiple white matter changes and there is concern for demylinating disease and is in process of seeing [facility] Neurology team as outpatient referred by her Neurologist). Mobile echodensity attached to the mitral ring leaflet and cardiology felt appeared more consistent with vegetation and thrombus History of mitral valve replacement 2019 and is on Coumadin Underlying history of rheumatoid arthritis Underlying history of Crohn's disease Plan: I ordered CT of the head and CT angiography of the head and neck. If negative we will pursue MRI of the brain. Patient states she has improvement with a headache as well as visual disturbance with Topamax 50 mg as needed that was prescribed by her neurologist as an outpatient. Therefore I will change it to Topamax 50 mg 1 tablet twice daily scheduled. Order TSH, vitamin B12. Cardiothoracic surgery team is consulted Infection disease team is consulted Patient is on heparin drip in addition the patient is on aspirin 81 mg daily. Will defer the rest of the medical management to the primary and other specialist The plan is discussed with patient. Thank you for the consultation. Time with Patient: Greater than 30
[2024-04-27] MEDS: HYDROcodone/APAP 7.5-325MG 1 EACH TAB PO PRN (18:58)
--- NOTE | 2024-04-27 20:40 | PN ---
PROGRESS NOTE DATE OF SERVICE: 04/27/2024 SUBJECTIVE: This is a 49-year-old woman, who was admitted with CHF acute exacerbation, also had mechanical mitral valve. Thrombus was suspected in the SHELBY. We are also doing evaluation to rule out the possibility of vegetation. The cardiac cath showed normal coronary arteries and recommend risk factor modification. The patient is being closely monitored and the patient is off Coumadin because of insurance reasons and currently started on IV heparin. The patient is complaining of anxiety as well as significant pain also. PAST MEDICAL HISTORY: Reviewed. REVIEW OF SYSTEMS: A 14-point review is negative except as mentioned earlier. CURRENT MEDICATIONS: Reviewed include Xanax, rest of medications noted. PHYSICAL EXAMINATION: VITAL SIGNS: Pulse is 87, blood pressure 111/69, respirations 20. HEENT: Conjunctivae normal. NECK: No JVD. CARDIOVASCULAR: S1, S2 muffled. RESPIRATIONS: Breath sounds diminished at the bases. No rhonchi. No crackles. ABDOMEN: Soft. NERVOUS SYSTEM: Nonfocal. LABORATORY DATA: INR 1.4, sodium 130. Rest of the labs are noted. ASSESSMENT: 1. Chest pain possible acute [id number] elevation myocardial infarction. Troponin 0.68. Status post cardiac catheterization, normal coronary arteries, on medical treatment. 2. Congestive heart failure acute exacerbation, acute on chronic systolic dysfunction, ejection fraction 30% to 35%. 3. Possible vegetation in the mitral valve, status post SHELBY. 4. Moderate aortic regurgitation in the SHELBY. 5. Supratherapeutic INR on Coumadin present on presentation, on IV heparin at this time. 6. Fibromyalgia. 7. Hypertension. 8. Multiple complex medical issues. RECOMMENDATIONS AND DISCUSSION: Recommend to continue current medications, continue symptomatic treatment. Otherwise, as mentioned earlier, IV heparin. Cardiothoracic Surgery has evaluated the patient and Infectious Disease also evaluated the patient. The possibility of thrombus is being considered at this time. The cultures are negative so far. Continue with IV heparin and I would also recommend a procalcitonin. Sedimentation rate and CRP has also been ordered. Symptomatic treatment with pain. Also recommend anxiety medication also. Further recommendations to follow. MMODL / IJN: [id number] /
[2024-04-27] MEDS: TOPIRAMATE 25 MG TAB PO SCH (22:21)
[2024-04-27] MEDS: SACUBITRIL/VALSARTAN 24 MG-26 MG TABLET PO SCH (22:22)
--- NOTE | 2024-04-27 23:03 | P.CONS ---
History of Present Illness - Reason for Consult Consult date: 04/27/24 Vegetation on mitral valve Requesting physician: Desiree Dean - Chief Complaint Chest pain and shortness of breath x few days - History of Present Illness Patient is a 49-year-old female with a past medical history significant for fibromyalgia hypertension rheumatoid arthritis seizure disorder in this patient who is s/p mechanical aortic valve replacement few years ago patient presented to [facility] ER about 5 days ago for evaluation of chest pain and shortness of breath that apparently was getting worse for 3 days before patient presented to hospital patient denies having any fever or any chills denies any cough or sputum production no nausea no vomiting no abdominal pain or any diarrhea patient on presentation to the hospital was afebrile and no fever have recorded subsequently patient was not tachycardic or hypertensive did have some mild hypoxemia with O2 sats of 92% I points but did not require any supplemental oxygen patient did have elevated white count 16.1 admission however white count has subsequently normalized without getting any antibiotic therapy patient did have a subtherapeutic INR apparently the patient was not taking her Coumadin.. Was normal liver enzymes are normal blood culture was done which has been negative so far patient did have a heart catheterization normal coronary arteries normal left-sided filling pressure patient did have a SHELBY completed this morning with a mechanical mitral wall normal function mild perivalvular leak and mobile echodensity which appears more consistent with vegetation that has prompted this consultation patient subsequently has been evaluated by CT surgery who have reviewed the pictures and their opinion is mostly thrombus then vegetation Review of Systems Positive point and negatives has been mentioned in the HPI, complete review of systems was performed and all other systems are negative Past Medical History Past Medical History: Chest Pain / Angina, Fibromyalgia, Hypertension, Memory Impairment, Rheumatoid Arthritis (RA), Seizure Disorder, Syncope Additional Past Medical History / Comment(s): irritable bowel, crohn's disease, vertigo, hypoglycemia, mechanical heart valve, diverticulosis History of Any Multi-Drug Resistant Organisms: None Reported Past Surgical History: Cardiac Valve Replacement, Cholecystectomy, Heart Catheterization Additional Past Surgical History / Comment(s): laparoscopy 1994, D&C, colonoscopies, mitral valve replacememnt in 06/14. Past Anesthesia/Blood Transfusion Reactions: No Reported Reaction Additional Past Anesthesia/Blood Transfusion Reaction / Comm: slow to wake up @times Past Psychological History: ADD/ADHD, Anxiety, Depression, Panic Disorder, PTSD Additional Psychological History / Comment(s): brother may 2023 from drug OD Smoking Status: Never smoker Past Alcohol Use History: None Reported Past Drug Use History: Marijuana Additional Drug Use History / Comment(s): uses marijuana edibles daily for pain management - Past Family History Mother Family Medical History: Congestive Heart Failure (CHF) Father Additional Family Medical History / Comment(s): ETOH, unknown history Medications and Allergies Home Medications Medication Instructions Recorded Confirmed Type lisinopriL [Zestril] 20 mg PO DAILY #30 tab 10/24/23 04/22/24 Rx traZODone HCL 150 mg PO HS #30 tab 10/24/23 04/22/24 Rx Metoprolol Tartrate [Lopressor] 25 mg PO BID 90 Days #180 tab 10/30/23 04/22/24 Rx Warfarin [Coumadin] 5 mg PO DAILY@1800 90 Days #90 tab 10/30/23 04/22/24 Rx Budesonide-Formot 160-4.5 Mcg 2 puff INHALATION RT-BID 30 Days 11/01/23 04/22/24 Rx [Symbicort 160-4.5 Mcg Inhaler] #1 each Dicyclomine [Bentyl] 20 mg PO TID-W/MEALS PRN 04/22/24 04/22/24 History Loratadine [Claritin] 10 mg PO DAILY 04/22/24 04/22/24 History Pantoprazole [Protonix] 40 mg PO DAILY 04/22/24 04/22/24 History Venlafaxine HCl [Effexor XR] 150 mg PO DAILY 04/22/24 04/22/24 History busPIRone HCL 15 mg PO BID 04/22/24 04/22/24 History Allergies Allergy/AdvReac Type Severity Reaction Status Date / Time latex Allergy Rash/Hives Verified 04/22/24 11:06 Penicillins Allergy Anaphylaxis Verified 04/22/24 11:06 prochlorperazine edisylate Allergy Anaphylaxis Verified 04/22/24 11:06 [From Compazine] prochlorperazine maleate Allergy Anaphylaxis Verified 04/22/24 11:06 [From Compazine] sulfamethoxazole Allergy Unknown Verified 04/22/24 11:06 [From Bactrim] trimethoprim [From Bactrim] Allergy Unknown Verified 04/22/24 11:06 atorvastatin [From Lipitor] AdvReac Diarrhea Verified 04/22/24 11:06 Physical Exam Vitals: Vital Signs Temp Pulse Resp BP Pulse Ox 04/27/24 11:29 98.2 F 87 20 111/69 98 04/27/24 09:56 76 20 106/57 04/27/24 08:30 97.7 F 69 20 109/76 99 04/27/24 08:00 97.7 F 69 20 109/76 99 04/27/24 04:00 98 F 82 16 92/62 97 04/27/24 02:00 77 18 04/27/24 00:00 98 F 77 18 104/59 100 04/26/24 20:00 98.2 F 78 16 103/67 97 04/26/24 15:20 98.1 F 80 16 101/69 99 04/26/24 13:46 71 16 Intake and Output 04/26/24 04/27/24 04/27/24 22:59 06:59 14:59 Intake Total 260.676 29.102 50 Output Total 375 350 Balance -114.324 -320.898 50 Intake: IV 50 Intake, IV Titration 23.676 29.102 Amount Heparin Sod,Pork in 0.45% 23.676 29.102 NaCl 25,000 unit In 0.45 % NaCl 1 250ml.bag @ 9.76 UNITS/KG/HR 10.004 mls/ hr IV .Q24H [facility] Rx#: [id number] Oral 237 Output: Urine 375 350 Other: Voiding Method Toilet Toilet External Catheter External Catheter Weight 102.9 kg GENERAL DESCRIPTION: Middle-aged male lying in bed, no distress. No tachypnea or accessory muscle of respiration use. HEENT: Shows Pallor , no scleral icterus. Oral mucous membrane is dry. No pharyngeal erythema or thrush NECK: Trachea central, no thyromegaly. LUNGS: Unlabored breathing. Decreased breath sound the base HEART: S1, S2, regular rate and rhythm. ABDOMEN: Soft, no tenderness , guarding or rigidity, no organomegaly EXTREMITIES: No edema of feet. SKIN: No rash, no masses palpable. NEUROLOGICAL: The patient is awake, alert, oriented x3, mood and affect normal. Results CBC & Chem 7: 04/28/24 08:39 04/28/24 08:39 Labs: Abnormal Lab Results - Last 24 Hours (Table) 04/26/24 04/26/24 04/27/24 Range/Units 11:47 17:45 00:23 PT 15.8 H (10.0-12.5) sec INR 1.5 H (<1.2) APTT 143.8 H* 42.4 H (22.0-30.0) sec Sodium 136 L (137-145) mmol/L Chloride 94 L (98-107) mmol/L BUN 19 H (7-17) mg/dL Glucose 100 H (74-99) mg/dL 04/27/24 04/27/24 Range/Units 10:40 10:40 PT 14.2 H (10.0-12.5) sec INR 1.4 H (<1.2) APTT (22.0-30.0) sec Sodium 136 L (137-145) mmol/L Chloride (98-107) mmol/L BUN (7-17) mg/dL Glucose 134 H (74-99) mg/dL Microbiology - Last 24 Hours (Table) 04/23/24 17:59 Blood Culture - Preliminary Blood 04/23/24 17:53 Blood Culture - Preliminary Blood Assessment and Plan (1) Abnormal echocardiogram Current Visit: Yes Status: Acute Code(s): R93.1 - ABNORMAL FINDINGS ON DX IMAGING OF HEART AND COR CIRC SNOMED Code(s): 328386667 (2) Mitral valve vegetation Current Visit: Yes Status: Acute Code(s): I33.0 - ACUTE AND SUBACUTE INFECTIVE ENDOCARDITIS SNOMED Code(s): 124736831 Plan: 1patient presented to hospital with shortness of breath and chest pain in this patient who did have a history of mechanical mitral valve replacement a few years ago and apparently the patient has not been compliant with anticoagulation in the outpatient setting and did have a subtherapeutic INR on admission now with evidence of abnormal SHELBY concerning for possible thrombus versus vegetation on the mitral valve patient did not have any fever or elevated white count does not look toxic and did have a negative blood culture on this admission will make vegetation/endocarditis less likely 2-blood culture has been repeated and we will also check inflammatory markers CRP and sed rate 3-agree with the CT surgery opinion with the history and lab findings more point it was a thrombus then infection will hold on adding any systemic antibiotic therapy at this point this has been explained to the patient and her mother in layman terms We will follow on clinical condition and cultures to further adjust medication if needed Thank you for this consultation we will follow the patient along with you Dictation was produced using [employer] dictation software. please excuse any grammatical, word or spelling errors. Time with Patient: Greater than 30
[2024-04-28 09:18] LABS: Basophils % (A) 1 %; Eosinophils # (A) 0.2 k/uL (0-0.7); Eosinophils % (A) 4 %; HCT 39.8 % (34.0-46.0); HGB 12.4 gm/dL (11.4-16.0); Hypochromasia Slight; Lymphocytes # (A) 1.4 k/uL (1.0-4.8); Lymphocytes % (A) 34 %; MCH 27.3 pg (25.0-35.0); MCHC 31.2 g/dL (31.0-37.0); MCV 87.6 fL (80.0-100.0); Mean Platelet Volume 7.7; Monocytes # (A) 0.4 k/uL (0-1.0); Monocytes % (A) 9 %; Neutrophils % (A) 49 %; Platelet Count 353 k/uL (150-450); RBC 4.54 m/uL (3.80-5.40); RDW 15.5 % (11.5-15.5); WBC 4.1 k/uL (3.8-10.6)
[2024-04-28 09:28] LABS: INR 1.4 (<1.2); Partial Thromboplastin Time 34.6 sec (22.0-30.0); Prothrombin Time 14.6 sec (10.0-12.5)
[2024-04-28 09:32] LABS: ALT 19 U/L (4-34); AST 25 U/L (14-36); African American GFR (CKD) >90 (>60 ml/min/1.73 sqM); Albumin 3.4 g/dL (3.5-5.0); Alkaline Phosphatase 79 U/L (38-126); Anion Gap 4 mmol/L; Blood Urea Nitrogen 13 mg/dL (7-17); Calcium 8.6 mg/dL (8.4-10.2); Carbon Dioxide 29 mmol/L (22-30); Chloride 105 mmol/L (98-107); Glucose 105 mg/dL (74-99); Non-African American GFR(CKD) 85 (>60 ml/min/1.73 sqM); Potassium 3.7 mmol/L (3.5-5.1); Sodium 138 mmol/L (137-145); Total Bilirubin 0.4 mg/dL (0.2-1.3); Total Protein 6.7 g/dL (6.3-8.2)
[2024-04-28] MEDS: HEPARIN SODIUM 1,000 UN/ML (10ML VL) IV PRN (09:53)
--- NOTE | 2024-04-28 11:19 | P.PN ---
Subjective Progress Note Date: 04/28/24 History of present illness: Patient is a pleasant 49-year-old significant past medical history of mitral v alve replacement in 2019, rheumatoid arthritis seizure disorder, Crohn's disease, presented to the emergency department with complaints of shortness of breath and chest pain. She does not smoke, no alcohol. She reports over the past 3 days her shortness of breath has been getting worse to the point where she was unable to lay flat and unable to walk short distances. She did have episode of chest pain yesterday, describes it as a pain of pain on her left chest. She also has been breaking out in sweats for the past 1 week and has been significantly worse over the past 2 days. He had followed with Dr. Winters previously but has had insurance issues and has not seen a feather sawyer recently. She reports she is having difficulty controlling her INR levels. She was last seen in the hospital 09/2023 and echocardiogram at that time with EF 55-60%, mild LVH, mitral valve prosthesis with normal function. Labs reviewed troponin abnormal 0.082, 0.682, 0.796. BNP 2530, INR on arrival was 5.2, 4.6 this morning. WBC 15.3. She denies any recent illness, fevers or chills. She was started on Lasix 40 mg IV every 8 hours. Chest x-ray shows mildmoderate central vascular congestion. She does not have any chest pain today. She still has shortness of breath but is able to walk to the bathroom easier. She denies any swelling in her legs but feels like her abdomen is more distended swollen. She has been more fatigued. Blood pressures have been higher recently at other appointmens. ECHO 04/23/24 with EF 30-35%, normal mitral valve prosthesis, moderate to severe aortic regurgitation. She does see a psychiatrist for her depression, no recent increase in stressors. 04/24 She reports that her breathing is significantly better. Denies any chest pain or pressure. She is still having occasional sweats. Was reviewed this morning: INR 3.1, potassium 3.9, creatinine 0.88. INR 1.9 chest x-ray is showing some improvement. Blood pressure is better controlled with systolic BP 110s, she did have 1 episode in the 90s overnight but was asymptomatic. 04/25 Patient is scheduled for cardiac catheterization today with Dr. Mittal. She denies having any chest pain or shortness of breath at this time. Blood pressure 134/86, heart rate 85, pulse ox 97% on room air. Repeat blood work rev eals hemoglobin 13.9. Creatinine 0.89 and BUN 26, potassium 3.5. Patient has been maintained on heparin drip. Echocardiogram reveals EF of 30 to 35%. RVSP 48. Normally functioning mitral mechanical valve. Moderate to severe aortic regurgitation. 04/26 Yesterday, patient underwent cardiac catheterization which revealed no significant coronary artery disease. Approach was from the groin with no signs of hematoma. Patient is complaining of back pain and leg pain. She has been on IV Lasix 40 mg every 8 hours. She has been on a heparin drip and she will be resumed back on Coumadin. Pharmacy is dosing. Blood pressure 92/63, heart rate 71, pulse ox 97% on room air. 04/27 Patient underwent SHELYB today which revealed aortic valve tricuspid and functioning normally with moderate central aortic insufficiency. Mechanical mitral valve with normal functioning mechanical leaflets. Mild paravalvular leak. Mobile echodensity which appears more consistent with vegetation then with a thrombus attached to the mitral ring leaflet. No evidence of PFO. Left atrial appendage is free of clot. EF 55%. Patient returned to her room and consults were placed with neurology, cardiothoracic surgery and infectious disease. Patient apparently has been having transient vision loss. Blood pressure 111/69, heart rate 87. Pulse ox 98% on room air. Repeat blood work reveals INR 1.4. Patient has been resumed on Coumadin pharmacy dosing. Hemoglobin 12.7. Creatinine 0.8. Blood cultures are showing no growth 04/28 Yesterday, we started patient on Farxiga. She has been maintained on IV heparin and pharmacy is dosing Coumadin. Blood pressure 112/78, heart rate 65, pulse ox 97% on room air. Patient has been seen by neurology for transient vision loss which has been occurring for her over the past year lasting very briefly along with headaches. Patient has been evaluated by cardiothoracic surgery as well as infectious disease with consensus that due to lack of fever, leukocytosis and negative blood cultures, most likely thrombus versus vegetation on the mitral valve. No antibiotics started. Patient states that she is feeling better today. She denies any vison loss episodes. All questions and concerns from patient have been discussed in detail. All questions answered. INR is 1.4 again. We will order 7.5 mg tonight. Plan for possible discharge home tomorrow. CAT scan of the brain reveals a new hypodense area in the right basal ganglia consider MRI to rule out stroke. CT angio head and neck revealed no evidence of dissection of the cervical internal carotid arteries or vertebral arteries or any evidence of significant stenosis at the carotid bifurcations. No evidence of intracranial high-grade stenosis or intracranial aneurysm. PHYSICAL EXAMINATION: This is a 49-year-old female in no apparent distress at the time of my examination. HEENT: Head is atraumatic, normocephalic. Pupils are equal, round. Sclerae anicteric. Conjunctivae are clear. Mucous membranes of the mouth are moist. Neck is supple. There is no jugular venous distention. No carotid bruit is heard. CHEST EXAMINATION: Lungs are clear to auscultation. No chest wall tenderness is noted on palpation or with deep breathing. HEART EXAMINATION: Heart regular rate and rhythm. S1, S2 heard. No murmurs, gallops or rub. ABDOMEN: Soft, nontender. Bowel sounds are heard. obese. EXTREMITIES: 2+ peripheral pulses with no evidence of peripheral edema and no calf tenderness noted. NEUROLOGIC EXAMINATION: Patient is awake, alert and oriented x3. IMPRESSION AND PLAN: History of mitral valve replacement 2020 Supratherapeutic INR on Coumadin NSTEMI, normal coronary arteries on cardiac catheterization Dyspnea Chest pain Nonischemic cardiomyopathy, EF 30-35% Mechanical valve with thrombus versus vegetation on SHELBY Hypodensity found on CT scan of the brain in the right basal ganglia PLAN: Continue patient on aspirin 81 mg daily, Lopressor 25 mg twice daily, Aldactone 25 mg daily Continue patient on Farxiga 10 mg daily Continue heparin and warfarin, pharmacy dosing, INR goal 2.5+ We will order Coumadin 7.5 mg tonight Plan for possible discharge home tomorrow Consults appreciated with infectious disease, cardiothoracic surgery, and neurology Nurse practitioner note has been reviewed, I agree with documented findings and plan of care. Patient was seen and examined. Objective - Vital Signs Vital signs: Vital Signs Temp 98.2 F 04/28/24 07:48 Pulse 65 04/28/24 07:48 Resp 16 04/28/24 07:48 BP 112/78 04/28/24 07:48 Pulse Ox 97 04/28/24 07:48 FiO2 Intake & Output 04/27/24 04/28/24 04/28/24 18:59 06:59 18:59 Intake Total 1209.11 197.222 Output Total 400 Balance 1209.11 -202.778 Weight 103.7 kg Intake: IV 129.11 Heparin Sod,Pork in 0.45% 79.11 NaCl 25,000 unit In 0.45 % NaCl 1 250ml.bag @ 9.76 UNITS/KG/HR 10.004 mls/ hr IV .Q24H [facility] Rx#: [id number] Intake, IV Titration 197.222 Amount Heparin Sod,Pork in 0.45% 197.222 NaCl 25,000 unit In 0.45 % NaCl 1 250ml.bag @ 9.76 UNITS/KG/HR 10.004 mls/ hr IV .Q24H [facility] Rx#: [id number] Oral 1080 Output: Urine 400 Other: # Voids 2 - Labs CBC & Chem 7: 04/28/24 08:39 04/28/24 08:39 Labs: Abnormal Lab Results - Last 24 Hours (Table) 04/27/24 04/27/24 04/27/24 Range/Units 10:40 10:40 15:58 PT 14.2 H (10.0-12.5) sec INR 1.4 H (<1.2) APTT 45.9 H (22.0-30.0) sec Sodium 136 L (137-145) mmol/L Glucose 134 H (74-99) mg/dL
--- NOTE | 2024-04-28 16:01 | P.PN ---
Subjective Progress Note Date: 04/28/24 Principal diagnosis: Reason for follow-up is abnormal echo concerning for mitral valve Patient is a 49-year-old female with a past medical history significant for fibromyalgia hypertension rheumatoid arthritis seizure disorder in this patient who is s/p mechanical aortic valve replacement few years ago presenting to the hospital with chest pain and shortness of breath he did have workup with concern for possible vegetation on the mitral valve prompting this consultation. On today's evaluation that is 04/28/2024,the patient remains to be afebrile, patient is on room air not requiring supplemental oxygen and denies any shortness of breath no chest pain or cough.Patient denies having any nausea or vomiting, no abdominal pain and no diarrhea. Patient white count is 4.1 creatinine is 0.81 procalcitonin 0.06 CRP 0.9 sed rate is 23 Objective - Vital Signs Vital signs: Vital Signs Temp 98.3 F 04/28/24 15:40 Pulse 67 04/28/24 15:40 Resp 20 04/28/24 15:40 BP 109/72 04/28/24 15:40 Pulse Ox 95 04/28/24 15:40 FiO2 Intake & Output 04/27/24 04/28/24 04/28/24 18:59 06:59 18:59 Intake Total 1209.11 197.222 388.978 Output Total 400 800 Balance 1209.11 -202.778 -411.022 Weight 103.7 kg Intake: IV 129.11 Heparin Sod,Pork in 0.45% 79.11 NaCl 25,000 unit In 0.45 % NaCl 1 250ml.bag @ 9.76 UNITS/KG/HR 10.004 mls/ hr IV .Q24H [facility] Rx#: [id number] Intake, IV Titration 197.222 30.978 Amount Heparin Sod,Pork in 0.45% 197.222 30.978 NaCl 25,000 unit In 0.45 % NaCl 1 250ml.bag @ 9.76 UNITS/KG/HR 10.004 mls/ hr IV .Q24H [facility] Rx#: [id number] Oral 1080 358 Output: Urine 400 800 Other: Voiding Method Toilet # Voids 2 2 # Bowel Movements 1 - Exam GENERAL DESCRIPTION: Middle-aged female lying in bed in no distress RESPIRATORY SYSTEM: Unlabored breathing , decreased breath sounds at bases HEART: S1 S2 regular rate and rhythm , ABDOMEN: Soft , no tenderness EXTREMITIES: No edema feet - Labs CBC & Chem 7: 04/28/24 08:39 04/28/24 08:39 Labs: Abnormal Lab Results - Last 24 Hours (Table) 04/27/24 04/28/24 04/28/24 Range/Units 15:58 08:39 08:39 PT 14.6 H (10.0-12.5) sec INR 1.4 H (<1.2) APTT 45.9 H 34.6 H (22.0-30.0) sec Glucose 105 H (74-99) mg/dL Albumin 3.4 L (3.5-5.0) g/dL Assessment and Plan (1) Abnormal echocardiogram Current Visit: Yes Status: Acute Code(s): R93.1 - ABNORMAL FINDINGS ON DX IMAGING OF HEART AND COR CIRC SNOMED Code(s): 599920967 (2) Mitral valve vegetation Current Visit: Yes Status: Acute Code(s): I33.0 - ACUTE AND SUBACUTE INFECTIVE ENDOCARDITIS SNOMED Code(s): 999267009 Plan: 1patient presented to hospital with shortness of breath and chest pain in this patient who did have a history of mechanical mitral valve replacement a few years ago and apparently the patient has not been compliant with anticoagulation in the outpatient setting and did have a subtherapeutic INR on admission now with evidence of abnormal SHELBY concerning for possible thrombus versus vegetation on the mitral valve patient did not have any fever or elevated white count does not look toxic and did have a negative blood culture on this admission will make vegetation/endocarditis less likely 2-blood culture has been repeated, patient did have a normal CRP procalcitonin and ESR there will go against possible endocarditis hence we will hold on adding any empiric and by therapy at this point Multiple question concern answered Dictation was produced using [employer] software. please excuse any grammatical, word or spelling errors.
--- NOTE | 2024-04-28 16:08 | P.PN ---
Subjective Progress Note Date: 04/28/24 I am following-up with patient and she states she is doing better and no further headache or visual disturbance. No new neurological issues. Objective - Vital Signs Vital signs: Vital Signs Temp 98.3 F 04/28/24 15:40 Pulse 67 04/28/24 15:40 Resp 20 04/28/24 15:40 BP 109/72 04/28/24 15:40 Pulse Ox 95 04/28/24 15:40 FiO2 Intake & Output 04/27/24 04/28/24 04/28/24 18:59 06:59 18:59 Intake Total 1209.11 197.222 388.978 Output Total 400 800 Balance 1209.11 -202.778 -411.022 Weight 103.7 kg Intake: IV 129.11 Heparin Sod,Pork in 0.45% 79.11 NaCl 25,000 unit In 0.45 % NaCl 1 250ml.bag @ 9.76 UNITS/KG/HR 10.004 mls/ hr IV .Q24H [facility] Rx#: [id number] Intake, IV Titration 197.222 30.978 Amount Heparin Sod,Pork in 0.45% 197.222 30.978 NaCl 25,000 unit In 0.45 % NaCl 1 250ml.bag @ 9.76 UNITS/KG/HR 10.004 mls/ hr IV .Q24H [facility] Rx#: [id number] Oral 1080 358 Output: Urine 400 800 Other: Voiding Method Toilet # Voids 2 2 # Bowel Movements 1 - Exam GENERAL: The patient is sitting in a recliner chair and is not in acute distress. NEUROLOGICAL: Higher mental function: The patient is awake, alert, oriented to self, place and time. Patient is following commands. No aphasia and no neglect. Cranial nerves: The pupils are round, equal and reactive to light and accommodation. Visual correa are full to confrontation throughout. Extraocular movement is intact no nystagmus is noted. Facial sensation is normal to touch throughout. The facial strength is normal throughout. Hearing is normal bilaterally to hand rub. Tongue is midline and moved [id number] without any difficulty. No dysarthria is noted. Shoulder shrug is normal bilaterally. Motor: The strength is 5 over 5 throughout. Normal tone and bulk. Cerebellum: Normal finger to nose heel to bethea bilaterally. Sensation: Sensation is normal to touch throughout. Reflexes (right/left): 2+ throughout. Plantars are downgoing bilaterally. During this hospital visit: TSH is 0.93 Vitamin B12 is 282 Transesophageal echocardiogram today which showed mobile echodensity which appears more consistent with vegetations than thrombus attached to the mitral ring leaflet per the cardiology team. CT head is reported as improved from 2018 hypodense area in the right basal ganglia. Consider evaluation with MRI to rule out stroke. I personally r eviewed her prior image and had MRI in that same territory so therefore where the radiologist was pointing out is old. CTA head ane neck: Evidence of dissection of cervical internal carotid artery or vertebral artery or any evidence of significant stenosis at the carotid bifurcation. No evidence of intracranial high-grade stenosis or intracranial aneurysm. - Labs CBC & Chem 7: 04/28/24 08:39 04/28/24 08:39 Labs: Abnormal Lab Results - Last 24 Hours (Table) 04/27/24 04/28/24 04/28/24 Range/Units 15:58 08:39 08:39 PT 14.6 H (10.0-12.5) sec INR 1.4 H (<1.2) APTT 45.9 H 34.6 H (22.0-30.0) sec Glucose 105 H (74-99) mg/dL Albumin 3.4 L (3.5-5.0) g/dL Assessment and Plan Assessment: This is a 49-year-old woman with history of mitral valve replacement in 2019 and is on Coumadin, rheumatoid arthritis, Crohn's disease who presented emergency department because of shortness of breath and chest pain. She underwent transesophageal echocardiogram and was felt to have mobile echodensity which appears more consistent with vegetation than a thrombus attached to the mitral ring leaflet per cardiology. She had an episode yesterday therefore neurology was consulted for concern for stroke. Patient states that she has been having these episodes for the past 1 year and she has headaches usually with them and sometimes she does not lasting for few seconds. She feels that episodes are and the headache resolved with Topamax and she follows up with a neurologist as outpatient. Recurrent Transient blurry vision for past one year and had one episode yesterday: Seems more ocular migraine. She feels her symptoms resolve with Topmax but is on PRN and was told by her neurologist (Dr. Ty she has multiple white matter changes and there is concern for demylinating disease and is in process of seeing [facility] as outpatient referred by her Neurologist). CT head reported as small hypodensity on right basal ganglia s evette [address] I personally reviewed her prior image and had MRI in that same territory so therefore where the radiologist was pointing out is old. Mobile echodensity attached to the mitral ring leaflet and cardiology felt appeared more consistent with vegetation and thrombus Low normal vitamin B12 (282) History of mitral valve replacement 2019 and is on Coumadin Underlying history of rheumatoid arthritis Underlying history of Crohn's disease Plan: I ordered MRI Brain and lipid panel. Patient states she has improvement with a headache as well as visual disturbance with Topamax 50 mg as needed that was prescribed by her neurologist as an outpatient. Therefore I will change it to Topamax 50 mg 1 tablet twice daily scheduled (started on 04/27/24). For low normal vitamin B12, I started patient on Vitamin B12 1000mcg daily starting tomorrow with one time IM today. Cardiothoracic surgery team is consulted Infection disease team is consulted Patient is on heparin drip in addition the patient is on aspirin 81 mg daily. Will defer the rest of the medical management to the primary and other specialist The plan is discussed with patient and cardiology team. Time with Patient: Less than 30
[2024-04-28] MEDS: CYANOCOBALAMIN 1,000 MCG/ML 1 ML VIAL IM ONE (16:57)
[2024-04-28] MEDS: WARFARIN 7.5 MG TAB PO ONE (17:52)
--- NOTE | 2024-04-29 00:04 | PN ---
PROGRESS NOTE DATE OF SERVICE: 04/28/2024 SUBJECTIVE: This is a 49-year-old woman, who was admitted with CHF acute exacerbation, also had chest pain. Cardiac catheterization was found to be normal. The patient was also evaluated for possible vegetation/thrombus on the mitral valve. The patient also had moderate aortic regurgitation as well. The patient is closely followed by multiple consultants including Infectious Disease as well as Cardiology. The cultures are negative so far. The patient is started on Farxiga. Coumadin dosing is being carried out. PAST MEDICAL HISTORY: Reviewed. Cardiology planning possible discharge tomorrow. REVIEW OF SYSTEMS: Fourteen-point review is negative, except as mentioned earlier. CURRENT MEDICATIONS: Reviewed. IV heparin. Rest of medications noted. PHYSICAL EXAMINATION: VITAL SIGNS: Pulse is 67, blood pressure , respirations 16. CHEST: Clear to auscultation. CARDIOVASCULAR: S1 and S2. RESPIRATIONS: Breath sounds diminished. ABDOMEN: Soft, nontender. LABORATORY DATA: INR is 1.4. ASSESSMENT: 1. Chest pain, possible acute [id number] elevation myocardial infarction. Troponin 0.68. Status post cardiac catheterization, normal coronary arteries, on medical treatment. 2. Congestive heart failure exacerbation with acute on chronic systolic dysfunction, ejection fraction 30% to 35%. 3. Possible thrombus on the mitral valve, status post transesophageal echocardiogram. 4. Rule out vegetation. 5. Moderate aortic regurgitation, transesophageal echocardiogram. 6. Supratherapeutic INR on Coumadin present on admission, but on IV heparin at this time. 7. History of noncompliance, not taking Coumadin for some time. 8. Fibromyalgia. 9. Hypertension. 10.Multiple complex medical issues. RECOMMENDATIONS: Recommend to continue current management and continue symptomatic treatment. Otherwise, at this time, I will follow closely with Cardiology. Continue with heparin, Coumadin dosing. Repeat labs tomorrow. Once INR therapeutic and okay with Cardiology, the patient will be able to go home with further plans to follow up with the primary physician, Dr. Mercado, and also [employer] and Infectious Disease input appreciated. Cultures are negative so far. MMODL / IJN: [id number] /
[2024-04-29] MEDS: CYANOCOBALAMIN 500 MCG TAB PO SCH (08:03)
[2024-04-29 08:05] VITALS: BMI 33.9
[2024-04-29 08:59] LABS: Basophils % (A) 1 %; Eosinophils # (A) 0.2 k/uL (0-0.7); Eosinophils % (A) 4 %; HCT 40.1 % (34.0-46.0); HGB 12.7 gm/dL (11.4-16.0); Lymphocytes # (A) 1.4 k/uL (1.0-4.8); Lymphocytes % (A) 30 %; MCH 28.1 pg (25.0-35.0); MCHC 31.7 g/dL (31.0-37.0); MCV 88.6 fL (80.0-100.0); Mean Platelet Volume 8.2; Monocytes # (A) 0.5 k/uL (0-1.0); Monocytes % (A) 11 %; Neutrophils # (A) 2.4 k/uL (1.3-7.7); Neutrophils % (A) 52 %; Platelet Count 316 k/uL (150-450); RBC 4.53 m/uL (3.80-5.40); RDW 15.4 % (11.5-15.5); WBC 4.7 k/uL (3.8-10.6)
[2024-04-29 09:06] LABS: INR 1.5 (<1.2); Prothrombin Time 15.3 sec (10.0-12.5)
[2024-04-29 09:32] LABS: African American GFR (CKD) 84 (>60 ml/min/1.73 sqM); Anion Gap 3 mmol/L; Blood Urea Nitrogen 13 mg/dL (7-17); Calcium 8.8 mg/dL (8.4-10.2); Carbon Dioxide 29 mmol/L (22-30); Chloride 105 mmol/L (98-107); Glucose 84 mg/dL (74-99); Non-African American GFR(CKD) 73 (>60 ml/min/1.73 sqM); Potassium 4.1 mmol/L (3.5-5.1); Sodium 137 mmol/L (137-145)
--- NOTE | 2024-04-29 12:36 | P.PN ---
Subjective Progress Note Date: 04/29/24 Principal diagnosis: Reason for follow-up is abnormal echo concerning for mitral valve Patient is a 49-year-old female with a past medical history significant for fibromyalgia hypertension rheumatoid arthritis seizure disorder in this patient who is s/p mechanical aortic valve replacement few years ago presenting to the hospital with chest pain and shortness of breath he did have workup with concern for possible vegetation on the mitral valve prompting this consultation. On today's evaluation that is 04/29/2024, the patient continues to be afebrile, the patient is on room air and breathing comfortably, the Pt denies having any chest pain or cough, the patient denies having any abdominal pain no vomiting or any diarrhea, no new symptoms. Patient white count is 4.7 INR is 1.5 creatinine 0.92 blood cultures so far negative Objective - Vital Signs Vital signs: Vital Signs Temp 98.0 F 04/29/24 12:00 Pulse 70 04/29/24 12:00 Resp 14 04/29/24 12:00 BP 131/80 04/29/24 12:00 Pulse Ox 98 04/29/24 12:00 FiO2 Intake & Output 04/28/24 04/29/24 04/29/24 18:59 06:59 18:59 Intake Total 971.146 136.854 Output Total 800 1200 Balance 171.146 -1200 136.854 Weight 104.3 kg 104.3 kg Intake: Intake, IV Titration 113.146 136.854 Amount Heparin Sod,Pork in 0.45% 113.146 136.854 NaCl 25,000 unit In 0.45 % NaCl 1 250ml.bag @ 9.76 UNITS/KG/HR 10.004 mls/ hr IV .Q24H [facility] Rx#: [id number] Oral 858 Output: Urine 800 1200 Other: Voiding Method Toilet Toilet Toilet # Voids 2 # Bowel Movements 1 - Exam GENERAL DESCRIPTION: Middle-aged female lying in bed in no distress RESPIRATORY SYSTEM: Unlabored breathing , decreased breath sounds at bases HEART: S1 S2 regular rate and rhythm , ABDOMEN: Soft , no tenderness EXTREMITIES: No edema feet - Labs CBC & Chem 7: 04/29/24 07:17 04/29/24 07:17 Labs: Abnormal Lab Results - Last 24 Hours (Table) 04/28/24 04/28/24 04/29/24 Range/Units 15:21 22:22 07:17 PT 15.3 H (10.0-12.5) sec INR 1.5 H (<1.2) APTT 115.0 H* 58.5 H (22.0-30.0) sec Microbiology - Last 24 Hours (Table) 04/27/24 16:06 Blood Culture - Preliminary Blood 04/23/24 17:59 Blood Culture - Final Blood 04/23/24 17:53 Blood Culture - Final Blood Assessment and Plan (1) Abnormal echocardiogram Current Visit: Yes Status: Acute Code(s): R93.1 - ABNORMAL FINDINGS ON DX IMAGING OF HEART AND COR CIRC SNOMED Code(s): 119575924 (2) Mitral valve vegetation Current Visit: Yes Status: Acute Code(s): I33.0 - ACUTE AND SUBACUTE INFECTIVE ENDOCARDITIS SNOMED Code(s): 087741929 Plan: 1patient presented to hospital with shortness of breath and chest pain in this patient who did have a history of mechanical mitral valve replacement a few years ago and apparently the patient has not been compliant with anticoagulation in the outpatient setting and did have a subtherapeutic INR on admission now with evidence of abnormal SHELBY concerning for possible thrombus versus vegetation on the mitral valve patient did not have any fever or elevated white count does not look toxic and did have a negative blood culture on this admission will make vegetation/endocarditis less likely 2-blood culture has been repeated, patient did have a normal CRP procalcitonin and ESR there will go against possible endocarditis Patient did have multiple question concern those has been answered will monitor closely off antibiotic Dictation was produced using [employer] dictation software. please excuse any grammatical, word or spelling errors. Time with Patient: Less than 30
--- NOTE | 2024-04-29 12:41 | P.PN ---
Subjective Progress Note Date: 04/29/24 I am following-up with patient and no further visual disturbance or headache. Pending MRI Brain. Objective - Vital Signs Vital signs: Vital Signs Temp 98.0 F 04/29/24 12:00 Pulse 70 04/29/24 12:00 Resp 14 04/29/24 12:00 BP 131/80 04/29/24 12:00 Pulse Ox 98 04/29/24 12:00 FiO2 Intake & Output 04/28/24 04/29/24 04/29/24 18:59 06:59 18:59 Intake Total 971.146 136.854 Output Total 800 1200 Balance 171.146 -1200 136.854 Weight 104.3 kg 104.3 kg Intake: Intake, IV Titration 113.146 136.854 Amount Heparin Sod,Pork in 0.45% 113.146 136.854 NaCl 25,000 unit In 0.45 % NaCl 1 250ml.bag @ 9.76 UNITS/KG/HR 10.004 mls/ hr IV .Q24H [facility] Rx#: [id number] Oral 858 Output: Urine 800 1200 Other: Voiding Method Toilet Toilet Toilet # Voids 2 # Bowel Movements 1 - Exam GENERAL: The patient is sitting in a recliner chair and is not in acute distress. NEUROLOGICAL: Higher mental function: The patient is awake, alert, oriented to self, place and time. Patient is following commands. No aphasia and no neglect. Cranial nerves: The pupils are round, equal and reactive to light and accommodation. Visual correa are full to confrontation throughout. Extraocular movement is intact no nystagmus is noted. Facial sensation is normal to touch throughout. The facial strength is normal throughout. Hearing is normal bilaterally to hand rub. Tongue is midline and moved [id number] without any difficulty. No dysarthria is noted. Shoulder shrug is normal bilaterally. Motor: The strength is 5 over 5 throughout. Normal tone and bulk. Cerebellum: Normal finger to nose heel to bethea bilaterally. Sensation: Sensation is normal to touch throughout. Reflexes (right/left): 2+ throughout. Plantars are downgoing bilaterally. Some of the work-up during this hospital visit: TSH is 0.93 Vitamin B12 is 282 Transesophageal echocardiogram today which showed mobile echodensity which appears more consistent with vegetations than thrombus attached to the mitral ring leaflet per the cardiology team. CT head is reported as improved from 2018 hypodense area in the right basal ganglia. Consider evaluation with MRI to rule out stroke. I personally reviewed her prior image and had MRI in that same territory so therefore where the radiologist was pointing out is old. CTA head ane neck: Evidence of dissection of cervical internal carotid artery or vertebral artery or any evidence of significant stenosis at the carotid bifurcation. No evidence of intracranial high-grade stenosis or intracranial aneurysm. - Labs CBC & Chem 7: 04/29/24 07:17 04/29/24 07:17 Labs: Abnormal Lab Results - Last 24 Hours (Table) 04/28/24 04/28/24 04/29/24 Range/Units 15:21 22:22 07:17 PT 15.3 H (10.0-12.5) sec INR 1.5 H (<1.2) APTT 115.0 H* 58.5 H (22.0-30.0) sec Microbiology - Last 24 Hours (Table) 04/27/24 16:06 Blood Culture - Preliminary Blood 04/23/24 17:59 Blood Culture - Final Blood 04/23/24 17:53 Blood Culture - Final Blood Assessment and Plan Assessment: This is a 49-year-old woman with history of mitral valve replacement in 2020 and is on Coumadin, rheumatoid arthritis, Crohn's disease who presented emergency department because of shortness of breath and chest pain. She underwent transesophageal echocardiogram and was felt to have mobile echodensity which appears more consistent with vegetation than a thrombus attached to the mitral ring leaflet per cardiology. She had an episode yesterday therefore neurology was consulted for concern for stroke. Patient states that she has been having these episodes for the past 1 year and she has headaches usually with them and sometimes she does not lasting for few seconds. She feels that episodes are and the headache resolved with Topamax and she follows up with a neurologist as outpatient. Recurrent Transient blurry vision for past one year and had one episode yesterday: Seems more ocular migraine. She feels her symptoms resolve with Topmax but is on PRN and was told by her neurologist (Dr. Ty she has multiple white matter changes and there is concern for demylinating disease and is in process of seeing [facility] team as outpatient referred by her Neurologist). CT head reported as small hypodensity on right basal ganglia since [address] I personally reviewed her prior image and had MRI in that same territory so therefore where the radiologist was pointing out is old. Mobile echodensity attached to the mitral ring leaflet and cardiology felt appeared more consistent with vegetation and thrombus Low normal vitamin B12 (282) History of mitral valve replacement 2019 and is on Coumadin Underlying history of rheumatoid arthritis Underlying history of Crohn's disease Plan: MRI Brain is pending. Lipid panel is pending. Patient states she has improvement with a headache as well as visual disturbance with Topamax 50 mg as needed that was prescribed by her neurologist as an outpatient. Therefore I will change it to Topamax 50 mg 1 tablet twice daily scheduled (started on 04/27/24) and since has no further visual disturbance or headache. For low normal vitamin B12, I started patient on Vitamin B12 1000mcg daily. Cardiothoracic surgery team is consulted Infection disease team is consulted Patient is on heparin drip in addition the patient is on aspirin 81 mg daily. Will defer the rest of the medical management to the primary and other spe cialist The plan is discussed with patient, primary team and cardiology team. If MRI Brain is negative for acute or subacute intracranial process, then no further neurological work-up. Time with Patient: Less than 30
--- NOTE | 2024-04-29 13:42 | P.PN ---
Subjective Progress Note Date: 04/29/24 This is a 49-year-old woman with history of mitral valve replacement in 2019, rheumatoid arthritis, Crohn disease who present emergency department because of shortness of breath and chest pain. Neurology is consulted for transient vision loss. States that for the past 1 year she has been having transient blurry vision and happens maybe once a month and it lasts a few seconds at a. She states that she has been having headache and happens at different regions in half and over the temporal, occipital, parietal or central region and states the headache is usually 11/10 to a throbbing class IV hours does have nausea but no vomiting does have photophobia and phonophobia. She has to be in a quiet dark place. She states if she would have the headache then visual disturbance and sometimes without the headache. She sees Dr. Timmons for neurological care and had images and was told she has multiple white matter changes and there is a concern for demyelinating disease and [facility]. She states her symptoms resolved with Topamax to 50 mg as needed. It seems that she had episode yesterday. Denies any history of strokes. Patient denies any tobacco use or illicit drug use During this hospital visit she Underwent transesophageal echocardiogram today which showed mobile echodensity which appears more consistent with vegetations than thrombus attached to the mitral ring leaflet per the cardiology team. This hospital visit her initial INR is 5.2 then because of the SHELBY the patient was placed on heparin drip. 04/29. Patient seen and examined. INR is still subtherapeutic. MRI pending REVIEW OF SYSTEMS: CONSTITUTIONAL: No fever, no malaise,. CARDIOVASCULAR: No chest pain, no palpitations, no syncope. PULMONARY: No shortness of breath, no cough, GASTROINTESTINAL: No diarrhea, no nausea, no vomiting, no abdominal pain. NEUROLOGICAL: No headaches, no weakness, PHYSICAL EXAMINATION: GENERAL: The patient is alert and oriented x3, not in any acute distress. Well developed, well nourished. HEENT: Pupils are round and equally reacting to light. EOMI. No scleral icterus. No conjunctival pallor. Normocephalic, atraumatic. No pharyngeal erythema. No thyromegaly. CARDIOVASCULAR: S1 and S2 present. No murmurs, rubs, or gallops. PULMONARY: Chest is clear to auscultation, no wheezing or crackles. ABDOMEN: Soft, nontender, nondistended, normoactive bowel sounds. No palpable organomegaly. MUSCULOSKELETAL: No joint swelling or deformity. EXTREMITIES: No cyanosis, clubbing, or pedal edema. NEUROLOGICAL: Gross neurological examination did not reveal any focal deficits. SKIN: No rashes. Assessment and plan History of mitral valve replacement 2020 Supratherapeutic INR on Coumadin NSTEMI, normal coronary arteries on cardiac catheterization Dyspnea Chest pain Nonischemic cardiomyopathy, EF 30-35% Mechanical valve with thrombus versus vegetation on SHELBY Hypodensity found on CT scan of the brain in the right basal ganglia Monitor vital signs Monitor CBC Monitor CMP Continue telemetry monitoring Continue pharmacy to dose heparin Continue Coumadin pharmacy to dose Continue Farxiga Continue aspirin, Lopressor, Aldactone MRI brain ordered Neurology following ID following CT surgery following Labs and medication were reviewed.. Continue same treatment. Continue with symptomatic treatment. Resume home medication. Monitor labs and vitals. DVT and GI prophylaxis. Further recommendations as per clinical course of the patient Dictation was produced using [employer] dictation software. please excuse any grammatical, word or spelling errors. Objective - Vital Signs Vital signs: Vital Signs Temp 98.0 F 04/29/24 08:00 Pulse 68 04/29/24 08:00 Resp 14 04/29/24 08:00 BP 117/79 04/29/24 08:00 Pulse Ox 100 04/29/24 08:00 FiO2 Intake & Output 04/28/24 04/29/24 04/29/24 18:59 06:59 18:59 Intake Total 971.146 Output Total 800 1200 Balance 171.146 -1200 Weight 104.3 kg 104.3 kg Intake: Intake, IV Titration 113.146 Amount Heparin Sod,Pork in 0.45% 113.146 NaCl 25,000 unit In 0.45 % NaCl 1 250ml.bag @ 9.76 UNITS/KG/HR 10.004 mls/ hr IV .Q24H [facility] Rx#: [id number] Oral 858 Output: Urine 800 1200 Other: Voiding Method Toilet Toilet # Voids 2 # Bowel Movements 1 - Labs CBC & Chem 7: 04/29/24 07:17 04/29/24 07:17 Labs: Abnormal Lab Results - Last 24 Hours (Table) 04/28/24 04/28/24 04/29/24 Range/Units 15:21 22:22 07:17 PT 15.3 H (10.0-12.5) sec INR 1.5 H (<1.2) APTT 115.0 H* 58.5 H (22.0-30.0) sec Microbiology - Last 24 Hours (Table) 04/27/24 16:06 Blood Culture - Preliminary Blood 04/23/24 17:59 Blood Culture - Final Blood 04/23/24 17:53 Blood Culture - Final Blood
--- NOTE | 2024-04-29 14:00 | P.PN ---
Subjective Progress Note Date: 04/29/24 History of present illness: Patient is a pleasant 49-year-old significant past medical history of mitral v alve replacement in 2019, rheumatoid arthritis seizure disorder, Crohn's disease, presented to the emergency department with complaints of shortness of breath and chest pain. She does not smoke, no alcohol. She reports over the past 3 days her shortness of breath has been getting worse to the point where she was unable to lay flat and unable to walk short distances. She did have episode of chest pain yesterday, describes it as a pain of pain on her left chest. She also has been breaking out in sweats for the past 1 week and has been significantly worse over the past 2 days. He had followed with Dr. Winters previously but has had insurance issues and has not seen a sole scraper recently. She reports she is having difficulty controlling her INR levels. She was last seen in the hospital 09/2023 and echocardiogram at that time with EF 55-60%, mild LVH, mitral valve prosthesis with normal function. Labs reviewed troponin abnormal 0.082, 0.682, 0.796. BNP 2530, INR on arrival was 5.2, 4.6 this morning. WBC 15.3. She denies any recent illness, fevers or chills. She was started on Lasix 40 mg IV every 8 hours. Chest x-ray shows mildmoderate central vascular congestion. She does not have any chest pain today. She still has shortness of breath but is able to walk to the bathroom easier. She denies any swelling in her legs but feels like her abdomen is more distended swollen. She has been more fatigued. Blood pressures have been higher recently at other appointmens. ECHO 04/23/24 with EF 30-35%, normal mitral valve prosthesis, moderate to severe aortic regurgitation. She does see a psychiatrist for her depression, no recent increase in stressors. 04/24 She reports that her breathing is significantly better. Denies any chest pain or pressure. She is still having occasional sweats. Was reviewed this morning: INR 3.1, potassium 3.9, creatinine 0.88. INR 1.9 chest x-ray is showing some improvement. Blood pressure is better controlled with systolic BP 110s, she did have 1 episode in the 90s overnight but was asymptomatic. 04/25 Patient is scheduled for cardiac catheterization today with Dr. Mittal. She denies having any chest pain or shortness of breath at this time. Blood pressure 134/86, heart rate 85, pulse ox 97% on room air. Repeat blood work rev eals hemoglobin 13.9. Creatinine 0.89 and BUN 26, potassium 3.5. Patient has been maintained on heparin drip. Echocardiogram reveals EF of 30 to 35%. RVSP 48. Normally functioning mitral mechanical valve. Moderate to severe aortic regurgitation. 04/26 Yesterday, patient underwent cardiac catheterization which revealed no significant coronary artery disease. Approach was from the groin with no signs of hematoma. Patient is complaining of back pain and leg pain. She has been on IV Lasix 40 mg every 8 hours. She has been on a heparin drip and she will be resumed back on Coumadin. Pharmacy is dosing. Blood pressure 92/63, heart rate 71, pulse ox 97% on room air. 04/27 Patient underwent SHELBY today which revealed aortic valve tricuspid and functioning normally with moderate central aortic insufficiency. Mechanical mitral valve with normal functioning mechanical leaflets. Mild paravalvular leak. Mobile echodensity which appears more consistent with vegetation then with a thrombus attached to the mitral ring leaflet. No evidence of PFO. Left atrial appendage is free of clot. EF 55%. Patient returned to her room and consults were placed with neurology, cardiothoracic surgery and infectious disease. Patient apparently has been having transient vision loss. Blood pressure 111/69, heart rate 87. Pulse ox 98% on room air. Repeat blood work reveals INR 1.4. Patient has been resumed on Coumadin pharmacy dosing. Hemoglobin 12.7. Creatinine 0.8. Blood cultures are showing no growth 04/28 Yesterday, we started patient on Farxiga. She has been maintained on IV heparin and pharmacy is dosing Coumadin. Blood pressure 112/78, heart rate 65, pulse ox 97% on room air. Patient has been seen by neurology for transient vision loss which has been occurring for her over the past year lasting very briefly along with headaches. Patient has been evaluated by cardiothoracic surgery as well as infectious disease with consensus that due to lack of fever, leukocytosis and negative blood cultures, most likely thrombus versus vegetation on the mitral valve. No antibiotics started. Patient states that she is feeling better today. She denies any vison loss episodes. All questions and concerns from patient have been discussed in detail. All questions answered. INR is 1.4 again. We will order 7.5 mg tonight. Plan for possible discharge home tomorrow. CAT scan of the brain reveals a new hypodense area in the right basal ganglia consider MRI to rule out stroke. CT angio head and neck revealed no evidence of dissection of the cervical internal carotid arteries or vertebral arteries or any evidence of significant stenosis at the carotid bifurcations. No evidence of intracranial high-grade stenosis or intracranial aneurysm. 04/29 Patient remains on heparin drip and last evening she received warfarin 7.5 mg and INR this morning is 1.5. We will order another 7.5 again tonight. She seems to be anxious to go home. Blood pressure 131/80, pulse ox 98% on room air, heart rate 70. PHYSICAL EXAMINATION: This is a 49-year-old female in no apparent distress at the time of my examination. HEENT: Head is atraumatic, normocephalic. Pupils are equal, round. Sclerae an icteric. Conjunctivae are clear. Mucous membranes of the mouth are moist. Neck is supple. There is no jugular venous distention. No carotid bruit is heard. CHEST EXAMINATION: Lungs are clear to auscultation. No chest wall tenderness is noted on palpation or with deep breathing. HEART EXAMINATION: Heart regular rate and rhythm. S1, S2 heard. No murmurs, gallops or rub. ABDOMEN: Soft, nontender. Bowel sounds are heard. obese. EXTREMITIES: 2+ peripheral pulses with no evidence of peripheral edema and no calf tenderness noted. NEUROLOGIC EXAMINATION: Patient is awake, alert and oriented x3. IMPRESSION AND PLAN: History of mitral valve replacement 2020 Supratherapeutic INR on Coumadin NSTEMI, normal coronary arteries on cardiac catheterization Dyspnea Chest pain Nonischemic cardiomyopathy, EF 30-35% Mechanical valve with thrombus versus vegetation on SHELBY Hypodensity found on CT scan of the brain in the right basal ganglia PLAN: Continue patient on aspirin 81 mg daily, Lopressor 25 mg twice daily, Aldactone 25 mg daily Continue patient on Farxiga 10 mg daily Continue heparin and warfarin, pharmacy dosing, INR goal 2.5+ We will order Coumadin 7.5 mg tonight Plan for possible discharge home tomorrow. Nurse practitioner note has been reviewed, I agree with documented findings and plan of care. Patient was seen and examined. Objective - Vital Signs Vital signs: Vital Signs Temp 98.0 F 04/29/24 08:00 Pulse 68 04/29/24 08:00 Resp 14 04/29/24 08:00 BP 117/79 04/29/24 08:00 Pulse Ox 100 04/29/24 08:00 FiO2 Intake & Output 04/28/24 04/29/24 04/29/24 18:59 06:59 18:59 Intake Total 971.146 136.854 Output Total 800 1200 Balance 171.146 -1200 136.854 Weight 104.3 kg 104.3 kg Intake: Intake, IV Titration 113.146 136.854 Amount Heparin Sod,Pork in 0.45% 113.146 136.854 NaCl 25,000 unit In 0.45 % NaCl 1 250ml.bag @ 9.76 UNITS/KG/HR 10.004 mls/ hr IV .Q24H [facility] Rx#: [id number] Oral 858 Output: Urine 800 1200 Other: Voiding Method Toilet Toilet Toilet # Voids 2 # Bowel Movements 1 - Labs CBC & Chem 7: 04/29/24 07:17 04/29/24 07:17 Labs: Abnormal Lab Results - Last 24 Hours (Table) 04/28/24 04/28/24 04/29/24 Range/Units 15:21 22:22 07:17 PT 15.3 H (10.0-12.5) sec INR 1.5 H (<1.2) APTT 115.0 H* 58.5 H (22.0-30.0) sec Microbiology - Last 24 Hours (Table) 04/27/24 16:06 Blood Culture - Preliminary Blood 04/23/24 17:59 Blood Culture - Final Blood 04/23/24 17:53 Blood Culture - Final Blood
--- NOTE | 2024-04-29 14:16 | MR ---
EXAMINATION TYPE: MR brain wo/w con DATE OF EXAM: 04/29/2024 1:38 PM CLINICAL INDICATION:Female, 49 years old with history of visual disturbance. stroke. R/o demylinati ng dz; PHH, Visual disturbance, evaluate for demyelinating disease. COMPARISON: 09/09/2021 11/28/2019 TECHNIQUE: Multi planar, multi sequence imaging was performed through the brain including: T1, T2, In version recovery, susceptibility weighted imaging and gradient echo imaging and Diffusion weighted im aging. The patient was then given intravenous contrast and multi planar, T1 fat-saturation images wer e obtained. IV Contrast: 10 cc Gadavist FINDINGS: The garcia-white junctions, ventricular system, basal cisterns appear unremarkable. Diffusion-weighted imaging shows restricted diffusion along the right periventricular white matter. Intracranial arteri al flow voids are maintained. Midline structures show no abnormality. Scattered foci of high T2 signa l intensity are seen within the periventricular white matter which are not orthogonal to the lateral ventricles. White matter changes in the cerebellum. Susceptibility weighted images do not reveal any evidence for micro-hemorrhage. After administration of gadolinium, no abnormal enhancement is seen. The bone marrow signal is within normal limits. Paranasal sinuses and mastoid air cells: No significant paranasal sinus disease. Visualized orbits: Orbital contents are intact. 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 There are other white matter lalo nges almost all of which are not orthogonal to the lateral ventricles. However the acute ischemia is orthogonal and possibly related to demyelination.
[2024-04-29] MEDS: WARFARIN 7.5 MG TAB PO ONE (16:55)
[2024-04-29] MEDS: traMADol 50 MG TAB PO PRN (21:10)
[2024-04-29 21:39] LABS: Chol/HDL Ratio 4.32 Ratio; LDL Cholesterol,Calculated 128.5 mg/dL (0.0-131.0)
[2024-04-30 08:20] LABS: INR 1.7 (<1.2); Prothrombin Time 17.7 sec (10.0-12.5)
[2024-04-30 08:21] LABS: Partial Thromboplastin Time 52.4 sec (22.0-30.0)
[2024-04-30] MEDS: DICYCLOMINE 20 MG TAB PO PRN (12:49)
--- NOTE | 2024-04-30 13:35 | P.PN ---
Subjective Progress Note Date: 04/30/24 This is a 49-year-old woman with history of mitral valve replacement in 2019, rheumatoid arthritis, Crohn disease who present emergency department because of shortness of breath and chest pain. Neurology is consulted for transient vision loss. States that for the past 1 year she has been having transient blurry vision and happens maybe once a month and it lasts a few seconds at a. She states that she has been having headache and happens at different regions in half and over the temporal, occipital, parietal or central region and states the headache is usually 11/10 to a throbbing class IV hours does have nausea but no vomiting does have photophobia and phonophobia. She has to be in a quiet dark place. She states if she would have the headache then visual disturbance and sometimes without the headache. She sees Dr. Timmons for neurological care and had images and was told she has multiple white matter changes and there is a concern for demyelinating disease and [facility]. She states her symptoms resolved with Topamax to 50 mg as needed. It seems that she had episode yesterday. Denies any history of strokes. Patient denies any tobacco use or illicit drug use During this hospital visit she Underwent transesophageal echocardiogram today which showed mobile echodensity which appears more consistent with vegetations than thrombus attached to the mitral ring leaflet per the cardiology team. This hospital visit her initial INR is 5.2 then because of the SHELBY the patient was placed on heparin drip. 04/29. Patient seen and examined. INR is still subtherapeutic. MRI pending 04/30. Patient seen and examined. INR this morning is 1.7,. MRI brain done showed acute/subacute CVA involving the right periventricular white matter REVIEW OF SYSTEMS: CONSTITUTIONAL: No fever, no malaise,. CARDIOVASCULAR: No chest pain, no palpitations, no syncope. PULMONARY: No shortness of breath, no cough, GASTROINTESTINAL: No diarrhea, no nausea, no vomiting, no abdominal pain. NEUROLOGICAL: No headaches, no weakness, PHYSICAL EXAMINATION: GENERAL: The patient is alert and oriented x3, not in any acute distress. Well developed, well nourished. HEENT: Pupils are round and equally reacting to light. EOMI. No scleral icterus. No conjunctival pallor. Normocephalic, atraumatic. No pharyngeal erythema. No thyromegaly. CARDIOVASCULAR: S1 and S2 present. No murmurs, rubs, or gallops. PULMONARY: Chest is clear to auscultation, no wheezing or crackles. ABDOMEN: Soft, nontender, nondistended, normoactive bowel sounds. No palpable organomegaly. MUSCULOSKELETAL: No joint swelling or deformity. EXTREMITIES: No cyanosis, clubbing, or pedal edema. NEUROLOGICAL: Gross neurological examination did not reveal any focal deficits. SKIN: No rashes. Assessment and plan History of mitral valve replacement 2020 Supratherapeutic INR on Coumadin NSTEMI, normal coronary arteries on cardiac catheterization Acute CVA Dyspnea Chest pain Nonischemic cardiomyopathy, EF 30-35% Mechanical valve with thrombus versus vegetation on SHELBY Hypodensity found on CT scan of the brain in the right basal ganglia Monitor vital signs Monitor CBC Monitor CMP Continue telemetry monitoring Continue pharmacy to dose heparin Continue Coumadin pharmacy to dose Continue Farxiga Continue aspirin, Lopressor, Aldactone MRI brain done showed acute/subacute CVA involving the right periventricular white matter Neurology following ID following CT surgery following Labs and medication were reviewed.. Continue same treatment. Continue with symptomatic treatment. Resume home medication. Monitor labs and vitals. DVT and GI prophylaxis. Further recommendations as per clinical course of the patient Dictation was produced using [employer] dictation software. please excuse any grammatical, word or spelling errors. Objective - Vital Signs Vital signs: Vital Signs Temp 98.2 F 04/30/24 07:35 Pulse 71 04/30/24 07:35 Resp 16 04/30/24 07:35 BP 101/62 04/30/24 07:35 Pulse Ox 95 04/30/24 09:45 FiO2 Intake & Output 04/29/24 04/30/24 04/30/24 18:59 06:59 18:59 Intake Total 1988.854 958 Output Total 950 800 Balance 1038.854 -800 958 Weight 104.3 kg 104.5 kg Intake: IV 72 78 Heparin Sod,Pork in 0.45% 72 78 NaCl 25,000 unit In 0.45 % NaCl 1 250ml.bag @ 9.76 UNITS/KG/HR 10.004 mls/ hr IV .Q24H [facility] Rx#: [id number] Intake, IV Titration 136.854 80 Amount Heparin Sod,Pork in 0.45% 136.854 NaCl 25,000 unit In 0.45 % NaCl 1 250ml.bag @ 9.76 UNITS/KG/HR 10.004 mls/ hr IV .Q24H [facility] Rx#: [id number] IV Fluid Continuation 1, 80 000 ml @ 0 mls/hr IV .[facility] Rx#:[id number] Oral 1780 800 Output: Urine 950 800 Other: Voiding Method Toilet Toilet - Labs CBC & Chem 7: 04/29/24 07:17 04/29/24 07:17 Labs: Abnormal Lab Results - Last 24 Hours (Table) 04/28/24 04/30/24 Range/Units 08:39 07:38 PT 17.7 H (10.0-12.5) sec INR 1.7 H (<1.2) APTT 52.4 H (22.0-30.0) sec Triglycerides 199.00 H (0.00-149.00) mg/dL Cholesterol 219.00 H (0.00-200.00) mg/dL Microbiology - Last 24 Hours (Table) 04/27/24 16:06 Blood Culture - Preliminary Blood 04/28/24 08:39 Blood Culture - Preliminary Blood
--- NOTE | 2024-04-30 14:14 | P.PN ---
Subjective Progress Note Date: 04/30/24 History of present illness: Patient is a pleasant 49-year-old significant past medical history of mitral valve replacement in 2019, rheumatoid arthritis seizure disorder, Crohn's disease, presented to the emergency department with complaints of shortness of breath and chest pain. She does not smoke, no alcohol. She reports over the past 3 days her shortness of breath has been getting worse to the point where she was unable to lay flat and unable to walk short distances. She did have episode of chest pain yesterday, describes it as a pain of pain on her left chest. She also has been breaking out in sweats for the past 1 week and has been significantly worse over the past 2 days. He had followed with Dr. Winters previously but has had insurance issues and has not seen a circuitry negative inspector recently. She reports she is having difficulty controlling her INR levels. She was last seen in the hospital 09/2023 and echocardiogram at that time with EF 55-60%, mild LVH, mitral valve prosthesis with normal function. Labs reviewed troponin abnormal 0.082, 0.682, 0.796. BNP 2530, INR on arrival was 5.2, 4.6 this morning. WBC 15.3. She denies any recent illness, fevers or chills. She was started on Lasix 40 mg IV every 8 hours. Chest x-ray shows mildmoderate central vascular congestion. She does not have any chest pain today. She still has shortness of breath but is able to walk to the bathroom easier. She denies any swelling in her legs but feels like her abdomen is more distended swollen. She has been more fatigued. Blood pressures have been higher recently at other appointmens. ECHO 04/23/24 with EF 30-35%, normal mitral valve prosthesis, moderate to severe aortic regurgitation. She does see a psychiatrist for her depression, no recent increase in stressors. 04/24 She reports that her breathing is significantly better. Denies any chest pain or pressure. She is still having occasional sweats. Was reviewed this morning: INR 3.1, potassium 3.9, creatinine 0.88. INR 1.9 chest x-ray is showing some improvement. Blood pressure is better controlled with systolic BP 110s, she did have 1 episode in the 90s overnight but was asymptomatic. 04/25 Patient is scheduled for cardiac catheterization today with Dr. Mittal. She denies having any chest pain or shortness of breath at this time. Blood pressure 134/86, heart rate 85, pulse ox 97% on room air. Repeat blood work re veals hemoglobin 13.9. Creatinine 0.89 and BUN 26, potassium 3.5. Patient has been maintained on heparin drip. Echocardiogram reveals EF of 30 to 35%. RVSP 48. Normally functioning mitral mechanical valve. Moderate to severe aortic regurgitation. 04/26 Yesterday, patient underwent cardiac catheterization which revealed no significant coronary artery disease. Approach was from the groin with no signs of hematoma. Patient is complaining of back pain and leg pain. She has been on IV Lasix 40 mg every 8 hours. She has been on a heparin drip and she will be resumed back on Coumadin. Pharmacy is dosing. Blood pressure 92/63, heart rate 71, pulse ox 97% on room air. 04/27 Patient underwent SHELBY today which revealed aortic valve tricuspid and functioning normally with moderate central aortic insufficiency. Mechanical mitral valve with normal functioning mechanical leaflets. Mild paravalvular leak. Mobile echodensity which appears more consistent with vegetation then with a thrombus attached to the mitral ring leaflet. No evidence of PFO. Left atrial appendage is free of clot. EF 55%. Patient returned to her room and consults were placed with neurology, cardiothoracic surgery and infectious disease. Patient apparently has been having transient vision loss. Blood pressure 111/69, heart rate 87. Pulse ox 98% on room air. Repeat blood work reveals INR 1.4. Patient has been resumed on Coumadin pharmacy dosing. Hemoglobin 12.7. Creatinine 0.8. Blood cultures are showing no growth 04/28 Yesterday, we started patient on Farxiga. She has been maintained on IV heparin and pharmacy is dosing Coumadin. Blood pressure 112/78, heart rate 65, pulse ox 97% on room air. Patient has been seen by neurology for transient vision loss which has been occurring for her over the past year lasting very briefly along with headaches. Patient has been evaluated by cardiothoracic surgery as well as infectious disease with consensus that due to lack of fever, leukocytosis and negative blood cultures, most likely thrombus versus vegetation on the mitral valve. No antibiotics started. Patient states that she is feeling better today. She denies any vison loss episodes. All questions and concerns from patient have been discussed in detail. All questions answered. INR is 1.4 again. We will order 7.5 mg tonight. Plan for possible discharge home tomorrow. CAT scan of the brain reveals a new hypodense area in the right basal ganglia consider MRI to rule out stroke. CT angio head and neck revealed no evidence of dissection of the cervical internal carotid arteries or vertebral arteries or any evidence of significant stenosis at the carotid bifurcations. No evidence of intracranial high-grade stenosis or intracranial aneurysm. 04/29 Patient remains on heparin drip and last evening she received warfarin 7.5 mg and INR this morning is 1.5. We will order another 7.5 again tonight. She seems to be anxious to go home. Blood pressure 131/80, pulse ox 98% on room air , heart rate 70. 04/30/2024 Patient's INR is 1.7. She has received 2 doses of warfarin 7.5 over last 2 days. Patient is eager to go home. Hemodynamically stable. Denies any further amaurosis fugax or any neurological symptoms. Denies any chest pain appears euvolemic. Normotensive, sinus rhythm on telemetry. Her MRI did show subacute CVA versus demyelination. PHYSICAL EXAMINATION: This is a 49-year-old female in no apparent distress at the time of my examination. HEENT: Head is atraumatic, normocephalic. Pupils are equal, round. Sclerae anicteric. Conjunctivae are clear. Mucous membranes of the mouth are moist. Neck is supple. There is no jugular venous distention. No carotid bruit is heard. CHEST EXAMINATION: Lungs are clear to auscultation. No chest wall tenderness is noted on palpation or with deep breathing. HEART EXAMINATION: Heart regular rate and rhythm. S1, S2 heard. No murmurs, gallops or rub. ABDOMEN: Soft, nontender. Bowel sounds are heard. obese. EXTREMITIES: 2+ peripheral pulses with no evidence of peripheral edema and no calf tenderness noted. NEUROLOGIC EXAMINATION: Patient is awake, alert and oriented x3. IMPRESSION AND PLAN: History of mitral valve replacement 2020 Supratherapeutic INR on Coumadin NSTEMI, normal coronary arteries on cardiac catheterization Dyspnea Chest pain Nonischemic cardiomyopathy, EF 30-35% Mechanical valve with thrombus versus vegetation on SHELBY Hypodensity found on CT scan of the brain in the right basal ganglia PLAN: Continue patient on aspirin 81 mg daily, Lopressor 25 mg twice daily, Aldactone 25 mg daily Continue patient on Farxiga 10 mg daily Continue heparin and warfarin, pharmacy dosing, INR goal 2.5-3.5 We will order Coumadin 10 mg tonight Signs of bleeding. Will continue to monitor At this time small growth on the mitral valve could be concluded to be a thrombus as patient's CRP, ESR has been negative and blood cultures have been negative. Patient was supratherapeutic on admission and she has not missed any of her anticoagulation doses. Unclear why patient would develop thrombus. As there is no compelling evidence for infective endocarditis, [facility] is not planning to do any surgical procedure. Once patient's INR is therapeutic, she is cleared to be discharged from cardiovascular standpoint. Will maintain her on aspirin along with warfarin Objective - Vital Signs Vital signs: Vital Signs Temp 97.6 F 04/30/24 11:08 Pulse 77 04/30/24 11:08 Resp 16 04/30/24 11:08 BP 120/76 04/30/24 11:08 Pulse Ox 94 L 04/30/24 11:08 FiO2 Intake & Output 04/29/24 04/30/24 04/30/24 18:59 06:59 18:59 Intake Total 8876.082 9126 Output Total 950 800 Balance 1038.854 -800 1438 Weight 104.3 kg 104.5 kg Intake: IV 72 78 Heparin Sod,Pork in 0.45% 72 78 NaCl 25,000 unit In 0.45 % NaCl 1 250ml.bag @ 9.76 UNITS/KG/HR 10.004 mls/ hr IV .Q24H [facility] Rx#: [id number] Intake, IV Titration 136.854 80 Amount Heparin Sod,Pork in 0.45% 136.854 NaCl 25,000 unit In 0.45 % NaCl 1 250ml.bag @ 9.76 UNITS/KG/HR 10.004 mls/ hr IV .Q24H [facility] Rx#: [id number] IV Fluid Continuation 1, 80 000 ml @ 0 mls/hr IV .STK -MED ONE Rx#:[id number] Oral 1780 1280 Output: Urine 950 800 Other: Voiding Method Toilet Toilet - Labs CBC & Chem 7: 04/29/24 07:17 04/29/24 07:17 Labs: Abnormal Lab Results - Last 24 Hours (Table) 04/28/24 04/30/24 Range/Units 08:39 07:38 PT 17.7 H (10.0-12.5) sec INR 1.7 H (<1.2) APTT 52.4 H (22.0-30.0) sec Triglycerides 199.00 H (0.00-149.00) mg/dL Cholesterol 219.00 H (0.00-200.00) mg/dL Microbiology - Last 24 Hours (Table) 04/27/24 16:06 Blood Culture - Preliminary Blood 04/28/24 08:39 Blood Culture - Preliminary Blood
--- NOTE | 2024-04-30 14:52 | P.PN ---
Subjective Progress Note Date: 04/30/24 am following-up with patient and she feels about the same from neurological perspective and nothing new. No further visual disturbance. Objective - Vital Signs Vital signs: Vital Signs Temp 97.6 F 04/30/24 11:08 Pulse 77 04/30/24 11:08 Resp 16 04/30/24 11:08 BP 120/76 04/30/24 11:08 Pulse Ox 94 L 04/30/24 11:08 FiO2 Intake & Output 04/29/24 04/30/24 04/30/24 18:59 06:59 18:59 Intake Total 4641.905 1578 Output Total 950 800 Balance 1038.854 -800 1438 Weight 104.3 kg 104.5 kg Intake: IV 72 78 Heparin Sod,Pork in 0.45% 72 78 NaCl 25,000 unit In 0.45 % NaCl 1 250ml.bag @ 9.76 UNITS/KG/HR 10.004 mls/ hr IV .Q24H [facility] Rx#: [id number] Intake, IV Titration 136.854 80 Amount Heparin Sod,Pork in 0.45% 136.854 NaCl 25,000 unit In 0.45 % NaCl 1 250ml.bag @ 9.76 UNITS/KG/HR 10.004 mls/ hr IV .Q24H [facility] Rx#: [id number] IV Fluid Continuation 1, 80 000 ml @ 0 mls/hr IV .STK -MED ONE Rx#:[id number] Oral 1780 1280 Output: Urine 950 800 Other: Voiding Method Toilet Toilet - Exam GENERAL: The patient is sitting in a recliner chair and is not in acute distress. NEUROLOGICAL: Higher mental function: The patient is awake, alert, oriented to self, place and time. Patient is following commands. No aphasia and no neglect. Cranial nerves: The pupils are round, equal and reactive to light and acc ommodation. Visual correa are full to confrontation throughout. Extraocular movement is intact no nystagmus is noted. Facial sensation is normal to touch throughout. The facial strength is normal throughout. Hearing is normal bilaterally to hand rub. Tongue is midline and moved [id number] without any difficulty. No dysarthria is noted. Shoulder shrug is normal bilaterally. Motor: The strength is 5 over 5 throughout. Normal tone and bulk. Cerebellum: Normal finger to nose heel to bethea bilaterally. Sensation: Sensation is normal to touch throughout. Reflexes (right/left): 2+ throughout. Plantars are downgoing bilaterally. Some of the work-up during this hospital visit: TSH is 0.93 Vitamin B12 is 282 Lipid panel: TG 199, cholestrol 219, LDL 128 and HDL 50 Transesophageal echocardiogram today which showed mobile echodensity which appears more consistent with vegetations than thrombus attached to the mitral ring leaflet per the cardiology team. CT head is reported as improved from 2018 hypodense area in the right basal ganglia. Consider evaluation with MRI to rule out stroke. I personally reviewed her prior image and had MRI in that same territory so therefore where the radiologist was pointing out is old. CTA head ane neck: Evidence of dissection of cervical internal carotid artery or vertebral artery or any evidence of significant stenosis at the carotid bifurcation. No evidence of intracranial high-grade stenosis or intracranial aneurysm. 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 There are other white matter changes almost all of which are not orthogonal to the lateral ventricle. However the acute ischemia is is orthogonal and possibly related to demyelination. I personally reviewed the MRI and I felt the diffusion restriction over the right periventricular could be related due to demyelination especially with numerous multiple FLAIR changes on MRI and had few in cerebellum . - Labs CBC & Chem 7: 04/29/24 07:17 04/29/24 07:17 Labs: Abnormal Lab Results - Last 24 Hours (Table) 04/28/24 04/30/24 Range/Units 08:39 07:38 PT 17.7 H (10.0-12.5) sec INR 1.7 H (<1.2) APTT 52.4 H (22.0-30.0) sec Triglycerides 199.00 H (0.00-149.00) mg/dL Cholesterol 219.00 H (0.00-200.00) mg/dL Microbiology - Last 24 Hours (Table) 04/27/24 16:06 Blood Culture - Preliminary Blood 04/28/24 08:39 Blood Culture - Preliminary Blood Assessment and Plan Assessment: This is a 49-year-old woman with history of mitral valve replacement in 2019 and is on Coumadin, rheumatoid arthritis, Crohn's disease who presented emergency department because of shortness of breath and chest pain. She underwent transesophageal echocardiogram and was felt to have mobile echodensity which appears more consistent with vegetation than a thrombus attached to the mitral ring leaflet per cardiology. She had an episode yesterday therefore neurology was consulted for concern for stroke. Patient states that she has been having these episodes for the past 1 year and she has headaches usually with them and sometimes she does not lasting for few seconds. She feels that episodes are and the headache resolved with Topamax and she follows up with a neurologist as outpatient. Recurrent Transient blurry vision for past one year and had one episode yesterd ay: Seems more ocular migraine. She feels her symptoms resolve with Topmax but is on PRN and was told by her neurologist (Dr. Ty she has multiple white matter changes and there is concern for demylinating disease and is in process of seeing [facility] Neurology team as outpatient referred by her Neurologist). CT head reported as small hypodensity on right basal ganglia since [address] I personally reviewed her prior image and had MRI in that same territory so therefore where the radiologist was pointing out is old. Recent MRI Brain is reported as Acute/subacute CVA involving the right periventricular white matter. However the acute ischemia is is orthogonal and possibly related to demyelination. I personally reviewed the MRI and I felt the diffusion restriction over the right periventricular could be related due to demyelination especially with numerous multiple FLAIR changes on MRI and had few in cerebellum . Mobile echodensity attached to the mitral ring leaflet and cardiology felt appeared more consistent with vegetation and thrombus Low normal vitamin B12 (282) History of mitral valve replacement 2019 and is on Coumadin Underlying history of rheumatoid arthritis Underlying history of Crohn's disease Plan: MRI Brain: Acute/subacute CVA involving the right periventricular white matter. There are other white matter changes almost all of which are not orthogonal to the lateral ventricle. However the acute ischemia is is orthogonal and possibly related to demyelination. I personally reviewed the MRI and I felt the diffusion restriction over the right periventricular could be related due to demyelination especially with numerous multiple FLAIR changes on MRI and had few in cerebellum . There could be diffusion restriction in begining on MRI then later enhancement. I cannot rule out stroke but feel more due to demyinationg. Patient states she has history of numerous white matter changes in the past and was being seen by Dr. Berrios who referred her to [facility] Neurology team for possible Multiple Sclerosis. Recommend MRI Cervical spine and lumbar puncture as outpatient. Patient states she has improvement with a headache as well as visual disturbance with Topamax 50 mg as needed that was prescribed by her neurologist as an outpatient. Therefore I will change it to Topamax 50 mg 1 tablet twice daily scheduled (started on 04/27/24) and since has no further visual disturbance or headache. For low normal vitamin B12, I started patient on Vitamin B12 1000mcg daily. Cardiothoracic surgery team is consulted and recommending medical management. Infection disease team is consulted Patient is on Coumadin and on aspirin 81 mg daily (ASA is new that was started by cardiology team). Will defer the rest of the medical management to the primary and other specialist The plan is discussed with patient, primary team and cardiology team. Time with Patient: Less than 30
--- NOTE | 2024-04-30 15:09 | P.PN ---
Subjective Progress Note Date: 04/30/24 Principal diagnosis: Reason for follow-up is abnormal echo concerning for mitral valve Patient is a 49-year-old female with a past medical history significant for fibromyalgia hypertension rheumatoid arthritis seizure disorder in this patient who is s/p mechanical aortic valve replacement few years ago presenting to the hospital with chest pain and shortness of breath he did have workup with concern for possible vegetation on the mitral valve prompting this consultation. On today's evaluation that is 04/30/2024, Patient is afebrile patient is currently on room air and denies having any shortness of breath, the patient denies any chest pain or cough, the patient denies any nausea vomiting did not have any abdominal pain and no diarrhea, patient seem to be slightly absent and the patient did have a MRI of the brain with evidence of acute/subacute CVA involving the right elevated further white matter Patient did have INR of 1.7 today no CBC or BMP was done patient did have multiple blood culture that has been negative Objective - Vital Signs Vital signs: Vital Signs Temp 98.2 F 04/30/24 07:35 Pulse 71 04/30/24 07:35 Resp 16 04/30/24 07:35 BP 101/62 04/30/24 07:35 Pulse Ox 95 04/30/24 09:45 FiO2 Intake & Output 04/29/24 04/30/24 04/30/24 18:59 06:59 18:59 Intake Total 1988.854 958 Output Total 950 800 Balance 1038.854 -800 958 Weight 104.3 kg 104.5 kg Intake: IV 72 78 Heparin Sod,Pork in 0.45% 72 78 NaCl 25,000 unit In 0.45 % NaCl 1 250ml.bag @ 9.76 UNITS/KG/HR 10.004 mls/ hr IV .Q24H [facility] Rx#: [id number] Intake, IV Titration 136.854 80 Amount Heparin Sod,Pork in 0.45% 136.854 NaCl 25,000 unit In 0.45 % NaCl 1 250ml.bag @ 9.76 UNITS/KG/HR 10.004 mls/ hr IV .Q24H [facility] Rx#: [id number] IV Fluid Continuation 1, 80 000 ml @ 0 mls/hr IV .STK -MED ONE Rx#:[id number] Oral 1780 800 Output: Urine 950 800 Other: Voiding Method Toilet Toilet - Exam GENERAL DESCRIPTION: Middle-aged female lying in bed in no distress RESPIRATORY SYSTEM: Unlabored breathing , decreased breath sounds at bases HEART: S1 S2 regular rate and rhythm , ABDOMEN: Soft , no tenderness EXTREMITIES: No edema feet - Labs CBC & Chem 7: 04/29/24 07:17 04/29/24 07:17 Labs: Abnormal Lab Results - Last 24 Hours (Table) 04/28/24 04/30/24 Range/Units 08:39 07:38 PT 17.7 H (10.0-12.5) sec INR 1.7 H (<1.2) APTT 52.4 H (22.0-30.0) sec Triglycerides 199.00 H (0.00-149.00) mg/dL Cholesterol 219.00 H (0.00-200.00) mg/dL Microbiology - Last 24 Hours (Table) 04/27/24 16:06 Blood Culture - Preliminary Blood 04/28/24 08:39 Blood Culture - Preliminary Blood Assessment and Plan (1) Abnormal echocardiogram Current Visit: Yes Status: Acute Code(s): R93.1 - ABNORMAL FINDINGS ON DX IMAGING OF HEART AND COR CIRC SNOMED Code(s): 264271012 (2) Mitral valve vegetation Current Visit: Yes Status: Acute Code(s): I33.0 - ACUTE AND SUBACUTE INFECTIVE ENDOCARDITIS SNOMED Code(s): 072740678 Plan: 1patient presented to hospital with shortness of breath and chest pain in this patient who did have a history of mechanical mitral valve replacement a few years ago and apparently the patient has not been compliant with anticoagulation in the outpatient setting and did have a subtherapeutic INR on admission now with evidence of abnormal SHELBY concerning for possible thrombus versus vegetation on the mitral valve patient did not have any fever or elevated white count does not look toxic and did have a negative blood culture on this admission will make vegetation/endocarditis less likely 2-patient did have multiple blood culture over the last few days that has been negative patient did have a normal CRP procalcitonin and ESR there will go against possible endocarditis and to monitor closely off antibiotics Dictation was produced using [employer] ([employer]) dictation software. please excuse any grammatical, word or spelling errors. Time with Patient: Less than 30
[2024-04-30] MEDS: WARFARIN 10 MG TAB PO ONE (17:00)
[2024-05-01 08:14] LABS: INR 2.2 (<1.2); Partial Thromboplastin Time 65.8 sec (22.0-30.0)
--- NOTE | 2024-05-01 13:00 | P.PN ---
Subjective Progress Note Date: 05/01/24 History of present illness: Patient is a pleasant 49-year-old significant past medical history of mitral valve replacement in 2019, rheumatoid arthritis seizure disorder, Crohn's disease, presented to the emergency department with complaints of shortness of breath and chest pain. She does not smoke, no alcohol. She reports over the past 3 days her shortness of breath has been getting worse to the point where she was unable to lay flat and unable to walk short distances. She did have episode of chest pain yesterday, describes it as a pain of pain on her left chest. She also has been breaking out in sweats for the past 1 week and has been significantly worse over the past 2 days. He had followed with Dr. 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 She reports she is having difficulty controlling her INR levels. She was last seen in the hospital 09/2023 and echocardiogram at that time with EF 55-60%, mild LVH, mitral valve prosthesis with normal function. Labs reviewed troponin abnormal 0.082, 0.682, 0.796. BNP 2530, INR on arrival was 5.2, 4.6 this morning. WBC 15.3. She denies any recent illness, fevers or chills. She was started on Lasix 40 mg IV every 8 hours. Chest x-ray shows mildmoderate central vascular congestion. She does not have any chest pain today. She still has shortness of breath but is able to walk to the bathroom easier. She denies any swelling in her legs but feels like her abdomen is more distended swollen. She has been more fatigued. Blood pressures have been higher recently at other appointmens. ECHO 04/23/24 with EF 30-35%, normal mitral valve prosthesis, moderate to severe aortic regurgitation. She does see a psychiatrist for her depression, no recent increase in stressors. 04/24 She reports that her breathing is significantly better. Denies any chest pain or pressure. She is still having occasional sweats. Was reviewed this morning: INR 3.1, potassium 3.9, creatinine 0.88. INR 1.9 chest x-ray is showing some improvement. Blood pressure is better controlled with systolic BP 110s, she did have 1 episode in the 90s overnight but was asymptomatic. 04/25 Patient is scheduled for cardiac catheterization today with Dr. Mittal. She denies having any chest pain or shortness of breath at this time. Blood pressure 134/86, heart rate 85, pulse ox 97% on room air. Repeat blood work re veals hemoglobin 13.9. Creatinine 0.89 and BUN 26, potassium 3.5. Patient has been maintained on heparin drip. Echocardiogram reveals EF of 30 to 35%. RVSP 48. Normally functioning mitral mechanical valve. Moderate to severe aortic regurgitation. 04/26 Yesterday, patient underwent cardiac catheterization which revealed no significant coronary artery disease. Approach was from the groin with no signs of hematoma. Patient is complaining of back pain and leg pain. She has been on IV Lasix 40 mg every 8 hours. She has been on a heparin drip and she will be resumed back on Coumadin. Pharmacy is dosing. Blood pressure 92/63, heart rate 71, pulse ox 97% on room air. 04/27 Patient underwent SHELBY today which revealed aortic valve tricuspid and functioning normally with moderate central aortic insufficiency. Mechanical mitral valve with normal functioning mechanical leaflets. Mild paravalvular leak. Mobile echodensity which appears more consistent with vegetation then with a thrombus attached to the mitral ring leaflet. No evidence of PFO. Left atrial appendage is free of clot. EF 55%. Patient returned to her room and consults were placed with neurology, cardiothoracic surgery and infectious disease. Patient apparently has been having transient vision loss. Blood pressure 111/69, heart rate 87. Pulse ox 98% on room air. Repeat blood work reveals INR 1.4. Patient has been resumed on Coumadin pharmacy dosing. Hemoglobin 12.7. Creatinine 0.8. Blood cultures are showing no growth 04/28 Yesterday, we started patient on Farxiga. She has been maintained on IV heparin and pharmacy is dosing Coumadin. Blood pressure 112/78, heart rate 65, pulse ox 97% on room air. Patient has been seen by neurology for transient vision loss which has been occurring for her over the past year lasting very briefly along with headaches. Patient has been evaluated by cardiothoracic surgery as well as infectious disease with consensus that due to lack of fever, leukocytosis and negative blood cultures, most likely thrombus versus vegetation on the mitral valve. No antibiotics started. Patient states that she is feeling better today. She denies any vison loss episodes. All questions and concerns from patient have been discussed in detail. All questions answered. INR is 1.4 again. We will order 7.5 mg tonight. Plan for possible discharge home tomorrow. CAT scan of the brain reveals a new hypodense area in the right basal ganglia consider MRI to rule out stroke. CT angio head and neck revealed no evidence of dissection of the cervical internal carotid arteries or vertebral arteries or any evidence of significant stenosis at the carotid bifurcations. No evidence of intracranial high-grade stenosis or intracranial aneurysm. 04/29 Patient remains on heparin drip and last evening she received warfarin 7.5 mg and INR this morning is 1.5. We will order another 7.5 again tonight. She seems to be anxious to go home. Blood pressure 131/80, pulse ox 98% on room air , heart rate 70. 04/30/2024 Patient's INR is 1.7. She has received 2 doses of warfarin 7.5 over last 2 days. Patient is eager to go home. Hemodynamically stable. Denies any further amaurosis fugax or any neurological symptoms. Denies any chest pain appears euvolemic. Normotensive, sinus rhythm on telemetry. Her MRI did show subacute CVA versus demyelination. May 01, 2024 Patient's INR is 2.2 today. Yesterday she received 10 mg of warfarin. Today she will receive 5 mg of warfarin. Hemodynamically stable, no further neurological symptoms. Euvolemic, normotensive, sinus rhythm on telemetry PHYSICAL EXAMINATION: This is a 49-year-old female in no apparent distress at the time of my examination. HEENT: Head is atraumatic, normocephalic. Pupils are equal, round. Sclerae anicteric. Conjunctivae are clear. Mucous membranes of the mouth are moist. Neck is supple. There is no jugular venous distention. No carotid bruit is heard. CHEST EXAMINATION: Lungs are clear to auscultation. No chest wall tenderness is noted on palpation or with deep breathing. HEART EXAMINATION: Heart regular rate and rhythm. S1, S2 heard. No murmurs, gallops or rub. ABDOMEN: Soft, nontender. Bowel sounds are heard. obese. EXTREMITIES: 2+ peripheral pulses with no evidence of peripheral edema and no calf tenderness noted. NEUROLOGIC EXAMINATION: Patient is awake, alert and oriented x3. IMPRESSION AND PLAN: History of mitral valve replacement 2020 Supratherapeutic INR on Coumadin NSTEMI, normal coronary arteries on cardiac catheterization Dyspnea Chest pain Nonischemic cardiomyopathy, EF 30-35% Mechanical valve with thrombus versus vegetation on SHELBY Hypodensity found on CT scan of the brain in the right basal ganglia PLAN: Continue patient on aspirin 81 mg daily, Lopressor 25 mg twice daily, Aldactone 25 mg daily Continue patient on Farxiga 10 mg daily Continue heparin and warfarin, pharmacy dosing, INR goal 2.5-3.5 We will order Coumadin 5mg tonight Signs of bleeding. Will continue to monitor At this time small growth on the mitral valve could be concluded to be a thrombus as patient's CRP, ESR has been negative and blood cultures have been negative. Patient was supratherapeutic on admission and she has not missed any of her anticoagulation doses. Unclear why patient would develop thrombus. As there is no compelling evidence for infective endocarditis, CTS is not planning to do any surgical procedure. Once patient's INR is therapeutic, she is cleared to be discharged from cardiovascular standpoint. Will maintain her on aspirin along with warfarin Objective - Vital Signs Vital signs: Vital Signs Temp 97.6 F 05/01/24 11:32 Pulse 69 05/01/24 11:32 Resp 16 05/01/24 11:32 BP 94/63 05/01/24 11:32 Pulse Ox 93 L 05/01/24 11:32 FiO2 Intake & Output 04/30/24 05/01/24 05/01/24 18:59 06:59 18:59 Intake Total 2306 Output Total 400 1900 Balance 1906 -1900 Weight 105.1 kg Intake: IV 156 Heparin Sod,Pork in 0.45% 156 NaCl 25,000 unit In 0.45 % NaCl 1 250ml.bag @ 9.76 UNITS/KG/HR 10.004 mls/ hr IV .Q24H [facility] Rx#: [id number] Intake, IV Titration 330 Amount Heparin Sod,Pork in 0.45% 250 NaCl 25,000 unit In 0.45 % NaCl 1 250ml.bag @ 9.76 UNITS/KG/HR 10.004 mls/ hr IV .Q24H [facility] Rx#: [id number] IV Fluid Continuation 1, 80 000 ml @ 0 mls/hr IV .STK -MED [facility] Rx#:[id number] Oral 1820 Output: Urine 400 1900 - Labs CBC & Chem 7: 04/29/24 07:17 07/05/24 07:17 Labs: Abnormal Lab Results - Last 24 Hours (Table) 05/01/24 Range/Units 07:40 PT 22.0 H (10.0-12.5) sec INR 2.2 H (<1.2) APTT 65.8 H (22.0-30.0) sec Microbiology - Last 24 Hours (Table) 04/27/24 16:06 Blood Culture - Preliminary Blood 04/28/24 08:39 Blood Culture - Preliminary Blood
--- NOTE | 2024-05-01 13:20 | P.PN ---
Subjective Progress Note Date: 05/01/24 This is a 49-year-old woman with history of mitral valve replacement in 2019, rheumatoid arthritis, Crohn disease who present emergency department because of shortness of breath and chest pain. Neurology is consulted for transient vision loss. States that for the past 1 year she has been having transient blurry vision and happens maybe once a month and it lasts a few seconds at a. She states that she has been having headache and happens at different regions in half and over the temporal, occipital, parietal or central region and states the headache is usually 11/10 to a throbbing class IV hours does have nausea but no vomiting does have photophobia and phonophobia. She has to be in a quiet dark place. She states if she would have the headache then visual disturbance and sometimes without the headache. She sees Dr. Timmons for neurological care and had images and was told she has multiple white matter changes and there is a concern for demyelinating disease and [facility]. She states her symptoms resolved with Topamax to 50 mg as needed. It seems that she had episode yesterday. Denies any history of strokes. Patient denies any tobacco use or illicit drug use During this hospital visit she Underwent transesophageal echocardiogram today which showed mobile echodensity which appears more consistent with vegetations than thrombus attached to the mitral ring leaflet per the cardiology team. This hospital visit her initial INR is 5.2 then because of the SHELBY the patient was placed on heparin drip. 04/29. Patient seen and examined. INR is still subtherapeutic. MRI pending 04/30. Patient seen and examined. INR this morning is 1.7,. MRI brain done showed acute/subacute CVA involving the right periventricular white matter 05/01. Patient seen and examined. INR this morning is 2.2. Still subtherapeutic as we want the INR more than 2.5 REVIEW OF SYSTEMS: CONSTITUTIONAL: No fever, no malaise,. CARDIOVASCULAR: No chest pain, no palpitations, no syncope. PULMONARY: No shortness of breath, no cough, GASTROINTESTINAL: No diarrhea, no nausea, no vomiting, no abdominal pain. NEUROLOGICAL: No headaches, no weakness, PHYSICAL EXAMINATION: GENERAL: The patient is alert and oriented x3, not in any acute distress. Well developed, well nourished. HEENT: Pupils are round and equally reacting to light. EOMI. No scleral icterus. No conjunctival pallor. Normocephalic, atraumatic. No pharyngeal erythema. No thyromegaly. CARDIOVASCULAR: S1 and S2 present. No murmurs, rubs, or gallops. PULMONARY: Chest is clear to auscultation, no wheezing or crackles. ABDOMEN: Soft, nontender, nondistended, normoactive bowel sounds. No palpable organomegaly. MUSCULOSKELETAL: No joint swelling or deformity. EXTREMITIES: No cyanosis, clubbing, or pedal edema. NEUROLOGICAL: Gross neurological examination did not reveal any focal deficits. SKIN: No rashes. Assessment and plan History of mitral valve replacement 2020 Supratherapeutic INR on Coumadin NSTEMI, normal coronary arteries on cardiac catheterization Acute CVA Dyspnea Chest pain Nonischemic cardiomyopathy, EF 30-35% Mechanical valve with thrombus versus vegetation on SHELBY Hypodensity found on CT scan of the brain in the right basal ganglia Monitor vital signs Monitor CBC Monitor CMP Continue telemetry monitoring Continue pharmacy to dose heparin Continue Coumadin pharmacy to dose Continue Farxiga Continue aspirin, Lopressor, Aldactone MRI brain done showed acute/subacute CVA involving the right periventricular white matter Neurology following ID following CT surgery following Labs and medication were reviewed.. Continue same treatment. Continue with symptomatic treatment. Resume home medication. Monitor labs and vitals. DVT and GI prophylaxis. Further recommendations as per clinical course of the patient Dictation was produced using [employer] dictation software. please excuse any grammatical, word or spelling errors. Objective - Vital Signs Vital signs: Vital Signs Temp 97.3 F L 05/01/24 08:00 Pulse 74 05/01/24 08:00 Resp 16 05/01/24 08:00 BP 108/78 05/01/24 08:00 Pulse Ox 96 05/01/24 08:00 FiO2 Intake & Output 04/30/24 05/01/24 05/01/24 18:59 06:59 18:59 Intake Total 2306 Output Total 400 1900 Balance 1906 -190 Weight 105.1 kg Intake: IV 156 Heparin Sod,Pork in 0.45% 156 NaCl 25,000 unit In 0.45 % NaCl 1 250ml.bag @ 9.76 UNITS/KG/HR 10.004 mls/ hr IV .Q24H [facility] Rx#: [id number] Intake, IV Titration 330 Amount Heparin Sod,Pork in 0.45% 250 NaCl 25,000 unit In 0.45 % NaCl 1 250ml.bag @ 9.76 UNITS/KG/HR 10.004 mls/ hr IV .Q24H [facility] Rx#: [id number] IV Fluid Continuation 1, 80 000 ml @ 0 mls/hr IV .STK -[facility] Rx#:[id number] Oral 1820 Output: Urine 400 1900 - Labs CBC & Chem 7: 04/29/24 07:17 04/29/24 07:17 Labs: Abnormal Lab Results - Last 24 Hours (Table) 05/01/24 Range/Units 07:40 PT 22.0 H (10.0-12.5) sec INR 2.2 H (<1.2) APTT 65.8 H (22.0-30.0) sec Microbiology - Last 24 Hours (Table) 04/27/24 16:06 Blood Culture - Preliminary Blood 04/28/24 08:39 Blood Culture - Preliminary Blood
--- NOTE | 2024-05-01 13:27 | P.PN ---
Subjective Progress Note Date: 05/01/24 I am following-up with patient and feels about the same. Denies of any further visual disturbance or headache. Objective - Vital Signs Vital signs: Vital Signs Temp 97.6 F 05/01/24 11:32 Pulse 69 05/01/24 11:32 Resp 16 05/01/24 11:32 BP 94/63 05/01/24 11:32 Pulse Ox 93 L 05/01/24 11:32 FiO2 Intake & Output 04/30/24 05/01/24 05/01/24 18:59 06:59 18:59 Intake Total 2306 240 Output Total 400 1900 Balance 1906 -1900 240 Weight 105.1 kg Intake: IV 156 Heparin Sod,Pork in 0.45% 156 NaCl 25,000 unit In 0.45 % NaCl 1 250ml.bag @ 9.76 UNITS/KG/HR 10.004 mls/ hr IV .Q24H [facility] Rx#: [id number] Intake, IV Titration 330 Amount Heparin Sod,Pork in 0.45% 250 NaCl 25,000 unit In 0.45 % NaCl 1 250ml.bag @ 9.76 UNITS/KG/HR 10.004 mls/ hr IV .Q24H [facility] Rx#: [id number] IV Fluid Continuation 1, 80 000 ml @ 0 mls/hr IV .K -MED [facility] Rx#:[id number] Oral 1820 240 Output: Urine 400 1900 - Exam GENERAL: The patient is sitting in a recliner chair and is not in acute distress. NEUROLOGICAL: Higher mental function: The patient is awake, alert, oriented to self, place and time. Patient is following commands. No aphasia and no neglect. Cranial nerves: The pupils are round, equal and reactive to light and acco mmodation. Visual correa are full to confrontation throughout. Extraocular movement is intact no nystagmus is noted. Facial sensation is normal to touch throughout. The facial strength is normal throughout. Hearing is normal bilaterally to hand rub. Tongue is midline and moved [id number] without any difficulty. No dysarthria is noted. Shoulder shrug is normal bilaterally. Motor: The strength is 5 over 5 throughout. Normal tone and bulk. Cerebellum: Normal finger to nose heel to bethea bilaterally. Sensation: Sensation is normal to touch throughout. Reflexes (right/left): 2+ throughout. Plantars are downgoing bilaterally. Some of the work-up during this hospital visit: TSH is 0.93 Vitamin B12 is 282 Lipid panel: TG 199, cholestrol 219, LDL 128 and HDL 50 Transesophageal echocardiogram today which showed mobile echodensity which appears more consistent with vegetations than thrombus attached to the mitral ring leaflet per the cardiology team. CT head is reported as improved from 2018 hypodense area in the right basal ganglia. Consider evaluation with MRI to rule out stroke. I personally reviewed her prior image and had MRI in that same territory so therefore where the radiologist was pointing out is old. CTA head ane neck: Evidence of dissection of cervical internal carotid artery or vertebral artery or any evidence of significant stenosis at the carotid bifurcation. No evidence of intracranial high-grade stenosis or intracranial aneurysm. 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 There are other white matter changes almost all of which are not orthogonal to the lateral ventricle. However the acute ischemia is is orthogonal and possibly related to demyelination. I personally reviewed the MRI and I felt the diffusion restriction over the right periventricular could be related due to demyelination especially with numerous multiple FLAIR changes on MRI and had few in cerebellum . - Labs CBC & Chem 7: 04/29/24 07:17 04/29/24 07:17 Labs: Abnormal Lab Results - Last 24 Hours (Table) 05/01/24 Range/Units 07:40 PT 22.0 H (10.0-12.5) sec INR 2.2 H (<1.2) APTT 65.8 H (22.0-30.0) sec Microbiology - Last 24 Hours (Table) 04/27/24 16:06 Blood Culture - Preliminary Blood 04/28/24 08:39 Blood Culture - Preliminary Blood Assessment and Plan Assessment: This is a 49-year-old woman with history of mitral valve replacement in 2019 and is on Coumadin, rheumatoid arthritis, Crohn's disease who presented emergency department because of shortness of breath and chest pain. She underwent transesophageal echocardiogram and was felt to have mobile echodensity which appears more consistent with vegetation than a thrombus attached to the mitral ring leaflet per cardiology. She had an episode yesterday therefore neurology was consulted for concern for stroke. Patient states that she has been having these episodes for the past 1 year and she has headaches usually with them and sometimes she does not lasting for few seconds. She feels that episodes are and the headache resolved with Topamax and she follows up with a neurologist as outpatient. Recurrent Transient blurry vision for past one year and had one episode yesterday: Seems more ocular migraine--resolved. Recent MRI Brain is reported as Acute/subacute CVA involving the right p eriventricular white matter. However the acute ischemia is is orthogonal and possibly related to demyelination. I personally reviewed the MRI and I felt the diffusion restriction over the right periventricular could be related due to demyelination especially with numerous multiple FLAIR changes on MRI and had few in cerebellum . She stated in past had MRI and showed multiple white matter changes and see's local neurologist who referred her to [facility] Multiple Sclerosis team for escalation of care and is pending. Mobile echodensity attached to the mitral ring leaflet and cardiology felt duane eared more consistent with vegetation and thrombus Low normal vitamin B12 (282) History of mitral valve replacement 2019 and is on Coumadin Underlying history of rheumatoid arthritis Underlying history of Crohn's disease Plan: * MRI Brain: Acute/subacute CVA involving the right periventricular white matter. There are other white matter changes almost all of which are not orthogonal to the lateral ventricle. However the acute ischemia is is orthogonal and possibly related to demyelination. I personally reviewed the MRI and I felt the diffusion restriction over the right periventricular could be related due to demyelination especially with numerous multiple FLAIR changes on MRI and had few in cerebellum . Also with demylinating it is possible to have diffusion restriction in early stages then later has enhancement. I cannot rule out stroke but feel more due to demyinationg. * Patient states she has history of numerous white matter changes in the past and was being seen by Dr. Berrios who referred her to [facility] Neurology team for possible Multiple Sclerosis. * I will pursue with MRI cervical spine and thoracic spine w/ and w/o. * Will hold any steroids for ?MS and will assess what MRI shows. * Patient states she has improvement with a headache as well as visual disturbance with Topamax 50 mg as needed that was prescribed by her neurologist as an outpatient. Therefore I will change it to Topamax 50 mg 1 tablet twice daily scheduled (started on 04/27/24) and since has no further visual disturbance or headache. * For low normal vitamin B12, I started patient on Vitamin B12 1000mcg daily. * Cardiothoracic surgery team is consulted and recommending medical management. * Infection disease team is consulted * Patient is on Coumadin and on aspirin 81 mg daily (ASA is new that was started by cardiology team). * Will defer the rest of the medical management to the primary and other specialist The plan is discussed with patient. Dr. Burrows will resume neurology service tomorrow A.M. Time with Patient: Less than 30
--- NOTE | 2024-05-01 14:38 | P.PN ---
Subjective Progress Note Date: 05/01/24 Principal diagnosis: Reason for follow-up is abnormal echo concerning for mitral valve Patient is a 49-year-old female with a past medical history significant for fibromyalgia hypertension rheumatoid arthritis seizure disorder in this patient who is s/p mechanical aortic valve replacement few years ago presenting to the hospital with chest pain and shortness of breath he did have workup with concern for possible vegetation on the mitral valve prompting this consultation. On today's evaluation that is 05/01/2024, patient has been afebrile, patient is breathing comfortably and is currently on room air, patient denies having any significant cough no chest pain shortness of breath, patient denies nausea vomiting or diarrhea and no abdominal pain, no new symptoms. No CBC was done today INR is 2.2 multiple blood culture has been negative Objective - Vital Signs Vital signs: Vital Signs Temp 97.6 F 05/01/24 11:32 Pulse 69 05/01/24 11:32 Resp 16 05/01/24 11:32 BP 94/63 05/01/24 11:32 Pulse Ox 93 L 05/01/24 11:32 FiO2 Intake & Output 04/30/24 05/01/24 05/01/24 18:59 06:59 18:59 Intake Total 2306 998 Output Total 400 1900 Balance 1906 -1900 998 Weight 105.1 kg Intake: IV 156 78 Heparin Sod,Pork in 0.45% 156 78 NaCl 25,000 unit In 0.45 % NaCl 1 250ml.bag @ 9.76 UNITS/KG/HR 10.004 mls/ hr IV .Q24H [facility] Rx#: [id number] Intake, IV Titration 330 Amount Heparin Sod,Pork in 0.45% 250 NaCl 25,000 unit In 0.45 % NaCl 1 250ml.bag @ 9.76 UNITS/KG/HR 10.004 mls/ hr IV .Q24H [facility] Rx#: [id number] IV Fluid Continuation 1, 80 000 ml @ 0 mls/hr IV .STK -MED ONE Rx#:[id number] Oral 1820 920 Output: Urine 400 1900 - Exam GENERAL DESCRIPTION: Middle-aged female lying in bed in no distress RESPIRATORY SYSTEM: Unlabored breathing , decreased breath sounds at bases HEART: S1 S2 regular rate and rhythm , ABDOMEN: Soft , no tenderness EXTREMITIES: No edema feet - Labs CBC & Chem 7: 04/29/24 07:17 04/29/24 07:17 Labs: Abnormal Lab Results - Last 24 Hours (Table) 05/01/24 Range/Units 07:40 PT 22.0 H (10.0-12.5) sec INR 2.2 H (<1.2) APTT 65.8 H (22.0-30.0) sec Microbiology - Last 24 Hours (Table) 04/27/24 16:06 Blood Culture - Preliminary Blood 04/28/24 08:39 Blood Culture - Preliminary Blood Assessment and Plan (1) Abnormal echocardiogram Current Visit: Yes Status: Acute Code(s): R93.1 - ABNORMAL FINDINGS ON DX IMAGING OF HEART AND COR CIRC SNOMED Code(s): 165184626 (2) Mitral valve vegetation Current Visit: Yes Status: Acute Code(s): I33.0 - ACUTE AND SUBACUTE INFECTIVE ENDOCARDITIS SNOMED Code(s): 713637979 Plan: 1patient presented to hospital with shortness of breath and chest pain in this patient who did have a history of mechanical mitral valve replacement a few years ago and apparently the patient has not been compliant with anticoagulation in the outpatient setting and did have a subtherapeutic INR on admission now with evidence of abnormal SHELBY concerning for possible thrombus versus vegetation on the mitral valve patient did not have any fever or elevated white count does not look toxic and did have a negative blood culture on this admission will make vegetation/endocarditis less likely 2-patient did have multiple blood culture over the last few days that has been negative and the patient also have CRP procalcitonin and ESR there will go against possible endocarditis seems to be doing well off antibiotics and will be monitored closely off antibiotics Dictation was produced using [employer] dictation software. please excuse any grammatical, word or spelling errors. Time with Patient: Less than 30
[2024-05-01] MEDS: WARFARIN 5 MG TAB PO ONE (16:52)
[2024-05-01 23:32] VITALS: RESP 18
[2024-05-02 07:46] VITALS: TEMP 97.7
[2024-05-02 08:34] LABS: INR 3.4 (<1.2); Prothrombin Time 33.2 sec (10.0-12.5)
[2024-05-02 11:48] VITALS: BP 102/66; PULSE 68
--- NOTE | 2024-05-02 11:55 | P.PN ---
Subjective Progress Note Date: 05/02/24 Principal diagnosis: Reason for follow-up is abnormal echo concerning for mitral valve Patient is a 49-year-old female with a past medical history significant for fibromyalgia hypertension rheumatoid arthritis seizure disorder in this patient who is s/p mechanical aortic valve replacement few years ago presenting to the hospital with chest pain and shortness of breath he did have workup with concern for possible vegetation on the mitral valve prompting this consultation. On today's evaluation that is 05/02/2024, Patient is afebrile this morning and denies any chills, patient mention breathing comfortably and is currently on room air, patient denies any chest pain occasional cough patient denies any abdominal pain no diarrhea no nausea no vomiting no new symptoms. Patient did have a INR of 3.4 culture remains to be negative Objective - Vital Signs Vital signs: Vital Signs Temp 97.7 F 05/02/24 07:45 Pulse 68 05/02/24 11:47 Resp 18 05/02/24 11:47 BP 102/66 05/02/24 11:47 Pulse Ox 97 05/02/24 11:47 FiO2 Intake & Output 05/01/24 05/02/24 05/02/24 18:59 06:59 18:59 Intake Total 1697.836 118 Output Total 924 473 6010 Balance 1297.836 -500 -882 Weight 105.6 kg Intake: IV 78 Heparin Sod,Pork in 0.45% 78 NaCl 25,000 unit In 0.45 % NaCl 1 250ml.bag @ 9.76 UNITS/KG/HR 10.004 mls/ hr IV .Q24H [facility] Rx#: [id number] Intake, IV Titration 219.836 Amount Heparin Sod,Pork in 0.45% 219.836 NaCl 25,000 unit In 0.45 % NaCl 1 250ml.bag @ 9.76 UNITS/KG/HR 10.004 mls/ hr IV .Q24H [facility] Rx#: [id number] Oral 1400 118 Output: Urine 806 053 7722 Other: Voiding Method Toilet Toilet Toilet - Exam GENERAL DESCRIPTION: Middle-aged female lying in bed in no distress RESPIRATORY SYSTEM: Unlabored breathing , decreased breath sounds at bases HEART: S1 S2 regular rate and rhythm , ABDOMEN: Soft , no tenderness EXTREMITIES: No edema feet - Labs CBC & Chem 7: 04/29/24 07:17 04/29/24 07:17 Labs: Abnormal Lab Results - Last 24 Hours (Table) 05/02/24 Range/Units 08:03 PT 33.2 H (10.0-12.5) sec INR 3.4 H (<1.2) Microbiology - Last 24 Hours (Table) 04/28/24 08:39 Blood Culture - Preliminary Blood Assessment and Plan (1) Abnormal echocardiogram Current Visit: Yes Status: Acute Code(s): R93.1 - ABNORMAL FINDINGS ON DX IMAGING OF HEART AND COR CIRC SNOMED Code(s): 220599180 (2) Mitral valve vegetation Current Visit: Yes Status: Acute Code(s): I33.0 - ACUTE AND SUBACUTE INFECTIVE ENDOCARDITIS SNOMED Code(s): 555972412 Plan: 1patient presented to hospital with shortness of breath and chest pain in this patient who did have a history of mechanical mitral valve replacement a few years ago and apparently the patient has not been compliant with anticoagulation in the outpatient setting and did have a subtherapeutic INR on admission now with evidence of abnormal SHELBY concerning for possible thrombus versus vegetation on the mitral valve patient did not have any fever or elevated white count does not look toxic and did have a negative blood culture on this admission will make vegetation/endocarditis less likely 2-patient did have multiple blood culture over the last few days that remains to be negative patient did have normal CRP procalcitonin and sed rate will continue monitor the patient closely off antibiotic therapy questions Answered Dictation was produced using [employer] dictation software. please excuse any grammatical, word or spelling errors. Time with Patient: Less than 30
--- NOTE | 2024-05-02 13:05 | P.PN ---
Subjective HISTORY OF PRESENT ILLNESS: History of present illness: Patient is a pleasant 49-year-old significant past medical history of mitral valve replacement in 2019, rheumatoid arthritis seizure disorder, Crohn's disease, presented to the emergency department with complaints of shortness of breath and chest pain. She does not smoke, no alcohol. She reports over the past 3 days her shortness of breath has been getting worse to the point where she was unable to lay flat and unable to walk short distances. She did have episode of chest pain yesterday, describes it as a pain of pain on her left chest. She also has been breaking out in sweats for the past 1 week and has been significantly worse over the past 2 days. He had followed with Dr. Winters previously but has had insurance issues and has not seen a purchasing expeditor recently. She reports she is having difficulty controlling her INR levels. She was last seen in the hospital 09/2023 and echocardiogram at that time with EF 55-60%, mild LVH, mitral valve prosthesis with normal function. Labs reviewed troponin abnormal 0.082, 0.682, 0.796. BNP 2530, INR on arrival was 5.2, 4.6 this morning. WBC 15.3. She denies any recent illness, fevers or chills. She was started on Lasix 40 mg IV every 8 hours. Chest x-ray shows mildmoderate central vascular congestion. She does not have any chest pain today. She still has shortness of breath but is able to walk to the bathroom easier. She denies any swelling in her legs but feels like her abdomen is more distended swollen. She has been more fatigued. Blood pressures have been higher recently at other appointmens. ECHO 04/23/24 with EF 30-35%, normal mitral valve prosthesis, moderate to severe aortic regurgitation. She does see a psychiatrist for her depression, no recent increase in stressors. 04/24 She reports that her breathing is significantly better. Denies any chest pain or pressure. She is still having occasional sweats. Was reviewed this morning: INR 3.1, potassium 3.9, creatinine 0.88. INR 1.9 chest x-ray is showing some improvement. Blood pressure is better controlled with systolic BP 110s, she did have 1 episode in the 90s overnight but was asymptomatic. 04/25 Patient is scheduled for cardiac catheterization today with Dr. Mittal. She denies having any chest pain or shortness of breath at this time. Blood pressure 134/86, heart rate 85, pulse ox 97% on room air. Repeat blood work reveals hemoglobin 13.9. Creatinine 0.89 and BUN 26, potassium 3.5. Patient has been maintained on heparin drip. Echocardiogram reveals EF of 30 to 35%. RVSP 48. Normally functioning mitral mechanical valve. Moderate to severe aortic regurgitation. 04/26 Yesterday, patient underwent cardiac catheterization which revealed no significant coronary artery disease. Approach was from the groin with no signs of hematoma. Patient is complaining of back pain and leg pain. She has been on IV Lasix 40 mg every 8 hours. She has been on a heparin drip and she will be resumed back on Coumadin. Pharmacy is dosing. Blood pressure 92/63, heart rate 71, pulse ox 97% on room air. 04/27 Patient underwent SHELBY today which revealed aortic valve tricuspid and functioning normally with moderate central aortic insufficiency. Mechanical mitral valve with normal functioning mechanical leaflets. Mild paravalvular leak. Mobile echodensity which appears more consistent with vegetation then with a thrombus attached to the mitral ring leaflet. No evidence of PFO. Left atrial appendage is free of clot. EF 55%. Patient returned to her room and consults were placed with neurology, cardiothoracic surgery and infectious disease. Patient apparently has been having transient vision loss. Blood pressure 111/69, heart rate 87. Pulse ox 98% on room air. Repeat blood work reveals INR 1.4. Patient has been resumed on Coumadin pharmacy dosing. Hemoglobin 12.7. Creatinine 0.8. Blood cultures are showing no growth 04/28 Yesterday, we started patient on Farxiga. She has been maintained on IV heparin and pharmacy is dosing Coumadin. Blood pressure 112/78, heart rate 65, pulse ox 97% on room air. Patient has been seen by neurology for transient vision loss which has been occurring for her over the past year lasting very briefly along with headaches. Patient has been evaluated by cardiothoracic surgery as well as infectious disease with consensus that due to lack of fever, leukocytosis and negative blood cultures, most likely thrombus versus vegetation on the mitral valve. No antibiotics started. Patient states that she is feeling better today. She denies any vison loss episodes. All questions and concerns from patient have been discussed in detail. All questions answered. INR is 1.4 again. We w ill order 7.5 mg tonight. Plan for possible discharge home tomorrow. CAT scan of the brain reveals a new hypodense area in the right basal ganglia consider MRI to rule out stroke. CT angio head and neck revealed no evidence of dissection of the cervical internal carotid arteries or vertebral arteries or any evidence of significant stenosis at the carotid bifurcations. No evidence of intracranial high-grade stenosis or intracranial aneurysm. 04/29 Patient remains on heparin drip and last evening she received warfarin 7.5 mg and INR this morning is 1.5. We will order another 7.5 again tonight. She seems to be anxious to go home. Blood pressure 131/80, pulse ox 98% on room air, heart rate 70. 04/30/2024 Patient's INR is 1.7. She has received 2 doses of warfarin 7.5 over last 2 days. Patient is eager to go home. Hemodynamically stable. Denies any further amaurosis fugax or any neurological symptoms. Denies any chest pain appears euvolemic. Normotensive, sinus rhythm on telemetry. Her MRI did show subacute CVA versus demyelination. May 01, 2024 Patient's INR is 2.2 today. Yesterday she received 10 mg of warfarin. Today she will receive 5 mg of warfarin. Hemodynamically stable, no further neurological symptoms. Euvolemic, normotensive, sinus rhythm on telemetry 05/02/2024 Patient examined this morning at bedside. Patient currently denies chest pain or pressure. She denies shortness of breath. Vital signs are stable. INR today 3.4. Her IV heparin has since been discontinued. She remains on Coumadin. PHYSICAL EXAM: VITAL SIGNS: Reviewed. GENERAL: Well-developed in no acute distress. NECK: Supple. No JVD or thyromegaly LUNGS: Respirations even and unlabored. Lungs essentially clear to auscultation bilaterally. HEART: Regular rate and rhythm. S1 and S2 heard. Mechanical click noted EXTREMITIES: Normal range of motion. No clubbing or cyanosis. Peripheral pulses intact. No lower extremity edema ASSESSMENT: Non-STEMI, status post cardiac catheterization revealing normal coronary arteries Subacute CVA versus demyelination, per MRI Acute heart failure with reduced EF, 30 to 35%, currently euvolemic, not taking diuretics on an outpatient basis Possible thrombus versus vegetation on SHELBY, vegetation less likely as blood cultures are negative History of mechanical mitral valve replacement with On-X valve, 2019 Supratherapeutic INR on admission, resolved Nonischemic cardiomyopathy, EF 30 to 35% PLAN: Continue current cardiac medications Recommend patient be discharged home on Coumadin 4 mg daily and have her INR checked by her PCP in 2 to 3 days Patient may be discharged home today from a cardiac standpoint Nurse practitioner note has been reviewed by physician. Signing provider agrees with the documented findings, assessment, and plan of care documented by RN [facility] as a scribe. Objective - Vital Signs Vital signs: Vital Signs Temp 97.7 F 05/02/24 07:45 Pulse 68 05/02/24 11:47 Resp 18 05/02/24 11:47 BP 102/66 05/02/24 11:47 Pulse Ox 97 05/02/24 11:47 FiO2 Intake & Output 05/01/24 05/02/24 05/02/24 18:59 06:59 18:59 Intake Total 1697.836 118 Output Total 932 947 2461 Balance 1297.836 -500 -882 Weight 105.6 kg Intake: IV 78 Heparin Sod,Pork in 0.45% 78 NaCl 25,000 unit In 0.45 % NaCl 1 250ml.bag @ 9.76 UNITS/KG/HR 10.004 mls/ hr IV .Q24H [facility] Rx#: [id number] Intake, IV Titration 219.836 Amount Heparin Sod,Pork in 0.45% 219.836 NaCl 25,000 unit In 0.45 % NaCl 1 250ml.bag @ 9.76 UNITS/KG/HR 10.004 mls/ hr IV .Q24H [facility] Rx#: [id number] Oral 1400 118 Output: Urine 974 498 7414 Other: Voiding Method Toilet Toilet Toilet - Labs CBC & Chem 7: 04/29/24 07:17 04/29/24 07:17 Labs: Abnormal Lab Results - Last 24 Hours (Table) 05/02/24 Range/Units 08:03 PT 33.2 H (10.0-12.5) sec INR 3.4 H (<1.2) Microbiology - Last 24 Hours (Table) 04/28/24 08:39 Blood Culture - Preliminary Blood
[2024-05-02] MEDS: WARFARIN 0.5 MG TAB PO ONE (16:07)
== END 2024-05-02 17:08 | disposition home or self-care (01) | DRG 190 ==
LOC: EC 09:35 → 3SCARD 12:50 → OBSVTOIN 12:51 → 3SCARD 14:30
PROVIDERS: ADMIT Internal Medicine; ATTEND Internal Medicine
PROC: B2111ZZ Fluoroscopy of Multiple Coronary Arteries using Low Osmolar Contrast (ICD-10-PCS; 2024-04-25)
PROC: B2151ZZ Fluoroscopy of Left Heart using Low Osmolar Contrast (ICD-10-PCS; 2024-04-25)
PROC: 4A023N7 Measurement of Cardiac Sampling and Pressure, Left Heart, Percutaneous Approach (ICD-10-PCS; principal; 2024-04-25 10:55)
DX: I21.4 Non-ST elevation (NSTEMI) myocardial infarction (principal); I11.0 Hypertensive heart disease with heart failure; I35.1 Nonrheumatic aortic (valve) insufficiency; E66.9 Obesity, unspecified; Z68.34 Body mass index [BMI] 34.0-34.9, adult; M79.7 Fibromyalgia; G89.29 Other chronic pain; G40.909 Epilepsy, unspecified, not intractable, without status epilepticus; M06.9 Rheumatoid arthritis, unspecified; F32.A Depression, unspecified; T45.516A Underdosing of anticoagulants, initial encounter; I63.9 Cerebral infarction, unspecified; I50.23 Acute on chronic systolic (congestive) heart failure; I42.8 Other cardiomyopathies; R79.1 Abnormal coagulation profile; F90.9 Attention-deficit hyperactivity disorder, unspecified type; G43.909 Migraine, unspecified, not intractable, without status migrainosus; K50.90 Crohn's disease, unspecified, without complications; F41.9 Anxiety disorder, unspecified; Z91.148 Patient's other noncompliance with medication regimen for other reason; Z79.01 Long term (current) use of anticoagulants; Z79.51 Long term (current) use of inhaled steroids; Z79.899 Other long term (current) drug therapy; Z88.0 Allergy status to penicillin; Z88.2 Allergy status to sulfonamides; Z88.8 Allergy status to other drugs, medicaments and biological substances; Z91.040 Latex allergy status; Z82.49 Family history of ischemic heart disease and other diseases of the circulatory system; Z95.2 Presence of prosthetic heart valve; Z91.120 Patient's intentional underdosing of medication regimen due to financial hardship
CPT/HCPCS: 36415; 70450; 70496; 70498; 70553; 71045; 71046; 80048; 80053; 80061; 82607; 83735; 83880; 84145; 84443; 84484; 85025; 85610; 85652; 85730; 86140; 87040; 93005; 93306; 93312; 93320; 93325; 93458; 94640; 94760; 96374; 99285

== ENCOUNTER → 2024-06-22 | Outpatient (CLI) | payer OTHER ==
[2024-06-22 13:11] VITALS: BP 125/80; PULSE 63; RESP 16; TEMP 98.6
--- NOTE | 2024-06-22 14:08 | P.PAINPG ---
PQRS Measure Charge Sheet Comment: HISTORY OF PRESENT ILLNESS: A 49 yr old female as a referral from Dr Mercado presents today w severe and chronic LBP> 6 mo secondary to radiculopathy, spondylosis and facet arthropathy without myelopathy for evaluation. Pt states pain level is provoked at 9 /10 in intensity, constant, localized in the lower lumbar spine, predominantly axial, sharp in character w occasional shooting pain towards the hips. Pain is provoked by over activity. Pain is alleviated by PT x 3 wks which she is currently in , medications (Tyl, Ibu), repositioning and rest . Pt is currently doing "cardiac rehab" and will consider PT at this time before she agrees to an JESI. PMH: OA, Angina, Fibromyalgia, HTN, RA, Seizure Disorder, Crohn's Disease, IBS, MDD/ ADD/ ADHD/ Anxiety/ PTSD PSH: Cardiac Catheterization, Mitral Valve Replacement (2019), Cholecystectomy, Laparoscopy (1994), D&C SH: Never smoker, No ETOH use, Cannabis use FH: Brother- in May 2023 from OD. Mo- CHF. Fa- ETOH toxicity All: See list Meds: See list REVIEW OF ORGAN SYSTEMS: CONSTITUTIONAL: No fevers or chills. No recent weight loss. NEUROLOGICAL: + numbness and tingling along the distal extremities. No seizure disorders or headaches. MUSCULOSKELETAL: + pain PSYCHIATRIC: Denies current depression or suicidal thoughts. Physical Examinations : Constitutional : Cooperative , not in acute distress . Neurologic : Cranial nerve II to XII intact. No focal neurological deficits. Psychiatric : alert & oriented x 3. Matching mood & appropriate affect. Judgment & insight intact. Musculoskeletal : Cervical Spine Motor strength in the deltoid and biceps: Normal right side. Normal Left side Motor strength biceps and the wrist extensors: Normal right side . Normal left side Motor strength in the triceps muscle: Normal right side. Normal left side Deep tendon reflexes: Normal at the biceps. Normal at Brachioradialis. Normal at triceps Vertebral body tenderness to deep palpation over Cervical facet loading test: positive bilaterally Spurling test: positive bilaterally Neck distraction test: positive bilaterally Nayana sign: positive bilaterally Lumbar spine Motor strength lower extremities ,thigh and legs 5/5 Right side , 5/5 Left side Deep tendon reflexes : Normal Knee Jerk. Normal Ankle Jerk Vertebral body tenderness over Sterling Test positive Lumbar facet Loading Test: positive Right / positive Left Range of motion of the lumbar spine Flexion 30 degrees, extension 10 degrees Straight Leg Raise test: Left/ Right positive at degrees Dagoberto test: positive right / positive left. Severe tenderness over the Sacroiliac joint on the Right / Left sides Gaenslen test: positive bilaterally Seated flexion test: positive bilaterally. Sacral spine : Severe tenderness over the Sacroiliac joint: right side / left side Range of motion: Flexion of the lumbar spine <60 degrees Range of motion: Extension of the lumbar spine <20 degrees Gaenslen's Test positive Dagoberto test: positive right side / left side Thigh Thrust Test Sacral Thrust Test Imaging: MRI non contrast lumbar spine reviewed Assessment/ Plan : Lumbar radiculopathy Recommendation of PT x 6 wks M54.16 script provided. All questions answered. I have spent greater than 30 minutes on patient care today. Dr Arrington was available by phone for the evaluation of this patient. The time was used to review the medical records including relevant urine studies and Prescription history (MAPs), review of the available imaging, evaluation and examination of the patient, coordination of care with the medical staff and if applicable referring physicians, as well as creation of the medical record PQRS Narrative: Smoking Status Never smoker Home Medications: Ambulatory Orders traZODone HCL 150 mg PO HS #30 tab 10/24/23 Metoprolol Tartrate [Lopressor] 25 mg PO BID 90 Days #180 tab 10/30/23 Budesonide-Formot 160-4.5 Mcg [Symbicort 160-4.5 Mcg Inhaler] 2 puff INHALATION RT-BID 30 Days #1 each 11/01/23 Dicyclomine [Bentyl] 20 mg PO TID-W/MEALS PRN 04/22/24 Loratadine [Claritin] 10 mg PO DAILY 04/22/24 Pantoprazole [Protonix] 40 mg PO DAILY 04/22/24 Venlafaxine HCl [Effexor XR] 150 mg PO DAILY 04/22/24 busPIRone HCL 15 mg PO BID 04/22/24 Acetaminophen Tab [Tylenol] 650 mg PO Q6HR PRN tab 05/02/24 Aspirin 81 mg PO DAILY #30 tab 05/02/24 Cyanocobalamin [Vitamin B-12] 1,000 mcg PO DAILY #60 tab 05/02/24 Cyclobenzaprine [Flexeril] 5 mg PO TID PRN #20 tab 05/02/24 Dapagliflozin Propanediol [Farxiga] 10 mg PO DAILY #30 tab 05/02/24 HYDROcodone/APAP 5-325MG [[place] 5-325] 1 each PO Q6HR PRN #6 tab 05/02/24 Nitroglycerin Sl Tabs [Nitrostat] 0.4 mg SUBLINGUAL Q5M PRN #20 tab 05/02/24 Sacubitril/Valsartan [Entresto 24 mg-26 mg Tablet] 1 each PO BID 30 Days #60 tab 05/02/24 Spironolactone [Aldactone] 25 mg PO DAILY #30 tab 05/02/24 Topiramate [Topamax] 50 mg PO BID 30 Days #120 tab 05/02/24 Warfarin [Coumadin] 4 mg PO DAILY #60 tab 05/02/24 Controlled Substance Measures - Controlled Substance Measures Is patient prescribed a controlled substance at discharge?: No
== END ==
LOC: PNWHC3 12:45
PROVIDERS: ATTEND Specialist
DX: M51.9 Unspecified thoracic, thoracolumbar and lumbosacral intervertebral disc disorder
CPT/HCPCS: 99211

== ENCOUNTER 2024-08-23 16:39 | Emergency (ER) | payer OTHER ==
[2024-08-23 16:42] VITALS: RESP 18
[2024-08-23 17:07] LABS: Basophils % (A) 0 %; Eosinophils # (A) 0.1 k/uL (0-0.7); Eosinophils % (A) 2 %; HGB 14.2 gm/dL (11.4-16.0); Hypochromasia Slight; Lymphocytes # (A) 1.5 k/uL (1.0-4.8); Lymphocytes % (A) 19 %; MCH 26.3 pg (25.0-35.0); MCHC 32.4 g/dL (31.0-37.0); MCV 81.1 fL (80.0-100.0); Mean Platelet Volume 7.2; Monocytes # (A) 0.5 k/uL (0-1.0); Monocytes % (A) 6 %; Neutrophils # (A) 5.6 k/uL (1.3-7.7); Neutrophils % (A) 71 %; Platelet Count 382 k/uL (150-450); RBC 5.42 m/uL (3.80-5.40); RDW 15.6 % (11.5-15.5)
[2024-08-23 17:19] LABS: ALT 22 U/L (4-34); AST 37 U/L (14-36); African American GFR (CKD) >90 (>60 ml/min/1.73 sqM); Albumin 4.9 g/dL (3.5-5.0); Alkaline Phosphatase 83 U/L (38-126); Anion Gap 13 mmol/L; Blood Urea Nitrogen 16 mg/dL (7-17); Calcium 9.4 mg/dL (8.4-10.2); Carbon Dioxide 21 mmol/L (22-30); Chloride 105 mmol/L (98-107); Glucose 105 mg/dL (74-99); Magnesium 1.6 mg/dL (1.6-2.3); Non-African American GFR(CKD) 79 (>60 ml/min/1.73 sqM); Potassium 3.7 mmol/L (3.5-5.1); Sodium 139 mmol/L (137-145); Total Bilirubin 0.6 mg/dL (0.2-1.3); Total Protein 9.4 g/dL (6.3-8.2)
--- NOTE | 2024-08-23 17:20 | ED ---
Chest Pain HPI - General Source: patient, RN notes reviewed Mode of arrival: ambulatory Limitations: no limitations - History of Present Illness MD Complaint: chest pain Onset/Timin -: days(s) Pain Location: left chest Pain Radiation: LUE Severity scale (1-10): 9 Consistency: intermittent Anginal Symptoms: dyspnea Treatments Prior to Arrival: nitroglycerin <Phi Burch - Last Filed: 08/23/24 17:17> - General Source: patient, RN notes reviewed, old records reviewed Mode of arrival: ambulatory Limitations: no limitations - History of Present Illness MD Complaint: chest pain -: days(s) Pain Location: left chest Pain Radiation: LUE Severity scale (1-10): 9 Consistency: intermittent Improves With: nothing Worsens With: nothing Treatments Prior to Arrival: none <Arben Rousseau - Last Filed: 08/24/24 19:55> - General Chief Complaint: Chest Pain Stated Complaint: SOB,chest pain Time Seen by Provider: 08/23/24 16:55 - History of Present Illness Initial Comments: Quick note: This is a 49-year-old female with history of mitral valve replacement, CHF, CVA, angina, heart catheterization presenting with left upper chest pain (9 out of 10) and shortness of breath x 1 week. Patient states she presented to Dr. Rosenthal with her current symptoms and was immediately sent to the ER. Patient states pain is intermittent and radiating to her left arm. Also endorses occasional left side headache. Patient states she takes warfarin with her INR being at 4.5. States she took nitroglycerin prior to arrival but otherwise denies medication use besides her daily medication. Patient also mentions dysuria x 1 day. Patient denies fever, chills, dizziness, sweating, pallor, abdominal pain, N/V/D. (Phi Burch) This is a 49-year-old female to the ER for evaluation, patient has chest pain left-sided chest pain her primary care and sent to ER for evaluation. (Arben Rousseau) - Related Data Home Medications Medication Instructions Recorded Confirmed Dicyclomine [Bentyl] 20 mg PO TID-W/MEALS PRN 04/22/24 04/22/24 Loratadine [Claritin] 10 mg PO DAILY 04/22/24 04/22/24 Pantoprazole [Protonix] 40 mg PO DAILY 04/22/24 04/22/24 Venlafaxine HCl [Effexor XR] 150 mg PO DAILY 04/22/24 04/22/24 busPIRone HCL 15 mg PO BID 04/22/24 04/22/24 Previous Rx's Medication Instructions Recorded traZODone HCL 150 mg PO HS #30 tab 10/24/23 Metoprolol Tartrate [Lopressor] 25 mg PO BID 90 Days #180 tab 10/30/23 Budesonide-Formot 160-4.5 Mcg 2 puff INHALATION RT-BID 30 Days 11/01/23 [Symbicort 160-4.5 Mcg Inhaler] #1 each Acetaminophen Tab [Tylenol] 650 mg PO Q6HR PRN tab 05/02/24 Aspirin 81 mg PO DAILY #30 tab 05/02/24 Cyanocobalamin [Vitamin B-12] 1,000 mcg PO DAILY #60 tab 05/02/24 Cyclobenzaprine [Flexeril] 5 mg PO TID PRN #20 tab 05/02/24 Dapagliflozin Propanediol [Farxiga] 10 mg PO DAILY #30 tab 05/02/24 HYDROcodone/APAP 5-325MG [[place] 1 each PO Q6HR PRN #6 tab 05/02/24 5-325] Nitroglycerin Sl Tabs [Nitrostat] 0.4 mg SUBLINGUAL Q5M PRN #20 tab 05/02/24 Sacubitril/Valsartan [Entresto 24 1 each PO BID 30 Days #60 tab 05/02/24 mg-26 mg Tablet] Spironolactone [Aldactone] 25 mg PO DAILY #30 tab 05/02/24 Topiramate [Topamax] 50 mg PO BID 30 Days #120 tab 05/02/24 Warfarin [Coumadin] 4 mg PO DAILY #60 tab 05/02/24 Allergies Allergy/AdvReac Type Severity Reaction Status Date / Time latex Allergy Rash/Hives Verified 08/23/24 16:42 Penicillins Allergy Anaphylaxis Verified 08/23/24 16:42 prochlorperazine edisylate Allergy Anaphylaxis Verified 08/23/24 16:42 [From Compazine] prochlorperazine maleate Allergy Anaphylaxis Verified 08/23/24 16:42 [From Compazine] sulfamethoxazole Allergy Unknown Verified 08/23/24 16:42 [From Bactrim] trimethoprim [From Bactrim] Allergy Unknown Verified 08/23/24 16:42 atorvastatin [From Lipitor] AdvReac Diarrhea Verified 08/23/24 16:42 Review of Systems ROS Other: All systems not noted in ROS Statement are negative. <MarcinPhi - Last Filed: 08/23/24 17:17> ROS Other: All systems not noted in ROS Statement are negative. <Arben Rousseau - Last Filed: 08/24/24 19:55> ROS Statement: Those systems with pertinent positive or pertinent negative responses have been documented in the HPI. EKG Findings - EKG Comments: EKG Findings:: EKG is sinus 72 RI 182 QRS 78 QTc 421 - EKG Results: EKG: interpreted by ERMD <Arben Rousseau - Last Filed: 08/24/24 19:55> Past Medical History Past Medical History: Chest Pain / Angina, Fibromyalgia, Hypertension, Memory Impairment, Rheumatoid Arthritis (RA), Seizure Disorder, Syncope Additional Past Medical History / Comment(s): irritable bowel, crohn's disease, vertigo, hypoglycemia, mechanical heart valve, diverticulosis History of Any Multi-Drug Resistant Organisms: None Reported Past Surgical History: Cardiac Valve Replacement, Cholecystectomy, Heart Catheterization Additional Past Surgical History / Comment(s): laparoscopy 1994, D&C, colonoscopies, mitral valve replacememnt in 06/14. Past Anesthesia/Blood Transfusion Reactions: No Reported Reaction Additional Past Anesthesia/Blood Transfusion Reaction / Comment(s): slow to wake up @times Past Psychological History: ADD/ADHD, Anxiety, Depression, Panic Disorder, PTSD Smoking Status: Never smoker Past Alcohol Use History: None Reported Past Drug Use History: Marijuana - Past Family History Mother Family Medical History: Congestive Heart Failure (CHF) Father Additional Family Medical History / Comment(s): ETOH, unknown history <MarcinPhi - Last Filed: 08/23/24 17:17> General Exam Limitations: no limitations <MarcinPhi - Last Filed: 08/23/24 17:17> General appearance: alert, in no apparent distress Head exam: Present: atraumatic, normocephalic, normal inspection Eye exam: Present: normal appearance, PERRL, EOMI. Absent: scleral icterus, conjunctival injection, periorbital swelling ENT exam: Present: normal exam, mucous membranes moist Neck exam: Present: normal inspection. Absent: tenderness, meningismus, lymphadenopathy Respiratory exam: Present: normal lung sounds bilaterally. Absent: respiratory distress, wheezes, rales, rhonchi, stridor Cardiovascular Exam: Present: regular rate, normal rhythm, normal heart sounds. Absent: systolic murmur, diastolic murmur, rubs, gallop, clicks GI/Abdominal exam: Present: soft, normal bowel sounds. Absent: distended, tenderness, guarding, rebound, rigid Extremities exam: Present: normal inspection, full ROM, normal capillary refill. Absent: tenderness, pedal edema, joint swelling, calf tenderness Back exam: Present: normal inspection Neurological exam: Present: alert, oriented X3, CN II-XII intact Psychiatric exam: Present: normal affect, normal mood Skin exam: Present: warm, dry, intact, normal color. Absent: rash <Arben Rousseau - Last Filed: 08/24/24 19:55> - General Exam Comments Initial Comments: Visual Physical Exam Vital signs reviewed General: Well-appearing, nontoxic, no acute distress. Head: Normocephalic, atraumatic Eyes: PERRLA, EOMI ENT: Airway patent Chest: Nonlabored breathing Skin: No visual rash, normal skin tone Neuro: Alert and oriented 3 Musculoskeletal: No gross abnormalities (Phi Burch) Course <Arben Rousseau - Last Filed: 08/24/24 19:55> Vital Signs 08/23/24 08/23/24 16:40 18:42 Temperature 99.0 F 98.9 F Pulse Rate 81 64 Respiratory 18 18 Rate Blood Pressure 153/83 124/80 O2 Sat by Pulse 97 98 Oximetry - Reevaluation(s) Reevaluation #1: 08/23/24 18:49 Medical records reviewed (Arben Rousseau) Reevaluation #2: 08/23/24 18:49 Patient symptoms unchanged (Arben Rousseau) Reevaluation #3: 08/23/24 18:49 Patient informed of results and questions answered (Arben Rousseau) Reevaluation #4: Was pt. sent in by a medical professional or institution (BARBARA Aranda, CLOUD ARCHITECT, urgent care, hospital, or fdc...) When possible be specific @ -no Did you speak to anyone other than the patient for history (EMS, parent, family, police, friend...)? What history was obtained from this source @ -no Did you review nursing and triage notes (agree or disagree)? Why? @ -agree Are old charts reviewed (outside hosp., previous admission, EMS record, old EKG, old radiological studies, urgent care reports/EKG's, fdc records)? Report findings @ -yes Differential Diagnosis (chest pain, altered mental status, abdominal pain women, abdominal pain men, vaginal bleeding, weakness, fever, dyspnea, syncope, headache, dizziness, GI bleed, back pain, seizure, CVA, palpatations, mental health, musculoskeletal)? @ -prior EKG interpreted by me (3pts min.). @ -yes X-rays interpreted by me (1pt min.). @ -yes negative for acute disease CT interpreted by me (1pt min.). @ -no U/S interpreted by me (1pt. min.). @ -no What testing was considered but not performed or refused? (CT, X-rays, U/S, labs)? Why? @ -none What meds were considered but not given or refused? Why? @ -none Did you discuss the management of the patient with other professionals (professionals i.e. BARBARA Aranda, CLOUD ARCHITECT, lab, RT, psych nurse, public health social worker, physician vice president, teacher, field crop technical officer, outpatient case manager)? Give summary @ -no Was smoking cessation discussed for >3mins.? @ -no Was critical care preformed (if so, how long)? @ -no Were there social determinants of health that impacted care today? How? (Homelessness, low income, unemployed, alcoholism, drug addiction, transportation, low edu. Level, literacy, decrease access to med. care, group home, rehab)? @ -none Was there de-escalation of care discussed even if they declined (Discuss DNR or withdrawal of care, Hospice)? DNR status @ -no What co-morbidities impacted this encounter? (DM, HTN, Smoking, COPD, CAD, Cancer, CVA, ARF, Chemo, Hep., AIDS, mental health diagnosis, sleep apnea, morbid obesity)? @ -none Was patient admitted / discharged? Hospital course, mention meds given and route, prescriptions, significant lab abnormalities, going to OR and other pertinent info. @ - 49 female for chest pain. Patient's chest pain is improved here in the ER troponin negative normal heart catheterization 5 months ago. Patient can be discharged home Discharge Undiagnosed new problem with uncertain prognosis? @ -no Drug Therapy requiring intensive monitoring for toxicity (Heparin, Nitro, Insulin, Cardizem)? @ -no Were any procedures done? @ -no Diagnosis/symptom? @ -Chest pain Acute, or Chronic, or Acute on Chronic? @ -Acute Uncomplicated (without systemic symptoms) or Complicated (systemic symptoms)? @ -Complicated Side effects of treatment? @ -no Exacerbation, Progression, or Severe Exacerbation? @ -exacerbation Poses a threat to life or bodily function? How? (Chest pain, [place], DC, pneumonia, PE, COPD, DKA, ARF, appy, cholecystitis, CVA, Diverticulitis, Homicidal, Suicidal, threat to staff... and all critical care pts) @ -yes with chest pain (Arben Rousseau) Reevaluation #5: Differential Chest Pain: Stable Angina, Unstable Angina, STEMI, NSTEMI Aortic Dissection, Pneumothorax, Musculoskeletal, Esophageal Spasm GERD, Cholecystitis, Pancreatitis, Zoster, this is not meant to be an all-inclusive list. (Arben Rousseau) Chest Pain MDM <Phi Burch - Last Filed: 08/23/24 17:17> <Arben Rousseau - Last Filed: 08/24/24 19:55> - MDM I completed the quick note portion of this chart signed HUMBERTO Colvin (Phi Burch) 49 female for chest pain. Patient's chest pain is improved here in the ER troponin negative normal heart catheterization 5 months ago. Patient can be discharged home (Arben Rousseau) Disposition <Phi Burch - Last Filed: 08/23/24 17:17> Is patient prescribed a controlled substance at d/c from ED?: No Time of Disposition: 18:50 <Arben Rousseau - Last Filed: 08/24/24 19:55> Clinical Impression: Atypical chest pain, Chest pain Disposition: HOME SELF-CARE Condition: Good Instructions (If sedation given, give patient instructions): Chest Pain (ED) Referrals: Jess Guevara MD [Primary Care Provider] - 1-2 days
[2024-08-23 17:21] LABS: INR 3.4 (<1.2); Partial Thromboplastin Time 41.7 sec (22.0-30.0); Prothrombin Time 33.5 sec (10.0-12.5)
--- NOTE | 2024-08-23 17:44 | XR ---
EXAMINATION TYPE: XR chest 2V DATE OF EXAM: 08/23/2024 COMPARISON: 04/27/2024 INDICATION: History of mitral valve replacement, chest pain TECHNIQUE: Frontal and lateral views of the chest are obtained. FINDINGS: The heart size is normal. Sternotomy wires are present from prior cardiac valve surgery The pulmonary vasculature is normal. The lungs are clear. IMPRESSION: 1. No acute pulmonary process. [facility], Workstation: [id number], 08/23/2024 5:42 PM
[2024-08-23 18:51] VITALS: BP 124/80; PULSE 64; TEMP 98.9
== END 2024-08-23 18:54 | disposition home or self-care (01) ==
LOC: EC 16:39
DX: R07.89 Other chest pain (principal); Z88.8 Allergy status to other drugs, medicaments and biological substances; Z88.1 Allergy status to other antibiotic agents; Z88.0 Allergy status to penicillin
CPT/HCPCS: 36415; 71046; 80053; 83735; 84484; 85025; 85610; 85730; 93005; 99285

== ENCOUNTER → 2025-03-03 | Outpatient (CLI) | payer OTHER ==
--- NOTE | 2025-03-03 12:04 | CT ---
EXAMINATION TYPE: CT abdomen pelvis w con CT DLP: 2026.4 mGycm, Automated exposure control for dose reduction was used. DATE OF EXAM: 03/03/2025 11:54 AM COMPARISON: CT abdomen pelvis 10/26/2023 CLINICAL INDICATION:Female, 49 years old with history of R31.29 MICROSCOPIC HEMATURIA; Microscopic he maturia. Crohns disease. TECHNIQUE: Standard CT of the abdomen and pelvis following the administration of 100 cc of Isovue 3 00 IV contrast material and oral contrast. Coronal and sagittal reformats were performed. FINDINGS: LOWER CHEST: Linear atelectasis within the lingula and left lower lobe. Median sternotomy wires. Post surgical changes with valvular replacement of the mitral valve. ABDOMEN LIVER: Unremarkable GALLBLADDER AND BILE DUCTS: The gallbladder is surgically absent. No biliary ductal dilatation. PANCREAS: Unremarkable. SPLEEN: Unremarkable. ADRENAL GLANDS: Unremarkable. KIDNEYS AND URETERS: No evidence of hydronephrosis or renal calculus. The kidneys enhance symmetrical ly. Contrast is demonstrated within both collecting systems and proximal ureters on the delayed phase . PELVIS BLADDER: Unremarkable REPRODUCTIVE: Unremarkable. ABDOMEN & PELVIS STOMACH AND BOWEL: Stomach and duodenum are unremarkable. Enteric contrast reaches the proximal trans verse colon. Mild amount of stool is present throughout the colon. No focal bowel wall thickening or surrounding inflammatory changes. A few scattered colonic diverticula of the descending colon. The ap pendix is not definitively identified. No evidence of bowel obstruction. PERITONEUM: No evidence of pneumoperitoneum or free fluid. VASCULATURE: Mild atherosclerotic calcifications are present throughout the abdominal aorta and its b ranches. No evidence of aortic aneurysm. Pelvic phleboliths. MUSCULOSKELETAL: No acute osseous abnormalities. Mild degenerative disc disease throughout the thorac olumbar spine. LYMPH NODES: No evidence for lymphadenopathy. SOFT TISSUE/ABDOMINAL WALL: Unremarkable IMPRESSION: 1. No CT evidence for acute abdominal/pelvic process. 2. Colonic diverticulosis without evidence for acute diverticulitis. [facility], , 03/03/2025 12:01 PM
== END | disposition home or self-care (01) ==
LOC: RADCTMAIN 09:57
PROVIDERS: ATTEND Family Medicine
DX: K57.30 Diverticulosis of large intestine without perforation or abscess without bleeding (principal); R31.29 Other microscopic hematuria
CPT/HCPCS: 74177; Q9967